=== PATIENT | male | born 1965 | race Caucasian/White ===

== ENCOUNTER 2020-05-13 20:37 | Emergency (ER) | payer BC ==
[2020-05-13 20:44] VITALS: RESP 18
[2020-05-13] MEDS ORDERED: LIDOCAINE 1% INJ 10MG/ML (20 ML MDV) SQ ONE (21:24)
[2020-05-13] MEDS ORDERED: DIPH,PERTUS(ACELL)TETVAC-LF 0.5 ML VIAL IM ONE (21:34)
--- NOTE | 2020-05-13 21:36 | ED ---
General Adult HPI - General Source: patient, RN notes reviewed Mode of arrival: ambulatory Limitations: no limitations <Ajit Garcia - Last Filed: 05/13/20 21:52> <Raquel Shelley - Last Filed: 05/14/20 16:37> - General Chief complaint: Wound/Laceration Stated complaint: Finger Laceration Time Seen by Provider: 05/13/20 20:57 - History of Present Illness Initial comments: 55-year-old male presents to the emergency room for laceration of the left second digit. Patient reports he was trying to cut a zip tie cut his finger. Denies any difficulty bending or moving his finger. Denies any possibility of foreign body. Tenderness is not up-to-date.Patient has no other complaints at this time including shortness of breath, chest pain, abdominal pain, nausea or vomiting, headache, or visual changes. (Ajit Garcia) - Related Data Previous Rx's Medication Instructions Recorded Acetaminophen with Codeine 1 tab PO Q4H PRN #20 tab 05/14/15 [Tylenol w/codeine #3] Orphenadrine [Norflex] 100 mg PO Q12H PRN #15 tablet.er 05/14/15 Allergies Allergy/AdvReac Type Severity Reaction Status Date / Time No Known Allergies Allergy Verified 05/13/20 20:44 Review of Systems ROS Other: All systems not noted in ROS Statement are negative. <Ajit Garcia - Last Filed: 05/13/20 21:52> ROS Other: All systems not noted in ROS Statement are negative. <Raquel Shelley - Last Filed: 05/14/20 16:37> ROS Statement: Those systems with pertinent positive or pertinent negative responses have been documented in the HPI. Past Medical History Past Medical History: No Reported History Additional Past Medical History / Comment(s): TB 1997 History of Any Multi-Drug Resistant Organisms: None Reported Past Surgical History: No Surgical Hx Reported Past Psychological History: No Psychological Hx Reported Smoking Status: Former smoker Past Alcohol Use History: Rare Past Drug Use History: None Reported <Ajit Garcia - Last Filed: 05/13/20 21:52> General Exam Limitations: no limitations General appearance: alert, in no apparent distress Head exam: Present: atraumatic, normocephalic Eye exam: Present: normal appearance, PERRL, EOMI. Absent: scleral icterus, conjunctival injection ENT exam: Present: normal exam, mucous membranes moist Neck exam: Present: normal inspection, full ROM. Absent: tenderness Respiratory exam: Present: normal lung sounds bilaterally. Absent: respiratory distress, wheezes Cardiovascular Exam: Present: regular rate, normal rhythm, normal heart sounds Extremities exam: Present: full ROM (Full range of motion Of the left second digitincluding full flexion of the left second digit MCP joint.), normal capillary refill (Doppler refill less than 2 seconds in the left second digit, radial pulse 2+ in the left upper extremity.), other (Patient has a 1 cm laceration noted on the palmar aspect of second digit MCP joint. No deep structure injury.) Neurological exam: Present: alert <Ajit Garcia - Last Filed: 05/13/20 21:52> Course Vital Signs 05/13/20 05/13/20 20:40 22:05 Temperature 97.9 F 98 F Pulse Rate 90 78 Respiratory 18 18 Rate Blood Pressure 166/97 133/77 O2 Sat by Pulse 97 98 Oximetry Procedures - Laceration Laceration #1 Consent Obtained: verbal consent Indication: laceration Site: hand Size (cm): 1 Description: linear Depth: simple, single layer Anesthetic Used: lidocaine 1% Anesthesia Technique: local infiltration Amount (mls): 2 Pre-repair: wound explored, irrigated extensively Type of Sutures: nylon Size of Sutures: 5-0 Number of Sutures: 3 Technique: simple, interrupted Patient Tolerated Procedure: well, no complications <Ajit Garcia - Last Filed: 05/13/20 21:52> Medical Decision Making <Ajit Garcia - Last Filed: 05/13/20 21:52> <Raquel Shelley - Last Filed: 05/14/20 16:37> - Medical Decision Making Laceration was irrigated thoroughly with saline pressure irrigation. It was sutured with 3 simple rapid sutures. Well approximated, hemostasis achieved. Discussed return parameters including those for infections. Otherwise patient will Return in 10 days for suture removal. (Ajit Garcia) I was available for consultation in the emergency department. The history and physical exam were done by the midlevel provider. I was consulted for this patients care. I reviewed the case with the midlevel provider and based on their presentation of the patient, I agree with the assessment, medical decision making and plan of care as documented. Chart was dictated using Lum[employer] dictation software. Attempts were made to correct any dictation errors however some typographical errors may persist. Patient was seen during a national state of emergency due to the Covid-19 pandemic. (Raquel Shelley) Disposition Is patient prescribed a controlled substance at d/c from ED?: No Time of Disposition: 21:53 <Ajit Garcia - Last Filed: 05/13/20 21:52> <Raquel Shelley - Last Filed: 05/14/20 16:37> Clinical Impression: Laceration Disposition: HOME SELF-CARE Condition: Good Instructions (If sedation given, give patient instructions): Care For Your Stitches (ED), Laceration (ED) Additional Instructions: Please clean wound twice daily with gentle soap and water. Apply antibiotic ointment Twice daily as well. Monitor for any signs of infection such as spreading or streaking redness, drainage, or fever and return if these occur. Return if you have any severe pain with extending the finger. Return to the emergency room for suture removal in 10 days. Referrals: Josette Albright MD [REFERRING] - 1-2 days
[2020-05-13 22:05] VITALS: BP 133/77; PULSE 78; TEMP 98
== END 2020-05-13 22:05 | disposition home or self-care (01) ==
LOC: EC 20:37
DX: S61.211A Laceration without foreign body of left index finger without damage to nail, initial encounter (principal); Z87.891 Personal history of nicotine dependence; Z86.11 Personal history of tuberculosis; Z23 Encounter for immunization; W45.8XXA Other foreign body or object entering through skin, initial encounter; Y93.89 Activity, other specified
CPT/HCPCS: 90715; 99282; 12001; 90471; J2001

== ENCOUNTER 2021-02-04 10:01 | Inpatient (IN) | payer BC ==
[2021-02-04] MEDS ORDERED: DEXAMETHASONE SOD PHOSPHATE 10 MG/ML 1 ML VIAL IVP STA (10:23)
--- NOTE | 2021-02-04 10:32 | XR ---
EXAMINATION TYPE: XR chest 1V portable DATE OF EXAM: 02/04/2021 COMPARISON: 05/14/2015 HISTORY: Shortness of breath TECHNIQUE: Single frontal view of the chest is obtained. FINDINGS: A lateral diffuse airspace disease superimposed on a background COPD. Biapical pleural thi ckening with no pleural effusion. Heart size normal. IMPRESSION: 1. Diffuse bilateral airspace disease correlate for diffuse pneumonia or ARDS. Correlate for history of covid.
[2021-02-04 10:40] LABS: ABG Base Excess -8.2 mmol/L; ABG HCO3 17 mmol/L (21-25); ABG Oxygen Saturation 87.6 % (94-97); ABG PCO2 28 mmHg (35-45); ABG PH 7.39 (7.35-7.45); ABG TCO2 18 mmol/L (19-24); Allen Test Performed? Yes
[2021-02-04 10:46] LABS: ABG PO2 54 mmHg (83-108)
[2021-02-04 10:47] LABS: Basophils % (A) 0 %; Eosinophils % (A) 0 %; HCT 44.9 % (39.0-53.0); HGB 15.2 gm/dL (13.0-17.5); Lymphocytes # (A) 0.8 k/uL (1.0-4.8); Lymphocytes % (A) 16 %; MCH 31.3 pg (25.0-35.0); MCHC 33.9 g/dL (31.0-37.0); MCV 92.4 fL (80.0-100.0); Monocytes # (A) 0.3 k/uL (0-1.0); Monocytes % (A) 5 %; Neutrophils # (A) 4.2 k/uL (1.3-7.7); Neutrophils % (A) 78 %; Platelet Count 273 k/uL (150-450); RBC 4.86 m/uL (4.30-5.90); RDW 13.1 % (11.5-15.5); WBC 5.3 k/uL (3.8-10.6)
[2021-02-04 11:03] LABS: ALT 48 U/L (4-49); AST 81 U/L (17-59); African American GFR (CKD) >90 (>60 ml/min/1.73 sqM); Albumin 3.9 g/dL (3.5-5.0); Alkaline Phosphatase 88 U/L (38-126); Anion Gap 16 mmol/L; Blood Urea Nitrogen 11 mg/dL (9-20); Carbon Dioxide 19 mmol/L (22-30); Chloride 105 mmol/L (98-107); Glucose 98 mg/dL (74-99); Non-African American GFR(CKD) >90 (>60 ml/min/1.73 sqM); Sodium 140 mmol/L (137-145); Total Bilirubin 0.7 mg/dL (0.2-1.3); Total Protein 6.8 g/dL (6.3-8.2)
[2021-02-04 11:04] LABS: INR 0.9 (<1.2); Partial Thromboplastin Time 25.2 sec (22.0-30.0); Prothrombin Time 9.5 sec (9.0-12.0)
--- NOTE | 2021-02-04 11:37 | ED ---
General Adult HPI - General Chief complaint: Shortness of Breath Stated complaint: SOB Time Seen by Provider: 02/04/21 10:05 Source: patient, family, RN notes reviewed, old records reviewed Mode of arrival: wheelchair Limitations: no limitations - History of Present Illness Initial comments: This is a 56-year-old male who presents emergency Department with difficulty breathing since Thursday evening. Patient has been exposed COVID from his daughter. Patient did not get the vaccine. Patient does have high blood pressure and does state. Patient states difficulty breathing is getting progressively worse per patient denies any pain patient denies any fever that he knows of. Patient denies abdominal pain patient denies nausea vomiting or diarrhea. Patient denies any lightheadedness or dizziness. - Related Data Home Medications Medication Instructions Recorded Confirmed Acetaminophen Tab [Tylenol Tab] 1,000 mg PO Q4H PRN 02/04/21 02/04/21 Ascorbic Acid [Vitamin C] 1,000 mg PO DAILY 02/04/21 02/04/21 Cholecalciferol (Vitamin D3) 125 mcg PO DAILY 02/04/21 02/04/21 [Vitamin D3 (125 MCG = 5,000 IU)] Ibuprofen [Motrin Ib] 800 mg PO Q4H PRN 02/04/21 02/04/21 Multivit-Min/FA/Lycopen/Lutein 1 tab PO DAILY 02/04/21 02/04/21 [Centrum Silver Men Tablet] Zinc 50 mg PO DAILY 02/04/21 02/04/21 Allergies Allergy/AdvReac Type Severity Reaction Status Date / Time No Known Allergies Allergy Verified 02/04/21 11:37 Review of Systems ROS Statement: Those systems with pertinent positive or pertinent negative responses have been documented in the HPI. ROS Other: All systems not noted in ROS Statement are negative. Past Medical History Past Medical History: No Reported History Additional Past Medical History / Comment(s): TB 1997 History of Any Multi-Drug Resistant Organisms: None Reported Past Surgical History: No Surgical Hx Reported Past Psychological History: No Psychological Hx Reported Smoking Status: Former smoker Past Alcohol Use History: Rare Past Drug Use History: None Reported General Exam - General Exam Comments Initial Comments: GENERAL: Patient is well-developed and well-nourished. Patient is nontoxic and well- hydrated and is in moderate distress. ENT: Neck is soft and supple. No significant lymphadenopathy is noted. Oropharynx is clear. Moist mucous membranes. Neck has full range of motion without eliciting any pain. EYES: The sclera were anicteric and conjunctiva were pink and moist. Extraocular movements were intact and pupils were equal round and reactive to light. Eyelids were unremarkable. PULMONARY: Patient is moving good air but has crackles in the bases CARDIOVASCULAR: There is a regular rate and rhythm without any murmurs gallops or rubs. ABDOMEN: Soft and nontender with normal bowel sounds. SKIN: Skin is clear with no lesions or rashes and otherwise unremarkable. NEUROLOGIC: Patient is alert and oriented x3. Cranial nerves II through XII are grossly intact. Motor and sensory are also intact. Normal speech, volume and content. Symmetrical smile. MUSCULOSKELETAL: Normal extremities with adequate strength and full range of motion. No lower extremity swelling or edema. No calf tenderness. LYMPHATICS: No significant lymphadenopathy is noted PSYCHIATRIC: Normal psychiatric evaluation. Limitations: no limitations Course Vital Signs 02/04/21 02/04/21 02/04/21 10:05 10:19 10:33 Temperature 97.4 F L Pulse Rate 114 H Respiratory 28 H 20 Rate Blood Pressure 112/71 O2 Sat by Pulse 62 L 85 L Oximetry 02/04/21 10:36 Temperature Pulse Rate 105 H Respiratory 30 H Rate Blood Pressure 150/90 O2 Sat by Pulse 87 L Oximetry Medical Decision Making - Medical Decision Making EKG shows sinus tachycardia at 110 bpm AR interval is 1:30 QRS is 70 QT interval 352 QTC is 476. Patient's EKG shows no ST segment elevation or depression. When patient arrived he was oxygenating in the 50s. Patient was put on a nonrebreather immediately and started oxygenating in the high 80s and appeared comfortable. Patient was given Decadron. Patient had a chest x-ray showed diffuse bilateral pneumonia consistent with COVID. I spoke with Dr. Robins and he will see the patient and consult. I spoke with Dr. Alford he agreed to admit the patient admitted the patient - Lab Data Result diagrams: 02/04/21 10:27 02/04/21 10:27 Lab Results 02/04/21 02/04/21 02/04/21 Range/Units 10:25 10:27 10:27 WBC 5.3 (3.8-10.6) k/uL RBC 4.86 (4.30-5.90) m/uL Hgb 15.2 (13.0-17.5) gm/dL Hct 44.9 (39.0-53.0) % MCV 92.4 (80.0-100.0) fL MCH 31.3 (25.0-35.0) pg MCHC 33.9 (31.0-37.0) g/dL RDW 13.1 (11.5-15.5) % Plt Count 273 (150-450) k/uL MPV 8.0 Neutrophils % 78 % Lymphocytes % 16 % Monocytes % 5 % Eosinophils % 0 % Basophils % 0 % Neutrophils # 4.2 (1.3-7.7) k/uL Lymphocytes # 0.8 L (1.0-4.8) k/uL Monocytes # 0.3 (0-1.0) k/uL Eosinophils # 0.0 (0-0.7) k/uL Basophils # 0.0 (0-0.2) k/uL PT 9.5 (9.0-12.0) sec INR 0.9 (<1.2) APTT 25.2 (22.0-30.0) sec D-Dimer 1.84 H (<0.60) mg/L FEU Sample Site rrad ABG pH 7.39 (7.35-7.45) ABG pCO2 28 L (35-45) mmHg ABG pO2 54 L* (83-108) mmHg ABG HCO3 17 L (21-25) mmol/L ABG Total CO2 18 L (19-24) mmol/L ABG O2 Saturation 87.6 L (94-97) % ABG Base Excess -8.2 mmol/L Keegan Test Yes FiO2 100 % Sodium (137-145) mmol/L Potassium (3.5-5.1) mmol/L Chloride (98-107) mmol/L Carbon Dioxide (22-30) mmol/L Anion Gap mmol/L BUN (9-20) mg/dL Creatinine (0.66-1.25) mg/dL Est GFR (CKD-EPI)AfAm (>60 ml/min/1.73 sqM) Est GFR (CKD-EPI)NonAf (>60 ml/min/1.73 sqM) Glucose (74-99) mg/dL Calcium (8.4-10.2) mg/dL Total Bilirubin (0.2-1.3) mg/dL AST (17-59) U/L ALT (4-49) U/L Alkaline Phosphatase (38-126) U/L Troponin I (0.000-0.034) ng/mL NT-Pro-B Natriuret Pep pg/mL Total Protein (6.3-8.2) g/dL Albumin (3.5-5.0) g/dL Coronavirus (PCR) (Not Detectd) 02/04/21 02/04/21 02/04/21 Range/Units 10:27 10:27 10:27 WBC (3.8-10.6) k/uL RBC (4.30-5.90) m/uL Hgb (13.0-17.5) gm/dL Hct (39.0-53.0) % MCV (80.0-100.0) fL MCH (25.0-35.0) pg MCHC (31.0-37.0) g/dL RDW (11.5-15.5) % Plt Count (150-450) k/uL MPV Neutrophils % % Lymphocytes % % Monocytes % % Eosinophils % % Basophils % % Neutrophils # (1.3-7.7) k/uL Lymphocytes # (1.0-4.8) k/uL Monocytes # (0-1.0) k/uL Eosinophils # (0-0.7) k/uL Basophils # (0-0.2) k/uL PT (9.0-12.0) sec INR (<1.2) APTT (22.0-30.0) sec D-Dimer (<0.60) mg/L FEU Sample Site ABG pH (7.35-7.45) ABG pCO2 (35-45) mmHg ABG pO2 (83-108) mmHg ABG HCO3 (21-25) mmol/L ABG Total CO2 (19-24) mmol/L ABG O2 Saturation (94-97) % ABG Base Excess mmol/L Keegan Test FiO2 % Sodium 140 (137-145) mmol/L Potassium 4.0 (3.5-5.1) mmol/L Chloride 105 (98-107) mmol/L Carbon Dioxide 19 L (22-30) mmol/L Anion Gap 16 mmol/L BUN 11 (9-20) mg/dL Creatinine 0.87 (0.66-1.25) mg/dL Est GFR (CKD-EPI)AfAm >90 (>60 ml/min/1.73 sqM) Est GFR (CKD-EPI)NonAf >90 (>60 ml/min/1.73 sqM) Glucose 98 (74-99) mg/dL Calcium 9.0 (8.4-10.2) mg/dL Total Bilirubin 0.7 (0.2-1.3) mg/dL AST 81 H (17-59) U/L ALT 48 (4-49) U/L Alkaline Phosphatase 88 (38-126) U/L Troponin I 0.025 (0.000-0.034) ng/mL NT-Pro-B Natriuret Pep 222 pg/mL Total Protein 6.8 (6.3-8.2) g/dL Albumin 3.9 (3.5-5.0) g/dL Coronavirus (PCR) (Not Detectd) 02/04/21 Range/Units 10:27 WBC (3.8-10.6) k/uL RBC (4.30-5.90) m/uL Hgb (13.0-17.5) gm/dL Hct (39.0-53.0) % MCV (80.0-100.0) fL MCH (25.0-35.0) pg MCHC (31.0-37.0) g/dL RDW (11.5-15.5) % Plt Count (150-450) k/uL MPV Neutrophils % % Lymphocytes % % Monocytes % % Eosinophils % % Basophils % % Neutrophils # (1.3-7.7) k/uL Lymphocytes # (1.0-4.8) k/uL Monocytes # (0-1.0) k/uL Eosinophils # (0-0.7) k/uL Basophils # (0-0.2) k/uL PT (9.0-12.0) sec INR (<1.2) APTT (22.0-30.0) sec D-Dimer (<0.60) mg/L FEU Sample Site ABG pH (7.35-7.45) ABG pCO2 (35-45) mmHg ABG pO2 (83-108) mmHg ABG HCO3 (21-25) mmol/L ABG Total CO2 (19-24) mmol/L ABG O2 Saturation (94-97) % ABG Base Excess mmol/L Keegan Test FiO2 % Sodium (137-145) mmol/L Potassium (3.5-5.1) mmol/L Chloride (98-107) mmol/L Carbon Dioxide (22-30) mmol/L Anion Gap mmol/L BUN (9-20) mg/dL Creatinine (0.66-1.25) mg/dL Est GFR (CKD-EPI)AfAm (>60 ml/min/1.73 sqM) Est GFR (CKD-EPI)NonAf (>60 ml/min/1.73 sqM) Glucose (74-99) mg/dL Calcium (8.4-10.2) mg/dL Total Bilirubin (0.2-1.3) mg/dL AST (17-59) U/L ALT (4-49) U/L Alkaline Phosphatase (38-126) U/L Troponin I (0.000-0.034) ng/mL NT-Pro-B Natriuret Pep pg/mL Total Protein (6.3-8.2) g/dL Albumin (3.5-5.0) g/dL Coronavirus (PCR) Detected A (Not Detectd) Critical Care Time Critical Care Time: Yes Total Critical Care Time: 35 Disposition Clinical Impression: Pneumonia due to COVID-19 virus Disposition: ADMITTED IP TO THIS [facility] Referrals: Monisha Alford MD [Primary Care Provider] - 1-2 days Time of Disposition: 11:54
[2021-02-04] MEDS ORDERED: ACETAMINOPHEN TAB 325 MG TAB PO PRN (11:55)
[2021-02-04] MEDS ORDERED: NALOXONE 0.4 MG/ML 1 ML VIAL IV PRN (11:55)
[2021-02-04] MEDS ORDERED: ACETAMINOPHEN TAB 500 MG TAB PO PRN (14:00)
[2021-02-04] MEDS ORDERED: IBUPROFEN 400 MG TAB PO PRN (14:00)
--- NOTE | 2021-02-04 14:24 | P.CNPUL ---
History of Present Illness Consult date: 02/04/21 Reason for consult: hypoxemia, pneumonia History of present illness: 56-year-old male patient, known history of hypertension, coming in today because of generalized weakness, fatigue, and some increased shortness of breath and cough. His symptoms started approximately 4 days ago. He was quite hypoxic at the time of his arrival. The patient was was not having any chest pain or lightheadedness or dizziness. At that point, the patient was found to be afebrile. Initial pulse ox was 62% on room air oxygen. The patient was placed on oxygen and currently is on 15 L high flow and 100% nonrebreather facemask. The patient's pulse ox is currently up to 87%. He is resting comfortably in bed. His breathing is slightly labored. Nevertheless his able to communicate and answer questions appropriately. His is also is at the bedside. His respiratory rate is in the low 30s. Neurologically is intact. His blood work is showing a white cell count of 5.3 with hemoglobin of 15.2. D-dimer is at 1.8 with normal fibrillation profile. The blood gas showed a pH of 7.39 with a pCO2 of 28 and pO2 of 54 and this was done and FiO2 of 100%. BUN is at 19 with a creatinine of 0.8. Normal electrolytes. Serum bicarb is at 19. Overnight the testing was positive. ProBNP level was 222 and a troponin level is at 0.0 25. Inflammatory markers are still pending for now. He was started on Decadron. I'm going to start him also on Baricitinib. D-dimer is at 1.8. Review of Systems Constitutional: Reports weakness Eyes: denies as per HPI, denies blurred vision, denies bulging eye, denies decreased vision, denies diplopia, denies discharge, denies dry eye, denies irritation, denies itching, denies pain, denies photophobia, denies loss of peripheral vision, denies loss of vision, denies tunnel vision/blind spots Ears, nose, mouth and throat: Reports as per HPI Breasts: absent: as per HPI, gynecomastia Cardiovascular: Reports shortness of breath Respiratory: Reports as per HPI, Reports cough, Reports dyspnea Gastrointestinal: Reports as per HPI Genitourinary: Reports as per HPI Musculoskeletal: Reports as per HPI Musculoskeletal: absent: ankle pain, ankle stiffness, ankle swelling, as per HPI, elbow pain, elbow stiffness, elbow swelling, foot pain, foot stiffness, foot swelling, hand pain, hand stiffness, hand swelling, hip pain, hip stiffness, hip swelling, knee pain, knee stiffness, knee swelling, shoulder pain, shoulder stiffness, shoulder swelling, wrist pain, wrist stiffness, wrist swelling Integumentary: Reports as per HPI Neurological: Reports as per HPI Psychiatric: Reports as per HPI Endocrine: Reports as per HPI Hematologic/Lymphatic: Reports as per HPI Allergic/Immunologic: Reports as per HPI Past Medical History Past Medical History: No Reported History, Hypertension Additional Past Medical History / Comment(s): TB 1997 History of Any Multi-Drug Resistant Organisms: None Reported Past Surgical History: No Surgical Hx Reported Past Psychological History: No Psychological Hx Reported Smoking Status: Former smoker Past Alcohol Use History: Rare Past Drug Use History: None Reported Medications and Allergies Home Medications Medication Instructions Recorded Confirmed Type Acetaminophen Tab [Tylenol Tab] 1,000 mg PO Q4H PRN 02/04/21 02/04/21 History Ascorbic Acid [Vitamin C] 1,000 mg PO DAILY 02/04/21 02/04/21 History Cholecalciferol (Vitamin D3) 125 mcg PO DAILY 02/04/21 02/04/21 History [Vitamin D3 (125 MCG = 5,000 IU)] Ibuprofen [Motrin Ib] 800 mg PO Q4H PRN 02/04/21 02/04/21 History Multivit-Min/FA/Lycopen/Lutein 1 tab PO DAILY 02/04/21 02/04/21 History [Centrum Silver Men Tablet] Zinc 50 mg PO DAILY 02/04/21 02/04/21 History Allergies Allergy/AdvReac Type Severity Reaction Status Date / Time No Known Allergies Allergy Verified 02/04/21 11:37 Physical Exam Vitals: Vital Signs Temp Pulse Resp BP Pulse Ox 02/04/21 14:16 91 L 02/04/21 12:30 96 27 H 122/90 88 L 02/04/21 12:00 97 29 H 124/87 89 L 02/04/21 11:30 98 32 H 124/79 89 L 02/04/21 11:00 102 H 25 H 125/85 92 L 02/04/21 10:36 105 H 30 H 150/90 87 L 02/04/21 10:33 85 L 02/04/21 10:30 107 H 30 H 125/85 87 L 02/04/21 10:19 20 02/04/21 10:18 53 L 02/04/21 10:05 97.4 F L 114 H 28 H 112/71 62 L Intake and Output 02/03/21 02/04/21 02/04/21 22:59 06:59 14:59 Other: Weight 86.183 kg Gen. appearance the patient is in mild degree of respiratory distress. Is able to speak up. Sentences. Currently is on 100% nonrebreather facemask. Head exam was generally normal. There was no scleral icterus or corneal arcus. Mucous membranes were moist. Neck was supple and without jugular venous distension, thyromegaly, or carotid bruits. Carotids were easily palpable bilaterally. There was no adenopathy. Lungs sounds are diminished in the patient's crackles in the mid and lower lung talamantes bilaterally Cardiac exam revealed the PMI to be normally situated and sized. The rhythm was regular and no extrasystoles were noted during several minutes of auscultation. The first and second heart sounds were normal and physiologic splitting of the second heart sound was noted. There were no murmurs, rubs, clicks, or gallops. Abdominal exam revealed normal bowel sounds. The abdomen was soft, non-tender, and without masses, organomegaly, or appreciable enlargement of the abdominal aorta. Examination of the extremities revealed easily palpable radial, femoral and pedal pulses. There was no cyanosis, clubbing or edema. Examination of the skin revealed no evidence of significant rashes, suspicious appearing nevi or other concerning lesions. Neurologically, the patient is awake and alert and the patient does not have any focal neurological deficit. Cranial nerves are essentially intact. Results - Laboratory Findings CBC and BMP: 02/04/21 10:27 02/04/21 10:27 ABG ABG pH 7.39 (7.35-7.45) 02/04/21 10:25 ABG pCO2 28 mmHg (35-45) L 02/04/21 10:25 ABG pO2 54 mmHg (83-108) L* 02/04/21 10:25 ABG O2 Saturation 87.6 % (94-97) L 02/04/21 10:25 PT/INR, D-dimer PT 9.5 sec (9.0-12.0) 02/04/21 10:27 INR 0.9 (<1.2) 02/04/21 10:27 D-Dimer 1.84 mg/L FEU (<0.60) H 02/04/21 10:27 Abnormal lab findings: Abnormal Labs 02/04/21 02/04/21 02/04/21 10:25 10:27 10:27 Lymphocytes # 0.8 L D-Dimer 1.84 H ABG pCO2 28 L ABG pO2 54 L* ABG HCO3 17 L ABG Total CO2 18 L ABG O2 Saturation 87.6 L Carbon Dioxide AST Coronavirus (PCR) 02/04/21 02/04/21 10:27 10:27 Lymphocytes # D-Dimer ABG pCO2 ABG pO2 ABG HCO3 ABG Total CO2 ABG O2 Saturation Carbon Dioxide 19 L AST 81 H Coronavirus (PCR) Detected A - Diagnostic Findings Chest x-ray: image reviewed Assessment and Plan Plan: 1 acute COVID 19 related pneumonia with secondary respiratory failure. The patient started having symptoms approximately 4 days ago. Currently on 100% nonrebreather facemask in addition to high flow oxygen at 15 L. Breathing is mildly labored. Affirmative markers are still pending for now. Chest x-ray showing diffuse bilateral pulmonary infiltrates consistent with COVID 19 related pneumonia. This is unvaccinated individual. Inflammatory markers are still pending for now. D-dimer is relatively low. 2 shortness of breath secondary to above 3 mild non-anion gap metabolic acidosis 4 hypertension Plan Admit this patient to the hospital and the patient can go to the medical floor Monitor the oxygenation and keep the 100% on a nonrebreather facemask and utilize airvo if needed or a BiPAP if needed, for now his breathing is nonlab ored and should be able to do well with 100% nonrebreather Continue Decadron. The dose of 6 mg every 12 hours Start the patient on Baricitinib per protocol Lovenox 40 mg subcu for DVT prophylaxis Multivitamin cocktail for COVID 5 19 related infections We'll continue to follow. We'll make further recommendations based on his progress.
[2021-02-04] MEDS: BARICITINIB 2 MG TABLET PO SCH (15:22)
[2021-02-04] MEDS: dexAMETHasone 2 MG TAB PO SCH (21:53)
--- NOTE | 2021-02-05 08:11 | XR ---
EXAMINATION TYPE: XR chest 1V portable DATE OF EXAM: 02/05/2021 CLINICAL HISTORY: Difficulty breathing progress study. TECHNIQUE: Single AP portable upright view of the chest is obtained. COMPARISON: Chest x-ray from one day earlier and older study 2016 FINDINGS: Background chronic emphysematous and pulmonary fibrotic change with reticulonodular increa sed opacities bilaterally redemonstrated. Cardiac silhouette size stable and upper limits of normal. Osseous structures are intact. IMPRESSION: Background chronic emphysematous and pulmonary fibrotic changes with bilateral multifocal reticulonodular opacities consistent with known covid-19 infection are redemonstrated. Perhaps sligh t improvement in the right lung base from one day earlier otherwise no significant interval change.
[2021-02-05] MEDS: ASCORBIC ACID 500 MG TAB PO SCH (08:53)
[2021-02-05] MEDS: CHOLECALCIFEROL 25 MCG (1000 IU) TABLET PO SCH (08:53)
[2021-02-05] MEDS: ENOXAPARIN 40 MG/0.4 ML SYRINGE SQ SCH (08:53)
[2021-02-05] MEDS: PANTOPRAZOLE 40 MG/10 ML VIAL IVP SCH ×2 (08:53→21:19)
[2021-02-05] MEDS: ZINC SULFATE 220 MG CAP PO SCH (08:53)
[2021-02-05] MEDS: MULTIVITAMINS, THERA 1 EACH TAB PO SCH (08:53)
[2021-02-05] MEDS: dexAMETHasone 2 MG TAB PO SCH ×2 (08:53→21:20)
--- NOTE | 2021-02-05 08:53 | US ---
EXAMINATION TYPE: US venous doppler duplex LE DATE OF EXAM: 02/05/2021 8:40 AM COMPARISON: NONE CLINICAL HISTORY: elevated d-dimer. SIDE PERFORMED: Bilateral TECHNIQUE: The lower extremity deep venous system is examined utilizing real time linear array sonog maximiliano with graded compression, doppler sonography and color-flow sonography. VESSELS IMAGED: Common Femoral Vein Deep Femoral Vein Greater Saphenous Vein * Femoral Vein Popliteal Vein Small Saphenous Vein * Proximal Calf Veins (* superficial vessels) Right Leg: Negative for DVT Left Leg: Negative for DVT Grayscale, color doppler, spectral doppler imaging performed of the deep veins of the bilateral lower extremities. There is normal flow, compressibility, vascular waveforms. IMPRESSION: No ultrasound evidence for acute DVT in either lower extremity.
[2021-02-05] MEDS ORDERED: dexAMETHasone 2 MG TAB PO SCH (09:00)
[2021-02-05] MEDS: SUCRALFATE 1 GM TAB PO SCH ×2 (09:02→17:37)
[2021-02-05 10:16] LABS: Basophils # (A) 0.01 X 10*3/uL (0.00-0.10); Basophils % (A) 0.5 %; Eosinophils # (A) 0 X 10*3/uL (0.04-0.35); Eosinophils % (A) 0 %; HCT 41.2 % (39.6-50.0); HGB 14.1 g/dL (13.0-17.0); Lymphocytes # (A) 0.34 X 10*3/uL (0.90-5.00); Lymphocytes % (A) 15.3 %; MCH 31.1 pg (27.0-32.0); MCHC 34.2 g/dL (32.0-37.0); MCV 90.9 fL (80.0-97.0); Mean Platelet Volume 10.7 fL (9.5-12.2); Monocytes # (A) 0.32 X 10*3/uL (0.20-1.00); Monocytes % (A) 14.4 %; Neutrophils # (A) 1.52 X 10*3/uL (1.80-7.70); Neutrophils % (A) 68.4 %; Platelet Count 294 X 10*3/uL (140-440); RBC 4.53 X 10*6/uL (4.40-5.60); RDW 13.1 % (11.5-14.5); WBC 2.22 X 10*3/uL (4.50-10.00)
[2021-02-05 10:58] LABS: African American GFR (CKD) 121.4 (60.0-200.0); Albumin/Globulin Ratio 1.6 (1.60-3.17); Anion Gap 18.9 mmol/L (4.00-12.00); BUN/Creat Ratio 20.29 Ratio (12.00-20.00); Blood Urea Nitrogen 14.2 mg/dL (9.0-27.0); C Reactive Protein 15.5 mg/dL (0.00-0.80); Calcium 8.8 mg/dL (8.7-10.3); Carbon Dioxide 17.1 mmol/L (21.6-31.8); Globulin 2.5 g/dL (1.6-3.3); Non-African American GFR(CKD) 104.8 (60.0-200.0); Potassium 4.4 mmol/L (3.5-5.5); Total Bilirubin 0.4 mg/dL (0.30-1.20); Total Protein 6.5 g/dL (6.2-8.2)
--- NOTE | 2021-02-05 12:39 | P.PN ---
Subjective Progress Note Date: 02/05/21 56-year-old male patient, known history of hypertension, coming in today because of generalized weakness, fatigue, and some increased shortness of breath and cough. His symptoms started approximately 4 days ago. He was quite hypoxic at the time of his arrival. The patient was was not having any chest pain or lightheadedness or dizziness. At that point, the patient was found to be afebrile. Initial pulse ox was 62% on room air oxygen. The patient was placed on oxygen and currently is on 15 L high flow and 100% nonrebreather facemask. The patient's pulse ox is currently up to 87%. He is resting comfortably in bed. His breathing is slightly labored. Nevertheless his able to communicate and answer questions appropriately. His is also is at the bedside. His respiratory rate is in the low 30s. Neurologically is intact. His blood work is showing a white cell count of 5.3 with hemoglobin of 15.2. D-dimer is at 1.8 with normal fibrillation profile. The blood gas showed a pH of 7.39 with a pCO2 of 28 and pO2 of 54 and this was done and FiO2 of 100%. BUN is at 19 with a creatinine of 0.8. Normal electrolytes. Serum bicarb is at 19. Overnight the testing was positive. ProBNP level was 222 and a troponin level is at 0.0 25. Inflammatory markers are still pending for now. He was started on Decadron. I'm going to start him also on Baricitinib. D-dimer is at 1.8. Elevation of 02/05/2021, the patient is being seen for a follow-up. The patient was seen in consultation yesterday. The patient was getting progressively more hypoxic and at the time of my evaluation in emergency the patient was 100% on a beta facemasks and 15 L of oxygen by nasal cannula. This morning, he is on Airvo at 60 L nasal cannula and the patient is on FiO2 of 90%. He is still wearing his 100% nonrebreather facemask. Chest x-ray showing diffuse bilateral pulmonary infiltrates, essentially unchanged compared to yesterday and this is consistent with a viral pneumonia. In terms of his pulse ox, is around 90%. Laying down comfortably in bed. Breathing is nonlabored at this point in time. D-dimer is at 3.33. The white cell count is at 2.2 with a hemoglobin of 14.4. He does have a component of anion gap metabolic acidosis with a gap of 18 and a serum bicarb of 17. Creatinine is at 0.7. LFTs are normal. LDH level is at 735. He is currently being treated with a combination of Decadron 6 mg twice a day and Baricitinib 4 mg by mouth daily. Doppler of the lower extremity has been negative for DVTs. Blood work shows ongoing lymphopenia, lymphocyte count is up to 0.34. Clinically, he looks a little bit lethargic yet arousable and follows commands and answers questions. He seems to be appropriate. Oral intake is quite diminished at this point in time as the patient is on Airvo in addition to 100% on a on nonrebreather facemask Objective - Vital Signs Vital signs: Vital Signs Temp 98.6 F 02/05/21 11:42 Pulse 89 02/05/21 11:42 Resp 23 02/05/21 11:42 BP 131/83 02/05/21 11:42 Pulse Ox 90 L 02/05/21 11:42 Intake & Output 02/04/21 02/05/21 02/05/21 18:59 06:59 18:59 Weight 86.183 kg - Exam Gen. appearance the patient is in mild degree of respiratory distress. Is able to speak up. Sentences. Currently is on Airvo 60 L an FiO2 of 90% Head exam was generally normal. There was no scleral icterus or corneal arcus. Mucous membranes were moist. Neck was supple and without jugular venous distension, thyromegaly, or carotid b ruits. Carotids were easily palpable bilaterally. There was no adenopathy. Lungs sounds are diminished in the patient's crackles in the mid and lower lung talamantes bilaterally Cardiac exam revealed the PMI to be normally situated and sized. The rhythm was regular and no extrasystoles were noted during several minutes of auscultation. The first and second heart sounds were normal and physiologic splitting of the second heart sound was noted. There were no murmurs, rubs, clicks, or gallops. Abdominal exam revealed normal bowel sounds. The abdomen was soft, non-tender, and without masses, organomegaly, or appreciable enlargement of the abdominal aorta. Examination of the extremities revealed easily palpable radial, femoral and pedal pulses. There was no cyanosis, clubbing or edema. Examination of the skin revealed no evidence of significant rashes, suspicious appearing nevi or other concerning lesions. Neurologically, the patient is awake and alert and the patient does not have any focal neurological deficit. Cranial nerves are essentially intact. - Labs CBC & Chem 7: 02/05/21 06:10 02/05/21 06:10 Labs: Abnormal Lab Results - Last 24 Hours (Table) 02/05/21 02/05/21 02/05/21 Range/Units 06:10 06:10 06:10 WBC 2.22 L (4.50-10.00) X 10*3/uL Neutrophils # 1.52 L (1.80-7.70) X 10*3/uL Lymphocytes # 0.34 L (0.90-5.00) X 10*3/uL Eosinophils # 0 L (0.04-0.35) X 10*3/uL D-Dimer 3.33 H (<0.60) mg/L FEU Carbon Dioxide 17.1 L (21.6-31.8) mmol/L Anion Gap 18.90 H (4.00-12.00) mmol/L BUN/Creatinine Ratio 20.29 H (12.00-20.00) Ratio Glucose 143 H (70-110) mg/dL AST 61 H (14-35) U/L Lactate Dehydrogenase 735 H (120-246) U/L C-Reactive Protein 15.50 H (0.00-0.80) mg/dL Assessment and Plan Plan: 1 acute COVID 19 related pneumonia with secondary respiratory failure. The patient started having symptoms approximately 4 days ago. Currently on 100% nonrebreather facemask in addition to high flow oxygen at 15 L. Breathing is mildly labored. . Chest x-ray showing diffuse bilateral pulmonary infiltrates consistent with COVID 19 related pneumonia. This is unvaccinated individual. Inflammatory markers are still pending for now. D-dimer is relatively low. She has further decline in the story status. The patient is currently on Airvo at 60 L with an FiO2 of 90% in addition to 100% nonrebreather facemask. He is on a combination of Decadron and Baricitinib. LDH is nonelevated. D-dimer is mildly elevated. Chest x-ray findings and essentially stable. 2 shortness of breath secondary to above 3 mild non-anion gap metabolic acidosis 4 hypertension Plan Continue Airvo 60 L an FiO2 of 90% and combination with a nonrebreather facemask Continue Decadron. The dose of 6 mg every 12 hours Start the patient on Baricitinib per protocol Lovenox 40 mg subcu for DVT prophylaxis Multivitamin cocktail for COVID 19 related infections We'll continue to follow. We'll make further recommendations based on his progress. Switch this patient to D5 bicarb infusion at the rate of 75 mL an hour. He does have a component of mild anion gap metabolic acidosis. Transferred to the intensive care unit once the rooms available.
[2021-02-05] MEDS: DEXTROSE 5% IN WATER 1,000 ML with SODIUM BICARB (1 MEQ/ML) 150 ML IV SCH (15:05)
[2021-02-05] MEDS: BARICITINIB 2 MG TABLET PO SCH (15:28)
[2021-02-05 17:04] LABS: Glucose,Whole Blood 202 mg/dL (75-99)
--- NOTE | 2021-02-05 18:11 | P.HPIM ---
History of Present Illness H&P Date: 02/04/21 Chief Complaint: COVID-19 pneumonia/acute hypoxemic respiratory failure HISTORY OF PRESENT ILLNESS: This is a 56-year-old male with a past medical history significant for hypertension and hypertensive cardiovascular disease, hyperlipidemia, history of tobacco use and dependence , presented to the emergency department at [facility] with increased coughing and increased shortness breath that started last and has been getting worse over the last few days, yesterday he was extremely short of breath and his oxygen saturation was in the low 70s, his tried to get him to the ER but eventually called 911 and the patient was brought into the ER at [facility] where he had a chest x-ray that did show evidence of bilateral patchy infiltrate suggestive of Covid pneumonia, his COVID-19 PCR was positive, patient was started on nonrebreather, and later on was seen in consultation by pulmonary medicine and he was placed on Airvo and was started on Bacitinib 4 mg po daily and the patient was admitted to the hospital for further evaluation and treatment. REVIEW OF SYSTEMS: Constitutional: positive for fever, chills, night sweats. No weight change. positive for weakness, fatigue no lethargy. No daytime sleepiness. HEENT: No headache. No blurred vision or double vision, no loss of vision. No loss of Hearing, no ringing in the ears, no dizziness. No nasal drainage or congestion. No epistaxis. No sore throat. Lungs: positive for shortness of breath, positive for cough, positive for sputum production. positive for wheezing. Reports dyspnea with activity. Cardiovascular: No chest pain, no lower extremity edema. No palpitations. No paroxysmal nocturnal dyspnea. No orthopnea. No lightheadedness or dizziness. No syncopal episodes. Abdominal: Reports abdominal pain. No nausea, vomiting. No diarrhea. No constipation. No bloody or tarry stools reports loss of appetite. Genitourinary: No dysuria, increased frequency, urgency. No urinary retention. Musculoskeletal: positive for myalgias. positive for muscle weakness, no gait dysfunction, no frequent falls. No back pain. No neck pain. Integumentary: No wounds, no lesions. No rash or pruritus. No unusual bruising. No change in hair or nails. Neurologic: No aphasia. No facial droop. No change in mentation. No head injury. No headache. No paralysis. No paresthesia. Psychiatric: No depression. No anxiety. No mood swings. Endocrine: No abnormal blood sugars. No weight change. PAST MEDICAL HISTORY: Hypertension and hypertensive cardiovascular disease Hyperlipidemia PAST SURGICAL HISTORY: Medical hernia surgery. SOCIAL HISTORY: Patient used to smoke about a pack every days he smoked when he was 15-year-old and quit about 4 years ago, he denies any alcohol ingestion, no drug use or abuse. FAMILY HISTORY: Father at age of 61 from tractor accident developed to have a significant for embolism after that, mother is 75-year-old with no health issue, patient has one sister with prothrombin gene mutation developed to have appropriate embolism and she is on a blood thinner, patient has 2 daughters no major medical problems. PHYSICAL EXAMINATION: General: 56-year-old male laying down in bed in moderate to severe re spiratory distress HEENT: Head is atraumatic, normocephalic, pupils were equal round reactive to light and recommendation, extraocular muscle movement were intact, sclera nonicteric, conjunctivae were pale, mucous membranes of the mouth are somewhat dry. Neck: Supple, no JVP, normal carotid upstroke bilaterally, no lymphadenopathy. Chest: Decreased breath sounds at the bases, few rhonchi, moderate expiratory wheezes, no chest wall tenderness, positive for moderate intercostal retractions. Heart: First heart sound is normal, second heart sounds normal, tachycardic there is no gallop or murmur. Abdomen: Soft, nontender, nondistended, positive bowel sounds, no hepatosplenomegaly. Extremities: There is no edema no calf tenderness DP +2 bilaterally. Neurologic examination: Patient is awake alert and oriented X 3, cranial nerves II-12 appear grossly intact, muscle power were 5 out of 5 in upper extremities and 5 out of 5 in bilateral lower extremities, deep tendon reflexes normal bilaterally. ASSESSMENT AND PLAN: 1. Acute hypoxemic respiratory failure due to bilateral patchy interstitial pneumonia due to COVID-19 pneumonia. Continue patient on Decadron 6 mg orally twice every day, continue patient on Vitamin C 1000 mg orally once every day, continue zinc 220 mg once every day, continue vitamin D 1000 units once every day, continue with Baricitinib 4 mg orally once every day for 14 doses continue oxygen support, transfer the patient to intensive care unit at the patient is not better. Pulmonary consultation appreciated. 2. Bilateral Covid pneumonia with ARDS. Continue with Airvo, continue dexamethasone 6 mg orally twice every day, continue with supportive care. 3. Mild non-anion gap metabolic acidosis. Continue IV fluid resuscitation, continue to monitor the patient very closely. 4. DVT prophylaxis. Continue Lovenox 40 mg subcutaneously every 24 hours 5. GERD and GI prophylaxis. Continue patient on Protonix 40 mg IV push every 12 hours as well as Carafate 1 g orally twice every day . 6. Admit to inpatient. Estimate a length of stay 2 midnights . 7. Patient is full code. Past Medical History Past Medical History: No Reported History, Hypertension Additional Past Medical History / Comment(s): TB 1997 History of Any Multi-Drug Resistant Organisms: None Reported Past Surgical History: No Surgical Hx Reported Past Anesthesia/Blood Transfusion Reactions: No Reported Reaction Past Psychological History: No Psychological Hx Reported Smoking Status: Former smoker Past Alcohol Use History: Rare Past Drug Use History: None Reported Medications and Allergies Home Medications Medication Instructions Recorded Confirmed Type Acetaminophen Tab [Tylenol Tab] 1,000 mg PO Q4H PRN 02/04/21 02/04/21 History Ascorbic Acid [Vitamin C] 1,000 mg PO DAILY 02/04/21 02/04/21 History Cholecalciferol (Vitamin D3) 125 mcg PO DAILY 02/04/21 02/04/21 History [Vitamin D3 (125 MCG = 5,000 IU)] Ibuprofen [Motrin Ib] 800 mg PO Q4H PRN 02/04/21 02/04/21 History Multivit-Min/FA/Lycopen/Lutein 1 tab PO DAILY 02/04/21 02/04/21 History [Centrum Silver Men Tablet] Zinc 50 mg PO DAILY 02/04/21 02/04/21 History Allergies Allergy/AdvReac Type Severity Reaction Status Date / Time No Known Allergies Allergy Verified 02/04/21 11:37 Physical Exam Vitals: Vital Signs Temp Pulse Pulse Resp BP BP Pulse Ox 02/05/21 17:20 97.9 F 94 24 124/72 02/05/21 14:00 97.8 F 85 19 136/80 02/05/21 11:42 98.6 F 89 23 131/83 90 L 02/05/21 08:52 90 L 02/05/21 04:50 99.5 F 92 20 138/102 97 02/05/21 04:10 93 L 02/05/21 02:39 94 18 137/86 94 L 02/05/21 01:01 93 L 02/05/21 00:05 91 20 129/81 90 L 02/04/21 21:54 91 20 149/80 90 L 02/04/21 21:38 89 L 02/04/21 19:00 96 32 H 126/80 89 L 02/04/21 18:00 100 35 H 84 L Intake and Output 02/05/21 02/05/21 02/05/21 06:59 14:59 22:59 Other: Voiding Method Urinal Results CBC & Chem 7: 02/05/21 06:10 02/05/21 06:10 Labs: Abnormal Lab Results - Last 24 Hours (Table) 02/05/21 02/05/21 02/05/21 Range/Units 06:10 06:10 06:10 WBC 2.22 L (4.50-10.00) X 10*3/uL Neutrophils # 1.52 L (1.80-7.70) X 10*3/uL Lymphocytes # 0.34 L (0.90-5.00) X 10*3/uL Eosinophils # 0 L (0.04-0.35) X 10*3/uL D-Dimer 3.33 H (<0.60) mg/L FEU Carbon Dioxide 17.1 L (21.6-31.8) mmol/L Anion Gap 18.90 H (4.00-12.00) mmol/L BUN/Creatinine Ratio 20.29 H (12.00-20.00) Ratio Glucose 143 H (70-110) mg/dL POC Glucose (mg/dL) (75-99) mg/dL AST 61 H (14-35) U/L Lactate Dehydrogenase 735 H (120-246) U/L C-Reactive Protein 15.50 H (0.00-0.80) mg/dL 02/05/21 Range/Units 17:02 WBC (4.50-10.00) X 10*3/uL Neutrophils # (1.80-7.70) X 10*3/uL Lymphocytes # (0.90-5.00) X 10*3/uL Eosinophils # (0.04-0.35) X 10*3/uL D-Dimer (<0.60) mg/L FEU Carbon Dioxide (21.6-31.8) mmol/L Anion Gap (4.00-12.00) mmol/L BUN/Creatinine Ratio (12.00-20.00) Ratio Glucose (70-110) mg/dL POC Glucose (mg/dL) 202 H (75-99) mg/dL AST (14-35) U/L Lactate Dehydrogenase (120-246) U/L C-Reactive Protein (0.00-0.80) mg/dL Thrombosis Risk Factor Assmnt - Choose All That Apply Each Factor Represents 1 point: Age 41-60 years Other Risk Factors: No Thrombosis Risk Factor Assessment Total Risk Factor Score: 1 Thrombosis Risk Factor Assessment Level: Low Risk
[2021-02-06] MEDS: DEXTROSE 5% IN WATER 1,000 ML with SODIUM BICARB (1 MEQ/ML) 150 ML IV SCH (04:21)
[2021-02-06 06:19] LABS: ALT 53 U/L (4-49); AST 59 U/L (17-59); African American GFR (CKD) >90 (>60 ml/min/1.73 sqM); Albumin 3.4 g/dL (3.5-5.0); Alkaline Phosphatase 79 U/L (38-126); Anion Gap 6 mmol/L; Blood Urea Nitrogen 19 mg/dL (9-20); C Reactive Protein 5.6 mg/dL (<1.0); Calcium 8.8 mg/dL (8.4-10.2); Carbon Dioxide 27 mmol/L (22-30); Chloride 103 mmol/L (98-107); Glucose 167 mg/dL (74-99); LDH 1685 U/L (313-618); Non-African American GFR(CKD) >90 (>60 ml/min/1.73 sqM); Potassium 4.1 mmol/L (3.5-5.1); Sodium 136 mmol/L (137-145); Total Bilirubin 0.5 mg/dL (0.2-1.3); Total Protein 6.1 g/dL (6.3-8.2)
[2021-02-06 06:20] LABS: Basophils % (A) 1 %; Eosinophils % (A) 0 %; HCT 39.3 % (39.0-53.0); HGB 13.6 gm/dL (13.0-17.5); Lymphocytes # (A) 0.6 k/uL (1.0-4.8); Lymphocytes % (A) 11 %; MCH 31.8 pg (25.0-35.0); MCHC 34.7 g/dL (31.0-37.0); MCV 91.5 fL (80.0-100.0); Mean Platelet Volume 8.5; Monocytes # (A) 0.6 k/uL (0-1.0); Monocytes % (A) 12 %; Neutrophils # (A) 3.6 k/uL (1.3-7.7); Neutrophils % (A) 74 %; Platelet Count 381 k/uL (150-450); RBC 4.29 m/uL (4.30-5.90); RDW 12.9 % (11.5-15.5); WBC 4.9 k/uL (3.8-10.6)
[2021-02-06] MEDS: SUCRALFATE 1 GM TAB PO SCH ×2 (06:30→17:03)
--- NOTE | 2021-02-06 07:45 | XR ---
EXAMINATION TYPE: XR chest 1V portable DATE OF EXAM: 02/06/2021 Comparison: 02/05/2021 Clinical History: 56-year-old male covid Findings: Hardware limits are normal in size. Bullous emphysema at the right greater than left upper lungs. Int erstitial and patchy airspace opacities with a mid and lower lung predominance. Slight improvement in the right upper lobe. Impression: Continued COVID infiltrate superimposed on bullous emphysema. There may be slight improvement in aera tion in the right upper lobe.
--- NOTE | 2021-02-06 08:01 | P.PN ---
Subjective Progress Note Date: 02/05/21 HISTORY OF PRESENT ILLNESS: This is a 56-year-old male with a past medical history significant for hypertension and hypertensive cardiovascular disease, hyperlipidemia, history of tobacco use and dependence , presented to the emergency department at [facility] with increased coughing and increased shortness breath that started last and has been getting worse over the last few days, yesterday he was extremely short of breath and his oxygen saturation was in the low 70s, his tried to get him to the ER but eventually called 911 and the patient was brought into the ER at [facility] where he had a chest x-ray that did show evidence of bilateral patchy infiltrate suggestive of Covid pneumonia, his COVID-19 PCR was positive, patient was started on nonrebreather, and later on was seen in consultation by pulmonary medicine and he was placed on Airvo and was started on Bacitinib 4 mg po daily and the patient was admitted to the hospital for further evaluation and treatment. 02/05: A shunt is currently on AirVol. He has complained of feeling tired and complaining of gastric reflux. Protonix will be increased to 40 mg IV push twice daily. Patient is been seen by pulmonary medicine and started on Baricitinib, continued on dexamethasone 6 mg twice daily, Lovenox 40 mg daily. He has been afebrile, heart rate 92, blood pressure 137/86, pulse ox 97%. Re peat blood work reveals WBC 2.2, d-dimer 3.33, blood sugar 143. LDH 735, C- reactive protein 15.5. Chest x-ray reveals chronic emphysematous and pulmonary fibrotic changes with bilateral multifocal reticular nodular opacities consistent with COVID-19. Perhaps slight improvement in the right lung base. Ultrasound of bilateral lower extremities negative for DVT. REVIEW OF SYSTEMS: Constitutional: Denies fever, chills, night sweats. No weight change. positive for weakness, reports fatigue no lethargy. Reports daytime sleepiness. HEENT: No headache. No blurred vision or double vision, no loss of vision. No loss of Hearing, no ringing in the ears, no dizziness. No nasal drainage or c ongestion. No epistaxis. No sore throat. Lungs: positive for shortness of breath, positive for cough, positive for sputum production. positive for wheezing. Reports dyspnea with activity. Cardiovascular: No chest pain, no lower extremity edema. No palpitations. No paroxysmal nocturnal dyspnea. No orthopnea. No lightheadedness or dizziness. No syncopal episodes. Abdominal: Reports abdominal pain. No nausea, vomiting. No diarrhea. No constipation. No bloody or tarry stools reports loss of appetite. Reports gastric reflux. Genitourinary: No dysuria, increased frequency, urgency. No urinary retention. Musculoskeletal: positive for myalgias. positive for muscle weakness, no gait d ysfunction, no frequent falls. No back pain. No neck pain. Integumentary: No wounds, no lesions. No rash or pruritus. No unusual bruising. No change in hair or nails. Neurologic: No aphasia. No facial droop. No change in mentation. No head injury. No headache. No paralysis. No paresthesia. Psychiatric: No depression. No anxiety. No mood swings. Endocrine: No abnormal blood sugars. No weight change. PHYSICAL EXAMINATION: General: 56-year-old male laying down in bed in moderate respiratory distress HEENT: Head is atraumatic, normocephalic, pupils were equal round reactive to light and recommendation, extraocular muscle movement were intact, sclera nonicteric, conjunctivae were pale, mucous membranes of the mouth are somewhat dry. Neck: Supple, no JVP, normal carotid upstroke bilaterally, no lymphadenopathy. Chest: Decreased breath sounds at the bases, few rhonchi, moderate expiratory wheezes, no chest wall tenderness, positive for moderate intercostal retractions. Heart: First heart sound is normal, second heart sounds normal, tachycardic there is no gallop or murmur. Abdomen: Soft, nontender, nondistended, positive bowel sounds, no hepatosplenomegaly. Extremities: There is no edema no calf tenderness DP +2 bilaterally. Neurologic examination: Patient is awake alert and oriented X 3, cranial nerves II-12 appear grossly intact, muscle power were 5 out of 5 in upper extremities and 5 out of 5 in bilateral lower extremities, deep tendon reflexes normal bila terally. ASSESSMENT AND PLAN: 1. Acute hypoxemic respiratory failure due to bilateral patchy interstitial pneumonia due to COVID-19 pneumonia. Continue patient on Decadron 6 mg orally twice every day, continue patient on Vitamin C 1000 mg orally once every day, continue zinc 220 mg once every day, continue vitamin D 1000 units once every day, continue with Baricitinib 4 mg orally once every day for 14 doses continue oxygen support, transfer the patient to intensive care unit at the patient is not better. Pulmonary consultation appreciated. 2. Bilateral Covid pneumonia with ARDS. Continue with Airvo, continue dexamethasone 6 mg orally twice every day, continue with supportive care. 3. Mild non-anion gap metabolic acidosis. Continue IV fluid resuscitation, continue to monitor the patient very closely. 4. DVT prophylaxis. Continue Lovenox 40 mg subcutaneously every 24 hours 5. GERD and GI prophylaxis. Continue patient on Protonix 40 mg IV push every 12 hours as well as Carafate 1 g orally twice every day . 6. Patient is full code. Impression and plan of care have been directed as dictated by the signing physician. Viridiana Baker nurse practitioner acting as scribe for signing physician. Objective - Vital Signs Vital signs: Vital Signs Temp 99.5 F 02/05/21 04:50 Pulse 92 02/05/21 04:50 Resp 20 02/05/21 04:50 BP 138/102 02/05/21 04:50 Pulse Ox 97 02/05/21 04:50 Intake & Output 02/04/21 02/05/21 02/05/21 18:59 06:59 18:59 Weight 86.183 kg - Labs CBC & Chem 7: 02/06/21 05:38 02/06/21 05:38 Labs: Abnormal Lab Results - Last 24 Hours (Table) 02/04/21 02/04/21 02/04/21 Range/Units 10:25 10:27 10:27 Lymphocytes # 0.8 L (1.0-4.8) k/uL D-Dimer 1.84 H (<0.60) mg/L FEU ABG pCO2 28 L (35-45) mmHg ABG pO2 54 L* (83-108) mmHg ABG HCO3 17 L (21-25) mmol/L ABG Total CO2 18 L (19-24) mmol/L ABG O2 Saturation 87.6 L (94-97) % Carbon Dioxide (22-30) mmol/L AST (17-59) U/L Coronavirus (PCR) (Not Detectd) 02/04/21 02/04/21 02/05/21 Range/Units 10:27 10:27 06:10 Lymphocytes # (1.0-4.8) k/uL D-Dimer 3.33 H (<0.60) mg/L FEU ABG pCO2 (35-45) mmHg ABG pO2 (83-108) mmHg ABG HCO3 (21-25) mmol/L ABG Total CO2 (19-24) mmol/L ABG O2 Saturation (94-97) % Carbon Dioxide 19 L (22-30) mmol/L AST 81 H (17-59) U/L Coronavirus (PCR) Detected A (Not Detectd)
--- NOTE | 2021-02-06 08:31 | P.PN ---
Subjective Progress Note Date: 02/06/21 56-year-old male patient, known history of hypertension, coming in today because of generalized weakness, fatigue, and some increased shortness of breath and cough. His symptoms started approximately 4 days ago. He was quite hypoxic at the time of his arrival. The patient was was not having any chest pain or lightheadedness or dizziness. At that point, the patient was found to be afebrile. Initial pulse ox was 62% on room air oxygen. The patient was placed on oxygen and currently is on 15 L high flow and 100% nonrebreather facemask. The patient's pulse ox is currently up to 87%. He is resting comfortably in bed. His breathing is slightly labored. Nevertheless his able to communicate and answer questions appropriately. His is also is at the bedside. His respiratory rate is in the low 30s. Neurologically is intact. His blood work is showing a white cell count of 5.3 with hemoglobin of 15.2. D-dimer is at 1.8 with normal fibrillation profile. The blood gas showed a pH of 7.39 with a pCO2 of 28 and pO2 of 54 and this was done and FiO2 of 100%. BUN is at 19 with a creatinine of 0.8. Normal electrolytes. Serum bicarb is at 19. Overnight the testing was positive. ProBNP level was 222 and a troponin level is at 0.0 25. Inflammatory markers are still pending for now. He was started on Decadron. I'm going to start him also on Baricitinib. D-dimer is at 1.8. Elevation of 02/05/2021, the patient is being seen for a follow-up. The patient was seen in consultation yesterday. The patient was getting progressively more hypoxic and at the time of my evaluation in emergency the patient was 100% on a beta facemasks and 15 L of oxygen by nasal cannula. This morning, he is on Airvo at 60 L nasal cannula and the patient is on FiO2 of 90%. He is still wearing his 100% nonrebreather facemask. Chest x-ray showing diffuse bilateral pulmonary infiltrates, essentially unchanged compared to yesterday and this is consistent with a viral pneumonia. In terms of his pulse ox, is around 90%. Laying down comfortably in bed. Breathing is nonlabored at this point in time. D-dimer is at 3.33. The white cell count is at 2.2 with a hemoglobin of 14.4. He does have a component of anion gap metabolic acidosis with a gap of 18 and a serum bicarb of 17. Creatinine is at 0.7. LFTs are normal. LDH level is at 735. He is currently being treated with a combination of Decadron 6 mg twice a day and Baricitinib 4 mg by mouth daily. Doppler of the lower extremity has been negative for DVTs. Blood work shows ongoing lymphopenia, lymphocyte count is up to 0.34. Clinically, he looks a little bit lethargic yet arousable and follows commands and answers questions. He seems to be appropriate. Oral intake is quite diminished at this point in time as the patient is on Airvo in addition to 100% on a on nonrebreather facemask 02/06/2021, the patient has been transferred to the intensive care units. The patient is currently calm and comfortable. He is on 100% on a beta facemask and addition to high flow oxygen as well as Airvo at 60 L with an FiO2 of 90%. He was transferred to the intensive care unit yesterday for closer monitoring. His current pulse ox in the order of 86-91%. He is able to tolerate some diet. His chest x-ray from today is showing diffuse bilateral pulmonary infiltrates consistent with overnight he related pneumonia and infiltrate are essentially stable compared to yesterday without any significant interval change. No evidence of any pneumothorax. Lungs are adequately expanded for now. The patient is being treated with a combination of Decadron and Versed 7. He is receiving Decadron 6 mg twice a day and Baricitinib 4 mg by mouth daily per protocol. Doppler of the lower extremities have been essentially negative. On his blood work today, the patient has white cell count of 4.9 with a hemoglobin of 13.6, d-dimer is at 2.1, normal renal function, normal electrolytes, his LDH level is up to 1685 and his CRP level is down to 5.6. He is afebrile. Doppler of the lower extremities of been negative for DVT. The patient is hemodynamically stable. He is receiving IV fluids in the form of bicarb infusion at the rate of 75 mL an hour. This was added due to his underlying metabolic acidosis. His serum bicarb is 27 with gap of down to 6. As such, he will be placed on normal saline and the bicarb drip will be discontinued. Objective - Vital Signs Vital signs: Vital Signs Temp 98.2 F 02/06/21 04:00 Pulse 80 02/06/21 07:00 Resp 36 H 02/06/21 07:00 BP 134/85 02/06/21 07:00 Pulse Ox 91 L 02/06/21 07:00 Intake & Output 02/05/21 02/06/21 02/06/21 18:59 06:59 18:59 Intake Total 150 825 75 Output Total 0 350 0 Balance 150 475 75 Weight 83 kg Intake: Intake, IV Titration 150 825 75 Amount Dextrose 5% in Water 1, 150 825 75 000 ml @ 75 mls/hr IV . [id number] ELICIA with Sodium Bicarb (1 Meq/ml) 150 ml Rx#:[id number] Output: Urine 0 350 0 Other: Voiding Method Urinal Urinal # Voids 0 - Exam Gen. appearance the patient is in mild degree of respiratory distress. Is able to speak up. Sentences. Currently is on Airvo 60 L an FiO2 of 90% Head exam was generally normal. There was no scleral icterus or corneal arcus. Mucous membranes were moist. Neck was supple and without jugular venous distension, thyromegaly, or carotid bruits. Carotids were easily palpable bilaterally. There was no adenopathy. Lungs sounds are diminished in the patient's crackles in the mid and lower lung talamantes bilaterally Cardiac exam revealed the PMI to be normally situated and sized. The rhythm was regular and no extrasystoles were noted during several minutes of auscultation. The first and second heart sounds were normal and physiologic splitting of the second heart sound was noted. There were no murmurs, rubs, clicks, or gallops. Abdominal exam revealed normal bowel sounds. The abdomen was soft, non-tender, and without masses, organomegaly, or appreciable enlargement of the abdominal aorta. Examination of the extremities revealed easily palpable radial, femoral and pedal pulses. There was no cyanosis, clubbing or edema. Examination of the skin revealed no evidence of significant rashes, suspicious appearing nevi or other concerning lesions. Neurologically, the patient is awake and alert and the patient does not have any focal neurological deficit. Cranial nerves are essentially intact. - Labs CBC & Chem 7: 02/06/21 05:38 02/06/21 05:38 Labs: Abnormal Lab Results - Last 24 Hours (Table) 02/05/21 02/05/21 02/05/21 Range/Units 06:10 06:10 17:02 WBC 2.22 L (4.50-10.00) X 10*3/uL RBC (4.30-5.90) m/uL Neutrophils # 1.52 L (1.80-7.70) X 10*3/uL Lymphocytes # 0.34 L (0.90-5.00) X 10*3/uL Eosinophils # 0 L (0.04-0.35) X 10*3/uL D-Dimer (<0.60) mg/L FEU Sodium (137-145) mmol/L Carbon Dioxide 17.1 L (21.6-31.8) mmol/L Anion Gap 18.90 H (4.00-12.00) mmol/L BUN/Creatinine Ratio 20.29 H (12.00-20.00) Ratio Glucose 143 H (70-110) mg/dL POC Glucose (mg/dL) 202 H (75-99) mg/dL AST 61 H (14-35) U/L ALT (4-49) U/L Lactate Dehydrogenase 735 H (120-246) U/L C-Reactive Protein 15.50 H (0.00-0.80) mg/dL Total Protein (6.3-8.2) g/dL Albumin (3.5-5.0) g/dL 02/06/21 02/06/21 02/06/21 Range/Units 05:38 05:38 05:38 WBC (4.50-10.00) X 10*3/uL RBC 4.29 L (4.30-5.90) m/uL Neutrophils # (1.80-7.70) X 10*3/uL Lymphocytes # 0.6 L (0.90-5.00) X 10*3/uL Eosinophils # (0.04-0.35) X 10*3/uL D-Dimer 2.15 H (<0.60) mg/L FEU Sodium 136 L (137-145) mmol/L Carbon Dioxide (21.6-31.8) mmol/L Anion Gap (4.00-12.00) mmol/L BUN/Creatinine Ratio (12.00-20.00) Ratio Glucose 167 H (70-110) mg/dL POC Glucose (mg/dL) (75-99) mg/dL AST (14-35) U/L ALT 53 H (4-49) U/L Lactate Dehydrogenase 1685 H (120-246) U/L C-Reactive Protein 5.6 H (0.00-0.80) mg/dL Total Protein 6.1 L (6.3-8.2) g/dL Albumin 3.4 L (3.5-5.0) g/dL Assessment and Plan Plan: 1 acute COVID 19 related pneumonia with secondary respiratory failure. Currently on 100% nonrebreather facemask in addition to high flow oxygen at 15 L. Breathing remains mildly labored. . Chest x-ray showing diffuse bilateral pulmonary infiltrates consistent with COVID 19 related pneumonia. This is unvaccinated individual. Inflammatory markers are still pending for now. D- dimer is relatively low. She has further decline in the story status. The patient is currently on Airvo at 60 L with an FiO2 of 90% in addition to 100% nonrebreather facemask. He is on a combination of Decadron and Baricitinib. LDH is nonelevated. D-dimer is mildly elevated. Chest x-ray findings and ess entially stable. No significant interval change compared to yesterday. The patient is currently in the intensive care unit for further monitoring. The patient remains on a combination of Decadron and Baricitinib. 2 shortness of breath secondary to above 3 mild non-anion gap metabolic acidosis, improved with a bicarb infusion 4 hypertension Plan Continue Airvo 60 L an FiO2 of 90% and combination with a nonrebreather facemask Continue Decadron. The dose of 6 mg every 12 hours Start the patient on Baricitinib per protocol Lovenox 40 mg subcu for DVT prophylaxis Multivitamin cocktail for COVID 19 related infections We'll continue to follow. We'll make further recommendations based on his progress. Stop the bicarb infusion switch this patient to normal saline at the rate of 75 mL an hour Keep the patient intensive care unit We'll continue to follow
[2021-02-06] MEDS: SODIUM CHLORIDE 0.9% 1,000 ML IV SCH ×2 (08:37→20:27)
[2021-02-06] MEDS: ENOXAPARIN 40 MG/0.4 ML SYRINGE SQ SCH (08:37)
[2021-02-06] MEDS: PANTOPRAZOLE 40 MG/10 ML VIAL IVP SCH ×2 (08:37→20:27)
[2021-02-06] MEDS: MULTIVITAMINS, THERA 1 EACH TAB PO SCH (08:37)
[2021-02-06] MEDS: ASCORBIC ACID 500 MG TAB PO SCH (08:38)
[2021-02-06] MEDS: CHOLECALCIFEROL 25 MCG (1000 IU) TABLET PO SCH (08:38)
[2021-02-06] MEDS: dexAMETHasone 2 MG TAB PO SCH ×2 (08:39→20:27)
[2021-02-06] MEDS: ZINC SULFATE 220 MG CAP PO SCH (08:39)
--- NOTE | 2021-02-06 14:25 | P.PN ---
Subjective Progress Note Date: 02/06/21 HISTORY OF PRESENT ILLNESS: This is a 56-year-old male with a past medical history significant for hypertension and hypertensive cardiovascular disease, hyperlipidemia, history of tobacco use and dependence , presented to the emergency department at [facility] with increased coughing and increased shortness breath that started last and has been getting worse over the last few days, yesterday he was extremely short of breath and his oxygen saturation was in the low 70s, his tried to get him to the ER but eventually called 911 and the patient was brought into the ER at [facility] where he had a chest x-ray that did show evidence of bilateral patchy infiltrate suggestive of Covid pneumonia, his COVID-19 PCR was positive, patient was started on nonrebreather, and later on was seen in consultation by pulmonary medicine and he was placed on Airvo and was started on Bacitinib 4 mg po daily and the patient was admitted to the hospital for further evaluation and treatment. 02/05: A shunt is currently on AirVol. He has complained of feeling tired and complaining of gastric reflux. Protonix will be increased to 40 mg IV push twice daily. Patient is been seen by pulmonary medicine and started on Baricitinib, continued on dexamethasone 6 mg twice daily, Lovenox 40 mg daily. He has been afebrile, heart rate 92, blood pressure 137/86, pulse ox 97%. Re peat blood work reveals WBC 2.2, d-dimer 3.33, blood sugar 143. LDH 735, C- reactive protein 15.5. Chest x-ray reveals chronic emphysematous and pulmonary fibrotic changes with bilateral multifocal reticular nodular opacities consistent with COVID-19. Perhaps slight improvement in the right lung base. Ultrasound of bilateral lower extremities negative for DVT. 02/06: Last evening, patient was transferred into the intensive care unit as he was on 15 L nonrebreather was transitioned over to AirVo 60 L 90% with nonrebreather on top. Pulse ox is currently running 84-87%. He has been afebrile, heart rate in the 80s and 90s, respiratory rate 29, blood pressure 131/82. Patient is requesting Cepacol lozenges and nasal spray added. Ensure 3 times daily also added, patient has decreased appetite and limited oral intake. Repeat blood work reveals WBC 4.9, hemoglobin 13.6. Platelet count 381. D- dimer 2.15. LDH 1685. C-reactive protein 5.6. Repeat chest x-ray revealed continue his Covid infiltrate superimposed on bollous emphysema. Slight improvement in aeration in the right upper lobe. Patient is continued on dexamethasone, Lovenox, vitamin supplements and Baricitinib. REVIEW OF SYSTEMS: Constitutional: Denies fever, chills, night sweats. No weight change. positive for weakness, reports fatigue no lethargy. Reports daytime sleepiness. HEENT: No headache. No blurred vision or double vision, no loss of vision. No loss of Hearing, no ringing in the ears, no dizziness. No nasal drainage or congestion. No epistaxis. Reports sore throat. Lungs: positive for shortness of breath, positive for cough, positive for sputum production. positive for wheezing. Reports dyspnea with activity. Cardiovascular: No chest pain, no lower extremity edema. No palpitations. No paroxysmal nocturnal dyspnea. No orthopnea. No lightheadedness or dizziness. No syncopal episodes. Abdominal: Reports abdominal pain. No nausea, vomiting. No diarrhea. No constipation. No bloody or tarry stools reports loss of appetite. Reports gastric reflux. Genitourinary: No dysuria, increased frequency, urgency. No urinary retention. Musculoskeletal: positive for myalgias. positive for muscle weakness, no gait dysfunction, no frequent falls. No back pain. No neck pain. Integumentary: No wounds, no lesions. No rash or pruritus. No unusual bruising. No change in hair or nails. Neurologic: No aphasia. No facial droop. No change in mentation. No head injury. No headache. No paralysis. No paresthesia. Psychiatric: No depression. No anxiety. No mood swings. Endocrine: No abnormal blood sugars. No weight change. PHYSICAL EXAMINATION: General: 56-year-old male laying down in bed in moderate respiratory distress HEENT: Head is atraumatic, normocephalic, pupils were equal round reactive to light and recommendation, extraocular muscle movement were intact, sclera nonicteric, conjunctivae were pale, mucous membranes of the mouth are dry. Neck: Supple, no JVP, normal carotid upstroke bilaterally, no lymphadenopathy. Chest: Decreased breath sounds at the bases, few rhonchi, moderate expiratory wheezes, no chest wall tenderness, positive for moderate intercostal retractions. Heart: First heart sound is normal, second heart sounds normal, tachycardic th ere is no gallop or murmur. Abdomen: Soft, nontender, nondistended, positive bowel sounds, no hepato splenomegaly. Extremities: There is no edema no calf tenderness DP +2 bilaterally. Neurologic examination: Patient is awake alert and oriented X 3, cranial nerves II-12 appear grossly intact, muscle power were 5 out of 5 in upper extremities and 5 out of 5 in bilateral lower extremities, deep tendon reflexes normal bilaterally. ASSESSMENT AND PLAN: 1. Acute hypoxemic respiratory failure due to bilateral patchy interstitial pneumonia due to COVID-19 pneumonia. Continue patient on Decadron 6 mg orally twice every day, continue patient on Vitamin C 1000 mg orally once every day, continue zinc 220 mg once every day, continue vitamin D 1000 units once every day, continue with Baricitinib 4 mg orally once every day for 14 doses continue oxygen support, transfer the patient to intensive care unit at the patient is not better. Pulmonary consultation appreciated. 2. Bilateral Covid pneumonia with ARDS. Continue with Airvo, continue dexamethasone 6 mg orally twice every day, continue with supportive care. 3. Mild non-anion gap metabolic acidosis. Status post bicarb infusion. 4. DVT prophylaxis. Continue Lovenox 40 mg subcutaneously every 24 hours 5. GERD and GI prophylaxis. Continue patient on Protonix 40 mg IV push every 12 hours as well as Carafate 1 g orally twice every day . 6. Patient is full code. Impression and plan of care have been directed as dictated by the signing physician. Viridiana Baker nurse practitioner acting as scribe for signing physician. Objective - Vital Signs Vital signs: Vital Signs Temp 98.2 F 02/06/21 04:00 Pulse 80 02/06/21 07:00 Resp 36 H 02/06/21 07:00 BP 134/85 02/06/21 07:00 Pulse Ox 91 L 02/06/21 07:00 Intake & Output 02/05/21 02/06/21 02/06/21 18:59 06:59 18:59 Intake Total 150 825 75 Output Total 0 350 0 Balance 150 475 75 Weight 83 kg Intake: Intake, IV Titration 150 825 75 Amount Dextrose 5% in Water 1, 150 825 75 000 ml @ 75 mls/hr IV . [id number] ELICIA with Sodium Bicarb (1 Meq/ml) 150 ml Rx#:[id number] Output: Urine 0 350 0 Other: Voiding Method Urinal Urinal # Voids 0 - Labs CBC & Chem 7: 02/06/21 05:38 02/06/21 05:38 Labs: Abnormal Lab Results - Last 24 Hours (Table) 02/05/21 02/05/21 02/05/21 Range/Units 06:10 06:10 17:02 WBC 2.22 L (4.50-10.00) X 10*3/uL RBC (4.30-5.90) m/uL Neutrophils # 1.52 L (1.80-7.70) X 10*3/uL Lymphocytes # 0.34 L (0.90-5.00) X 10*3/uL Eosinophils # 0 L (0.04-0.35) X 10*3/uL D-Dimer (<0.60) mg/L FEU Sodium (137-145) mmol/L Carbon Dioxide 17.1 L (21.6-31.8) mmol/L Anion Gap 18.90 H (4.00-12.00) mmol/L BUN/Creatinine Ratio 20.29 H (12.00-20.00) Ratio Glucose 143 H (70-110) mg/dL POC Glucose (mg/dL) 202 H (75-99) mg/dL AST 61 H (14-35) U/L ALT (4-49) U/L Lactate Dehydrogenase 735 H (120-246) U/L C-Reactive Protein 15.50 H (0.00-0.80) mg/dL Total Protein (6.3-8.2) g/dL Albumin (3.5-5.0) g/dL 02/06/21 02/06/21 02/06/21 Range/Units 05:38 05:38 05:38 WBC (4.50-10.00) X 10*3/uL RBC 4.29 L (4.30-5.90) m/uL Neutrophils # (1.80-7.70) X 10*3/uL Lymphocytes # 0.6 L (0.90-5.00) X 10*3/uL Eosinophils # (0.04-0.35) X 10*3/uL D-Dimer 2.15 H (<0.60) mg/L FEU Sodium 136 L (137-145) mmol/L Carbon Dioxide (21.6-31.8) mmol/L Anion Gap (4.00-12.00) mmol/L BUN/Creatinine Ratio (12.00-20.00) Ratio Glucose 167 H (70-110) mg/dL POC Glucose (mg/dL) (75-99) mg/dL AST (14-35) U/L ALT 53 H (4-49) U/L Lactate Dehydrogenase 1685 H (120-246) U/L C-Reactive Protein 5.6 H (0.00-0.80) mg/dL Total Protein 6.1 L (6.3-8.2) g/dL Albumin 3.4 L (3.5-5.0) g/dL
[2021-02-06] MEDS: BENZOCAINE/MENTHOL LOZENG 1 EACH LOZENGE MUCOUS MEM PRN (15:03)
[2021-02-06] MEDS: BARICITINIB 2 MG TABLET PO SCH (15:22)
[2021-02-07 05:20] LABS: Basophils % (A) 0 %; Eosinophils % (A) 0 %; HCT 37.8 % (39.0-53.0); HGB 13.3 gm/dL (13.0-17.5); Lymphocytes # (A) 0.4 k/uL (1.0-4.8); Lymphocytes % (A) 3 %; MCH 32.1 pg (25.0-35.0); MCHC 35.2 g/dL (31.0-37.0); MCV 91.1 fL (80.0-100.0); Mean Platelet Volume 7.8; Monocytes # (A) 0.9 k/uL (0-1.0); Monocytes % (A) 9 %; Neutrophils # (A) 8.6 k/uL (1.3-7.7); Neutrophils % (A) 86 %; Platelet Count 434 k/uL (150-450); RBC 4.15 m/uL (4.30-5.90); RDW 13.6 % (11.5-15.5); WBC 10.1 k/uL (3.8-10.6)
[2021-02-07 06:13] LABS: ALT 47 U/L (4-49); AST 39 U/L (17-59); African American GFR (CKD) >90 (>60 ml/min/1.73 sqM); Albumin 3.2 g/dL (3.5-5.0); Alkaline Phosphatase 86 U/L (38-126); Anion Gap 7 mmol/L; Blood Urea Nitrogen 21 mg/dL (9-20); C Reactive Protein 3.3 mg/dL (<1.0); Calcium 8.8 mg/dL (8.4-10.2); Carbon Dioxide 26 mmol/L (22-30); Chloride 104 mmol/L (98-107); Glucose 128 mg/dL (74-99); LDH 1571 U/L (313-618); Non-African American GFR(CKD) >90 (>60 ml/min/1.73 sqM); Potassium 4.2 mmol/L (3.5-5.1); Sodium 137 mmol/L (137-145); Total Bilirubin 0.4 mg/dL (0.2-1.3); Total Protein 5.7 g/dL (6.3-8.2)
[2021-02-07] MEDS: SUCRALFATE 1 GM TAB PO SCH ×2 (06:46→16:29)
--- NOTE | 2021-02-07 08:25 | P.PN ---
Subjective Progress Note Date: 02/07/21 56-year-old male patient, known history of hypertension, coming in today because of generalized weakness, fatigue, and some increased shortness of breath and cough. His symptoms started approximately 4 days ago. He was quite hypoxic at the time of his arrival. The patient was was not having any chest pain or lightheadedness or dizziness. At that point, the patient was found to be afebrile. Initial pulse ox was 62% on room air oxygen. The patient was placed on oxygen and currently is on 15 L high flow and 100% nonrebreather facemask. The patient's pulse ox is currently up to 87%. He is resting comfortably in bed. His breathing is slightly labored. Nevertheless his able to communicate and answer questions appropriately. His is also is at the bedside. His respiratory rate is in the low 30s. Neurologically is intact. His blood work is showing a white cell count of 5.3 with hemoglobin of 15.2. D-dimer is at 1.8 with normal fibrillation profile. The blood gas showed a pH of 7.39 with a pCO2 of 28 and pO2 of 54 and this was done and FiO2 of 100%. BUN is at 19 with a creatinine of 0.8. Normal electrolytes. Serum bicarb is at 19. Overnight the testing was positive. ProBNP level was 222 and a troponin level is at 0.0 25. Inflammatory markers are still pending for now. He was started on Decadron. I'm going to start him also on Baricitinib. D-dimer is at 1.8. Elevation of 02/05/2021, the patient is being seen for a follow-up. The patient was seen in consultation yesterday. The patient was getting progressively more hypoxic and at the time of my evaluation in emergency the patient was 100% on a beta facemasks and 15 L of oxygen by nasal cannula. This morning, he is on Airvo at 60 L nasal cannula and the patient is on FiO2 of 90%. He is still wearing his 100% nonrebreather facemask. Chest x-ray showing diffuse bilateral pulmonary infiltrates, essentially unchanged compared to yesterday and this is consistent with a viral pneumonia. In terms of his pulse ox, is around 90%. Laying down comfortably in bed. Breathing is nonlabored at this point in time. D-dimer is at 3.33. The white cell count is at 2.2 with a hemoglobin of 14.4. He does have a component of anion gap metabolic acidosis with a gap of 18 and a serum bicarb of 17. Creatinine is at 0.7. LFTs are normal. LDH level is at 735. He is currently being treated with a combination of Decadron 6 mg twice a day and Baricitinib 4 mg by mouth daily. Doppler of the lower extremity has been negative for DVTs. Blood work shows ongoing lymphopenia, lymphocyte count is up to 0.34. Clinically, he looks a little bit lethargic yet arousable and follows commands and answers questions. He seems to be appropriate. Oral intake is quite diminished at this point in time as the patient is on Airvo in addition to 100% on a on nonrebreather facemask 02/06/2021, the patient has been transferred to the intensive care units. The patient is currently calm and comfortable. He is on 100% on a beta facemask and addition to high flow oxygen as well as Airvo at 60 L with an FiO2 of 90%. He was transferred to the intensive care unit yesterday for closer monitoring. His current pulse ox in the order of 86-91%. He is able to tolerate some diet. His chest x-ray from today is showing diffuse bilateral pulmonary infiltrates consistent with overnight he related pneumonia and infiltrate are essentially stable compared to yesterday without any significant interval change. No evidence of any pneumothorax. Lungs are adequately expanded for now. The patient is being treated with a combination of Decadron and Versed 7. He is receiving Decadron 6 mg twice a day and Baricitinib 4 mg by mouth daily per protocol. Doppler of the lower extremities have been essentially negative. On his blood work today, the patient has white cell count of 4.9 with a hemoglobin of 13.6, d-dimer is at 2.1, normal renal function, normal electrolytes, his LDH level is up to 1685 and his CRP level is down to 5.6. He is afebrile. Doppler of the lower extremities of been negative for DVT. The patient is hemodynamically stable. He is receiving IV fluids in the form of bicarb infusion at the rate of 75 mL an hour. This was added due to his underlying metabolic acidosis. His serum bicarb is 27 with gap of down to 6. As such, he will be placed on normal saline and the bicarb drip will be discontinued. 02/07/2021, the patient is essentially the same as yesterday. He remains on 100% fullface mask nonrebreather addition to a high flow Airvo system with a few of 60 L and FiO2 of 90%. He remains on a combination of Decadron and Baricitinib per protocol. Doppler of the lower extremity is a been negative. He is on Lovenox 40 mg subcu on a daily basis. In terms of his inflammatory mar kers, his LDH level is down to 1571, improved compared to yesterday and his CRP level is down to 3.3. Procal level was at 0.1. Chest x-ray is from yesterday showed covid 19 related pneumonia with some slight improvement in aeration in the right upper lobe. He is awake and alert and communicating. Blood work from today shows a white cell count of 10 with a hemoglobin of 13, d-dimer is up to 5.02, BUN is at 21 with a creatinine of 0.7. Obviously, his breathing is still labored. He feels that he is going to cough and his lungs are irritated. Nevertheless, is not bringing up any significant amount of sputum for the time being. No altered mentation. No diarrhea. No other complaints otherwise. Objective - Vital Signs Vital signs: Vital Signs Temp 97.2 F L 02/07/21 04:00 Pulse 69 02/07/21 07:00 Resp 15 02/07/21 07:00 BP 124/79 02/07/21 07:00 Pulse Ox 93 L 02/07/21 07:00 Intake & Output 02/06/21 02/07/21 02/07/21 18:59 06:59 18:59 Intake Total 1350 975 Output Total 650 800 Balance 700 175 Weight 83 kg Intake: IV 825 975 Sodium Chloride 0.9% 1, 825 975 000 ml @ 75 mls/hr IV . [id number] ELICIA Rx#:[id number] Intake, IV Titration 75 Amount Dextrose 5% in Water 1, 75 000 ml @ 75 mls/hr IV . [id number] ELICIA with Sodium Bicarb (1 Meq/ml) 150 ml Rx#:[id number] Oral 450 Output: Urine 650 800 Other: Voiding Method Urinal Urinal # Voids 1 # Bowel Movements 1 - Exam Gen. appearance the patient is in mild degree of respiratory distress. Is able to speak up. Sentences. Currently is on Airvo 60 L an FiO2 of 90%, and I think the patient is also on 100% nonrebreather facemask addition to the Airvo system. Head exam was generally normal. There was no scleral icterus or corneal arcus. Mucous membranes were moist. Neck was supple and without jugular venous distension, thyromegaly, or carotid bruits. Carotids were easily palpable bilaterally. There was no adenopathy. Lungs sounds are diminished in the patient's crackles in the mid and lower lung talamantes bilaterally Cardiac exam revealed the PMI to be normally situated and sized. The rhythm was regular and no extrasystoles were noted during several minutes of auscultation. The first and second heart sounds were normal and physiologic splitting of the second heart sound was noted. There were no murmurs, rubs, clicks, or gallops. Abdominal exam revealed normal bowel sounds. The abdomen was soft, non-tender, and without masses, organomegaly, or appreciable enlargement of the abdominal aorta. Examination of the extremities revealed easily palpable radial, femoral and p edal pulses. There was no cyanosis, clubbing or edema. Examination of the skin revealed no evidence of significant rashes, suspicious appearing nevi or other concerning lesions. Neurologically, the patient is awake and alert and the patient does not have any focal neurological deficit. Cranial nerves are essentially intact. - Labs CBC & Chem 7: 02/07/21 04:56 02/07/21 04:56 Labs: Abnormal Lab Results - Last 24 Hours (Table) 02/05/21 02/07/21 02/07/21 Range/Units 06:10 04:56 04:56 RBC 4.15 L (4.30-5.90) m/uL Hct 37.8 L (39.0-53.0) % Neutrophils # 8.6 H (1.3-7.7) k/uL Lymphocytes # 0.4 L (1.0-4.8) k/uL D-Dimer 5.02 H (<0.60) mg/L FEU BUN (9-20) mg/dL Glucose (74-99) mg/dL Lactate Dehydrogenase (313-618) U/L C-Reactive Protein (<1.0) mg/dL Total Protein (6.3-8.2) g/dL Albumin (3.5-5.0) g/dL Procalcitonin 0.10 H (0.02-0.09) ng/mL 02/07/21 Range/Units 04:56 RBC (4.30-5.90) m/uL Hct (39.0-53.0) % Neutrophils # (1.3-7.7) k/uL Lymphocytes # (1.0-4.8) k/uL D-Dimer (<0.60) mg/L FEU BUN 21 H (9-20) mg/dL Glucose 128 H (74-99) mg/dL Lactate Dehydrogenase 1571 H (313-618) U/L C-Reactive Protein 3.3 H (<1.0) mg/dL Total Protein 5.7 L (6.3-8.2) g/dL Albumin 3.2 L (3.5-5.0) g/dL Procalcitonin (0.02-0.09) ng/mL Assessment and Plan Plan: 1 acute COVID 19 related pneumonia with secondary respiratory failure. Curren tly on 100% nonrebreather facemask in addition to high flow oxygen at 15 L. Breathing remains mildly labored. . Chest x-ray showing diffuse bilateral pulmonary infiltrates consistent with COVID 19 related pneumonia. This is unvaccinated individual. . The patient is currently on Airvo at 60 L with an FiO2 of 90% in addition to 100% nonrebreather facemask. He is on a combination of Decadron and Baricitinib. LDH is improved compared to yesterday. CRP is lower. D-dimer slightly higher. No chest x-ray for today. No worsening in his oxygenation. He seems to be comfortable. Breathing is labored and the patient gets short of breath with activity even when he is trying to move within his bed. Should be able to be moved on a recliner 2 shortness of breath secondary to above 3 mild non-anion gap metabolic acidosis, improved with a bicarb infusion covered and the patient is currently on a normal saline infusion 4 hypertension Plan Continue Airvo 60 L an FiO2 of 90% and combination with a nonrebreather facemask Continue Decadron 6 mg every 12 hours Start the patient on Baricitinib per protocol Lovenox 40 mg subcu for DVT prophylaxis Multivitamin cocktail for COVID 19 related infections We'll continue to follow. We'll make further recommendations based on his progress. normal saline at the rate of 75 mL an hour Keep the patient intensive care unit We'll continue to follow
[2021-02-07] MEDS: ENOXAPARIN 40 MG/0.4 ML SYRINGE SQ SCH (10:26)
[2021-02-07] MEDS: PANTOPRAZOLE 40 MG/10 ML VIAL IVP SCH ×2 (10:26→19:48)
[2021-02-07] MEDS: SODIUM CHLORIDE 0.9% 1,000 ML IV SCH (10:26)
[2021-02-07] MEDS: CHOLECALCIFEROL 25 MCG (1000 IU) TABLET PO SCH (10:27)
[2021-02-07] MEDS: dexAMETHasone 2 MG TAB PO SCH ×2 (10:27→19:48)
[2021-02-07] MEDS: ASCORBIC ACID 500 MG TAB PO SCH (10:28)
[2021-02-07] MEDS: ZINC SULFATE 220 MG CAP PO SCH (10:28)
[2021-02-07] MEDS: MULTIVITAMINS, THERA 1 EACH TAB PO SCH (10:28)
--- NOTE | 2021-02-07 14:04 | P.PN ---
Subjective Progress Note Date: 02/07/21 HISTORY OF PRESENT ILLNESS: This is a 56-year-old male with a past medical history significant for hypertension and hypertensive cardiovascular disease, hyperlipidemia, history of tobacco use and dependence, presented to the emergency department at [facility] with increased coughing and increased shortness breath that started last and has been getting worse over the last few days, yesterday he was extremely short of breath and his oxygen saturation was in the low 70s, his tried to get him to the ER but eventually called 911 and the patient was brought into the ER at [facility] where he had a chest x-ray that did show evidence of bilateral patchy infiltrate suggestive of Covid pneumonia, his COVID-19 PCR was positive, patient was started on nonrebreather, and later on was seen in consultation by pulmonary medicine and he was placed on Airvo and was started on Bacitinib 4 mg po daily and the patient was admitted to the hospital for further evaluation and treatment. 02/05: A shunt is currently on AirVol. He has complained of feeling tired and complaining of gastric reflux. Protonix will be increased to 40 mg IV push twice daily. Patient is been seen by pulmonary medicine and started on Baricitinib, continued on dexamethasone 6 mg twice daily, Lovenox 40 mg daily. He has been afebrile, heart rate 92, blood pressure 137/86, pulse ox 97%. Rep eat blood work reveals WBC 2.2, d-dimer 3.33, blood sugar 143. LDH 735, C- reactive protein 15.5. Chest x-ray reveals chronic emphysematous and pulmonary fibrotic changes with bilateral multifocal reticular nodular opacities consistent with COVID-19. Perhaps slight improvement in the right lung base. Ultrasound of bilateral lower extremities negative for DVT. 02/06: Last evening, patient was transferred into the intensive care unit as he was on 15 L nonrebreather was transitioned over to AirVo 60 L 90% with nonrebreather on top. Pulse ox is currently running 84-87%. He has been afebrile, heart rate in the 80s and 90s, respiratory rate 29, blood pressure 131/82. Patient is requesting Cepacol lozenges and nasal spray added. Ensure 3 times daily also added, patient has decreased appetite and limited oral intake. Repeat blood work reveals WBC 4.9, hemoglobin 13.6. Platelet count 381. D- dimer 2.15. LDH 1685. C-reactive protein 5.6. Repeat chest x-ray revealed continue his Covid infiltrate superimposed on bollous emphysema. Slight improvement in aeration in the right upper lobe. Patient is continued on dexamethasone, Lovenox, vitamin supplements and Baricitinib. 02/07:patient remains in the intensive care unit. He is on nonrebreather mask as well as high flow AirVo with O2 at 60 L, FiO2 90%. patient remains afebrile, heart rate in the 70s, respiratory rate 26, blood pressure 127/79, pulse ox 86- 88%, pulse ox drops in the low 80s when patient ate's. He is on ensure 3 times daily. Patient is complaining of some cough and back pain when he coughs. He is less fatigued today. REVIEW OF SYSTEMS: Constitutional: Denies fever, chills, night sweats. No weight change. positive for weakness, reports fatigue no lethargy. Reports daytime sleepiness. HEENT: No headache. No blurred vision or double vision, no loss of vision. No loss of Hearing, no ringing in the ears, no dizziness. No nasal drainage or congestion. No epistaxis. Reports sore throat. Lungs: positive for shortness of breath, positive for cough, positive for sputum production. positive for wheezing. Reports dyspnea with activity. Cardiovascular: No chest pain, no lower extremity edema. No palpitations. No paroxysmal nocturnal dyspnea. No orthopnea. No lightheadedness or dizziness. No syncopal episodes. Abdominal: Reports abdominal pain. No nausea, vomiting. No diarrhea. No constipation. No bloody or tarry stools reports loss of appetite. Reports gastric reflux. Genitourinary: No dysuria, increased frequency, urgency. No urinary retention. Musculoskeletal: positive for myalgias. positive for muscle weakness, no gait dysfunction, no frequent falls. No back pain. No neck pain. Integumentary: No wounds, no lesions. No rash or pruritus. No unusual bruising. No change in hair or nails. Neurologic: No aphasia. No facial droop. No change in mentation. No head injury. No headache. No paralysis. No paresthesia. Psychiatric: No depression. No anxiety. No mood swings. Endocrine: No abnormal blood sugars. No weight change. PHYSICAL EXAMINATION: General: 56-year-old male laying down in bed in moderate respiratory distress HEENT: Head is atraumatic, normocephalic, pupils were equal round reactive to light and recommendation, extraocular muscle movement were intact, sclera nonicteric, conjunctivae were pale, mucous membranes of the mouth are dry. Neck: Supple, no JVP, normal carotid upstroke bilaterally, no lymphadenopathy. Chest: Decreased breath sounds at the bases, few rhonchi, moderate expiratory wheezes, no chest wall tenderness, positive for moderate intercostal retractions. Heart: First heart sound is normal, second heart sounds normal, tachycardic there is no gallop or murmur. Abdomen: Soft, nontender, nondistended, positive bowel sounds, no hepatosplenomegaly. Extremities: There is no edema no calf tenderness DP +2 bilaterally. Neurologic examination: Patient is awake alert and oriented X 3, cranial nerves II-12 appear grossly intact, muscle power were 5 out of 5 in upper extremities and 5 out of 5 in bilateral lower extremities, deep tendon reflexes normal bilaterally. ASSESSMENT AND PLAN: 1. Acute hypoxemic respiratory failure due to bilateral patchy interstitial pneumonia due to COVID-19 pneumonia. Continue patient on Decadron 6 mg orally twice every day, continue patient on Vitamin C 1000 mg orally once every day, continue zinc 220 mg once every day, continue vitamin D 1000 units once every day, continue with Baricitinib 4 mg orally once every day for 14 doses continue oxygen support currently on 100% nonrebreather and AirVo at 15 L, continue care in the intensive care unit. Pulmonary consultation appreciated. 2. Bilateral Covid pneumonia with ARDS. Continue with Airvo, continue dexamethasone 6 mg orally twice every day, continue with supportive care. 3. Mild non-anion gap metabolic acidosis. Status post bicarb infusion. 4. Moderate 14-calorie malnutrition secondary to decreased appetite and difficulty eating with oxygen mask. Ensure 3 times daily. 5. DVT prophylaxis. Continue Lovenox 40 mg subcutaneously every 24 hours 6. GERD and GI prophylaxis. Continue patient on Protonix 40 mg IV push every 12 hours as well as Carafate 1 g orally twice every day . 7. Patient is full code. Impression and plan of care have been directed as dictated by the signing physician. Viridiana Baker nurse practitioner acting as scribe for signing physician. Objective - Vital Signs Vital signs: Vital Signs Temp 98.1 F 02/07/21 12:00 Pulse 70 02/07/21 12:00 Resp 26 H 02/07/21 12:00 BP 127/79 02/07/21 12:00 Pulse Ox 86 L 02/07/21 12:00 Intake & Output 02/06/21 02/07/21 02/07/21 18:59 06:59 18:59 Intake Total 1350 975 300 Output Total 650 800 250 Balance 700 175 50 Weight 83 kg Intake: IV 825 975 300 Sodium Chloride 0.9% 1, 825 975 300 000 ml @ 75 mls/hr IV . [id number] ELICIA Rx#:[id number] Intake, IV Titration 75 Amount Dextrose 5% in Water 1, 75 000 ml @ 75 mls/hr IV . [id number] ELICIA with Sodium Bicarb (1 Meq/ml) 150 ml Rx#:[id number] Oral 450 Output: Urine 650 800 250 Other: Voiding Method Urinal Urinal Urinal # Voids 1 # Bowel Movements 1 - Labs CBC & Chem 7: 02/07/21 04:56 02/07/21 04:56 Labs: Abnormal Lab Results - Last 24 Hours (Table) 02/07/21 02/07/21 02/07/21 Range/Units 04:56 04:56 04:56 RBC 4.15 L (4.30-5.90) m/uL Hct 37.8 L (39.0-53.0) % Neutrophils # 8.6 H (1.3-7.7) k/uL Lymphocytes # 0.4 L (1.0-4.8) k/uL D-Dimer 5.02 H (<0.60) mg/L FEU BUN 21 H (9-20) mg/dL Glucose 128 H (74-99) mg/dL Lactate Dehydrogenase 1571 H (313-618) U/L C-Reactive Protein 3.3 H (<1.0) mg/dL Total Protein 5.7 L (6.3-8.2) g/dL Albumin 3.2 L (3.5-5.0) g/dL
[2021-02-07] MEDS: BARICITINIB 2 MG TABLET PO SCH (16:29)
[2021-02-08] MEDS: BENZOCAINE/MENTHOL LOZENG 1 EACH LOZENGE MUCOUS MEM PRN (02:43)
[2021-02-08] MEDS: SODIUM CHLORIDE 0.9% 1,000 ML IV SCH ×2 (05:30→09:26)
[2021-02-08 06:35] LABS: Basophils % (A) 0 %; Eosinophils % (A) 0 %; HCT 37.1 % (39.0-53.0); HGB 12.5 gm/dL (13.0-17.5); Lymphocytes # (A) 0.4 k/uL (1.0-4.8); Lymphocytes % (A) 4 %; MCHC 33.7 g/dL (31.0-37.0); MCV 91.9 fL (80.0-100.0); Mean Platelet Volume 8.4; Monocytes # (A) 0.8 k/uL (0-1.0); Monocytes % (A) 8 %; Neutrophils # (A) 8.9 k/uL (1.3-7.7); Neutrophils % (A) 87 %; Platelet Count 348 k/uL (150-450); RBC 4.04 m/uL (4.30-5.90); RDW 12.8 % (11.5-15.5); WBC 10.3 k/uL (3.8-10.6)
[2021-02-08 06:53] LABS: ALT 43 U/L (4-49); AST 31 U/L (17-59); African American GFR (CKD) >90 (>60 ml/min/1.73 sqM); Albumin 3.1 g/dL (3.5-5.0); Alkaline Phosphatase 103 U/L (38-126); Anion Gap 5 mmol/L; Blood Urea Nitrogen 20 mg/dL (9-20); Calcium 8.9 mg/dL (8.4-10.2); Carbon Dioxide 27 mmol/L (22-30); Chloride 105 mmol/L (98-107); Glucose 129 mg/dL (74-99); LDH 1747 U/L (313-618); Non-African American GFR(CKD) >90 (>60 ml/min/1.73 sqM); Potassium 4.4 mmol/L (3.5-5.1); Sodium 137 mmol/L (137-145); Total Bilirubin 0.5 mg/dL (0.2-1.3); Total Protein 5.7 g/dL (6.3-8.2)
[2021-02-08] MEDS: SUCRALFATE 1 GM TAB PO SCH ×2 (07:01→17:26)
--- NOTE | 2021-02-08 07:35 | XR ---
EXAMINATION TYPE: XR chest 1V portable DATE OF EXAM: 02/08/2021 COMPARISON: 02/06/2021 HISTORY: COVID TECHNIQUE: Single frontal view of the chest is obtained. FINDINGS: Extensive bilateral airspace disease appears similar to the prior examination. Biapical bu llous changes are indicative of underlying chronic lung disease. Cardiac silhouette is unchanged. IMPRESSION: No significant change since the prior exam.
[2021-02-08 07:45] LABS: C Reactive Protein 2.5 mg/dL (<1.0)
--- NOTE | 2021-02-08 09:10 | P.PN ---
Subjective Progress Note Date: 02/08/21 56-year-old male patient, known history of hypertension, coming in today because of generalized weakness, fatigue, and some increased shortness of breath and cough. His symptoms started approximately 4 days ago. He was quite hypoxic at the time of his arrival. The patient was was not having any chest pain or lightheadedness or dizziness. At that point, the patient was found to be afebrile. Initial pulse ox was 62% on room air oxygen. The patient was placed on oxygen and currently is on 15 L high flow and 100% nonrebreather facemask. The patient's pulse ox is currently up to 87%. He is resting comfortably in bed. His breathing is slightly labored. Nevertheless his able to communicate and answer questions appropriately. His is also is at the bedside. His respiratory rate is in the low 30s. Neurologically is intact. His blood work is showing a white cell count of 5.3 with hemoglobin of 15.2. D-dimer is at 1.8 with normal fibrillation profile. The blood gas showed a pH of 7.39 with a pCO2 of 28 and pO2 of 54 and this was done and FiO2 of 100%. BUN is at 19 with a creatinine of 0.8. Normal electrolytes. Serum bicarb is at 19. Overnight the testing was positive. ProBNP level was 222 and a troponin level is at 0.0 25. Inflammatory markers are still pending for now. He was started on Decadron. I'm going to start him also on Baricitinib. D-dimer is at 1.8. Elevation of 02/05/2021, the patient is being seen for a follow-up. The patient was seen in consultation yesterday. The patient was getting progressively more hypoxic and at the time of my evaluation in emergency the patient was 100% on a beta facemasks and 15 L of oxygen by nasal cannula. This morning, he is on Airvo at 60 L nasal cannula and the patient is on FiO2 of 90%. He is still wearing his 100% nonrebreather facemask. Chest x-ray showing diffuse bilateral pulmonary infiltrates, essentially unchanged compared to yesterday and this is consistent with a viral pneumonia. In terms of his pulse ox, is around 90%. Laying down comfortably in bed. Breathing is nonlabored at this point in time. D-dimer is at 3.33. The white cell count is at 2.2 with a hemoglobin of 14.4. He does have a component of anion gap metabolic acidosis with a gap of 18 and a serum bicarb of 17. Creatinine is at 0.7. LFTs are normal. LDH level is at 735. He is currently being treated with a combination of Decadron 6 mg twice a day and Baricitinib 4 mg by mouth daily. Doppler of the lower extremity has been negative for DVTs. Blood work shows ongoing lymphopenia, lymphocyte count is up to 0.34. Clinically, he looks a little bit lethargic yet arousable and follows commands and answers questions. He seems to be appropriate. Oral intake is quite diminished at this point in time as the patient is on Airvo in addition to 100% on a on nonrebreather facemask 02/06/2021, the patient has been transferred to the intensive care units. The patient is currently calm and comfortable. He is on 100% on a beta facemask and addition to high flow oxygen as well as Airvo at 60 L with an FiO2 of 90%. He was transferred to the intensive care unit yesterday for closer monitoring. His current pulse ox in the order of 86-91%. He is able to tolerate some diet. His chest x-ray from today is showing diffuse bilateral pulmonary infiltrates consistent with overnight he related pneumonia and infiltrate are essentially stable compared to yesterday without any significant interval change. No evidence of any pneumothorax. Lungs are adequately expanded for now. The patient is being treated with a combination of Decadron and Versed 7. He is receiving Decadron 6 mg twice a day and Baricitinib 4 mg by mouth daily per protocol. Doppler of the lower extremities have been essentially negative. On his blood work today, the patient has white cell count of 4.9 with a hemoglobin of 13.6, d-dimer is at 2.1, normal renal function, normal electrolytes, his LDH level is up to 1685 and his CRP level is down to 5.6. He is afebrile. Doppler of the lower extremities of been negative for DVT. The patient is hemodynamically stable. He is receiving IV fluids in the form of bicarb infusion at the rate of 75 mL an hour. This was added due to his underlying metabolic acidosis. His serum bicarb is 27 with gap of down to 6. As such, he will be placed on normal saline and the bicarb drip will be discontinued. 02/07/2021, the patient is essentially the same as yesterday. He remains on 100% fullface mask nonrebreather addition to a high flow Airvo system with a few of 60 L and FiO2 of 90%. He remains on a combination of Decadron and Baricitinib per protocol. Doppler of the lower extremity is a been negative. He is on Lovenox 40 mg subcu on a daily basis. In terms of his inflammatory mar kers, his LDH level is down to 1571, improved compared to yesterday and his CRP level is down to 3.3. Procal level was at 0.1. Chest x-ray is from yesterday showed covid 19 related pneumonia with some slight improvement in aeration in the right upper lobe. He is awake and alert and communicating. Blood work from today shows a white cell count of 10 with a hemoglobin of 13, d-dimer is up to 5.02, BUN is at 21 with a creatinine of 0.7. Obviously, his breathing is still labored. He feels that he is going to cough and his lungs are irritated. Nevertheless, is not bringing up any significant amount of sputum for the time being. No altered mentation. No diarrhea. No other complaints otherwise. 02/08/2021, patient remains in intensive care unit as the patient is being treated for his Covid 19 related pneumonia and hypoxic respiratory failure. The patient remains on high flow oxygen, Airvo with 60 L and FiO2 of 90%. The patient is also using on and off a nonrebreather facemask at 100%. He is able to maintain a saturation barely above 90%. He is short of breath with limited amount of activity. He is in bed most of the time. He is tolerating his diet. He remains on a combination of Decadron at a dose of 6 mg IV every 12 hours and he is also on Lovenox 40 mg subcu every 12 hours and the patient is also on Baricitinib per protocol. Based on most recent blood work, his d-dimer is up to 14.6. Note that I have already Doppler of his lower extremities and there were negative. His LDH level is slightly higher compared to yesterday is currently at 1747 and his CRP is at 2.5. Less and electrolytes are all within normal limits. Creatinine is normal. White cell count is at 10.3 with a hemoglobin of 12.5. I repeated the chest x-ray. The patient has a bullous emphysematous changes in the upper lobes more so on the right. Overall, the pulmonary infiltration essentially the same and unchanged compared to yesterday. I will say that his condition is essentially unchanged compared to yesterday the patient is still struggling with his oxygenation requiring high flow oxygen and a nonrebreather facemask. Objective - Vital Signs Vital signs: Vital Signs Temp 96.7 F L 02/08/21 04:00 Pulse 72 02/08/21 07:00 Resp 24 02/08/21 07:00 BP 145/77 02/08/21 07:00 Pulse Ox 88 L 02/08/21 07:00 Intake & Output 02/07/21 02/08/21 02/08/21 18:59 06:59 18:59 Intake Total 750 1500 75 Output Total 1000 1250 200 Balance -250 250 -125 Weight 84 kg Intake: IV 750 900 75 Sodium Chloride 0.9% 1, 750 900 75 000 ml @ 75 mls/hr IV . [id number] [facility] Rx#:[id number] Oral 600 Output: Urine 1000 1250 200 Other: Voiding Method Urinal Urinal - Exam Gen. appearance the patient is in mild degree of respiratory distress. Is able to speak up. Sentences. Currently is on Airvo 60 L an FiO2 of 90%, and I think the patient is also on 100% nonrebreather facemask addition to the Airvo system. Head exam was generally normal. There was no scleral icterus or corneal arcus. Mucous membranes were moist. Neck was supple and without jugular venous distension, thyromegaly, or carotid bruits. Carotids were easily palpable bilaterally. There was no adenopathy. Lungs sounds are diminished in the patient's crackles in the mid and lower lung talamantes bilaterally Cardiac exam revealed the PMI to be normally situated and sized. The rhythm was regular and no extrasystoles were noted during several minutes of auscultation. The first and second heart sounds were normal and physiologic splitting of the second heart sound was noted. There were no murmurs, rubs, clicks, or gallops. Abdominal exam revealed normal bowel sounds. The abdomen was soft, non-tender, and without masses, organomegaly, or appreciable enlargement of the abdominal aorta. Examination of the extremities revealed easily palpable radial, femoral and pedal pulses. There was no cyanosis, clubbing or edema. Examination of the skin revealed no evidence of significant rashes, suspicious appearing nevi or other concerning lesions. Neurologically, the patient is awake and alert and the patient does not have any focal neurological deficit. Cranial nerves are essentially intact. - Labs CBC & Chem 7: 02/08/21 05:46 02/08/21 05:46 Labs: Abnormal Lab Results - Last 24 Hours (Table) 02/08/21 02/08/21 02/08/21 Range/Units 05:46 05:46 05:46 RBC 4.04 L (4.30-5.90) m/uL Hgb 12.5 L (13.0-17.5) gm/dL Hct 37.1 L (39.0-53.0) % Neutrophils # 8.9 H (1.3-7.7) k/uL Lymphocytes # 0.4 L (1.0-4.8) k/uL D-Dimer 14.60 H (<0.60) mg/L FEU Glucose 129 H (74-99) mg/dL Lactate Dehydrogenase 1747 H (313-618) U/L C-Reactive Protein 2.5 H (<1.0) mg/dL Total Protein 5.7 L (6.3-8.2) g/dL Albumin 3.1 L (3.5-5.0) g/dL Assessment and Plan Plan: 1 acute COVID 19 related pneumonia with secondary respiratory failure. Currently on 100% nonrebreather facemask in addition to airvo 60 liters and 90% Fio2. Breathing remains mildly labored. . Chest x-ray showing diffuse bilateral pulmonary infiltrates consistent with COVID 19 related pneumonia. No interval worsening in his chest x-ray findings. LVH is slightly higher. D-dimer slightly higher. Remains on a combination of Baricitinib and Decadron. He is also on Lovenox 40 mg subcu for DVT prophylaxis. His oxygenation is stable. He is getting slightly more anxious., And I would say there is no major changes condition since yesterday. No worsening in his oxygenation. He seems to be comfortable. Breathing is labored and the patient gets short of breath with activity even when he is trying to move within his bed. Should be able to be moved on a recliner 2 shortness of breath secondary to above 3 mild non-anion gap metabolic acidosis, improved with a bicarb infusion covered and the patient is currently on a normal saline infusion 4 hypertension Plan Continue Airvo 60 L an FiO2 of 90% and combination with a nonrebreather facemask Continue Decadron 6 mg every 12 hours Start the patient on Baricitinib per protocol Lovenox 40 mg subcu for DVT prophylaxis Multivitamin cocktail for COVID 19 related infections We'll continue to follow. We'll make further recommendations based on his progress. Down the IV fluids to KVO Given a dose of Lasix 40 mg IV push Keep the patient intensive care unit We'll continue to follow
[2021-02-08] MEDS ORDERED: FUROSEMIDE 10 MG/ML 4 ML VIAL IV STA (09:11)
[2021-02-08] MEDS: PANTOPRAZOLE 40 MG/10 ML VIAL IVP SCH ×2 (09:26→21:36)
[2021-02-08] MEDS: CHOLECALCIFEROL 25 MCG (1000 IU) TABLET PO SCH (09:26)
[2021-02-08] MEDS: ZINC SULFATE 220 MG CAP PO SCH (09:26)
[2021-02-08] MEDS: ENOXAPARIN 40 MG/0.4 ML SYRINGE SQ SCH (09:26)
[2021-02-08] MEDS: MULTIVITAMINS, THERA 1 EACH TAB PO SCH (09:27)
[2021-02-08] MEDS: ASCORBIC ACID 500 MG TAB PO SCH (09:27)
[2021-02-08] MEDS: dexAMETHasone 2 MG TAB PO SCH ×2 (09:28→21:36)
[2021-02-08] MEDS: BARICITINIB 2 MG TABLET PO SCH (15:48)
--- NOTE | 2021-02-08 17:46 | P.PN ---
Subjective Progress Note Date: 02/08/21 Progress Note Date: 02/08/21 HISTORY OF PRESENT ILLNESS: This is a 56-year-old male with a past medical history significant for hypertension and hypertensive cardiovascular disease, hyperlipidemia, history of tobacco use and dependence, presented to the emergency department at [facility] with increased coughing and increased shortness breath that started last and has been getting worse over the last few days, yesterday he was extremely short of breath and his oxygen saturation was in the low 70s, his tried to get him to the ER but eventually called 911 and the patient was brought into the ER at [facility] where he had a chest x-ray that did show evidence of bilateral patchy infiltrate suggestive of Covid pneumonia, his COVID-19 PCR was positive, patient was started on nonrebreather, and later on was seen in consultation by pulmonary medicine and he was placed on Airvo and was started on Bacitinib 4 mg po daily and the patient was admitted to the hospital for further evaluation and treatment. 02/05: A shunt is currently on AirVol. He has complained of feeling tired and complaining of gastric reflux. Protonix will be increased to 40 mg IV push twice daily. Patient is been seen by pulmonary medicine and started on Bar icitinib, continued on dexamethasone 6 mg twice daily, Lovenox 40 mg daily. He has been afebrile, heart rate 92, blood pressure 137/86, pulse ox 97%. Repeat blood work reveals WBC 2.2, d-dimer 3.33, blood sugar 143. LDH 735, C-reactive protein 15.5. Chest x-ray reveals chronic emphysematous and pulmonary fibrotic changes with bilateral multifocal reticular nodular opacities consistent with COVID-19. Perhaps slight improvement in the right lung base. Ultrasound of bilateral lower extremities negative for DVT. 02/06: Last evening, patient was transferred into the intensive care unit as he was on 15 L nonrebreather was transitioned over to AirVo 60 L 90% with nonrebreather on top. Pulse ox is currently running 84-87%. He has been afebrile, heart rate in the 80s and 90s, respiratory rate 29, blood pressure 131/82. Patient is requesting Cepacol lozenges and nasal spray added. Ensure 3 times daily also added, patient has decreased appetite and limited oral intake. Repeat blood work reveals WBC 4.9, hemoglobin 13.6. Platelet count 381. D- dimer 2.15. LDH 1685. C-reactive protein 5.6. Repeat chest x-ray revealed continue his Covid infiltrate superimposed on bollous emphysema. Slight improvement in aeration in the right upper lobe. Patient is continued on dexamethasone, Lovenox, vitamin supplements and Baricitinib. 02/07:patient remains in the intensive care unit. He is on nonrebreather mask as well as high flow AirVo with O2 at 60 L, FiO2 90%. patient remains afebrile, heart rate in the 70s, respiratory rate 26, blood pressure 127/79, pulse ox 86- 88%, pulse ox drops in the low 80s when patient ate's. He is on ensure 3 times daily. Patient is complaining of some cough and back pain when he coughs. He is less fatigued today. 02/08: Patient remains in intensive care unit currently on nonrebreather, as well as a high flow airflow oxygen still borderline at 89%, patient is eating his protein, hysterectomy 8 his breakfast, he has no chest pain at this time he continues to be extreme short of breath, he has no abdominal pain, he had lost some of the states, he has no headache, he has no hemoptysis, he has no pleurisy, he has no edema. REVIEW OF SYSTEMS: Constitutional: Denies fever, chills, night sweats. No weight change. positive for weakness, reports fatigue no lethargy. Reports daytime sleepiness. HEENT: No headache. No blurred vision or double vision, no loss of vision. No loss of Hearing, no ringing in the ears, no dizziness. No nasal drainage or congestion. No epistaxis. Reports sore throat. Lungs: positive for shortness of breath, positive for cough, positive for sputum production. positive for wheezing. Reports dyspnea with activity. Cardiovascular: No chest pain, no lower extremity edema. No palpitations. No paroxysmal nocturnal dyspnea. No orthopnea. No lightheadedness or dizziness. No syncopal episodes. Abdominal: Reports abdominal pain. No nausea, vomiting. No diarrhea. No constipation. No bloody or tarry stools reports loss of appetite. Reports gastric reflux. Genitourinary: No dysuria, increased frequency, urgency. No urinary retention. Musculoskeletal: positive for myalgias. positive for muscle weakness, no gait dysfunction, no frequent falls. No back pain. No neck pain. Integumentary: No wounds, no lesions. No rash or pruritus. No unusual bruising. No change in hair or nails. Neurologic: No aphasia. No facial droop. No change in mentation. No head injury. No headache. No paralysis. No paresthesia. Psychiatric: No depression. No anxiety. No mood swings. Endocrine: No abnormal blood sugars. No weight change. PHYSICAL EXAMINATION: General: 56-year-old male laying down in bed in moderate respiratory distress HEENT: Head is atraumatic, normocephalic, pupils were equal round reactive to light and recommendation, extraocular muscle movement were intact, sclera n onicteric, conjunctivae were pale, mucous membranes of the mouth are dry. Neck: Supple, no JVP, normal carotid upstroke bilaterally, no lymphadenopathy. Chest: Decreased breath sounds at the bases, few rhonchi, moderate expiratory wheezes, no chest wall tenderness, positive for moderate intercostal retractions. Heart: First heart sound is normal, second heart sounds normal, tachycardic there is no gallop or murmur. Abdomen: Soft, nontender, nondistended, positive bowel sounds, no hepatosplenome christine. Extremities: There is no edema no calf tenderness DP +2 bilaterally. Neurologic examination: Patient is awake alert and oriented X 3, cranial nerves II-12 appear grossly intact, muscle power were 5 out of 5 in upper extremities and 5 out of 5 in bilateral lower extremities, deep tendon reflexes normal bilaterally. ASSESSMENT AND PLAN: 1. Acute hypoxemic respiratory failure due to bilateral patchy interstitial pneumonia due to COVID-19 pneumonia. Continue patient on Decadron 6 mg orally twice every day, continue patient on Vitamin C 1000 mg orally once every day, continue zinc 220 mg once every day, continue vitamin D 1000 units once every day, continue with Baricitinib 4 mg orally once every day for 14 doses continue oxygen support currently on 100% nonrebreather and AirVo at 15 L, continue care in the intensive care unit. Pulmonary consultation appreciated. 2. Bilateral Covid pneumonia with ARDS. Continue with Airvo, continue dexamethasone 6 mg orally twice every day, continue with supportive care. 3. Mild non-anion gap metabolic acidosis. Status post bicarb infusion. 4. Moderate 14-calorie malnutrition secondary to decreased appetite and difficulty eating with oxygen mask. Ensure 3 times daily. 5. DVT prophylaxis. Continue Lovenox 40 mg subcutaneously every 24 hours 6. GERD and GI prophylaxis. Continue patient on Protonix 40 mg IV push every 12 hours as well as Carafate 1 g orally twice every day . 7. Patient is full code. Objective - Vital Signs Vital signs: Vital Signs Temp 96.7 F L 02/08/21 04:00 Pulse 72 02/08/21 07:00 Resp 24 02/08/21 07:00 BP 145/77 02/08/21 07:00 Pulse Ox 88 L 02/08/21 07:00 Intake & Output 02/07/21 02/08/21 02/08/21 18:59 06:59 18:59 Intake Total 750 1500 75 Output Total 1000 1250 200 Balance -250 250 -125 Weight 84 kg Intake: IV 750 900 75 Sodium Chloride 0.9% 1, 750 900 75 000 ml @ 75 mls/hr IV . [id number] [facility] Rx#:[id number] Oral 600 Output: Urine 1000 1250 200 Other: Voiding Method Urinal Urinal - Labs CBC & Chem 7: 02/08/21 05:46 02/08/21 05:46 Labs: Abnormal Lab Results - Last 24 Hours (Table) 02/08/21 Range/Units 05:46 D-Dimer 14.60 H (<0.60) mg/L FEU
[2021-02-09 04:37] LABS: Basophils % (A) 0 %; Eosinophils % (A) 0 %; HCT 40.2 % (39.0-53.0); HGB 13.7 gm/dL (13.0-17.5); Lymphocytes # (A) 0.4 k/uL (1.0-4.8); Lymphocytes % (A) 4 %; MCH 31.1 pg (25.0-35.0); MCHC 33.9 g/dL (31.0-37.0); MCV 91.5 fL (80.0-100.0); Monocytes # (A) 0.9 k/uL (0-1.0); Monocytes % (A) 8 %; Neutrophils # (A) 9.4 k/uL (1.3-7.7); Neutrophils % (A) 86 %; Platelet Count 378 k/uL (150-450); RDW 12.7 % (11.5-15.5); WBC 10.9 k/uL (3.8-10.6)
[2021-02-09 04:53] LABS: ALT 54 U/L (4-49); AST 28 U/L (17-59); African American GFR (CKD) >90 (>60 ml/min/1.73 sqM); Albumin 3.4 g/dL (3.5-5.0); Alkaline Phosphatase 99 U/L (38-126); Anion Gap 8 mmol/L; Blood Urea Nitrogen 26 mg/dL (9-20); C Reactive Protein 1.8 mg/dL (<1.0); Calcium 9.1 mg/dL (8.4-10.2); Carbon Dioxide 28 mmol/L (22-30); Chloride 99 mmol/L (98-107); Glucose 125 mg/dL (74-99); LDH 1513 U/L (313-618); Non-African American GFR(CKD) >90 (>60 ml/min/1.73 sqM); Potassium 4.4 mmol/L (3.5-5.1); Sodium 135 mmol/L (137-145); Total Bilirubin 0.5 mg/dL (0.2-1.3); Total Protein 6.2 g/dL (6.3-8.2)
[2021-02-09] MEDS: SODIUM CHLORIDE 0.9% 1,000 ML IV SCH (06:39)
[2021-02-09] MEDS: SUCRALFATE 1 GM TAB PO SCH ×2 (06:39→17:35)
--- NOTE | 2021-02-09 07:51 | P.PN ---
Subjective Progress Note Date: 02/09/21 56-year-old male patient, known history of hypertension, coming in today because of generalized weakness, fatigue, and some increased shortness of breath and cough. His symptoms started approximately 4 days ago. He was quite hypoxic at the time of his arrival. The patient was was not having any chest pain or lightheadedness or dizziness. At that point, the patient was found to be afebrile. Initial pulse ox was 62% on room air oxygen. The patient was placed on oxygen and currently is on 15 L high flow and 100% nonrebreather facemask. The patient's pulse ox is currently up to 87%. He is resting comfortably in bed. His breathing is slightly labored. Nevertheless his able to communicate and answer questions appropriately. His is also is at the bedside. His respiratory rate is in the low 30s. Neurologically is intact. His blood work is showing a white cell count of 5.3 with hemoglobin of 15.2. D-dimer is at 1.8 with normal fibrillation profile. The blood gas showed a pH of 7.39 with a pCO2 of 28 and pO2 of 54 and this was done and FiO2 of 100%. BUN is at 19 with a creatinine of 0.8. Normal electrolytes. Serum bicarb is at 19. Overnight the testing was positive. ProBNP level was 222 and a troponin level is at 0.0 25. Inflammatory markers are still pending for now. He was started on Decadron. I'm going to start him also on Baricitinib. D-dimer is at 1.8. Elevation of 02/05/2021, the patient is being seen for a follow-up. The patient was seen in consultation yesterday. The patient was getting progressively more hypoxic and at the time of my evaluation in emergency the patient was 100% on a beta facemasks and 15 L of oxygen by nasal cannula. This morning, he is on Airvo at 60 L nasal cannula and the patient is on FiO2 of 90%. He is still wearing his 100% nonrebreather facemask. Chest x-ray showing diffuse bilateral pulmonary infiltrates, essentially unchanged compared to yesterday and this is consistent with a viral pneumonia. In terms of his pulse ox, is around 90%. Laying down comfortably in bed. Breathing is nonlabored at this point in time. D-dimer is at 3.33. The white cell count is at 2.2 with a hemoglobin of 14.4. He does have a component of anion gap metabolic acidosis with a gap of 18 and a serum bicarb of 17. Creatinine is at 0.7. LFTs are normal. LDH level is at 735. He is currently being treated with a combination of Decadron 6 mg twice a day and Baricitinib 4 mg by mouth daily. Doppler of the lower extremity has been negative for DVTs. Blood work shows ongoing lymphopenia, lymphocyte count is up to 0.34. Clinically, he looks a little bit lethargic yet arousable and follows commands and answers questions. He seems to be appropriate. Oral intake is quite diminished at this point in time as the patient is on Airvo in addition to 100% on a on nonrebreather facemask 02/06/2021, the patient has been transferred to the intensive care units. The patient is currently calm and comfortable. He is on 100% on a beta facemask and addition to high flow oxygen as well as Airvo at 60 L with an FiO2 of 90%. He was transferred to the intensive care unit yesterday for closer monitoring. His current pulse ox in the order of 86-91%. He is able to tolerate some diet. His chest x-ray from today is showing diffuse bilateral pulmonary infiltrates consistent with overnight he related pneumonia and infiltrate are essentially stable compared to yesterday without any significant interval change. No evidence of any pneumothorax. Lungs are adequately expanded for now. The patient is being treated with a combination of Decadron and Versed 7. He is receiving Decadron 6 mg twice a day and Baricitinib 4 mg by mouth daily per protocol. Doppler of the lower extremities have been essentially negative. On his blood work today, the patient has white cell count of 4.9 with a hemoglobin of 13.6, d-dimer is at 2.1, normal renal function, normal electrolytes, his LDH level is up to 1685 and his CRP level is down to 5.6. He is afebrile. Doppler of the lower extremities of been negative for DVT. The patient is hemodynamically stable. He is receiving IV fluids in the form of bicarb infusion at the rate of 75 mL an hour. This was added due to his underlying metabolic acidosis. His serum bicarb is 27 with gap of down to 6. As such, he will be placed on normal saline and the bicarb drip will be discontinued. 02/07/2021, the patient is essentially the same as yesterday. He remains on 100% fullface mask nonrebreather addition to a high flow Airvo system with a few of 60 L and FiO2 of 90%. He remains on a combination of Decadron and Baricitinib per protocol. Doppler of the lower extremity is a been negative. He is on Lovenox 40 mg subcu on a daily basis. In terms of his inflammatory mar kers, his LDH level is down to 1571, improved compared to yesterday and his CRP level is down to 3.3. Procal level was at 0.1. Chest x-ray is from yesterday showed covid 19 related pneumonia with some slight improvement in aeration in the right upper lobe. He is awake and alert and communicating. Blood work from today shows a white cell count of 10 with a hemoglobin of 13, d-dimer is up to 5.02, BUN is at 21 with a creatinine of 0.7. Obviously, his breathing is still labored. He feels that he is going to cough and his lungs are irritated. Nevertheless, is not bringing up any significant amount of sputum for the time being. No altered mentation. No diarrhea. No other complaints otherwise. 02/08/2021, patient remains in intensive care unit as the patient is being treated for his Covid 19 related pneumonia and hypoxic respiratory failure. The patient remains on high flow oxygen, Airvo with 60 L and FiO2 of 90%. The patient is also using on and off a nonrebreather facemask at 100%. He is able to maintain a saturation barely above 90%. He is short of breath with limited amount of activity. He is in bed most of the time. He is tolerating his diet. He remains on a combination of Decadron at a dose of 6 mg IV every 12 hours and he is also on Lovenox 40 mg subcu every 12 hours and the patient is also on Baricitinib per protocol. Based on most recent blood work, his d-dimer is up to 14.6. Note that I have already Doppler of his lower extremities and there were negative. His LDH level is slightly higher compared to yesterday is currently at 1747 and his CRP is at 2.5. Less and electrolytes are all within normal limits. Creatinine is normal. White cell count is at 10.3 with a hemoglobin of 12.5. I repeated the chest x-ray. The patient has a bullous emphysematous changes in the upper lobes more so on the right. Overall, the pulmonary infiltration essentially the same and unchanged compared to yesterday. I will say that his condition is essentially unchanged compared to yesterday the patient is still struggling with his oxygenation requiring high flow oxygen and a nonrebreather facemask. 02/09/2021, patient is essentially unchanged. Remains on Airvo at 60 L an FiO2 of 90% along with a nonrebreather facemask. Chest x-ray findings are essentiall y stable with diffuse bilateral pulmonary infiltrates, unchanged with daily comparison. He remains on a combination of Decadron and Baricitinib and the patient is also on Lovenox 40 mg subcu every 12 hours. Inflammatory markers from today was noted. There is a slight drop the LDH which is currently down to 1513. CRP is down to 1.8, and the d-dimer currently is at 13.9. No other significant events overnight. The patient continues to desaturate easily. No interval worsening shortness of breath. His condition is overall stable. We'll keep him on the same oxygen setting which is a Airvo at 60 L along with 100% nonrebreather facemask for now. He is tolerating his diet. No nausea. No v omiting. No altered mentation. She was given a dose of Lasix yesterday with excellent urine output and he has a negative fluid balance is. His IV fluids currently are KVO Objective - Vital Signs Vital signs: Vital Signs Temp 97.1 F L 02/09/21 04:00 Pulse 65 02/09/21 07:00 Resp 10 L 02/09/21 07:00 BP 117/72 02/09/21 07:00 Pulse Ox 93 L 02/09/21 07:00 Intake & Output 02/08/21 02/09/21 02/09/21 18:59 06:59 18:59 Intake Total 1630 Output Total 3080 900 200 Balance -1450 -900 -200 Weight 79.5 kg Intake: IV 190 Sodium Chloride 0.9% 1, 190 000 ml @ 10 mls/hr IV . Q24H [facility] Rx#:[id number] Oral 1440 Output: Urine 3080 900 200 Other: Voiding Method Urinal Urinal # Voids 1 # Bowel Movements 1 - Exam Gen. appearance the patient is in mild degree of respiratory distress. Is able to speak up. Sentences. Currently is on Airvo 60 L an FiO2 of 90%, and I think the patient is also on 100% nonrebreather facemask addition to the Airvo system. Head exam was generally normal. There was no scleral icterus or corneal arcus. Mucous membranes were moist. Neck was supple and without jugular venous distension, thyromegaly, or carotid bruits. Carotids were easily palpable bilaterally. There was no adenopathy. Lungs sounds are diminished in the patient's crackles in the mid and lower lung talamantes bilaterally Cardiac exam revealed the PMI to be normally situated and sized. The rhythm was regular and no extrasystoles were noted during several minutes of auscultation. The first and second heart sounds were normal and physiologic splitting of the second heart sound was noted. There were no murmurs, rubs, clicks, or gallops. Abdominal exam revealed normal bowel sounds. The abdomen was soft, non-tender, and without masses, organomegaly, or appreciable enlargement of the abdominal aorta. Examination of the extremities revealed easily palpable radial, femoral and pedal pulses. There was no cyanosis, clubbing or edema. Examination of the skin revealed no evidence of significant rashes, suspicious appearing nevi or other concerning lesions. Neurologically, the patient is awake and alert and the patient does not have any focal neurological deficit. Cranial nerves are essentially intact. - Labs CBC & Chem 7: 02/09/21 04:15 02/09/21 04:15 Labs: Abnormal Lab Results - Last 24 Hours (Table) 02/08/21 02/09/21 02/09/21 Range/Units 05:46 04:15 04:15 WBC 10.9 H (3.8-10.6) k/uL Neutrophils # 9.4 H (1.3-7.7) k/uL Lymphocytes # 0.4 L (1.0-4.8) k/uL D-Dimer 13.95 H (<0.60) mg/L FEU Sodium (137-145) mmol/L BUN (9-20) mg/dL Glucose (74-99) mg/dL ALT (4-49) U/L Lactate Dehydrogenase (313-618) U/L C-Reactive Protein 2.5 H (<1.0) mg/dL Total Protein (6.3-8.2) g/dL Albumin (3.5-5.0) g/dL 02/09/21 Range/Units 04:15 WBC (3.8-10.6) k/uL Neutrophils # (1.3-7.7) k/uL Lymphocytes # (1.0-4.8) k/uL D-Dimer (<0.60) mg/L FEU Sodium 135 L (137-145) mmol/L BUN 26 H (9-20) mg/dL Glucose 125 H (74-99) mg/dL ALT 54 H (4-49) U/L Lactate Dehydrogenase 1513 H (313-618) U/L C-Reactive Protein 1.8 H (<1.0) mg/dL Total Protein 6.2 L (6.3-8.2) g/dL Albumin 3.4 L (3.5-5.0) g/dL Assessment and Plan Plan: 1 acute COVID 19 related pneumonia with secondary respiratory failure. Currently on 100% nonrebreather facemask in addition to airvo 60 liters and 90% Fio2. Breathing remains mildly labored. . Chest x-ray showing diffuse bilateral pulmonary infiltrates consistent with COVID 19 related pneumonia. No interval worsening in his chest x-ray findings. LVH is slightly higher. D-dimer slightly higher. Remains on a combination of Baricitinib and Decadron. He is also on Lovenox 40 mg subcu for DVT prophylaxis. His oxygenation is stable. The oxygenation remains unchanged. Chest x-ray remains unchanged. There is some mild improvement in the inflammatory markers. 2 shortness of breath secondary to above 3 mild non-anion gap metabolic acidosis, improved with a bicarb infusion covered and the patient is currently on a normal saline infusion 4 hypertension Plan Continue Airvo 60 L an FiO2 of 90% and combination with a nonrebreather facemask Continue Decadron 6 mg every 12 hours patient on Baricitinib per protocol Lovenox 40 mg subcu for DVT prophylaxis Multivitamin cocktail for COVID 19 related infections We'll continue to follow. We'll make further recommendations based on his progress. Down the IV fluids to KVO Given another dose of Lasix 40 mg IV push Keep the patient intensive care unit We'll continue to follow
[2021-02-09] MEDS ORDERED: FUROSEMIDE 10 MG/ML 4 ML VIAL IV STA (08:30)
[2021-02-09] MEDS: ENOXAPARIN 40 MG/0.4 ML SYRINGE SQ SCH (09:12)
[2021-02-09] MEDS: ZINC SULFATE 220 MG CAP PO SCH (09:12)
[2021-02-09] MEDS: PANTOPRAZOLE 40 MG/10 ML VIAL IVP SCH ×2 (09:12→20:27)
[2021-02-09] MEDS: dexAMETHasone 2 MG TAB PO SCH ×2 (09:12→20:27)
[2021-02-09] MEDS: ASCORBIC ACID 500 MG TAB PO SCH (09:13)
[2021-02-09] MEDS: MULTIVITAMINS, THERA 1 EACH TAB PO SCH (09:13)
[2021-02-09] MEDS: CHOLECALCIFEROL 25 MCG (1000 IU) TABLET PO SCH (09:13)
--- NOTE | 2021-02-09 09:30 | P.PN ---
Subjective Progress Note Date: 02/09/21 Progress Note Date: 02/08/21 HISTORY OF PRESENT ILLNESS: This is a 56-year-old male with a past medical history significant for hypertension and hypertensive cardiovascular disease, hyperlipidemia, history of tobacco use and dependence, presented to the emergency department at [facility] with increased coughing and increased shortness breath that started last and has been getting worse over the last few days, yesterday he was extremely short of breath and his oxygen saturation was in the low 70s, his tried to get him to the ER but eventually called 911 and the patient was brought into the ER at [facility] where he had a chest x-ray that did show evidence of bilateral patchy infiltrate suggestive of Covid pneumonia, his COVID-19 PCR was positive, patient was started on nonrebreather, and later on was seen in consultation by pulmonary medicine and he was placed on Airvo and was started on Bacitinib 4 mg po daily and the patient was admitted to the hospital for further evaluation and treatment. 02/05: A shunt is currently on AirVol. He has complained of feeling tired and complaining of gastric reflux. Protonix will be increased to 40 mg IV push twice daily. Patient is been seen by pulmonary medicine and started on Bar icitinib, continued on dexamethasone 6 mg twice daily, Lovenox 40 mg daily. He has been afebrile, heart rate 92, blood pressure 137/86, pulse ox 97%. Repeat blood work reveals WBC 2.2, d-dimer 3.33, blood sugar 143. LDH 735, C-reactive protein 15.5. Chest x-ray reveals chronic emphysematous and pulmonary fibrotic changes with bilateral multifocal reticular nodular opacities consistent with COVID-19. Perhaps slight improvement in the right lung base. Ultrasound of bilateral lower extremities negative for DVT. 02/06: Last evening, patient was transferred into the intensive care unit as he was on 15 L nonrebreather was transitioned over to AirVo 60 L 90% with nonrebreather on top. Pulse ox is currently running 84-87%. He has been afebrile, heart rate in the 80s and 90s, respiratory rate 29, blood pressure 131/82. Patient is requesting Cepacol lozenges and nasal spray added. Ensure 3 times daily also added, patient has decreased appetite and limited oral intake. Repeat blood work reveals WBC 4.9, hemoglobin 13.6. Platelet count 381. D- dimer 2.15. LDH 1685. C-reactive protein 5.6. Repeat chest x-ray revealed continue his Covid infiltrate superimposed on bollous emphysema. Slight improvement in aeration in the right upper lobe. Patient is continued on dexamethasone, Lovenox, vitamin supplements and Baricitinib. 02/07:patient remains in the intensive care unit. He is on nonrebreather mask as well as high flow AirVo with O2 at 60 L, FiO2 90%. patient remains afebrile, heart rate in the 70s, respiratory rate 26, blood pressure 127/79, pulse ox 86- 88%, pulse ox drops in the low 80s when patient ate's. He is on ensure 3 times daily. Patient is complaining of some cough and back pain when he coughs. He is less fatigued today. 02/08: Patient remains in intensive care unit currently on nonrebreather, as well as a high flow airflow oxygen still borderline at 89%, patient is eating his protein, hysterectomy 8 his breakfast, he has no chest pain at this time he continues to be extreme short of breath, he has no abdominal pain, he had lost some of the states, he has no headache, he has no hemoptysis, he has no pleurisy, he has no edema. 02/09: Patient sitting up in a chair his feeling a bit better. He continues to be on nonrebreather along with airflow 60 L, he denies any chest pain, his continues to be somewhat short of breath, he continues to struggle with breathing, has no abdominal pain, he had a good bowel movement yesterday, he is tolerating his food, patient is stable at this point in time, he will stay in the intensive care unit due to his oxygen requirement, chest x-ray showed bilateral diffuse infiltrate suggestive of Covid pneumonia, he continues to be on Decadron 6 mg orally twice every day, we'll continue conservative management continue supportive care continue Baricitinib daily for a total of 14 doses today is 08/10 REVIEW OF SYSTEMS: Constitutional: Denies fever, chills, night sweats. No weight change. positive for weakness, reports fatigue no lethargy. Reports daytime sleepiness. HEENT: No headache. No blurred vision or double vision, no loss of vision. No loss of Hearing, no ringing in the ears, no dizziness. No nasal drainage or congestion. No epistaxis. Reports sore throat. Lungs: positive for shortness of breath, positive for cough, positive for sputum production. positive for wheezing. Reports dyspnea with activity. Cardiovascular: No chest pain, no lower extremity edema. No palpitations. No paroxysmal nocturnal dyspnea. No orthopnea. No lightheadedness or dizziness. No syncopal episodes. Abdominal: Reports abdominal pain. No nausea, vomiting. No diarrhea. No constipation. No bloody or tarry stools reports loss of appetite. Reports gastric reflux. Genitourinary: No dysuria, increased frequency, urgency. No urinary retention. Musculoskeletal: positive for myalgias. positive for muscle weakness, no gait dysfunction, no frequent falls. No back pain. No neck pain. Integumentary: No wounds, no lesions. No rash or pruritus. No unusual bruising. No change in hair or nails. Neurologic: No aphasia. No facial droop. No change in mentation. No head injury. No headache. No paralysis. No paresthesia. Psychiatric: No depression. No anxiety. No mood swings. Endocrine: No abnormal blood sugars. No weight change. PHYSICAL EXAMINATION: General: 56-year-old male laying down in bed in moderate respiratory distress HEENT: Head is atraumatic, normocephalic, pupils were equal round reactive to light and recommendation, extraocular muscle movement were intact, sclera nonicteric, conjunctivae were pale, mucous membranes of the mouth are dry. Neck: Supple, no JVP, normal carotid upstroke bilaterally, no lymphadenopathy. Chest: Decreased breath sounds at the bases, few rhonchi, moderate expiratory wheezes, no chest wall tenderness, positive for moderate intercostal retractions. Heart: First heart sound is normal, second heart sounds normal, tachycardic th ere is no gallop or murmur. Abdomen: Soft, nontender, nondistended, positive bowel sounds, no hepato splenomegaly. Extremities: There is no edema no calf tenderness DP +2 bilaterally. Neurologic examination: Patient is awake alert and oriented X 3, cranial nerves II-12 appear grossly intact, muscle power were 5 out of 5 in upper extremities and 5 out of 5 in bilateral lower extremities, deep tendon reflexes normal bilaterally. ASSESSMENT AND PLAN: 1. Acute hypoxemic respiratory failure due to bilateral patchy interstitial pneumonia due to COVID-19 pneumonia. Continue patient on Decadron 6 mg orally twice every day, continue patient on Vitamin C 1000 mg orally once every day, continue zinc 220 mg once every day, continue vitamin D 1000 units once every day, continue with Baricitinib 4 mg orally once every day for 5 doses continue oxygen support currently on 100% nonrebreather and AirVo at 15 L, continue care in the intensive care unit. 2. Bilateral Covid pneumonia with ARDS. Continue with Airvo, continue dexamethasone 6 mg orally twice every day, continue with supportive care. 3. Mild non-anion gap metabolic acidosis. Resolved. 4. Moderate 14-calorie malnutrition secondary to decreased appetite and difficulty eating with oxygen mask. Ensure 3 times daily. 5. DVT prophylaxis. Continue Lovenox 40 mg subcutaneously every 24 hours 6. GERD and GI prophylaxis. Continue patient on Protonix 40 mg IV push every 12 hours as well as Carafate 1 g orally twice every day . 7. Patient is full code. Objective - Vital Signs Vital signs: Vital Signs Temp 97.1 F L 02/09/21 04:00 Pulse 65 02/09/21 07:00 Resp 10 L 02/09/21 07:00 BP 117/72 02/09/21 07:00 Pulse Ox 93 L 02/09/21 08:12 Intake & Output 02/08/21 02/09/21 02/09/21 18:59 06:59 18:59 Intake Total 1630 Output Total 3080 900 400 Balance -1450 -900 -400 Weight 79.5 kg Intake: IV 190 Sodium Chloride 0.9% 1, 190 000 ml @ 10 mls/hr IV . Q24H [facility] Rx#:[id number] Oral 1440 Output: Urine 3080 900 400 Other: Voiding Method Urinal Urinal # Voids 1 1 # Bowel Movements 1 - Labs CBC & Chem 7: 02/09/21 04:15 02/09/21 04:15 Labs: Abnormal Lab Results - Last 24 Hours (Table) 02/09/21 02/09/21 02/09/21 Range/Units 04:15 04:15 04:15 WBC 10.9 H (3.8-10.6) k/uL Neutrophils # 9.4 H (1.3-7.7) k/uL Lymphocytes # 0.4 L (1.0-4.8) k/uL D-Dimer 13.95 H (<0.60) mg/L FEU Sodium 135 L (137-145) mmol/L BUN 26 H (9-20) mg/dL Glucose 125 H (74-99) mg/dL ALT 54 H (4-49) U/L Lactate Dehydrogenase 1513 H (313-618) U/L C-Reactive Protein 1.8 H (<1.0) mg/dL Total Protein 6.2 L (6.3-8.2) g/dL Albumin 3.4 L (3.5-5.0) g/dL
--- NOTE | 2021-02-09 10:04 | XR ---
EXAMINATION TYPE: XR chest 1V portable DATE OF EXAM: 02/09/2021 COMPARISON: 02/08/21 INDICATION: Covid TECHNIQUE: Single frontal view of the chest is obtained. FINDINGS: The heart size is normal. The pulmonary vasculature is normal. Bilateral lung infiltrates, stable. IMPRESSION: 1. Stable portable chest
[2021-02-09] MEDS: BARICITINIB 2 MG TABLET PO SCH (14:42)
[2021-02-10] MEDS: SODIUM CHLORIDE 0.9% 1,000 ML IV SCH (03:40)
[2021-02-10 05:01] LABS: Basophils # (A) 0.1 k/uL (0-0.2); Basophils % (A) 0 %; Eosinophils % (A) 0 %; HCT 43.4 % (39.0-53.0); HGB 15.3 gm/dL (13.0-17.5); Hyperchromasia Slight; Lymphocytes # (A) 0.5 k/uL (1.0-4.8); Lymphocytes % (A) 3 %; MCH 31.5 pg (25.0-35.0); MCHC 35.1 g/dL (31.0-37.0); MCV 89.8 fL (80.0-100.0); Mean Platelet Volume 7.9; Monocytes # (A) 1.3 k/uL (0-1.0); Monocytes % (A) 9 %; Neutrophils # (A) 12.9 k/uL (1.3-7.7); Neutrophils % (A) 87 %; Platelet Count 521 k/uL (150-450); RBC 4.84 m/uL (4.30-5.90); RDW 13.5 % (11.5-15.5); WBC 14.8 k/uL (3.8-10.6)
[2021-02-10 05:11] LABS: ALT 48 U/L (4-49); AST 22 U/L (17-59); African American GFR (CKD) >90 (>60 ml/min/1.73 sqM); Albumin 3.8 g/dL (3.5-5.0); Alkaline Phosphatase 93 U/L (38-126); Anion Gap 11 mmol/L; Blood Urea Nitrogen 30 mg/dL (9-20); Calcium 9.7 mg/dL (8.4-10.2); Carbon Dioxide 25 mmol/L (22-30); Chloride 101 mmol/L (98-107); Glucose 150 mg/dL (74-99); LDH 1395 U/L (313-618); Non-African American GFR(CKD) >90 (>60 ml/min/1.73 sqM); Potassium 4.7 mmol/L (3.5-5.1); Sodium 137 mmol/L (137-145); Total Bilirubin 0.5 mg/dL (0.2-1.3); Total Protein 6.6 g/dL (6.3-8.2)
[2021-02-10 06:20] LABS: C Reactive Protein 1.4 mg/dL (<1.0)
[2021-02-10] MEDS: SUCRALFATE 1 GM TAB PO SCH ×2 (06:45→18:49)
--- NOTE | 2021-02-10 07:18 | P.PN ---
Subjective Progress Note Date: 02/10/21 56-year-old male patient, known history of hypertension, coming in today because of generalized weakness, fatigue, and some increased shortness of breath and cough. His symptoms started approximately 4 days ago. He was quite hypoxic at the time of his arrival. The patient was was not having any chest pain or lightheadedness or dizziness. At that point, the patient was found to be afebrile. Initial pulse ox was 62% on room air oxygen. The patient was placed on oxygen and currently is on 15 L high flow and 100% nonrebreather facemask. The patient's pulse ox is currently up to 87%. He is resting comfortably in bed. His breathing is slightly labored. Nevertheless his able to communicate and answer questions appropriately. His is also is at the bedside. His respiratory rate is in the low 30s. Neurologically is intact. His blood work is showing a white cell count of 5.3 with hemoglobin of 15.2. D-dimer is at 1.8 with normal fibrillation profile. The blood gas showed a pH of 7.39 with a pCO2 of 28 and pO2 of 54 and this was done and FiO2 of 100%. BUN is at 19 with a creatinine of 0.8. Normal electrolytes. Serum bicarb is at 19. Overnight the testing was positive. ProBNP level was 222 and a troponin level is at 0.0 25. Inflammatory markers are still pending for now. He was started on Decadron. I'm going to start him also on Baricitinib. D-dimer is at 1.8. Elevation of 02/05/2021, the patient is being seen for a follow-up. The patient was seen in consultation yesterday. The patient was getting progressively more hypoxic and at the time of my evaluation in emergency the patient was 100% on a beta facemasks and 15 L of oxygen by nasal cannula. This morning, he is on Airvo at 60 L nasal cannula and the patient is on FiO2 of 90%. He is still wearing his 100% nonrebreather facemask. Chest x-ray showing diffuse bilateral pulmonary infiltrates, essentially unchanged compared to yesterday and this is consistent with a viral pneumonia. In terms of his pulse ox, is around 90%. Laying down comfortably in bed. Breathing is nonlabored at this point in time. D-dimer is at 3.33. The white cell count is at 2.2 with a hemoglobin of 14.4. He does have a component of anion gap metabolic acidosis with a gap of 18 and a serum bicarb of 17. Creatinine is at 0.7. LFTs are normal. LDH level is at 735. He is currently being treated with a combination of Decadron 6 mg twice a day and Baricitinib 4 mg by mouth daily. Doppler of the lower extremity has been negative for DVTs. Blood work shows ongoing lymphopenia, lymphocyte count is up to 0.34. Clinically, he looks a little bit lethargic yet arousable and follows commands and answers questions. He seems to be appropriate. Oral intake is quite diminished at this point in time as the patient is on Airvo in addition to 100% on a on nonrebreather facemask 02/06/2021, the patient has been transferred to the intensive care units. The patient is currently calm and comfortable. He is on 100% on a beta facemask and addition to high flow oxygen as well as Airvo at 60 L with an FiO2 of 90%. He was transferred to the intensive care unit yesterday for closer monitoring. His current pulse ox in the order of 86-91%. He is able to tolerate some diet. His chest x-ray from today is showing diffuse bilateral pulmonary infiltrates consistent with overnight he related pneumonia and infiltrate are essentially stable compared to yesterday without any significant interval change. No evidence of any pneumothorax. Lungs are adequately expanded for now. The patient is being treated with a combination of Decadron and Versed 7. He is receiving Decadron 6 mg twice a day and Baricitinib 4 mg by mouth daily per protocol. Doppler of the lower extremities have been essentially negative. On his blood work today, the patient has white cell count of 4.9 with a hemoglobin of 13.6, d-dimer is at 2.1, normal renal function, normal electrolytes, his LDH level is up to 1685 and his CRP level is down to 5.6. He is afebrile. Doppler of the lower extremities of been negative for DVT. The patient is hemodynamically stable. He is receiving IV fluids in the form of bicarb infusion at the rate of 75 mL an hour. This was added due to his underlying metabolic acidosis. His serum bicarb is 27 with gap of down to 6. As such, he will be placed on normal saline and the bicarb drip will be discontinued. 02/07/2021, the patient is essentially the same as yesterday. He remains on 100% fullface mask nonrebreather addition to a high flow Airvo system with a few of 60 L and FiO2 of 90%. He remains on a combination of Decadron and Baricitinib per protocol. Doppler of the lower extremity is a been negative. He is on Lovenox 40 mg subcu on a daily basis. In terms of his inflammatory mar kers, his LDH level is down to 1571, improved compared to yesterday and his CRP level is down to 3.3. Procal level was at 0.1. Chest x-ray is from yesterday showed covid 19 related pneumonia with some slight improvement in aeration in the right upper lobe. He is awake and alert and communicating. Blood work from today shows a white cell count of 10 with a hemoglobin of 13, d-dimer is up to 5.02, BUN is at 21 with a creatinine of 0.7. Obviously, his breathing is still labored. He feels that he is going to cough and his lungs are irritated. Nevertheless, is not bringing up any significant amount of sputum for the time being. No altered mentation. No diarrhea. No other complaints otherwise. 02/08/2021, patient remains in intensive care unit as the patient is being treated for his Covid 19 related pneumonia and hypoxic respiratory failure. The patient remains on high flow oxygen, Airvo with 60 L and FiO2 of 90%. The patient is also using on and off a nonrebreather facemask at 100%. He is able to maintain a saturation barely above 90%. He is short of breath with limited amount of activity. He is in bed most of the time. He is tolerating his diet. He remains on a combination of Decadron at a dose of 6 mg IV every 12 hours and he is also on Lovenox 40 mg subcu every 12 hours and the patient is also on Baricitinib per protocol. Based on most recent blood work, his d-dimer is up to 14.6. Note that I have already Doppler of his lower extremities and there were negative. His LDH level is slightly higher compared to yesterday is currently at 1747 and his CRP is at 2.5. Less and electrolytes are all within normal limits. Creatinine is normal. White cell count is at 10.3 with a hemoglobin of 12.5. I repeated the chest x-ray. The patient has a bullous emphysematous changes in the upper lobes more so on the right. Overall, the pulmonary infiltration essentially the same and unchanged compared to yesterday. I will say that his condition is essentially unchanged compared to yesterday the patient is still struggling with his oxygenation requiring high flow oxygen and a nonrebreather facemask. 02/09/2021, patient is essentially unchanged. Remains on Airvo at 60 L an FiO2 of 90% along with a nonrebreather facemask. Chest x-ray findings are essentiall y stable with diffuse bilateral pulmonary infiltrates, unchanged with daily comparison. He remains on a combination of Decadron and Baricitinib and the patient is also on Lovenox 40 mg subcu every 12 hours. Inflammatory markers from today was noted. There is a slight drop the LDH which is currently down to 1513. CRP is down to 1.8, and the d-dimer currently is at 13.9. No other significant events overnight. The patient continues to desaturate easily. No interval worsening shortness of breath. His condition is overall stable. We'll keep him on the same oxygen setting which is a Airvo at 60 L along with 100% nonrebreather facemask for now. He is tolerating his diet. No nausea. No v omiting. No altered mentation. She was given a dose of Lasix yesterday with excellent urine output and he has a negative fluid balance is. His IV fluids currently are KVO 02/10/2021, the patient's condition remains essentially unchanged. His condition is stable. He remains on high flow oxygen at 6 L with an FiO2 of 90% along with 100% nonrebreather facemask. Yesterday, while being transported to have a bowel movement, the patient desaturated and however following his saturation was able to overcome that his situation gradually improved and is currently above 90%. His white cell count is 14.8. His d-dimer is down to 10.9. The rest of the inflammatory markers are also improving and the patient has an LDH of 1395 and his CRP is down to 1.4. He remains on a combination of Decadron and Baricitinib. He is also on Lovenox for DVT prophylaxis. No other new complaints. No fever. He is tolerating his diet. No oropharyngeal candidiasis. Using incentive spirometer. No signs of any fluid overload. IV fluids are currently at KVO and the patient was given a dose of Lasix yesterday. Objective - Vital Signs Vital signs: Vital Signs Temp 97.9 F 02/10/21 00:00 Pulse 84 02/10/21 05:00 Resp 31 H 02/10/21 05:00 BP 113/70 02/10/21 05:00 Pulse Ox 93 L 02/10/21 05:00 Intake & Output 02/09/21 02/10/21 02/10/21 18:59 06:59 18:59 Intake Total 480 760 Output Total 2160 300 Balance -1680 460 Intake: Oral 480 760 Output: Urine 2160 300 Other: Voiding Method Urinal # Voids 1 - Exam Gen. appearance the patient is in mild degree of respiratory distress. Is able to speak up. Sentences. Currently is on Airvo 60 L an FiO2 of 90%, and I think the patient is also on 100% nonrebreather facemask addition to the Airvo system. Head exam was generally normal. There was no scleral icterus or corneal arcus. Mucous membranes were moist. Neck was supple and without jugular venous distension, thyromegaly, or carotid bruits. Carotids were easily palpable bilaterally. There was no adenopathy. Lungs sounds are diminished in the patient's crackles in the mid and lower lung talamantes bilaterally Cardiac exam revealed the PMI to be normally situated and sized. The rhythm was regular and no extrasystoles were noted during several minutes of auscultation. The first and second heart sounds were normal and physiologic splitting of the second heart sound was noted. There were no murmurs, rubs, clicks, or gallops. Abdominal exam revealed normal bowel sounds. The abdomen was soft, non-tender, and without masses, organomegaly, or appreciable enlargement of the abdominal aorta. Examination of the extremities revealed easily palpable radial, femoral and pedal pulses. There was no cyanosis, clubbing or edema. Examination of the skin revealed no evidence of significant rashes, suspicious appearing nevi or other concerning lesions. Neurologically, the patient is awake and alert and the patient does not have any focal neurological deficit. Cranial nerves are essentially intact. - Labs CBC & Chem 7: 02/10/21 04:41 02/10/21 04:41 Labs: Abnormal Lab Results - Last 24 Hours (Table) 02/10/21 02/10/21 02/10/21 Range/Units 04:41 04:41 04:41 WBC 14.8 H (3.8-10.6) k/uL Plt Count 521 H (150-450) k/uL Neutrophils # 12.9 H (1.3-7.7) k/uL Lymphocytes # 0.5 L (1.0-4.8) k/uL Monocytes # 1.3 H (0-1.0) k/uL D-Dimer 10.98 H (<0.60) mg/L FEU BUN 30 H (9-20) mg/dL Glucose 150 H (74-99) mg/dL Lactate Dehydrogenase 1395 H (313-618) U/L C-Reactive Protein 1.4 H (<1.0) mg/dL Assessment and Plan Plan: 1 acute COVID 19 related pneumonia with secondary respiratory failure. Currently on 100% nonrebreather facemask in addition to airvo 60 liters and 90% Fio2. Breathing remains mildly labored. . Chest x-ray showing diffuse bilateral pulmonary infiltrates consistent with COVID 19 related pneumonia. No interval worsening in his chest x-ray findings. On today's evaluation, no new changes in his condition. The inflammatory ma rkers including the Altace and CRP are declining. D-dimer is also lower. I would suggest continuing the same medication which includes a combination of Decadron 6 mg every 12 hours and Baricitinib. The patient remains on Lovenox for DVT prophylaxis. Chest x-ray findings are stable. Clinically the patient is stable. He is still desaturating with mobility and activity. Nevertheless, he recovers and clinically there is been no interval progression his condition. Chest x-ray still showing bilateral lower lobe pulmonary infiltrates worse on the left. 2 shortness of breath secondary to above 3 mild non-anion gap metabolic acidosis, improved with a bicarb infusion covered and the patient is currently on a normal saline infusion 4 hypertension Plan Keep the patient ICU for another 24 hours Continue Airvo 60 L an FiO2 of 90% and combination with a nonrebreather facemask, attempt to eliminate the nonrebreather facemask today. Continue Decadron 6 mg every 12 hours patient on Baricitinib per protocol Lovenox 40 mg subcu for DVT prophylaxis Multivitamin cocktail for COVID 19 related infections We'll continue to follow. We'll make further recommendations based on his progress. Down the IV fluids to KVO The patient received Lasix yesterday and he is a negative fluid balance of 2.3 L. He Keep the patient intensive care unit We'll continue to follow
--- NOTE | 2021-02-10 08:17 | XR ---
EXAMINATION TYPE: XR chest 1V portable DATE OF EXAM: 02/10/2021 COMPARISON: 02/09/2011 INDICATION: Covid TECHNIQUE: Single frontal view of the chest is obtained. FINDINGS: The heart size is normal. The pulmonary vasculature is normal. Increased lung infiltrates are present in the mid and lower lung talamantes greater on the left. Some chr onic changes may be in the right apex and along the left apex. IMPRESSION: 1. Findings compatible with atypical pneumonia. 2. Apical thickening present bilaterally may be more chronic. Underlying neoplasm is not excluded
[2021-02-10] MEDS: PANTOPRAZOLE 40 MG/10 ML VIAL IVP SCH ×2 (08:21→22:01)
[2021-02-10] MEDS: CHOLECALCIFEROL 25 MCG (1000 IU) TABLET PO SCH (08:21)
[2021-02-10] MEDS: dexAMETHasone 2 MG TAB PO SCH ×2 (08:22→22:01)
[2021-02-10] MEDS: ENOXAPARIN 40 MG/0.4 ML SYRINGE SQ SCH (08:22)
[2021-02-10] MEDS: ZINC SULFATE 220 MG CAP PO SCH (08:22)
[2021-02-10] MEDS: MULTIVITAMINS, THERA 1 EACH TAB PO SCH (08:22)
[2021-02-10] MEDS: ASCORBIC ACID 500 MG TAB PO SCH (08:22)
--- NOTE | 2021-02-10 08:27 | P.PN ---
Subjective Progress Note Date: 02/10/21 Progress Note Date: 02/10/21 HISTORY OF PRESENT ILLNESS: This is a 56-year-old male with a past medical history significant for hypertension and hypertensive cardiovascular disease, hyperlipidemia, history of tobacco use and dependence, presented to the emergency department at [facility] with increased coughing and increased shortness breath that started last and has been getting worse over the last few days, yesterday he was extremely short of breath and his oxygen saturation was in the low 70s, his tried to get him to the ER but eventually called 911 and the patient was brought into the ER at [facility] where he had a chest x-ray that did show evidence of bilateral patchy infiltrate suggestive of Covid pneumonia, his COVID-19 PCR was positive, patient was started on nonrebreather, and later on was seen in consultation by pulmonary medicine and he was placed on Airvo and was started on Bacitinib 4 mg po daily and the patient was admitted to the hospital for further evaluation and treatment. 02/05: A shunt is currently on AirVol. He has complained of feeling tired and complaining of gastric reflux. Protonix will be increased to 40 mg IV push twice daily. Patient is been seen by pulmonary medicine and started on Bar icitinib, continued on dexamethasone 6 mg twice daily, Lovenox 40 mg daily. He has been afebrile, heart rate 92, blood pressure 137/86, pulse ox 97%. Repeat blood work reveals WBC 2.2, d-dimer 3.33, blood sugar 143. LDH 735, C-reactive protein 15.5. Chest x-ray reveals chronic emphysematous and pulmonary fibrotic changes with bilateral multifocal reticular nodular opacities consistent with COVID-19. Perhaps slight improvement in the right lung base. Ultrasound of bilateral lower extremities negative for DVT. 02/06: Last evening, patient was transferred into the intensive care unit as he was on 15 L nonrebreather was transitioned over to AirVo 60 L 90% with nonrebreather on top. Pulse ox is currently running 84-87%. He has been afebrile, heart rate in the 80s and 90s, respiratory rate 29, blood pressure 131/82. Patient is requesting Cepacol lozenges and nasal spray added. Ensure 3 times daily also added, patient has decreased appetite and limited oral intake. Repeat blood work reveals WBC 4.9, hemoglobin 13.6. Platelet count 381. D- dimer 2.15. LDH 1685. C-reactive protein 5.6. Repeat chest x-ray revealed continue his Covid infiltrate superimposed on bollous emphysema. Slight improvement in aeration in the right upper lobe. Patient is continued on dexamethasone, Lovenox, vitamin supplements and Baricitinib. 02/07:patient remains in the intensive care unit. He is on nonrebreather mask as well as high flow AirVo with O2 at 60 L, FiO2 90%. patient remains afebrile, heart rate in the 70s, respiratory rate 26, blood pressure 127/79, pulse ox 86- 88%, pulse ox drops in the low 80s when patient ate's. He is on ensure 3 times daily. Patient is complaining of some cough and back pain when he coughs. He is less fatigued today. 02/08: Patient remains in intensive care unit currently on nonrebreather, as well as a high flow airflow oxygen still borderline at 89%, patient is eating his protein, hysterectomy 8 his breakfast, he has no chest pain at this time he continues to be extreme short of breath, he has no abdominal pain, he had lost some of the states, he has no headache, he has no hemoptysis, he has no pleurisy, he has no edema. 02/09: Patient sitting up in a chair his feeling a bit better. He continues to be on nonrebreather along with airflow 60 L, he denies any chest pain, his continues to be somewhat short of breath, he continues to struggle with breathing, has no abdominal pain, he had a good bowel movement yesterday, he is tolerating his food, patient is stable at this point in time, he will stay in the intensive care unit due to his oxygen requirement, chest x-ray showed bilateral diffuse infiltrate suggestive of Covid pneumonia, he continues to be on Decadron 6 mg orally twice every day, we'll continue conservative management continue supportive care continue Baricitinib daily for a total of 14 doses today is 08/10 02/10: Patient is feeling better today he continues to be on airVO and NRB, continues to require a lot of oxygen, sitting up and eating his breakfast, he has no chest pain, no pleurisy, he does competitive achiness in the back of his legs, he is current;y on Baricitinib Day #6 out of 14. REVIEW OF SYSTEMS: Constitutional: Denies fever, chills, night sweats. No weight change. positive for weakness, reports fatigue no lethargy. Reports daytime sleepiness. HEENT: No headache. No blurred vision or double vision, no loss of vision. No loss of Hearing, no ringing in the ears, no dizziness. No nasal drainage or congestion. No epistaxis. Reports sore throat. Lungs: positive for shortness of breath, positive for cough, positive for sputum production. positive for wheezing. Reports dyspnea with activity. Cardiovascular: No chest pain, no lower extremity edema. No palpitations. No paroxysmal nocturnal dyspnea. No orthopnea. No lightheadedness or dizziness. No syncopal episodes. Abdominal: Reports abdominal pain. No nausea, vomiting. No diarrhea. No constipation. No bloody or tarry stools reports loss of appetite. Reports gastric reflux. Genitourinary: No dysuria, increased frequency, urgency. No urinary retention. Musculoskeletal: positive for myalgias. positive for muscle weakness, no gait dysfunction, no frequent falls. No back pain. No neck pain. Integumentary: No wounds, no lesions. No rash or pruritus. No unusual bruising. No change in hair or nails. Neurologic: No aphasia. No facial droop. No change in mentation. No head injury. No headache. No paralysis. No paresthesia. Psychiatric: No depression. No anxiety. No mood swings. Endocrine: No abnormal blood sugars. No weight change. PHYSICAL EXAMINATION: General: 56-year-old male laying down in bed in moderate respiratory distress HEENT: Head is atraumatic, normocephalic, pupils were equal round reactive to light and recommendation, extraocular muscle movement were intact, sclera non icteric, conjunctivae were pale, mucous membranes of the mouth are dry. Neck: Supple, no JVP, normal carotid upstroke bilaterally, no lymphadenopathy. Chest: Decreased breath sounds at the bases, few rhonchi, moderate expiratory wheezes, no chest wall tenderness, positive for moderate intercostal r etractions. Heart: First heart sound is normal, second heart sounds normal, tachycardic there is no gallop or murmur. Abdomen: Soft, nontender, nondistended, positive bowel sounds, no hepatosplenomegaly. Extremities: There is no edema no calf tenderness DP +2 bilaterally. Neurologic examination: Patient is awake alert and oriented X 3, cranial nerves II-12 appear grossly intact, muscle power were 5 out of 5 in upper extremities and 5 out of 5 in bilateral lower extremities, deep tendon reflexes normal bilaterally. ASSESSMENT AND PLAN: 1. Acute hypoxemic respiratory failure due to bilateral patchy interstitial pneumonia due to COVID-19 pneumonia. Continue patient on Decadron 6 mg orally t wice every day, continue patient on Vitamin C 1000 mg orally once every day, continue zinc 220 mg once every day, continue vitamin D 1000 units once every day, continue with Baricitinib 4 mg orally once every day for 09/10 doses continue oxygen support currently on 100% nonrebreather and AirVo at 15 L, continue care in the intensive care unit. 2. Bilateral Covid pneumonia with ARDS. Continue with Airvo, continue dexamethasone 6 mg orally twice every day, continue with supportive care. 3. Mild non-anion gap metabolic acidosis. Resolved. 4. Moderate 14-calorie malnutrition secondary to decreased appetite and difficulty eating with oxygen mask. Ensure 3 times daily. 5. DVT prophylaxis. Continue Lovenox 40 mg subcutaneously every 24 hours 6. GERD and GI prophylaxis. Continue patient on Protonix 40 mg IV push every 12 hours as well as Carafate 1 g orally twice every day . 7. Patient is full code. Objective - Vital Signs Vital signs: Vital Signs Temp 97.9 F 02/10/21 00:00 Pulse 68 02/10/21 07:00 Resp 18 02/10/21 07:00 BP 126/76 02/10/21 07:00 Pulse Ox 92 L 02/10/21 07:00 Intake & Output 02/09/21 02/10/21 02/10/21 18:59 06:59 18:59 Intake Total 480 960 Output Total 2160 440 150 Balance -1680 520 -150 Intake: Oral 480 960 Output: Urine 2160 440 150 Other: Voiding Method Urinal # Voids 1 - Labs CBC & Chem 7: 02/10/21 04:41 02/10/21 04:41 Labs: Abnormal Lab Results - Last 24 Hours (Table) 02/10/21 02/10/21 02/10/21 Range/Units 04:41 04:41 04:41 WBC 14.8 H (3.8-10.6) k/uL Plt Count 521 H (150-450) k/uL Neutrophils # 12.9 H (1.3-7.7) k/uL Lymphocytes # 0.5 L (1.0-4.8) k/uL Monocytes # 1.3 H (0-1.0) k/uL D-Dimer 10.98 H (<0.60) mg/L FEU BUN 30 H (9-20) mg/dL Glucose 150 H (74-99) mg/dL Lactate Dehydrogenase 1395 H (313-618) U/L C-Reactive Protein 1.4 H (<1.0) mg/dL
[2021-02-10] MEDS: BARICITINIB 2 MG TABLET PO SCH (15:42)
[2021-02-10] MEDS ORDERED: SODIUM CHLORIDE 0.65% NASAL SPRAY 44 ML BTL NASAL PRN (18:01)
[2021-02-10] MEDS: SODIUM CHLORIDE 0.65% NASAL SPRAY 44 ML BTL NASAL PRN (22:02)
[2021-02-11 07:07] LABS: HCT 39.6 % (39.0-53.0); HGB 13.9 gm/dL (13.0-17.5); MCH 32.2 pg (25.0-35.0); MCHC 35.2 g/dL (31.0-37.0); MCV 91.4 fL (80.0-100.0); Mean Platelet Volume 8.1; Platelet Count 450 k/uL (150-450); RBC 4.33 m/uL (4.30-5.90); RDW 13.7 % (11.5-15.5); WBC 15.5 k/uL (3.8-10.6)
[2021-02-11 07:38] LABS: ALT 45 U/L (4-49); AST 26 U/L (17-59); African American GFR (CKD) >90 (>60 ml/min/1.73 sqM); Albumin 3.3 g/dL (3.5-5.0); Alkaline Phosphatase 83 U/L (38-126); Anion Gap 11 mmol/L; Blood Urea Nitrogen 27 mg/dL (9-20); Carbon Dioxide 22 mmol/L (22-30); Chloride 104 mmol/L (98-107); Glucose 145 mg/dL (74-99); Non-African American GFR(CKD) >90 (>60 ml/min/1.73 sqM); Potassium 4.6 mmol/L (3.5-5.1); Sodium 137 mmol/L (137-145); Total Bilirubin 0.4 mg/dL (0.2-1.3)
[2021-02-11] MEDS: SODIUM CHLORIDE 0.9% 1,000 ML IV SCH (07:44)
[2021-02-11 08:24] LABS: Band Neutrophils % 2 %; Lymphocytes # (M) 0.62 k/uL (1.0-4.8); Metamyelocytes # (M) 0.16 k/uL (0); Metamyelocytes % 1 %; Monocytes # (M) 1.55 k/uL (0-1.0); Neutrophils % (M) 84 %; Nucleated Red Blood Cells 0 /100 WBC (0-0); Total Cells Counted 200
--- NOTE | 2021-02-11 08:39 | P.PN ---
Subjective Progress Note Date: 02/11/21 HISTORY OF PRESENT ILLNESS: This is a 56-year-old male with a past medical history significant for hypertension and hypertensive cardiovascular disease, hyperlipidemia, history of tobacco use and dependence, presented to the emergency department at [facility] with increased coughing and increased shortness breath that started last and has been getting worse over the last few days, yesterday he was extremely short of breath and his oxygen saturation was in the low 70s, his tried to get him to the ER but eventually called 911 and the patient was brought into the ER at [facility] where he had a chest x-ray that did show evidence of bilateral patchy infiltrate suggestive of Covid pneumonia, his COVID-19 PCR was positive, patient was started on nonrebreather, and later on was seen in consultation by pulmonary medicine and he was placed on Airvo and was started on Bacitinib 4 mg po daily and the patient was admitted to the hospital for further evaluation and treatment. 02/05: A shunt is currently on AirVol. He has complained of feeling tired and complaining of gastric reflux. Protonix will be increased to 40 mg IV push twice daily. Patient is been seen by pulmonary medicine and started on Baricitinib, continued on dexamethasone 6 mg twice daily, Lovenox 40 mg daily. He has been afebrile, heart rate 92, blood pressure 137/86, pulse ox 97%. Rep eat blood work reveals WBC 2.2, d-dimer 3.33, blood sugar 143. LDH 735, C- reactive protein 15.5. Chest x-ray reveals chronic emphysematous and pulmonary fibrotic changes with bilateral multifocal reticular nodular opacities consistent with COVID-19. Perhaps slight improvement in the right lung base. Ultrasound of bilateral lower extremities negative for DVT. 02/06: Last evening, patient was transferred into the intensive care unit as he was on 15 L nonrebreather was transitioned over to AirVo 60 L 90% with nonrebreather on top. Pulse ox is currently running 84-87%. He has been afebrile, heart rate in the 80s and 90s, respiratory rate 29, blood pressure 131/82. Patient is requesting Cepacol lozenges and nasal spray added. Ensure 3 times daily also added, patient has decreased appetite and limited oral intake. Repeat blood work reveals WBC 4.9, hemoglobin 13.6. Platelet count 381. D- dimer 2.15. LDH 1685. C-reactive protein 5.6. Repeat chest x-ray revealed continue his Covid infiltrate superimposed on bollous emphysema. Slight improvement in aeration in the right upper lobe. Patient is continued on dexamethasone, Lovenox, vitamin supplements and Baricitinib. 02/07:patient remains in the intensive care unit. He is on nonrebreather mask as well as high flow AirVo with O2 at 60 L, FiO2 90%. patient remains afebrile, heart rate in the 70s, respiratory rate 26, blood pressure 127/79, pulse ox 86- 88%, pulse ox drops in the low 80s when patient ate's. He is on ensure 3 times daily. Patient is complaining of some cough and back pain when he coughs. He is less fatigued today. 02/08: Patient remains in intensive care unit currently on nonrebreather, as well as a high flow airflow oxygen still borderline at 89%, patient is eating his protein, hysterectomy 8 his breakfast, he has no chest pain at this time he continues to be extreme short of breath, he has no abdominal pain, he had lost some of the states, he has no headache, he has no hemoptysis, he has no pleurisy, he has no edema. 02/09: Patient sitting up in a chair his feeling a bit better. He continues to be on nonrebreather along with airflow 60 L, he denies any chest pain, his continues to be somewhat short of breath, he continues to struggle with breathing, has no abdominal pain, he had a good bowel movement yesterday, he is tolerating his food, patient is stable at this point in time, he will stay in the intensive care unit due to his oxygen requirement, chest x-ray showed bilateral diffuse infiltrate suggestive of Covid pneumonia, he continues to be on Decadron 6 mg orally twice every day, we'll continue conservative management continue supportive care continue Baricitinib daily for a total of 14 doses today is 08/10 02/10: Patient is feeling better today he continues to be on airVO and NRB, continues to require a lot of oxygen, sitting up and eating his breakfast, he has no chest pain, no pleurisy, he does competitive achiness in the back of his legs, he is current;y on Baricitinib Day #6 out of 14. 02/11: Patient is seen today in the ICU. He is on AirVo had 90% 60 L and nonrebreather is used as needed. Patient is more mobile in his room. He has been afebrile, heart rate 81 and 96, blood pressure 127/72 area pulse ox 87-95%. Repeat blood work reveals WBC 15.5. Electrolytes normal. BUN 27 creatinine 0.84. Blood sugar 145. Liver function tests were normal. Patient is on regular diet and protein supplements. He is continued on Baricitinib, oral dexamethasone, Lovenox and supplements. REVIEW OF SYSTEMS: Constitutional: Denies fever, chills, night sweats. No weight change. positive for weakness, reports fatigue no lethargy. Reports daytime sleepiness. HEENT: No headache. No nasal drainage or congestion. No epistaxis. Reports sore throat. Lungs: positive for shortness of breath, positive for cough, positive for sputum production. positive for wheezing. Reports dyspnea with activity. Cardiovascular: No chest pain, no lower extremity edema. No palpitations. No paroxysmal nocturnal dyspnea. No orthopnea. No lightheadedness or dizziness. No syncopal episodes. Abdominal: Reports abdominal pain. No nausea, vomiting. No diarrhea. No c onstipation. No bloody or tarry stools. Reports loss of appetite. Reports gastric reflux. Genitourinary: No dysuria, increased frequency, urgency. No urinary retention. Musculoskeletal: positive for myalgias. positive for muscle weakness, no gait dysfunction, no frequent falls. No back pain. No neck pain. Integumentary: No wounds, no lesions. No rash or pruritus. No unusual bruising. No change in hair or nails. Neurologic: No aphasia. No facial droop. No change in mentation. No head injury. No headache. No paralysis. No paresthesia. Psychiatric: No depression. No anxiety. No mood swings. Endocrine: No abnormal blood sugars. No weight change. PHYSICAL EXAMINATION: General: 56-year-old male laying down in bed in minimal respiratory distress HEENT: Head is atraumatic, normocephalic, pupils were equal round reactive to light and recommendation, extraocular muscle movement were intact, sclera nonicteric, conjunctivae were pale, mucous membranes of the mouth are dry. Neck: Supple, no JVP, normal carotid upstroke bilaterally, no lymphadenopathy. Chest: Decreased breath sounds at the bases, few rhonchi, moderate expiratory wheezes, no chest wall tenderness, positive for moderate intercostal retractions. Heart: First heart sound is normal, second heart sounds normal, there is no gallop or murmur. Abdomen: Soft, nontender, nondistended, positive bowel sounds, no hepatosplenomegaly. Extremities: There is no edema no calf tenderness DP +2 bilaterally. Neurologic examination: Patient is awake alert and oriented X 3, cranial nerves II-12 appear grossly intact, muscle power were 5 out of 5 in upper extremities and 5 out of 5 in bilateral lower extremities, deep tendon reflexes normal bilaterally. ASSESSMENT AND PLAN: 1. Acute hypoxemic respiratory failure due to bilateral patchy interstitial pneumonia due to COVID-19 pneumonia. Continue patient on Decadron 6 mg orally twice every day, continue patient on Vitamin C 1000 mg orally once every day, continue zinc 220 mg once every day, continue vitamin D 1000 units once every day, continue with Baricitinib 4 mg orally once every day for 14 doses continue oxygen support currently on 100% nonrebreather and AirVo, continue care in the intensive care unit. 2. Bilateral Covid pneumonia with ARDS. Continue with Airvo, continue dexamethasone 6 mg orally twice every day, continue with supportive care. 3. Mild non-anion gap metabolic acidosis. Resolved. 4. Moderate 14-calorie malnutrition secondary to decreased appetite and difficulty eating with oxygen mask. Ensure 3 times daily. 5. DVT prophylaxis. Continue Lovenox 40 mg subcutaneously every 24 hours 6. GERD and GI prophylaxis. Continue patient on Protonix 40 mg IV push every 12 hours as well as Carafate 1 g orally twice every day . 7. Patient is full code. Impression and plan of care have been directed as dictated by the signing physician. Viridiana Baker nurse practitioner acting as scribe for signing physician. Objective - Vital Signs Vital signs: Vital Signs Temp 98.2 F 02/11/21 04:00 Pulse 81 02/11/21 07:00 Resp 17 02/11/21 07:00 BP 127/72 02/11/21 07:00 Pulse Ox 95 02/11/21 07:00 Intake & Output 02/10/21 02/11/21 02/11/21 18:59 06:59 18:59 Intake Total 960 550 Output Total 600 660 0 Balance 360 -110 0 Weight 82 kg Intake: Oral 960 550 Output: Urine 600 660 0 Other: Voiding Method Urinal # Bowel Movements 1 - Labs CBC & Chem 7: 02/11/21 06:18 02/11/21 06:18 Labs: Abnormal Lab Results - Last 24 Hours (Table) 02/11/21 02/11/21 Range/Units 06:18 06:18 WBC 15.5 H (3.8-10.6) k/uL BUN 27 H (9-20) mg/dL Glucose 145 H (74-99) mg/dL Total Protein 6.0 L (6.3-8.2) g/dL Albumin 3.3 L (3.5-5.0) g/dL
[2021-02-11] MEDS: dexAMETHasone 2 MG TAB PO SCH ×2 (08:55→20:32)
[2021-02-11] MEDS: ASCORBIC ACID 500 MG TAB PO SCH (08:55)
[2021-02-11] MEDS: PANTOPRAZOLE 40 MG/10 ML VIAL IVP SCH (08:55)
[2021-02-11] MEDS: ENOXAPARIN 40 MG/0.4 ML SYRINGE SQ SCH ×2 (08:56→20:32)
[2021-02-11] MEDS: SUCRALFATE 1 GM TAB PO SCH (08:56)
[2021-02-11] MEDS: ZINC SULFATE 220 MG CAP PO SCH (08:56)
[2021-02-11] MEDS: CHOLECALCIFEROL 25 MCG (1000 IU) TABLET PO SCH (08:56)
[2021-02-11] MEDS: MULTIVITAMINS, THERA 1 EACH TAB PO SCH (08:56)
--- NOTE | 2021-02-11 11:40 | P.PN ---
Subjective Progress Note Date: 02/11/21 Principal diagnosis: Acute hypoxic respiratory failure secondary to COVID-19 pneumonia 02/09/2021, patient is essentially unchanged. Remains on Airvo at 60 L an FiO2 of 90% along with a nonrebreather facemask. Chest x-ray findings are essentially stable with diffuse bilateral pulmonary infiltrates, unchanged with daily comparison. He remains on a combination of Decadron and Baricitinib and the patient is also on Lovenox 40 mg subcu every 12 hours. Inflammatory markers from today was noted. There is a slight drop the LDH which is currently down to 1513. CRP is down to 1.8, and the d-dimer currently is at 13.9. No other significant events overnight. The patient continues to desaturate easily. No interval worsening shortness of breath. His condition is overall stable. We'll keep him on the same oxygen setting which is a Airvo at 60 L along with 100% nonrebreather facemask for now. He is tolerating his diet. No nausea. No vomiting. No altered mentation. She was given a dose of Lasix yesterday with excellent urine output and he has a negative fluid balance is. His IV fluids currently are KVO 02/10/2021, the patient's condition remains essentially unchanged. His condition is stable. He remains on high flow oxygen at 6 L with an FiO2 of 90% along with 100% nonrebreather facemask. Yesterday, while being transported to have a bowel movement, the patient desaturated and however following his saturation was able to overcome that his situation gradually improved and is currently above 90%. His white cell count is 14.8. His d-dimer is down to 10.9. The rest of the inflammatory markers are also improving and the patient has an LDH of 1395 and his CRP is down to 1.4. He remains on a combination of Decadron and Baricitinib. He is also on Lovenox for DVT prophylaxis. No other new complaints. No fever. He is tolerating his diet. No oropharyngeal candidiasis. Using incentive spirometer. No signs of any fluid overload. IV fluids are currently at KVO and the patient was given a dose of Lasix yesterday. 02/11/2021, patient remains in the ICU, remains on airvo, and 60% slow and 90% FiO2, his IV fluid is at KVO, patient remains marginal and his O2 saturation is barely in the low 90s. Patient tells me that his feeling better today, breathing easier. D-dimer was noted to be elevated, hence I recommended a CT angiogram of the chest, mostly because of the findings on the chest x-ray did not correlate with his profound degree of hypoxia and desaturation. WBC count today is 15.5 hemoglobin 13.9. D-dimer today is 10.98 electrolytes are normal renal profile is normal, in the meantime I'm going to recommend that we increase the dose of Lovenox. Venous Doppler on 02/05 was negative for deep vein thrombosis. Objective - Vital Signs Vital signs: Vital Signs Temp 98.2 F 02/11/21 04:00 Pulse 95 02/11/21 11:00 Resp 30 H 02/11/21 11:00 BP 140/88 02/11/21 11:00 Pulse Ox 91 L 02/11/21 11:00 Intake & Output 02/10/21 02/11/21 02/11/21 18:59 06:59 18:59 Intake Total 960 550 550 Output Total 600 660 250 Balance 360 -110 300 Weight 82 kg Intake: Oral 960 550 550 Output: Urine 600 660 250 Other: Voiding Method Urinal Urinal # Bowel Movements 1 - Exam Physical Exam: Revealed a 56-year-old white male in no distress, Head: Atraumatic, normocephalic. HEENT:[Neck is supple.] [No neck masses.] [No thyromegaly.] [No JVD.] Lexi, EOMI, nonicteric, Chest: [Symmetrical chest expansion, crackles at the bases. No rhonchi no wheezes. Cardiac Exam: [Normal S1 and S2, no S3 gallop, no murmur.] Abdomen: [Soft, nontender, no megaly, no rebound, no guarding, normal bowel sounds.] Extremities: [No clubbing, no edema, no cyanosis.] Neurological Exam: Alert and oriented 3. [No focal neurologic deficit.] Psychiatric: Normal mood affect, normal mental status. - Labs CBC & Chem 7: 02/11/21 06:18 02/11/21 06:18 Labs: Abnormal Lab Results - Last 24 Hours (Table) 02/11/21 02/11/21 Range/Units 06:18 06:18 WBC 15.5 H (3.8-10.6) k/uL Neutrophils # (Manual) 13.30 H (1.3-7.7) k/uL Lymphocytes # (Manual) 0.62 L (1.0-4.8) k/uL Monocytes # (Manual) 1.55 H (0-1.0) k/uL Metamyelocytes # (Man) 0.16 H (0) k/uL BUN 27 H (9-20) mg/dL Glucose 145 H (74-99) mg/dL Total Protein 6.0 L (6.3-8.2) g/dL Albumin 3.3 L (3.5-5.0) g/dL Assessment and Plan Assessment: Acute hypoxic respiratory failure secondary to COVID-19 pneumonia Elevated inflammatory markers and d-dimer secondary to COVID-19 [place]/infection. Benign essential hypertension. Recommendation: Continue to monitor in the ICU. Continue high flow oxygen and titrate accordingly Continue Decadron 6 mg IV push every 12 hours Continue baricitinib Continue to monitor inflammatory markers Continue Lovenox at 40 mg subcu every [address] angiogram of the chest. We will continue to follow closely. Critical care time is over 30 minutes Time with Patient: Greater than 30
--- NOTE | 2021-02-11 11:54 | CT ---
CT CHEST FOR PULMONARY EMBOLISM. EXAMINATION TYPE: CT chest angio for PE DATE OF EXAM: 02/11/2021 INDICATION: Shortness of breath CT DLP: 287.2 mGycm, Automated exposure control for dose reduction was used. CONTRAST: Patient injected with 69 mL of Isovue 370. COMPARISON: None TECHNIQUE: CT of the chest is performed on a spiral scan at 2 mm thick sections. Study is performed with intravenous contrast timed for evaluation for pulmonary embolism. This will limit additional po rtions of the evaluation. 3-D MIP images reconstructed by the technologist are reviewed on the compu ter in the coronal and sagittal planes. FINDINGS: No persistent filling defects are evident to suggest an acute pulmonary embolism. No mediastinal or hilar adenopathy enlarged by CT criteria is evident. The ascending aorta diameter at the level of the main pulmonary artery is 3.2 cm. The main pulmonary artery diameter at the bifur cation is 3.1 cm. Small pericardial effusion is present. Extensive emphysematous changes are present. Honeycombing and pulmonary fibrosis should also be consi dered. There may be some scarring or postsurgical change at the right apex. Couple calcified granulom ludwig are likely within the lateral right upper lung field. Limited CT section through the upper abdomen are unremarkable. IMPRESSIONS: 1. No acute pulmonary embolism. 2. Small pericardial effusion. 3. Extensive emphysematous changes and/or pulmonary fibrosis.
[2021-02-11] MEDS: BARICITINIB 2 MG TABLET PO SCH (16:10)
[2021-02-11] MEDS: PANTOPRAZOLE 40 MG TABLET PO SCH (16:33)
[2021-02-12 05:37] LABS: HGB 14.1 gm/dL (13.0-17.5); MCH 32.7 pg (25.0-35.0); MCHC 35.2 g/dL (31.0-37.0); Mean Platelet Volume 8.5; Platelet Count 465 k/uL (150-450); RDW 13.8 % (11.5-15.5); WBC 14.2 k/uL (3.8-10.6)
[2021-02-12 05:50] LABS: ALT 71 U/L (4-49); AST 45 U/L (17-59); African American GFR (CKD) >90 (>60 ml/min/1.73 sqM); Albumin 3.3 g/dL (3.5-5.0); Alkaline Phosphatase 88 U/L (38-126); Anion Gap 9 mmol/L; Blood Urea Nitrogen 29 mg/dL (9-20); Calcium 9.1 mg/dL (8.4-10.2); Carbon Dioxide 23 mmol/L (22-30); Chloride 105 mmol/L (98-107); Glucose 142 mg/dL (74-99); Non-African American GFR(CKD) >90 (>60 ml/min/1.73 sqM); Potassium 4.6 mmol/L (3.5-5.1); Sodium 137 mmol/L (137-145); Total Bilirubin 0.4 mg/dL (0.2-1.3); Total Protein 5.9 g/dL (6.3-8.2)
[2021-02-12] MEDS: PANTOPRAZOLE 40 MG TABLET PO SCH ×2 (06:30→17:00)
[2021-02-12] MEDS: CHOLECALCIFEROL 25 MCG (1000 IU) TABLET PO SCH (08:07)
[2021-02-12] MEDS: ZINC SULFATE 220 MG CAP PO SCH (08:07)
[2021-02-12] MEDS: MULTIVITAMINS, THERA 1 EACH TAB PO SCH (08:07)
[2021-02-12] MEDS: ASCORBIC ACID 500 MG TAB PO SCH (08:08)
[2021-02-12] MEDS: ENOXAPARIN 40 MG/0.4 ML SYRINGE SQ SCH ×2 (08:08→20:08)
[2021-02-12] MEDS: dexAMETHasone 2 MG TAB PO SCH ×2 (08:08→20:08)
[2021-02-12 09:39] LABS: Band Neutrophils % 3 %; Lymphocytes # (M) 0.99 k/uL (1.0-4.8); Metamyelocytes # (M) 0.14 k/uL (0); Metamyelocytes % 1 %; Monocytes # (M) 0.71 k/uL (0-1.0); Myelocytes # (M) 0.14 k/uL (0); Myelocytes % 1 %; Neutrophils % (M) 85 %; Nucleated Red Blood Cells 0 /100 WBC (0-0); Total Cells Counted 200
--- NOTE | 2021-02-12 11:05 | P.PN ---
Subjective Progress Note Date: 02/12/21 HISTORY OF PRESENT ILLNESS: This is a 56-year-old male with a past medical history significant for hypertension and hypertensive cardiovascular disease, hyperlipidemia, history of tobacco use and dependence, presented to the emergency department at [facility] with increased coughing and increased shortness breath that started last and has been getting worse over the last few days, yesterday he was extremely short of breath and his oxygen saturation was in the low 70s, his tried to get him to the ER but eventually called 911 and the patient was brought into the ER at [facility] where he had a chest x-ray that did show evidence of bilateral patchy infiltrate suggestive of Covid pneumonia, his COVID-19 PCR was positive, patient was started on nonrebreather, and later on was seen in consultation by pulmonary medicine and he was placed on Airvo and was started on Bacitinib 4 mg po daily and the patient was admitted to the hospital for further evaluation and treatment. 02/05: A shunt is currently on AirVol. He has complained of feeling tired and complaining of gastric reflux. Protonix will be increased to 40 mg IV push twice daily. Patient is been seen by pulmonary medicine and started on Baricitinib, continued on dexamethasone 6 mg twice daily, Lovenox 40 mg daily. He has been afebrile, heart rate 92, blood pressure 137/86, pulse ox 97%. Rep eat blood work reveals WBC 2.2, d-dimer 3.33, blood sugar 143. LDH 735, C- reactive protein 15.5. Chest x-ray reveals chronic emphysematous and pulmonary fibrotic changes with bilateral multifocal reticular nodular opacities consistent with COVID-19. Perhaps slight improvement in the right lung base. Ultrasound of bilateral lower extremities negative for DVT. 02/06: Last evening, patient was transferred into the intensive care unit as he was on 15 L nonrebreather was transitioned over to AirVo 60 L 90% with nonrebreather on top. Pulse ox is currently running 84-87%. He has been afebrile, heart rate in the 80s and 90s, respiratory rate 29, blood pressure 131/82. Patient is requesting Cepacol lozenges and nasal spray added. Ensure 3 times daily also added, patient has decreased appetite and limited oral intake. Repeat blood work reveals WBC 4.9, hemoglobin 13.6. Platelet count 381. D- dimer 2.15. LDH 1685. C-reactive protein 5.6. Repeat chest x-ray revealed continue his Covid infiltrate superimposed on bollous emphysema. Slight improvement in aeration in the right upper lobe. Patient is continued on dexamethasone, Lovenox, vitamin supplements and Baricitinib. 02/07:patient remains in the intensive care unit. He is on nonrebreather mask as well as high flow AirVo with O2 at 60 L, FiO2 90%. patient remains afebrile, heart rate in the 70s, respiratory rate 26, blood pressure 127/79, pulse ox 86- 88%, pulse ox drops in the low 80s when patient ate's. He is on ensure 3 times daily. Patient is complaining of some cough and back pain when he coughs. He is less fatigued today. 02/08: Patient remains in intensive care unit currently on nonrebreather, as well as a high flow airflow oxygen still borderline at 89%, patient is eating his protein, hysterectomy 8 his breakfast, he has no chest pain at this time he continues to be extreme short of breath, he has no abdominal pain, he had lost some of the states, he has no headache, he has no hemoptysis, he has no pleurisy, he has no edema. 02/09: Patient sitting up in a chair his feeling a bit better. He continues to be on nonrebreather along with airflow 60 L, he denies any chest pain, his continues to be somewhat short of breath, he continues to struggle with breathing, has no abdominal pain, he had a good bowel movement yesterday, he is tolerating his food, patient is stable at this point in time, he will stay in the intensive care unit due to his oxygen requirement, chest x-ray showed bilateral diffuse infiltrate suggestive of Covid pneumonia, he continues to be on Decadron 6 mg orally twice every day, we'll continue conservative management continue supportive care continue Baricitinib daily for a total of 14 doses today is 08/10 02/10: Patient is feeling better today he continues to be on airVO and NRB, continues to require a lot of oxygen, sitting up and eating his breakfast, he has no chest pain, no pleurisy, he does competitive achiness in the back of his legs, he is current;y on Baricitinib Day #6 out of 14. 02/11: Patient is seen today in the ICU. He is on AirVo had 90% 60 L and nonrebreather is used as needed. Patient is more mobile in his room. He has been afebrile, heart rate 81 and 96, blood pressure 127/72 area pulse ox 87-95%. Repeat blood work reveals WBC 15.5. Electrolytes normal. BUN 27 creatinine 0.84. Blood sugar 145. Liver function tests were normal. Patient is on regular diet and protein supplements. He is continued on Baricitinib, oral dexamethasone, Lovenox and supplements. 02/12: Patient remains in intensive care unit. He is on AirVo plus no nrebreather but he is keeping NRB in place except for oral intake. He has been afebrile, heart rate 89, respiratory rate 23-30, blood pressure 132/75, pulse ox 90%. CTA of the chest showed no pulmonary embolism. Small pericardial effusion. Extensive emphysematous changes and/or pulmonary fibrosis. Patient is on regular diet and protein supplements. No vomiting or diarrhea. WBC 14.2. Creatinine 0.76. Blood sugar 142. ALT 71. REVIEW OF SYSTEMS: Constitutional: Denies fever, chills, night sweats. No weight change. positive for weakness, reports fatigue no lethargy. Reports daytime sleepiness. HEENT: No headache. No nasal drainage or congestion. No epistaxis. Reports sore throat. Lungs: positive for shortness of breath, positive for cough, positive for sputum production. positive for wheezing. Reports dyspnea with activity. Cardiovascular: No chest pain, no lower extremity edema. No palpitations. No paroxysmal nocturnal dyspnea. No orthopnea. No lightheadedness or dizziness. No syncopal episodes. Abdominal: denies abdominal pain. No nausea, vomiting. No diarrhea. No constipation. No bloody or tarry stools. Reports loss of appetite. Reports gastric reflux. Genitourinary: No dysuria, increased frequency, urgency. No urinary retention. Musculoskeletal: positive for myalgias. positive for muscle weakness, no gait dysfunction, no frequent falls. No back pain. No neck pain. Integumentary: No wounds, no lesions. No rash or pruritus. No unusual bruisi ng. No change in hair or nails. Neurologic: No aphasia. No facial droop. No change in mentation. No head injury. No headache. No paralysis. No paresthesia. Psychiatric: No depression. No anxiety. No mood swings. Endocrine: No abnormal blood sugars. No weight change. PHYSICAL EXAMINATION: General: 56-year-old male laying down in bed in no respiratory distress HEENT: Head is atraumatic, normocephalic, pupils were equal round, sclera nonicteric, conjunctivae were pale, mucous membranes of the mouth are slightly dry. Neck: Supple, no JVP, normal carotid upstroke bilaterally, no lymphadenopathy. Chest: Decreased breath sounds at the bases, few rhonchi, moderate expiratory wheezes, no chest wall tenderness, positive for moderate intercostal retractions. Heart: First heart sound is normal, second heart sounds normal, there is no gallop or murmur. Abdomen: Soft, nontender, nondistended, positive bowel sounds, no hepatosplenomegaly. Extremities: There is no edema no calf tenderness DP +2 bilaterally. Neurologic examination: Patient is awake alert and oriented X 3, cranial nerves II-12 appear grossly intact, muscle power were 5 out of 5 in upper extremities and 5 out of 5 in bilateral lower extremities. ASSESSMENT AND PLAN: 1. Acute hypoxemic respiratory failure due to bilateral patchy interstitial pneumonia due to COVID-19 pneumonia. Continue patient on Decadron 6 mg orally twice every day, Vitamin C 1000 mg orally once every day, zinc 220 mg once every day, vitamin D 1000 units once every day, Baricitinib 4 mg orally once every day for 14 doses continue oxygen support currently on 100% nonrebreather and AirVo, continue care in the intensive care unit. 2. Bilateral Covid pneumonia with ARDS. Continue with Airvo, continue dexamethasone 6 mg orally twice every day, continue with supportive care. 3. Mild non-anion gap metabolic acidosis. Resolved. 4. Moderate 14-calorie malnutrition secondary to decreased appetite and difficulty eating with oxygen mask. Ensure 3 times daily. 5. DVT prophylaxis. Continue Lovenox 40 mg subcutaneously every 24 hours 6. GERD and GI prophylaxis. Continue patient on Protonix 40 mg IV push every 12 hours as well as Carafate 1 g orally twice every day . 7. Patient is full code. Impression and plan of care have been directed as dictated by the signing physician. Viridiana Baker nurse practitioner acting as scribe for signing physician. Objective - Vital Signs Vital signs: Vital Signs Temp 97.8 F 02/12/21 04:00 Pulse 89 02/12/21 07:00 Resp 30 H 02/12/21 07:00 BP 132/75 02/12/21 07:00 Pulse Ox 90 L 02/12/21 07:00 Intake & Output 02/11/21 02/12/21 02/12/21 18:59 06:59 18:59 Intake Total 1150 690 Output Total 1350 800 0 Balance -200 -110 0 Weight 82 kg 81.5 kg Intake: Oral 1150 690 Output: Urine 1350 800 0 Other: Voiding Method Urinal Urinal # Voids 1 # Bowel Movements 1 1 - Labs CBC & Chem 7: 02/12/21 04:27 02/12/21 04:27 Labs: Abnormal Lab Results - Last 24 Hours (Table) 02/11/21 02/12/21 02/12/21 Range/Units 06:18 04:27 04:27 WBC 14.2 H (3.8-10.6) k/uL Plt Count 465 H (150-450) k/uL Neutrophils # (Manual) 13.30 H (1.3-7.7) k/uL Lymphocytes # (Manual) 0.62 L (1.0-4.8) k/uL Monocytes # (Manual) 1.55 H (0-1.0) k/uL Metamyelocytes # (Man) 0.16 H (0) k/uL BUN 29 H (9-20) mg/dL Glucose 142 H (74-99) mg/dL ALT 71 H (4-49) U/L Total Protein 5.9 L (6.3-8.2) g/dL Albumin 3.3 L (3.5-5.0) g/dL
--- NOTE | 2021-02-12 11:37 | P.PN ---
Subjective Progress Note Date: 02/12/21 Principal diagnosis: Acute hypoxic respiratory failure secondary to COVID-19 pneumonia 02/09/2021, patient is essentially unchanged. Remains on Airvo at 60 L an FiO2 of 90% along with a nonrebreather facemask. Chest x-ray findings are essentially stable with diffuse bilateral pulmonary infiltrates, unchanged with daily comparison. He remains on a combination of Decadron and Baricitinib and the patient is also on Lovenox 40 mg subcu every 12 hours. Inflammatory markers from today was noted. There is a slight drop the LDH which is currently down to 1513. CRP is down to 1.8, and the d-dimer currently is at 13.9. No other significant events overnight. The patient continues to desaturate easily. No interval worsening shortness of breath. His condition is overall stable. We'll keep him on the same oxygen setting which is a Airvo at 60 L along with 100% nonrebreather facemask for now. He is tolerating his diet. No nausea. No vomiting. No altered mentation. She was given a dose of Lasix yesterday with excellent urine output and he has a negative fluid balance is. His IV fluids currently are KVO 02/10/2021, the patient's condition remains essentially unchanged. His condition is stable. He remains on high flow oxygen at 6 L with an FiO2 of 90% along with 100% nonrebreather facemask. Yesterday, while being transported to have a bowel movement, the patient desaturated and however following his saturation was able to overcome that his situation gradually improved and is currently above 90%. His white cell count is 14.8. His d-dimer is down to 10.9. The rest of the inflammatory markers are also improving and the patient has an LDH of 1395 and his CRP is down to 1.4. He remains on a combination of Decadron and Baricitinib. He is also on Lovenox for DVT prophylaxis. No other new complaints. No fever. He is tolerating his diet. No oropharyngeal candidiasis. Using incentive spirometer. No signs of any fluid overload. IV fluids are currently at KVO and the patient was given a dose of Lasix yesterday. 02/11/2021, patient remains in the ICU, remains on airvo, and 60% slow and 90% FiO2, his IV fluid is at KVO, patient remains marginal and his O2 saturation is barely in the low 90s. Patient tells me that his feeling better today, breathing easier. D-dimer was noted to be elevated, hence I recommended a CT angiogram of the chest, mostly because of the findings on the chest x-ray did not correlate with his profound degree of hypoxia and desaturation. WBC count today is 15.5 hemoglobin 13.9. D-dimer today is 10.98 electrolytes are normal renal profile is normal, in the meantime I'm going to recommend that we increase the dose of Lovenox. Venous Doppler on 02/05 was negative for deep vein thrombosis. 02/12/2021, patient remains in the ICU, remains on high flow oxygen, he is on airvo at 90% and 60 L flow, patient is basically about the same as yesterday, not much of a change, he does seem to be comfortable, his O2 saturation remains marginal in the low 90s. His CT angiogram of the chest was negative for pulm onary embolism. WBC count today is 14.2 hemoglobin 14.1. D-dimer was 10.98 yesterday. Again he had a negative CT angiogram of the chest. And negative Doppler of the legs. Electrolytes are normal renal profile is normal. Patient remains on the COVID-19 cocktail, he is also on Lovenox 40 mg subcu twice a day, he is still on baricitinib and on Decadron at 6 mg by mouth twice a day. He is on GI prophylaxis. Not quite ready to be transferred out of the ICU, but if he remains about the same, may transfer the patient out to the floor in the next 24 hours. Objective - Vital Signs Vital signs: Vital Signs Temp 97.9 F 02/12/21 10:00 Pulse 80 02/12/21 11:00 Resp 23 02/12/21 11:00 BP 115/75 02/12/21 11:00 Pulse Ox 94 L 02/12/21 11:00 Intake & Output 02/11/21 02/12/21 02/12/21 18:59 06:59 18:59 Intake Total 1150 690 240 Output Total 1350 800 250 Balance -200 -110 -10 Weight 82 kg 81.5 kg Intake: Oral 1150 690 240 Output: Urine 1350 800 250 Other: Voiding Method Urinal Urinal Urinal # Voids 1 # Bowel Movements 1 1 - Exam Physical Exam: Revealed a 56-year-old white male in no distress, on high flow oxygen as noted earlier Head: Atraumatic, normocephalic. HEENT:[Neck is supple.] [No neck masses.] [No thyromegaly.] [No JVD.] Lexi, EOMI, nonicteric, Chest: [Symmetrical chest expansion, crackles at the bases. No rhonchi no wheezes. Cardiac Exam: [Normal S1 and S2, no S3 gallop, no murmur.] Abdomen: [Soft, nontender, no megaly, no rebound, no guarding, normal bowel sounds.] Extremities: [No clubbing, no edema, no cyanosis.] Neurological Exam: Alert and oriented 3. [No focal neurologic deficit.] Psychiatric: Normal mood affect, normal mental status. - Labs CBC & Chem 7: 02/12/21 04:27 02/12/21 04:27 Labs: Abnormal Lab Results - Last 24 Hours (Table) 02/12/21 02/12/21 Range/Units 04:27 04:27 WBC 14.2 H (3.8-10.6) k/uL Plt Count 465 H (150-450) k/uL Neutrophils # (Manual) 12.40 H (1.3-7.7) k/uL Lymphocytes # (Manual) 0.99 L (1.0-4.8) k/uL Metamyelocytes # (Man) 0.14 H (0) k/uL Myelocytes # (Manual) 0.14 H (0) k/uL BUN 29 H (9-20) mg/dL Glucose 142 H (74-99) mg/dL ALT 71 H (4-49) U/L Total Protein 5.9 L (6.3-8.2) g/dL Albumin 3.3 L (3.5-5.0) g/dL Assessment and Plan Assessment: Acute hypoxic respiratory failure secondary to COVID-19 pneumonia Elevated inflammatory markers and d-dimer secondary to COVID-19 [place]/infection. Benign essential hypertension. Recommendation: Continue to monitor in the ICU. For the next 24 hours. Continue high flow oxygen and titrate accordingly Continue Decadron 6 mg IV push every 12 hours Continue baricitinib Continue to monitor inflammatory markers Continue Lovenox at 40 mg subcu every [address] angiogram of the chest. He was noted to be negative. We will continue to follow closely. Consider transferring the patient out of the ICU tomorrow. Time with Patient: Less than 30
[2021-02-12] MEDS: BARICITINIB 2 MG TABLET PO SCH (15:11)
[2021-02-13 05:14] LABS: HCT 40.6 % (39.0-53.0); HGB 13.9 gm/dL (13.0-17.5); MCHC 34.3 g/dL (31.0-37.0); MCV 93.4 fL (80.0-100.0); Mean Platelet Volume 8.2; Platelet Count 510 k/uL (150-450); RBC 4.35 m/uL (4.30-5.90); RDW 13.1 % (11.5-15.5); WBC 17.9 k/uL (3.8-10.6)
[2021-02-13 05:29] LABS: African American GFR (CKD) >90 (>60 ml/min/1.73 sqM); Anion Gap 10 mmol/L; Blood Urea Nitrogen 28 mg/dL (9-20); Calcium 9.4 mg/dL (8.4-10.2); Carbon Dioxide 23 mmol/L (22-30); Chloride 101 mmol/L (98-107); Glucose 125 mg/dL (74-99); Non-African American GFR(CKD) >90 (>60 ml/min/1.73 sqM); Potassium 4.6 mmol/L (3.5-5.1); Sodium 134 mmol/L (137-145)
[2021-02-13 05:31] LABS: Band Neutrophils % 11 %; Lymphocytes # (M) 0.36 k/uL (1.0-4.8); Monocytes # (M) 0.72 k/uL (0-1.0); Neutrophils % (M) 83 %; Nucleated Red Blood Cells 0 /100 WBC (0-0); Total Cells Counted 100
[2021-02-13] MEDS: PANTOPRAZOLE 40 MG TABLET PO SCH ×2 (06:51→18:40)
--- NOTE | 2021-02-13 09:02 | P.PN ---
Subjective Progress Note Date: 02/13/21 HISTORY OF PRESENT ILLNESS: This is a 56-year-old male with a past medical history significant for hypertension and hypertensive cardiovascular disease, hyperlipidemia, history of tobacco use and dependence, presented to the emergency department at [facility] with increased coughing and increased shortness breath that started last and has been getting worse over the last few days, yesterday he was extremely short of breath and his oxygen saturation was in the low 70s, his tried to get him to the ER but eventually called 911 and the patient was brought into the ER at [facility] where he had a chest x-ray that did show evidence of bilateral patchy infiltrate suggestive of Covid pneumonia, his COVID-19 PCR was positive, patient was started on nonrebreather, and later on was seen in consultation by pulmonary medicine and he was placed on Airvo and was started on Bacitinib 4 mg po daily and the patient was admitted to the hospital for further evaluation and treatment. 02/05: A shunt is currently on AirVol. He has complained of feeling tired and complaining of gastric reflux. Protonix will be increased to 40 mg IV push twice daily. Patient is been seen by pulmonary medicine and started on Baricitinib, continued on dexamethasone 6 mg twice daily, Lovenox 40 mg daily. He has been afebrile, heart rate 92, blood pressure 137/86, pulse ox 97%. Rep eat blood work reveals WBC 2.2, d-dimer 3.33, blood sugar 143. LDH 735, C- reactive protein 15.5. Chest x-ray reveals chronic emphysematous and pulmonary fibrotic changes with bilateral multifocal reticular nodular opacities consistent with COVID-19. Perhaps slight improvement in the right lung base. Ultrasound of bilateral lower extremities negative for DVT. 02/06: Last evening, patient was transferred into the intensive care unit as he was on 15 L nonrebreather was transitioned over to AirVo 60 L 90% with nonrebreather on top. Pulse ox is currently running 84-87%. He has been afebrile, heart rate in the 80s and 90s, respiratory rate 29, blood pressure 131/82. Patient is requesting Cepacol lozenges and nasal spray added. Ensure 3 times daily also added, patient has decreased appetite and limited oral intake. Repeat blood work reveals WBC 4.9, hemoglobin 13.6. Platelet count 381. D- dimer 2.15. LDH 1685. C-reactive protein 5.6. Repeat chest x-ray revealed continue his Covid infiltrate superimposed on bollous emphysema. Slight improvement in aeration in the right upper lobe. Patient is continued on dexamethasone, Lovenox, vitamin supplements and Baricitinib. 02/07:patient remains in the intensive care unit. He is on nonrebreather mask as well as high flow AirVo with O2 at 60 L, FiO2 90%. patient remains afebrile, heart rate in the 70s, respiratory rate 26, blood pressure 127/79, pulse ox 86- 88%, pulse ox drops in the low 80s when patient ate's. He is on ensure 3 times daily. Patient is complaining of some cough and back pain when he coughs. He is less fatigued today. 02/08: Patient remains in intensive care unit currently on nonrebreather, as well as a high flow airflow oxygen still borderline at 89%, patient is eating his protein, hysterectomy 8 his breakfast, he has no chest pain at this time he continues to be extreme short of breath, he has no abdominal pain, he had lost some of the states, he has no headache, he has no hemoptysis, he has no pleurisy, he has no edema. 02/09: Patient sitting up in a chair his feeling a bit better. He continues to be on nonrebreather along with airflow 60 L, he denies any chest pain, his continues to be somewhat short of breath, he continues to struggle with breathing, has no abdominal pain, he had a good bowel movement yesterday, he is tolerating his food, patient is stable at this point in time, he will stay in the intensive care unit due to his oxygen requirement, chest x-ray showed bilateral diffuse infiltrate suggestive of Covid pneumonia, he continues to be on Decadron 6 mg orally twice every day, we'll continue conservative management continue supportive care continue Baricitinib daily for a total of 14 doses today is 08/10 02/10: Patient is feeling better today he continues to be on airVO and NRB, continues to require a lot of oxygen, sitting up and eating his breakfast, he has no chest pain, no pleurisy, he does competitive achiness in the back of his legs, he is current;y on Baricitinib Day #6 out of 14. 02/11: Patient is seen today in the ICU. He is on AirVo had 90% 60 L and nonrebreather is used as needed. Patient is more mobile in his room. He has been afebrile, heart rate 81 and 96, blood pressure 127/72 area pulse ox 87-95%. Repeat blood work reveals WBC 15.5. Electrolytes normal. BUN 27 creatinine 0.84. Blood sugar 145. Liver function tests were normal. Patient is on regular diet and protein supplements. He is continued on Baricitinib, oral dexamethasone, Lovenox and supplements. 02/12: Patient remains in intensive care unit. He is on AirVo plus no nrebreather but he is keeping NRB in place except for oral intake. He has been afebrile, heart rate 89, respiratory rate 23-30, blood pressure 132/75, pulse ox 90%. CTA of the chest showed no pulmonary embolism. Small pericardial effusion. Extensive emphysematous changes and/or pulmonary fibrosis. Patient is on regular diet and protein supplements. No vomiting or diarrhea. WBC 14.2. Creatinine 0.76. Blood sugar 142. ALT 71. 02/13: Patient is currently on AirVo and nonrebreather with pulse ox 82-96%. He has been afebrile, heart rate in the 90s, respiratory rate 19-36. Blood pressur e 132/84. WBC 17.9. Sodium 134. Blood sugar 125. Patient is continued on supplements, Baricitinib, dexamethasone and Lovenox. REVIEW OF SYSTEMS: Constitutional: Denies fever, chills, night sweats. No weight change. positive for weakness, reports fatigue no lethargy. Reports daytime sleepiness. HEENT: No headache. No nasal drainage or congestion. No epistaxis. Reports sore throat. Lungs: Continued shortness of breath, positive for cough, positive for sputum production. positive for wheezing. Reports dyspnea with minimal activity. Cardiovascular: No chest pain, no lower extremity edema. No palpitations. No paroxysmal nocturnal dyspnea. No orthopnea. No lightheadedness or dizziness. No syncopal episodes. Abdominal: denies abdominal pain. No nausea, vomiting. No diarrhea. No constipation. No bloody or tarry stools. Reports loss of appetite. Reports gastric reflux. Genitourinary: No dysuria, increased frequency, urgency. No urinary retention. Musculoskeletal: positive for myalgias. positive for muscle weakness, no gait dysfunction, no frequent falls. No back pain. No neck pain. Integumentary: No wounds, no lesions. No rash or pruritus. No unusual bruising. No change in hair or nails. Neurologic: No aphasia. No facial droop. No change in mentation. No head injury. No headache. No paralysis. No paresthesia. Psychiatric: No depression. No anxiety. No mood swings. Endocrine: No abnormal blood sugars. No weight change. PHYSICAL EXAMINATION: General: 56-year-old male laying down in bed in mild respiratory distress HEENT: Head is atraumatic, normocephalic, pupils were equal round, sclera nonicteric, conjunctivae were pale, mucous membranes of the mouth are slightly dry. Neck: Supple, no JVP, normal carotid upstroke bilaterally, no lymphadenopathy. Chest: Decreased breath sounds at the bases, few rhonchi, moderate expiratory wheezes, no chest wall tenderness, positive for mild intercostal retractions at rest. Heart: First heart sound is normal, second heart sounds normal, there is no gallop or murmur. Abdomen: Soft, nontender, nondistended, positive bowel sounds, no hepatosplenomegaly. Extremities: There is no edema no calf tenderness DP +2 bilaterally. Neurologic examination: Patient is awake alert and oriented X 3, cranial nerves II-12 appear grossly intact. ASSESSMENT AND PLAN: 1. Acute hypoxemic respiratory failure due to bilateral patchy interstitial pneumonia due to COVID-19 pneumonia. Continue patient on Decadron 6 mg orally twice every day, Vitamin C 1000 mg orally once every day, zinc 220 mg once every day, vitamin D 1000 units once every day, Baricitinib 4 mg orally once every day for 14 doses, continue oxygen support currently on 100% nonrebreather and AirVo, continue care in the intensive care unit. 2. Bilateral Covid pneumonia with ARDS. Continue with Airvo, continue dexamethasone 6 mg orally twice every day, continue with supportive care. 3. Mild non-anion gap metabolic acidosis. Resolved. 4. Moderate 14-calorie malnutrition secondary to decreased appetite and difficulty eating with oxygen mask. Continue Ensure 3 times daily. 5. DVT prophylaxis. Continue Lovenox 40 mg subcutaneously every 24 hours 6. GERD and GI prophylaxis. Continue patient on Protonix 40 mg IV push every 12 hours as well as Carafate 1 g orally twice every day . 7. Patient is full code. Impression and plan of care have been directed as dictated by the signing physician. Viridiana Baker nurse practitioner acting as scribe for signing physician. Objective - Vital Signs Vital signs: Vital Signs Temp 98.2 F 02/13/21 04:00 Pulse 96 02/13/21 07:00 Resp 36 H 02/13/21 07:00 BP 132/84 02/13/21 07:00 Pulse Ox 92 L 02/13/21 07:36 Intake & Output 02/12/21 02/13/21 02/13/21 18:59 06:59 18:59 Intake Total 730 1080 Output Total 1000 700 200 Balance -270 380 -200 Weight 82.4 kg Intake: Oral 730 540 Tube Feeding 540 Output: Urine 1000 700 200 Other: Voiding Method Urinal Urinal # Voids 1 # Bowel Movements 1 - Labs CBC & Chem 7: 02/13/21 04:19 02/13/21 04:19 Labs: Abnormal Lab Results - Last 24 Hours (Table) 02/12/21 02/13/21 02/13/21 Range/Units 04:27 04:19 04:19 WBC 17.9 H (3.8-10.6) k/uL Plt Count 510 H (150-450) k/uL Neutrophils # (Manual) 12.40 H 16.80 H (1.3-7.7) k/uL Lymphocytes # (Manual) 0.99 L 0.36 L (1.0-4.8) k/uL Metamyelocytes # (Man) 0.14 H (0) k/uL Myelocytes # (Manual) 0.14 H (0) k/uL Sodium 134 L (137-145) mmol/L BUN 28 H (9-20) mg/dL Glucose 125 H (74-99) mg/dL
[2021-02-13] MEDS: MULTIVITAMINS, THERA 1 EACH TAB PO SCH (09:24)
[2021-02-13] MEDS: ASCORBIC ACID 500 MG TAB PO SCH (09:24)
[2021-02-13] MEDS: dexAMETHasone 2 MG TAB PO SCH ×2 (09:24→20:32)
[2021-02-13] MEDS: ZINC SULFATE 220 MG CAP PO SCH (09:24)
[2021-02-13] MEDS: CHOLECALCIFEROL 25 MCG (1000 IU) TABLET PO SCH (09:24)
[2021-02-13] MEDS: ENOXAPARIN 40 MG/0.4 ML SYRINGE SQ SCH ×2 (09:24→20:32)
--- NOTE | 2021-02-13 12:20 | P.PN ---
Subjective Progress Note Date: 02/13/21 Principal diagnosis: Acute hypoxic respiratory failure secondary to COVID-19 pneumonia 02/09/2021, patient is essentially unchanged. Remains on Airvo at 60 L an FiO2 of 90% along with a nonrebreather facemask. Chest x-ray findings are essentially stable with diffuse bilateral pulmonary infiltrates, unchanged with daily comparison. He remains on a combination of Decadron and Baricitinib and the patient is also on Lovenox 40 mg subcu every 12 hours. Inflammatory markers from today was noted. There is a slight drop the LDH which is currently down to 1513. CRP is down to 1.8, and the d-dimer currently is at 13.9. No other significant events overnight. The patient continues to desaturate easily. No interval worsening shortness of breath. His condition is overall stable. We'll keep him on the same oxygen setting which is a Airvo at 60 L along with 100% nonrebreather facemask for now. He is tolerating his diet. No nausea. No vomiting. No altered mentation. She was given a dose of Lasix yesterday with excellent urine output and he has a negative fluid balance is. His IV fluids currently are KVO 02/10/2021, the patient's condition remains essentially unchanged. His condition is stable. He remains on high flow oxygen at 6 L with an FiO2 of 90% along with 100% nonrebreather facemask. Yesterday, while being transported to have a bowel movement, the patient desaturated and however following his saturation was able to overcome that his situation gradually improved and is currently above 90%. His white cell count is 14.8. His d-dimer is down to 10.9. The rest of the inflammatory markers are also improving and the patient has an LDH of 1395 and his CRP is down to 1.4. He remains on a combination of Decadron and Baricitinib. He is also on Lovenox for DVT prophylaxis. No other new complaints. No fever. He is tolerating his diet. No oropharyngeal candidiasis. Using incentive spirometer. No signs of any fluid overload. IV fluids are currently at KVO and the patient was given a dose of Lasix yesterday. 02/11/2021, patient remains in the ICU, remains on airvo, and 60% slow and 90% FiO2, his IV fluid is at KVO, patient remains marginal and his O2 saturation is barely in the low 90s. Patient tells me that his feeling better today, breathing easier. D-dimer was noted to be elevated, hence I recommended a CT angiogram of the chest, mostly because of the findings on the chest x-ray did not correlate with his profound degree of hypoxia and desaturation. WBC count today is 15.5 hemoglobin 13.9. D-dimer today is 10.98 electrolytes are normal renal profile is normal, in the meantime I'm going to recommend that we increase the dose of Lovenox. Venous Doppler on 02/05 was negative for deep vein thrombosis. 02/12/2021, patient remains in the ICU, remains on high flow oxygen, he is on airvo at 90% and 60 L flow, patient is basically about the same as yesterday, not much of a change, he does seem to be comfortable, his O2 saturation remains marginal in the low 90s. His CT angiogram of the chest was negative for pulm onary embolism. WBC count today is 14.2 hemoglobin 14.1. D-dimer was 10.98 yesterday. Again he had a negative CT angiogram of the chest. And negative Doppler of the legs. Electrolytes are normal renal profile is normal. Patient remains on the COVID-19 cocktail, he is also on Lovenox 40 mg subcu twice a day, he is still on baricitinib and on Decadron at 6 mg by mouth twice a day. He is on GI prophylaxis. Not quite ready to be transferred out of the ICU, but if he remains about the same, may transfer the patient out to the floor in the next 24 hours. 02/13/2021, patient remains in the ICU, remains on high oxygen, no change since yesterday, patient is feeling clinically a bit better, breathing easier, but his overall status is basically the same. O2 saturation remains very marginal in the low 90s. Patient is afebrile. He is hemodynamically stable. WBC count of 17.9 hemoglobin is 13.9, basic metabolic profile is normal renal profile is normal. CT angiogram showed no evidence of thrombus embolic disease. Patient remains on Lovenox 40 mg subcu twice a day 4 elevated d-dimer. Remains on baricitinib, and on the rest of the COVID-19 cocktail including Decadron 6 mg by mouth twice a day. Objective - Vital Signs Vital signs: Vital Signs Temp 98.2 F 02/13/21 04:00 Pulse 99 02/13/21 10:00 Resp 21 02/13/21 10:00 BP 98/64 02/13/21 10:00 Pulse Ox 92 L 02/13/21 11:19 Intake & Output 02/12/21 02/13/21 02/13/21 18:59 06:59 18:59 Intake Total 730 1080 Output Total 1000 700 200 Balance -270 380 -200 Weight 82.4 kg Intake: Oral 730 540 Tube Feeding 540 Output: Urine 1000 700 200 Other: Voiding Method Urinal Urinal Urinal # Voids 1 # Bowel Movements 1 - Exam Physical Exam: Revealed a 56-year-old white male in no distress, on high flow oxygen , O2 saturation is marginal. Patient looks comfortable Head: Atraumatic, normocephalic. HEENT:[Neck is supple.] [No neck masses.] [No thyromegaly.] [No JVD.] Lexi, EOMI, nonicteric, Chest: [Symmetrical chest expansion, crackles at the bases. No rhonchi no wheezes. Cardiac Exam: [Normal S1 and S2, no S3 gallop, no murmur.] Abdomen: [Soft, nontender, no megaly, no rebound, no guarding, normal bowel sounds.] Extremities: [No clubbing, no edema, no cyanosis.] Neurological Exam: Alert and oriented 3. [No focal neurologic deficit.] Psychiatric: Normal mood affect, normal mental status. - Labs CBC & Chem 7: 02/13/21 04:19 02/13/21 04:19 Labs: Abnormal Lab Results - Last 24 Hours (Table) 02/13/21 02/13/21 Range/Units 04:19 04:19 WBC 17.9 H (3.8-10.6) k/uL Plt Count 510 H (150-450) k/uL Neutrophils # (Manual) 16.80 H (1.3-7.7) k/uL Lymphocytes # (Manual) 0.36 L (1.0-4.8) k/uL Sodium 134 L (137-145) mmol/L BUN 28 H (9-20) mg/dL Glucose 125 H (74-99) mg/dL Assessment and Plan Assessment: Acute hypoxic respiratory failure secondary to COVID-19 pneumonia Elevated inflammatory markers and d-dimer secondary to COVID-19 infection. Benign essential hypertension. Recommendation: Continue to monitor in the ICU. Continue high flow oxygen and titrate accordingly Continue Decadron 6 mg IV push every 12 hours Continue baricitinib Continue Lovenox at 40 mg subcu every 12 hours We'll keep in the ICU for another 24 hours and likely transfer to the floor in a.m. Time with Patient: Less than 30
[2021-02-13] MEDS: BARICITINIB 2 MG TABLET PO SCH (13:50)
[2021-02-14 04:55] LABS: AST 114 U/L (17-59); African American GFR (CKD) >90 (>60 ml/min/1.73 sqM); Albumin 3.4 g/dL (3.5-5.0); Alkaline Phosphatase 90 U/L (38-126); Anion Gap 8 mmol/L; Blood Urea Nitrogen 26 mg/dL (9-20); Calcium 9.2 mg/dL (8.4-10.2); Carbon Dioxide 22 mmol/L (22-30); Chloride 101 mmol/L (98-107); Glucose 113 mg/dL (74-99); Non-African American GFR(CKD) >90 (>60 ml/min/1.73 sqM); Sodium 131 mmol/L (137-145); Total Bilirubin 0.4 mg/dL (0.2-1.3); Total Protein 6.1 g/dL (6.3-8.2)
[2021-02-14 04:57] LABS: HCT 40.2 % (39.0-53.0); HGB 14.2 gm/dL (13.0-17.5); MCH 32.7 pg (25.0-35.0); MCHC 35.3 g/dL (31.0-37.0); MCV 92.5 fL (80.0-100.0); Mean Platelet Volume 7.9; Platelet Count 626 k/uL (150-450); RBC 4.35 m/uL (4.30-5.90); RDW 13.8 % (11.5-15.5); WBC 17.6 k/uL (3.8-10.6)
[2021-02-14 05:00] LABS: ALT 158 U/L (4-49)
[2021-02-14 06:02] LABS: Band Neutrophils % 12 %; Lymphocytes # (M) 1.06 k/uL (1.0-4.8); Monocytes # (M) 0.35 k/uL (0-1.0); Neutrophils % (M) 80 %; Nucleated Red Blood Cells 0 /100 WBC (0-0); Total Cells Counted 100
[2021-02-14] MEDS: PANTOPRAZOLE 40 MG TABLET PO SCH ×2 (06:40→16:51)
--- NOTE | 2021-02-14 08:05 | XR ---
EXAMINATION TYPE: XR chest 1V portable DATE OF EXAM: 02/14/2021 HISTORY: Shortness of breath. COMPARISON: 02/10/2021 TECHNIQUE: Single view of the chest is submitted. FINDINGS: Demonstrated are scattered senescent parenchymal change. Patchy left perihilar and basilar infiltrates persist unchanged. Large emphysematous bulla right uppe r lobe. The heart is stable. Hilar and mediastinal structures are within normal limits. Degenerative changes are seen of the dorsal spine. IMPRESSION: 1. Stable chest
[2021-02-14] MEDS: ENOXAPARIN 40 MG/0.4 ML SYRINGE SQ SCH ×2 (08:43→20:02)
[2021-02-14] MEDS: dexAMETHasone 2 MG TAB PO SCH ×2 (08:43→20:01)
[2021-02-14] MEDS: ZINC SULFATE 220 MG CAP PO SCH (08:43)
[2021-02-14] MEDS: CHOLECALCIFEROL 25 MCG (1000 IU) TABLET PO SCH (08:43)
[2021-02-14] MEDS: ASCORBIC ACID 500 MG TAB PO SCH (08:43)
[2021-02-14] MEDS: MULTIVITAMINS, THERA 1 EACH TAB PO SCH (08:43)
--- NOTE | 2021-02-14 12:11 | P.PN ---
Subjective Progress Note Date: 02/14/21 Principal diagnosis: Acute hypoxic respiratory failure secondary to COVID-19 pneumonia 02/09/2021, patient is essentially unchanged. Remains on Airvo at 60 L an FiO2 of 90% along with a nonrebreather facemask. Chest x-ray findings are essentially stable with diffuse bilateral pulmonary infiltrates, unchanged with daily comparison. He remains on a combination of Decadron and Baricitinib and the patient is also on Lovenox 40 mg subcu every 12 hours. Inflammatory markers from today was noted. There is a slight drop the LDH which is currently down to 1513. CRP is down to 1.8, and the d-dimer currently is at 13.9. No other significant events overnight. The patient continues to desaturate easily. No interval worsening shortness of breath. His condition is overall stable. We'll keep him on the same oxygen setting which is a Airvo at 60 L along with 100% nonrebreather facemask for now. He is tolerating his diet. No nausea. No vomiting. No altered mentation. She was given a dose of Lasix yesterday with excellent urine output and he has a negative fluid balance is. His IV fluids currently are KVO 02/10/2021, the patient's condition remains essentially unchanged. His condition is stable. He remains on high flow oxygen at 6 L with an FiO2 of 90% along with 100% nonrebreather facemask. Yesterday, while being transported to have a bowel movement, the patient desaturated and however following his saturation was able to overcome that his situation gradually improved and is currently above 90%. His white cell count is 14.8. His d-dimer is down to 10.9. The rest of the inflammatory markers are also improving and the patient has an LDH of 1395 and his CRP is down to 1.4. He remains on a combination of Decadron and Baricitinib. He is also on Lovenox for DVT prophylaxis. No other new complaints. No fever. He is tolerating his diet. No oropharyngeal candidiasis. Using incentive spirometer. No signs of any fluid overload. IV fluids are currently at KVO and the patient was given a dose of Lasix yesterday. 02/11/2021, patient remains in the ICU, remains on airvo, and 60% slow and 90% FiO2, his IV fluid is at KVO, patient remains marginal and his O2 saturation is barely in the low 90s. Patient tells me that his feeling better today, breathing easier. D-dimer was noted to be elevated, hence I recommended a CT angiogram of the chest, mostly because of the findings on the chest x-ray did not correlate with his profound degree of hypoxia and desaturation. WBC count today is 15.5 hemoglobin 13.9. D-dimer today is 10.98 electrolytes are normal renal profile is normal, in the meantime I'm going to recommend that we increase the dose of Lovenox. Venous Doppler on 02/05 was negative for deep vein thrombosis. 02/12/2021, patient remains in the ICU, remains on high flow oxygen, he is on airvo at 90% and 60 L flow, patient is basically about the same as yesterday, not much of a change, he does seem to be comfortable, his O2 saturation remains marginal in the low 90s. His CT angiogram of the chest was negative for pulm onary embolism. WBC count today is 14.2 hemoglobin 14.1. D-dimer was 10.98 yesterday. Again he had a negative CT angiogram of the chest. And negative Doppler of the legs. Electrolytes are normal renal profile is normal. Patient remains on the COVID-19 cocktail, he is also on Lovenox 40 mg subcu twice a day, he is still on baricitinib and on Decadron at 6 mg by mouth twice a day. He is on GI prophylaxis. Not quite ready to be transferred out of the ICU, but if he remains about the same, may transfer the patient out to the floor in the next 24 hours. 02/13/2021, patient remains in the ICU, remains on high oxygen, no change since yesterday, patient is feeling clinically a bit better, breathing easier, but his overall status is basically the same. O2 saturation remains very marginal in the low 90s. Patient is afebrile. He is hemodynamically stable. WBC count of 17.9 hemoglobin is 13.9, basic metabolic profile is normal renal profile is normal. CT angiogram showed no evidence of thrombus embolic disease. Patient remains on Lovenox 40 mg subcu twice a day 4 elevated d-dimer. Remains on baricitinib, and on the rest of the COVID-19 cocktail including Decadron 6 mg by mouth twice a day. Reevaluated today on 02/14/2021, patient is basically the same compared to yesterday and compared to the last few days. Remains on high flow oxygen, patient is on 90%, 60 L flow, and he is also on non-rebreather mask. O2 saturations remained marginal, patient is feeling better clinically. 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 WBC count is the same as yesterday 17.6. CBC is relatively normal. Renal profile is normal. Liver enzymes are a bit elevated. Last LDH few days ago was 1395 and C-reactive protein 1.4. Objective - Vital Signs Vital signs: Vital Signs Temp 96.8 F L 02/14/21 08:00 Pulse 90 02/14/21 10:00 Resp 23 02/14/21 10:00 BP 143/78 02/14/21 09:00 Pulse Ox 93 L 02/14/21 10:00 Intake & Output 02/13/21 02/14/21 02/14/21 18:59 06:59 18:59 Intake Total 840 Output Total 1300 2000 Balance -1300 -1160 Weight 81.7 kg Intake: Oral 840 Output: Urine 1300 2000 Other: Voiding Method Urinal Urinal Urinal - Exam Physical Exam: Revealed a 56-year-old white male in no distress on high flow oxygen. Head: Atraumatic, normocephalic. HEENT:[Neck is supple.] [No neck masses.] [No thyromegaly.] [No JVD.] Lexi, EOMI, nonicteric, Chest: [Symmetrical chest expansion, crackles at the bases. No rhonchi no wheezes. Cardiac Exam: [Normal S1 and S2, no S3 gallop, no murmur.] Abdomen: [Soft, nontender, no megaly, no rebound, no guarding, normal bowel sounds.] Extremities: [No clubbing, no edema, no cyanosis.] Neurological Exam: Alert and oriented 3. [No focal neurologic deficit.] Psychiatric: Normal mood affect, normal mental status. - Labs CBC & Chem 7: 02/14/21 04:22 02/14/21 04:22 Labs: Abnormal Lab Results - Last 24 Hours (Table) 02/14/21 02/14/21 Range/Units 04:22 04:22 WBC 17.6 H (3.8-10.6) k/uL Plt Count 626 H (150-450) k/uL Neutrophils # (Manual) 16.10 H (1.3-7.7) k/uL Sodium 131 L (137-145) mmol/L BUN 26 H (9-20) mg/dL Glucose 113 H (74-99) mg/dL AST 114 H (17-59) U/L ALT 158 H (4-49) U/L Total Protein 6.1 L (6.3-8.2) g/dL Albumin 3.4 L (3.5-5.0) g/dL Assessment and Plan Assessment: Acute hypoxic respiratory failure secondary to COVID-19 pneumonia Elevated inflammatory markers and d-dimer secondary to COVID-19 infection. Benign essential hypertension. Recommendation: Considering the patient is relatively stable for now, I will arrange for the patient to transfer to a regular medical floor however no changes were made in his present treatment. Continue high flow oxygen and titrate accordingly Continue Decadron 6 mg IV push every 12 hours Continue baricitinib Continue Lovenox at 40 mg subcu every 12 hours We'll continue to follow. Time with Patient: Less than 30
[2021-02-14] MEDS: BARICITINIB 2 MG TABLET PO SCH (14:48)
--- NOTE | 2021-02-14 15:22 | P.PN ---
Subjective Progress Note Date: 02/14/21 HISTORY OF PRESENT ILLNESS: This is a 56-year-old male with a past medical history significant for hypertension and hypertensive cardiovascular disease, hyperlipidemia, history of tobacco use and dependence, presented to the emergency department at [facility] with increased coughing and increased shortness breath that started last and has been getting worse over the last few days, yesterday he was extremely short of breath and his oxygen saturation was in the low 70s, his tried to get him to the ER but eventually called 911 and the patient was brought into the ER at [facility] where he had a chest x-ray that did show evidence of bilateral patchy infiltrate suggestive of Covid pneumonia, his COVID-19 PCR was positive, patient was started on nonrebreather, and later on was seen in consultation by pulmonary medicine and he was placed on Airvo and was started on Bacitinib 4 mg po daily and the patient was admitted to the hospital for further evaluation and treatment. 02/05: A shunt is currently on AirVol. He has complained of feeling tired and complaining of gastric reflux. Protonix will be increased to 40 mg IV push twice daily. Patient is been seen by pulmonary medicine and started on Baricitinib, continued on dexamethasone 6 mg twice daily, Lovenox 40 mg daily. He has been afebrile, heart rate 92, blood pressure 137/86, pulse ox 97%. Rep eat blood work reveals WBC 2.2, d-dimer 3.33, blood sugar 143. LDH 735, C- reactive protein 15.5. Chest x-ray reveals chronic emphysematous and pulmonary fibrotic changes with bilateral multifocal reticular nodular opacities consistent with COVID-19. Perhaps slight improvement in the right lung base. Ultrasound of bilateral lower extremities negative for DVT. 02/06: Last evening, patient was transferred into the intensive care unit as he was on 15 L nonrebreather was transitioned over to AirVo 60 L 90% with nonrebreather on top. Pulse ox is currently running 84-87%. He has been afebrile, heart rate in the 80s and 90s, respiratory rate 29, blood pressure 131/82. Patient is requesting Cepacol lozenges and nasal spray added. Ensure 3 times daily also added, patient has decreased appetite and limited oral intake. Repeat blood work reveals WBC 4.9, hemoglobin 13.6. Platelet count 381. D- dimer 2.15. LDH 1685. C-reactive protein 5.6. Repeat chest x-ray revealed continue his Covid infiltrate superimposed on bollous emphysema. Slight improvement in aeration in the right upper lobe. Patient is continued on dexamethasone, Lovenox, vitamin supplements and Baricitinib. 02/07:patient remains in the intensive care unit. He is on nonrebreather mask as well as high flow AirVo with O2 at 60 L, FiO2 90%. patient remains afebrile, heart rate in the 70s, respiratory rate 26, blood pressure 127/79, pulse ox 86- 88%, pulse ox drops in the low 80s when patient ate's. He is on ensure 3 times daily. Patient is complaining of some cough and back pain when he coughs. He is less fatigued today. 02/08: Patient remains in intensive care unit currently on nonrebreather, as well as a high flow airflow oxygen still borderline at 89%, patient is eating his protein, hysterectomy 8 his breakfast, he has no chest pain at this time he continues to be extreme short of breath, he has no abdominal pain, he had lost some of the states, he has no headache, he has no hemoptysis, he has no pleurisy, he has no edema. 02/09: Patient sitting up in a chair his feeling a bit better. He continues to be on nonrebreather along with airflow 60 L, he denies any chest pain, his continues to be somewhat short of breath, he continues to struggle with breathing, has no abdominal pain, he had a good bowel movement yesterday, he is tolerating his food, patient is stable at this point in time, he will stay in the intensive care unit due to his oxygen requirement, chest x-ray showed bilateral diffuse infiltrate suggestive of Covid pneumonia, he continues to be on Decadron 6 mg orally twice every day, we'll continue conservative management continue supportive care continue Baricitinib daily for a total of 14 doses today is 08/10 02/10: Patient is feeling better today he continues to be on airVO and NRB, continues to require a lot of oxygen, sitting up and eating his breakfast, he has no chest pain, no pleurisy, he does competitive achiness in the back of his legs, he is current;y on Baricitinib Day #6 out of 14. 02/11: Patient is seen today in the ICU. He is on AirVo had 90% 60 L and nonrebreather is used as needed. Patient is more mobile in his room. He has been afebrile, heart rate 81 and 96, blood pressure 127/72 area pulse ox 87-95%. Repeat blood work reveals WBC 15.5. Electrolytes normal. BUN 27 creatinine 0.84. Blood sugar 145. Liver function tests were normal. Patient is on regular diet and protein supplements. He is continued on Baricitinib, oral dexamethasone, Lovenox and supplements. 02/12: Patient remains in intensive care unit. He is on AirVo plus no nrebreather but he is keeping NRB in place except for oral intake. He has been afebrile, heart rate 89, respiratory rate 23-30, blood pressure 132/75, pulse ox 90%. CTA of the chest showed no pulmonary embolism. Small pericardial effusion. Extensive emphysematous changes and/or pulmonary fibrosis. Patient is on regular diet and protein supplements. No vomiting or diarrhea. WBC 14.2. Creatinine 0.76. Blood sugar 142. ALT 71. 02/13: Patient is currently on AirVo and nonrebreather with pulse ox 82-96%. He has been afebrile, heart rate in the 90s, respiratory rate 19-36. Blood pressur e 132/84. WBC 17.9. Sodium 134. Blood sugar 125. Patient is continued on supplements, Baricitinib, dexamethasone and Lovenox. 02/14: Patient remains in the intensive care unit on airvo and nonrebreather. He states he was up in a chair for a little while yesterday. He still has coughing, no fever or chills. He is taking protein supplement. Patient has been afebrile, heart rate 97, blood pressure 139/88, respiratory rate 24, pulse ox 92%. WBC 17.6. Sodium 131. Patient is continued on supplements, Baricitinib, dexamethasone and Lovenox. REVIEW OF SYSTEMS: Constitutional: Denies fever, chills, night sweats. No weight change. positive for weakness, reports fatigue no lethargy. Reports daytime sleepiness. HEENT: No headache. No nasal drainage or congestion. No epistaxis. Reports sore throat. Lungs: Continued shortness of breath, positive for cough, positive for sputum production. positive for wheezing. Reports dyspnea with minimal activity. Cardiovascular: No chest pain, no lower extremity edema. No palpitations. No paroxysmal nocturnal dyspnea. No orthopnea. No lightheadedness or dizziness. No syncopal episodes. Abdominal: denies abdominal pain. No nausea, vomiting. No diarrhea. No constipation. No bloody or tarry stools. Reports loss of appetite. Reports gastric reflux. Genitourinary: No dysuria, increased frequency, urgency. No urinary retention. Musculoskeletal: positive for myalgias. positive for muscle weakness, no gait dysfunction, no frequent falls. No back pain. No neck pain. Integumentary: No wounds, no lesions. No rash or pruritus. No unusual bruising. Neurologic: No aphasia. No facial droop. No change in mentation. No head injury. No headache. No paralysis. No paresthesia. Psychiatric: No depression. No anxiety. Endocrine: No abnormal blood sugars. No weight change. PHYSICAL EXAMINATION: General: 56-year-old male in bed in mild respiratory distress HEENT: Head is atraumatic, normocephalic, pupils were equal round, sclera nonicteric, conjunctivae were pale, mucous membranes of the mouth are slightly dry. Neck: Supple, no JVP, normal carotid upstroke bilaterally, no lymphadenopathy. Chest: Decreased breath sounds at the bases, few rhonchi, moderate expiratory wheezes, no chest wall tenderness, positive for mild intercostal retractions at rest. Heart: First heart sound is normal, second heart sounds normal, there is no gallop or murmur. Abdomen: Soft, nontender, nondistended, positive bowel sounds, no hepatosplenomegaly. Extremities: There is no edema no calf tenderness DP +2 bilaterally. Neurologic examination: Patient is awake alert and oriented X 3, cranial nerves II-12 appear grossly intact. ASSESSMENT AND PLAN: 1. Acute hypoxemic respiratory failure due to bilateral patchy interstitial pneumonia due to COVID-19 pneumonia. Continue patient on Decadron 6 mg orally twice every day, Vitamin C 1000 mg orally once every day, zinc 220 mg once every day, vitamin D 1000 units once every day, Baricitinib 4 mg orally once every day for 14 doses, continue oxygen support currently on 100% nonrebreather and AirVo, continue care in the intensive care unit. 2. Bilateral Covid pneumonia with ARDS. Continue with Airvo and nonrebreather, continue dexamethasone 6 mg orally twice every day, continue with supportive care. 3. Mild non-anion gap metabolic acidosis. Resolved. 4. Moderate 14-calorie malnutrition secondary to decreased appetite and difficulty eating with oxygen mask. Continue Ensure 3 times daily. 5. DVT prophylaxis. Continue Lovenox 40 mg subcutaneously every 24 hours 6. GERD and GI prophylaxis. Continue patient on Protonix 40 mg IV push every 12 hours as well as Carafate 1 g orally twice every day . 7. Patient is full code. Impression and plan of care have been directed as dictated by the signing physician. Viridiana Baker nurse practitioner acting as scribe for signing physician. Objective - Vital Signs Vital signs: Vital Signs Temp 96.8 F L 02/14/21 08:00 Pulse 97 02/14/21 08:00 Resp 24 02/14/21 08:00 BP 139/88 02/14/21 08:00 Pulse Ox 92 L 02/14/21 08:00 Intake & Output 02/13/21 02/14/21 02/14/21 18:59 06:59 18:59 Intake Total 840 Output Total 1300 2000 Balance -1300 -1160 Weight 81.7 kg Intake: Oral 840 Output: Urine 1300 2000 Other: Voiding Method Urinal Urinal Urinal - Labs CBC & Chem 7: 02/14/21 04:22 02/14/21 04:22 Labs: Abnormal Lab Results - Last 24 Hours (Table) 02/14/21 02/14/21 Range/Units 04:22 04:22 WBC 17.6 H (3.8-10.6) k/uL Plt Count 626 H (150-450) k/uL Neutrophils # (Manual) 16.10 H (1.3-7.7) k/uL Sodium 131 L (137-145) mmol/L BUN 26 H (9-20) mg/dL Glucose 113 H (74-99) mg/dL AST 114 H (17-59) U/L ALT 158 H (4-49) U/L Total Protein 6.1 L (6.3-8.2) g/dL Albumin 3.4 L (3.5-5.0) g/dL
[2021-02-15 04:30] LABS: HCT 42.3 % (39.0-53.0); HGB 14.7 gm/dL (13.0-17.5); MCH 32.4 pg (25.0-35.0); MCHC 34.8 g/dL (31.0-37.0); MCV 93.1 fL (80.0-100.0); Mean Platelet Volume 8.1; Platelet Count 656 k/uL (150-450); RBC 4.54 m/uL (4.30-5.90); RDW 13.8 % (11.5-15.5)
[2021-02-15 04:42] LABS: ALT 229 U/L (4-49); AST 86 U/L (17-59); African American GFR (CKD) >90 (>60 ml/min/1.73 sqM); Albumin 3.7 g/dL (3.5-5.0); Alkaline Phosphatase 92 U/L (38-126); Anion Gap 10 mmol/L; Blood Urea Nitrogen 36 mg/dL (9-20); Calcium 9.5 mg/dL (8.4-10.2); Carbon Dioxide 21 mmol/L (22-30); Chloride 100 mmol/L (98-107); Glucose 127 mg/dL (74-99); Non-African American GFR(CKD) >90 (>60 ml/min/1.73 sqM); Potassium 4.8 mmol/L (3.5-5.1); Sodium 131 mmol/L (137-145); Total Bilirubin 0.5 mg/dL (0.2-1.3); Total Protein 6.4 g/dL (6.3-8.2)
[2021-02-15 05:08] LABS: Band Neutrophils % 10 %; Lymphocytes # (M) 0.63 k/uL (1.0-4.8); Metamyelocytes # (M) 0.63 k/uL (0); Metamyelocytes % 3 %; Monocytes # (M) 0.63 k/uL (0-1.0); Neutrophils % (M) 81 %; Nucleated Red Blood Cells 0 /100 WBC (0-0); Poikilocytosis (M) Present; Total Cells Counted 100
[2021-02-15] MEDS: PANTOPRAZOLE 40 MG TABLET PO SCH ×2 (06:53→17:12)
--- NOTE | 2021-02-15 08:46 | P.PN ---
Subjective Progress Note Date: 02/15/21 HISTORY OF PRESENT ILLNESS: This is a 56-year-old male with a past medical history significant for hypertension and hypertensive cardiovascular disease, hyperlipidemia, history of tobacco use and dependence, presented to the emergency department at [facility] with increased coughing and increased shortness breath that started last and has been getting worse over the last few days, yesterday he was extremely short of breath and his oxygen saturation was in the low 70s, his tried to get him to the ER but eventually called 911 and the patient was brought into the ER at [facility] where he had a chest x-ray that did show evidence of bilateral patchy infiltrate suggestive of Covid pneumonia, his COVID-19 PCR was positive, patient was started on nonrebreather, and later on was seen in consultation by pulmonary medicine and he was placed on Airvo and was started on Bacitinib 4 mg po daily and the patient was admitted to the hospital for further evaluation and treatment. 02/05: A shunt is currently on AirVol. He has complained of feeling tired and complaining of gastric reflux. Protonix will be increased to 40 mg IV push twice daily. Patient is been seen by pulmonary medicine and started on Baricitinib, continued on dexamethasone 6 mg twice daily, Lovenox 40 mg daily. He has been afebrile, heart rate 92, blood pressure 137/86, pulse ox 97%. Rep eat blood work reveals WBC 2.2, d-dimer 3.33, blood sugar 143. LDH 735, C- reactive protein 15.5. Chest x-ray reveals chronic emphysematous and pulmonary fibrotic changes with bilateral multifocal reticular nodular opacities consistent with COVID-19. Perhaps slight improvement in the right lung base. Ultrasound of bilateral lower extremities negative for DVT. 02/06: Last evening, patient was transferred into the intensive care unit as he was on 15 L nonrebreather was transitioned over to AirVo 60 L 90% with nonrebreather on top. Pulse ox is currently running 84-87%. He has been afebrile, heart rate in the 80s and 90s, respiratory rate 29, blood pressure 131/82. Patient is requesting Cepacol lozenges and nasal spray added. Ensure 3 times daily also added, patient has decreased appetite and limited oral intake. Repeat blood work reveals WBC 4.9, hemoglobin 13.6. Platelet count 381. D- dimer 2.15. LDH 1685. C-reactive protein 5.6. Repeat chest x-ray revealed continue his Covid infiltrate superimposed on bollous emphysema. Slight improvement in aeration in the right upper lobe. Patient is continued on dexamethasone, Lovenox, vitamin supplements and Baricitinib. 02/07:patient remains in the intensive care unit. He is on nonrebreather mask as well as high flow AirVo with O2 at 60 L, FiO2 90%. patient remains afebrile, heart rate in the 70s, respiratory rate 26, blood pressure 127/79, pulse ox 86- 88%, pulse ox drops in the low 80s when patient ate's. He is on ensure 3 times daily. Patient is complaining of some cough and back pain when he coughs. He is less fatigued today. 02/08: Patient remains in intensive care unit currently on nonrebreather, as well as a high flow airflow oxygen still borderline at 89%, patient is eating his protein, hysterectomy 8 his breakfast, he has no chest pain at this time he continues to be extreme short of breath, he has no abdominal pain, he had lost some of the states, he has no headache, he has no hemoptysis, he has no pleurisy, he has no edema. 02/09: Patient sitting up in a chair his feeling a bit better. He continues to be on nonrebreather along with airflow 60 L, he denies any chest pain, his continues to be somewhat short of breath, he continues to struggle with breathing, has no abdominal pain, he had a good bowel movement yesterday, he is tolerating his food, patient is stable at this point in time, he will stay in the intensive care unit due to his oxygen requirement, chest x-ray showed bilateral diffuse infiltrate suggestive of Covid pneumonia, he continues to be on Decadron 6 mg orally twice every day, we'll continue conservative management continue supportive care continue Baricitinib daily for a total of 14 doses today is 08/10 02/10: Patient is feeling better today he continues to be on airVO and NRB, continues to require a lot of oxygen, sitting up and eating his breakfast, he has no chest pain, no pleurisy, he does competitive achiness in the back of his legs, he is current;y on Baricitinib Day #6 out of 14. 02/11: Patient is seen today in the ICU. He is on AirVo had 90% 60 L and nonrebreather is used as needed. Patient is more mobile in his room. He has been afebrile, heart rate 81 and 96, blood pressure 127/72 area pulse ox 87-95%. Repeat blood work reveals WBC 15.5. Electrolytes normal. BUN 27 creatinine 0.84. Blood sugar 145. Liver function tests were normal. Patient is on regular diet and protein supplements. He is continued on Baricitinib, oral dexamethasone, Lovenox and supplements. 02/12: Patient remains in intensive care unit. He is on AirVo plus no nrebreather but he is keeping NRB in place except for oral intake. He has been afebrile, heart rate 89, respiratory rate 23-30, blood pressure 132/75, pulse ox 90%. CTA of the chest showed no pulmonary embolism. Small pericardial effusion. Extensive emphysematous changes and/or pulmonary fibrosis. Patient is on regular diet and protein supplements. No vomiting or diarrhea. WBC 14.2. Creatinine 0.76. Blood sugar 142. ALT 71. 02/13: Patient is currently on AirVo and nonrebreather with pulse ox 82-96%. He has been afebrile, heart rate in the 90s, respiratory rate 19-36. Blood pressur e 132/84. WBC 17.9. Sodium 134. Blood sugar 125. Patient is continued on supplements, Baricitinib, dexamethasone and Lovenox. 02/14: Patient remains in the intensive care unit on airvo and nonrebreather. He states he was up in a chair for a little while yesterday. He still has coughing, no fever or chills. He is taking protein supplement. Patient has been afebrile, heart rate 97, blood pressure 139/88, respiratory rate 24, pulse ox 92%. WBC 17.6. Sodium 131. Patient is continued on supplements, Baricitinib, dexamethasone and Lovenox. 02/15: Patient remains in the intensive care unit on AirVo and nonrebreather with pulse ox of 94%. Patient's been afebrile, heart rate 86, respiratory rate 22, blood pressure 120/75. Review blood work reveals WBC 21. AST 82, ALT 229. Sodium 131, potassium 4.8, creatinine 0.88. Patient is complaining of oral pain, grinding his teeth. Patient is continued on supplements, Baricitinib, dexamethasone and Lovenox. REVIEW OF SYSTEMS: Constitutional: Denies fever, chills, night sweats. No weight change. positive for weakness, reports fatigue no lethargy. Reports daytime sleepiness. HEENT: No headache. No nasal drainage or congestion. No epistaxis. Reports sore throat. Lungs: Continued shortness of breath, positive for cough, positive for sputum production. positive for wheezing. Reports dyspnea with minimal activity. Cardiovascular: No chest pain, no lower extremity edema. No palpitations. No paroxysmal nocturnal dyspnea. No orthopnea. No lightheadedness or dizziness. No syncopal episodes. Abdominal: denies abdominal pain. No nausea, vomiting. No diarrhea. No constipation. No bloody or tarry stools. Reports loss of appetite. Reports gastric reflux. Genitourinary: No dysuria, increased frequency, urgency. No urinary retention. Musculoskeletal: positive for myalgias. positive for generalized muscle weakness, no gait dysfunction, no frequent falls. No back pain. No neck pain. Integumentary: No wounds, no lesions. No rash or pruritus. No unusual bruising. Neurologic: No aphasia. No facial droop. No change in mentation. No head injury. No headache. No paralysis. No paresthesia. Psychiatric: No depression. No anxiety. Endocrine: No abnormal blood sugars. No weight change. PHYSICAL EXAMINATION: General: 56-year-old male in bed in no acute respiratory distress HEENT: Head is atraumatic, normocephalic, pupils were equal round, sclera nonicteric, conjunctivae were pale, mucous membranes of the mouth are slightly dry. Neck: Supple, no JVP, normal carotid upstroke bilaterally, no lymphadenopathy. Chest: Decreased breath sounds at the bases, few rhonchi, moderate expiratory wheezes, no chest wall tenderness, no intercostal retractions at rest. Heart: First heart sound is normal, second heart sounds normal, there is no gallop or murmur. Abdomen: Soft, nontender, nondistended, positive bowel sounds, no hepatosplenomegaly. Extremities: There is no edema no calf tenderness DP +2 bilaterally. Neurologic examination: Patient is awake alert and oriented X 3, cranial nerves II-12 appear grossly intact. ASSESSMENT AND PLAN: 1. Acute hypoxemic respiratory failure due to bilateral patchy interstitial pneumonia due to COVID-19 pneumonia. Continue patient on Decadron 6 mg orally twice every day, Vitamin C 1000 mg orally once every day, zinc 220 mg once every day, vitamin D 1000 units once every day, Baricitinib 4 mg orally once every day for 14 doses, continue oxygen therapy on 100% nonrebreather and AirVo, continue care in the intensive care unit. 2. Bilateral Covid pneumonia with ARDS. Continue with Airvo and nonrebreather, continue dexamethasone 6 mg orally twice every day, continue with supportive care. 3. Mild non-anion gap metabolic acidosis. Resolved. 4. Moderate 14-calorie malnutrition secondary to decreased appetite and difficulty eating with oxygen mask. Continue Ensure 3 times daily. 5. DVT prophylaxis. Continue Lovenox 40 mg subcutaneously every 24 hours 6. GERD and GI prophylaxis. Continue patient on Protonix 40 mg IV push every 12 hours as well as Carafate 1 g orally twice every day . 7. Patient is full code. Impression and plan of care have been directed as dictated by the signing physician. Viridiana Baker nurse practitioner acting as scribe for signing physician. Objective - Vital Signs Vital signs: Vital Signs Temp 98 F 02/15/21 00:00 Pulse 86 02/15/21 00:00 Resp 22 02/15/21 00:00 BP 120/75 02/15/21 00:00 Pulse Ox 94 L 02/15/21 01:10 Intake & Output 02/14/21 02/15/21 02/15/21 18:59 06:59 18:59 Intake Total 1350 960 Output Total 1200 1450 Balance 150 -490 Intake: Oral 1350 960 Output: Urine 1200 1450 Other: Voiding Method Urinal Urinal # Bowel Movements 1 - Labs CBC & Chem 7: 02/15/21 03:39 02/15/21 03:38 Labs: Abnormal Lab Results - Last 24 Hours (Table) 02/15/21 02/15/21 Range/Units 03:38 03:39 WBC 21.0 H (3.8-10.6) k/uL Plt Count 656 H (150-450) k/uL Neutrophils # (Manual) 19.10 H (1.3-7.7) k/uL Lymphocytes # (Manual) 0.63 L (1.0-4.8) k/uL Metamyelocytes # (Man) 0.63 H (0) k/uL Sodium 131 L (137-145) mmol/L Carbon Dioxide 21 L (22-30) mmol/L BUN 36 H (9-20) mg/dL Glucose 127 H (74-99) mg/dL AST 86 H (17-59) U/L ALT 229 H (4-49) U/L
[2021-02-15] MEDS: CHOLECALCIFEROL 25 MCG (1000 IU) TABLET PO SCH (09:09)
[2021-02-15] MEDS: ENOXAPARIN 40 MG/0.4 ML SYRINGE SQ SCH ×2 (09:09→21:54)
[2021-02-15] MEDS: ASCORBIC ACID 500 MG TAB PO SCH (09:09)
[2021-02-15] MEDS: dexAMETHasone 2 MG TAB PO SCH ×2 (09:09→21:55)
[2021-02-15] MEDS: ZINC SULFATE 220 MG CAP PO SCH (09:09)
[2021-02-15] MEDS: MULTIVITAMINS, THERA 1 EACH TAB PO SCH (09:09)
--- NOTE | 2021-02-15 10:30 | P.PN ---
Subjective Progress Note Date: 02/15/21 Principal diagnosis: Acute hypoxic respiratory failure secondary to COVID-19 pneumonia 02/09/2021, patient is essentially unchanged. Remains on Airvo at 60 L an FiO2 of 90% along with a nonrebreather facemask. Chest x-ray findings are essentially stable with diffuse bilateral pulmonary infiltrates, unchanged with daily comparison. He remains on a combination of Decadron and Baricitinib and the patient is also on Lovenox 40 mg subcu every 12 hours. Inflammatory markers from today was noted. There is a slight drop the LDH which is currently down to 1513. CRP is down to 1.8, and the d-dimer currently is at 13.9. No other significant events overnight. The patient continues to desaturate easily. No interval worsening shortness of breath. His condition is overall stable. We'll keep him on the same oxygen setting which is a Airvo at 60 L along with 100% nonrebreather facemask for now. He is tolerating his diet. No nausea. No vomiting. No altered mentation. She was given a dose of Lasix yesterday with excellent urine output and he has a negative fluid balance is. His IV fluids currently are KVO 02/10/2021, the patient's condition remains essentially unchanged. His condition is stable. He remains on high flow oxygen at 6 L with an FiO2 of 90% along with 100% nonrebreather facemask. Yesterday, while being transported to have a bowel movement, the patient desaturated and however following his saturation was able to overcome that his situation gradually improved and is currently above 90%. His white cell count is 14.8. His d-dimer is down to 10.9. The rest of the inflammatory markers are also improving and the patient has an LDH of 1395 and his CRP is down to 1.4. He remains on a combination of Decadron and Baricitinib. He is also on Lovenox for DVT prophylaxis. No other new complaints. No fever. He is tolerating his diet. No oropharyngeal candidiasis. Using incentive spirometer. No signs of any fluid overload. IV fluids are currently at KVO and the patient was given a dose of Lasix yesterday. 02/11/2021, patient remains in the ICU, remains on airvo, and 60% slow and 90% FiO2, his IV fluid is at KVO, patient remains marginal and his O2 saturation is barely in the low 90s. Patient tells me that his feeling better today, breathing easier. D-dimer was noted to be elevated, hence I recommended a CT angiogram of the chest, mostly because of the findings on the chest x-ray did not correlate with his profound degree of hypoxia and desaturation. WBC count today is 15.5 hemoglobin 13.9. D-dimer today is 10.98 electrolytes are normal renal profile is normal, in the meantime I'm going to recommend that we increase the dose of Lovenox. Venous Doppler on 02/05 was negative for deep vein thrombosis. 02/12/2021, patient remains in the ICU, remains on high flow oxygen, he is on airvo at 90% and 60 L flow, patient is basically about the same as yesterday, not much of a change, he does seem to be comfortable, his O2 saturation remains marginal in the low 90s. His CT angiogram of the chest was negative for pulmo nary embolism. WBC count today is 14.2 hemoglobin 14.1. D-dimer was 10.98 yesterday. Again he had a negative CT angiogram of the chest. And negative Doppler of the legs. Electrolytes are normal renal profile is normal. Patient remains on the COVID-19 cocktail, he is also on Lovenox 40 mg subcu twice a day, he is still on baricitinib and on Decadron at 6 mg by mouth twice a day. He is on GI prophylaxis. Not quite ready to be transferred out of the ICU, but if he remains about the same, may transfer the patient out to the floor in the next 24 hours. 02/13/2021, patient remains in the ICU, remains on high oxygen, no change since yesterday, patient is feeling clinically a bit better, breathing easier, but his overall status is basically the same. O2 saturation remains very marginal in the low 90s. Patient is afebrile. He is hemodynamically stable. WBC count of 17.9 hemoglobin is 13.9, basic metabolic profile is normal renal profile is normal. CT angiogram showed no evidence of thrombus embolic disease. Patient remains on Lovenox 40 mg subcu twice a day 4 elevated d-dimer. Remains on baricitinib, and on the rest of the COVID-19 cocktail including Decadron 6 mg by mouth twice a day. Reevaluated today on 02/14/2021, patient is basically the same compared to yesterday and compared to the last few days. Remains on high flow oxygen, patient is on 90%, 60 L flow, and he is also on non-rebreather mask. O2 saturations remained marginal, patient is feeling better clinically. 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 WBC count is the same as yesterday 17.6. CBC is relatively normal. Renal profile is normal. Liver enzymes are a bit elevated. Last LDH few days ago was 1395 and C-reactive protein 1.4. The patient is seen today 02/15/2021 in follow-up in the intensive care unit. He is currently still requiring AirVo high flow oxygen at 60 L and 90% FiO2 with a nonrebreather mask. He is doing about the same compared to yesterday. No worsening shortness of breath. His appetite remains good. Chest x-ray continues to show patchy basilar infiltrates. Unchanged. We count 21.0. Hemoglobin 14.7. Platelets 656. Lymphocytes 0.63. Sodium 131. Potassium 4.8. Creatinine 0.88. AST 86. ALT 229. He is continued on Baricitinib, Decadron, Lovenox vitamin supplements. No IV fluids currently. Objective - Vital Signs Vital signs: Vital Signs Temp 98 F 02/15/21 00:00 Pulse 86 02/15/21 00:00 Resp 22 02/15/21 00:00 BP 120/75 02/15/21 00:00 Pulse Ox 94 L 02/15/21 01:10 Intake & Output 02/14/21 02/15/21 02/15/21 18:59 06:59 18:59 Intake Total 1350 960 Output Total 1200 1450 Balance 150 -490 Intake: Oral 1350 960 Output: Urine 1200 1450 Other: Voiding Method Urinal Urinal # Bowel Movements 1 - Exam GENERAL EXAM: Alert, pleasant 56-year-old gentleman, on AirVo high flow oxygen at 60 L and 90% FiO2 plus a nonrebreather, fairly comfortable in no acute distress. HEAD: Normocephalic. EYES: Normal reaction of pupils, equal size. NOSE: Clear with pink turbinates. THROAT: No erythema or exudates. NECK: No masses, no JVD. CHEST: No chest wall deformity. LUNGS: Equal air entry with coarse crackles in bilateral bases. CVS: S1 and S2 normal with no audible murmur, regular rhythm. ABDOMEN: No hepatosplenomegaly, normal bowel sounds, no guarding or rigidity. SPINE: No scoliosis or deformity SKIN: No rashes CENTRAL NERVOUS SYSTEM: No focal deficits, tone is normal in all 4 extremities. EXTREMITIES: There is no peripheral edema. No clubbing, no cyanosis. Peripheral pulses are intact. - Labs CBC & Chem 7: 02/15/21 03:39 02/15/21 03:38 Labs: Abnormal Lab Results - Last 24 Hours (Table) 02/15/21 02/15/21 Range/Units 03:38 03:39 WBC 21.0 H (3.8-10.6) k/uL Plt Count 656 H (150-450) k/uL Neutrophils # (Manual) 19.10 H (1.3-7.7) k/uL Lymphocytes # (Manual) 0.63 L (1.0-4.8) k/uL Metamyelocytes # (Man) 0.63 H (0) k/uL Sodium 131 L (137-145) mmol/L Carbon Dioxide 21 L (22-30) mmol/L BUN 36 H (9-20) mg/dL Glucose 127 H (74-99) mg/dL AST 86 H (17-59) U/L ALT 229 H (4-49) U/L Assessment and Plan Assessment: 1 Acute hypoxemic respiratory failure secondary to acute COVID-19 pneumonia. Currently on 100% nonrebreather facemask in addition to Airvo 60 liters and 90% Fio2. Breathing remains mildly labored. Chest x-ray showing diffuse bilateral pulmonary infiltrates consistent with COVID 19 related pneumonia. No interval worsening in his chest x-ray findings. 2 Leukocytosis 3 Elevated LFTs 4 History of hypertension Plan: The patient was seen and evaluated by Dr. Salvador Remains on AirVo high flow oxygen at 60 L and 90% FiO2 No significant change in recent chest x-ray Appetite is good He is a MedSurg overflow We will continue to follow I, the cosigning physician, performed a history & physical examination of the patient. Lungs sounds coarse crackles in the posterior bases. Maintaining good O2 saturations in the 90s on AirVo high flow oxygen at 60 L and 90% FiO2 plus and nonrebreather mask. I discussed the assessment and plan of care with my nurse practitioner, Rasheeda Mcdonald. I attest to the above note as dictated by her.
[2021-02-15] MEDS: SODIUM CHLORIDE 0.9% 1,000 ML IV SCH (11:40)
[2021-02-15 11:59] LABS: Glucose,Whole Blood 119 mg/dL (75-99)
[2021-02-15] MEDS: INSULIN ASPART (NovoLOG) 100 UNIT/ML VIAL SQ SCH ×3 (13:57→23:57)
[2021-02-15] MEDS: BARICITINIB 2 MG TABLET PO SCH (14:53)
[2021-02-15 16:42] LABS: Glucose,Whole Blood 127 mg/dL (75-99)
[2021-02-15 21:11] LABS: Glucose,Whole Blood 112 mg/dL (75-99)
[2021-02-15 23:55] LABS: Glucose,Whole Blood 124 mg/dL (75-99)
[2021-02-16 05:57] LABS: Glucose,Whole Blood 127 mg/dL (75-99)
[2021-02-16] MEDS: INSULIN ASPART (NovoLOG) 100 UNIT/ML VIAL SQ SCH ×3 (06:10→17:34)
[2021-02-16] MEDS: PANTOPRAZOLE 40 MG TABLET PO SCH ×2 (06:12→17:30)
[2021-02-16] MEDS: CHOLECALCIFEROL 25 MCG (1000 IU) TABLET PO SCH (08:26)
[2021-02-16] MEDS: dexAMETHasone 2 MG TAB PO SCH ×2 (08:26→20:28)
[2021-02-16] MEDS: ZINC SULFATE 220 MG CAP PO SCH (08:26)
[2021-02-16] MEDS: ASCORBIC ACID 500 MG TAB PO SCH (08:26)
[2021-02-16] MEDS: ENOXAPARIN 40 MG/0.4 ML SYRINGE SQ SCH ×2 (08:26→20:28)
[2021-02-16] MEDS: MULTIVITAMINS, THERA 1 EACH TAB PO SCH (08:27)
[2021-02-16 08:54] LABS: ALT 445 U/L (4-49); African American GFR (CKD) >90 (>60 ml/min/1.73 sqM); Albumin 3.5 g/dL (3.5-5.0); Anion Gap 10 mmol/L; Blood Urea Nitrogen 34 mg/dL (9-20); Calcium 9.2 mg/dL (8.4-10.2); Carbon Dioxide 23 mmol/L (22-30); Chloride 100 mmol/L (98-107); Glucose 94 mg/dL (74-99); Non-African American GFR(CKD) >90 (>60 ml/min/1.73 sqM); Sodium 133 mmol/L (137-145); Total Bilirubin 0.7 mg/dL (0.2-1.3); Total Protein 6.4 g/dL (6.3-8.2)
[2021-02-16 08:57] LABS: AST 142 U/L (17-59); Alkaline Phosphatase 82 U/L (38-126); Potassium 5.2 mmol/L (3.5-5.1)
[2021-02-16 10:20] LABS: HCT 43.8 % (39.0-53.0); HGB 15.1 gm/dL (13.0-17.5); MCH 32.6 pg (25.0-35.0); MCHC 34.3 g/dL (31.0-37.0); MCV 95.1 fL (80.0-100.0); Mean Platelet Volume 9.5; Platelet Count 514 k/uL (150-450); RBC 4.61 m/uL (4.30-5.90)
[2021-02-16 12:00] LABS: Band Neutrophils % 3 %; Metamyelocytes # (M) 0.54 k/uL (0); Metamyelocytes % 2 %; Myelocytes % 3 %; Neutrophils % (M) 84 %; Nucleated Red Blood Cells 1 /100 WBC (0-0); Total Cells Counted 200
[2021-02-16 12:01] LABS: Monocytes # (M) 2.14 k/uL (0-1.0); WBC 26.8 k/uL (3.8-10.6)
[2021-02-16 12:20] LABS: Glucose,Whole Blood 108 mg/dL (75-99)
--- NOTE | 2021-02-16 12:42 | P.PN ---
Subjective Progress Note Date: 02/16/21 Principal diagnosis: Acute hypoxic respiratory failure secondary to COVID-19 pneumonia 02/09/2021, patient is essentially unchanged. Remains on Airvo at 60 L an FiO2 of 90% along with a nonrebreather facemask. Chest x-ray findings are essentially stable with diffuse bilateral pulmonary infiltrates, unchanged with daily comparison. He remains on a combination of Decadron and Baricitinib and the patient is also on Lovenox 40 mg subcu every 12 hours. Inflammatory markers from today was noted. There is a slight drop the LDH which is currently down to 1513. CRP is down to 1.8, and the d-dimer currently is at 13.9. No other significant events overnight. The patient continues to desaturate easily. No interval worsening shortness of breath. His condition is overall stable. We'll keep him on the same oxygen setting which is a Airvo at 60 L along with 100% nonrebreather facemask for now. He is tolerating his diet. No nausea. No vomiting. No altered mentation. She was given a dose of Lasix yesterday with excellent urine output and he has a negative fluid balance is. His IV fluids currently are KVO 02/10/2021, the patient's condition remains essentially unchanged. His condition is stable. He remains on high flow oxygen at 6 L with an FiO2 of 90% along with 100% nonrebreather facemask. Yesterday, while being transported to have a bowel movement, the patient desaturated and however following his saturation was able to overcome that his situation gradually improved and is currently above 90%. His white cell count is 14.8. His d-dimer is down to 10.9. The rest of the inflammatory markers are also improving and the patient has an LDH of 1395 and his CRP is down to 1.4. He remains on a combination of Decadron and Baricitinib. He is also on Lovenox for DVT prophylaxis. No other new complaints. No fever. He is tolerating his diet. No oropharyngeal candidiasis. Using incentive spirometer. No signs of any fluid overload. IV fluids are currently at KVO and the patient was given a dose of Lasix yesterday. 02/11/2021, patient remains in the ICU, remains on airvo, and 60% slow and 90% FiO2, his IV fluid is at KVO, patient remains marginal and his O2 saturation is barely in the low 90s. Patient tells me that his feeling better today, breathing easier. D-dimer was noted to be elevated, hence I recommended a CT angiogram of the chest, mostly because of the findings on the chest x-ray did not correlate with his profound degree of hypoxia and desaturation. WBC count today is 15.5 hemoglobin 13.9. D-dimer today is 10.98 electrolytes are normal renal profile is normal, in the meantime I'm going to recommend that we increase the dose of Lovenox. Venous Doppler on 02/05 was negative for deep vein thrombosis. 02/12/2021, patient remains in the ICU, remains on high flow oxygen, he is on airvo at 90% and 60 L flow, patient is basically about the same as yesterday, not much of a change, he does seem to be comfortable, his O2 saturation remains marginal in the low 90s. His CT angiogram of the chest was negative for pulm onary embolism. WBC count today is 14.2 hemoglobin 14.1. D-dimer was 10.98 yesterday. Again he had a negative CT angiogram of the chest. And negative Doppler of the legs. Electrolytes are normal renal profile is normal. Patient remains on the COVID-19 cocktail, he is also on Lovenox 40 mg subcu twice a day, he is still on baricitinib and on Decadron at 6 mg by mouth twice a day. He is on GI prophylaxis. Not quite ready to be transferred out of the ICU, but if he remains about the same, may transfer the patient out to the floor in the next 24 hours. 02/13/2021, patient remains in the ICU, remains on high oxygen, no change since yesterday, patient is feeling clinically a bit better, breathing easier, but his overall status is basically the same. O2 saturation remains very marginal in the low 90s. Patient is afebrile. He is hemodynamically stable. WBC count of 17.9 hemoglobin is 13.9, basic metabolic profile is normal renal profile is normal. CT angiogram showed no evidence of thrombus embolic disease. Patient remains on Lovenox 40 mg subcu twice a day 4 elevated d-dimer. Remains on baricitinib, and on the rest of the COVID-19 cocktail including Decadron 6 mg by mouth twice a day. Reevaluated today on 02/14/2021, patient is basically the same compared to yesterday and compared to the last few days. Remains on high flow oxygen, patient is on 90%, 60 L flow, and he is also on non-rebreather mask. O2 saturations remained marginal, patient is feeling better clinically. 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 WBC count is the same as yesterday 17.6. CBC is relatively normal. Renal profile is normal. Liver enzymes are a bit elevated. Last LDH few days ago was 1395 and C-reactive protein 1.4. The patient is seen today 02/15/2021 in follow-up in the intensive care unit. He is currently still requiring AirVo high flow oxygen at 60 L and 90% FiO2 with a nonrebreather mask. He is doing about the same compared to yesterday. No worsening shortness of breath. His appetite remains good. Chest x-ray continues to show patchy basilar infiltrates. Unchanged. We count 21.0. Hemoglobin 14.7. Platelets 656. Lymphocytes 0.63. Sodium 131. Potassium 4.8. Creatinine 0.88. AST 86. ALT 229. He is continued on Baricitinib, Decadron, Lovenox vitamin supplements. No IV fluids currently. Reevaluated today on 02/16/2021, patient remains on high flow oxygen, he is presently on airvo at 85% and 60 L flow. O2 saturation is in the low 90s. Clinically the patient is feeling a bit better, breathing a bit easier, nonetheless he continues to remain on relatively high flow oxygen. Patient is noted to have leukocytosis today with WBC of 26.8 hemoglobin is 15.1. He is afebrile. And I am a bit concerned about his white count steadily going up. Chest x-ray 2 days ago continues to show bilateral infiltrates. I will recommend checking a broken stone in level on this patient, and if elevated may start him on antibiotics and discontinue baricitinib Objective - Vital Signs Vital signs: Vital Signs Temp 97.3 F L 02/16/21 04:00 Pulse 109 H 02/16/21 04:00 Resp 22 02/16/21 04:00 BP 144/76 02/16/21 04:00 Pulse Ox 94 L 02/16/21 08:38 Intake & Output 02/15/21 02/16/2102/16/21 18:59 06:59 18:59 Intake Total 2218 260 Output Total 1600 200 Balance 618 -200 260 Intake: Oral 2218 260 Output: Urine 1600 200 Other: Voiding Method Urinal - Exam Physical Exam: Revealed a 56-year-old white male in no distress on high flow oxygen. Patient is presently on 85% and 60 L flow. Head: Atraumatic, normocephalic. HEENT:[Neck is supple.] [No neck masses.] [No thyromegaly.] [No JVD.] Lexi, EOMI, nonicteric, Chest: [Symmetrical chest expansion, crackles at the bases. No rhonchi no wheezes. Cardiac Exam: [Normal S1 and S2, no S3 gallop, no murmur.] Abdomen: [Soft, nontender, no megaly, no rebound, no guarding, normal bowel sounds.] Extremities: [No clubbing, no edema, no cyanosis.] Neurological Exam: Alert and oriented 3. [No focal neurologic deficit.] Psychiatric: Normal mood affect, normal mental status. - Labs CBC & Chem 7: 02/16/21 07:38 02/16/21 07:38 Labs: Abnormal Lab Results - Last 24 Hours (Table) 02/15/21 02/15/21 02/15/21 Range/Units 16:40 21:09 23:54 WBC (3.8-10.6) k/uL Plt Count (150-450) k/uL Neutrophils # (Manual) (1.3-7.7) k/uL Lymphocytes # (Manual) (1.0-4.8) k/uL Monocytes # (Manual) (0-1.0) k/uL Metamyelocytes # (Man) (0) k/uL Myelocytes # (Manual) (0) k/uL Nucleated RBCs (0-0) /100 WBC Sodium (137-145) mmol/L Potassium (3.5-5.1) mmol/L BUN (9-20) mg/dL POC Glucose (mg/dL) 127 H 112 H 124 H (75-99) mg/dL AST (17-59) U/L ALT (4-49) U/L 02/16/21 02/16/21 02/16/21 Range/Units 05:42 07:38 07:38 WBC 26.8 H (3.8-10.6) k/uL Plt Count 514 H (150-450) k/uL Neutrophils # (Manual) 23.30 H (1.3-7.7) k/uL Lymphocytes # (Manual) 0.80 L (1.0-4.8) k/uL Monocytes # (Manual) 2.14 H (0-1.0) k/uL Metamyelocytes # (Man) 0.54 H (0) k/uL Myelocytes # (Manual) 0.80 H (0) k/uL Nucleated RBCs 1 H (0-0) /100 WBC Sodium 133 L (137-145) mmol/L Potassium 5.2 H (3.5-5.1) mmol/L BUN 34 H (9-20) mg/dL POC Glucose (mg/dL) 127 H (75-99) mg/dL AST 142 H (17-59) U/L ALT 445 H (4-49) U/L // Range/Units 12:18 WBC (3.8-10.6) k/uL Plt Count (150-450) k/uL Neutrophils # (Manual) (1.3-7.7) k/uL Lymphocytes # (Manual) (1.0-4.8) k/uL Monocytes # (Manual) (0-1.0) k/uL Metamyelocytes # (Man) (0) k/uL Myelocytes # (Manual) (0) k/uL Nucleated RBCs (0-0) /100 WBC Sodium (137-145) mmol/L Potassium (3.5-5.1) mmol/L BUN (9-20) mg/dL POC Glucose (mg/dL) 108 H (75-99) mg/dL AST (17-59) U/L ALT (4-49) U/L Assessment and Plan Assessment: Acute hypoxic respiratory failure secondary to COVID-19 pneumonia Elevated inflammatory markers and d-dimer secondary to COVID-19 infection. Benign essential hypertension. Leukocytosis, no clear-cut evidence of bacterial infection, Recommendation: Repeat chest x-ray in a.m. Continue to titrate oxygen accordingly. Order pro calcitonin level and decide on the treatment or on starting antibiotics. Continue Decadron 6 mg IV push every 12 hours Continue baricitinib for now but consider stopping it if pro calcitonin level is high. Continue Lovenox at 40 mg subcu every 12 hours We'll continue to follow. Time with Patient: Less than 30
[2021-02-16 16:45] LABS: Glucose,Whole Blood 134 mg/dL (75-99)
[2021-02-16] MEDS: BARICITINIB 2 MG TABLET PO SCH (17:30)
[2021-02-16 19:34] LABS: Glucose,Whole Blood 136 mg/dL (75-99)
[2021-02-17 00:09] LABS: Glucose,Whole Blood 142 mg/dL (75-99)
[2021-02-17] MEDS: INSULIN ASPART (NovoLOG) 100 UNIT/ML VIAL SQ SCH ×4 (00:11→16:59)
[2021-02-17] MEDS: PANTOPRAZOLE 40 MG TABLET PO SCH ×2 (06:32→15:26)
[2021-02-17 06:48] LABS: Glucose,Whole Blood 146 mg/dL (75-99)
--- NOTE | 2021-02-17 08:38 | P.PN ---
Subjective Progress Note Date: 02/16/21 Progress Note Date: 02/16/21 HISTORY OF PRESENT ILLNESS: This is a 56-year-old male with a past medical history significant for hypertension and hypertensive cardiovascular disease, hyperlipidemia, history of tobacco use and dependence, presented to the emergency department at [facility] with increased coughing and increased shortness breath that started last and has been getting worse over the last few days, yesterday he was extremely short of breath and his oxygen saturation was in the low 70s, his tried to get him to the ER but eventually called 911 and the patient was brought into the ER at [facility] where he had a chest x-ray that did show evidence of bilateral patchy infiltrate suggestive of Covid pneumonia, his COVID-19 PCR was positive, patient was started on nonrebreather, and later on was seen in consultation by pulmonary medicine and he was placed on Airvo and was started on Bacitinib 4 mg po daily and the patient was admitted to the hospital for further evaluation and treatment. 02/05: A shunt is currently on AirVol. He has complained of feeling tired and complaining of gastric reflux. Protonix will be increased to 40 mg IV push twice daily. Patient is been seen by pulmonary medicine and started on Bar icitinib, continued on dexamethasone 6 mg twice daily, Lovenox 40 mg daily. He has been afebrile, heart rate 92, blood pressure 137/86, pulse ox 97%. Repeat blood work reveals WBC 2.2, d-dimer 3.33, blood sugar 143. LDH 735, C-reactive protein 15.5. Chest x-ray reveals chronic emphysematous and pulmonary fibrotic changes with bilateral multifocal reticular nodular opacities consistent with COVID-19. Perhaps slight improvement in the right lung base. Ultrasound of bilateral lower extremities negative for DVT. 02/06: Last evening, patient was transferred into the intensive care unit as he was on 15 L nonrebreather was transitioned over to AirVo 60 L 90% with nonrebreather on top. Pulse ox is currently running 84-87%. He has been afebrile, heart rate in the 80s and 90s, respiratory rate 29, blood pressure 131/82. Patient is requesting Cepacol lozenges and nasal spray added. Ensure 3 times daily also added, patient has decreased appetite and limited oral intake. Repeat blood work reveals WBC 4.9, hemoglobin 13.6. Platelet count 381. D- dimer 2.15. LDH 1685. C-reactive protein 5.6. Repeat chest x-ray revealed continue his Covid infiltrate superimposed on bollous emphysema. Slight improvement in aeration in the right upper lobe. Patient is continued on dexamethasone, Lovenox, vitamin supplements and Baricitinib. 02/07:patient remains in the intensive care unit. He is on nonrebreather mask as well as high flow AirVo with O2 at 60 L, FiO2 90%. patient remains afebrile, heart rate in the 70s, respiratory rate 26, blood pressure 127/79, pulse ox 86- 88%, pulse ox drops in the low 80s when patient ate's. He is on ensure 3 times daily. Patient is complaining of some cough and back pain when he coughs. He is less fatigued today. 02/08: Patient remains in intensive care unit currently on nonrebreather, as well as a high flow airflow oxygen still borderline at 89%, patient is eating his protein, hysterectomy 8 his breakfast, he has no chest pain at this time he continues to be extreme short of breath, he has no abdominal pain, he had lost some of the states, he has no headache, he has no hemoptysis, he has no pleurisy, he has no edema. 02/09: Patient sitting up in a chair his feeling a bit better. He continues to be on nonrebreather along with airflow 60 L, he denies any chest pain, his continues to be somewhat short of breath, he continues to struggle with breathing, has no abdominal pain, he had a good bowel movement yesterday, he is tolerating his food, patient is stable at this point in time, he will stay in the intensive care unit due to his oxygen requirement, chest x-ray showed bilateral diffuse infiltrate suggestive of Covid pneumonia, he continues to be on Decadron 6 mg orally twice every day, we'll continue conservative management continue supportive care continue Baricitinib daily for a total of 14 doses today is 08/10 02/10: Patient is feeling better today he continues to be on airVO and NRB, continues to require a lot of oxygen, sitting up and eating his breakfast, he has no chest pain, no pleurisy, he does competitive achiness in the back of his legs, he is current;y on Baricitinib Day #6 out of 14. 02/11: Patient is seen today in the ICU. He is on AirVo had 90% 60 L and nonrebreather is used as needed. Patient is more mobile in his room. He has been afebrile, heart rate 81 and 96, blood pressure 127/72 area pulse ox 87-95%. Repeat blood work reveals WBC 15.5. Electrolytes normal. BUN 27 creatinine 0.84. Blood sugar 145. Liver function tests were normal. Patient is on regular diet and protein supplements. He is continued on Baricitinib, oral dexamethasone, Lovenox and supplements. 02/12: Patient remains in intensive care unit. He is on AirVo plus nonrebreather but he is keeping NRB in place except for oral intake. He has been afebrile, heart rate 89, respiratory rate 23-30, blood pressure 132/75, pulse ox 90%. CTA of the chest showed no pulmonary embolism. Small pericardial effusion. Extensive emphysematous changes and/or pulmonary fibrosis. Patient is on regular diet and protein supplements. No vomiting or diarrhea. WBC 14.2. Creatinine 0.76. Blood sugar 142. ALT 71. 02/13: Patient is currently on AirVo and nonrebreather with pulse ox 82-96%. He has been afebrile, heart rate in the 90s, respiratory rate 19-36. Blood pressure 132/84. WBC 17.9. Sodium 134. Blood sugar 125. Patient is continued on supplements, Baricitinib, dexamethasone and Lovenox. 02/14: Patient remains in the intensive care unit on airvo and nonrebreather. He states he was up in a chair for a little while yesterday. He still has coughing, no fever or chills. He is taking protein supplement. Patient has been afebrile, heart rate 97, blood pressure 139/88, respiratory rate 24, pulse ox 92%. WBC 17.6. Sodium 131. Patient is continued on supplements, Baricitinib, dexamethasone and Lovenox. 02/15: Patient remains in the intensive care unit on AirVo and nonrebreather with pulse ox of 94%. Patient's been afebrile, heart rate 86, respiratory rate 22, blood pressure 120/75. Review blood work reveals WBC 21. AST 82, ALT 229. Sodium 131, potassium 4.8, creatinine 0.88. Patient is complaining of oral pain, grinding his teeth. Patient is continued on supplements, Baricitinib, dex amethasone and Lovenox. 02/16: Patient moved out of the ICU, his currently in the telemetry unit, his monitor showing sinus tachycardia with PACs, he continues to be on airVo and nonrebreather his oxygen is about 93%, it does drop to 88-89% with activity and exertion, he continues to be generally weak, he has no chest pain at this time, he has no pleurisy, there is no hemoptysis, he has no abdominal pain, nausea or vomiting, he seems to be tolerating her treatment very well. REVIEW OF SYSTEMS: Constitutional: Denies fever, chills, night sweats. No weight change. positive for weakness, reports fatigue no lethargy. Reports daytime sleepiness. HEENT: No headache. No nasal drainage or congestion. No epistaxis. Reports sore throat. Lungs: Continued shortness of breath, positive for cough, positive for sputum production. positive for wheezing. Reports dyspnea with minimal activity. Cardiovascular: No chest pain, no lower extremity edema. No palpitations. No paroxysmal nocturnal dyspnea. No orthopnea. No lightheadedness or dizziness. No syncopal episodes. Abdominal: denies abdominal pain. No nausea, vomiting. No diarrhea. No constipation. No bloody or tarry stools. Reports loss of appetite. Reports gastric reflux. Genitourinary: No dysuria, increased frequency, urgency. No urinary retention. Musculoskeletal: positive for myalgias. positive for generalized muscle weakness, no gait dysfunction, no frequent falls. No back pain. No neck pain. Integumentary: No wounds, no lesions. No rash or pruritus. No unusual bruising. Neurologic: No aphasia. No facial droop. No change in mentation. No head injury. No headache. No paralysis. No paresthesia. Psychiatric: No depression. No anxiety. Endocrine: No abnormal blood sugars. No weight change. PHYSICAL EXAMINATION: General: 56-year-old male in bed in no acute respiratory distress HEENT: Head is atraumatic, normocephalic, pupils were equal round, sclera nonicteric, conjunctivae were pale, mucous membranes of the mouth are slightly dry. Neck: Supple, no JVP, normal carotid upstroke bilaterally, no lymphadenopathy. Chest: Decreased breath sounds at the bases, few rhonchi, moderate expiratory wheezes, no chest wall tenderness, no intercostal retractions at rest. Heart: First heart sound is normal, second heart sounds normal, there is no gallop or murmur. Abdomen: Soft, nontender, nondistended, positive bowel sounds, no hepatosplenomegaly. Extremities: There is no edema no calf tenderness DP +2 bilaterally. Neurologic examination: Patient is awake alert and oriented X 3, cranial nerves II-12 appear grossly intact. ASSESSMENT AND PLAN: 1. Acute hypoxemic respiratory failure due to bilateral patchy interstitial pneumonia due to COVID-19 pneumonia. Continue patient on Decadron 6 mg orally twice every day, Vitamin C 1000 mg orally once every day, zinc 220 mg once every day, vitamin D 1000 units once every day, Baricitinib 4 mg orally once every day for 14 doses, continue oxygen therapy on 100% nonrebreather and AirVo, continue care in the intensive care unit. 2. Bilateral Covid pneumonia with ARDS. Continue with Airvo and nonrebreather, continue dexamethasone 6 mg orally twice every day, continue with supportive care. 3. Mild non-anion gap metabolic acidosis. Resolved. 4. Moderate protein calorie malnutrition secondary to decreased appetite and difficulty eating with oxygen mask. Continue Ensure 3 times daily. 5. DVT prophylaxis. Continue Lovenox 40 mg subcutaneously every 24 hours 6. GERD and GI prophylaxis. Continue patient on Protonix 40 mg IV push every 12 hours as well as Carafate 1 g orally twice every day . 7. Patient is full code. Objective - Vital Signs Vital signs: Vital Signs Temp 97.3 F L 02/16/21 04:00 Pulse 109 H 02/16/21 04:00 Resp 22 02/16/21 04:00 BP 144/76 02/16/21 04:00 Pulse Ox 91 L 02/16/21 04:32 Intake & Output 02/15/21 02/16/21 02/16/21 18:59 06:59 18:59 Intake Total 2218 260 Output Total 1600 200 Balance 618 -200 260 Intake: Oral 2218 260 Output: Urine 1600 200 Other: Voiding Method Urinal - Labs CBC & Chem 7: 02/16/21 07:38 02/16/21 07:38 Labs: Abnormal Lab Results - Last 24 Hours (Table) 02/15/21 02/15/21 02/15/21 Range/Units 11:58 16:40 21:09 POC Glucose (mg/dL) 119 H 127 H 112 H (75-99) mg/dL 02/15/21 02/16/21 Range/Units 23:54 05:42 POC Glucose (mg/dL) 124 H 127 H (75-99) mg/dL
[2021-02-17] MEDS: MULTIVITAMINS, THERA 1 EACH TAB PO SCH (09:04)
[2021-02-17] MEDS: ASCORBIC ACID 500 MG TAB PO SCH (09:04)
[2021-02-17] MEDS: ENOXAPARIN 40 MG/0.4 ML SYRINGE SQ SCH ×2 (09:04→21:13)
[2021-02-17] MEDS: ZINC SULFATE 220 MG CAP PO SCH (09:04)
[2021-02-17] MEDS: CHOLECALCIFEROL 25 MCG (1000 IU) TABLET PO SCH (09:04)
[2021-02-17] MEDS: dexAMETHasone 2 MG TAB PO SCH ×2 (09:04→21:14)
[2021-02-17 09:12] LABS: Basophils # (A) 0.2 k/uL (0-0.2); Basophils % (A) 1 %; Eosinophils % (A) 0 %; HCT 42.8 % (39.0-53.0); HGB 14.2 gm/dL (13.0-17.5); Lymphocytes # (A) 0.7 k/uL (1.0-4.8); Lymphocytes % (A) 3 %; MCH 31.6 pg (25.0-35.0); MCHC 33.3 g/dL (31.0-37.0); MCV 95.1 fL (80.0-100.0); Mean Platelet Volume 8.2; Monocytes # (A) 1.8 k/uL (0-1.0); Monocytes % (A) 7 %; Neutrophils # (A) 23.5 k/uL (1.3-7.7); Neutrophils % (A) 89 %; Platelet Count 546 k/uL (150-450); RDW 13.4 % (11.5-15.5); WBC 26.3 k/uL (3.8-10.6)
[2021-02-17 09:17] LABS: AST 289 U/L (17-59); African American GFR (CKD) >90 (>60 ml/min/1.73 sqM); Albumin 3.3 g/dL (3.5-5.0); Alkaline Phosphatase 100 U/L (38-126); Anion Gap 10 mmol/L; Blood Urea Nitrogen 33 mg/dL (9-20); Calcium 9.2 mg/dL (8.4-10.2); Carbon Dioxide 22 mmol/L (22-30); Chloride 101 mmol/L (98-107); Glucose 131 mg/dL (74-99); Non-African American GFR(CKD) 82 (>60 ml/min/1.73 sqM); Potassium 4.7 mmol/L (3.5-5.1); Sodium 133 mmol/L (137-145); Total Bilirubin 0.5 mg/dL (0.2-1.3)
[2021-02-17 09:30] LABS: ALT 671 U/L (4-49)
--- NOTE | 2021-02-17 09:41 | XR ---
EXAMINATION TYPE: XR chest 1V portable DATE OF EXAM: 02/17/2021 COMPARISON: 02/14/2021 HISTORY: 56 years Male. STUDY INDICATION GIVEN: covid pneumonia . TECHNIQUE: AP chest radiograph IMPRESSION: Relatively unchanged appearance of the lungs with redemonstration of left greater than right intersti tial and airspace opacities. No pneumothorax or pleural effusion. Stable cardiomediastinal silhouette.
--- NOTE | 2021-02-17 10:13 | P.PN ---
Subjective Progress Note Date: 02/17/21 Progress Note Date: 02/17/21 HISTORY OF PRESENT ILLNESS: This is a 56-year-old male with a past medical history significant for hypertension and hypertensive cardiovascular disease, hyperlipidemia, history of tobacco use and dependence, presented to the emergency department at [facility] with increased coughing and increased shortness breath that started last and has been getting worse over the last few days, yesterday he was extremely short of breath and his oxygen saturation was in the low 70s, his tried to get him to the ER but eventually called 911 and the patient was brought into the ER at [facility] where he had a chest x-ray that did show evidence of bilateral patchy infiltrate suggestive of Covid pneumonia, his COVID-19 PCR was positive, patient was started on nonrebreather, and later on was seen in consultation by pulmonary medicine and he was placed on Airvo and was started on Bacitinib 4 mg po daily and the patient was admitted to the hospital for further evaluation and treatment. 02/05: A shunt is currently on AirVol. He has complained of feeling tired and complaining of gastric reflux. Protonix will be increased to 40 mg IV push twice daily. Patient is been seen by pulmonary medicine and started on Bar icitinib, continued on dexamethasone 6 mg twice daily, Lovenox 40 mg daily. He has been afebrile, heart rate 92, blood pressure 137/86, pulse ox 97%. Repeat blood work reveals WBC 2.2, d-dimer 3.33, blood sugar 143. LDH 735, C-reactive protein 15.5. Chest x-ray reveals chronic emphysematous and pulmonary fibrotic changes with bilateral multifocal reticular nodular opacities consistent with COVID-19. Perhaps slight improvement in the right lung base. Ultrasound of bilateral lower extremities negative for DVT. 02/06: Last evening, patient was transferred into the intensive care unit as he was on 15 L nonrebreather was transitioned over to AirVo 60 L 90% with nonrebreather on top. Pulse ox is currently running 84-87%. He has been afebrile, heart rate in the 80s and 90s, respiratory rate 29, blood pressure 131/82. Patient is requesting Cepacol lozenges and nasal spray added. Ensure 3 times daily also added, patient has decreased appetite and limited oral intake. Repeat blood work reveals WBC 4.9, hemoglobin 13.6. Platelet count 381. D- dimer 2.15. LDH 1685. C-reactive protein 5.6. Repeat chest x-ray revealed continue his Covid infiltrate superimposed on bollous emphysema. Slight improvement in aeration in the right upper lobe. Patient is continued on dexamethasone, Lovenox, vitamin supplements and Baricitinib. 02/07:patient remains in the intensive care unit. He is on nonrebreather mask as well as high flow AirVo with O2 at 60 L, FiO2 90%. patient remains afebrile, heart rate in the 70s, respiratory rate 26, blood pressure 127/79, pulse ox 86- 88%, pulse ox drops in the low 80s when patient ate's. He is on ensure 3 times daily. Patient is complaining of some cough and back pain when he coughs. He is less fatigued today. 02/08: Patient remains in intensive care unit currently on nonrebreather, as well as a high flow airflow oxygen still borderline at 89%, patient is eating his protein, hysterectomy 8 his breakfast, he has no chest pain at this time he continues to be extreme short of breath, he has no abdominal pain, he had lost some of the states, he has no headache, he has no hemoptysis, he has no pleurisy, he has no edema. 02/09: Patient sitting up in a chair his feeling a bit better. He continues to be on nonrebreather along with airflow 60 L, he denies any chest pain, his continues to be somewhat short of breath, he continues to struggle with breathing, has no abdominal pain, he had a good bowel movement yesterday, he is tolerating his food, patient is stable at this point in time, he will stay in the intensive care unit due to his oxygen requirement, chest x-ray showed bilateral diffuse infiltrate suggestive of Covid pneumonia, he continues to be on Decadron 6 mg orally twice every day, we'll continue conservative management continue supportive care continue Baricitinib daily for a total of 14 doses today is 08/10 02/10: Patient is feeling better today he continues to be on airVO and NRB, continues to require a lot of oxygen, sitting up and eating his breakfast, he has no chest pain, no pleurisy, he does competitive achiness in the back of his legs, he is current;y on Baricitinib Day #6 out of 14. 02/11: Patient is seen today in the ICU. He is on AirVo had 90% 60 L and nonrebreather is used as needed. Patient is more mobile in his room. He has been afebrile, heart rate 81 and 96, blood pressure 127/72 area pulse ox 87-95%. Repeat blood work reveals WBC 15.5. Electrolytes normal. BUN 27 creatinine 0.84. Blood sugar 145. Liver function tests were normal. Patient is on regular diet and protein supplements. He is continued on Baricitinib, oral dexamethasone, Lovenox and supplements. 02/12: Patient remains in intensive care unit. He is on AirVo plus nonrebreather but he is keeping NRB in place except for oral intake. He has been afebrile, heart rate 89, respiratory rate 23-30, blood pressure 132/75, pulse ox 90%. CTA of the chest showed no pulmonary embolism. Small pericardial effusion. Extensive emphysematous changes and/or pulmonary fibrosis. Patient is on regular diet and protein supplements. No vomiting or diarrhea. WBC 14.2. Creatinine 0.76. Blood sugar 142. ALT 71. 02/13: Patient is currently on AirVo and nonrebreather with pulse ox 82-96%. He has been afebrile, heart rate in the 90s, respiratory rate 19-36. Blood pressure 132/84. WBC 17.9. Sodium 134. Blood sugar 125. Patient is continued on supplements, Baricitinib, dexamethasone and Lovenox. 02/14: Patient remains in the intensive care unit on airvo and nonrebreather. He states he was up in a chair for a little while yesterday. He still has coughing, no fever or chills. He is taking protein supplement. Patient has been afebrile, heart rate 97, blood pressure 139/88, respiratory rate 24, pulse ox 92%. WBC 17.6. Sodium 131. Patient is continued on supplements, Baricitinib, dexamethasone and Lovenox. 02/15: Patient remains in the intensive care unit on AirVo and nonrebreather with pulse ox of 94%. Patient's been afebrile, heart rate 86, respiratory rate 22, blood pressure 120/75. Review blood work reveals WBC 21. AST 82, ALT 229. Sodium 131, potassium 4.8, creatinine 0.88. Patient is complaining of oral pain, grinding his teeth. Patient is continued on supplements, Baricitinib, dex amethasone and Lovenox. 02/16: Patient moved out of the ICU, his currently in the telemetry unit, his monitor showing sinus tachycardia with PACs, he continues to be on airVo and nonrebreather his oxygen is about 93%, it does drop to 88-89% with activity and exertion, he continues to be generally weak, he has no chest pain at this time, he has no pleurisy, there is no hemoptysis, he has no abdominal pain, nausea or vomiting, he seems to be tolerating her treatment very well. 02/17: Patient is about the same he continues to be in a telemetry unit, he continues to have sinus tachycardia, he continues to be on same oxygen he continues to be about the same, he is currently maintained on Decadron as well as Baricitinib for a total of 14 doses, we will continue to monitor his liver function tests, and as he continues to have transaminitis., Patient denies any chest pain at this time he has no abdominal pain, nausea vomiting or diarrhea. REVIEW OF SYSTEMS: Constitutional: Denies fever, chills, night sweats. No weight change. positive for weakness, reports fatigue no lethargy. Reports daytime sleepiness. HEENT: No headache. No nasal drainage or congestion. No epistaxis. Reports sore throat. Lungs: Continued shortness of breath, positive for cough, positive for sputum production. positive for wheezing. Reports dyspnea with minimal activity. Cardiovascular: No chest pain, no lower extremity edema. No palpitations. No paroxysmal nocturnal dyspnea. No orthopnea. No lightheadedness or dizziness. No syncopal episodes. Abdominal: denies abdominal pain. No nausea, vomiting. No diarrhea. No constipation. No bloody or tarry stools. Reports loss of appetite. Reports g astric reflux. Genitourinary: No dysuria, increased frequency, urgency. No urinary retention. Musculoskeletal: positive for myalgias. positive for generalized muscle weakness, no gait dysfunction, no frequent falls. No back pain. No neck pain. Integumentary: No wounds, no lesions. No rash or pruritus. No unusual bruising. Neurologic: No aphasia. No facial droop. No change in mentation. No head injury. No headache. No paralysis. No paresthesia. Psychiatric: No depression. No anxiety. Endocrine: No abnormal blood sugars. No weight change. PHYSICAL EXAMINATION: General: 56-year-old male in bed in no acute respiratory distress HEENT: Head is atraumatic, normocephalic, pupils were equal round, sclera nonicteric, conjunctivae were pale, mucous membranes of the mouth are slightly dry. Neck: Supple, no JVP, normal carotid upstroke bilaterally, no lymphadenopathy. Chest: Decreased breath sounds at the bases, few rhonchi, moderate expiratory wheezes, no chest wall tenderness, no intercostal retractions at rest. Heart: First heart sound is normal, second heart sounds normal, there is no gallop or murmur. Abdomen: Soft, nontender, nondistended, positive bowel sounds, no hepatosplenomegaly. Extremities: There is no edema no calf tenderness DP +2 bilaterally. Neurologic examination: Patient is awake alert and oriented X 3, cranial nerves II-12 appear grossly intact. ASSESSMENT AND PLAN: 1. Acute hypoxemic respiratory failure due to bilateral patchy interstitial pneumonia due to COVID-19 pneumonia. Continue patient on Decadron 6 mg orally twice every day, Vitamin C 1000 mg orally once every day, zinc 220 mg once every day, vitamin D 1000 units once every day, Baricitinib 4 mg orally once every day for 14 doses, continue oxygen therapy on 100% nonrebreather and AirVo, continue care in the intensive care unit. 2. Bilateral Covid pneumonia with ARDS. Continue with Airvo and nonrebreather, continue dexamethasone 6 mg orally twice every day, continue with supportive care. 3. Mild non-anion gap metabolic acidosis. Resolved. 4. Moderate protein calorie malnutrition secondary to decreased appetite and difficulty eating with oxygen mask. Continue Ensure 3 times daily. 5. Acute drug-induced hepatitis. Monitor the patient CMP in the next 24 hours. 6. DVT prophylaxis. Continue Lovenox 40 mg subcutaneously every 24 hours 7. GERD and GI prophylaxis. Continue patient on Protonix 40 mg IV push every 12 hours as well as Carafate 1 g orally twice every day . 8. Patient is full code. 9. Guarded prognosis. Objective - Vital Signs Vital signs: Vital Signs Temp 97.5 F L 02/17/21 00:00 Pulse 106 H 02/17/21 04:00 Resp 22 02/17/21 00:00 BP 149/90 02/17/21 00:00 Pulse Ox 92 L 02/17/21 07:50 Intake & Output 02/16/21 02/17/21 02/17/21 18:59 06:59 18:59 Intake Total 260 600 Output Total 1775 Balance 260 -1175 Intake: Oral 260 600 Output: Urine 1775 Other: # Voids 1 # Bowel Movements 1 - Labs CBC & Chem 7: 02/16/21 07:38 02/16/21 07:38 Labs: Abnormal Lab Results - Last 24 Hours (Table) 02/16/21 02/16/21 02/16/21 Range/Units 07:38 07:38 12:18 WBC 26.8 H (3.8-10.6) k/uL Plt Count 514 H (150-450) k/uL Neutrophils # (Manual) 23.30 H (1.3-7.7) k/uL Lymphocytes # (Manual) 0.80 L (1.0-4.8) k/uL Monocytes # (Manual) 2.14 H (0-1.0) k/uL Metamyelocytes # (Man) 0.54 H (0) k/uL Myelocytes # (Manual) 0.80 H (0) k/uL Nucleated RBCs 1 H (0-0) /100 WBC Sodium 133 L (137-145) mmol/L Potassium 5.2 H (3.5-5.1) mmol/L BUN 34 H (9-20) mg/dL POC Glucose (mg/dL) 108 H (75-99) mg/dL AST 142 H (17-59) U/L ALT 445 H (4-49) U/L 02/16/21 02/16/21 02/17/21 Range/Units 16:44 19:32 00:08 WBC (3.8-10.6) k/uL Plt Count (150-450) k/uL Neutrophils # (Manual) (1.3-7.7) k/uL Lymphocytes # (Manual) (1.0-4.8) k/uL Monocytes # (Manual) (0-1.0) k/uL Metamyelocytes # (Man) (0) k/uL Myelocytes # (Manual) (0) k/uL Nucleated RBCs (0-0) /100 WBC Sodium (137-145) mmol/L Potassium (3.5-5.1) mmol/L BUN (9-20) mg/dL POC Glucose (mg/dL) 134 H 136 H 142 H (75-99) mg/dL AST (17-59) U/L ALT (4-49) U/L 02/17/21 Range/Units 06:15 WBC (3.8-10.6) k/uL Plt Count (150-450) k/uL Neutrophils # (Manual) (1.3-7.7) k/uL Lymphocytes # (Manual) (1.0-4.8) k/uL Monocytes # (Manual) (0-1.0) k/uL Metamyelocytes # (Man) (0) k/uL Myelocytes # (Manual) (0) k/uL Nucleated RBCs (0-0) /100 WBC Sodium (137-145) mmol/L Potassium (3.5-5.1) mmol/L BUN (9-20) mg/dL POC Glucose (mg/dL) 146 H (75-99) mg/dL AST (17-59) U/L ALT (4-49) U/L
[2021-02-17 12:15] LABS: Glucose,Whole Blood 105 mg/dL (75-99)
[2021-02-17] MEDS: BARICITINIB 2 MG TABLET PO SCH (15:26)
--- NOTE | 2021-02-17 15:53 | P.PN ---
Subjective Progress Note Date: 02/17/21 Principal diagnosis: Acute hypoxic respiratory failure secondary to COVID-19 pneumonia 02/09/2021, patient is essentially unchanged. Remains on Airvo at 60 L an FiO2 of 90% along with a nonrebreather facemask. Chest x-ray findings are essentially stable with diffuse bilateral pulmonary infiltrates, unchanged with daily comparison. He remains on a combination of Decadron and Baricitinib and the patient is also on Lovenox 40 mg subcu every 12 hours. Inflammatory markers from today was noted. There is a slight drop the LDH which is currently down to 1513. CRP is down to 1.8, and the d-dimer currently is at 13.9. No other significant events overnight. The patient continues to desaturate easily. No interval worsening shortness of breath. His condition is overall stable. We'll keep him on the same oxygen setting which is a Airvo at 60 L along with 100% nonrebreather facemask for now. He is tolerating his diet. No nausea. No vomiting. No altered mentation. She was given a dose of Lasix yesterday with excellent urine output and he has a negative fluid balance is. His IV fluids currently are KVO 02/10/2021, the patient's condition remains essentially unchanged. His condition is stable. He remains on high flow oxygen at 6 L with an FiO2 of 90% along with 100% nonrebreather facemask. Yesterday, while being transported to have a bowel movement, the patient desaturated and however following his saturation was able to overcome that his situation gradually improved and is currently above 90%. His white cell count is 14.8. His d-dimer is down to 10.9. The rest of the inflammatory markers are also improving and the patient has an LDH of 1395 and his CRP is down to 1.4. He remains on a combination of Decadron and Baricitinib. He is also on Lovenox for DVT prophylaxis. No other new complaints. No fever. He is tolerating his diet. No oropharyngeal candidiasis. Using incentive spirometer. No signs of any fluid overload. IV fluids are currently at KVO and the patient was given a dose of Lasix yesterday. 02/11/2021, patient remains in the ICU, remains on airvo, and 60% slow and 90% FiO2, his IV fluid is at KVO, patient remains marginal and his O2 saturation is barely in the low 90s. Patient tells me that his feeling better today, breathing easier. D-dimer was noted to be elevated, hence I recommended a CT angiogram of the chest, mostly because of the findings on the chest x-ray did not correlate with his profound degree of hypoxia and desaturation. WBC count today is 15.5 hemoglobin 13.9. D-dimer today is 10.98 electrolytes are normal renal profile is normal, in the meantime I'm going to recommend that we increase the dose of Lovenox. Venous Doppler on 02/05 was negative for deep vein thrombosis. 02/12/2021, patient remains in the ICU, remains on high flow oxygen, he is on airvo at 90% and 60 L flow, patient is basically about the same as yesterday, not much of a change, he does seem to be comfortable, his O2 saturation remains marginal in the low 90s. His CT angiogram of the chest was negative for pulm onary embolism. WBC count today is 14.2 hemoglobin 14.1. D-dimer was 10.98 yesterday. Again he had a negative CT angiogram of the chest. And negative Doppler of the legs. Electrolytes are normal renal profile is normal. Patient remains on the COVID-19 cocktail, he is also on Lovenox 40 mg subcu twice a day, he is still on baricitinib and on Decadron at 6 mg by mouth twice a day. He is on GI prophylaxis. Not quite ready to be transferred out of the ICU, but if he remains about the same, may transfer the patient out to the floor in the next 24 hours. 02/13/2021, patient remains in the ICU, remains on high oxygen, no change since yesterday, patient is feeling clinically a bit better, breathing easier, but his overall status is basically the same. O2 saturation remains very marginal in the low 90s. Patient is afebrile. He is hemodynamically stable. WBC count of 17.9 hemoglobin is 13.9, basic metabolic profile is normal renal profile is normal. CT angiogram showed no evidence of thrombus embolic disease. Patient remains on Lovenox 40 mg subcu twice a day 4 elevated d-dimer. Remains on baricitinib, and on the rest of the COVID-19 cocktail including Decadron 6 mg by mouth twice a day. Reevaluated today on 02/14/2021, patient is basically the same compared to yesterday and compared to the last few days. Remains on high flow oxygen, patient is on 90%, 60 L flow, and he is also on non-rebreather mask. O2 saturations remained marginal, patient is feeling better clinically. Not much of a cap coverer the last couple of days. WBC count is the same as yesterday 17.6. CBC is relatively normal. Renal profile is normal. Liver enzymes are a bit elevated. Last LDH few days ago was 1395 and C-reactive protein 1.4. The patient is seen today 02/15/2021 in follow-up in the intensive care unit. He is currently still requiring AirVo high flow oxygen at 60 L and 90% FiO2 with a nonrebreather mask. He is doing about the same compared to yesterday. No worsening shortness of breath. His appetite remains good. Chest x-ray continues to show patchy basilar infiltrates. Unchanged. We count 21.0. Hemoglobin 14.7. Platelets 656. Lymphocytes 0.63. Sodium 131. Potassium 4.8. Creatinine 0.88. AST 86. ALT 229. He is continued on Baricitinib, Decadron, Lovenox vitamin supplements. No IV fluids currently. Reevaluated today on 02/16/2021, patient remains on high flow oxygen, he is presently on airvo at 85% and 60 L flow. O2 saturation is in the low 90s. Clinically the patient is feeling a bit better, breathing a bit easier, nonetheless he continues to remain on relatively high flow oxygen. Patient is noted to have leukocytosis today with WBC of 26.8 hemoglobin is 15.1. He is afebrile. And I am a bit concerned about his white count steadily going up. Chest x-ray 2 days ago continues to show bilateral infiltrates. I will recommend checking a broken stone in level on this patient, and if elevated may start him on antibiotics and discontinue baricitinib Reevaluated today on 02/17/21, patient remains on high flow oxygen. He is actually on 90% FiO2, 40 L flow, and his O2 saturation is ranging between 90-93% at best. Clinically however the patient tells me that his feeling better, breathing easier, he has a good appetite, and he is sleeping well. Pro- calcitonin level came back 0.08, hence the possibility of underlying bacterial pneumonia is very unlikely. Chest x-ray showed relatively no change in his bilateral infiltrates. Basically about the same. WBC count remains elevated at 26.3 hemoglobin 14.2 electrolytes and renal profile are normal Objective - Vital Signs Vital signs: Vital Signs Temp 97.1 F L 02/17/21 15:35 Pulse 99 02/17/21 15:35 Resp 30 H 02/17/21 15:35 BP 130/88 02/17/21 15:35 Pulse Ox 90 L 02/17/21 15:35 Intake & Output 02/16/21 02/17/21 02/17/21 18:59 06:59 18:59 Intake Total 260 600 358 Output Total 1775 150 Balance 260 -1175 208 Intake: Oral 260 600 358 Output: Urine 1775 150 Other: # Voids 1 # Bowel Movements 1 - Exam Physical Exam: Revealed a 56-year-old white male in no distress on high flow oxygen. Head: Atraumatic, normocephalic. HEENT:[Neck is supple.] [No neck masses.] [No thyromegaly.] [No JVD.] Lexi, EOMI, nonicteric, Chest: [Symmetrical chest expansion, crackles at the bases. No rhonchi no wheezes. Cardiac Exam: [Normal S1 and S2, no S3 gallop, no murmur.] Abdomen: [Soft, nontender, no megaly, no rebound, no guarding, normal bowel sounds.] Extremities: [No clubbing, no edema, no cyanosis.] Neurological Exam: Alert and oriented 3. [No focal neurologic deficit.] Psychiatric: Normal mood affect, normal mental status. - Labs CBC & Chem 7: 02/17/21 08:42 02/17/21 08:42 Labs: Abnormal Lab Results - Last 24 Hours (Table) 02/16/21 02/16/21 02/17/21 Range/Units 16:44 19:32 00:08 WBC (3.8-10.6) k/uL Plt Count (150-450) k/uL Neutrophils # (1.3-7.7) k/uL Lymphocytes # (1.0-4.8) k/uL Monocytes # (0-1.0) k/uL Sodium (137-145) mmol/L BUN (9-20) mg/dL Glucose (74-99) mg/dL POC Glucose (mg/dL) 134 H 136 H 142 H (75-99) mg/dL AST (17-59) U/L ALT (4-49) U/L Total Protein (6.3-8.2) g/dL Albumin (3.5-5.0) g/dL 02/17/21 02/17/21 02/17/21 Range/Units 06:15 08:42 08:42 WBC 26.3 H (3.8-10.6) k/uL Plt Count 546 H (150-450) k/uL Neutrophils # 23.5 H (1.3-7.7) k/uL Lymphocytes # 0.7 L (1.0-4.8) k/uL Monocytes # 1.8 H (0-1.0) k/uL Sodium 133 L (137-145) mmol/L BUN 33 H (9-20) mg/dL Glucose 131 H (74-99) mg/dL POC Glucose (mg/dL) 146 H (75-99) mg/dL AST 289 H (17-59) U/L ALT 671 H (4-49) U/L Total Protein 6.0 L (6.3-8.2) g/dL Albumin 3.3 L (3.5-5.0) g/dL 02/17/21 Range/Units 12:14 WBC (3.8-10.6) k/uL Plt Count (150-450) k/uL Neutrophils # (1.3-7.7) k/uL Lymphocytes # (1.0-4.8) k/uL Monocytes # (0-1.0) k/uL Sodium (137-145) mmol/L BUN (9-20) mg/dL Glucose (74-99) mg/dL POC Glucose (mg/dL) 105 H (75-99) mg/dL AST (17-59) U/L ALT (4-49) U/L Total Protein (6.3-8.2) g/dL Albumin (3.5-5.0) g/dL Assessment and Plan Assessment: Acute hypoxic respiratory failure secondary to COVID-19 pneumonia Elevated inflammatory markers and d-dimer secondary to COVID-19 infection. Benign essential hypertension. Leukocytosis, no clear-cut evidence of bacterial infection, no calcitonin is normal Recommendation: Continue to titrate oxygen accordingly. Continue Decadron 6 mg IV push every 12 hours Continue baricitinib Continue Lovenox at 40 mg subcu every 12 hours We'll continue to follow. Time with Patient: Less than 30
[2021-02-17 16:58] LABS: Glucose,Whole Blood 130 mg/dL (75-99)
[2021-02-17 20:03] LABS: Glucose,Whole Blood 120 mg/dL (75-99)
[2021-02-18] MEDS: INSULIN ASPART (NovoLOG) 100 UNIT/ML VIAL SQ SCH ×5 (00:37→23:51)
[2021-02-18 06:06] LABS: Glucose,Whole Blood 118 mg/dL (75-99)
[2021-02-18] MEDS: PANTOPRAZOLE 40 MG TABLET PO SCH ×2 (06:21→17:15)
[2021-02-18] MEDS: ASCORBIC ACID 500 MG TAB PO SCH (08:19)
[2021-02-18] MEDS: ZINC SULFATE 220 MG CAP PO SCH (08:19)
[2021-02-18] MEDS: MULTIVITAMINS, THERA 1 EACH TAB PO SCH (08:19)
[2021-02-18] MEDS: CHOLECALCIFEROL 25 MCG (1000 IU) TABLET PO SCH (08:19)
[2021-02-18] MEDS: dexAMETHasone 2 MG TAB PO SCH ×2 (08:19→21:35)
[2021-02-18] MEDS: ENOXAPARIN 40 MG/0.4 ML SYRINGE SQ SCH ×2 (08:20→21:35)
[2021-02-18 08:56] LABS: HCT 44.6 % (39.0-53.0); MCH 31.8 pg (25.0-35.0); MCHC 33.7 g/dL (31.0-37.0); MCV 94.5 fL (80.0-100.0); Mean Platelet Volume 8.7; Platelet Count 601 k/uL (150-450); RBC 4.72 m/uL (4.30-5.90); RDW 13.5 % (11.5-15.5); WBC 31.2 k/uL (3.8-10.6)
[2021-02-18 09:15] LABS: AST 198 U/L (17-59); African American GFR (CKD) >90 (>60 ml/min/1.73 sqM); Albumin 3.7 g/dL (3.5-5.0); Alkaline Phosphatase 82 U/L (38-126); Anion Gap 9 mmol/L; Blood Urea Nitrogen 32 mg/dL (9-20); Calcium 9.2 mg/dL (8.4-10.2); Carbon Dioxide 25 mmol/L (22-30); Chloride 97 mmol/L (98-107); Glucose 92 mg/dL (74-99); Non-African American GFR(CKD) >90 (>60 ml/min/1.73 sqM); Potassium 4.7 mmol/L (3.5-5.1); Sodium 131 mmol/L (137-145); Total Bilirubin 0.8 mg/dL (0.2-1.3); Total Protein 6.6 g/dL (6.3-8.2)
[2021-02-18 09:22] LABS: ALT 875 U/L (4-49)
[2021-02-18 12:05] LABS: Glucose,Whole Blood 117 mg/dL (75-99)
--- NOTE | 2021-02-18 13:45 | P.PN ---
Subjective Progress Note Date: 02/18/21 Principal diagnosis: Coronavirus associated pneumonia. 02/12/2021, patient remains in the ICU, remains on high flow oxygen, he is on airvo at 90% and 60 L flow, patient is basically about the same as yesterday, not much of a change, he does seem to be comfortable, his O2 saturation remains marginal in the low 90s. His CT angiogram of the chest was negative for pulmonary embolism. WBC count today is 14.2 hemoglobin 14.1. D-dimer was 10.98 yesterday. Again he had a negative CT angiogram of the chest. And negative Doppler of the legs. Electrolytes are normal renal profile is normal. Patient remains on the COVID-19 cocktail, he is also on Lovenox 40 mg subcu twice a day, he is still on baricitinib and on Decadron at 6 mg by mouth twice a day. He is on GI prophylaxis. Not quite ready to be transferred out of the ICU, but if he remains about the same, may transfer the patient out to the floor in the next 24 hours. 02/13/2021, patient remains in the ICU, remains on high oxygen, no change since yesterday, patient is feeling clinically a bit better, breathing easier, but his overall status is basically the same. O2 saturation remains very marginal in the low 90s. Patient is afebrile. He is hemodynamically stable. WBC count of 17.9 hemoglobin is 13.9, basic metabolic profile is normal renal profile is normal. CT angiogram showed no evidence of thrombus embolic disease. Patient remains on Lovenox 40 mg subcu twice a day 4 elevated d-dimer. Remains on baricitinib, and on the rest of the COVID-19 cocktail including Decadron 6 mg by mouth twice a day. Reevaluated today on 02/14/2021, patient is basically the same compared to yesterday and compared to the last few days. Remains on high flow oxygen, patient is on 90%, 60 L flow, and he is also on non-rebreather mask. O2 saturations remained marginal, patient is feeling better clinically. Not much of a plant changer the last couple of days. WBC count is the same as yesterday 17.6. CBC is relatively normal. Renal profile is normal. Liver enzymes are a bit elevated. Last LDH few days ago was 1395 and C-reactive protein 1.4. The patient is seen today 02/15/2021 in follow-up in the intensive care unit. He is currently still requiring AirVo high flow oxygen at 60 L and 90% FiO2 with a nonrebreather mask. He is doing about the same compared to yesterday. No worsening shortness of breath. His appetite remains good. Chest x-ray continues to show patchy basilar infiltrates. Unchanged. We count 21.0. Hemoglobin 14.7. Platelets 656. Lymphocytes 0.63. Sodium 131. Potassium 4.8. Creatinine 0.88. AST 86. ALT 229. He is continued on Baricitinib, Decadron, Lovenox vitamin supplements. No IV fluids currently. Reevaluated today on 02/16/2021, patient remains on high flow oxygen, he is presently on airvo at 85% and 60 L flow. O2 saturation is in the low 90s. Clinically the patient is feeling a bit better, breathing a bit easier, nonetheless he continues to remain on relatively high flow oxygen. Patient is noted to have leukocytosis today with WBC of 26.8 hemoglobin is 15.1. He is afebrile. And I am a bit concerned about his white count steadily going up. Chest x-ray 2 days ago continues to show bilateral infiltrates. I will recommend checking a broken stone in level on this patient, and if elevated may start him on antibiotics and discontinue baricitinib Reevaluated today on 02/17/21, patient remains on high flow oxygen. He is actually on 90% FiO2, 40 L flow, and his O2 saturation is ranging between 90-93% at best. Clinically however the patient tells me that his feeling better, breathing easier, he has a good appetite, and he is sleeping well. Pro- calcitonin level came back 0.08, hence the possibility of underlying bacterial pneumonia is very unlikely. Chest x-ray showed relatively no change in his bilateral infiltrates. Basically about the same. WBC count remains elevated at 26.3 hemoglobin 14.2 electrolytes and renal profile are normal Progress note dated 02/18/2021. 56-year-old male, again seen in room 367. The patient has been here in the hospital for 14 days. The patient remains on AIRVO, at 60 L/m and an FiO2 of 90%, as well as a nonrebreather mask. The patient is not receiving any IV fluids. He sitting up in the chair. Actually looks pretty comfortable. He feels okay. There is no use of accessory muscles, or conversational dyspnea. White count 31.2, hemoglobin hematocrit normal. Platelet count 601,000. Sodium 131, potassium 4.7, chlorides 97, CO2 25, anion gap 9, BUN 32, creatinine 0.83. AST 198 and ALT is 875. Chest x-rays reviewed from yesterday shows stable bilateral left greater than right, airspace opacities. Objective - Vital Signs Vital signs: Vital Signs Temp 96.2 F L 02/18/21 12:00 Pulse 98 02/18/21 12:00 Resp 20 02/18/21 12:00 BP 148/83 02/18/21 12:00 Pulse Ox 91 L 02/18/21 12:15 Intake & Output 02/17/21 02/18/21 02/18/21 18:59 06:59 18:59 Intake Total 358 120 180 Output Total 650 1625 450 Balance -292 -1505 -270 Weight 80.2 kg Intake: Oral 358 120 180 Output: Urine 650 1625 450 Other: Voiding Method Urinal # Bowel Movements 2 - Exam No acute distress, oriented 3. Currently on AIRVO, and a nonrebreather mass. Surprisingly, the patient is not manifesting any signs or symptoms of re spiratory distress. HEENT examination is grossly unremarkable. Neck supple. Full range of motion. No adenopathy thyromegaly or neck vein distention. Cardiovascular examination reveals regular rhythm rate. S1-S2 normal. No S3 or S4. No discernible murmur noted. Heart rate 98 bpm. Heart sounds are distant. Lungs reveal mild to moderate bilateral expiratory rhonchi. No wheezes. Diffuse bibasilar crackles. Breath sounds equal bilaterally. Abdomen soft bowel sounds are heard. No masses or tenderness. Extremities are intact. No cyanosis clubbing or edema. Skin is without rash or lesion. Neurologic examination is brief but nonfocal. - Labs CBC & Chem 7: 02/18/21 07:29 02/18/21 07:29 Labs: Abnormal Lab Results - Last 24 Hours (Table) 02/17/21 02/17/21 02/18/21 Range/Units 16:57 20:01 06:03 WBC (3.8-10.6) k/uL Plt Count (150-450) k/uL Sodium (137-145) mmol/L Chloride (98-107) mmol/L BUN (9-20) mg/dL POC Glucose (mg/dL) 130 H 120 H 118 H (75-99) mg/dL AST (17-59) U/L ALT (4-49) U/L 02/18/21 02/18/21 02/18/21 Range/Units 07:29 07:29 12:04 WBC 31.2 H (3.8-10.6) k/uL Plt Count 601 H (150-450) k/uL Sodium 131 L (137-145) mmol/L Chloride 97 L (98-107) mmol/L BUN 32 H (9-20) mg/dL POC Glucose (mg/dL) 117 H (75-99) mg/dL AST 198 H (17-59) U/L ALT 875 H (4-49) U/L Assessment and Plan Assessment: Acute hypoxemic respiratory failure secondary to coronavirus associated pneumonia. Elevated inflammatory markers, secondary to coronavirus infection. Benign essential hypertension. Plan: Plan dated 02/18/2021. The patient will continue on oxygen therapy. Remains on Decadron and Lovenox. The patient continues on vitamin cocktail. The patient has completed his B aricitinib. We will continue to follow make recommendations where appropriate. Labs and x-rays are reviewed. Prognosis is very guarded. Though the patient's on significant supplemental oxygen, he looks relatively stable. Time with Patient: Less than 30
[2021-02-18 13:55] LABS: Band Neutrophils % 5 %; Lymphocytes # (M) 0.31 k/uL (1.0-4.8); Metamyelocytes # (M) 0.62 k/uL (0); Metamyelocytes % 2 %; Myelocytes # (M) 0.62 k/uL (0); Myelocytes % 2 %; Neutrophils % (M) 84 %; Nucleated Red Blood Cells 0 /100 WBC (0-0); Total Cells Counted 200
--- NOTE | 2021-02-18 15:27 | P.PN ---
Subjective Progress Note Date: 02/18/21 HISTORY OF PRESENT ILLNESS: This is a 56-year-old male with a past medical history significant for hypertension and hypertensive cardiovascular disease, hyperlipidemia, history of tobacco use and dependence, presented to the emergency department at [facility] with increased coughing and increased shortness breath that started last and has been getting worse over the last few days, yesterday he was extremely short of breath and his oxygen saturation was in the low 70s, his tried to get him to the ER but eventually called 911 and the patient was brought into the ER at [facility] where he had a chest x-ray that did show evidence of bilateral patchy infiltrate suggestive of Covid pneumonia, his COVID-19 PCR was positive, patient was started on nonrebreather, and later on was seen in consultation by pulmonary medicine and he was placed on Airvo and was started on Bacitinib 4 mg po daily and the patient was admitted to the hospital for further evaluation and treatment. 02/05: A shunt is currently on AirVol. He has complained of feeling tired and complaining of gastric reflux. Protonix will be increased to 40 mg IV push twice daily. Patient is been seen by pulmonary medicine and started on Baricitinib, continued on dexamethasone 6 mg twice daily, Lovenox 40 mg daily. He has been afebrile, heart rate 92, blood pressure 137/86, pulse ox 97%. Rep eat blood work reveals WBC 2.2, d-dimer 3.33, blood sugar 143. LDH 735, C- reactive protein 15.5. Chest x-ray reveals chronic emphysematous and pulmonary fibrotic changes with bilateral multifocal reticular nodular opacities consistent with COVID-19. Perhaps slight improvement in the right lung base. Ultrasound of bilateral lower extremities negative for DVT. 02/06: Last evening, patient was transferred into the intensive care unit as he was on 15 L nonrebreather was transitioned over to AirVo 60 L 90% with nonrebreather on top. Pulse ox is currently running 84-87%. He has been afebrile, heart rate in the 80s and 90s, respiratory rate 29, blood pressure 131/82. Patient is requesting Cepacol lozenges and nasal spray added. Ensure 3 times daily also added, patient has decreased appetite and limited oral intake. Repeat blood work reveals WBC 4.9, hemoglobin 13.6. Platelet count 381. D- dimer 2.15. LDH 1685. C-reactive protein 5.6. Repeat chest x-ray revealed continue his Covid infiltrate superimposed on bollous emphysema. Slight improvement in aeration in the right upper lobe. Patient is continued on dexamethasone, Lovenox, vitamin supplements and Baricitinib. 02/07:patient remains in the intensive care unit. He is on nonrebreather mask as well as high flow AirVo with O2 at 60 L, FiO2 90%. patient remains afebrile, heart rate in the 70s, respiratory rate 26, blood pressure 127/79, pulse ox 86- 88%, pulse ox drops in the low 80s when patient ate's. He is on ensure 3 times daily. Patient is complaining of some cough and back pain when he coughs. He is less fatigued today. 02/08: Patient remains in intensive care unit currently on nonrebreather, as well as a high flow airflow oxygen still borderline at 89%, patient is eating his protein, hysterectomy 8 his breakfast, he has no chest pain at this time he continues to be extreme short of breath, he has no abdominal pain, he had lost some of the states, he has no headache, he has no hemoptysis, he has no pleurisy, he has no edema. 02/09: Patient sitting up in a chair his feeling a bit better. He continues to be on nonrebreather along with airflow 60 L, he denies any chest pain, his continues to be somewhat short of breath, he continues to struggle with breathing, has no abdominal pain, he had a good bowel movement yesterday, he is tolerating his food, patient is stable at this point in time, he will stay in the intensive care unit due to his oxygen requirement, chest x-ray showed bilateral diffuse infiltrate suggestive of Covid pneumonia, he continues to be on Decadron 6 mg orally twice every day, we'll continue conservative management continue supportive care continue Baricitinib daily for a total of 14 doses today is 08/10 02/10: Patient is feeling better today he continues to be on airVO and NRB, continues to require a lot of oxygen, sitting up and eating his breakfast, he has no chest pain, no pleurisy, he does competitive achiness in the back of his legs, he is current;y on Baricitinib Day #6 out of 14. 02/11: Patient is seen today in the ICU. He is on AirVo had 90% 60 L and nonrebreather is used as needed. Patient is more mobile in his room. He has been afebrile, heart rate 81 and 96, blood pressure 127/72 area pulse ox 87-95%. Repeat blood work reveals WBC 15.5. Electrolytes normal. BUN 27 creatinine 0.84. Blood sugar 145. Liver function tests were normal. Patient is on regular diet and protein supplements. He is continued on Baricitinib, oral dexamethasone, Lovenox and supplements. 02/12: Patient remains in intensive care unit. He is on AirVo plus no nrebreather but he is keeping NRB in place except for oral intake. He has been afebrile, heart rate 89, respiratory rate 23-30, blood pressure 132/75, pulse ox 90%. CTA of the chest showed no pulmonary embolism. Small pericardial effusion. Extensive emphysematous changes and/or pulmonary fibrosis. Patient is on regular diet and protein supplements. No vomiting or diarrhea. WBC 14.2. Creatinine 0.76. Blood sugar 142. ALT 71. 02/13: Patient is currently on AirVo and nonrebreather with pulse ox 82-96%. He has been afebrile, heart rate in the 90s, respiratory rate 19-36. Blood pressur e 132/84. WBC 17.9. Sodium 134. Blood sugar 125. Patient is continued on supplements, Baricitinib, dexamethasone and Lovenox. 02/14: Patient remains in the intensive care unit on airvo and nonrebreather. He states he was up in a chair for a little while yesterday. He still has coughing, no fever or chills. He is taking protein supplement. Patient has been afebrile, heart rate 97, blood pressure 139/88, respiratory rate 24, pulse ox 92%. WBC 17.6. Sodium 131. Patient is continued on supplements, Baricitinib, dexamethasone and Lovenox. 02/15: Patient remains in the intensive care unit on AirVo and nonrebreather with pulse ox of 94%. Patient's been afebrile, heart rate 86, respiratory rate 22, blood pressure 120/75. Review blood work reveals WBC 21. AST 82, ALT 229. Sodium 131, potassium 4.8, creatinine 0.88. Patient is complaining of oral pain, grinding his teeth. Patient is continued on supplements, Baricitinib, dexamethasone and Lovenox. 02/16: Patient moved out of the ICU, his currently in the telemetry unit, his monitor showing sinus tachycardia with PACs, he continues to be on airVo and nonrebreather his oxygen is about 93%, it does drop to 88-89% with activity and exertion, he continues to be generally weak, he has no chest pain at this time, he has no pleurisy, there is no hemoptysis, he has no abdominal pain, nausea or vomiting, he seems to be tolerating her treatment very well. 02/17: Patient is about the same he continues to be in a telemetry unit, he continues to have sinus tachycardia, he continues to be on same oxygen he continues to be about the same, he is currently maintained on Decadron as well as Baricitinib for a total of 14 doses, we will continue to monitor his liver function tests, and as he continues to have transaminitis., Patient denies any chest pain at this time he has no abdominal pain, nausea vomiting or diarrhea. 02/18: Patient is seen sitting up in a chair today. He is on AirVO nonrebreather with pulse ox 92%. His been afebrile, heart rate 112, blood pressure 128/73. Patient is currently on dexamethasone, Lovenox and vitamin supplements. He has completed his course of Baricitinib. Repeat blood work reveals WBC 31.2, hemoglobin 15, platelet count 601. Sodium 131, potassium 4.7, chloride 97, CO2 25, BUN 32 creatinine 0.8. Blood sugars are running between 117 and 130s. AST is 198, ALT 875. Alkaline phosphatase 82. REVIEW OF SYSTEMS: Constitutional: Denies fever, chills, night sweats. No weight change. positive for weakness, reports fatigue no lethargy. Reports daytime sleepiness. HEENT: No headache. No nasal drainage or congestion. No epistaxis. Reports sore throat. Lungs: Continued shortness of breath with oxygen therapy, positive for cough, positive for sputum production. positive for wheezing. Reports dyspnea with minimal activity. Cardiovascular: No chest pain, no lower extremity edema. No palpitations. No paroxysmal nocturnal dyspnea. No orthopnea. No lightheadedness or dizziness. No syncopal episodes. Abdominal: denies abdominal pain. No nausea, vomiting. No diarrhea. No constipation. No bloody or tarry stools. Reports loss of appetite. Reports gastric reflux. Genitourinary: No dysuria, increased frequency, urgency. No urinary retention. Musculoskeletal: positive for myalgias. positive for generalized muscle weakness, no gait dysfunction, no frequent falls. No back pain. No neck pain. Integumentary: No wounds, no lesions. No rash or pruritus. No unusual bruising. Neurologic: No aphasia. No facial droop. No change in mentation. No head injury. No headache. No paralysis. No paresthesia. Psychiatric: No depression. No anxiety. Endocrine: No abnormal blood sugars. No weight change. PHYSICAL EXAMINATION: General: 56-year-old male sitting in recliner no acute respiratory distress HEENT: Head is atraumatic, normocephalic, pupils were equal round, sclera nonicteric, conjunctivae were pale, mucous membranes of the mouth are slightly dry. Neck: Supple, no JVP, normal carotid upstroke bilaterally, no lymphadenopathy. Chest: Decreased breath sounds at the bases, few rhonchi, moderate expiratory wheezes, no chest wall tenderness, no intercostal retractions at rest. Heart: First heart sound is normal, second heart sounds normal, there is no gallop or murmur. Abdomen: Soft, nontender, nondistended, positive bowel sounds, no he patosplenomegaly. Extremities: There is no edema no calf tenderness DP +2 bilaterally. Neurologic examination: Patient is awake alert and oriented X 3, cranial nerves II-12 appear grossly intact. ASSESSMENT AND PLAN: 1. Acute hypoxemic respiratory failure due to bilateral patchy interstitial pneumonia due to COVID-19 pneumonia. Continue patient on Decadron 6 mg orally twice every day, Vitamin C 1000 mg orally once every day, zinc 220 mg once every day, vitamin D 1000 units once every day, completed course of Baricitinib, continue oxygen therapy on 100% nonrebreather and AirVo. 2. Bilateral Covid pneumonia with ARDS. Continue with Airvo and nonrebreather, continue dexamethasone 6 mg orally twice every day, continue with supportive care. 3. Mild non-anion gap metabolic acidosis. Resolved. 4. Moderate protein calorie malnutrition secondary to decreased appetite and difficulty eating with oxygen mask. Continue Ensure 3 times daily. 5. Acute drug-induced hepatitis. Monitor the patient CMP in the next 24 hours. 6. DVT prophylaxis. Continue Lovenox 40 mg subcutaneously every 24 hours 7. GERD and GI prophylaxis. Continue patient on Protonix 40 mg IV push every 12 hours as well as Carafate 1 g orally twice every day . 8. Patient is full code. 9. Guarded prognosis. Impression and plan of care have been directed as dictated by the signing physician. Viridiana Baker nurse practitioner acting as scribe for signing physician. Objective - Vital Signs Vital signs: Vital Signs Temp 96.5 F L 02/18/21 08:00 Pulse 112 H 02/18/21 08:00 Resp 20 02/18/21 08:00 BP 128/73 02/18/21 08:00 Pulse Ox 92 L 02/18/21 08:00 Intake & Output 02/17/21 02/18/21 02/18/21 18:59 06:59 18:59 Intake Total 358 120 Output Total 650 1625 Balance -292 -1505 Weight 80.2 kg Intake: Oral 358 120 Output: Urine 650 1625 Other: Voiding Method Urinal # Bowel Movements 2 - Labs CBC & Chem 7: 02/18/21 07:29 02/18/21 07:29 Labs: Abnormal Lab Results - Last 24 Hours (Table) 02/17/21 02/17/21 02/17/21 Range/Units 08:42 08:42 12:14 WBC 26.3 H (3.8-10.6) k/uL Plt Count 546 H (150-450) k/uL Neutrophils # 23.5 H (1.3-7.7) k/uL Lymphocytes # 0.7 L (1.0-4.8) k/uL Monocytes # 1.8 H (0-1.0) k/uL Sodium 133 L (137-145) mmol/L BUN 33 H (9-20) mg/dL Glucose 131 H (74-99) mg/dL POC Glucose (mg/dL) 105 H (75-99) mg/dL AST 289 H (17-59) U/L ALT 671 H (4-49) U/L Total Protein 6.0 L (6.3-8.2) g/dL Albumin 3.3 L (3.5-5.0) g/dL 11/02/17/21 02/18/21 Range/Units 16:57 20:01 06:03 WBC (3.8-10.6) k/uL Plt Count (150-450) k/uL Neutrophils # (1.3-7.7) k/uL Lymphocytes # (1.0-4.8) k/uL Monocytes # (0-1.0) k/uL Sodium (137-145) mmol/L BUN (9-20) mg/dL Glucose (74-99) mg/dL POC Glucose (mg/dL) 130 H 120 H 118 H (75-99) mg/dL AST (17-59) U/L ALT (4-49) U/L Total Protein (6.3-8.2) g/dL Albumin (3.5-5.0) g/dL
[2021-02-18 16:58] LABS: Glucose,Whole Blood 124 mg/dL (75-99)
[2021-02-18 20:24] LABS: Glucose,Whole Blood 105 mg/dL (75-99)
[2021-02-19 05:58] LABS: Glucose,Whole Blood 128 mg/dL (75-99)
[2021-02-19] MEDS: INSULIN ASPART (NovoLOG) 100 UNIT/ML VIAL SQ SCH ×4 (06:09→22:55)
[2021-02-19] MEDS: PANTOPRAZOLE 40 MG TABLET PO SCH ×2 (06:30→19:16)
--- NOTE | 2021-02-19 08:09 | P.PN ---
Subjective Progress Note Date: 02/19/21 HISTORY OF PRESENT ILLNESS: This is a 56-year-old male with a past medical history significant for hypertension and hypertensive cardiovascular disease, hyperlipidemia, history of tobacco use and dependence, presented to the emergency department at [facility] with increased coughing and increased shortness breath that started last and has been getting worse over the last few days, yesterday he was extremely short of breath and his oxygen saturation was in the low 70s, his tried to get him to the ER but eventually called 911 and the patient was brought into the ER at [facility] where he had a chest x-ray that did show evidence of bilateral patchy infiltrate suggestive of Covid pneumonia, his COVID-19 PCR was positive, patient was started on nonrebreather, and later on was seen in consultation by pulmonary medicine and he was placed on Airvo and was started on Bacitinib 4 mg po daily and the patient was admitted to the hospital for further evaluation and treatment. 02/05: A shunt is currently on AirVol. He has complained of feeling tired and complaining of gastric reflux. Protonix will be increased to 40 mg IV push twice daily. Patient is been seen by pulmonary medicine and started on Baricitinib, continued on dexamethasone 6 mg twice daily, Lovenox 40 mg daily. He has been afebrile, heart rate 92, blood pressure 137/86, pulse ox 97%. Rep eat blood work reveals WBC 2.2, d-dimer 3.33, blood sugar 143. LDH 735, C- reactive protein 15.5. Chest x-ray reveals chronic emphysematous and pulmonary fibrotic changes with bilateral multifocal reticular nodular opacities consistent with COVID-19. Perhaps slight improvement in the right lung base. Ultrasound of bilateral lower extremities negative for DVT. 02/06: Last evening, patient was transferred into the intensive care unit as he was on 15 L nonrebreather was transitioned over to AirVo 60 L 90% with nonrebreather on top. Pulse ox is currently running 84-87%. He has been afebrile, heart rate in the 80s and 90s, respiratory rate 29, blood pressure 131/82. Patient is requesting Cepacol lozenges and nasal spray added. Ensure 3 times daily also added, patient has decreased appetite and limited oral intake. Repeat blood work reveals WBC 4.9, hemoglobin 13.6. Platelet count 381. D- dimer 2.15. LDH 1685. C-reactive protein 5.6. Repeat chest x-ray revealed continue his Covid infiltrate superimposed on bollous emphysema. Slight improvement in aeration in the right upper lobe. Patient is continued on dexamethasone, Lovenox, vitamin supplements and Baricitinib. 02/07:patient remains in the intensive care unit. He is on nonrebreather mask as well as high flow AirVo with O2 at 60 L, FiO2 90%. patient remains afebrile, heart rate in the 70s, respiratory rate 26, blood pressure 127/79, pulse ox 86- 88%, pulse ox drops in the low 80s when patient ate's. He is on ensure 3 times daily. Patient is complaining of some cough and back pain when he coughs. He is less fatigued today. 02/08: Patient remains in intensive care unit currently on nonrebreather, as well as a high flow airflow oxygen still borderline at 89%, patient is eating his protein, hysterectomy 8 his breakfast, he has no chest pain at this time he continues to be extreme short of breath, he has no abdominal pain, he had lost some of the states, he has no headache, he has no hemoptysis, he has no pleurisy, he has no edema. 02/09: Patient sitting up in a chair his feeling a bit better. He continues to be on nonrebreather along with airflow 60 L, he denies any chest pain, his continues to be somewhat short of breath, he continues to struggle with breathing, has no abdominal pain, he had a good bowel movement yesterday, he is tolerating his food, patient is stable at this point in time, he will stay in the intensive care unit due to his oxygen requirement, chest x-ray showed bilateral diffuse infiltrate suggestive of Covid pneumonia, he continues to be on Decadron 6 mg orally twice every day, we'll continue conservative management continue supportive care continue Baricitinib daily for a total of 14 doses today is 08/10 02/10: Patient is feeling better today he continues to be on airVO and NRB, continues to require a lot of oxygen, sitting up and eating his breakfast, he has no chest pain, no pleurisy, he does competitive achiness in the back of his legs, he is current;y on Baricitinib Day #6 out of 14. 02/11: Patient is seen today in the ICU. He is on AirVo had 90% 60 L and nonrebreather is used as needed. Patient is more mobile in his room. He has been afebrile, heart rate 81 and 96, blood pressure 127/72 area pulse ox 87-95%. Repeat blood work reveals WBC 15.5. Electrolytes normal. BUN 27 creatinine 0.84. Blood sugar 145. Liver function tests were normal. Patient is on regular diet and protein supplements. He is continued on Baricitinib, oral dexamethasone, Lovenox and supplements. 02/12: Patient remains in intensive care unit. He is on AirVo plus no nrebreather but he is keeping NRB in place except for oral intake. He has been afebrile, heart rate 89, respiratory rate 23-30, blood pressure 132/75, pulse ox 90%. CTA of the chest showed no pulmonary embolism. Small pericardial effusion. Extensive emphysematous changes and/or pulmonary fibrosis. Patient is on regular diet and protein supplements. No vomiting or diarrhea. WBC 14.2. Creatinine 0.76. Blood sugar 142. ALT 71. 02/13: Patient is currently on AirVo and nonrebreather with pulse ox 82-96%. He has been afebrile, heart rate in the 90s, respiratory rate 19-36. Blood pressur e 132/84. WBC 17.9. Sodium 134. Blood sugar 125. Patient is continued on supplements, Baricitinib, dexamethasone and Lovenox. 02/14: Patient remains in the intensive care unit on airvo and nonrebreather. He states he was up in a chair for a little while yesterday. He still has coughing, no fever or chills. He is taking protein supplement. Patient has been afebrile, heart rate 97, blood pressure 139/88, respiratory rate 24, pulse ox 92%. WBC 17.6. Sodium 131. Patient is continued on supplements, Baricitinib, dexamethasone and Lovenox. 02/15: Patient remains in the intensive care unit on AirVo and nonrebreather with pulse ox of 94%. Patient's been afebrile, heart rate 86, respiratory rate 22, blood pressure 120/75. Review blood work reveals WBC 21. AST 82, ALT 229. Sodium 131, potassium 4.8, creatinine 0.88. Patient is complaining of oral pain, grinding his teeth. Patient is continued on supplements, Baricitinib, dexamethasone and Lovenox. 02/16: Patient moved out of the ICU, his currently in the telemetry unit, his monitor showing sinus tachycardia with PACs, he continues to be on airVo and nonrebreather his oxygen is about 93%, it does drop to 88-89% with activity and exertion, he continues to be generally weak, he has no chest pain at this time, he has no pleurisy, there is no hemoptysis, he has no abdominal pain, nausea or vomiting, he seems to be tolerating her treatment very well. 02/17: Patient is about the same he continues to be in a telemetry unit, he continues to have sinus tachycardia, he continues to be on same oxygen he continues to be about the same, he is currently maintained on Decadron as well as Baricitinib for a total of 14 doses, we will continue to monitor his liver function tests, and as he continues to have transaminitis., Patient denies any chest pain at this time he has no abdominal pain, nausea vomiting or diarrhea. 02/18: Patient is seen sitting up in a chair today. He is on AirVO nonrebreather with pulse ox 92%. His been afebrile, heart rate 112, blood pressure 128/73. Patient is currently on dexamethasone, Lovenox and vitamin supplements. He has completed his course of Baricitinib. Repeat blood work reveals WBC 31.2, hemoglobin 15, platelet count 601. Sodium 131, potassium 4.7, chloride 97, CO2 25, BUN 32 creatinine 0.8. Blood sugars are running between 117 and 130s. AST is 198, ALT 875. Alkaline phosphatase 82. 02/19: Patient is currently on AirVo only with pulse ox of 8792%. He has been afebrile, heart rate 107, blood pressure 114/77. Have any nausea vomiting, no diarrhea. He states he is feeling better from yesterday. No repeat chest x-ray is scheduled for today. Repeat blood work will be ordered for tomorrow. REVIEW OF SYSTEMS: Constitutional: Denies fever, chills, night sweats. No weight change. positive for weakness, reports fatigue no lethargy. Reports daytime sleepiness. HEENT: No headache. No nasal drainage or congestion. No epistaxis. Reports sore throat. Lungs: Continued shortness of breath with oxygen therapy, positive for cough, positive for sputum production. positive for wheezing. Reports dyspnea with minimal activity. Cardiovascular: No chest pain, no lower extremity edema. No palpitations. No paroxysmal nocturnal dyspnea. No orthopnea. No lightheadedness or dizziness. No syncopal episodes. Abdominal: denies abdominal pain. No nausea, vomiting. Denies diarrhea. No constipation. No bloody or tarry stools. Reports loss of appetite. Reports gastric reflux. Genitourinary: No dysuria, increased frequency, urgency. No urinary retention. Musculoskeletal: positive for myalgias. positive for generalized muscle weakness, no gait dysfunction, no frequent falls. No back pain. No neck pain. Integumentary: No wounds, no lesions. No rash or pruritus. No unusual bruising. Neurologic: No aphasia. No facial droop. No change in mentation. No head injury. No headache. No paralysis. No paresthesia. Psychiatric: No depression. No anxiety. Endocrine: No abnormal blood sugars. No weight change. PHYSICAL EXAMINATION: General: 56-year-old male sitting in recliner no acute respiratory distress. Patient appears to be more comfortable from yesterday. HEENT: Head is atraumatic, normocephalic, pupils were equal round, sclera nonicteric, conjunctivae were pale, mucous membranes of the mouth are slightly dry. Neck: Supple, no JVP, normal carotid upstroke bilaterally, no lymphadenopathy. Chest: Decreased breath sounds at the bases, few rhonchi, moderate expiratory wheezes, no chest wall tenderness, no intercostal retractions at rest. Heart: First heart sound is normal, second heart sounds normal, there is no gallop or murmur. Abdomen: Soft, nontender, nondistended, positive bowel sounds, no hepatosplenomegaly. Extremities: There is no edema no calf tenderness DP +2 bilaterally. Neurologic examination: Patient is awake alert and oriented X 3, cranial nerves II-12 appear grossly intact. ASSESSMENT AND PLAN: 1. Acute hypoxemic respiratory failure due to bilateral patchy interstitial pneumonia due to COVID-19 pneumonia. Continue patient on Decadron 6 mg orally twice every day, Vitamin C 1000 mg orally once every day, zinc 220 mg once every day, vitamin D 1000 units once every day, completed course of Baricitinib, continue oxygen therapy on AirVo. 2. Bilateral Covid pneumonia with ARDS. Continue with Airvo and nonrebreather, continue dexamethasone 6 mg orally twice every day, continue with supportive care. 3. Mild non-anion gap metabolic acidosis. Resolved. 4. Moderate protein calorie malnutrition secondary to decreased appetite and difficulty eating with oxygen mask. Continue Ensure 3 times daily. 5. Acute drug-induced hepatitis. Monitor the patient CMP in the next 24 hours. 6. DVT prophylaxis. Continue Lovenox 40 mg subcutaneously every 24 hours 7. GERD and GI prophylaxis. Continue patient on Protonix 40 mg IV push every 12 hours as well as Carafate 1 g orally twice every day . 8. Patient is full code. 9. Guarded prognosis. Impression and plan of care have been directed as dictated by the signing physician. Viridiana Baker nurse practitioner acting as scribe for signing physician. Objective - Vital Signs Vital signs: Vital Signs Temp 97.5 F L 02/19/21 04:00 Pulse 107 H 02/19/21 04:00 Resp 22 02/19/21 04:00 BP 114/77 02/19/21 04:00 Pulse Ox 92 L 02/19/21 04:18 Intake & Output 02/18/21 02/19/21 02/19/21 18:59 06:59 18:59 Intake Total 1860 480 Output Total 1924 1999 Balance -65 -1520 Weight 80 kg Intake: Oral 1860 480 Output: Urine 1924 1999 Other: Voiding Method Urinal # Bowel Movements 1 - Labs CBC & Chem 7: 02/18/21 07:29 02/18/21 07:29 Labs: Abnormal Lab Results - Last 24 Hours (Table) 02/18/21 02/18/21 02/18/21 Range/Units 07:29 07:29 12:04 WBC 31.2 H (3.8-10.6) k/uL Plt Count 601 H (150-450) k/uL Neutrophils # (Manual) 27.70 H (1.3-7.7) k/uL Lymphocytes # (Manual) 0.31 L (1.0-4.8) k/uL Monocytes # (Manual) 2.50 H (0-1.0) k/uL Metamyelocytes # (Man) 0.62 H (0) k/uL Myelocytes # (Manual) 0.62 H (0) k/uL Sodium 131 L (137-145) mmol/L Chloride 97 L (98-107) mmol/L BUN 32 H (9-20) mg/dL POC Glucose (mg/dL) 117 H (75-99) mg/dL AST 198 H (17-59) U/L ALT 875 H (4-49) U/L 02/18/21 02/18/21 02/19/21 Range/Units 16:56 20:22 05:57 WBC (3.8-10.6) k/uL Plt Count (150-450) k/uL Neutrophils # (Manual) (1.3-7.7) k/uL Lymphocytes # (Manual) (1.0-4.8) k/uL Monocytes # (Manual) (0-1.0) k/uL Metamyelocytes # (Man) (0) k/uL Myelocytes # (Manual) (0) k/uL Sodium (137-145) mmol/L Chloride (98-107) mmol/L BUN (9-20) mg/dL POC Glucose (mg/dL) 124 H 105 H 128 H (75-99) mg/dL AST (17-59) U/L ALT (4-49) U/L
[2021-02-19] MEDS: CHOLECALCIFEROL 25 MCG (1000 IU) TABLET PO SCH (10:07)
[2021-02-19] MEDS: ASCORBIC ACID 500 MG TAB PO SCH (10:07)
[2021-02-19] MEDS: ENOXAPARIN 40 MG/0.4 ML SYRINGE SQ SCH ×2 (10:07→21:54)
[2021-02-19] MEDS: dexAMETHasone 2 MG TAB PO SCH ×2 (10:07→21:54)
[2021-02-19] MEDS: MULTIVITAMINS, THERA 1 EACH TAB PO SCH (10:07)
[2021-02-19] MEDS: ZINC SULFATE 220 MG CAP PO SCH (10:08)
[2021-02-19 12:24] LABS: Glucose,Whole Blood 116 mg/dL (75-99)
--- NOTE | 2021-02-19 14:46 | P.PN ---
Subjective Progress Note Date: 02/19/21 Principal diagnosis: Coronavirus associated pneumonia. 02/12/2021, patient remains in the ICU, remains on high flow oxygen, he is on airvo at 90% and 60 L flow, patient is basically about the same as yesterday, not much of a change, he does seem to be comfortable, his O2 saturation remains marginal in the low 90s. His CT angiogram of the chest was negative for pulmonary embolism. WBC count today is 14.2 hemoglobin 14.1. D-dimer was 10.98 yesterday. Again he had a negative CT angiogram of the chest. And negative Doppler of the legs. Electrolytes are normal renal profile is normal. Patient remains on the COVID-19 cocktail, he is also on Lovenox 40 mg subcu twice a day, he is still on baricitinib and on Decadron at 6 mg by mouth twice a day. He is on GI prophylaxis. Not quite ready to be transferred out of the ICU, but if he remains about the same, may transfer the patient out to the floor in the next 24 hours. 02/13/2021, patient remains in the ICU, remains on high oxygen, no change since yesterday, patient is feeling clinically a bit better, breathing easier, but his overall status is basically the same. O2 saturation remains very marginal in the low 90s. Patient is afebrile. He is hemodynamically stable. WBC count of 17.9 hemoglobin is 13.9, basic metabolic profile is normal renal profile is normal. CT angiogram showed no evidence of thrombus embolic disease. Patient remains on Lovenox 40 mg subcu twice a day 4 elevated d-dimer. Remains on baricitinib, and on the rest of the COVID-19 cocktail including Decadron 6 mg by mouth twice a day. Reevaluated today on 02/14/2021, patient is basically the same compared to yesterday and compared to the last few days. Remains on high flow oxygen, patient is on 90%, 60 L flow, and he is also on non-rebreather mask. O2 saturations remained marginal, patient is feeling better clinically. 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 WBC count is the same as yesterday 17.6. CBC is relatively normal. Renal profile is normal. Liver enzymes are a bit elevated. Last LDH few days ago was 1395 and C-reactive protein 1.4. The patient is seen today 02/15/2021 in follow-up in the intensive care unit. He is currently still requiring AirVo high flow oxygen at 60 L and 90% FiO2 with a nonrebreather mask. He is doing about the same compared to yesterday. No worsening shortness of breath. His appetite remains good. Chest x-ray continues to show patchy basilar infiltrates. Unchanged. We count 21.0. Hemoglobin 14.7. Platelets 656. Lymphocytes 0.63. Sodium 131. Potassium 4.8. Creatinine 0.88. AST 86. ALT 229. He is continued on Baricitinib, Decadron, Lovenox vitamin supplements. No IV fluids currently. Reevaluated today on 02/16/2021, patient remains on high flow oxygen, he is presently on airvo at 85% and 60 L flow. O2 saturation is in the low 90s. Clinically the patient is feeling a bit better, breathing a bit easier, nonetheless he continues to remain on relatively high flow oxygen. Patient is noted to have leukocytosis today with WBC of 26.8 hemoglobin is 15.1. He is afebrile. And I am a bit concerned about his white count steadily going up. Chest x-ray 2 days ago continues to show bilateral infiltrates. I will recommend checking a broken stone in level on this patient, and if elevated may start him on antibiotics and discontinue baricitinib Reevaluated today on 02/17/21, patient remains on high flow oxygen. He is actually on 90% FiO2, 40 L flow, and his O2 saturation is ranging between 90-93% at best. Clinically however the patient tells me that his feeling better, breathing easier, he has a good appetite, and he is sleeping well. Pro- calcitonin level came back 0.08, hence the possibility of underlying bacterial pneumonia is very unlikely. Chest x-ray showed relatively no change in his bilateral infiltrates. Basically about the same. WBC count remains elevated at 26.3 hemoglobin 14.2 electrolytes and renal profile are normal Progress note dated 02/18/2021. 56-year-old male, again seen in room 367. The patient has been here in the hospital for 14 days. The patient remains on AIRVO, at 60 L/m and an FiO2 of 90%, as well as a nonrebreather mask. The patient is not receiving any IV fluids. He sitting up in the chair. Actually looks pretty comfortable. He feels okay. There is no use of accessory muscles, or conversational dyspnea. White count 31.2, hemoglobin hematocrit normal. Platelet count 601,000. Sodium 131, potassium 4.7, chlorides 97, CO2 25, anion gap 9, BUN 32, creatinine 0.83. AST 198 and ALT is 875. Chest x-rays reviewed from yesterday shows stable bilateral left greater than right, airspace opacities. Progress note dated 02/19/2021. 56-year-old male, again seen in room 367. Currently, the patient remains on this AIRVO at 60 L/m with an FiO2 of 90%. His saturations are 91%. He sitting at the bedside. He feels may be slightly better than he did yesterday. He is not receiving any IV fluids. No new labs today. Labs from yesterday were ready reviewed. No new chest x-ray to report. The patient remains on vitamin C, vitamin D3, Decadron, Lovenox, and zinc. Objective - Vital Signs Vital signs: Vital Signs Temp 97.5 F L 02/19/21 04:00 Pulse 110 H 02/19/21 08:00 Resp 24 02/19/21 08:00 BP 125/76 02/19/21 08:00 Pulse Ox 91 L 02/19/21 11:45 Intake & Output 02/18/21 02/19/21 02/19/21 18:59 06:59 18:59 Intake Total 1860 480 240 Output Total 1924 1999 Balance -65 -1520 240 Weight 80 kg Intake: Oral 1860 480 240 Output: Urine 1924 1999 Other: Voiding Method Urinal # Bowel Movements 1 - Exam No acute distress, oriented 3. Currently on AIRVO, and a nonrebreather mass. Surprisingly, the patient is not manifesting any signs or symptoms of respiratory distress. HEENT examination is grossly unremarkable. Neck supple. Full range of motion. No adenopathy thyromegaly or neck vein distention. Cardiovascular examination reveals regular rhythm rate. S1-S2 normal. No S3 or S4. No discernible murmur noted. Heart rate 110 bpm. Heart sounds are distant. Lungs reveal mild to moderate bilateral expiratory rhonchi. No wheezes. Diffuse bibasilar crackles. Breath sounds equal bilaterally. Saturations are 91%. Abdomen soft bowel sounds are heard. No masses or tenderness. Extremities are intact. No cyanosis clubbing or edema. Skin is without rash or lesion. Neurologic examination is brief but nonfocal. - Labs CBC & Chem 7: 02/18/21 07:29 02/18/21 07:29 Labs: Abnormal Lab Results - Last 24 Hours (Table) 02/18/21 02/18/21 02/19/21 Range/Units 16:56 20: 05:57 POC Glucose (mg/dL) 124 H 105 H 128 H (75-99) mg/dL 02/19/21 Range/Units 12:23 POC Glucose (mg/dL) 116 H (75-99) mg/dL Assessment and Plan Assessment: Acute hypoxemic respiratory failure secondary to coronavirus associated pneum onia. Elevated inflammatory markers, secondary to coronavirus infection. Benign essential hypertension. Plan: Plan dated 02/18/2021. The patient will continue on oxygen therapy. Remains on Decadron and Lovenox. The patient continues on vitamin cocktail. The patient has completed his Baricitinib. We will continue to follow make recommendations where appropriate. Labs and x-rays are reviewed. Prognosis is very guarded. Though the patient's on significant supplemental oxygen, he looks relatively stable. Plan dated 02/19/2021. The patient continues on Decadron and Lovenox. He remains on AIRVO. The patient also remains on vitamin C, vitamin D3, and zinc. The patient has completed RAUL. We will continue to follow make recommendations where appropriate. A chest x-ray will be ordered for tomorrow. No additional recommendations are made. Prognosis is very guarded. Time with Patient: Less than 30
[2021-02-19 17:12] LABS: Glucose,Whole Blood 160 mg/dL (75-99)
[2021-02-19 20:51] LABS: Glucose,Whole Blood 107 mg/dL (75-99)
[2021-02-20 06:24] LABS: Glucose,Whole Blood 110 mg/dL (75-99)
[2021-02-20 06:51] LABS: ALT 643 U/L (4-49); AST 110 U/L (17-59); African American GFR (CKD) >90 (>60 ml/min/1.73 sqM); Albumin 3.4 g/dL (3.5-5.0); Alkaline Phosphatase 83 U/L (38-126); Anion Gap 7 mmol/L; Blood Urea Nitrogen 33 mg/dL (9-20); Carbon Dioxide 23 mmol/L (22-30); Chloride 99 mmol/L (98-107); Glucose 98 mg/dL (74-99); LDH 1114 U/L (313-618); Non-African American GFR(CKD) >90 (>60 ml/min/1.73 sqM); Potassium 5.3 mmol/L (3.5-5.1); Sodium 129 mmol/L (137-145); Total Bilirubin 0.7 mg/dL (0.2-1.3); Total Protein 6.2 g/dL (6.3-8.2)
--- NOTE | 2021-02-20 08:03 | XR ---
EXAMINATION TYPE: XR chest 1V portable DATE OF EXAM: 02/20/2021 Comparison: 02/17/2021 Clinical History: 56-year-old male COVID pneumonia Findings: Heart normal size. COPD. Interstitial changes especially in the periphery of the lungs and more patch y airspace opacity in the left greater than right lower lungs. Overall findings are relatively unchan ged. No pleural effusion or appreciable pneumothorax. Impression: Unchanged COPD and patchy lower lung predominant COVID pneumonia.
[2021-02-20 08:23] LABS: HCT 43.7 % (39.0-53.0); HGB 14.8 gm/dL (13.0-17.5); MCH 32.1 pg (25.0-35.0); MCHC 33.8 g/dL (31.0-37.0); Mean Platelet Volume 8.8; Platelet Count 405 k/uL (150-450); RDW 14.4 % (11.5-15.5); WBC 23.3 k/uL (3.8-10.6)
[2021-02-20] MEDS: dexAMETHasone 2 MG TAB PO SCH ×2 (09:44→21:19)
[2021-02-20] MEDS: CHOLECALCIFEROL 25 MCG (1000 IU) TABLET PO SCH (09:44)
[2021-02-20] MEDS: PANTOPRAZOLE 40 MG TABLET PO SCH ×2 (09:44→17:05)
[2021-02-20] MEDS: ASCORBIC ACID 500 MG TAB PO SCH (09:44)
[2021-02-20] MEDS: ENOXAPARIN 40 MG/0.4 ML SYRINGE SQ SCH ×2 (09:44→21:20)
[2021-02-20] MEDS: ZINC SULFATE 220 MG CAP PO SCH (09:45)
[2021-02-20 13:40] LABS: Band Neutrophils % 8 %; Lymphocytes # (M) 0.23 k/uL (1.0-4.8); Metamyelocytes # (M) 0.47 k/uL (0); Metamyelocytes % 2 %; Monocytes # (M) 1.17 k/uL (0-1.0); Neutrophils % (M) 84 %; Nucleated Red Blood Cells 0 /100 WBC (0-0); Total Cells Counted 100
--- NOTE | 2021-02-20 16:26 | P.PN ---
Subjective Progress Note Date: 02/20/21 Principal diagnosis: Coronavirus associated pneumonia. 02/12/2021, patient remains in the ICU, remains on high flow oxygen, he is on airvo at 90% and 60 L flow, patient is basically about the same as yesterday, not much of a change, he does seem to be comfortable, his O2 saturation remains marginal in the low 90s. His CT angiogram of the chest was negative for pulmonary embolism. WBC count today is 14.2 hemoglobin 14.1. D-dimer was 10.98 yesterday. Again he had a negative CT angiogram of the chest. And negative Doppler of the legs. Electrolytes are normal renal profile is normal. Patient remains on the COVID-19 cocktail, he is also on Lovenox 40 mg subcu twice a day, he is still on baricitinib and on Decadron at 6 mg by mouth twice a day. He is on GI prophylaxis. Not quite ready to be transferred out of the ICU, but if he remains about the same, may transfer the patient out to the floor in the next 24 hours. 02/13/2021, patient remains in the ICU, remains on high oxygen, no change since yesterday, patient is feeling clinically a bit better, breathing easier, but his overall status is basically the same. O2 saturation remains very marginal in the low 90s. Patient is afebrile. He is hemodynamically stable. WBC count of 17.9 hemoglobin is 13.9, basic metabolic profile is normal renal profile is normal. CT angiogram showed no evidence of thrombus embolic disease. Patient remains on Lovenox 40 mg subcu twice a day 4 elevated d-dimer. Remains on baricitinib, and on the rest of the COVID-19 cocktail including Decadron 6 mg by mouth twice a day. Reevaluated today on 02/14/2021, patient is basically the same compared to yesterday and compared to the last few days. Remains on high flow oxygen, patient is on 90%, 60 L flow, and he is also on non-rebreather mask. O2 saturations remained marginal, patient is feeling better clinically. 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 WBC count is the same as yesterday 17.6. CBC is relatively normal. Renal profile is normal. Liver enzymes are a bit elevated. Last LDH few days ago was 1395 and C-reactive protein 1.4. The patient is seen today 02/15/2021 in follow-up in the intensive care unit. He is currently still requiring AirVo high flow oxygen at 60 L and 90% FiO2 with a nonrebreather mask. He is doing about the same compared to yesterday. No worsening shortness of breath. His appetite remains good. Chest x-ray continues to show patchy basilar infiltrates. Unchanged. We count 21.0. Hemoglobin 14.7. Platelets 656. Lymphocytes 0.63. Sodium 131. Potassium 4.8. Creatinine 0.88. AST 86. ALT 229. He is continued on Baricitinib, Decadron, Lovenox vitamin supplements. No IV fluids currently. Reevaluated today on 02/16/2021, patient remains on high flow oxygen, he is presently on airvo at 85% and 60 L flow. O2 saturation is in the low 90s. Clinically the patient is feeling a bit better, breathing a bit easier, nonetheless he continues to remain on relatively high flow oxygen. Patient is noted to have leukocytosis today with WBC of 26.8 hemoglobin is 15.1. He is afebrile. And I am a bit concerned about his white count steadily going up. Chest x-ray 2 days ago continues to show bilateral infiltrates. I will recommend checking a broken stone in level on this patient, and if elevated may start him on antibiotics and discontinue baricitinib Reevaluated today on 02/17/21, patient remains on high flow oxygen. He is actually on 90% FiO2, 40 L flow, and his O2 saturation is ranging between 90-93% at best. Clinically however the patient tells me that his feeling better, breathing easier, he has a good appetite, and he is sleeping well. Pro- calcitonin level came back 0.08, hence the possibility of underlying bacterial pneumonia is very unlikely. Chest x-ray showed relatively no change in his bilateral infiltrates. Basically about the same. WBC count remains elevated at 26.3 hemoglobin 14.2 electrolytes and renal profile are normal Progress note dated 02/18/2021. 56-year-old male, again seen in room 367. The patient has been here in the hospital for 14 days. The patient remains on AIRVO, at 60 L/m and an FiO2 of 90%, as well as a nonrebreather mask. The patient is not receiving any IV fluids. He sitting up in the chair. Actually looks pretty comfortable. He feels okay. There is no use of accessory muscles, or conversational dyspnea. White count 31.2, hemoglobin hematocrit normal. Platelet count 601,000. Sodium 131, potassium 4.7, chlorides 97, CO2 25, anion gap 9, BUN 32, creatinine 0.83. AST 198 and ALT is 875. Chest x-rays reviewed from yesterday shows stable bilateral left greater than right, airspace opacities. Progress note dated 02/19/2021. 56-year-old male, again seen in room 367. Currently, the patient remains on this AIRVO at 60 L/m with an FiO2 of 90%. His saturations are 91%. He sitting at the bedside. He feels may be slightly better than he did yesterday. He is not receiving any IV fluids. No new labs today. Labs from yesterday were ready reviewed. No new chest x-ray to report. The patient remains on vitamin C, vitamin D3, Decadron, Lovenox, and zinc. Progress note dated 02/20/2021. 56-year-old male, again seen in room 367. The patient remains on AIRVO, at 60 L/m, and with an FiO2 of about 73%. Yesterday, he had an FiO2 of 90%. Clinically, he feels reasonable. He is very short of breath on any exertion. The patient is not receiving any IV fluids. He is laying in bed. For the last couple of days, he was sitting up in a chair. White count 23.3, hemoglobin 14.8, hematocrit 43.7, platelet count 405,000. D-dimer 0.75. Sodium 129, potassium 5.3, chlorides 99, CO2 23, anion gap 7, BUN 33, creatinine 0.84. Pro- calcitonin level was 0.19. ALT 643. AST is 110. LDH is 1114. A chest x-ray today, is unchanged, and shows changes of COPD, as well as patchy bilateral mostly lower lobe infiltrates. Objective - Vital Signs Vital signs: Vital Signs Temp 97.8 F 02/20/21 04:00 Pulse 116 H 02/20/21 08:00 Resp 22 02/20/21 04:00 BP 124/70 02/20/21 08:00 Pulse Ox 91 L 02/20/21 04:09 Intake & Output 02/19/21 02/20/21 02/20/21 18:59 06:59 18:59 Intake Total 480 480 Output Total 1650 Balance 480 -1650 480 Weight 82.7 kg Intake: Oral 480 480 Output: Urine 1650 Other: Voiding Method Urinal # Voids 1 # Bowel Movements 1 - Exam No acute distress, oriented 3. Currently on AIRVO only. Saturations are 91%. HEENT examination is grossly unremarkable. Neck supple. Full range of motion. No adenopathy thyromegaly or neck vein distention. Cardiovascular examination reveals regular rhythm rate. S1-S2 normal. No S3 or S4. No discernible murmur noted. Heart rate 116 bpm. Heart sounds are distant. Lungs reveal mild to moderate bilateral expiratory rhonchi. No wheezes. Diffuse bibasilar crackles. Breath sounds equal bilaterally. Saturations are 91%. Abdomen soft bowel sounds are heard. No masses or tenderness. Extremities are intact. No cyanosis clubbing or edema. Skin is without rash or lesion. Neurologic examination is brief but nonfocal. - Labs CBC & Chem 7: 02/20/21 06:11 02/20/21 06:11 Labs: Abnormal Lab Results - Last 24 Hours (Table) 02/19/21 02/19/21 02/20/21 Range/Units 17:10 20:50 06:11 WBC (3.8-10.6) k/uL Neutrophils # (Manual) (1.3-7.7) k/uL Lymphocytes # (Manual) (1.0-4.8) k/uL Monocytes # (Manual) (0-1.0) k/uL Metamyelocytes # (Man) (0) k/uL D-Dimer (<0.60) mg/L FEU Sodium (137-145) mmol/L Potassium (3.5-5.1) mmol/L BUN (9-20) mg/dL POC Glucose (mg/dL) 160 H 107 H (75-99) mg/dL AST (17-59) U/L ALT (4-49) U/L Lactate Dehydrogenase (313-618) U/L Total Protein (6.3-8.2) g/dL Albumin (3.5-5.0) g/dL Procalcitonin 0.19 H (0.02-0.09) ng/mL 02/20/21 02/20/21 02/20/21 Range/Units 06:11 06:11 06:11 WBC 23.3 H (3.8-10.6) k/uL Neutrophils # (Manual) 21.40 H (1.3-7.7) k/uL Lymphocytes # (Manual) 0.23 L (1.0-4.8) k/uL Monocytes # (Manual) 1.17 H (0-1.0) k/uL Metamyelocytes # (Man) 0.47 H (0) k/uL D-Dimer 0.75 H (<0.60) mg/L FEU Sodium 129 L (137-145) mmol/L Potassium 5.3 H (3.5-5.1) mmol/L BUN 33 H (9-20) mg/dL POC Glucose (mg/dL) (75-99) mg/dL AST 110 H (17-59) U/L ALT 643 H (4-49) U/L Lactate Dehydrogenase 1114 H (313-618) U/L Total Protein 6.2 L (6.3-8.2) g/dL Albumin 3.4 L (3.5-5.0) g/dL Procalcitonin (0.02-0.09) ng/mL 02/20/21 Range/Units 06:22 WBC (3.8-10.6) k/uL Neutrophils # (Manual) (1.3-7.7) k/uL Lymphocytes # (Manual) (1.0-4.8) k/uL Monocytes # (Manual) (0-1.0) k/uL Metamyelocytes # (Man) (0) k/uL D-Dimer (<0.60) mg/L FEU Sodium (137-145) mmol/L Potassium (3.5-5.1) mmol/L BUN (9-20) mg/dL POC Glucose (mg/dL) 110 H (75-99) mg/dL AST (17-59) U/L ALT (4-49) U/L Lactate Dehydrogenase (313-618) U/L Total Protein (6.3-8.2) g/dL Albumin (3.5-5.0) g/dL Procalcitonin (0.02-0.09) ng/mL Assessment and Plan Assessment: Acute hypoxemic respiratory failure secondary to coronavirus associated pneumonia. Elevated inflammatory markers, secondary to coronavirus infection. Benign essential hypertension. Plan: Plan dated 02/18/2021. The patient will continue on oxygen therapy. Remains on Decadron and Lovenox. The patient continues on vitamin cocktail. The patient has completed his Baricitinib. We will continue to follow make recommendations where appropriate. Labs and x-rays are reviewed. Prognosis is very guarded. Though the patient's on significant supplemental oxygen, he looks relatively stable. Plan dated 02/19/2021. The patient continues on Decadron and Lovenox. He remains on AIRVO. The patient also remains on vitamin C, vitamin D3, and zinc. The patient has completed RAUL. We will continue to follow make recommendations where appropriate. A chest x-ray will be ordered for tomorrow. No additional recommendations are made. Prognosis is very guarded. Plan dated 02/20/2021. The patient remains on vitamin C, vitamin D3, and zinc. In addition, the patient remains on Decadron and Lovenox. The patient did complete his RAUL. Also, his oxygen requirements have come down from 90% yesterday to 75% today. Continue to follow and make recommendations where appropriate. Prognosis is guarded. I encouraged the patient to move about in bed. Time with Patient: Less than 30
[2021-02-20] MEDS: MULTIVITAMINS, THERA 1 EACH TAB PO SCH (17:04)
--- NOTE | 2021-02-20 17:28 | P.PN ---
Subjective Progress Note Date: 02/20/21 Progress Note Date: 02/20/21 HISTORY OF PRESENT ILLNESS: This is a 56-year-old male with a past medical history significant for hypertension and hypertensive cardiovascular disease, hyperlipidemia, history of tobacco use and dependence, presented to the emergency department at [facility] with increased coughing and increased shortness breath that started last and has been getting worse over the last few days, yesterday he was extremely short of breath and his oxygen saturation was in the low 70s, his tried to get him to the ER but eventually called 911 and the patient was brought into the ER at [facility] where he had a chest x-ray that did show evidence of bilateral patchy infiltrate suggestive of Covid pneumonia, his COVID-19 PCR was positive, patient was started on nonrebreather, and later on was seen in consultation by pulmonary medicine and he was placed on Airvo and was started on Bacitinib 4 mg po daily and the patient was admitted to the hospital for further evaluation and treatment. 02/05: A shunt is currently on AirVol. He has complained of feeling tired and complaining of gastric reflux. Protonix will be increased to 40 mg IV push twice daily. Patient is been seen by pulmonary medicine and started on Bar icitinib, continued on dexamethasone 6 mg twice daily, Lovenox 40 mg daily. He has been afebrile, heart rate 92, blood pressure 137/86, pulse ox 97%. Repeat blood work reveals WBC 2.2, d-dimer 3.33, blood sugar 143. LDH 735, C-reactive protein 15.5. Chest x-ray reveals chronic emphysematous and pulmonary fibrotic changes with bilateral multifocal reticular nodular opacities consistent with COVID-19. Perhaps slight improvement in the right lung base. Ultrasound of bilateral lower extremities negative for DVT. 02/06: Last evening, patient was transferred into the intensive care unit as he was on 15 L nonrebreather was transitioned over to AirVo 60 L 90% with nonrebreather on top. Pulse ox is currently running 84-87%. He has been afebrile, heart rate in the 80s and 90s, respiratory rate 29, blood pressure 131/82. Patient is requesting Cepacol lozenges and nasal spray added. Ensure 3 times daily also added, patient has decreased appetite and limited oral intake. Repeat blood work reveals WBC 4.9, hemoglobin 13.6. Platelet count 381. D- dimer 2.15. LDH 1685. C-reactive protein 5.6. Repeat chest x-ray revealed continue his Covid infiltrate superimposed on bollous emphysema. Slight improvement in aeration in the right upper lobe. Patient is continued on dexamethasone, Lovenox, vitamin supplements and Baricitinib. 02/07:patient remains in the intensive care unit. He is on nonrebreather mask as well as high flow AirVo with O2 at 60 L, FiO2 90%. patient remains afebrile, heart rate in the 70s, respiratory rate 26, blood pressure 127/79, pulse ox 86- 88%, pulse ox drops in the low 80s when patient ate's. He is on ensure 3 times daily. Patient is complaining of some cough and back pain when he coughs. He is less fatigued today. 02/08: Patient remains in intensive care unit currently on nonrebreather, as well as a high flow airflow oxygen still borderline at 89%, patient is eating his protein, hysterectomy 8 his breakfast, he has no chest pain at this time he continues to be extreme short of breath, he has no abdominal pain, he had lost some of the states, he has no headache, he has no hemoptysis, he has no pleurisy, he has no edema. 02/09: Patient sitting up in a chair his feeling a bit better. He continues to be on nonrebreather along with airflow 60 L, he denies any chest pain, his continues to be somewhat short of breath, he continues to struggle with breathing, has no abdominal pain, he had a good bowel movement yesterday, he is tolerating his food, patient is stable at this point in time, he will stay in the intensive care unit due to his oxygen requirement, chest x-ray showed bilateral diffuse infiltrate suggestive of Covid pneumonia, he continues to be on Decadron 6 mg orally twice every day, we'll continue conservative management continue supportive care continue Baricitinib daily for a total of 14 doses today is 08/10 02/10: Patient is feeling better today he continues to be on airVO and NRB, continues to require a lot of oxygen, sitting up and eating his breakfast, he has no chest pain, no pleurisy, he does competitive achiness in the back of his legs, he is current;y on Baricitinib Day #6 out of 14. 02/11: Patient is seen today in the ICU. He is on AirVo had 90% 60 L and nonrebreather is used as needed. Patient is more mobile in his room. He has been afebrile, heart rate 81 and 96, blood pressure 127/72 area pulse ox 87-95%. Repeat blood work reveals WBC 15.5. Electrolytes normal. BUN 27 creatinine 0.84. Blood sugar 145. Liver function tests were normal. Patient is on regular diet and protein supplements. He is continued on Baricitinib, oral dexamethasone, Lovenox and supplements. 02/12: Patient remains in intensive care unit. He is on AirVo plus nonrebreather but he is keeping NRB in place except for oral intake. He has been afebrile, heart rate 89, respiratory rate 23-30, blood pressure 132/75, pulse ox 90%. CTA of the chest showed no pulmonary embolism. Small pericardial effusion. Extensive emphysematous changes and/or pulmonary fibrosis. Patient is on regular diet and protein supplements. No vomiting or diarrhea. WBC 14.2. Creatinine 0.76. Blood sugar 142. ALT 71. 02/13: Patient is currently on AirVo and nonrebreather with pulse ox 82-96%. He has been afebrile, heart rate in the 90s, respiratory rate 19-36. Blood pressure 132/84. WBC 17.9. Sodium 134. Blood sugar 125. Patient is continued on supplements, Baricitinib, dexamethasone and Lovenox. 02/14: Patient remains in the intensive care unit on airvo and nonrebreather. He states he was up in a chair for a little while yesterday. He still has coughing, no fever or chills. He is taking protein supplement. Patient has been afebrile, heart rate 97, blood pressure 139/88, respiratory rate 24, pulse ox 92%. WBC 17.6. Sodium 131. Patient is continued on supplements, Baricitinib, dexamethasone and Lovenox. 02/15: Patient remains in the intensive care unit on AirVo and nonrebreather with pulse ox of 94%. Patient's been afebrile, heart rate 86, respiratory rate 22, blood pressure 120/75. Review blood work reveals WBC 21. AST 82, ALT 229. Sodium 131, potassium 4.8, creatinine 0.88. Patient is complaining of oral pain, grinding his teeth. Patient is continued on supplements, Baricitinib, dex amethasone and Lovenox. 02/16: Patient moved out of the ICU, his currently in the telemetry unit, his monitor showing sinus tachycardia with PACs, he continues to be on airVo and nonrebreather his oxygen is about 93%, it does drop to 88-89% with activity and exertion, he continues to be generally weak, he has no chest pain at this time, he has no pleurisy, there is no hemoptysis, he has no abdominal pain, nausea or vomiting, he seems to be tolerating her treatment very well. 02/17: Patient is about the same he continues to be in a telemetry unit, he continues to have sinus tachycardia, he continues to be on same oxygen he continues to be about the same, he is currently maintained on Decadron as well as Baricitinib for a total of 14 doses, we will continue to monitor his liver function tests, and as he continues to have transaminitis., Patient denies any chest pain at this time he has no abdominal pain, nausea vomiting or diarrhea. 02/18: Patient is seen sitting up in a chair today. He is on AirVO nonrebreather with pulse ox 92%. His been afebrile, heart rate 112, blood pressure 128/73. Patient is currently on dexamethasone, Lovenox and vitamin supplements. He has completed his course of Baricitinib. Repeat blood work reveals WBC 31.2, hemoglobin 15, platelet count 601. Sodium 131, potassium 4.7, chloride 97, CO2 25, BUN 32 creatinine 0.8. Blood sugars are running between 117 and 130s. AST is 198, ALT 875. Alkaline phosphatase 82. 02/19: Patient is currently on AirVo only with pulse [place] of 8792%. He has been afebrile, heart rate 107, blood pressure 114/77. Have any nausea vomiting, no diarrhea. He states he is feeling better from yesterday. No repeat chest x-ray is scheduled for today. Repeat blood work will be ordered for tomorrow. 02/20: Patient is currently on AirVo with no NRB, continues to have oxygen saturation around 88-92%, he continues to be somewhat short of breath, he continues to have sinus tachycardia in the monitor, he denies any nausea or vomiting he has no chest pain, he has no coughing, or hemoptysis, he appears to be a bit better today than he was yesterday repeat a chest x-ray continues to show coving pneumonia., REVIEW OF SYSTEMS: Constitutional: Denies fever, chills, night sweats. No weight change. positive for weakness, reports fatigue no lethargy. Reports daytime sleepiness. HEENT: No headache. No nasal drainage or congestion. No epistaxis. Reports sore throat. Lungs: Continued shortness of breath with oxygen therapy, positive for cough, positive for sputum production. positive for wheezing. Reports dyspnea with minimal activity. Cardiovascular: No chest pain, no lower extremity edema. No palpitations. No paroxysmal nocturnal dyspnea. No orthopnea. No lightheadedness or dizziness. No syncopal episodes. Abdominal: denies abdominal pain. No nausea, vomiting. Denies diarrhea. No constipation. No bloody or tarry stools. Reports loss of appetite. Reports gastric reflux. Genitourinary: No dysuria, increased frequency, urgency. No urinary retention. Musculoskeletal: positive for myalgias. positive for generalized muscle weakness, no gait dysfunction, no frequent falls. No back pain. No neck pain. Integumentary: No wounds, no lesions. No rash or pruritus. No unusual bruising. Neurologic: No aphasia. No facial droop. No change in mentation. No head injury. No headache. No paralysis. No paresthesia. Psychiatric: No depression. No anxiety. Endocrine: No abnormal blood sugars. No weight change. PHYSICAL EXAMINATION: General: 56-year-old male sitting in recliner no acute respiratory distress. Patient appears to be more comfortable from yesterday. HEENT: Head is atraumatic, normocephalic, pupils were equal round, sclera nonicteric, conjunctivae were pale, mucous membranes of the mouth are slightly dry. Neck: Supple, no JVP, normal carotid upstroke bilaterally, no lymphadenopathy. Chest: Decreased breath sounds at the bases, few rhonchi, moderate expiratory wheezes, no chest wall tenderness, no intercostal retractions at rest. Heart: First heart sound is normal, second heart sounds normal, there is no gallop or murmur. Abdomen: Soft, nontender, nondistended, positive bowel sounds, no hepatosplenomegaly. Extremities: There is no edema no calf tenderness DP +2 bilaterally. Neurologic examination: Patient is awake alert and oriented X 3, cranial nerves II-12 appear grossly intact. ASSESSMENT AND PLAN: 1. Acute hypoxemic respiratory failure due to bilateral patchy interstitial pneumonia due to COVID-19 pneumonia. Continue patient on Decadron 6 mg orally twice every day, Vitamin C 1000 mg orally once every day, zinc 220 mg once every day, vitamin D 1000 units once every day, completed course of Baricitinib, continue oxygen therapy on AirVo. 2. Bilateral Covid pneumonia with ARDS. Continue with Airvo and nonrebreather, continue dexamethasone 6 mg orally twice every day, continue with supportive care. 3. Mild non-anion gap metabolic acidosis. Resolved. 4. Moderate protein calorie malnutrition secondary to decreased appetite and difficulty eating with oxygen mask. Continue Ensure 3 times daily. 5. Acute drug-induced hepatitis. Monitor the patient CMP in the next 24 hours. 6. DVT prophylaxis. Continue Lovenox 40 mg subcutaneously every 24 hours 7. GERD and GI prophylaxis. Continue patient on Protonix 40 mg IV push every 12 hours as well as Carafate 1 g orally twice every day . 8. Patient is full code. 9. Guarded prognosis. Objective - Vital Signs Vital signs: Vital Signs Temp 97.8 F 02/20/21 04:00 Pulse 116 H 02/20/21 08:00 Resp 22 02/20/21 04:00 BP 124/70 02/20/21 08:00 Pulse Ox 91 L 02/20/21 04:09 Intake & Output 02/19/21 02/20/21 02/20/21 18:59 06:59 18:59 Intake Total 480 480 Output Total 1650 Balance 480 -1650 480 Weight 82.7 kg Intake: Oral 480 480 Output: Urine 1650 Other: Voiding Method Urinal # Voids 1 # Bowel Movements 1 - Labs CBC & Chem 7: 02/20/21 06:11 02/20/21 06:11 Labs: Abnormal Lab Results - Last 24 Hours (Table) 02/19/21 02/19/21 02/20/21 Range/Units 17:10 20:50 06:11 WBC (3.8-10.6) k/uL Neutrophils # (Manual) (1.3-7.7) k/uL Lymphocytes # (Manual) (1.0-4.8) k/uL Monocytes # (Manual) (0-1.0) k/uL Metamyelocytes # (Man) (0) k/uL D-Dimer (<0.60) mg/L FEU Sodium (137-145) mmol/L Potassium (3.5-5.1) mmol/L BUN (9-20) mg/dL POC Glucose (mg/dL) 160 H 107 H (75-99) mg/dL AST (17-59) U/L ALT (4-49) U/L Lactate Dehydrogenase (313-618) U/L Total Protein (6.3-8.2) g/dL Albumin (3.5-5.0) g/dL Procalcitonin 0.19 H (0.02-0.09) ng/mL 02/20/21 02/20/21 02/20/21 Range/Units 06:11 06:11 06:11 WBC 23.3 H (3.8-10.6) k/uL Neutrophils # (Manual) 21.40 H (1.3-7.7) k/uL Lymphocytes # (Manual) 0.23 L (1.0-4.8) k/uL Monocytes # (Manual) 1.17 H (0-1.0) k/uL Metamyelocytes # (Man) 0.47 H (0) k/uL D-Dimer 0.75 H (<0.60) mg/L FEU Sodium 129 L (137-145) mmol/L Potassium 5.3 H (3.5-5.1) mmol/L BUN 33 H (9-20) mg/dL POC Glucose (mg/dL) (75-99) mg/dL AST 110 H (17-59) U/L ALT 643 H (4-49) U/L Lactate Dehydrogenase 1114 H (313-618) U/L Total Protein 6.2 L (6.3-8.2) g/dL Albumin 3.4 L (3.5-5.0) g/dL Procalcitonin (0.02-0.09) ng/mL 02/20/21 Range/Units 06:22 WBC (3.8-10.6) k/uL Neutrophils # (Manual) (1.3-7.7) k/uL Lymphocytes # (Manual) (1.0-4.8) k/uL Monocytes # (Manual) (0-1.0) k/uL Metamyelocytes # (Man) (0) k/uL D-Dimer (<0.60) mg/L FEU Sodium (137-145) mmol/L Potassium (3.5-5.1) mmol/L BUN (9-20) mg/dL POC Glucose (mg/dL) 110 H (75-99) mg/dL AST (17-59) U/L ALT (4-49) U/L Lactate Dehydrogenase (313-618) U/L Total Protein (6.3-8.2) g/dL Albumin (3.5-5.0) g/dL Procalcitonin (0.02-0.09) ng/mL
[2021-02-21] MEDS: PANTOPRAZOLE 40 MG TABLET PO SCH ×2 (06:26→16:39)
[2021-02-21] MEDS: CHOLECALCIFEROL 25 MCG (1000 IU) TABLET PO SCH (08:09)
[2021-02-21] MEDS: ASCORBIC ACID 500 MG TAB PO SCH (08:09)
[2021-02-21] MEDS: ENOXAPARIN 40 MG/0.4 ML SYRINGE SQ SCH ×2 (08:09→21:46)
[2021-02-21] MEDS: MULTIVITAMINS, THERA 1 EACH TAB PO SCH (08:09)
[2021-02-21] MEDS: dexAMETHasone 2 MG TAB PO SCH ×2 (08:09→21:46)
[2021-02-21] MEDS: ZINC SULFATE 220 MG CAP PO SCH (08:09)
--- NOTE | 2021-02-21 11:45 | P.PN ---
Subjective This is a pleasant 56 years old male with no significant past medical history presents with respiratory symptoms found to have bilateral Pipe pneumonia and hypoxia. Patient is been monitored closely and followed by the pulmonary service [place]. Currently he is on 60 L oxygen via high flow nasal cannula with FiO2 of 68%. Slightly tachypneic and got short of breath when he talks. Labs reviewed WBC 23k, d-dimer 0.75, sodium slightly low 129, potassium slightly high at 5.3, liver enzymes slightly elevated, lactate dehydrogenase is elevated 1114. Poorcalcitonin is 0.19, was 0.08. Chest x-ray showing COPD with patchy bilateral Covid pneumonia. Patient currently kept on dexamethasone 6 mg daily, vitamin C, vitamin D and zinc. Also he is on Pepcid and Lovenox. Objective - Vital Signs Vital signs: Vital Signs Temp 97.0 F L 02/21/21 08:00 Pulse 96 02/21/21 08:00 Resp 22 02/21/21 08:00 BP 139/86 02/21/21 08:00 Pulse Ox 93 L 02/21/21 09:51 Intake & Output 02/20/21 02/21/21 02/21/21 18:59 06:59 18:59 Intake Total 480 240 240 Output Total 1500 Balance -1020 240 240 Intake: Oral 480 240 240 Output: Urine 1500 Other: Voiding Method Urinal # Voids 1 2 # Bowel Movements 1 2 - Exam GENERAL: The patient is alert and oriented x3, not in any acute distress. Well developed, well nourished. HEENT: Pupils are round and equally reacting to light. EOMI. No scleral icterus. No conjunctival pallor. Normocephalic, atraumatic. No pharyngeal erythema. No thyromegaly. CARDIOVASCULAR: S1 and S2 present. No murmurs, rubs, or gallops. -PULMONARY: Chest is clear to auscultation, no wheezing or crackles. Bilateral crepitation, tachypnea ABDOMEN: Soft, nontender, nondistended, normoactive bowel sounds. No palpable organomegaly. MUSCULOSKELETAL: No joint swelling or deformity. EXTREMITIES: No cyanosis, clubbing, or pedal edema. NEUROLOGICAL: Gross neurological examination did not reveal any focal deficits. SKIN: No rashes. no petechiae. - Labs CBC & Chem 7: 02/20/21 06:11 02/20/21 06:11 Labs: Abnormal Lab Results - Last 24 Hours (Table) 02/20/21 Range/Units 06:11 Neutrophils # (Manual) 21.40 H (1.3-7.7) k/uL Lymphocytes # (Manual) 0.23 L (1.0-4.8) k/uL Monocytes # (Manual) 1.17 H (0-1.0) k/uL Metamyelocytes # (Man) 0.47 H (0) k/uL Assessment and Plan Assessment: Bilateral Covid pneumonia Acute hypoxic respiratory failure Increased inflammatory markers Plan: This is a pleasant 56 race old male who presents with covid pneumonia Continue with dexamethasone Continue with vitamin C, vitamin D and zinc Pulmonary consult Labs and medication were reviewed.. Continue same treatment. Continue with symptomatic treatment. Resume home medication. Monitor lytes and vitals. DVT and GI prophylaxis. Further recommendationsas per clinical course of the patient DVT prophylaxis: Subcutaneous Lovenox GI Prophylaxis: Pepcid Prognosis is guarded
--- NOTE | 2021-02-21 14:55 | P.PN ---
Subjective Progress Note Date: 02/21/21 Principal diagnosis: Coronavirus associated pneumonia. 02/12/2021, patient remains in the ICU, remains on high flow oxygen, he is on airvo at 90% and 60 L flow, patient is basically about the same as yesterday, not much of a change, he does seem to be comfortable, his O2 saturation remains marginal in the low 90s. His CT angiogram of the chest was negative for pulmonary embolism. WBC count today is 14.2 hemoglobin 14.1. D-dimer was 10.98 yesterday. Again he had a negative CT angiogram of the chest. And negative Doppler of the legs. Electrolytes are normal renal profile is normal. Patient remains on the COVID-19 cocktail, he is also on Lovenox 40 mg subcu twice a day, he is still on baricitinib and on Decadron at 6 mg by mouth twice a day. He is on GI prophylaxis. Not quite ready to be transferred out of the ICU, but if he remains about the same, may transfer the patient out to the floor in the next 24 hours. 02/13/2021, patient remains in the ICU, remains on high oxygen, no change since yesterday, patient is feeling clinically a bit better, breathing easier, but his overall status is basically the same. O2 saturation remains very marginal in the low 90s. Patient is afebrile. He is hemodynamically stable. WBC count of 17.9 hemoglobin is 13.9, basic metabolic profile is normal renal profile is normal. CT angiogram showed no evidence of thrombus embolic disease. Patient remains on Lovenox 40 mg subcu twice a day 4 elevated d-dimer. Remains on baricitinib, and on the rest of the COVID-19 cocktail including Decadron 6 mg by mouth twice a day. Reevaluated today on 02/14/2021, patient is basically the same compared to yesterday and compared to the last few days. Remains on high flow oxygen, patient is on 90%, 60 L flow, and he is also on non-rebreather mask. O2 saturations remained marginal, patient is feeling better clinically. Not much of a size changer the last couple of days. WBC count is the same as yesterday 17.6. CBC is relatively normal. Renal profile is normal. Liver enzymes are a bit elevated. Last LDH few days ago was 1395 and C-reactive protein 1.4. The patient is seen today 02/15/2021 in follow-up in the intensive care unit. He is currently still requiring AirVo high flow oxygen at 60 L and 90% FiO2 with a nonrebreather mask. He is doing about the same compared to yesterday. No worsening shortness of breath. His appetite remains good. Chest x-ray continues to show patchy basilar infiltrates. Unchanged. We count 21.0. Hemoglobin 14.7. Platelets 656. Lymphocytes 0.63. Sodium 131. Potassium 4.8. Creatinine 0.88. AST 86. ALT 229. He is continued on Baricitinib, Decadron, Lovenox vitamin supplements. No IV fluids currently. Reevaluated today on 02/16/2021, patient remains on high flow oxygen, he is presently on airvo at 85% and 60 L flow. O2 saturation is in the low 90s. Clinically the patient is feeling a bit better, breathing a bit easier, nonetheless he continues to remain on relatively high flow oxygen. Patient is noted to have leukocytosis today with WBC of 26.8 hemoglobin is 15.1. He is afebrile. And I am a bit concerned about his white count steadily going up. Chest x-ray 2 days ago continues to show bilateral infiltrates. I will recommend checking a broken stone in level on this patient, and if elevated may start him on antibiotics and discontinue baricitinib Reevaluated today on 02/17/21, patient remains on high flow oxygen. He is actually on 90% FiO2, 40 L flow, and his O2 saturation is ranging between 90-93% at best. Clinically however the patient tells me that his feeling better, breathing easier, he has a good appetite, and he is sleeping well. Pro- calcitonin level came back 0.08, hence the possibility of underlying bacterial pneumonia is very unlikely. Chest x-ray showed relatively no change in his bilateral infiltrates. Basically about the same. WBC count remains elevated at 26.3 hemoglobin 14.2 electrolytes and renal profile are normal Progress note dated 02/18/2021. 56-year-old male, again seen in room 367. The patient has been here in the hospital for 14 days. The patient remains on AIRVO, at 60 L/m and an FiO2 of 90%, as well as a nonrebreather mask. The patient is not receiving any IV fluids. He sitting up in the chair. Actually looks pretty comfortable. He feels okay. There is no use of accessory muscles, or conversational dyspnea. White count 31.2, hemoglobin hematocrit normal. Platelet count 601,000. Sodium 131, potassium 4.7, chlorides 97, CO2 25, anion gap 9, BUN 32, creatinine 0.83. AST 198 and ALT is 875. Chest x-rays reviewed from yesterday shows stable bilateral left greater than right, airspace opacities. Progress note dated 02/19/2021. 56-year-old male, again seen in room 367. Currently, the patient remains on this AIRVO at 60 L/m with an FiO2 of 90%. His saturations are 91%. He sitting at the bedside. He feels may be slightly better than he did yesterday. He is not receiving any IV fluids. No new labs today. Labs from yesterday were ready reviewed. No new chest x-ray to report. The patient remains on vitamin C, vitamin D3, Decadron, Lovenox, and zinc. Progress note dated 02/20/2021. 56-year-old male, again seen in room 367. The patient remains on AIRVO, at 60 L/m, and with an FiO2 of about 73%. Yesterday, he had an FiO2 of 90%. Clinically, he feels reasonable. He is very short of breath on any exertion. The patient is not receiving any IV fluids. He is laying in bed. For the last couple of days, he was sitting up in a chair. White count 23.3, hemoglobin 14.8, hematocrit 43.7, platelet count 405,000. D-dimer 0.75. Sodium 129, potassium 5.3, chlorides 99, CO2 23, anion gap 7, BUN 33, creatinine 0.84. Pro- calcitonin level was 0.19. ALT 643. AST is 110. LDH is 1114. A chest x-ray today, is unchanged, and shows changes of COPD, as well as patchy bilateral mostly lower lobe infiltrates. Progress note dated 02/19/2021. 56-year-old male, again seen in room 367. The patient is currently on AIRVO, with settings of 60 L/m with an FiO2 of 70%. He's not getting any IV fluids. The patient is feeling much better he says. He states that his breathing is improved, and he feels much less short of breath. He sitting up in the chair next to the bed. There are no labs from today. Labs from yesterday were reviewed. Chest x-ray from yesterday shows diffuse bilateral patchy infiltrates, which is essentially unchanged. Objective - Vital Signs Vital signs: Vital Signs Temp 97.2 F L 02/21/21 11:41 Pulse 108 H 02/21/21 11:41 Resp 22 02/21/21 11:41 BP 130/74 02/21/21 11:41 Pulse Ox 91 L 02/21/21 13:06 Intake & Output 02/20/21 02/21/21 02/21/21 18:59 06:59 18:59 Intake Total 480 240 720 Output Total 1500 Balance -1020 240 720 Intake: Oral 480 240 720 Output: Urine 1500 Other: Voiding Method Urinal # Voids 1 2 # Bowel Movements 1 2 - Exam No acute distress, oriented 3. Currently on AIRVO only. Saturations are 91%. HEENT examination is grossly unremarkable. Neck supple. Full range of motion. No adenopathy thyromegaly or neck vein distention. Cardiovascular examination reveals regular rhythm rate. S1-S2 normal. No S3 or S4. No discernible murmur noted. Heart rate 108 bpm. Heart sounds are distant. Lungs reveal mild to moderate bilateral expiratory rhonchi. No wheezes. Diffuse bibasilar crackles. Breath sounds equal bilaterally. Saturations are 91%. Abdomen soft bowel sounds are heard. No masses or tenderness. Extremities are intact. No cyanosis clubbing or edema. Skin is without rash or lesion. Neurologic examination is brief but nonfocal. - Labs CBC & Chem 7: 02/20/21 06:11 02/20/21 06:11 Assessment and Plan Assessment: Acute hypoxemic respiratory failure secondary to coronavirus associated pneumonia. Elevated inflammatory markers, secondary to coronavirus infection. Benign essential hypertension. Plan: Plan dated 02/18/2021. The patient will continue on oxygen therapy. Remains on Decadron and Lovenox. The patient continues on vitamin cocktail. The patient has completed his Baricitinib. We will continue to follow make recommendations where appropriate. Labs and x-rays are reviewed. Prognosis is very guarded. Though the patient's on significant supplemental oxygen, he looks relatively stable. Plan dated 02/19/2021. The patient continues on Decadron and Lovenox. He remains on AIRVO. The patient also remains on vitamin C, vitamin D3, and zinc. The patient has completed RAUL. We will continue to follow make recommendations where appropriate. A chest x-ray will be ordered for tomorrow. No additional recommendations are made. Prognosis is very guarded. Plan dated 02/20/2021. The patient remains on vitamin C, vitamin D3, and zinc. In addition, the patient remains on Decadron and Lovenox. The patient did complete his RAUL. Also, his oxygen requirements have come down from 90% yesterday to 75% today. Continue to follow and make recommendations where appropriate. Prognosis is guarded. I encouraged the patient to move about in bed. Plan dated 02/21/2021. The patient remains on vitamin C, vitamin D3, and zinc. The patient also is on Decadron and Lovenox. Labs and x-rays from yesterday are reviewed. The patient did complete his RAUL. Clinically, the patient looks about the same but he feels much improved. The patient will continue on AIRVO for the time being. We will continue to follow and make recommendations where appropriate. I asked him to deep breathe, cough, and clear secretions, and also use the incentive spirometer. Prognosis is guarded. Time with Patient: Less than 30
[2021-02-22] MEDS: PANTOPRAZOLE 40 MG TABLET PO SCH ×2 (06:32→16:15)
[2021-02-22] MEDS: MULTIVITAMINS, THERA 1 EACH TAB PO SCH (07:51)
[2021-02-22] MEDS: ENOXAPARIN 40 MG/0.4 ML SYRINGE SQ SCH ×2 (07:51→21:27)
[2021-02-22] MEDS: ZINC SULFATE 220 MG CAP PO SCH (07:51)
[2021-02-22] MEDS: ASCORBIC ACID 500 MG TAB PO SCH (07:51)
[2021-02-22] MEDS: CHOLECALCIFEROL 25 MCG (1000 IU) TABLET PO SCH (07:51)
[2021-02-22] MEDS: dexAMETHasone 2 MG TAB PO SCH ×2 (07:51→21:27)
[2021-02-22 10:16] LABS: Calcium 8.8 mg/dL (8.4-10.2)
--- NOTE | 2021-02-22 12:19 | P.PN ---
Subjective This is a pleasant 56 years old male with no significant past medical history presents with respiratory symptoms found to have bilateral Pipe pneumonia and hypoxia. Patient is been monitored closely and followed by the pulmonary service [place]. Currently he is on 60 L oxygen via high flow nasal cannula with FiO2 of 68%. Slightly tachypneic and got short of breath when he talks. Labs reviewed WBC 23k, d-dimer 0.75, sodium slightly low 129, potassium slightly high at 5.3, liver enzymes slightly elevated, lactate dehydrogenase is elevated 1114. Poorcalcitonin is 0.19, was 0.08. Chest x-ray showing COPD with patchy bilateral Covid pneumonia. Patient currently kept on dexamethasone 6 mg daily, vitamin C, vitamin D and zinc. Also he is on Pepcid and Lovenox. 02/22/2021 Patient reports some improvement in his shortness of breath. Today following a T-max trying to wean him down with lowering oxygen requirement 60 down to 40 L per minute with FiO2 68 down to 50% this morning. Patient is to cardiac and more tachypneic during these attempts for now, we will keep monitoring. However he does not report any worsening dyspnea. Sodium improved to 134, potassium down to 5.0. He remains on dexamethasone and multiple vitamins. Also he is on Lovenox and Pepcid We will keep monitoring Objective - Vital Signs Vital signs: Vital Signs Temp 97.7 F 02/22/21 11:37 Pulse 115 H 02/22/21 11:37 Resp 30 H 02/22/21 11:37 BP 167/95 02/22/21 11:37 Pulse Ox 88 L 02/22/21 11:37 Intake & Output 02/21/21 02/22/21 02/22/21 18:59 06:59 18:59 Intake Total 960 240 Output Total 1700 775 Balance 960 -1700 -535 Weight 81 kg Intake: Oral 960 240 Output: Urine 1700 775 Other: Voiding Method Urinal Urinal Urinal - Exam GENERAL: The patient is alert and oriented x3, not in any acute distress. Well developed, well nourished. HEENT: Pupils are round and equally reacting to light. EOMI. No scleral icterus. No conjunctival pallor. Normocephalic, atraumatic. No pharyngeal erythema. No thyromegaly. CARDIOVASCULAR: S1 and S2 present. No murmurs, rubs, or gallops. -PULMONARY: Chest is clear to auscultation, no wheezing or crackles. Bilateral crepitation, tachypnea ABDOMEN: Soft, nontender, nondistended, normoactive bowel sounds. No palpable organomegaly. MUSCULOSKELETAL: No joint swelling or deformity. EXTREMITIES: No cyanosis, clubbing, or pedal edema. NEUROLOGICAL: Gross neurological examination did not reveal any focal deficits. SKIN: No rashes. no petechiae. - Labs CBC & Chem 7: 02/20/21 06:11 02/22/21 08:41 Labs: Abnormal Lab Results - Last 24 Hours (Table) 02/22/21 Range/Units 08:41 Sodium 134 L (137-145) mmol/L BUN 40 H (9-20) mg/dL Glucose 115 H (74-99) mg/dL Assessment and Plan Assessment: Bilateral Covid pneumonia Acute hypoxic respiratory failure Increased inflammatory markers Plan: This is a pleasant 56 race old male who presents with covid pneumonia Continue with dexamethasone Continue with Oxygen as needed Continue with vitamin C, vitamin D and zinc Pulmonary consult Labs and medication were reviewed.. Continue same treatment. Continue with symptomatic treatment. Resume home medication. Monitor lytes and vitals. DVT and GI prophylaxis. Further recommendationsas per clinical course of the patient DVT prophylaxis: Subcutaneous Lovenox GI Prophylaxis: Pepcid Prognosis is guarded
--- NOTE | 2021-02-22 18:35 | P.PN ---
Subjective Progress Note Date: 02/22/21 Principal diagnosis: Coronavirus associated pneumonia. 02/12/2021, patient remains in the ICU, remains on high flow oxygen, he is on airvo at 90% and 60 L flow, patient is basically about the same as yesterday, not much of a change, he does seem to be comfortable, his O2 saturation remains marginal in the low 90s. His CT angiogram of the chest was negative for pulmonary embolism. WBC count today is 14.2 hemoglobin 14.1. D-dimer was 10.98 yesterday. Again he had a negative CT angiogram of the chest. And negative Doppler of the legs. Electrolytes are normal renal profile is normal. Patient remains on the COVID-19 cocktail, he is also on Lovenox 40 mg subcu twice a day, he is still on baricitinib and on Decadron at 6 mg by mouth twice a day. He is on GI prophylaxis. Not quite ready to be transferred out of the ICU, but if he remains about the same, may transfer the patient out to the floor in the next 24 hours. 02/13/2021, patient remains in the ICU, remains on high oxygen, no change since yesterday, patient is feeling clinically a bit better, breathing easier, but his overall status is basically the same. O2 saturation remains very marginal in the low 90s. Patient is afebrile. He is hemodynamically stable. WBC count of 17.9 hemoglobin is 13.9, basic metabolic profile is normal renal profile is normal. CT angiogram showed no evidence of thrombus embolic disease. Patient remains on Lovenox 40 mg subcu twice a day 4 elevated d-dimer. Remains on baricitinib, and on the rest of the COVID-19 cocktail including Decadron 6 mg by mouth twice a day. Reevaluated today on 02/14/2021, patient is basically the same compared to yesterday and compared to the last few days. Remains on high flow oxygen, patient is on 90%, 60 L flow, and he is also on non-rebreather mask. O2 saturations remained marginal, patient is feeling better clinically. 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 WBC count is the same as yesterday 17.6. CBC is relatively normal. Renal profile is normal. Liver enzymes are a bit elevated. Last LDH few days ago was 1395 and C-reactive protein 1.4. The patient is seen today 02/15/2021 in follow-up in the intensive care unit. He is currently still requiring AirVo high flow oxygen at 60 L and 90% FiO2 with a nonrebreather mask. He is doing about the same compared to yesterday. No worsening shortness of breath. His appetite remains good. Chest x-ray continues to show patchy basilar infiltrates. Unchanged. We count 21.0. Hemoglobin 14.7. Platelets 656. Lymphocytes 0.63. Sodium 131. Potassium 4.8. Creatinine 0.88. AST 86. ALT 229. He is continued on Baricitinib, Decadron, Lovenox vitamin supplements. No IV fluids currently. Reevaluated today on 02/16/2021, patient remains on high flow oxygen, he is presently on airvo at 85% and 60 L flow. O2 saturation is in the low 90s. Clinically the patient is feeling a bit better, breathing a bit easier, nonetheless he continues to remain on relatively high flow oxygen. Patient is noted to have leukocytosis today with WBC of 26.8 hemoglobin is 15.1. He is afebrile. And I am a bit concerned about his white count steadily going up. Chest x-ray 2 days ago continues to show bilateral infiltrates. I will recommend checking a broken stone in level on this patient, and if elevated may start him on antibiotics and discontinue baricitinib Reevaluated today on 02/17/21, patient remains on high flow oxygen. He is actually on 90% FiO2, 40 L flow, and his O2 saturation is ranging between 90-93% at best. Clinically however the patient tells me that his feeling better, breathing easier, he has a good appetite, and he is sleeping well. Pro- calcitonin level came back 0.08, hence the possibility of underlying bacterial pneumonia is very unlikely. Chest x-ray showed relatively no change in his bilateral infiltrates. Basically about the same. WBC count remains elevated at 26.3 hemoglobin 14.2 electrolytes and renal profile are normal Progress note dated 02/18/2021. 56-year-old male, again seen in room 367. The patient has been here in the hospital for 14 days. The patient remains on AIRVO, at 60 L/m and an FiO2 of 90%, as well as a nonrebreather mask. The patient is not receiving any IV fluids. He sitting up in the chair. Actually looks pretty comfortable. He feels okay. There is no use of accessory muscles, or conversational dyspnea. White count 31.2, hemoglobin hematocrit normal. Platelet count 601,000. Sodium 131, potassium 4.7, chlorides 97, CO2 25, anion gap 9, BUN 32, creatinine 0.83. AST 198 and ALT is 875. Chest x-rays reviewed from yesterday shows stable bilateral left greater than right, airspace opacities. Progress note dated 02/19/2021. 56-year-old male, again seen in room 367. Currently, the patient remains on this AIRVO at 60 L/m with an FiO2 of 90%. His saturations are 91%. He sitting at the bedside. He feels may be slightly better than he did yesterday. He is not receiving any IV fluids. No new labs today. Labs from yesterday were ready reviewed. No new chest x-ray to report. The patient remains on vitamin C, vitamin D3, Decadron, Lovenox, and zinc. Progress note dated 02/20/2021. 56-year-old male, again seen in room 367. The patient remains on AIRVO, at 60 L/m, and with an FiO2 of about 73%. Yesterday, he had an FiO2 of 90%. Clinically, he feels reasonable. He is very short of breath on any exertion. The patient is not receiving any IV fluids. He is laying in bed. For the last couple of days, he was sitting up in a chair. White count 23.3, hemoglobin 14.8, hematocrit 43.7, platelet count 405,000. D-dimer 0.75. Sodium 129, potassium 5.3, chlorides 99, CO2 23, anion gap 7, BUN 33, creatinine 0.84. Pro- calcitonin level was 0.19. ALT 643. AST is 110. LDH is 1114. A chest x-ray today, is unchanged, and shows changes of COPD, as well as patchy bilateral mostly lower lobe infiltrates. Progress note dated 02/19/2021. 56-year-old male, again seen in room 367. The patient is currently on AIRVO, with settings of 60 L/m with an FiO2 of 70%. He's not getting any IV fluids. The patient is feeling much better he says. He states that his breathing is improved, and he feels much less short of breath. He sitting up in the chair next to the bed. There are no labs from today. Labs from yesterday were reviewed. Chest x-ray from yesterday shows diffuse bilateral patchy infiltrates, which is essentially unchanged. Progress note dated 02/22/2021. 56-year-old male, again seen in room 367. Currently, he is on AIRVO, with settings of 40 L/m and 50%. That is an improvement. He's not receiving any IV fluids. His saturations are hovering in the high 80s. Clinically, he states that he's feeling much better. His breathing is much improved. Today, he sitting at the site of the bed. He denies any chest pain or chest discomfort. His no fever or chills. He is shortness of breath on exertion, but that is improved. Sodium 134, potassium 5, chlorides 104, CO2 23, anion gap 7, BUN 40, and creatinine 1.24. Objective - Vital Signs Vital signs: Vital Signs Temp 98 F 02/22/21 16:00 Pulse 118 H 02/22/21 16:00 Resp 24 02/22/21 16:00 BP 148/85 02/22/21 16:00 Pulse Ox 88 L 02/22/21 16:00 Intake & Output 02/21/21 02/22/21 02/22/21 18:59 06:59 18:59 Intake Total 960 240 Output Total 1700 1175 Balance 960 -1700 -935 Weight 81 kg Intake: Oral 960 240 Output: Urine 1700 1175 Other: Voiding Method Urinal Urinal Urinal - Exam No acute distress, oriented 3. Currently on AIRVO only. Saturations are 89%. HEENT examination is grossly unremarkable. Neck supple. Full range of motion. No adenopathy thyromegaly or neck vein distention. Cardiovascular examination reveals regular rhythm rate. S1-S2 normal. No S3 or S4. No discernible murmur noted. Heart rate 100 bpm. Heart sounds are distant. Lungs reveal mild to moderate bilateral expiratory rhonchi. No wheezes. Diffuse bibasilar crackles. Breath sounds equal bilaterally. Saturations are 89 %. Abdomen soft bowel sounds are heard. No masses or tenderness. Extremities are intact. No cyanosis clubbing or edema. Skin is without rash or lesion. Neurologic examination is brief but nonfocal. - Labs CBC & Chem 7: 02/20/21 06:11 02/22/21 08:41 Labs: Abnormal Lab Results - Last 24 Hours (Table) 02/22/21 Range/Units 08:41 Sodium 134 L (137-145) mmol/L BUN 40 H (9-20) mg/dL Glucose 115 H (74-99) mg/dL Assessment and Plan Assessment: Acute hypoxemic respiratory failure secondary to coronavirus associated pn [place], currently on AIRVO. Elevated inflammatory markers, secondary to coronavirus infection. Benign essential hypertension. Plan: Plan dated 02/18/2021. The patient will continue on oxygen therapy. Remains on Decadron and Lovenox. The patient continues on vitamin cocktail. The patient has completed his Baricitinib. We will continue to follow make recommendations where appropriate. Labs and x-rays are reviewed. Prognosis is very guarded. Though the patient's on significant supplemental oxygen, he looks relatively stable. Plan dated 02/19/2021. The patient continues on Decadron and Lovenox. He remains on AIRVO. The patient also remains on vitamin C, vitamin D3, and zinc. The patient has completed RAUL. We will continue to follow make recommendations where appropriate. A chest x-ray will be ordered for tomorrow. No additional rec ommendations are made. Prognosis is very guarded. Plan dated 02/20/2021. The patient remains on vitamin C, vitamin D3, and zinc. In addition, the patient remains on Decadron and Lovenox. The patient did complete his RAUL. Also, his oxygen requirements have come down from 90% yesterday to 75% today. Continue to follow and make recommendations where appropriate. Prognosis is guarded. I encouraged the patient to move about in bed. Plan dated 02/21/2021. The patient remains on vitamin C, vitamin D3, and zinc. The patient also is on Decadron and Lovenox. Labs and x-rays from yesterday are reviewed. The patient did complete his RAUL. Clinically, the patient looks about the same but he feels much improved. The patient will continue on AIRVO for the time being. We will continue to follow and make recommendations where appropriate. I asked him to deep breathe, cough, and clear secretions, and also use the incentive spirometer. Prognosis is guarded. Plan dated 02/22/2021. The patient remains on vitamin C, vitamin D3, and zinc. The patient is also on Decadron and Lovenox. The patient did complete his RAUL. Currently, the patient's on AIRVO, at 40 L/m with an FiO2 of 50%. He is not receiving any IV fluids. The patient saturations are in the high 80s. We will continue to follow make recommendations where appropriate. Prognosis is guarded. The patient does have a positive attitude. He's encouraged to deep breathe, cough, and clear secretions. We also encouraged him to use his incentive spirometer, every hour while awake. Time with Patient: Less than 30
[2021-02-23] MEDS: PANTOPRAZOLE 40 MG TABLET PO SCH ×2 (06:47→17:08)
--- NOTE | 2021-02-23 07:29 | XR ---
EXAMINATION TYPE: XR chest 1V portable DATE OF EXAM: 02/23/2021 CLINICAL HISTORY: Difficulty breathing and CoVID pneumonia progress study. TECHNIQUE: Single AP portable upright view of the chest is obtained. COMPARISON: Chest x-ray from 3 days earlier FINDINGS: Chronic parenchymal changes bilaterally with increased opacities left mid and bibasilar re gions redemonstrated. Cardiac silhouette size stable and within normal limits. The osseous structures are intact. IMPRESSION: Chronic parenchymal changes with left mid lung and bibasilar opacities consistent with kn own covid-19 infection are redemonstrated, no significant change from most recent x-ray.
[2021-02-23] MEDS: dexAMETHasone 2 MG TAB PO SCH (08:27)
[2021-02-23] MEDS: CHOLECALCIFEROL 25 MCG (1000 IU) TABLET PO SCH (08:27)
[2021-02-23] MEDS: ASCORBIC ACID 500 MG TAB PO SCH (08:27)
[2021-02-23] MEDS: MULTIVITAMINS, THERA 1 EACH TAB PO SCH (08:28)
[2021-02-23] MEDS: ZINC SULFATE 220 MG CAP PO SCH (08:28)
[2021-02-23] MEDS: ENOXAPARIN 40 MG/0.4 ML SYRINGE SQ SCH (08:28)
[2021-02-23 08:57] LABS: Basophils # (A) 0.1 k/uL (0-0.2); Basophils % (A) 0 %; Eosinophils # (A) 0.1 k/uL (0-0.7); Eosinophils % (A) 0 %; HCT 41.8 % (39.0-53.0); HGB 14.4 gm/dL (13.0-17.5); Lymphocytes # (A) 0.7 k/uL (1.0-4.8); Lymphocytes % (A) 3 %; MCH 32.1 pg (25.0-35.0); MCHC 34.3 g/dL (31.0-37.0); MCV 93.5 fL (80.0-100.0); Mean Platelet Volume 8.3; Monocytes # (A) 1.5 k/uL (0-1.0); Monocytes % (A) 7 %; Neutrophils # (A) 19.6 k/uL (1.3-7.7); Neutrophils % (A) 89 %; Platelet Count 273 k/uL (150-450); RBC 4.47 m/uL (4.30-5.90); RDW 14.2 % (11.5-15.5); WBC 22.1 k/uL (3.8-10.6)
[2021-02-23 09:21] LABS: Potassium 4.3 mmol/L (3.5-5.1)
[2021-02-23 09:25] LABS: African American GFR (CKD) >90 (>60 ml/min/1.73 sqM); Anion Gap 9 mmol/L; Blood Urea Nitrogen 30 mg/dL (9-20); C Reactive Protein 0.7 mg/dL (<1.0); Calcium 8.8 mg/dL (8.4-10.2); Carbon Dioxide 20 mmol/L (22-30); Chloride 102 mmol/L (98-107); Glucose 140 mg/dL (74-99); LDH 1023 U/L (313-618); Magnesium 2.2 mg/dL (1.6-2.3); Non-African American GFR(CKD) >90 (>60 ml/min/1.73 sqM); Sodium 131 mmol/L (137-145)
--- NOTE | 2021-02-23 16:03 | P.PN ---
Subjective Progress Note Date: 02/23/21 Principal diagnosis: Coronavirus associated pneumonia. 02/12/2021, patient remains in the ICU, remains on high flow oxygen, he is on airvo at 90% and 60 L flow, patient is basically about the same as yesterday, not much of a change, he does seem to be comfortable, his O2 saturation remains marginal in the low 90s. His CT angiogram of the chest was negative for pulmonary embolism. WBC count today is 14.2 hemoglobin 14.1. D-dimer was 10.98 yesterday. Again he had a negative CT angiogram of the chest. And negative Doppler of the legs. Electrolytes are normal renal profile is normal. Patient remains on the COVID-19 cocktail, he is also on Lovenox 40 mg subcu twice a day, he is still on baricitinib and on Decadron at 6 mg by mouth twice a day. He is on GI prophylaxis. Not quite ready to be transferred out of the ICU, but if he remains about the same, may transfer the patient out to the floor in the next 24 hours. 02/13/2021, patient remains in the ICU, remains on high oxygen, no change since yesterday, patient is feeling clinically a bit better, breathing easier, but his overall status is basically the same. O2 saturation remains very marginal in the low 90s. Patient is afebrile. He is hemodynamically stable. WBC count of 17.9 hemoglobin is 13.9, basic metabolic profile is normal renal profile is normal. CT angiogram showed no evidence of thrombus embolic disease. Patient remains on Lovenox 40 mg subcu twice a day 4 elevated d-dimer. Remains on baricitinib, and on the rest of the COVID-19 cocktail including Decadron 6 mg by mouth twice a day. Reevaluated today on 02/14/2021, patient is basically the same compared to yesterday and compared to the last few days. Remains on high flow oxygen, patient is on 90%, 60 L flow, and he is also on non-rebreather mask. O2 saturations remained marginal, patient is feeling better clinically. 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 WBC count is the same as yesterday 17.6. CBC is relatively normal. Renal profile is normal. Liver enzymes are a bit elevated. Last LDH few days ago was 1395 and C-reactive protein 1.4. The patient is seen today 02/15/2021 in follow-up in the intensive care unit. He is currently still requiring AirVo high flow oxygen at 60 L and 90% FiO2 with a nonrebreather mask. He is doing about the same compared to yesterday. No worsening shortness of breath. His appetite remains good. Chest x-ray continues to show patchy basilar infiltrates. Unchanged. We count 21.0. Hemoglobin 14.7. Platelets 656. Lymphocytes 0.63. Sodium 131. Potassium 4.8. Creatinine 0.88. AST 86. ALT 229. He is continued on Baricitinib, Decadron, Lovenox vitamin supplements. No IV fluids currently. Reevaluated today on 02/16/2021, patient remains on high flow oxygen, he is presently on airvo at 85% and 60 L flow. O2 saturation is in the low 90s. Clinically the patient is feeling a bit better, breathing a bit easier, nonetheless he continues to remain on relatively high flow oxygen. Patient is noted to have leukocytosis today with WBC of 26.8 hemoglobin is 15.1. He is afebrile. And I am a bit concerned about his white count steadily going up. Chest x-ray 2 days ago continues to show bilateral infiltrates. I will recommend checking a broken stone in level on this patient, and if elevated may start him on antibiotics and discontinue baricitinib Reevaluated today on 02/17/21, patient remains on high flow oxygen. He is actually on 90% FiO2, 40 L flow, and his O2 saturation is ranging between 90-93% at best. Clinically however the patient tells me that his feeling better, breathing easier, he has a good appetite, and he is sleeping well. Pro- calcitonin level came back 0.08, hence the possibility of underlying bacterial pneumonia is very unlikely. Chest x-ray showed relatively no change in his bilateral infiltrates. Basically about the same. WBC count remains elevated at 26.3 hemoglobin 14.2 electrolytes and renal profile are normal Progress note dated 02/18/2021. 56-year-old male, again seen in room 367. The patient has been here in the hospital for 14 days. The patient remains on AIRVO, at 60 L/m and an FiO2 of 90%, as well as a nonrebreather mask. The patient is not receiving any IV fluids. He sitting up in the chair. Actually looks pretty comfortable. He feels okay. There is no use of accessory muscles, or conversational dyspnea. White count 31.2, hemoglobin hematocrit normal. Platelet count 601,000. Sodium 131, potassium 4.7, chlorides 97, CO2 25, anion gap 9, BUN 32, creatinine 0.83. AST 198 and ALT is 875. Chest x-rays reviewed from yesterday shows stable bilateral left greater than right, airspace opacities. Progress note dated 02/19/2021. 56-year-old male, again seen in room 367. Currently, the patient remains on this AIRVO at 60 L/m with an FiO2 of 90%. His saturations are 91%. He sitting at the bedside. He feels may be slightly better than he did yesterday. He is not receiving any IV fluids. No new labs today. Labs from yesterday were ready reviewed. No new chest x-ray to report. The patient remains on vitamin C, vitamin D3, Decadron, Lovenox, and zinc. Progress note dated 02/20/2021. 56-year-old male, again seen in room 367. The patient remains on AIRVO, at 60 L/m, and with an FiO2 of about 73%. Yesterday, he had an FiO2 of 90%. Clinically, he feels reasonable. He is very short of breath on any exertion. The patient is not receiving any IV fluids. He is laying in bed. For the last couple of days, he was sitting up in a chair. White count 23.3, hemoglobin 14.8, hematocrit 43.7, platelet count 405,000. D-dimer 0.75. Sodium 129, potassium 5.3, chlorides 99, CO2 23, anion gap 7, BUN 33, creatinine 0.84. Pro- calcitonin level was 0.19. ALT 643. AST is 110. LDH is 1114. A chest x-ray today, is unchanged, and shows changes of COPD, as well as patchy bilateral mostly lower lobe infiltrates. Progress note dated 02/19/2021. 56-year-old male, again seen in room 367. The patient is currently on AIRVO, with settings of 60 L/m with an FiO2 of 70%. He's not getting any IV fluids. The patient is feeling much better he says. He states that his breathing is improved, and he feels much less short of breath. He sitting up in the chair next to the bed. There are no labs from today. Labs from yesterday were reviewed. Chest x-ray from yesterday shows diffuse bilateral patchy infiltrates, which is essentially unchanged. Progress note dated 02/22/2021. 56-year-old male, again seen in room 367. Currently, he is on AIRVO, with settings of 40 L/m and 50%. That is an improvement. He's not receiving any IV fluids. His saturations are hovering in the high 80s. Clinically, he states that he's feeling much better. His breathing is much improved. Today, he sitting at the site of the bed. He denies any chest pain or chest discomfort. His no fever or chills. He is shortness of breath on exertion, but that is improved. Sodium 134, potassium 5, chlorides 104, CO2 23, anion gap 7, BUN 40, and creatinine 1.24. Progress note dated 02/23/2021. 56-year-old male, again seen in room 367. Currently, he is on AIRVO, at 40 L/m, and 50% FiO2. Also, today, he is wearing a nonrebreather mass. He states that he's feeling better. It does not appear that he uses a nonrebreather mask although time. White count 22.1, hemoglobin 14.4, hematocrit 41.8, and platelet count was 273,000. D-dimer is 0.7. Sodium 131, potassium 4.3, chlorides 102, CO2 20, anion gap 9, BUN 30, creatinine 0.75. LDH is 1023. Pro-calcitonin level was 0.14. Chest x-ray shows diffuse bilateral opacities, which are really not significantly changed compared to a prior x-ray. Objective - Vital Signs Vital signs: Vital Signs Temp 97.8 F 02/23/21 15:55 Pulse 112 H 02/23/21 15:55 Resp 23 02/23/21 15:55 BP 142/81 02/23/21 15:55 Pulse Ox 89 L 02/23/21 15:55 Intake & Output 02/22/21 02/23/21 02/23/21 18:59 06:59 18:59 Intake Total 240 240 Output Total 1175 975 220 Balance -935 -975 20 Weight 80.4 kg Intake: Oral 240 240 Output: Urine 1175 975 220 Other: Voiding Method Urinal Urinal Urinal # Voids 1 # Bowel Movements 1 - Exam No acute distress, oriented 3. Currently on AIRVO and a nonrebreather mask. Saturations are 89%. HEENT examination is grossly unremarkable. Neck supple. Full range of motion. No adenopathy thyromegaly or neck vein distention. Cardiovascular examination reveals regular rhythm rate. S1-S2 normal. No S3 or S4. No discernible murmur noted. Heart rate 112 bpm. Heart sounds are distant. Lungs reveal mild to moderate bilateral expiratory rhonchi. No wheezes. Diffuse bibasilar crackles. Breath sounds equal bilaterally. Saturations are 89 %. Abdomen soft bowel sounds are heard. No masses or tenderness. Extremities are intact. No cyanosis clubbing or edema. Skin is without rash or lesion. Neurologic examination is brief but nonfocal. - Labs CBC & Chem 7: 02/23/21 08:21 02/23/21 08:21 Labs: Abnormal Lab Results - Last 24 Hours (Table) 02/23/21 02/23/21 02/23/21 Range/Units 08:21 08:21 08:21 WBC 22.1 H (3.8-10.6) k/uL Neutrophils # 19.6 H (1.3-7.7) k/uL Lymphocytes # 0.7 L (1.0-4.8) k/uL Monocytes # 1.5 H (0-1.0) k/uL D-Dimer 0.70 H (<0.60) mg/L FEU Sodium (137-145) mmol/L Carbon Dioxide (22-30) mmol/L BUN (9-20) mg/dL Glucose (74-99) mg/dL Lactate Dehydrogenase (313-618) U/L Procalcitonin 0.14 H (0.02-0.09) ng/mL 02/23/21 Range/Units 08:21 WBC (3.8-10.6) k/uL Neutrophils # (1.3-7.7) k/uL Lymphocytes # (1.0-4.8) k/uL Monocytes # (0-1.0) k/uL D-Dimer (<0.60) mg/L FEU Sodium 131 L (137-145) mmol/L Carbon Dioxide 20 L (22-30) mmol/L BUN 30 H (9-20) mg/dL Glucose 140 H (74-99) mg/dL Lactate Dehydrogenase 1023 H (313-618) U/L Procalcitonin (0.02-0.09) ng/mL Assessment and Plan Assessment: Acute hypoxemic respiratory failure secondary to coronavirus associated pneumonia, currently on AIRVO. Elevated inflammatory markers, secondary to coronavirus infection. Benign essential hypertension. Plan: Plan dated 02/18/2021. The patient will continue on oxygen therapy. Remains on Decadron and Lovenox. The patient continues on vitamin cocktail. The patient has completed his Baricitinib. We will continue to follow make recommendations where appropriate. Labs and x-rays are reviewed. Prognosis is very guarded. Though the patient's on significant supplemental oxygen, he looks relatively stable. Plan dated 02/19/2021. The patient continues on Decadron and Lovenox. He remains on AIRVO. The patient also remains on vitamin C, vitamin D3, and zinc. The patient has completed RAUL. We will continue to follow make recommendations where appropriate. A chest x-ray will be ordered for tomorrow. No additional recommendations are made. Prognosis is very guarded. Plan dated 02/20/2021. The patient remains on vitamin C, vitamin D3, and zinc. In addition, the patient remains on Decadron and Lovenox. The patient did complete his RAUL. Also, his oxygen requirements have come down from 90% yesterday to 75% today. Continue to follow and make recommendations where appropriate. Prognosis is guarded. I encouraged the patient to move about in bed. Plan dated 02/21/2021. The patient remains on vitamin C, vitamin D3, and zinc. The patient also is on Decadron and Lovenox. Labs and x-rays from yesterday are reviewed. The patient did complete his RAUL. Clinically, the patient looks about the same but he feels much improved. The patient will continue on AIRVO for the time being. We will continue to follow and make recommendations where appropriate. I asked him to deep breathe, cough, and clear secretions, and also use the incentive spi rometer. Prognosis is guarded. Plan dated 02/22/2021. The patient remains on vitamin C, vitamin D3, and zinc. The patient is also on Decadron and Lovenox. The patient did complete his RAUL. Currently, the patient's on AIRVO, at 40 L/m with an FiO2 of 50%. He is not receiving any IV fluids. The patient saturations are in the high 80s. We will continue to follow make recommendations where appropriate. Prognosis is guarded. The patient does have a positive attitude. He's encouraged to deep breathe, cough, and clear secretions. We also encouraged him to use his incentive spirometer, every hour while awake. Plan dated 02/23/2021. The patient remains on the AIRVO, at 40 L/m and an FiO2 of 50%. In addition, the patient is wearing a nonrebreather mask. Labs are reviewed. Chest x-ray is unchanged. The patient remains on vitamin C, vitamin D3, and zinc. In addition, he is on Decadron and Lovenox. We will continue to follow make recommendations where appropriate. The patient's Decadron is going to be made once a day, and Lovenox also once a day. Prognosis is guarded. Time with Patient: Less than 30
--- NOTE | 2021-02-23 16:13 | P.PN ---
Subjective This is a pleasant 56 years old male with no significant past medical history presents with respiratory symptoms found to have bilateral Pipe pneumonia and hypoxia. Patient is been monitored closely and followed by the pulmonary service [place]. Currently he is on 60 L oxygen via high flow nasal cannula with FiO2 of 68%. Slightly tachypneic and got short of breath when he talks. Labs reviewed WBC 23k, d-dimer 0.75, sodium slightly low 129, potassium slightly high at 5.3, liver enzymes slightly elevated, lactate dehydrogenase is elevated 1114. Poorcalcitonin is 0.19, was 0.08. Chest x-ray showing COPD with patchy bilateral Covid pneumonia. Patient currently kept on dexamethasone 6 mg daily, vitamin C, vitamin D and zinc. Also he is on Pepcid and Lovenox. 02/22/2021 Patient reports some improvement in his shortness of breath. Today following a T-max trying to wean him down with lowering oxygen requirement 60 down to 40 L per minute with FiO2 68 down to 50% this morning. Patient is to cardiac and more tachypneic during these attempts for now, we will keep monitoring. However he does not report any worsening dyspnea. Sodium improved to 134, potassium down to 5.0. He remains on dexamethasone and multiple vitamins. Also he is on Lovenox and Pepcid We will keep monitoring 02/23/2021 Patient today show significant improvement with drop of oxygen requirement down to 15 L/m, patient reports more easier breathing. No much coughing. WBC 20 2K, d-dimer is stable at 0.7. Potassium normal at 4.3. Lactate dehydrog enase still elevated but stable at 1023. Patient remains on the same treatment of dexamethasone, multiple vitamins, Lovenox and Pepcid Objective - Vital Signs Vital signs: Vital Signs Temp 97.8 F 02/23/21 12:15 Pulse 108 H 02/23/21 12:15 Resp 17 02/23/21 12:15 BP 159/102 02/23/21 12:15 Pulse Ox 91 L 02/23/21 11:32 Intake & Output 02/22/21 02/23/21 02/23/21 18:59 06:59 18:59 Intake Total 240 240 Output Total 1175 975 Balance -935 -975 240 Weight 80.4 kg Intake: Oral 240 240 Output: Urine 1175 975 Other: Voiding Method Urinal Urinal Urinal # Voids 1 # Bowel Movements 1 - Exam GENERAL: The patient is alert and oriented x3, not in any acute distress. Well developed, well nourished. HEENT: Pupils are round and equally reacting to light. EOMI. No scleral icterus. No conjunctival pallor. Normocephalic, atraumatic. No pharyngeal erythema. No thyromegaly. CARDIOVASCULAR: S1 and S2 present. No murmurs, rubs, or gallops. -PULMONARY: Chest is clear to auscultation, no wheezing or crackles. Bilateral crepitation, tachypnea ABDOMEN: Soft, nontender, nondistended, normoactive bowel sounds. No palpable organomegaly. MUSCULOSKELETAL: No joint swelling or deformity. EXTREMITIES: No cyanosis, clubbing, or pedal edema. NEUROLOGICAL: Gross neurological examination did not reveal any focal deficits. SKIN: No rashes. no petechiae. - Labs CBC & Chem 7: 02/23/21 08:21 02/23/21 08:21 Labs: Abnormal Lab Results - Last 24 Hours (Table) 02/23/21 02/23/21 02/23/21 Range/Units 08:21 08:21 08:21 WBC 22.1 H (3.8-10.6) k/uL Neutrophils # 19.6 H (1.3-7.7) k/uL Lymphocytes # 0.7 L (1.0-4.8) k/uL Monocytes # 1.5 H (0-1.0) k/uL D-Dimer 0.70 H (<0.60) mg/L FEU Sodium (137-145) mmol/L Carbon Dioxide (22-30) mmol/L BUN (9-20) mg/dL Glucose (74-99) mg/dL Lactate Dehydrogenase (313-618) U/L Procalcitonin 0.14 H (0.02-0.09) ng/mL 02/23/21 Range/Units 08:21 WBC (3.8-10.6) k/uL Neutrophils # (1.3-7.7) k/uL Lymphocytes # (1.0-4.8) k/uL Monocytes # (0-1.0) k/uL D-Dimer (<0.60) mg/L FEU Sodium 131 L (137-145) mmol/L Carbon Dioxide 20 L (22-30) mmol/L BUN 30 H (9-20) mg/dL Glucose 140 H (74-99) mg/dL Lactate Dehydrogenase 1023 H (313-618) U/L Procalcitonin (0.02-0.09) ng/mL Assessment and Plan Assessment: Bilateral Covid pneumonia Acute hypoxic respiratory failure Increased inflammatory markers Plan: This is a pleasant 56 race old male who presents with covid pneumonia Continue with dexamethasone Continue with Oxygen as needed Continue with vitamin C, vitamin D and zinc Pulmonary consult Labs and medication were reviewed.. Continue same treatment. Continue with symptomatic treatment. Resume home medication. Monitor lytes and vitals. DVT and GI prophylaxis. Further recommendationsas per clinical course of the patient DVT prophylaxis: Subcutaneous Lovenox GI Prophylaxis: Pepcid Prognosis is guarded
[2021-02-24] MEDS: PANTOPRAZOLE 40 MG TABLET PO SCH ×2 (06:45→15:22)
[2021-02-24] MEDS: ENOXAPARIN 40 MG/0.4 ML SYRINGE SQ SCH (09:38)
[2021-02-24] MEDS: dexAMETHasone 2 MG TAB PO SCH (09:38)
[2021-02-24] MEDS: ZINC SULFATE 220 MG CAP PO SCH (09:39)
[2021-02-24] MEDS: MULTIVITAMINS, THERA 1 EACH TAB PO SCH (09:39)
[2021-02-24] MEDS: CHOLECALCIFEROL 25 MCG (1000 IU) TABLET PO SCH (09:39)
[2021-02-24] MEDS: ASCORBIC ACID 500 MG TAB PO SCH (09:39)
[2021-02-24 16:45] LABS: Glucose,Whole Blood 124 mg/dL (75-99)
--- NOTE | 2021-02-24 16:57 | P.PN ---
Subjective Progress Note Date: 02/24/21 Principal diagnosis: Coronavirus associated pneumonia. 02/12/2021, patient remains in the ICU, remains on high flow oxygen, he is on airvo at 90% and 60 L flow, patient is basically about the same as yesterday, not much of a change, he does seem to be comfortable, his O2 saturation remains marginal in the low 90s. His CT angiogram of the chest was negative for pulmonary embolism. WBC count today is 14.2 hemoglobin 14.1. D-dimer was 10.98 yesterday. Again he had a negative CT angiogram of the chest. And negative Doppler of the legs. Electrolytes are normal renal profile is normal. Patient remains on the COVID-19 cocktail, he is also on Lovenox 40 mg subcu twice a day, he is still on baricitinib and on Decadron at 6 mg by mouth twice a day. He is on GI prophylaxis. Not quite ready to be transferred out of the ICU, but if he remains about the same, may transfer the patient out to the floor in the next 24 hours. 02/13/2021, patient remains in the ICU, remains on high oxygen, no change since yesterday, patient is feeling clinically a bit better, breathing easier, but his overall status is basically the same. O2 saturation remains very marginal in the low 90s. Patient is afebrile. He is hemodynamically stable. WBC count of 17.9 hemoglobin is 13.9, basic metabolic profile is normal renal profile is normal. CT angiogram showed no evidence of thrombus embolic disease. Patient remains on Lovenox 40 mg subcu twice a day 4 elevated d-dimer. Remains on baricitinib, and on the rest of the COVID-19 cocktail including Decadron 6 mg by mouth twice a day. Reevaluated today on 02/14/2021, patient is basically the same compared to yesterday and compared to the last few days. Remains on high flow oxygen, patient is on 90%, 60 L flow, and he is also on non-rebreather mask. O2 saturations remained marginal, patient is feeling better clinically. 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 WBC count is the same as yesterday 17.6. CBC is relatively normal. Renal profile is normal. Liver enzymes are a bit elevated. Last LDH few days ago was 1395 and C-reactive protein 1.4. The patient is seen today 02/15/2021 in follow-up in the intensive care unit. He is currently still requiring AirVo high flow oxygen at 60 L and 90% FiO2 with a nonrebreather mask. He is doing about the same compared to yesterday. No worsening shortness of breath. His appetite remains good. Chest x-ray continues to show patchy basilar infiltrates. Unchanged. We count 21.0. Hemoglobin 14.7. Platelets 656. Lymphocytes 0.63. Sodium 131. Potassium 4.8. Creatinine 0.88. AST 86. ALT 229. He is continued on Baricitinib, Decadron, Lovenox vitamin supplements. No IV fluids currently. Reevaluated today on 02/16/2021, patient remains on high flow oxygen, he is presently on airvo at 85% and 60 L flow. O2 saturation is in the low 90s. Clinically the patient is feeling a bit better, breathing a bit easier, nonetheless he continues to remain on relatively high flow oxygen. Patient is noted to have leukocytosis today with WBC of 26.8 hemoglobin is 15.1. He is afebrile. And I am a bit concerned about his white count steadily going up. Chest x-ray 2 days ago continues to show bilateral infiltrates. I will recommend checking a broken stone in level on this patient, and if elevated may start him on antibiotics and discontinue baricitinib Reevaluated today on 02/17/21, patient remains on high flow oxygen. He is actually on 90% FiO2, 40 L flow, and his O2 saturation is ranging between 90-93% at best. Clinically however the patient tells me that his feeling better, breathing easier, he has a good appetite, and he is sleeping well. Pro- calcitonin level came back 0.08, hence the possibility of underlying bacterial pneumonia is very unlikely. Chest x-ray showed relatively no change in his bilateral infiltrates. Basically about the same. WBC count remains elevated at 26.3 hemoglobin 14.2 electrolytes and renal profile are normal Progress note dated 02/18/2021. 56-year-old male, again seen in room 367. The patient has been here in the hospital for 14 days. The patient remains on AIRVO, at 60 L/m and an FiO2 of 90%, as well as a nonrebreather mask. The patient is not receiving any IV fluids. He sitting up in the chair. Actually looks pretty comfortable. He feels okay. There is no use of accessory muscles, or conversational dyspnea. White count 31.2, hemoglobin hematocrit normal. Platelet count 601,000. Sodium 131, potassium 4.7, chlorides 97, CO2 25, anion gap 9, BUN 32, creatinine 0.83. AST 198 and ALT is 875. Chest x-rays reviewed from yesterday shows stable bilateral left greater than right, airspace opacities. Progress note dated 02/19/2021. 56-year-old male, again seen in room 367. Currently, the patient remains on this AIRVO at 60 L/m with an FiO2 of 90%. His saturations are 91%. He sitting at the bedside. He feels may be slightly better than he did yesterday. He is not receiving any IV fluids. No new labs today. Labs from yesterday were ready reviewed. No new chest x-ray to report. The patient remains on vitamin C, vitamin D3, Decadron, Lovenox, and zinc. Progress note dated 02/20/2021. 56-year-old male, again seen in room 367. The patient remains on AIRVO, at 60 L/m, and with an FiO2 of about 73%. Yesterday, he had an FiO2 of 90%. Clinically, he feels reasonable. He is very short of breath on any exertion. The patient is not receiving any IV fluids. He is laying in bed. For the last couple of days, he was sitting up in a chair. White count 23.3, hemoglobin 14.8, hematocrit 43.7, platelet count 405,000. D-dimer 0.75. Sodium 129, potassium 5.3, chlorides 99, CO2 23, anion gap 7, BUN 33, creatinine 0.84. Pro- calcitonin level was 0.19. ALT 643. AST is 110. LDH is 1114. A chest x-ray today, is unchanged, and shows changes of COPD, as well as patchy bilateral mostly lower lobe infiltrates. Progress note dated 02/19/2021. 56-year-old male, again seen in room 367. The patient is currently on AIRVO, with settings of 60 L/m with an FiO2 of 70%. He's not getting any IV fluids. The patient is feeling much better he says. He states that his breathing is improved, and he feels much less short of breath. He sitting up in the chair next to the bed. There are no labs from today. Labs from yesterday were reviewed. Chest x-ray from yesterday shows diffuse bilateral patchy infiltrates, which is essentially unchanged. Progress note dated 02/22/2021. 56-year-old male, again seen in room 367. Currently, he is on AIRVO, with settings of 40 L/m and 50%. That is an improvement. He's not receiving any IV fluids. His saturations are hovering in the high 80s. Clinically, he states that he's feeling much better. His breathing is much improved. Today, he sitting at the site of the bed. He denies any chest pain or chest discomfort. His no fever or chills. He is shortness of breath on exertion, but that is improved. Sodium 134, potassium 5, chlorides 104, CO2 23, anion gap 7, BUN 40, and creatinine 1.24. Progress note dated 02/23/2021. 56-year-old male, again seen in room 367. Currently, he is on AIRVO, at 40 L/m, and 50% FiO2. Also, today, he is wearing a nonrebreather mass. He states that he's feeling better. It does not appear that he uses a nonrebreather mask although time. White count 22.1, hemoglobin 14.4, hematocrit 41.8, and platelet count was 273,000. D-dimer is 0.7. Sodium 131, potassium 4.3, chlorides 102, CO2 20, anion gap 9, BUN 30, creatinine 0.75. LDH is 1023. Pro-calcitonin level was 0.14. Chest x-ray shows diffuse bilateral opacities, which are really not significantly changed compared to a prior x-ray. Progress note dated 02/24/2021. 56-year-old male, again seen in room 367 he remains on AIRVO at 40 L/m and an FiO2 of 50%. He is also wearing a nonrebreather mask, from time to time. He does state that he's feeling better and his breathing is improved. He does not appear to be in any respiratory distress, and there is no conversational dyspnea or use of accessory muscles. He sitting in a chair next to his bed. No new laboratory data today. The chest x-ray from yesterday was reviewed. Objective - Vital Signs Vital signs: Vital Signs Temp 97.8 F 02/24/21 15:35 Pulse 119 H 02/24/21 15:35 Resp 16 02/24/21 15:35 BP 127/86 02/24/21 15:35 Pulse Ox 95 02/24/21 15:35 Intake & Output 02/23/21 02/24/21 02/24/21 18:59 06:59 18:59 Intake Total 1680 1500 598 Output Total 820 800 225 Balance 860 700 373 Weight 80.4 kg Intake: Oral 1680 1500 598 Output: Urine 820 800 225 Other: Voiding Method Urinal Urinal Urinal # Voids 2 - Exam No acute distress, oriented 3. Currently on AIRVO and a nonrebreather mask. Saturations are 93%. HEENT examination is grossly unremarkable. Neck supple. Full range of motion. No adenopathy thyromegaly or neck vein distention. Cardiovascular examination reveals regular rhythm rate. S1-S2 normal. No S3 or S4. No discernible murmur noted. Heart rate 119 bpm. Heart sounds are distant. Lungs reveal mild to moderate bilateral expiratory rhonchi. No wheezes. Diffuse bibasilar crackles. Breath sounds equal bilaterally. Saturations are 9 3%. Abdomen soft bowel sounds are heard. No masses or tenderness. Extremities are intact. No cyanosis clubbing or edema. Skin is without rash or lesion. Neurologic examination is brief but nonfocal. - Labs CBC & Chem 7: 02/23/21 08:21 02/23/21 08:21 Labs: Abnormal Lab Results - Last 24 Hours (Table) 02/24/21 Range/Units 16:44 POC Glucose (mg/dL) 124 H (75-99) mg/dL Assessment and Plan Assessment: Acute hypoxemic respiratory failure secondary to coronavirus associated pneumonia, currently on AIRVO, and a nonrebreather mask. Elevated inflammatory markers, secondary to coronavirus infection. Benign essential hypertension. Plan: Plan dated 02/18/2021. The patient will continue on oxygen therapy. Remains on Decadron and Lovenox. The patient continues on vitamin cocktail. The patient has completed his Baricitinib. We will continue to follow make recommendations where appropriate. Labs and x-rays are reviewed. Prognosis is very guarded. Though the patient's on significant supplemental oxygen, he looks relatively stable. Plan dated 02/19/2021. The patient continues on Decadron and Lovenox. He remains on AIRVO. The patient also remains on vitamin C, vitamin D3, and zinc. The patient has completed RAUL. We will continue to follow make recommendations where appropriate. A chest x-ray will be ordered for tomorrow. No additional recommendations are made. Prognosis is very guarded. Plan dated 02/20/2021. The patient remains on vitamin C, vitamin D3, and zinc. In addition, the patient remains on Decadron and Lovenox. The patient did complete his RAUL. Also, his oxygen requirements have come down from 90% yesterday to 75% today. Continue to follow and make recommendations where appropriate. Prognosis is guarded. I encouraged the patient to move about in bed. Plan dated 02/21/2021. The patient remains on vitamin C, vitamin D3, and zinc. The patient also is on Decadron and Lovenox. Labs and x-rays from yesterday are reviewed. The patient did complete his RAUL. Clinically, the patient looks about the same but he feels much improved. The patient will continue on AIRVO for the time being. We will continue to follow and make recommendations where appropriate. I asked him to deep breathe, cough, and clear secretions, and also use the incentive sp irometer. Prognosis is guarded. Plan dated 02/22/2021. The patient remains on vitamin C, vitamin D3, and zinc. The patient is also on Decadron and Lovenox. The patient did complete his RAUL. Currently, the patient's on AIRVO, at 40 L/m with an FiO2 of 50%. He is not receiving any IV fluids. The patient saturations are in the high 80s. We will continue to follow make recommendations where appropriate. Prognosis is guarded. The patient does have a positive attitude. He's encouraged to deep breathe, cough, and clear secretions. We also encouraged him to use his incentive spirometer, every hour while awake. Plan dated 02/23/2021. The patient remains on the AIRVO, at 40 L/m and an FiO2 of 50%. In addition, the patient is wearing a nonrebreather mask. Labs are reviewed. Chest x-ray is unchanged. The patient remains on vitamin C, vitamin D3, and zinc. In addition, he is on Decadron and Lovenox. We will continue to follow make recommendations where appropriate. The patient's Decadron is going to be made once a day, and Lovenox also once a day. Prognosis is guarded. Plan dated 02/24/2021. The patient remains on AIRVO, and a nonrebreather mask. Labs x-rays a medica tions are all reviewed. Chest x-ray is unchanged. The patient remains on vitamin C, vitamin D3, and zinc. He also remains on Decadron and Lovenox. He did complete his course of RAUL. We will continue to follow make recommendations where appropriate. Prognosis is guarded. His oxygenation remai ns tenuous. Time with Patient: Less than 30
--- NOTE | 2021-02-24 17:43 | P.PN ---
Subjective This is a pleasant 56 years old male with no significant past medical history presents with respiratory symptoms found to have bilateral Pipe pneumonia and hypoxia. Patient is been monitored closely and followed by the pulmonary service since [place]. Currently he is on 60 L oxygen via high flow nasal cannula with FiO2 of 68%. Slightly tachypneic and got short of breath when he talks. Labs reviewed WBC 23k, d-dimer 0.75, sodium slightly low 129, potassium slightly high at 5.3, liver enzymes slightly elevated, lactate dehydrogenase is elevated 1114. Poorcalcitonin is 0.19, was 0.08. Chest x-ray showing COPD with patchy bilateral Covid pneumonia. Patient currently kept on dexamethasone 6 mg daily, vitamin C, vitamin D and zinc. Also he is on Pepcid and Lovenox. 02/22/2021 Patient reports some improvement in his shortness of breath. Today following a T-max trying to wean him down with lowering oxygen requirement 60 down to 40 L per minute with FiO2 68 down to 50% this morning. Patient is to cardiac and more tachypneic during these attempts for now, we will keep monitoring. However he does not report any worsening dyspnea. Sodium improved to 134, potassium down to 5.0. He remains on dexamethasone and multiple vitamins. Also he is on Lovenox and Pepcid We will keep monitoring 02/23/2021 Patient today show significant improvement with drop of oxygen requirement down to 15 L/m, patient reports more easier breathing. No much coughing. WBC 20 2K, d-dimer is stable at 0.7. Potassium normal at 4.3. Lactate dehydrog enase still elevated but stable at 1023. Patient remains on the same treatment of dexamethasone, multiple vitamins, Lovenox and Pepcid 02/24/2021 Patient awake and alert, he feels generally weak, significantly dyspneic while talking. Looks more tired and lethargic. Patient is hypoxic requiring 15 L/m nonrebreather and interval of 40 L at 50%, he is tachypneic and tachycardic. Heart rate around 119. Chest x-ray: Chronic parenchymal changes with left mid lung and bibasilar opacities consistent with known covid 19 infection. No significant change. Patient remains on vitamin C, D and zinc, dexamethasone, Lovenox and Pepcid Objective - Vital Signs Vital signs: Vital Signs Temp 98.3 F 02/24/21 12:45 Pulse 115 H 02/24/21 12:45 Resp 24 02/24/21 12:45 BP 127/71 02/24/21 12:45 Pulse Ox 89 L 02/24/21 11:59 Intake & Output 02/23/21 02/24/21 02/24/21 18:59 06:59 18:59 Intake Total 1680 1500 480 Output Total 820 800 225 Balance 860 700 255 Weight 80.4 kg Intake: Oral 1680 1500 480 Output: Urine 820 800 225 Other: Voiding Method Urinal Urinal Urinal # Voids 2 - Exam GENERAL: The patient is alert and oriented x3, not in any acute distress. Well developed, well nourished. HEENT: Pupils are round and equally reacting to light. EOMI. No scleral icterus. No conjunctival pallor. Normocephalic, atraumatic. No pharyngeal erythema. No thyromegaly. CARDIOVASCULAR: S1 and S2 present. No murmurs, rubs, or gallops. -PULMONARY: Chest is clear to auscultation, no wheezing or crackles. Bilateral crepitation, tachypnea ABDOMEN: Soft, nontender, nondistended, normoactive bowel sounds. No palpable organomegaly. MUSCULOSKELETAL: No joint swelling or deformity. EXTREMITIES: No cyanosis, clubbing, or pedal edema. NEUROLOGICAL: Gross neurological examination did not reveal any focal deficits. SKIN: No rashes. no petechiae. - Labs CBC & Chem 7: 02/23/21 08:21 02/23/21 08:21 Assessment and Plan Assessment: Bilateral Covid pneumonia Acute hypoxic respiratory failure Increased inflammatory markers Tachycardia and tachypnea secondary to above generalized weakness Plan: This is a pleasant 56 race old male who presents with covid pneumonia Continue with dexamethasone Continue with Oxygen, high dose Continue with vitamin C, vitamin D and zinc Pulmonary consult Labs and medication were reviewed.. Continue same treatment. Continue with symptomatic treatment. Resume home medication. Monitor lytes and vitals. DVT and GI prophylaxis. Further recommendations as per clinical course of the patient DVT prophylaxis: Subcutaneous Lovenox GI Prophylaxis: Pepcid Prognosis is guarded
[2021-02-25] MEDS: PANTOPRAZOLE 40 MG TABLET PO SCH ×2 (05:49→18:41)
[2021-02-25 06:43] LABS: Basophils % (A) 0 %; Eosinophils # (A) 0.2 k/uL (0-0.7); Eosinophils % (A) 1 %; HGB 13.9 gm/dL (13.0-17.5); Lymphocytes # (A) 0.9 k/uL (1.0-4.8); Lymphocytes % (A) 5 %; MCH 31.9 pg (25.0-35.0); MCHC 33.9 g/dL (31.0-37.0); MCV 93.9 fL (80.0-100.0); Mean Platelet Volume 8.3; Monocytes # (A) 1.4 k/uL (0-1.0); Monocytes % (A) 7 %; Neutrophils # (A) 17.5 k/uL (1.3-7.7); Neutrophils % (A) 87 %; Platelet Count 205 k/uL (150-450); RBC 4.36 m/uL (4.30-5.90); RDW 14.4 % (11.5-15.5); WBC 20.1 k/uL (3.8-10.6)
[2021-02-25 07:15] LABS: ALT 322 U/L (4-49); AST 68 U/L (17-59); African American GFR (CKD) >90 (>60 ml/min/1.73 sqM); Albumin 3.5 g/dL (3.5-5.0); Alkaline Phosphatase 81 U/L (38-126); Anion Gap 7 mmol/L; Blood Urea Nitrogen 32 mg/dL (9-20); C Reactive Protein 4.3 mg/dL (<1.0); Calcium 9.1 mg/dL (8.4-10.2); Carbon Dioxide 26 mmol/L (22-30); Chloride 101 mmol/L (98-107); Glucose 118 mg/dL (74-99); LDH 1039 U/L (313-618); Magnesium 2.5 mg/dL (1.6-2.3); Non-African American GFR(CKD) >90 (>60 ml/min/1.73 sqM); Potassium 4.5 mmol/L (3.5-5.1); Sodium 134 mmol/L (137-145); Total Bilirubin 0.6 mg/dL (0.2-1.3); Total Protein 6.1 g/dL (6.3-8.2)
[2021-02-25] MEDS: dexAMETHasone 2 MG TAB PO SCH (08:51)
[2021-02-25] MEDS: ENOXAPARIN 40 MG/0.4 ML SYRINGE SQ SCH (08:51)
[2021-02-25] MEDS: MULTIVITAMINS, THERA 1 EACH TAB PO SCH (08:51)
[2021-02-25] MEDS: ASCORBIC ACID 500 MG TAB PO SCH (08:51)
[2021-02-25] MEDS: ZINC SULFATE 220 MG CAP PO SCH (08:52)
[2021-02-25] MEDS: guaiFENesin 600 MG TABLET.ER PO SCH ×2 (08:52→20:55)
[2021-02-25] MEDS: CHOLECALCIFEROL 25 MCG (1000 IU) TABLET PO SCH (08:52)
[2021-02-25] MEDS ORDERED: FUROSEMIDE 10 MG/ML 4 ML VIAL IV SCH (09:00)
--- NOTE | 2021-02-25 09:55 | XR ---
EXAMINATION TYPE: XR chest 1V portable DATE OF EXAM: 02/25/2021 HISTORY: Shortness of breath. COMPARISON: 02/23/2021 TECHNIQUE: Single view of the chest is submitted. FINDINGS: Demonstrated are scattered senescent parenchymal change. Coarse basilar infiltrates unchanged from prior study. The heart is stable. Hilar and mediastinal structures are within normal limits. Degenerative changes are seen of the dorsal spine. IMPRESSION: 1. Coarse basilar infiltrates unchanged from prior study.
--- NOTE | 2021-02-25 11:05 | P.PN ---
Subjective Progress Note Date: 02/25/21 On 02/25/2021 this patient is being seen for a follow-up. The patient has been hospital for almost 3 weeks for Coumadin related pneumonia and hypoxic respiratory failure. The patient was treated with Decadron. The patient was also treated with Baricitinib per protocol. For now, the patient remains on airvo at 40 L with an FiO2 of 50%. He is also using the nonrebreather facemask occasionally. Condition is stable. The patient is still on Decadron 6 mg by mouth daily. The patient is currently on Lovenox 40 mg subcu for DVT prophylaxis. Respiratory treatment essentially supportive at this point in time. The most recent d-dimer was at 0.7, focused on level was at 0.1, LFTs were mildly elevated on 02/20/2021, most recent LDH level was 1023 and this was from 02/23/2021 also the most recent chest x-ray from 02/23/2071 showed chronic parenchymal changes with left midlung and bibasilar pulmonary opacities consistent with community related pneumonia. The patient is up on a chair and the patient is using his incentive spirometer without any major difficulties. He is labs from today White cell count is at 20.1, d-dimer is at 1.15, sodium is at 134, LDH level is 1039, LFTs are improving, and the pro-calcitonin level from yesterday was 0.14. Objective - Vital Signs Vital signs: Vital Signs Temp 98.2 F 02/25/21 04:17 Pulse 118 H 02/25/21 04:17 Resp 24 02/25/21 04:17 BP 134/72 02/25/21 04:17 Pulse Ox 92 L 02/25/21 09:49 Intake & Output 02/24/21 02/25/21 02/25/21 18:59 06:59 18:59 Intake Total 1798 598 Output Total 825 1000 Balance 973 -402 Weight 80.2 kg 80.2 kg Intake: Oral 1798 598 Output: Urine 825 1000 Uretheral (Cheek) 550 Other: Voiding Method Urinal Indwelling Catheter # Bowel Movements 1 - Exam Gen. appearance the patient is breathing comfortably Currently is on Airvo 40 L an FiO2 of 50%, Head exam was generally normal. There was no scleral icterus or corneal arcus. Mucous membranes were moist. Neck was supple and without jugular venous distension, thyromegaly, or carotid bruits. Carotids were easily palpable bilaterally. There was no adenopathy. Lungs sounds are diminished in the patient's crackles in the mid and lower lung tal[place]antes bilaterally Cardiac exam revealed the PMI to be normally situated and sized. The rhythm was regular and no extrasystoles were noted during several minutes of auscultation. The first and second heart sounds were normal and physiologic splitting of the second heart sound was noted. There were no murmurs, rubs, clicks, or gallops. Abdominal exam revealed normal bowel sounds. The abdomen was soft, non-tender, and without masses, organomegaly, or appreciable enlargement of the abdominal aorta. Examination of the extremities revealed easily palpable radial, femoral and pedal pulses. There was no cyanosis, clubbing or edema. Examination of the skin revealed no evidence of significant rashes, suspicious appearing nevi or other concerning lesions. Neurologically, the patient is awake and alert and the patient does not have any focal neurological deficit. Cranial nerves are essentially intact. - Labs CBC & Chem 7: 02/25/21 06:02 02/25/21 06:02 Labs: Abnormal Lab Results - Last 24 Hours (Table) 02/24/21 02/25/21 02/25/21 Range/Units 16:44 06:02 06:02 WBC 20.1 H (3.8-10.6) k/uL Neutrophils # 17.5 H (1.3-7.7) k/uL Lymphocytes # 0.9 L (1.0-4.8) k/uL Monocytes # 1.4 H (0-1.0) k/uL D-Dimer 1.15 H (<0.60) mg/L FEU Sodium (137-145) mmol/L BUN (9-20) mg/dL Glucose (74-99) mg/dL POC Glucose (mg/dL) 124 H (75-99) mg/dL Magnesium (1.6-2.3) mg/dL AST (17-59) U/L ALT (4-49) U/L Lactate Dehydrogenase (313-618) U/L C-Reactive Protein (<1.0) mg/dL Total Protein (6.3-8.2) g/dL 02/25/21 Range/Units 06:02 WBC (3.8-10.6) k/uL Neutrophils # (1.3-7.7) k/uL Lymphocytes # (1.0-4.8) k/uL Monocytes # (0-1.0) k/uL D-Dimer (<0.60) mg/L FEU Sodium 134 L (137-145) mmol/L BUN 32 H (9-20) mg/dL Glucose 118 H (74-99) mg/dL POC Glucose (mg/dL) (75-99) mg/dL Magnesium 2.5 H (1.6-2.3) mg/dL AST 68 H (17-59) U/L ALT 322 H (4-49) U/L Lactate Dehydrogenase 1039 H (313-618) U/L C-Reactive Protein 4.3 H (<1.0) mg/dL Total Protein 6.1 L (6.3-8.2) g/dL Assessment and Plan Plan: 1 acute COVID 19 related pneumonia with secondary respiratory failure. Currently on airvo 40 liters and 50% Fio2. Chest x-ray showing diffuse bilateral pulmonary infiltrates consistent with COVID 19 related pneumonia. No interval worsening in his chest x-ray findings. The inflammatory markers including the LDH and CRP are being monitored. D-dimer is also lower. The patient is still on Decadron 6 mg and the patient has completed Baricitinib. The patient remains on Lovenox for DVT prophylaxis. Chest x-ray findings are stable. Clinically the patient is stable. He is still desaturating with mobility and activity. Chest x-ray still showing bilateral lower lobe pulmonary infiltrates worse on the left. 2 shortness of breath secondary to above 3 acute hypoxic respiratory failure secondary to above 4 hypertension Plan Repeat chest x-ray from today showing stable bilateral pulmonary infiltrates/scarring in the lung bases. No acute changes Continue Airvo 40 L an FiO2 of 50% Continue Decadron 6 mg every 24 hours and gradually reduce dose as the patient has been on steroids for 3 weeks, the patient was on twice a day Decadron doses and he was not found to once a day yesterday and gradually going to wean him down over the course of this week. Completed Baricitinib per protocol Lovenox 40 mg subcu for DVT prophylaxis Multivitamin cocktail for COVID 19 related infections Ambien 10 mg bedtime for sleep Change the Lasix to 40 mg once a day We'll continue to follow. We'll make further recommendations based on his progress.
[2021-02-25] MEDS: ZOLPIDEM 5 MG TAB PO PRN (23:34)
[2021-02-26] MEDS: PANTOPRAZOLE 40 MG TABLET PO SCH ×2 (06:05→18:11)
--- NOTE | 2021-02-26 08:07 | P.PN ---
Subjective Progress Note Date: 02/25/21 HISTORY OF PRESENT ILLNESS: This is a 56-year-old male with a past medical history significant for hypertension and hypertensive cardiovascular disease, hyperlipidemia, history of tobacco use and dependence, presented to the emergency department at [facility] with increased coughing and increased shortness breath that started last and has been getting worse over the last few days, yesterday he was extremely short of breath and his oxygen saturation was in the low 70s, his tried to get him to the ER but eventually called 911 and the patient was brought into the ER at [facility] where he had a chest x-ray that did show evidence of bilateral patchy infiltrate suggestive of Covid pneumonia, his COVID-19 PCR was positive, patient was started on nonrebreather, and later on was seen in consultation by pulmonary medicine and he was placed on Airvo and was started on Bacitinib 4 mg po daily and the patient was admitted to the hospital for further evaluation and treatment. 02/05: A shunt is currently on AirVol. He has complained of feeling tired and complaining of gastric reflux. Protonix will be increased to 40 mg IV push twice daily. Patient is been seen by pulmonary medicine and started on Baricitinib, continued on dexamethasone 6 mg twice daily, Lovenox 40 mg daily. He has been afebrile, heart rate 92, blood pressure 137/86, pulse ox 97%. Repeat blood work reveals WBC 2.2, d-dimer 3.33, blood sugar 143. LDH 735, C-r eactive protein 15.5. Chest x-ray reveals chronic emphysematous and pulmonary fibrotic changes with bilateral multifocal reticular nodular opacities consistent with COVID-19. Perhaps slight improvement in the right lung base. Ultrasound of bilateral lower extremities negative for DVT. 02/06: Last evening, patient was transferred into the intensive care unit as he was on 15 L nonrebreather was transitioned over to AirVo 60 L 90% with nonrebreather on top. Pulse ox is currently running 84-87%. He has been afebrile, heart rate in the 80s and 90s, respiratory rate 29, blood pressure 131/82. Patient is requesting Cepacol lozenges and nasal spray added. Ensure 3 times daily also added, patient has decreased appetite and limited oral intake. Repeat blood work reveals WBC 4.9, hemoglobin 13.6. Platelet count 381. D- dimer 2.15. LDH 1685. C-reactive protein 5.6. Repeat chest x-ray revealed continue his Covid infiltrate superimposed on bollous emphysema. Slight improvement in aeration in the right upper lobe. Patient is continued on dexamethasone, Lovenox, vitamin supplements and Baricitinib. 02/07:patient remains in the intensive care unit. He is on nonrebreather mask as well as high flow AirVo with O2 at 60 L, FiO2 90%. patient remains afebrile, heart rate in the 70s, respiratory rate 26, blood pressure 127/79, pulse ox 86- 88%, pulse ox drops in the low 80s when patient ate's. He is on ensure 3 times daily. Patient is complaining of some cough and back pain when he coughs. He is less fatigued today. 02/08: Patient remains in intensive care unit currently on nonrebreather, as well as a high flow airflow oxygen still borderline at 89%, patient is eating his protein, hysterectomy 8 his breakfast, he has no chest pain at this time he continues to be extreme short of breath, he has no abdominal pain, he had lost some of the states, he has no headache, he has no hemoptysis, he has no pleurisy, he has no edema. 02/09: Patient sitting up in a chair his feeling a bit better. He continues to be on nonrebreather along with airflow 60 L, he denies any chest pain, his continues to be somewhat short of breath, he continues to struggle with breathing, has no abdominal pain, he had a good bowel movement yesterday, he is tolerating his food, patient is stable at this point in time, he will stay in the intensive care unit due to his oxygen requirement, chest x-ray showed bilateral diffuse infiltrate suggestive of Covid pneumonia, he continues to be on Decadron 6 mg orally twice every day, we'll continue conservative management continue supportive care continue Baricitinib daily for a total of 14 doses today is 08/10 02/10: Patient is feeling better today he continues to be on airVO and NRB, continues to require a lot of oxygen, sitting up and eating his breakfast, he has no chest pain, no pleurisy, he does competitive achiness in the back of his legs, he is current;y on Baricitinib Day #6 out of 14. 02/11: Patient is seen today in the ICU. He is on AirVo had 90% 60 L and nonrebreather is used as needed. Patient is more mobile in his room. He has been afebrile, heart rate 81 and 96, blood pressure 127/72 area pulse ox 87-95%. Repeat blood work reveals WBC 15.5. Electrolytes normal. BUN 27 creatinine 0.84. Blood sugar 145. Liver function tests were normal. Patient is on regular diet and protein supplements. He is continued on Baricitinib, oral dexamethasone, Lovenox and supplements. 02/12: Patient remains in intensive care unit. He is on AirVo plus nonrebreather but he is keeping NRB in place except for oral intake. He has b een afebrile, heart rate 89, respiratory rate 23-30, blood pressure 132/75, pulse ox 90%. CTA of the chest showed no pulmonary embolism. Small pericardial effusion. Extensive emphysematous changes and/or pulmonary fibrosis. Patient is on regular diet and protein supplements. No vomiting or diarrhea. WBC 14.2. Creatinine 0.76. Blood sugar 142. ALT 71. 02/13: Patient is currently on AirVo and nonrebreather with pulse ox 82-96%. He has been afebrile, heart rate in the 90s, respiratory rate 19-36. Blood pressure 132/84. WBC 17.9. Sodium 134. Blood sugar 125. Patient is continued on supplements, Baricitinib, dexamethasone and Lovenox. 02/14: Patient remains in the intensive care unit on airvo and nonrebreather. He states he was up in a chair for a little while yesterday. He still has coughing, no fever or chills. He is taking protein supplement. Patient has been afebrile, heart rate 97, blood pressure 139/88, respiratory rate 24, pulse ox 92%. WBC 17.6. Sodium 131. Patient is continued on supplements, Baricitinib, dexamethasone and Lovenox. 02/15: Patient remains in the intensive care unit on AirVo and nonrebreather with pulse ox of 94%. Patient's been afebrile, heart rate 86, respiratory rate 22, blood pressure 120/75. Review blood work reveals WBC 21. AST 82, ALT 229. Sodium 131, potassium 4.8, creatinine 0.88. Patient is complaining of oral pain, grinding his teeth. Patient is continued on supplements, Baricitinib, dexamethasone and Lovenox. 02/16: Patient moved out of the ICU, his currently in the telemetry unit, his monitor showing sinus tachycardia with PACs, he continues to be on airVo and nonrebreather his oxygen is about 93%, it does drop to 88-89% with activity and exertion, he continues to be generally weak, he has no chest pain at this time, he has no pleurisy, there is no hemoptysis, he has no abdominal pain, nausea or vomiting, he seems to be tolerating her treatment very well. 02/17: Patient is about the same he continues to be in a telemetry unit, he continues to have sinus tachycardia, he continues to be on same oxygen he continues to be about the same, he is currently maintained on Decadron as well as Baricitinib for a total of 14 doses, we will continue to monitor his liver function tests, and as he continues to have transaminitis., Patient denies any chest pain at this time he has no abdominal pain, nausea vomiting or diarrhea. 02/18: Patient is seen sitting up in a chair today. He is on AirVO nonrebreather with pulse ox 92%. His been afebrile, heart rate 112, blood pressure 128/73. Patient is currently on dexamethasone, Lovenox and vitamin supplements. He has completed his course of Baricitinib. Repeat blood work reveals WBC 31.2, hemoglobin 15, platelet count 601. Sodium 131, potassium 4.7, chloride 97, CO2 25, BUN 32 creatinine 0.8. Blood sugars are running between 117 and 130s. AST is 198, ALT 875. Alkaline phosphatase 82. 02/19: Patient is currently on AirVo only with pulse ox of 8792%. He has been afebrile, heart rate 107, blood pressure 114/77. Have any nausea vomiting, no diarrhea. He states he is feeling better from yesterday. No repeat chest x-ray is scheduled for today. Repeat blood work will be ordered for tomorrow. Patient is been monitored closely and followed by the pulmonary service since admission. Currently he is on 60 L oxygen via high flow nasal cannula with FiO2 of 68%. Slightly tachypneic and got short of breath when he talks. Labs reviewed WBC 23k, d-dimer 0.75, sodium slightly low 129, potassium slightly high at 5.3, liver enzymes slightly elevated, lactate dehydrogenase is elevated 1114. Poorcalcitonin is 0.19, was 0.08. Chest x-ray showing COPD with patchy bilateral Covid pneumonia. Patient currently kept on dexamethasone 6 mg daily, vitamin C, vitamin D and zinc. Also he is on Pepcid and Lovenox. 02/22/2021 Patient reports some improvement in his shortness of breath. Today following a T-max trying to wean him down with lowering oxygen requirement 60 down to 40 L per minute with FiO2 68 down to 50% this morning. Patient is to cardiac and more tachypneic during these attempts for now, we will keep monitoring. However he does not report any worsening dyspnea. Sodium improved to 134, potassium down to 5.0. He remains on dexamethasone and multiple vitamins. Also he is on Lovenox and Pepcid We will keep monitoring 02/23/2021 Patient today show significant improvement with drop of oxygen requirement down to 15 L/m, patient reports more easier breathing. No much coughing. WBC 20 2K, d-dimer is stable at 0.7. Potassium normal at 4.3. Lactate dehydrogenase still elevated but stable at 1023. Patient remains on the same treatment of dexamethasone, multiple vitamins, Lovenox and Pepcid 02/24/2021 Patient awake and alert, he feels generally weak, significantly dyspneic while talking. Looks more tired and lethargic. Patient is hypoxic requiring 15 L/m nonrebreather and interval of 40 L at 50%, he is tachypneic and tachycardic. Heart rate around 119. Chest x-ray: Chronic parenchymal changes with left mid lung and bibasilar opacities consistent with known covid 19 infection. No significant change. Patient remains on vitamin C, D and zinc, dexamethasone, Lovenox and Pepcid 02/25: Patient is on nonrebreather and AirVo pulse ox of 91%. He's been afebrile, heart rate 118, blood pressure 1 3472. Patient complains of feeling tired. Repeat chest x-ray ordered, Lasix at 40 mg IV every 12 hours, Mucinex ordered. WBC 20.1. Magnesium 2.5. LDH 1039, C-reactive protein 4.3, pro-calcitonin 0.16. Patient is continued on dexamethasone, Lovenox and vitamin supplements. REVIEW OF SYSTEMS: Constitutional: Denies fever, chills, night sweats. No weight change. positive for weakness, reports fatigue no lethargy. Reports daytime sleepiness. HEENT: No headache. No nasal drainage or congestion. No epistaxis. Reports sore throat. Lungs: Continued shortness of breath with oxygen therapy, positive for cough, positive for sputum production. positive for wheezing. Reports dyspnea with minimal activity. Cardiovascular: No chest pain, no lower extremity edema. No palpitations. No paroxysmal nocturnal dyspnea. No orthopnea. No lightheadedness or dizziness. No syncopal episodes. Abdominal: denies abdominal pain. No nausea, vomiting. Denies diarrhea. No constipation. No bloody or tarry stools. Reports loss of appetite. Reports gastric reflux. Genitourinary: No dysuria, increased frequency, urgency. No urinary retention. Musculoskeletal: positive for myalgias. positive for generalized muscle weakness, no gait dysfunction, no frequent falls. No back pain. No neck pain. Integumentary: No wounds, no lesions. No rash or pruritus. No unusual bruising. Neurologic: No aphasia. No facial droop. No change in mentation. No head injury. No headache. No paralysis. No paresthesia. Psychiatric: No depression. No anxiety. Endocrine: No abnormal blood sugars. PHYSICAL EXAMINATION: General: 56-year-old male sitting in recliner no acute respiratory distress. Patient appears to be more comfortable. HEENT: Head is atraumatic, normocephalic, pupils were equal round, sclera nonicteric, conjunctivae were pale. Neck: Supple, no JVP, normal carotid upstroke bilaterally, no lymphadenopathy. Chest: Decreased breath sounds at the bases, few rhonchi, moderate expiratory wheezes, no chest wall tenderness, no intercostal retractions at rest. Heart: First heart sound is normal, second heart sounds normal, there is no gallop or murmur. Abdomen: Soft, nontender, nondistended, positive bowel sounds, no hepatosplenomegaly. Extremities: There is no edema no calf tenderness DP +2 bilaterally. Neurologic examination: Patient is awake alert and oriented X 3, cranial nerves II-12 appear grossly intact. ASSESSMENT AND PLAN: 1. Acute hypoxemic respiratory failure due to bilateral patchy interstitial pneumonia due to COVID-19 pneumonia. Continue patient on Lovenox 40 mg subcu daily, Decadron 6 mg orally every day, Vitamin C 1000 mg orally once every day, zinc 220 mg once every day, vitamin D 1000 units once every day, completed course of Baricitinib, continue oxygen therapy on AirVo. 2. Bilateral Covid pneumonia with ARDS. Continue with Airvo and nonrebreather, continue dexamethasone 6 mg orally every day, continue with supportive care. 3. Mild non-anion gap metabolic acidosis. Resolved. 4. Moderate protein calorie malnutrition secondary to decreased appetite and difficulty eating with oxygen mask. Continue Ensure 3 times daily. 5. Acute drug-induced hepatitis. Monitor the patient CMP in the next 24 hours. 6. DVT prophylaxis. Continue Lovenox 40 mg subcutaneously every 24 hours 7. GERD and GI prophylaxis. Continue patient on Protonix 40 mg IV push every 12 hours as well as Carafate 1 g orally twice every day . 8. Patient is full code. 9. Guarded prognosis. Impression and plan of care have been directed as dictated by the signing physician. Viridiana Baker nurse practitioner acting as scribe for signing physician. Objective - Vital Signs Vital signs: Vital Signs Temp 98.2 F 02/25/21 04:17 Pulse 118 H 02/25/21 04:17 Resp 24 02/25/21 04:17 BP 134/72 02/25/21 04:17 Pulse Ox 91 L 02/25/21 04:17 Intake & Output 02/24/21 02/25/21 02/25/21 18:59 06:59 18:59 Intake Total 1798 598 Output Total 825 1000 Balance 973 -402 Weight 80.2 kg Intake: Oral 1798 598 Output: Urine 825 1000 Uretheral (Cheek) 550 Other: Voiding Method Urinal Indwelling Catheter # Bowel Movements 1 - Labs CBC & Chem 7: 02/25/21 06:02 02/25/21 06:02 Labs: Abnormal Lab Results - Last 24 Hours (Table) 02/24/21 02/25/21 02/25/21 Range/Units 16:44 06:02 06:02 WBC 20.1 H (3.8-10.6) k/uL Neutrophils # 17.5 H (1.3-7.7) k/uL Lymphocytes # 0.9 L (1.0-4.8) k/uL Monocytes # 1.4 H (0-1.0) k/uL D-Dimer 1.15 H (<0.60) mg/L FEU Sodium (137-145) mmol/L BUN (9-20) mg/dL Glucose (74-99) mg/dL POC Glucose (mg/dL) 124 H (75-99) mg/dL Magnesium (1.6-2.3) mg/dL AST (17-59) U/L ALT (4-49) U/L Lactate Dehydrogenase (313-618) U/L C-Reactive Protein (<1.0) mg/dL Total Protein (6.3-8.2) g/dL 02/25/21 Range/Units 06:02 WBC (3.8-10.6) k/uL Neutrophils # (1.3-7.7) k/uL Lymphocytes # (1.0-4.8) k/uL Monocytes # (0-1.0) k/uL D-Dimer (<0.60) mg/L FEU Sodium 134 L (137-145) mmol/L BUN 32 H (9-20) mg/dL Glucose 118 H (74-99) mg/dL POC Glucose (mg/dL) (75-99) mg/dL Magnesium 2.5 H (1.6-2.3) mg/dL AST 68 H (17-59) U/L ALT 322 H (4-49) U/L Lactate Dehydrogenase 1039 H (313-618) U/L C-Reactive Protein 4.3 H (<1.0) mg/dL Total Protein 6.1 L (6.3-8.2) g/dL
[2021-02-26] MEDS: MULTIVITAMINS, THERA 1 EACH TAB PO SCH (08:29)
[2021-02-26] MEDS: dexAMETHasone 2 MG TAB PO SCH (08:29)
[2021-02-26] MEDS: ZINC SULFATE 220 MG CAP PO SCH (08:29)
[2021-02-26] MEDS: CHOLECALCIFEROL 25 MCG (1000 IU) TABLET PO SCH (08:29)
[2021-02-26] MEDS: guaiFENesin 600 MG TABLET.ER PO SCH ×2 (08:29→20:52)
[2021-02-26] MEDS: ASCORBIC ACID 500 MG TAB PO SCH (08:30)
[2021-02-26] MEDS: ENOXAPARIN 40 MG/0.4 ML SYRINGE SQ SCH (08:30)
[2021-02-26] MEDS: FUROSEMIDE 10 MG/ML 4 ML VIAL IV SCH (08:30)
[2021-02-26] MEDS: POTASSIUM CHLORIDE ER 20 MEQ TAB.ER PO SCH (10:29)
[2021-02-26] MEDS: BACLOFEN 10 MG TAB PO PRN (10:30)
--- NOTE | 2021-02-26 11:24 | P.PN ---
Subjective Progress Note Date: 02/26/21 02/26/2021, the patient is essentially the same. He slept all night on a high flow oxygen with a 40 L with an FiO2 of 50%. Earlier this morning as he was trying to get up, he desaturated and he subsequently had to put his 100% nonrebreather facemask on. It took them approximately an hour to build his oxygen back to above 90%. He is still having shortness of breath even at rest. Limited cough. No significant sputum production. He remains on Decadron 6 mg by mouth daily. Is also on Lovenox 40 mg subcu for DVT prophylaxis. His inflammatory markers were gradually improving. His LDH was down to 1039. LFTs are also improving. He is tolerating his diet. Is awake and alert. His been hospital for more than 3 weeks for COVID associated pneumonia. The patient is also producing excellent urine output. He is negative fluid balance of 1.8 L over the past 24 hours and the patient was started on Lasix and currently is taking 40 mg IV push daily Lasix. The inflammatory marker from today shows an LDH level of 1039 with a CRP of 4.3. The patient also was given Ambien overnight and the patient had an excellent night's sleep Objective - Vital Signs Vital signs: Vital Signs Temp 98.1 F 02/26/21 08:38 Pulse 114 H 02/26/21 08:38 Resp 24 02/26/21 08:38 BP 108/67 02/26/21 08:38 Pulse Ox 93 L 02/26/21 09:10 Intake & Output 02/25/21 02/26/21 02/26/21 18:59 06:59 18:59 Intake Total 840 640 240 Output Total 1999 1325 Balance -1160 -685 240 Weight 80.2 kg 80 kg Intake: Oral 840 640 240 Output: Urine 1999 1324 Uretheral (Cheek) 1325 Other: Voiding Method Indwelling Catheter Indwelling Catheter # Bowel Movements 0 1 - Exam Gen. appearance the patient is breathing comfortably Currently is on Airvo 40 L an FiO2 of 50%, Head exam was generally normal. There was no scleral icterus or corneal arcus. Mucous membranes were moist. Neck was supple and without jugular venous distension, thyromegaly, or carotid bruits. Carotids were easily palpable bilaterally. There was no adenopathy. Lungs sounds are diminished in the patient's crackles in the mid and lower lung talamantes bilaterally Cardiac exam revealed the PMI to be normally situated and sized. The rhythm was regular and no extrasystoles were noted during several minutes of auscultation. The first and second heart sounds were normal and physiologic splitting of the second heart sound was noted. There were no murmurs, rubs, clicks, or gallops. Abdominal exam revealed normal bowel sounds. The abdomen was soft, non-tender, and without masses, organomegaly, or appreciable enlargement of the abdominal aorta. Examination of the extremities revealed easily palpable radial, femoral and pedal pulses. There was no cyanosis, clubbing or edema. Examination of the skin revealed no evidence of significant rashes, suspicious appearing nevi or other concerning lesions. Neurologically, the patient is awake and alert and the patient does not have any focal neurological deficit. Cranial nerves are essentially intact. - Labs CBC & Chem 7: 02/25/21 06:02 02/25/21 06:02 Assessment and Plan Plan: 1 acute COVID 19 related pneumonia with secondary respiratory failure. Currently on airvo 40 liters and 50% Fio2. Chest x-ray showing diffuse bilateral pulmonary infiltrates consistent with COVID 19 related pneumonia. No interval worsening in his chest x-ray findings. The inflammatory markers including the LDH and CRP are being monitored. D-dimer is also lower. The patient is still on Decadron 6 mg and the patient has completed Baricitinib. The patient remains on Lovenox for DVT prophylaxis. Chest x-ray findings are stable. Clinically the patient is stable. He is still desaturating with mobility and activity. Chest x-ray still showing bilateral lower lobe pulmonary infiltrates worse on the left. On today's evaluation, the patient remains essentially on the same setting. The patient is also utilizing 100% nonrebreather facemask. Inflammatory markers revealed an LDH level in the low thousand. CT angiogram from 02/11/2021 was negative for pulmonary embolism. The patient has been and the hospital for at least 3 weeks for now. 2 shortness of breath secondary to above 3 acute hypoxic respiratory failure secondary to above 4 hypertension Plan Continue Airvo 40 L an FiO2 of 50% long with 100% on a beta facemask Continue Lasix Continue Decadron 6 mg every 24 hours and gradually reduce dose as the patient has been on steroids for 3 weeks, the patient was on twice a day Decadron doses and he was not found to once a day yesterday and gradually going to wean him down over the course of this week. Completed Baricitinib per protocol Lovenox 40 mg subcu for DVT prophylaxis Multivitamin cocktail for COVID 19 related infections Ambien 10 mg bedtime for sleep Change the Lasix to 40 mg once a day IV We'll continue to follow. We'll make further recommendations based on his progress.
--- NOTE | 2021-02-26 15:47 | P.PN ---
Subjective Progress Note Date: 02/26/21 HISTORY OF PRESENT ILLNESS: This is a 56-year-old male with a past medical history significant for hypertension and hypertensive cardiovascular disease, hyperlipidemia, history of tobacco use and dependence, presented to the emergency department at [facility] with increased coughing and increased shortness breath that started last and has been getting worse over the last few days, yesterday he was extremely short of breath and his oxygen saturation was in the low 70s, his tried to get him to the ER but eventually called 911 and the patient was brought into the ER at [facility] where he had a chest x-ray that did show evidence of bilateral patchy infiltrate suggestive of Covid pneumonia, his COVID-19 PCR was positive, patient was started on nonrebreather, and later on was seen in consultation by pulmonary medicine and he was placed on Airvo and was started on Bacitinib 4 mg po daily and the patient was admitted to the hospital for further evaluation and treatment. 02/05: A shunt is currently on AirVol. He has complained of feeling tired and complaining of gastric reflux. Protonix will be increased to 40 mg IV push twice daily. Patient is been seen by pulmonary medicine and started on Baricitinib, continued on dexamethasone 6 mg twice daily, Lovenox 40 mg daily. He has been afebrile, heart rate 92, blood pressure 137/86, pulse ox 97%. Repeat blood work reveals WBC 2.2, d-dimer 3.33, blood sugar 143. LDH 735, C-r eactive protein 15.5. Chest x-ray reveals chronic emphysematous and pulmonary fibrotic changes with bilateral multifocal reticular nodular opacities consistent with COVID-19. Perhaps slight improvement in the right lung base. Ultrasound of bilateral lower extremities negative for DVT. 02/06: Last evening, patient was transferred into the intensive care unit as he was on 15 L nonrebreather was transitioned over to AirVo 60 L 90% with nonrebreather on top. Pulse ox is currently running 84-87%. He has been afebrile, heart rate in the 80s and 90s, respiratory rate 29, blood pressure 131/82. Patient is requesting Cepacol lozenges and nasal spray added. Ensure 3 times daily also added, patient has decreased appetite and limited oral intake. Repeat blood work reveals WBC 4.9, hemoglobin 13.6. Platelet count 381. D- dimer 2.15. LDH 1685. C-reactive protein 5.6. Repeat chest x-ray revealed continue his Covid infiltrate superimposed on bollous emphysema. Slight improvement in aeration in the right upper lobe. Patient is continued on dexamethasone, Lovenox, vitamin supplements and Baricitinib. 02/07:patient remains in the intensive care unit. He is on nonrebreather mask as well as high flow AirVo with O2 at 60 L, FiO2 90%. patient remains afebrile, heart rate in the 70s, respiratory rate 26, blood pressure 127/79, pulse ox 86- 88%, pulse ox drops in the low 80s when patient ate's. He is on ensure 3 times daily. Patient is complaining of some cough and back pain when he coughs. He is less fatigued today. 02/08: Patient remains in intensive care unit currently on nonrebreather, as well as a high flow airflow oxygen still borderline at 89%, patient is eating his protein, hysterectomy 8 his breakfast, he has no chest pain at this time he continues to be extreme short of breath, he has no abdominal pain, he had lost some of the states, he has no headache, he has no hemoptysis, he has no pleurisy, he has no edema. 02/09: Patient sitting up in a chair his feeling a bit better. He continues to be on nonrebreather along with airflow 60 L, he denies any chest pain, his continues to be somewhat short of breath, he continues to struggle with breathing, has no abdominal pain, he had a good bowel movement yesterday, he is tolerating his food, patient is stable at this point in time, he will stay in the intensive care unit due to his oxygen requirement, chest x-ray showed bilateral diffuse infiltrate suggestive of Covid pneumonia, he continues to be on Decadron 6 mg orally twice every day, we'll continue conservative management continue supportive care continue Baricitinib daily for a total of 14 doses today is 08/10 02/10: Patient is feeling better today he continues to be on airVO and NRB, continues to require a lot of oxygen, sitting up and eating his breakfast, he has no chest pain, no pleurisy, he does competitive achiness in the back of his legs, he is current;y on Baricitinib Day #6 out of 14. 02/11: Patient is seen today in the ICU. He is on AirVo had 90% 60 L and nonrebreather is used as needed. Patient is more mobile in his room. He has been afebrile, heart rate 81 and 96, blood pressure 127/72 area pulse ox 87-95%. Repeat blood work reveals WBC 15.5. Electrolytes normal. BUN 27 creatinine 0.84. Blood sugar 145. Liver function tests were normal. Patient is on regular diet and protein supplements. He is continued on Baricitinib, oral dexamethasone, Lovenox and supplements. 02/12: Patient remains in intensive care unit. He is on AirVo plus nonrebreather but he is keeping NRB in place except for oral intake. He has b een afebrile, heart rate 89, respiratory rate 23-30, blood pressure 132/75, pulse ox 90%. CTA of the chest showed no pulmonary embolism. Small pericardial effusion. Extensive emphysematous changes and/or pulmonary fibrosis. Patient is on regular diet and protein supplements. No vomiting or diarrhea. WBC 14.2. Creatinine 0.76. Blood sugar 142. ALT 71. 02/13: Patient is currently on AirVo and nonrebreather with pulse ox 82-96%. He has been afebrile, heart rate in the 90s, respiratory rate 19-36. Blood pressure 132/84. WBC 17.9. Sodium 134. Blood sugar 125. Patient is continued on supplements, Baricitinib, dexamethasone and Lovenox. 02/14: Patient remains in the intensive care unit on airvo and nonrebreather. He states he was up in a chair for a little while yesterday. He still has coughing, no fever or chills. He is taking protein supplement. Patient has been afebrile, heart rate 97, blood pressure 139/88, respiratory rate 24, pulse ox 92%. WBC 17.6. Sodium 131. Patient is continued on supplements, Baricitinib, dexamethasone and Lovenox. 02/15: Patient remains in the intensive care unit on AirVo and nonrebreather with pulse ox of 94%. Patient's been afebrile, heart rate 86, respiratory rate 22, blood pressure 120/75. Review blood work reveals WBC 21. AST 82, ALT 229. Sodium 131, potassium 4.8, creatinine 0.88. Patient is complaining of oral pain, grinding his teeth. Patient is continued on supplements, Baricitinib, dexamethasone and Lovenox. 02/16: Patient moved out of the ICU, his currently in the telemetry unit, his monitor showing sinus tachycardia with PACs, he continues to be on airVo and nonrebreather his oxygen is about 93%, it does drop to 88-89% with activity and exertion, he continues to be generally weak, he has no chest pain at this time, he has no pleurisy, there is no hemoptysis, he has no abdominal pain, nausea or vomiting, he seems to be tolerating her treatment very well. 02/17: Patient is about the same he continues to be in a telemetry unit, he continues to have sinus tachycardia, he continues to be on same oxygen he continues to be about the same, he is currently maintained on Decadron as well as Baricitinib for a total of 14 doses, we will continue to monitor his liver function tests, and as he continues to have transaminitis., Patient denies any chest pain at this time he has no abdominal pain, nausea vomiting or diarrhea. 02/18: Patient is seen sitting up in a chair today. He is on AirVO nonrebreather with pulse ox 92%. His been afebrile, heart rate 112, blood pressure 128/73. Patient is currently on dexamethasone, Lovenox and vitamin supplements. He has completed his course of Baricitinib. Repeat blood work reveals WBC 31.2, hemoglobin 15, platelet count 601. Sodium 131, potassium 4.7, chloride 97, CO2 25, BUN 32 creatinine 0.8. Blood sugars are running between 117 and 130s. AST is 198, ALT 875. Alkaline phosphatase 82. 02/19: Patient is currently on AirVo only with pulse ox of 8792%. He has been afebrile, heart rate 107, blood pressure 114/77. Have any nausea vomiting, no diarrhea. He states he is feeling better from yesterday. No repeat chest x-ray is scheduled for today. Repeat blood work will be ordered for tomorrow. Patient is been monitored closely and followed by the pulmonary service since admission. Currently he is on 60 L oxygen via high flow nasal cannula with FiO2 of 68%. Slightly tachypneic and got short of breath when he talks. Labs reviewed WBC 23k, d-dimer 0.75, sodium slightly low 129, potassium slightly high at 5.3, liver enzymes slightly elevated, lactate dehydrogenase is elevated 1114. Poorcalcitonin is 0.19, was 0.08. Chest x-ray showing COPD with patchy bilateral Covid pneumonia. Patient currently kept on dexamethasone 6 mg daily, vitamin C, vitamin D and zinc. Also he is on Pepcid and Lovenox. 02/22/2021 Patient reports some improvement in his shortness of breath. Today following a T-max trying to wean him down with lowering oxygen requirement 60 down to 40 L per minute with FiO2 68 down to 50% this morning. Patient is to cardiac and more tachypneic during these attempts for now, we will keep monitoring. However he does not report any worsening dyspnea. Sodium improved to 134, potassium down to 5.0. He remains on dexamethasone and multiple vitamins. Also he is on Lovenox and Pepcid We will keep monitoring 02/23/2021 Patient today show significant improvement with drop of oxygen requirement down to 15 L/m, patient reports more easier breathing. No much coughing. WBC 20 2K, d-dimer is stable at 0.7. Potassium normal at 4.3. Lactate dehydrogenase still elevated but stable at 1023. Patient remains on the same treatment of dexamethasone, multiple vitamins, Lovenox and Pepcid 02/24/2021 Patient awake and alert, he feels generally weak, significantly dyspneic while talking. Looks more tired and lethargic. Patient is hypoxic requiring 15 L/m nonrebreather and interval of 40 L at 50%, he is tachypneic and tachycardic. Heart rate around 119. Chest x-ray: Chronic parenchymal changes with left mid lung and bibasilar opacities consistent with known covid 19 infection. No significant change. Patient remains on vitamin C, D and zinc, dexamethasone, Lovenox and Pepcid 02/25: Patient is on nonrebreather and AirVo pulse ox of 91%. He's been afebrile, heart rate 118, blood pressure 1 3472. Patient complains of feeling tired. Repeat chest x-ray ordered, Lasix at 40 mg IV every 12 hours, Mucinex ordered. WBC 20.1. Magnesium 2.5. LDH 1039, C-reactive protein 4.3, pro-calcitonin 0.16. Patient is continued on dexamethasone, Lovenox and vitamin supplements. 02/26: Pulse ox is running 89 and 99% with nonrebreather at 15 L and high flow nasal cannula at 15 L. He remains afebrile, heart rate 113, respiratory rate 24, blood pressure 117/72. No repeat blood work today. Patient states he slept well last night but he was having cramps yesterday most likely from diuresing. He did have 3000 ml urine out and Lasix decreased to once daily. Patient has less lower extremity edema and lower extremity ultrasound bilaterally ordered. Patient was complaining of back discomfort for which baclofen will be ordered. Repeat blood work and chest x-ray for tomorrow. Chest x-ray from yesterday reveals coarse basilar infiltrates unchanged from prior study. REVIEW OF SYSTEMS: Constitutional: Denies fever, chills, night sweats. No weight change. positive for weakness, reports fatigue no lethargy. Reports daytime sleepiness. HEENT: No headache. No nasal drainage or congestion. No epistaxis. Reports sore throat. Lungs: Continued shortness of breath with oxygen therapy, positive for cough, positive for sputum production. positive for wheezing. Reports dyspnea with m inimal activity. Cardiovascular: No chest pain, no lower extremity edema. No palpitations. No paroxysmal nocturnal dyspnea. No orthopnea. No lightheadedness or dizziness. No syncopal episodes. Abdominal: denies abdominal pain. No nausea, vomiting. Denies diarrhea. No constipation. No bloody or tarry stools. Reports loss of appetite. Genitourinary: No dysuria, increased frequency, urgency. No urinary retention. Musculoskeletal: positive for myalgias. positive for generalized muscle w eakness, no gait dysfunction, no frequent falls. Reports back pain. No neck pain. Integumentary: No wounds, no lesions. No rash or pruritus. No unusual bruising. Neurologic: No aphasia. No facial droop. No change in mentation. No head injury. No headache. No paralysis. No paresthesia. Psychiatric: No depression. No anxiety. Endocrine: No abnormal blood sugars. PHYSICAL EXAMINATION: General: 56-year-old male sitting in recliner no acute respiratory distress. Patient appears to be more comfortable. HEENT: Head is atraumatic, normocephalic, pupils were equal round, sclera nonicteric, conjunctivae were pale. Neck: Supple, no JVP, normal carotid upstroke bilaterally, no lymphadenopathy. Chest: Decreased breath sounds at the bases, few rhonchi, moderate expiratory wheezes, no chest wall tenderness, no intercostal retractions at rest. Heart: First heart sound is normal, second heart sounds normal, there is no gallop or murmur. Abdomen: Soft, nontender, nondistended, positive bowel sounds, no hepatosplenomegaly. Extremities: There is no edema no calf tenderness DP +2 bilaterally. Neurologic examination: Patient is awake alert and oriented X 3, cranial nerves II-12 appear grossly intact. ASSESSMENT AND PLAN: 1. Acute hypoxemic respiratory failure due to bilateral patchy interstitial pneumonia due to COVID-19 pneumonia and sepsis (POA). Continue patient on Lovenox 40 mg subcu daily, Decadron 6 mg orally every day, Vitamin C 1000 mg orally once every day, zinc 220 mg once every day, vitamin D 1000 units once every day, completed course of Baricitinib, continue oxygen therapy on AirVo and nonrebreather. 2. Bilateral Covid pneumonia with ARDS. Continue with Airvo and nonrebreather, continue dexamethasone 6 mg orally every day, continue with supportive care. 3. Mild non-anion gap metabolic acidosis. Resolved. 4. Moderate protein calorie malnutrition secondary to decreased appetite and difficulty eating with oxygen mask. Continue Ensure 3 times daily. 5. Acute drug-induced hepatitis. Monitor the patient CMP in the next 24 hours. 6. DVT prophylaxis. Continue Lovenox 40 mg subcutaneously every 24 hours 7. GERD and GI prophylaxis. Continue patient on Protonix 40 mg oral twice da erin. 8. Patient is full code. 9. Guarded prognosis. DISCHARGE PLAN Home most likely with home care and oxygen therapy. Impression and plan of care have been directed as dictated by the signing physician. Viridiana Baker nurse practitioner acting as scribe for signing ph ysician. Objective - Vital Signs Vital signs: Vital Signs Temp 97.6 F 02/26/21 04:11 Pulse 113 H 02/26/21 04:11 Resp 24 02/26/21 04:11 BP 117/72 02/26/21 04:11 Pulse Ox 89 L 02/26/21 04:11 Intake & Output 02/25/21 02/26/21 02/26/21 18:59 06:59 18:59 Intake Total 840 640 Output Total 1999 1325 Balance -8324 -594 Weight 80.2 kg 80 kg Intake: Oral 840 640 Output: Urine 1999 1325 Uretheral (Cheek) 1325 Other: Voiding Method Indwelling Catheter Indwelling Catheter # Bowel Movements 0 1 - Labs CBC & Chem 7: 02/25/21 06:02 02/25/21 06:02 Labs: Abnormal Lab Results - Last 24 Hours (Table) 02/25/21 Range/Units 06:02 Procalcitonin 0.16 H (0.02-0.09) ng/mL
--- NOTE | 2021-02-26 15:49 | US ---
EXAMINATION TYPE: US venous doppler duplex LE BI DATE OF EXAM: 02/26/2021 9:52 AM COMPARISON: NONE CLINICAL HISTORY: edema and tenderness. SIDE PERFORMED: Bilateral TECHNIQUE: The lower extremity deep venous system is examined utilizing real time linear array sonog maximiliano with graded compression, doppler sonography and color-flow sonography. VESSELS IMAGED: Common Femoral Vein Deep Femoral Vein Greater Saphenous Vein * Femoral Vein Popliteal Vein Small Saphenous Vein * Proximal Calf Veins (* superficial vessels) Right Leg: Negative for DVT Left Leg: Negative for DVT IMPRESSION: 1. Bilateral lower extremity ultrasound negative for deep venous thrombosis.
[2021-02-26] MEDS: ZOLPIDEM 5 MG TAB PO PRN (20:52)
[2021-02-27] MEDS: PANTOPRAZOLE 40 MG TABLET PO SCH ×2 (06:31→18:00)
--- NOTE | 2021-02-27 08:25 | XR ---
EXAMINATION TYPE: XR chest 1V portable DATE OF EXAM: 02/27/2021 COMPARISON: 02/25/2021 INDICATION: Covid TECHNIQUE: Single frontal view of the chest is obtained. FINDINGS: The heart size is normal. The pulmonary vasculature is normal. Diffuse increased lung markings within the left lung at the right lung base. Findings are nonspecific . Consider atypical pneumonia. Follow-up is recommended IMPRESSION: 1. Diffuse bilateral lung infiltrates, stable. Continued follow-up is recommended
--- NOTE | 2021-02-27 09:04 | P.PN ---
Subjective Progress Note Date: 02/27/21 HISTORY OF PRESENT ILLNESS: This is a 56-year-old male with a past medical history significant for hypertension and hypertensive cardiovascular disease, hyperlipidemia, history of tobacco use and dependence, presented to the emergency department at [facility] with increased coughing and increased shortness breath that started last and has been getting worse over the last few days, yesterday he was extremely short of breath and his oxygen saturation was in the low 70s, his tried to get him to the ER but eventually called 911 and the patient was brought into the ER at [facility] where he had a chest x-ray that did show evidence of bilateral patchy infiltrate suggestive of Covid pneumonia, his COVID-19 PCR was positive, patient was started on nonrebreather, and later on was seen in consultation by pulmonary medicine and he was placed on Airvo and was started on Bacitinib 4 mg po daily and the patient was admitted to the hospital for further evaluation and treatment. 02/05: A shunt is currently on AirVol. He has complained of feeling tired and complaining of gastric reflux. Protonix will be increased to 40 mg IV push twice daily. Patient is been seen by pulmonary medicine and started on Baricitinib, continued on dexamethasone 6 mg twice daily, Lovenox 40 mg daily. He has been afebrile, heart rate 92, blood pressure 137/86, pulse ox 97%. Repeat blood work reveals WBC 2.2, d-dimer 3.33, blood sugar 143. LDH 735, C-r eactive protein 15.5. Chest x-ray reveals chronic emphysematous and pulmonary fibrotic changes with bilateral multifocal reticular nodular opacities consistent with COVID-19. Perhaps slight improvement in the right lung base. Ultrasound of bilateral lower extremities negative for DVT. 02/06: Last evening, patient was transferred into the intensive care unit as he was on 15 L nonrebreather was transitioned over to AirVo 60 L 90% with nonrebreather on top. Pulse ox is currently running 84-87%. He has been afebrile, heart rate in the 80s and 90s, respiratory rate 29, blood pressure 131/82. Patient is requesting Cepacol lozenges and nasal spray added. Ensure 3 times daily also added, patient has decreased appetite and limited oral intake. Repeat blood work reveals WBC 4.9, hemoglobin 13.6. Platelet count 381. D- dimer 2.15. LDH 1685. C-reactive protein 5.6. Repeat chest x-ray revealed continue his Covid infiltrate superimposed on bollous emphysema. Slight improvement in aeration in the right upper lobe. Patient is continued on dexamethasone, Lovenox, vitamin supplements and Baricitinib. 02/07:patient remains in the intensive care unit. He is on nonrebreather mask as well as high flow AirVo with O2 at 60 L, FiO2 90%. patient remains afebrile, heart rate in the 70s, respiratory rate 26, blood pressure 127/79, pulse ox 86- 88%, pulse ox drops in the low 80s when patient ate's. He is on ensure 3 times daily. Patient is complaining of some cough and back pain when he coughs. He is less fatigued today. 02/08: Patient remains in intensive care unit currently on nonrebreather, as well as a high flow airflow oxygen still borderline at 89%, patient is eating his protein, hysterectomy 8 his breakfast, he has no chest pain at this time he continues to be extreme short of breath, he has no abdominal pain, he had lost some of the states, he has no headache, he has no hemoptysis, he has no pleurisy, he has no edema. 02/09: Patient sitting up in a chair his feeling a bit better. He continues to be on nonrebreather along with airflow 60 L, he denies any chest pain, his continues to be somewhat short of breath, he continues to struggle with breathing, has no abdominal pain, he had a good bowel movement yesterday, he is tolerating his food, patient is stable at this point in time, he will stay in the intensive care unit due to his oxygen requirement, chest x-ray showed bilateral diffuse infiltrate suggestive of Covid pneumonia, he continues to be on Decadron 6 mg orally twice every day, we'll continue conservative management continue supportive care continue Baricitinib daily for a total of 14 doses today is 08/10 02/10: Patient is feeling better today he continues to be on airVO and NRB, continues to require a lot of oxygen, sitting up and eating his breakfast, he has no chest pain, no pleurisy, he does competitive achiness in the back of his legs, he is current;y on Baricitinib Day #6 out of 14. 02/11: Patient is seen today in the ICU. He is on AirVo had 90% 60 L and nonrebreather is used as needed. Patient is more mobile in his room. He has been afebrile, heart rate 81 and 96, blood pressure 127/72 area pulse ox 87-95%. Repeat blood work reveals WBC 15.5. Electrolytes normal. BUN 27 creatinine 0.84. Blood sugar 145. Liver function tests were normal. Patient is on regular diet and protein supplements. He is continued on Baricitinib, oral dexamethasone, Lovenox and supplements. 02/12: Patient remains in intensive care unit. He is on AirVo plus nonrebreather but he is keeping NRB in place except for oral intake. He has b een afebrile, heart rate 89, respiratory rate 23-30, blood pressure 132/75, pulse ox 90%. CTA of the chest showed no pulmonary embolism. Small pericardial effusion. Extensive emphysematous changes and/or pulmonary fibrosis. Patient is on regular diet and protein supplements. No vomiting or diarrhea. WBC 14.2. Creatinine 0.76. Blood sugar 142. ALT 71. 02/13: Patient is currently on AirVo and nonrebreather with pulse ox 82-96%. He has been afebrile, heart rate in the 90s, respiratory rate 19-36. Blood pressure 132/84. WBC 17.9. Sodium 134. Blood sugar 125. Patient is continued on supplements, Baricitinib, dexamethasone and Lovenox. 02/14: Patient remains in the intensive care unit on airvo and nonrebreather. He states he was up in a chair for a little while yesterday. He still has coughing, no fever or chills. He is taking protein supplement. Patient has been afebrile, heart rate 97, blood pressure 139/88, respiratory rate 24, pulse ox 92%. WBC 17.6. Sodium 131. Patient is continued on supplements, Baricitinib, dexamethasone and Lovenox. 02/15: Patient remains in the intensive care unit on AirVo and nonrebreather with pulse ox of 94%. Patient's been afebrile, heart rate 86, respiratory rate 22, blood pressure 120/75. Review blood work reveals WBC 21. AST 82, ALT 229. Sodium 131, potassium 4.8, creatinine 0.88. Patient is complaining of oral pain, grinding his teeth. Patient is continued on supplements, Baricitinib, dexamethasone and Lovenox. 02/16: Patient moved out of the ICU, his currently in the telemetry unit, his monitor showing sinus tachycardia with PACs, he continues to be on airVo and nonrebreather his oxygen is about 93%, it does drop to 88-89% with activity and exertion, he continues to be generally weak, he has no chest pain at this time, he has no pleurisy, there is no hemoptysis, he has no abdominal pain, nausea or vomiting, he seems to be tolerating her treatment very well. 02/17: Patient is about the same he continues to be in a telemetry unit, he continues to have sinus tachycardia, he continues to be on same oxygen he continues to be about the same, he is currently maintained on Decadron as well as Baricitinib for a total of 14 doses, we will continue to monitor his liver function tests, and as he continues to have transaminitis., Patient denies any chest pain at this time he has no abdominal pain, nausea vomiting or diarrhea. 02/18: Patient is seen sitting up in a chair today. He is on AirVO nonrebreather with pulse ox 92%. His been afebrile, heart rate 112, blood pressure 128/73. Patient is currently on dexamethasone, Lovenox and vitamin supplements. He has completed his course of Baricitinib. Repeat blood work reveals WBC 31.2, hemoglobin 15, platelet count 601. Sodium 131, potassium 4.7, chloride 97, CO2 25, BUN 32 creatinine 0.8. Blood sugars are running between 117 and 130s. AST is 198, ALT 875. Alkaline phosphatase 82. 02/19: Patient is currently on AirVo only with pulse ox of 8792%. He has been afebrile, heart rate 107, blood pressure 114/77. Have any nausea vomiting, no diarrhea. He states he is feeling better from yesterday. No repeat chest x-ray is scheduled for today. Repeat blood work will be ordered for tomorrow. Patient is been monitored closely and followed by the pulmonary service since admission. Currently he is on 60 L oxygen via high flow nasal cannula with FiO2 of 68%. Slightly tachypneic and got short of breath when he talks. Labs reviewed WBC 23k, d-dimer 0.75, sodium slightly low 129, potassium slightly high at 5.3, liver enzymes slightly elevated, lactate dehydrogenase is elevated 1114. Poorcalcitonin is 0.19, was 0.08. Chest x-ray showing COPD with patchy bilateral Covid pneumonia. Patient currently kept on dexamethasone 6 mg daily, vitamin C, vitamin D and zinc. Also he is on Pepcid and Lovenox. 02/22/2021 Patient reports some improvement in his shortness of breath. Today following a T-max trying to wean him down with lowering oxygen requirement 60 down to 40 L per minute with FiO2 68 down to 50% this morning. Patient is to cardiac and more tachypneic during these attempts for now, we will keep monitoring. However he does not report any worsening dyspnea. Sodium improved to 134, potassium down to 5.0. He remains on dexamethasone and multiple vitamins. Also he is on Lovenox and Pepcid We will keep monitoring 02/23/2021 Patient today show significant improvement with drop of oxygen requirement down to 15 L/m, patient reports more easier breathing. No much coughing. WBC 20 2K, d-dimer is stable at 0.7. Potassium normal at 4.3. Lactate dehydrogenase still elevated but stable at 1023. Patient remains on the same treatment of dexamethasone, multiple vitamins, Lovenox and Pepcid 02/24/2021 Patient awake and alert, he feels generally weak, significantly dyspneic while talking. Looks more tired and lethargic. Patient is hypoxic requiring 15 L/m nonrebreather and interval of 40 L at 50%, he is tachypneic and tachycardic. Heart rate around 119. Chest x-ray: Chronic parenchymal changes with left mid lung and bibasilar opacities consistent with known covid 19 infection. No significant change. Patient remains on vitamin C, D and zinc, dexamethasone, Lovenox and Pepcid 02/25: Patient is on nonrebreather and AirVo pulse ox of 91%. He's been afebrile, heart rate 118, blood pressure 1 3472. Patient complains of feeling tired. Repeat chest x-ray ordered, Lasix at 40 mg IV every 12 hours, Mucinex ordered. WBC 20.1. Magnesium 2.5. LDH 1039, C-reactive protein 4.3, pro-calcitonin 0.16. Patient is continued on dexamethasone, Lovenox and vitamin supplements. 02/26: Pulse ox is running 89 and 99% with nonrebreather at 15 L and high flow nasal cannula at 15 L. He remains afebrile, heart rate 113, respiratory rate 24, blood pressure 117/72. No repeat blood work today. Patient states he slept well last night but he was having cramps yesterday most likely from diuresing. He did have 3000 ml urine out and Lasix decreased to once daily. Patient has less lower extremity edema and lower extremity ultrasound bilaterally ordered. Patient was complaining of back discomfort for which baclofen will be ordered. Repeat blood work and chest x-ray for tomorrow. Chest x-ray from yesterday reveals coarse basilar infiltrates unchanged from prior study. 02/27: Patient is now on 15 L nonrebreather, off AirVo.. His pulse ox is 95%. He's been afebrile, heart rate 114, respiratory rate 25, blood pressure 130/84. Patient has decreased lower extremity edema will be continued on Lasix 40 mg IV daily. He had a repeat Covid test done yesterday which was positive. Repeat chest x-ray reveals diffuse bilateral lung infiltrates stable. Venous Doppler bilateral lower extremity negative for DVT. REVIEW OF SYSTEMS: Constitutional: Denies fever, chills, night sweats. No weight change. positive for weakness, reports fatigue no lethargy. Reports daytime sleepiness. HEENT: No headache. No nasal drainage or congestion. No epistaxis. Reports sore throat. Lungs: Continued shortness of breath with oxygen therapy slowly improving, positive for cough, positive for sputum production. positive for wheezing. Reports dyspnea with minimal activity. Cardiovascular: No chest pain, no lower extremity edema. No palpitations. No paroxysmal nocturnal dyspnea. No orthopnea. No lightheadedness or dizziness. No syncopal episodes. Abdominal: denies abdominal pain. No nausea, vomiting. Denies diarrhea. No constipation. No bloody or tarry stools. Reports loss of appetite. Genitourinary: No dysuria, increased frequency, urgency. No urinary retention. Musculoskeletal: positive for myalgias. positive for generalized muscle weakness, no gait dysfunction, no frequent falls. Reports back pain. No neck pain. Integumentary: No wounds, no lesions. No rash or pruritus. No unusual bruising. Neurologic: No aphasia. No facial droop. No change in mentation. No head injury. No headache. No paralysis. No paresthesia. Psychiatric: No depression. No anxiety. Endocrine: No abnormal blood sugars. PHYSICAL EXAMINATION: General: 56-year-old male sitting in recliner no acute respiratory distress at rest. Patient appears to be more comfortable. HEENT: Head is atraumatic, normocephalic, pupils were equal round, sclera nonicteric, conjunctivae were pale. Neck: Supple, no JVP, normal carotid upstroke bilaterally, no lymphadenopathy. Chest: Decreased breath sounds at the bases, few rhonchi, moderate expiratory wheezes, no chest wall tenderness, no intercostal retractions at rest. Heart: First heart sound is normal, second heart sounds normal, there is no gallop or murmur. Abdomen: Soft, nontender, nondistended, positive bowel sounds, no hepatosplenomegaly. Extremities: There is 1+ edema no calf tenderness DP +2 bilaterally. Neurologic examination: Patient is awake alert and oriented X 3, cranial nerves II-12 appear grossly intact. ASSESSMENT AND PLAN: 1. Acute hypoxemic respiratory failure due to bilateral patchy interstitial pneumonia due to COVID-19 pneumonia and sepsis (POA). Continue patient on Lovenox 40 mg subcu daily, Decadron 6 mg orally every day, Vitamin C 1000 mg orally once every day, zinc 220 mg once every day, vitamin D 1000 units once every day, completed course of Baricitinib, continue oxygen therapy on AirVo and nonrebreather. Continue Lasix 40 mg daily. 2. Bilateral Covid pneumonia with ARDS. Continue with Airvo and nonrebreather, continue dexamethasone 6 mg orally every day, continue with supportive care. 3. Mild non-anion gap metabolic acidosis. Resolved. 4. Moderate protein calorie malnutrition secondary to decreased appetite and difficulty eating with oxygen mask. Continue Ensure 3 times daily. 5. Acute drug-induced hepatitis. Monitor the patient CMP in the next 24 hours. 6. DVT prophylaxis. Continue Lovenox 40 mg subcutaneously every 24 hours 7. GERD and GI prophylaxis. Continue patient on Protonix 40 mg oral twice daily. 8. Patient is full code. 9. Guarded prognosis. DISCHARGE PLAN Home most likely with home care and oxygen therapy. Impression and plan of care have been directed as dictated by the signing physician. Viridiana Baker nurse practitioner acting as scribe for signing physician. Objective - Vital Signs Vital signs: Vital Signs Temp 98 F 02/26/21 21:00 Pulse 114 H 02/27/21 05:00 Resp 25 H 02/27/21 05:00 BP 130/84 02/27/21 05:00 Pulse Ox 95 02/27/21 08:03 Intake & Output 02/26/21 02/27/21 02/27/21 18:59 06:59 18:59 Intake Total 240 Output Total 1600 1375 Balance -1360 -1375 Intake: Oral 240 Output: Urine 1600 1375 Uretheral (Cheek) 1300 900 Other: Voiding Method Indwelling Catheter Indwelling Catheter - Labs CBC & Chem 7: 02/25/21 06:02 02/25/21 06:02 Labs: Abnormal Lab Results - Last 24 Hours (Table) 02/26/21 Range/Units 16:40 Coronavirus (PCR) Detected A (Not Detectd)
[2021-02-27] MEDS: ALPRAZolam 0.25 MG TAB PO PRN (09:09)
[2021-02-27] MEDS: ENOXAPARIN 40 MG/0.4 ML SYRINGE SQ SCH (09:09)
[2021-02-27] MEDS: ZINC SULFATE 220 MG CAP PO SCH (09:10)
[2021-02-27] MEDS: MULTIVITAMINS, THERA 1 EACH TAB PO SCH (09:10)
[2021-02-27] MEDS: FUROSEMIDE 10 MG/ML 4 ML VIAL IV SCH (09:10)
[2021-02-27] MEDS: dexAMETHasone 2 MG TAB PO SCH (09:10)
[2021-02-27] MEDS: ASCORBIC ACID 500 MG TAB PO SCH (09:10)
[2021-02-27] MEDS: guaiFENesin 600 MG TABLET.ER PO SCH ×2 (09:10→20:50)
[2021-02-27] MEDS: POTASSIUM CHLORIDE ER 20 MEQ TAB.ER PO SCH (09:10)
[2021-02-27] MEDS: BACLOFEN 10 MG TAB PO PRN ×2 (09:12→19:50)
[2021-02-27 10:44] LABS: African American GFR (CKD) >90 (>60 ml/min/1.73 sqM); Anion Gap 7 mmol/L; Blood Urea Nitrogen 37 mg/dL (9-20); Calcium 9.2 mg/dL (8.4-10.2); Carbon Dioxide 29 mmol/L (22-30); Chloride 98 mmol/L (98-107); Glucose 131 mg/dL (74-99); Non-African American GFR(CKD) >90 (>60 ml/min/1.73 sqM); Sodium 134 mmol/L (137-145)
--- NOTE | 2021-02-27 11:08 | P.PN ---
Subjective Progress Note Date: 02/27/21 02/26/2021, the patient is essentially the same. He slept all night on a high flow oxygen with a 40 L with an FiO2 of 50%. Earlier this morning as he was trying to get up, he desaturated and he subsequently had to put his 100% nonrebreather facemask on. It took them approximately an hour to build his oxygen back to above 90%. He is still having shortness of breath even at rest. Limited cough. No significant sputum production. He remains on Decadron 6 mg by mouth daily. Is also on Lovenox 40 mg subcu for DVT prophylaxis. His inflammatory markers were gradually improving. His LDH was down to 1039. LFTs are also improving. He is tolerating his diet. Is awake and alert. His been hospital for more than 3 weeks for COVID associated pneumonia. The patient is also producing excellent urine output. He is negative fluid balance of 1.8 L over the past 24 hours and the patient was started on Lasix and currently is taking 40 mg IV push daily Lasix. The inflammatory marker from today shows an LDH level of 1039 with a CRP of 4.3. The patient also was given Ambien overnight and the patient had an excellent night's sleep 02/27/2021, the patient is breathing is more labored this morning. Overnight, the patient was able to get himself off the high flow oxygen and he was using nonrebreather facemask and 100% FiO2 and he did that for several hours. As he got up to the bathroom, he became more short of breath. Currently is on a combination of both high flow oxygen at 40 L with an FiO2 of 50% and the patient is also on a nonrebreather facemask. He is a bit discouraged as the patient desaturated and he became quite short of breath. He was given Xanax. He is feeling better for now. His chest x-ray shows stable bilateral pulmonary infiltrates, worse on the left and I do not see any interval international exchange coordinator the past 1 week at least. He was given a dose of Lasix yesterday and he producing adequate amount of urine output. His sleep was good as the patient was getting Ambien overnight. He is also taking Xanax on an as needed basis. Labs from today is showing normal electrolytes, BUN of 37 with a creatinine of 0.86. Repeat Covid test was still positive. Objective - Vital Signs Vital signs: Vital Signs Temp 98.1 F 02/27/21 09:00 Pulse 115 H 02/27/21 09:00 Resp 22 02/27/21 09:00 BP 130/84 02/27/21 05:00 Pulse Ox 92 L 02/27/21 09:00 Intake & Output 02/26/21 02/27/21 02/27/21 18:59 06:59 18:59 Intake Total 240 318 Output Total 1600 1375 Balance -1360 -1375 318 Intake: Oral 240 318 Output: Urine 1600 1375 Uretheral (Cheek) 1300 900 Other: Voiding Method Indwelling Catheter Indwelling Catheter - Exam Gen. appearance the patient is breathing comfortably Currently is on Airvo 40 L an FiO2 of 50%, Head exam was generally normal. There was no scleral icterus or corneal arcus. Mucous membranes were moist. Neck was supple and without jugular venous distension, thyromegaly, or carotid bruits. Carotids were easily palpable bilaterally. There was no adenopathy. Lungs sounds are diminished in the patient's crackles in the mid and lower lung [place] bilaterally Cardiac exam revealed the PMI to be normally situated and sized. The rhythm was regular and no extrasystoles were noted during several minutes of auscultation. The first and second heart sounds were normal and physiologic splitting of the second heart sound was noted. There were no murmurs, rubs, clicks, or gallops. Abdominal exam revealed normal bowel sounds. The abdomen was soft, non-tender, and without masses, organomegaly, or appreciable enlargement of the abdominal aorta. Examination of the extremities revealed easily palpable radial, femoral and pedal pulses. There was no cyanosis, clubbing or edema. Examination of the skin revealed no evidence of significant rashes, suspicious appearing nevi or other concerning lesions. Neurologically, the patient is awake and alert and the patient does not have any focal neurological deficit. Cranial nerves are essentially intact. - Labs CBC & Chem 7: 02/25/21 06:02 02/27/21 08:24 Labs: Abnormal Lab Results - Last 24 Hours (Table) 02/26/21 02/27/21 Range/Units 16:40 08:24 Sodium 134 L (137-145) mmol/L BUN 37 H (9-20) mg/dL Glucose 131 H (74-99) mg/dL Coronavirus (PCR) Detected A (Not Detectd) Assessment and Plan Plan: 1 acute COVID 19 related pneumonia with secondary respiratory failure. Currently on airvo 40 liters and 50% Fio2. Chest x-ray showing diffuse bilateral pulmonary infiltrates consistent with COVID 19 related pneumonia. No interval worsening in his chest x-ray findings. The inflammatory markers including the LDH and CRP are being monitored. D-dimer is also lower. The patient is still on Decadron 6 mg and the patient has completed Baricitinib. The patient remains on Lovenox for DVT prophylaxis. Chest x-ray findings are stable. , Since yesterday, the patient had some worsening shortness of breath and some setback as the patient got himself off the high flow oxygen. Currently is back on 40 L with an FiO2 of 50% along with that he is using 100% nonrebreather facemask and the patient is also demonstrating a stable chest x- ray. He is on anticoagulation. He is on Decadron. Repeat COVID 19 testing was again positive. 2 shortness of breath secondary to above 3 acute hypoxic respiratory failure secondary to above 4 hypertension Plan Continue Airvo 40 L an FiO2 of 50% with 100% on a facemask Continue Decadron 6 mg every 24 hours Completed Baricitinib per protocol Lovenox 40 mg subcu for DVT prophylaxis Multivitamin cocktail for COVID 19 related infections Ambien 10 mg bedtime for sleep Lasix to 40 mg once a day IV We'll continue to follow. We'll make further recommendations based on his progress.
[2021-02-27] MEDS: CHOLECALCIFEROL 25 MCG (1000 IU) TABLET PO SCH (11:33)
[2021-02-27] MEDS: ZOLPIDEM 5 MG TAB PO PRN (22:51)
[2021-02-28] MEDS: ALPRAZolam 0.25 MG TAB PO PRN (06:22)
[2021-02-28] MEDS: PANTOPRAZOLE 40 MG TABLET PO SCH ×2 (06:22→19:09)
[2021-02-28] MEDS: BACLOFEN 10 MG TAB PO PRN ×2 (06:22→15:28)
[2021-02-28] MEDS: ASCORBIC ACID 500 MG TAB PO SCH (09:09)
[2021-02-28] MEDS: MULTIVITAMINS, THERA 1 EACH TAB PO SCH (09:09)
[2021-02-28] MEDS: ENOXAPARIN 40 MG/0.4 ML SYRINGE SQ SCH (09:09)
[2021-02-28] MEDS: FUROSEMIDE 10 MG/ML 4 ML VIAL IV SCH (09:09)
[2021-02-28] MEDS: guaiFENesin 600 MG TABLET.ER PO SCH ×2 (09:10→20:04)
[2021-02-28] MEDS: dexAMETHasone 2 MG TAB PO SCH (09:10)
[2021-02-28] MEDS: CHOLECALCIFEROL 25 MCG (1000 IU) TABLET PO SCH (09:10)
[2021-02-28] MEDS: ZINC SULFATE 220 MG CAP PO SCH (09:10)
[2021-02-28] MEDS: POTASSIUM CHLORIDE ER 20 MEQ TAB.ER PO SCH (09:10)
--- NOTE | 2021-02-28 13:15 | P.PN ---
Subjective Progress Note Date: 02/28/21 HISTORY OF PRESENT ILLNESS: This is a 56-year-old male with a past medical history significant for hypertension and hypertensive cardiovascular disease, hyperlipidemia, history of tobacco use and dependence, presented to the emergency department at [facility] with increased coughing and increased shortness breath that started last and has been getting worse over the last few days, yesterday he was extremely short of breath and his oxygen saturation was in the low 70s, his tried to get him to the ER but eventually called 911 and the patient was brought into the ER at [facility] where he had a chest x-ray that did show evidence of bilateral patchy infiltrate suggestive of Covid pneumonia, his COVID-19 PCR was positive, patient was started on nonrebreather, and later on was seen in consultation by pulmonary medicine and he was placed on Airvo and was started on Bacitinib 4 mg po daily and the patient was admitted to the hospital for further evaluation and treatment. 02/05: A shunt is currently on AirVol. He has complained of feeling tired and complaining of gastric reflux. Protonix will be increased to 40 mg IV push twice daily. Patient is been seen by pulmonary medicine and started on Baricitinib, continued on dexamethasone 6 mg twice daily, Lovenox 40 mg daily. He has been afebrile, heart rate 92, blood pressure 137/86, pulse ox 97%. Repeat blood work reveals WBC 2.2, d-dimer 3.33, blood sugar 143. LDH 735, C-r eactive protein 15.5. Chest x-ray reveals chronic emphysematous and pulmonary fibrotic changes with bilateral multifocal reticular nodular opacities consistent with COVID-19. Perhaps slight improvement in the right lung base. Ultrasound of bilateral lower extremities negative for DVT. 02/06: Last evening, patient was transferred into the intensive care unit as he was on 15 L nonrebreather was transitioned over to AirVo 60 L 90% with nonrebreather on top. Pulse ox is currently running 84-87%. He has been afebrile, heart rate in the 80s and 90s, respiratory rate 29, blood pressure 131/82. Patient is requesting Cepacol lozenges and nasal spray added. Ensure 3 times daily also added, patient has decreased appetite and limited oral intake. Repeat blood work reveals WBC 4.9, hemoglobin 13.6. Platelet count 381. D- dimer 2.15. LDH 1685. C-reactive protein 5.6. Repeat chest x-ray revealed continue his Covid infiltrate superimposed on bollous emphysema. Slight improvement in aeration in the right upper lobe. Patient is continued on dexamethasone, Lovenox, vitamin supplements and Baricitinib. 02/07:patient remains in the intensive care unit. He is on nonrebreather mask as well as high flow AirVo with O2 at 60 L, FiO2 90%. patient remains afebrile, heart rate in the 70s, respiratory rate 26, blood pressure 127/79, pulse ox 86- 88%, pulse ox drops in the low 80s when patient ate's. He is on ensure 3 times daily. Patient is complaining of some cough and back pain when he coughs. He is less fatigued today. 02/08: Patient remains in intensive care unit currently on nonrebreather, as well as a high flow airflow oxygen still borderline at 89%, patient is eating his protein, hysterectomy 8 his breakfast, he has no chest pain at this time he continues to be extreme short of breath, he has no abdominal pain, he had lost some of the states, he has no headache, he has no hemoptysis, he has no pleurisy, he has no edema. 02/09: Patient sitting up in a chair his feeling a bit better. He continues to be on nonrebreather along with airflow 60 L, he denies any chest pain, his continues to be somewhat short of breath, he continues to struggle with breathing, has no abdominal pain, he had a good bowel movement yesterday, he is tolerating his food, patient is stable at this point in time, he will stay in the intensive care unit due to his oxygen requirement, chest x-ray showed bilateral diffuse infiltrate suggestive of Covid pneumonia, he continues to be on Decadron 6 mg orally twice every day, we'll continue conservative management continue supportive care continue Baricitinib daily for a total of 14 doses today is 08/10 02/10: Patient is feeling better today he continues to be on airVO and NRB, continues to require a lot of oxygen, sitting up and eating his breakfast, he has no chest pain, no pleurisy, he does competitive achiness in the back of his legs, he is current;y on Baricitinib Day #6 out of 14. 02/11: Patient is seen today in the ICU. He is on AirVo had 90% 60 L and nonrebreather is used as needed. Patient is more mobile in his room. He has been afebrile, heart rate 81 and 96, blood pressure 127/72 area pulse ox 87-95%. Repeat blood work reveals WBC 15.5. Electrolytes normal. BUN 27 creatinine 0.84. Blood sugar 145. Liver function tests were normal. Patient is on regular diet and protein supplements. He is continued on Baricitinib, oral dexamethasone, Lovenox and supplements. 02/12: Patient remains in intensive care unit. He is on AirVo plus nonrebreather but he is keeping NRB in place except for oral intake. He has b een afebrile, heart rate 89, respiratory rate 23-30, blood pressure 132/75, pulse ox 90%. CTA of the chest showed no pulmonary embolism. Small pericardial effusion. Extensive emphysematous changes and/or pulmonary fibrosis. Patient is on regular diet and protein supplements. No vomiting or diarrhea. WBC 14.2. Creatinine 0.76. Blood sugar 142. ALT 71. 02/13: Patient is currently on AirVo and nonrebreather with pulse ox 82-96%. He has been afebrile, heart rate in the 90s, respiratory rate 19-36. Blood pressure 132/84. WBC 17.9. Sodium 134. Blood sugar 125. Patient is continued on supplements, Baricitinib, dexamethasone and Lovenox. 02/14: Patient remains in the intensive care unit on airvo and nonrebreather. He states he was up in a chair for a little while yesterday. He still has coughing, no fever or chills. He is taking protein supplement. Patient has been afebrile, heart rate 97, blood pressure 139/88, respiratory rate 24, pulse ox 92%. WBC 17.6. Sodium 131. Patient is continued on supplements, Baricitinib, dexamethasone and Lovenox. 02/15: Patient remains in the intensive care unit on AirVo and nonrebreather with pulse ox of 94%. Patient's been afebrile, heart rate 86, respiratory rate 22, blood pressure 120/75. Review blood work reveals WBC 21. AST 82, ALT 229. Sodium 131, potassium 4.8, creatinine 0.88. Patient is complaining of oral pain, grinding his teeth. Patient is continued on supplements, Baricitinib, dexamethasone and Lovenox. 02/16: Patient moved out of the ICU, his currently in the telemetry unit, his monitor showing sinus tachycardia with PACs, he continues to be on airVo and nonrebreather his oxygen is about 93%, it does drop to 88-89% with activity and exertion, he continues to be generally weak, he has no chest pain at this time, he has no pleurisy, there is no hemoptysis, he has no abdominal pain, nausea or vomiting, he seems to be tolerating her treatment very well. 02/17: Patient is about the same he continues to be in a telemetry unit, he continues to have sinus tachycardia, he continues to be on same oxygen he continues to be about the same, he is currently maintained on Decadron as well as Baricitinib for a total of 14 doses, we will continue to monitor his liver function tests, and as he continues to have transaminitis., Patient denies any chest pain at this time he has no abdominal pain, nausea vomiting or diarrhea. 02/18: Patient is seen sitting up in a chair today. He is on AirVO nonrebreather with pulse ox 92%. His been afebrile, heart rate 112, blood pressure 128/73. Patient is currently on dexamethasone, Lovenox and vitamin supplements. He has completed his course of Baricitinib. Repeat blood work reveals WBC 31.2, hemoglobin 15, platelet count 601. Sodium 131, potassium 4.7, chloride 97, CO2 25, BUN 32 creatinine 0.8. Blood sugars are running between 117 and 130s. AST is 198, ALT 875. Alkaline phosphatase 82. 02/19: Patient is currently on AirVo only with pulse ox of 8792%. He has been afebrile, heart rate 107, blood pressure 114/77. Have any nausea vomiting, no diarrhea. He states he is feeling better from yesterday. No repeat chest x-ray is scheduled for today. Repeat blood work will be ordered for tomorrow. Patient is been monitored closely and followed by the pulmonary service since admission. Currently he is on 60 L oxygen via high flow nasal cannula with FiO2 of 68%. Slightly tachypneic and got short of breath when he talks. Labs reviewed WBC 23k, d-dimer 0.75, sodium slightly low 129, potassium slightly high at 5.3, liver enzymes slightly elevated, lactate dehydrogenase is elevated 1114. Poorcalcitonin is 0.19, was 0.08. Chest x-ray showing COPD with patchy bilateral Covid pneumonia. Patient currently kept on dexamethasone 6 mg daily, vitamin C, vitamin D and zinc. Also he is on Pepcid and Lovenox. 02/22/2021 Patient reports some improvement in his shortness of breath. Today following a T-max trying to wean him down with lowering oxygen requirement 60 down to 40 L per minute with FiO2 68 down to 50% this morning. Patient is to cardiac and more tachypneic during these attempts for now, we will keep monitoring. However he does not report any worsening dyspnea. Sodium improved to 134, potassium down to 5.0. He remains on dexamethasone and multiple vitamins. Also he is on Lovenox and Pepcid We will keep monitoring 02/23/2021 Patient today show significant improvement with drop of oxygen requirement down to 15 L/m, patient reports more easier breathing. No much coughing. WBC 20 2K, d-dimer is stable at 0.7. Potassium normal at 4.3. Lactate dehydrogenase still elevated but stable at 1023. Patient remains on the same treatment of dexamethasone, multiple vitamins, Lovenox and Pepcid 02/24/2021 Patient awake and alert, he feels generally weak, significantly dyspneic while talking. Looks more tired and lethargic. Patient is hypoxic requiring 15 L/m nonrebreather and interval of 40 L at 50%, he is tachypneic and tachycardic. Heart rate around 119. Chest x-ray: Chronic parenchymal changes with left mid lung and bibasilar opacities consistent with known covid 19 infection. No significant change. Patient remains on vitamin C, D and zinc, dexamethasone, Lovenox and Pepcid 02/25: Patient is on nonrebreather and AirVo pulse ox of 91%. He's been afebrile, heart rate 118, blood pressure 1 3472. Patient complains of feeling tired. Repeat chest x-ray ordered, Lasix at 40 mg IV every 12 hours, Mucinex ordered. WBC 20.1. Magnesium 2.5. LDH 1039, C-reactive protein 4.3, pro-calcitonin 0.16. Patient is continued on dexamethasone, Lovenox and vitamin supplements. 02/26: Pulse ox is running 89 and 99% with nonrebreather at 15 L and high flow nasal cannula at 15 L. He remains afebrile, heart rate 113, respiratory rate 24, blood pressure 117/72. No repeat blood work today. Patient states he slept well last night but he was having cramps yesterday most likely from diuresing. He did have 3000 ml urine out and Lasix decreased to once daily. Patient has less lower extremity edema and lower extremity ultrasound bilaterally ordered. Patient was complaining of back discomfort for which baclofen will be ordered. Repeat blood work and chest x-ray for tomorrow. Chest x-ray from yesterday reveals coarse basilar infiltrates unchanged from prior study. 02/27: Patient is now on 15 L nonrebreather, off AirVo.. His pulse ox is 95%. He's been afebrile, heart rate 114, respiratory rate 25, blood pressure 130/84. Patient has decreased lower extremity edema will be continued on Lasix 40 mg IV daily. He had a repeat Covid test done yesterday which was positive. Repeat chest x-ray reveals diffuse bilateral lung infiltrates stable. Venous Doppler bilateral lower extremity negative for DVT. 02/28: Patient is seen in follow-up today. He is resting and recliner. He has been afebrile, heart rate 110, blood pressure 122/72, respiratory rate 18-24, pulse ox 97% on high flow nasal cannula and AirVo. Repeat blood work reveals sodium 134, potassium 5.0, chloride 98, CO2 29, BUN 37 creatinine 0.86. Blood sugar 131. Patient is continued on vitamin supplements, dexamethasone, Lovenox. REVIEW OF SYSTEMS: Constitutional: Denies fever, chills, night sweats. No weight change. positive for weakness, reports fatigue no lethargy. Reports daytime sleepiness. HEENT: No headache. No nasal drainage or congestion. No epistaxis. Reports sore throat. Lungs: Continued shortness of breath with oxygen therapy slowly improving, positive for cough, positive for sputum production. positive for wheezing. Reports dyspnea with minimal activity. Cardiovascular: No chest pain, no lower extremity edema. No palpitations. No paroxysmal nocturnal dyspnea. No orthopnea. No lightheadedness or dizziness. No syncopal episodes. Abdominal: denies abdominal pain. No nausea, vomiting. Denies diarrhea. No constipation. No bloody or tarry stools. Reports loss of appetite. Genitourinary: No dysuria, increased frequency, urgency. No urinary retention. Musculoskeletal: positive for myalgias. positive for generalized muscle weakness, no gait dysfunction, no frequent falls. Reports back pain. No neck pain. Integumentary: No wounds, no lesions. No rash or pruritus. No unusual bruising. Neurologic: No aphasia. No facial droop. No change in mentation. No head injury. No headache. No paralysis. No paresthesia. Psychiatric: No depression. No anxiety. Endocrine: Mildly abnormal blood sugars. PHYSICAL EXAMINATION: General: 56-year-old male sitting in recliner no acute respiratory distress at rest. Patient appears to be more comfortable. HEENT: Head is atraumatic, normocephalic, pupils were equal round, sclera nonicteric, conjunctivae were pale. Neck: Supple, no JVP, normal carotid upstroke bilaterally, no lymphadenopathy. Chest: Decreased breath sounds at the bases, few rhonchi, moderate expiratory wheezes, no chest wall tenderness, no intercostal retractions at rest. Heart: First heart sound is normal, second heart sounds normal, there is no gallop or murmur. Abdomen: Soft, nontender, nondistended, positive bowel sounds, no hepatosplenomegaly. Extremities: There is 1+ edema no calf tenderness DP +2 bilaterally. Neurologic examination: Patient is awake alert and oriented X 3, cranial nerves II-12 appear grossly intact. ASSESSMENT AND PLAN: 1. Acute hypoxemic respiratory failure due to bilateral patchy interstitial pneumonia due to COVID-19 pneumonia and sepsis (POA). Continue patient on Lovenox 40 mg subcu daily, Decadron 6 mg orally every day, Vitamin C 1000 mg orally once every day, zinc 220 mg once every day, vitamin D 1000 units once every day, completed course of Baricitinib, continue oxygen therapy on AirVo and nonrebreather. Continue Lasix 40 mg IV push daily. 2. Bilateral Covid pneumonia with ARDS. Continue with Airvo and nonrebreather, continue dexamethasone 6 mg orally every day, continue with supportive care. 3. Mild non-anion gap metabolic acidosis. Resolved. 4. Moderate protein calorie malnutrition secondary to decreased appetite and difficulty eating with oxygen mask. Continue Ensure 3 times daily. 5. Acute drug-induced hepatitis. Monitor the patient CMP in the next 24 hours. 6. DVT prophylaxis. Continue Lovenox 40 mg subcutaneously every 24 hours 7. GERD and GI prophylaxis. Continue patient on Protonix 40 mg oral twice da erin. 8. Patient is full code. 9. Guarded prognosis. DISCHARGE PLAN Home most likely with home care and oxygen therapy. Impression and plan of care have been directed as dictated by the signing physician. Viridiana Baker nurse practitioner acting as scribe for signing ph ysician. Objective - Vital Signs Vital signs: Vital Signs Temp 97.8 F 02/28/21 05:00 Pulse 110 H 02/28/21 05:00 Resp 18 02/28/21 05:00 BP 122/72 02/28/21 05:00 Pulse Ox 97 02/28/21 05:00 Intake & Output 02/27/21 02/28/21 02/28/21 18:59 06:59 18:59 Intake Total 1118 Output Total 2400 500 Balance -1282 -500 Weight 80.1 kg Intake: Oral 1118 Output: Urine 2400 500 Uretheral (Cheek) 400 Other: Voiding Method Indwelling Catheter Indwelling Catheter - Labs CBC & Chem 7: 02/25/21 06:02 02/27/21 08:24 Labs: Abnormal Lab Results - Last 24 Hours (Table) 02/27/21 Range/Units 08:24 Sodium 134 L (137-145) mmol/L BUN 37 H (9-20) mg/dL Glucose 131 H (74-99) mg/dL
--- NOTE | 2021-02-28 18:37 | P.PN ---
Subjective Progress Note Date: 02/28/21 Principal diagnosis: Dyspnea On 02/28/2021 patient seen in follow-up on selective care unit, is currently on Airvo at 40 L and FiO2 of 50% in addition to nonrebreather mask, he is maintaining O2 saturations between 90-94%, she is currently sitting up in the chair, does not appear to be in acute distress, although has exertional dyspnea and conversational dyspnea. Denies any fever or chills, his last chest x-ray was yesterday showed diffuse bilateral lung infiltrates stable in appearance. patient continues on Decadron 6 blood gram daily, Lovenox 40 mg daily, he continues on daily dose of Lasix 40 mg daily, no new labs today. Yesterday's labs have been reviewed, his inflammatory markers overall have been improving through the course of his hospitalization. Last d-dimer was 1.15. His pro calcitonin level has been negative 2. His electrolytes were unremarkable on y ester's labs, BUN was 37 and creatinine was 0.86. Objective - Vital Signs Vital signs: Vital Signs Temp 97.6 F 02/28/21 12:44 Pulse 106 H 02/28/21 12:44 Resp 18 02/28/21 12:44 BP 113/69 02/28/21 12:44 Pulse Ox 94 L 02/28/21 12:44 Intake & Output 02/27/21 02/28/21 02/28/21 18:59 06:59 18:59 Intake Total 1118 600 Output Total 2400 600 Balance -1282 0 Weight 80.1 kg Intake: Oral 1118 600 Output: Urine 2400 600 Uretheral (Cheek) 400 Other: Voiding Method Indwelling Catheter Indwelling Catheter Indwelling Catheter - Exam GENERAL EXAM: Alert, 56-year-old white male, on Airvo at 40 L of FiO2 of 50% in addition to nonrebreather mask comfortable in no apparent distress. HEAD: Normocephalic/atraumatic. EYES: Normal reaction of pupils, equal size. Conjunctiva pink, sclera white. NOSE: Clear with pink turbinates. THROAT: No erythema or exudates. NECK: No masses, no JVD, no thyroid enlargement, no adenopathy. CHEST: No chest wall deformity. Symmetrical expansion. LUNGS: Equal air entry with diffuse crackles CVS: Regular rate and rhythm, normal S1 and S2, no gallops, no murmurs, no rubs ABDOMEN: Soft, nontender. No hepatosplenomegaly, normal bowel sounds, no guarding or rigidity. EXTREMITIES: No clubbing, no edema, no cyanosis, 2+ pulses and upper and lower extremities. MUSCULOSKELETAL: Muscle strength and tone normal. SPINE: No scoliosis or deformity SKIN: No rashes CENTRAL NERVOUS SYSTEM: Alert and oriented -3. No focal deficits, tone is normal in all 4 extremities. PSYCHIATRIC: Alert and oriented -3. Appropriate affect. Intact judgment and insight. - Labs CBC & Chem 7: 02/25/21 06:02 02/27/21 08:24 Assessment and Plan Plan: Assessment: 1 acute COVID 19 related pneumonia with secondary respiratory failure. Currently on airvo 40 liters and 50% Fio2. Chest x-ray showing diffuse bilateral pulmonary infiltrates consistent with COVID 19 related pneumonia. No interval worsening in his chest x-ray findings. The inflammatory markers including the LDH and CRP are being monitored. D-dimer is also lower. The patient is still on Decadron 6 mg and the patient has completed Baricitinib. The patient remains on Lovenox for DVT prophylaxis. Chest x-ray findings are stable. , Since yesterday, the patient had some worsening shortness of breath and some setback as the patient got himself off the high flow oxygen. Currently is back on 40 L with an FiO2 of 50% along with that he is using 100% nonrebreather facemask and the patient is also demonstrating a stable chest x- ray. He is on anticoagulation. He is on Decadron. Repeat COVID 19 testing was again positive. 2 shortness of breath secondary to above 3 acute hypoxic respiratory failure secondary to above 4 hypertension Plan: Remains on Airvo and nonrebreather mask no worsening dyspnea Continue current medical treatment Continue Decadron, Patient has completed Baricitinib Continue current dose Lovenox Continue multivitamin cocktail Encourage deep breathing and coughing Continue Lasix IV for 1 more day Follow-up basic labs including CBC and CMP Follow-up LDH and CRP d-dimer Time with Patient: Less than 30
[2021-03-01] MEDS: BACLOFEN 10 MG TAB PO PRN ×2 (00:42→11:48)
[2021-03-01] MEDS: PANTOPRAZOLE 40 MG TABLET PO SCH ×2 (06:20→16:16)
--- NOTE | 2021-03-01 08:43 | P.PN ---
Subjective Progress Note Date: 03/01/21 HISTORY OF PRESENT ILLNESS: This is a 56-year-old male with a past medical history significant for hypertension and hypertensive cardiovascular disease, hyperlipidemia, history of tobacco use and dependence, presented to the emergency department at [facility] with increased coughing and increased shortness breath that started last and has been getting worse over the last few days, yesterday he was extremely short of breath and his oxygen saturation was in the low 70s, his tried to get him to the ER but eventually called 911 and the patient was brought into the ER at [facility] where he had a chest x-ray that did show evidence of bilateral patchy infiltrate suggestive of Covid pneumonia, his COVID-19 PCR was positive, patient was started on nonrebreather, and later on was seen in consultation by pulmonary medicine and he was placed on Airvo and was started on Bacitinib 4 mg po daily and the patient was admitted to the hospital for further evaluation and treatment. 02/05: A shunt is currently on AirVol. He has complained of feeling tired and complaining of gastric reflux. Protonix will be increased to 40 mg IV push twice daily. Patient is been seen by pulmonary medicine and started on Baricitinib, continued on dexamethasone 6 mg twice daily, Lovenox 40 mg daily. He has been afebrile, heart rate 92, blood pressure 137/86, pulse ox 97%. Repeat blood work reveals WBC 2.2, d-dimer 3.33, blood sugar 143. LDH 735, C-r eactive protein 15.5. Chest x-ray reveals chronic emphysematous and pulmonary fibrotic changes with bilateral multifocal reticular nodular opacities consistent with COVID-19. Perhaps slight improvement in the right lung base. Ultrasound of bilateral lower extremities negative for DVT. 02/06: Last evening, patient was transferred into the intensive care unit as he was on 15 L nonrebreather was transitioned over to AirVo 60 L 90% with nonrebreather on top. Pulse ox is currently running 84-87%. He has been afebrile, heart rate in the 80s and 90s, respiratory rate 29, blood pressure 131/82. Patient is requesting Cepacol lozenges and nasal spray added. Ensure 3 times daily also added, patient has decreased appetite and limited oral intake. Repeat blood work reveals WBC 4.9, hemoglobin 13.6. Platelet count 381. D- dimer 2.15. LDH 1685. C-reactive protein 5.6. Repeat chest x-ray revealed continue his Covid infiltrate superimposed on bollous emphysema. Slight improvement in aeration in the right upper lobe. Patient is continued on dexamethasone, Lovenox, vitamin supplements and Baricitinib. 02/07:patient remains in the intensive care unit. He is on nonrebreather mask as well as high flow AirVo with O2 at 60 L, FiO2 90%. patient remains afebrile, heart rate in the 70s, respiratory rate 26, blood pressure 127/79, pulse ox 86- 88%, pulse ox drops in the low 80s when patient ate's. He is on ensure 3 times daily. Patient is complaining of some cough and back pain when he coughs. He is less fatigued today. 02/08: Patient remains in intensive care unit currently on nonrebreather, as well as a high flow airflow oxygen still borderline at 89%, patient is eating his protein, hysterectomy 8 his breakfast, he has no chest pain at this time he continues to be extreme short of breath, he has no abdominal pain, he had lost some of the states, he has no headache, he has no hemoptysis, he has no pleurisy, he has no edema. 02/09: Patient sitting up in a chair his feeling a bit better. He continues to be on nonrebreather along with airflow 60 L, he denies any chest pain, his continues to be somewhat short of breath, he continues to struggle with breathing, has no abdominal pain, he had a good bowel movement yesterday, he is tolerating his food, patient is stable at this point in time, he will stay in the intensive care unit due to his oxygen requirement, chest x-ray showed bilateral diffuse infiltrate suggestive of Covid pneumonia, he continues to be on Decadron 6 mg orally twice every day, we'll continue conservative management continue supportive care continue Baricitinib daily for a total of 14 doses today is 08/10 02/10: Patient is feeling better today he continues to be on airVO and NRB, continues to require a lot of oxygen, sitting up and eating his breakfast, he has no chest pain, no pleurisy, he does competitive achiness in the back of his legs, he is current;y on Baricitinib Day #6 out of 14. 02/11: Patient is seen today in the ICU. He is on AirVo had 90% 60 L and nonrebreather is used as needed. Patient is more mobile in his room. He has been afebrile, heart rate 81 and 96, blood pressure 127/72 area pulse ox 87-95%. Repeat blood work reveals WBC 15.5. Electrolytes normal. BUN 27 creatinine 0.84. Blood sugar 145. Liver function tests were normal. Patient is on regular diet and protein supplements. He is continued on Baricitinib, oral dexamethasone, Lovenox and supplements. 02/12: Patient remains in intensive care unit. He is on AirVo plus nonrebreather but he is keeping NRB in place except for oral intake. He has b een afebrile, heart rate 89, respiratory rate 23-30, blood pressure 132/75, pulse ox 90%. CTA of the chest showed no pulmonary embolism. Small pericardial effusion. Extensive emphysematous changes and/or pulmonary fibrosis. Patient is on regular diet and protein supplements. No vomiting or diarrhea. WBC 14.2. Creatinine 0.76. Blood sugar 142. ALT 71. 02/13: Patient is currently on AirVo and nonrebreather with pulse ox 82-96%. He has been afebrile, heart rate in the 90s, respiratory rate 19-36. Blood pressure 132/84. WBC 17.9. Sodium 134. Blood sugar 125. Patient is continued on supplements, Baricitinib, dexamethasone and Lovenox. 02/14: Patient remains in the intensive care unit on airvo and nonrebreather. He states he was up in a chair for a little while yesterday. He still has coughing, no fever or chills. He is taking protein supplement. Patient has been afebrile, heart rate 97, blood pressure 139/88, respiratory rate 24, pulse ox 92%. WBC 17.6. Sodium 131. Patient is continued on supplements, Baricitinib, dexamethasone and Lovenox. 02/15: Patient remains in the intensive care unit on AirVo and nonrebreather with pulse ox of 94%. Patient's been afebrile, heart rate 86, respiratory rate 22, blood pressure 120/75. Review blood work reveals WBC 21. AST 82, ALT 229. Sodium 131, potassium 4.8, creatinine 0.88. Patient is complaining of oral pain, grinding his teeth. Patient is continued on supplements, Baricitinib, dexamethasone and Lovenox. 02/16: Patient moved out of the ICU, his currently in the telemetry unit, his monitor showing sinus tachycardia with PACs, he continues to be on airVo and nonrebreather his oxygen is about 93%, it does drop to 88-89% with activity and exertion, he continues to be generally weak, he has no chest pain at this time, he has no pleurisy, there is no hemoptysis, he has no abdominal pain, nausea or vomiting, he seems to be tolerating her treatment very well. 02/17: Patient is about the same he continues to be in a telemetry unit, he continues to have sinus tachycardia, he continues to be on same oxygen he continues to be about the same, he is currently maintained on Decadron as well as Baricitinib for a total of 14 doses, we will continue to monitor his liver function tests, and as he continues to have transaminitis., Patient denies any chest pain at this time he has no abdominal pain, nausea vomiting or diarrhea. 02/18: Patient is seen sitting up in a chair today. He is on AirVO nonrebreather with pulse ox 92%. His been afebrile, heart rate 112, blood pressure 128/73. Patient is currently on dexamethasone, Lovenox and vitamin supplements. He has completed his course of Baricitinib. Repeat blood work reveals WBC 31.2, hemoglobin 15, platelet count 601. Sodium 131, potassium 4.7, chloride 97, CO2 25, BUN 32 creatinine 0.8. Blood sugars are running between 117 and 130s. AST is 198, ALT 875. Alkaline phosphatase 82. 02/19: Patient is currently on AirVo only with pulse ox of 8792%. He has been afebrile, heart rate 107, blood pressure 114/77. Have any nausea vomiting, no diarrhea. He states he is feeling better from yesterday. No repeat chest x-ray is scheduled for today. Repeat blood work will be ordered for tomorrow. Patient is been monitored closely and followed by the pulmonary service since admission. Currently he is on 60 L oxygen via high flow nasal cannula with FiO2 of 68%. Slightly tachypneic and got short of breath when he talks. Labs reviewed WBC 23k, d-dimer 0.75, sodium slightly low 129, potassium slightly high at 5.3, liver enzymes slightly elevated, lactate dehydrogenase is elevated 1114. Poorcalcitonin is 0.19, was 0.08. Chest x-ray showing COPD with patchy bilateral Covid pneumonia. Patient currently kept on dexamethasone 6 mg daily, vitamin C, vitamin D and zinc. Also he is on Pepcid and Lovenox. 02/22/2021 Patient reports some improvement in his shortness of breath. Today following a T-max trying to wean him down with lowering oxygen requirement 60 down to 40 L per minute with FiO2 68 down to 50% this morning. Patient is to cardiac and more tachypneic during these attempts for now, we will keep monitoring. However he does not report any worsening dyspnea. Sodium improved to 134, potassium down to 5.0. He remains on dexamethasone and multiple vitamins. Also he is on Lovenox and Pepcid We will keep monitoring 02/23/2021 Patient today show significant improvement with drop of oxygen requirement down to 15 L/m, patient reports more easier breathing. No much coughing. WBC 20 2K, d-dimer is stable at 0.7. Potassium normal at 4.3. Lactate dehydrogenase still elevated but stable at 1023. Patient remains on the same treatment of dexamethasone, multiple vitamins, Lovenox and Pepcid 02/24/2021 Patient awake and alert, he feels generally weak, significantly dyspneic while talking. Looks more tired and lethargic. Patient is hypoxic requiring 15 L/m nonrebreather and interval of 40 L at 50%, he is tachypneic and tachycardic. Heart rate around 119. Chest x-ray: Chronic parenchymal changes with left mid lung and bibasilar opacities consistent with known covid 19 infection. No significant change. Patient remains on vitamin C, D and zinc, dexamethasone, Lovenox and Pepcid 02/25: Patient is on nonrebreather and AirVo pulse ox of 91%. He's been afebrile, heart rate 118, blood pressure 1 3472. Patient complains of feeling tired. Repeat chest x-ray ordered, Lasix at 40 mg IV every 12 hours, Mucinex ordered. WBC 20.1. Magnesium 2.5. LDH 1039, C-reactive protein 4.3, pro-calcitonin 0.16. Patient is continued on dexamethasone, Lovenox and vitamin supplements. 02/26: Pulse ox is running 89 and 99% with nonrebreather at 15 L and high flow nasal cannula at 15 L. He remains afebrile, heart rate 113, respiratory rate 24, blood pressure 117/72. No repeat blood work today. Patient states he slept well last night but he was having cramps yesterday most likely from diuresing. He did have 3000 ml urine out and Lasix decreased to once daily. Patient has less lower extremity edema and lower extremity ultrasound bilaterally ordered. Patient was complaining of back discomfort for which baclofen will be ordered. Repeat blood work and chest x-ray for tomorrow. Chest x-ray from yesterday reveals coarse basilar infiltrates unchanged from prior study. 02/27: Patient is now on 15 L nonrebreather, off AirVo.. His pulse ox is 95%. He's been afebrile, heart rate 114, respiratory rate 25, blood pressure 130/84. Patient has decreased lower extremity edema will be continued on Lasix 40 mg IV daily. He had a repeat Covid test done yesterday which was positive. Repeat chest x-ray reveals diffuse bilateral lung infiltrates stable. Venous Doppler bilateral lower extremity negative for DVT. 02/28: Patient is seen in follow-up today. He is resting and recliner. He has been afebrile, heart rate 110, blood pressure 122/72, respiratory rate 18-24, pulse ox 97% on high flow nasal cannula and AirVo. Repeat blood work reveals sodium 134, potassium 5.0, chloride 98, CO2 29, BUN 37 creatinine 0.86. Blood sugar 131. Patient is continued on vitamin supplements, dexamethasone, Lovenox. 03/01: The patient is now on nonrebreather only at 15 L with pulse ox of 95%. His been afebrile, heart rate 113, blood pressure 147/75. secured entrance monitor is a sinus rhythm. Patient's breathing status overall is improving but he still has significant shortness of breath with minimal activity. Patient continues to have cough with mild sputum production. We'll plan to remove Cheek catheter tomorrow morning. Cheek catheter was placed as patient was de-satting when he tried to stand to urinate. Urinalysis was also be obtained at that time. REVIEW OF SYSTEMS: Constitutional: Denies fever, chills, night sweats. No weight change. positive for weakness, reports fatigue no lethargy. Reports daytime sleepiness. HEENT: No headache. No nasal drainage or congestion. No epistaxis. Reports sore throat. Lungs: Continued shortness of breath with oxygen therapy slowly improving, positive for cough, positive for white sputum production. No wheezing. Reports dyspnea with minimal activity. Cardiovascular: No chest pain, no lower extremity edema. No palpitations. No paroxysmal nocturnal dyspnea. No orthopnea. No lightheadedness or dizziness. No syncopal episodes. Abdominal: denies abdominal pain. No nausea, vomiting. Denies diarrhea. No constipation. No bloody or tarry stools. Reports loss of appetite. Genitourinary: No dysuria, increased frequency, urgency. No urinary retention. Musculoskeletal: positive for myalgias. positive for generalized muscle weakn ess, no gait dysfunction, no frequent falls. Reports back pain. No neck pain. Integumentary: No wounds, no lesions. No rash or pruritus. No unusual bruising. Neurologic: No aphasia. No facial droop. No change in mentation. No head injury. No headache. No paralysis. No paresthesia. Psychiatric: No depression. No anxiety. Endocrine: Mildly abnormal blood sugars. PHYSICAL EXAMINATION: General: 56-year-old male sitting in recliner no acute respiratory distress at rest. Patient appears to be more comfortable. HEENT: Head is atraumatic, normocephalic, pupils were equal round, sclera nonicteric, conjunctivae were pale. Neck: Supple, no JVP, normal carotid upstroke bilaterally, no lymphadenopathy. Chest: Decreased breath sounds at the bases, few rhonchi, no chest wall tenderness, no intercostal retractions at rest. Heart: First heart sound is normal, second heart sounds normal, there is no gallop or murmur. Abdomen: Soft, nontender, nondistended, positive bowel sounds, no hepatosplenomegaly. Cheek catheter draining clear helga urine. Extremities: There is 1+ edema no calf tenderness DP +2 bilaterally. Neurologic examination: Patient is awake alert and oriented X 3, cranial nerves II-12 appear grossly intact. ASSESSMENT AND PLAN: 1. Acute hypoxemic respiratory failure due to bilateral patchy interstitial pneumonia due to COVID-19 pneumonia and sepsis (POA). Continue patient on Lovenox 40 mg subcu daily, Decadron 6 mg orally every day, Vitamin C 1000 mg orally once every day, zinc 220 mg once every day, vitamin D 1000 units once every day, completed course of Baricitinib, continue oxygen therapy on nonre breather. Continue Lasix 40 mg IV push daily. 2. Bilateral Covid pneumonia with ARDS. Continue with Airvo and nonrebreather, continue dexamethasone 6 mg orally every day, continue with supportive care. 3. Mild non-anion gap metabolic acidosis. Resolved. 4. Moderate protein calorie malnutrition secondary to decreased appetite and difficulty eating with oxygen mask. Continue Ensure 3 times daily. 5. Acute drug-induced hepatitis. Monitor the patient CMP in the next 24 hours. 6. DVT prophylaxis. Continue Lovenox 40 mg subcutaneously every 24 hours 7. GERD and GI prophylaxis. Continue patient on Protonix 40 mg oral twice daily. 8. Patient is full code. 9. Guarded prognosis. DISCHARGE PLAN Home most likely with home care and oxygen therapy. Impression and plan of care have been directed as dictated by the signing physician. Viridiana Baker nurse practitioner acting as scribe for signing physician. Objective - Vital Signs Vital signs: Vital Signs Temp 98.0 F 03/01/21 04:21 Pulse 113 H 03/01/21 04:21 Resp 18 03/01/21 04:21 BP 147/71 03/01/21 04:21 Pulse Ox 95 03/01/21 04:21 Intake & Output 02/28/21 03/01/21 03/01/21 18:59 06:59 18:59 Intake Total 600 Output Total 600 2325 Balance 0 -2325 Weight 80.3 kg Intake: Oral 600 Output: Urine 600 2325 Other: Voiding Method Indwelling Catheter Indwelling Catheter - Labs CBC & Chem 7: 02/25/21 06:02 02/27/21 08:24
[2021-03-01] MEDS: CHOLECALCIFEROL 25 MCG (1000 IU) TABLET PO SCH (09:17)
[2021-03-01] MEDS: guaiFENesin 600 MG TABLET.ER PO SCH ×2 (09:18→20:04)
[2021-03-01] MEDS: ASCORBIC ACID 500 MG TAB PO SCH (09:18)
[2021-03-01] MEDS: dexAMETHasone 2 MG TAB PO SCH (09:18)
[2021-03-01] MEDS: POTASSIUM CHLORIDE ER 20 MEQ TAB.ER PO SCH (09:18)
[2021-03-01] MEDS: MULTIVITAMINS, THERA 1 EACH TAB PO SCH (09:18)
[2021-03-01] MEDS: ZINC SULFATE 220 MG CAP PO SCH (09:18)
[2021-03-01] MEDS: FUROSEMIDE 10 MG/ML 4 ML VIAL IV SCH (09:19)
[2021-03-01] MEDS: ENOXAPARIN 40 MG/0.4 ML SYRINGE SQ SCH (09:19)
[2021-03-01 11:12] LABS: ALT 145 U/L (4-49); AST 35 U/L (17-59); African American GFR (CKD) >90 (>60 ml/min/1.73 sqM); Albumin 3.6 g/dL (3.5-5.0); Alkaline Phosphatase 80 U/L (38-126); Anion Gap 6 mmol/L; Blood Urea Nitrogen 38 mg/dL (9-20); C Reactive Protein 4.3 mg/dL (<1.0); Carbon Dioxide 29 mmol/L (22-30); Chloride 101 mmol/L (98-107); Glucose 94 mg/dL (74-99); LDH 958 U/L (313-618); Non-African American GFR(CKD) >90 (>60 ml/min/1.73 sqM); Potassium 4.5 mmol/L (3.5-5.1); Sodium 136 mmol/L (137-145); Total Bilirubin 0.5 mg/dL (0.2-1.3); Total Protein 6.3 g/dL (6.3-8.2)
[2021-03-01 11:29] LABS: Basophils % (A) 0 %; Eosinophils # (A) 0.1 k/uL (0-0.7); Eosinophils % (A) 1 %; HCT 41.2 % (39.0-53.0); HGB 13.7 gm/dL (13.0-17.5); Lymphocytes # (A) 0.9 k/uL (1.0-4.8); Lymphocytes % (A) 7 %; MCH 31.9 pg (25.0-35.0); MCHC 33.2 g/dL (31.0-37.0); Mean Platelet Volume 8.8; Monocytes # (A) 0.8 k/uL (0-1.0); Monocytes % (A) 7 %; Neutrophils # (A) 9.6 k/uL (1.3-7.7); Neutrophils % (A) 83 %; Platelet Count 169 k/uL (150-450); RBC 4.29 m/uL (4.30-5.90); WBC 11.5 k/uL (3.8-10.6)
--- NOTE | 2021-03-01 16:01 | P.PN ---
Subjective Progress Note Date: 03/01/21 02/26/2021, the patient is essentially the same. He slept all night on a high flow oxygen with a 40 L with an FiO2 of 50%. Earlier this morning as he was trying to get up, he desaturated and he subsequently had to put his 100% nonrebreather facemask on. It took them approximately an hour to build his oxygen back to above 90%. He is still having shortness of breath even at rest. Limited cough. No significant sputum production. He remains on Decadron 6 mg by mouth daily. Is also on Lovenox 40 mg subcu for DVT prophylaxis. His inflammatory markers were gradually improving. His LDH was down to 1039. LFTs are also improving. He is tolerating his diet. Is awake and alert. His been hospital for more than 3 weeks for COVID associated pneumonia. The patient is also producing excellent urine output. He is negative fluid balance of 1.8 L over the past 24 hours and the patient was started on Lasix and currently is taking 40 mg IV push daily Lasix. The inflammatory marker from today shows an LDH level of 1039 with a CRP of 4.3. The patient also was given Ambien overnight and the patient had an excellent night's sleep 02/27/2021, the patient is breathing is more labored this morning. Overnight, the patient was able to get himself off the high flow oxygen and he was using nonrebreather facemask and 100% FiO2 and he did that for several hours. As he got up to the bathroom, he became more short of breath. Currently is on a combination of both high flow oxygen at 40 L with an FiO2 of 50% and the patient is also on a nonrebreather facemask. He is a bit discouraged as the patient desaturated and he became quite short of breath. He was given Xanax. He is feeling better for now. His chest x-ray shows stable bilateral pulmonary infiltrates, worse on the left and I do not see any interval roll changer the past 1 week at least. He was given a dose of Lasix yesterday and he producing adequate amount of urine output. His sleep was good as the patient was getting Ambien overnight. He is also taking Xanax on an as needed basis. Labs from today is showing normal electrolytes, BUN of 37 with a creatinine of 0.86. Repeat Covid test was still positive. On 02/28/2021 patient seen in follow-up on selective care unit, is currently on Airvo at 40 L and FiO2 of 50% in addition to nonrebreather mask, he is maintaining O2 saturations between 90-94%, she is currently sitting up in the chair, does not appear to be in acute distress, although has exertional dyspnea and conversational dyspnea. Denies any fever or chills, his last chest x-ray was yesterday showed diffuse bilateral lung infiltrates stable in appearance. patient continues on Decadron 6 blood gram daily, Lovenox 40 mg daily, he continues on daily dose of Lasix 40 mg daily, no new labs today. Yesterday's labs have been reviewed, his inflammatory markers overall have been improving through the course of his hospitalization. Last d-dimer was 1.15. His pro calcitonin level has been negative 2. His electrolytes were unremarkable on yesterday's labs, BUN was 37 and creatinine was 0.86. 03/01/2021, the patient is on 15 L of nasal cannula in addition to 100% nonrebreather facemask and the pulse ox is above 90%. Airvo has been discontinued. His breathing is unlabored even at rest. He feels well and his oxidation slightly improved knowing that he was taken off the Airvo. He remains on Decadron 6 mg by mouth daily and is also on Lovenox 40 mg subcu for DVT prophylaxis. No other new complaints otherwise for now. His repeat COVID 19 testing came back positive. Otherwise, his d-dimer is low at 0.8. His LDH level has dropped down to 958, his CRP level is up to 4.3, electrolytes in cluding renal function tests have been within normal limits. The patient was advised of 11.5 with hemoglobin 13.7. Objective - Vital Signs Vital signs: Vital Signs Temp 97.1 F L 03/01/21 11:51 Pulse 100 03/01/21 11:51 Resp 20 03/01/21 09:00 BP 131/89 03/01/21 11:51 Pulse Ox 87 L 03/01/21 09:17 Intake & Output 02/28/21 03/01/21 03/01/21 18:59 06:59 18:59 Intake Total 600 240 Output Total 600 2325 1800 Balance 0 -2325 -1560 Weight 80.3 kg Intake: Oral 600 240 Output: Urine 600 2325 1800 Other: Voiding Method Indwelling Catheter Indwelling Catheter Indwelling Catheter - Exam Gen. appearance the patient is breathing comfortably Currently is on 15 L in addition to 100% nonrebreather facemask. Head exam was generally normal. There was no scleral icterus or corneal arcus. Mucous membranes were moist. Neck was supple and without jugular venous distension, thyromegaly, or carotid bruits. Carotids were easily palpable bilaterally. There was no adenopathy. Lungs sounds are diminished in the patient's crackles in the mid and lower lung talamantes bilaterally Cardiac exam revealed the PMI to be normally situated and sized. The rhythm was regular and no extrasystoles were noted during several minutes of auscultation. The first and second heart sounds were normal and physiologic splitting of the second heart sound was noted. There were no murmurs, rubs, clicks, or gallops. Abdominal exam revealed normal bowel sounds. The abdomen was soft, non-tender, and without masses, organomegaly, or appreciable enlargement of the abdominal aorta. Examination of the extremities revealed easily palpable radial, femoral and pedal pulses. There was no cyanosis, clubbing or edema. Examination of the skin revealed no evidence of significant rashes, suspicious appearing nevi or other concerning lesions. Neurologically, the patient is awake and alert and the patient does not have any focal neurological deficit. Cranial nerves are essentially intact. - Labs CBC & Chem 7: 03/01/21 08:40 03/01/21 08:40 Labs: Abnormal Lab Results - Last 24 Hours (Table) 03/01/21 03/01/21 03/01/21 Range/Units 08:40 08:40 08:40 WBC 11.5 H (3.8-10.6) k/uL RBC 4.29 L (4.30-5.90) m/uL Neutrophils # 9.6 H (1.3-7.7) k/uL Lymphocytes # 0.9 L (1.0-4.8) k/uL D-Dimer 0.89 H (<0.60) mg/L FEU Sodium 136 L (137-145) mmol/L BUN 38 H (9-20) mg/dL ALT 145 H (4-49) U/L Lactate Dehydrogenase 958 H (313-618) U/L C-Reactive Protein 4.3 H (<1.0) mg/dL Assessment and Plan Plan: 1 acute COVID 19 related pneumonia with secondary respiratory failure. Currently on airvo 40 liters and 50% Fio2. Chest x-ray showing diffuse bilateral pulmonary infiltrates consistent with COVID 19 related pneumonia. No interval worsening in his chest x-ray findings. The inflammatory markers including the LDH and CRP are being monitored. D-dimer is also lower. The patient is still on Decadron 6 mg and the patient has completed Baricitinib. The patient remains on Lovenox for DVT prophylaxis. Chest x-ray findings are stable. , The patient has been in the hospital for quite some time. The patient is currently off the Airvo and he is on 15 L of oxygen by nasal cannula. His also being supplemented with 100% nonrebreather facemask. Condition is stable. 2 shortness of breath secondary to above 3 acute hypoxic respiratory failure secondary to above 4 hypertension Plan Continue 15 L along with 100% nonrebreather Continue Decadron 6 mg every 24 hours Completed Baricitinib per protocol Lovenox 40 mg subcu for DVT prophylaxis Multivitamin cocktail for COVID 19 related infections Ambien 10 mg bedtime for sleep Lasix will be switched to 40 mg by mouth daily We'll continue to follow. We'll make further recommendations based on his progress.
[2021-03-02] MEDS: PANTOPRAZOLE 40 MG TABLET PO SCH ×2 (06:21→17:30)
[2021-03-02] MEDS: ENOXAPARIN 40 MG/0.4 ML SYRINGE SQ SCH (08:57)
[2021-03-02] MEDS: dexAMETHasone 2 MG TAB PO SCH (08:57)
[2021-03-02] MEDS: guaiFENesin 600 MG TABLET.ER PO SCH ×2 (08:57→19:38)
[2021-03-02] MEDS: ASCORBIC ACID 500 MG TAB PO SCH (08:57)
[2021-03-02] MEDS: CHOLECALCIFEROL 25 MCG (1000 IU) TABLET PO SCH (08:57)
[2021-03-02] MEDS: POTASSIUM CHLORIDE ER 20 MEQ TAB.ER PO SCH (08:58)
[2021-03-02] MEDS: MULTIVITAMINS, THERA 1 EACH TAB PO SCH (08:58)
[2021-03-02] MEDS: ZINC SULFATE 220 MG CAP PO SCH (08:58)
[2021-03-02] MEDS: FUROSEMIDE 40 MG TAB PO SCH (08:58)
[2021-03-02] MEDS: ALPRAZolam 0.25 MG TAB PO PRN (09:00)
[2021-03-02 14:31] LABS: Appearance,Urine Clear (Clear); Bilirubin,Urine Negative (Negative); Blood,Urine Trace (Negative); Color,Urine Light Yellow; Glucose,Urine (UA) Negative (Negative); Hyaline Casts,Urine 1 /lpf (0-2); Ketones,Urine Negative (Negative); Leukocyte Esterase,Urine Negative (Negative); Nitrite,Urine Negative (Negative); Protein,Urine Negative (Negative); RBC,Urine 4 /hpf (0-5); Specific Gravity,Urine 1.009 (1.001-1.035); Urobilinogen,Urine <2.0 mg/dL (<2.0); WBC,Urine <1 /hpf (0-5)
--- NOTE | 2021-03-02 14:48 | P.PN ---
Subjective Progress Note Date: 03/02/21 02/26/2021, the patient is essentially the same. He slept all night on a high flow oxygen with a 40 L with an FiO2 of 50%. Earlier this morning as he was trying to get up, he desaturated and he subsequently had to put his 100% nonrebreather facemask on. It took them approximately an hour to build his oxygen back to above 90%. He is still having shortness of breath even at rest. Limited cough. No significant sputum production. He remains on Decadron 6 mg by mouth daily. Is also on Lovenox 40 mg subcu for DVT prophylaxis. His inflammatory markers were gradually improving. His LDH was down to 1039. LFTs are also improving. He is tolerating his diet. Is awake and alert. His been hospital for more than 3 weeks for COVID associated pneumonia. The patient is also producing excellent urine output. He is negative fluid balance of 1.8 L over the past 24 hours and the patient was started on Lasix and currently is taking 40 mg IV push daily Lasix. The inflammatory marker from today shows an LDH level of 1039 with a CRP of 4.3. The patient also was given Ambien overnight and the patient had an excellent night's sleep 02/27/2021, the patient is breathing is more labored this morning. Overnight, the patient was able to get himself off the high flow oxygen and he was using nonrebreather facemask and 100% FiO2 and he did that for several hours. As he got up to the bathroom, he became more short of breath. Currently is on a combination of both high flow oxygen at 40 L with an FiO2 of 50% and the patient is also on a nonrebreather facemask. He is a bit discouraged as the patient desaturated and he became quite short of breath. He was given Xanax. He is feeling better for now. His chest x-ray shows stable bilateral pulmonary infiltrates, worse on the left and I do not see any interval meter changes records clerk the past 1 week at least. He was given a dose of Lasix yesterday and he producing adequate amount of urine output. His sleep was good as the patient was getting Ambien overnight. He is also taking Xanax on an as needed basis. Labs from today is showing normal electrolytes, BUN of 37 with a creatinine of 0.86. Repeat Covid test was still positive. On 02/28/2021 patient seen in follow-up on selective care unit, is currently on Airvo at 40 L and FiO2 of 50% in addition to nonrebreather mask, he is maintaining O2 saturations between 90-94%, she is currently sitting up in the chair, does not appear to be in acute distress, although has exertional dyspnea and conversational dyspnea. Denies any fever or chills, his last chest x-ray was yesterday showed diffuse bilateral lung infiltrates stable in appearance. patient continues on Decadron 6 blood gram daily, Lovenox 40 mg daily, he continues on daily dose of Lasix 40 mg daily, no new labs today. Yesterday's labs have been reviewed, his inflammatory markers overall have been improving through the course of his hospitalization. Last d-dimer was 1.15. His pro calcitonin level has been negative 2. His electrolytes were unremarkable on yesterday's labs, BUN was 37 and creatinine was 0.86. 03/01/2021, the patient is on 15 L of nasal cannula in addition to 100% nonrebreather facemask and the pulse ox is above 90%. Airvo has been discontinued. His breathing is unlabored even at rest. He feels well and his oxidation slightly improved knowing that he was taken off the Airvo. He remains on Decadron 6 mg by mouth daily and is also on Lovenox 40 mg subcu for DVT prophylaxis. No other new complaints otherwise for now. His repeat COVID 19 testing came back positive. Otherwise, his d-dimer is low at 0.8. His LDH level has dropped down to 958, his CRP level is up to 4.3, electrolytes in cluding renal function tests have been within normal limits. The patient was advised of 11.5 with hemoglobin 13.7. 03/02/2021, the patient remains essentially unchanged on the 100% fullface mask in addition to 15 L nasal cannula. No new complaints otherwise for now. Resting comfortably in bed. Breathing is labored specially with activity, and activities such as going back and forth to the bathroom will make this patient shortness of breath and hypoxic. Current d-dimer is at 0.8 from yesterday. No new electrolytes are labs from today. Urinalysis is negative. He remains essentially the same treatment. He remains on Decadron 6 mg by mouth daily. Is also on Lovenox 40 minutes subcu for DVT prophylaxis. No other significant events overnight. Most recent Doppler of the lower extremity from 02/26/2021 has been essentially within normal limits. Objective - Vital Signs Vital signs: Vital Signs Temp 97.1 F L 03/02/21 04:00 Pulse 103 H 03/02/21 11:44 Resp 18 03/02/21 11:44 BP 153/87 03/02/21 11:44 Pulse Ox 91 L 03/02/21 11:44 Intake & Output 03/01/21 03/02/21 03/02/21 18:59 06:59 18:59 Intake Total 540 118 Output Total 1800 750 Balance -1260 -750 118 Intake: Oral 540 118 Output: Urine 1800 750 Uretheral (Cheek) 150 Other: Voiding Method Indwelling Catheter Indwelling Catheter Indwelling Catheter - Exam Gen. appearance the patient is breathing comfortably Currently is on 15 L in addition to 100% nonrebreather facemask. Head exam was generally normal. There was no scleral icterus or corneal arcus. Mucous membranes were moist. Neck was supple and without jugular venous distension, thyromegaly, or carotid bruits. Carotids were easily palpable bilaterally. There was no adenopathy. Lungs sounds are diminished in the patient's crackles in the mid and lower lung talamantes bilaterally Cardiac exam revealed the PMI to be normally situated and sized. The rhythm was regular and no extrasystoles were noted during several minutes of auscultation. The first and second heart sounds were normal and physiologic splitting of the second heart sound was noted. There were no murmurs, rubs, clicks, or gallops. Abdominal exam revealed normal bowel sounds. The abdomen was soft, non-tender, and without masses, organomegaly, or appreciable enlargement of the abdominal aorta. Examination of the extremities revealed easily palpable radial, femoral and pedal pulses. There was no cyanosis, clubbing or edema. Examination of the skin revealed no evidence of significant rashes, suspicious appearing nevi or other concerning lesions. Neurologically, the patient is awake and alert and the patient does not have any focal neurological deficit. Cranial nerves are essentially intact. - Labs CBC & Chem 7: 03/01/21 08:40 03/01/21 08:40 Labs: Abnormal Lab Results - Last 24 Hours (Table) 03/02/21 Range/Units 14:15 Urine Blood Trace H (Negative) Assessment and Plan Plan: 1 acute COVID 19 related pneumonia with secondary respiratory failure. Currently on airvo 40 liters and 50% Fio2. Chest x-ray showing diffuse bilateral pulmonary infiltrates consistent with COVID 19 related pneumonia. No interval worsening in his chest x-ray findings. The inflammatory markers including the LDH and CRP are being monitored. D-dimer is also lower. The patient is still on Decadron 6 mg and the patient has completed Baricitinib. The patient remains on Lovenox for DVT prophylaxis. Chest x-ray findings are stable. , The patient has been in the hospital for quite some time. The shani magallon is currently off the Airvo and he is on 15 L of oxygen by nasal cannula. His also being supplemented with 100% nonrebreather facemask. Condition is stable. No interval meter changes records clerk the past 24 hours and the patient continues to be on same oxygen settings. 2 shortness of breath secondary to above 3 acute hypoxic respiratory failure secondary to above 4 hypertension Plan Continue 15 L along with 100% nonrebreather Continue Decadron 6 mg every 24 hours Completed Baricitinib per protocol Lovenox 40 mg subcu for DVT prophylaxis Multivitamin cocktail for COVID 19 related infections Ambien 10 mg bedtime for sleep Lasix will be switched to 40 mg by mouth daily We'll continue to follow. We'll make further recommendations based on his progress. No major changes on today's evaluation. The patient is essentially stable. 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 He remains on oxygen at 15 L along with 100% nonrebreather facemask.
[2021-03-02] MEDS: BACLOFEN 10 MG TAB PO PRN (18:44)
[2021-03-02] MEDS: ZOLPIDEM 5 MG TAB PO PRN (19:38)
[2021-03-03] MEDS: ALPRAZolam 0.25 MG TAB PO PRN (00:14)
[2021-03-03] MEDS: PANTOPRAZOLE 40 MG TABLET PO SCH ×2 (06:13→16:34)
[2021-03-03] MEDS: FUROSEMIDE 40 MG TAB PO SCH (09:35)
[2021-03-03] MEDS: dexAMETHasone 2 MG TAB PO SCH (09:35)
[2021-03-03] MEDS: ENOXAPARIN 40 MG/0.4 ML SYRINGE SQ SCH (09:36)
[2021-03-03] MEDS: MULTIVITAMINS, THERA 1 EACH TAB PO SCH (09:36)
[2021-03-03] MEDS: POTASSIUM CHLORIDE ER 20 MEQ TAB.ER PO SCH (09:36)
[2021-03-03] MEDS: ZINC SULFATE 220 MG CAP PO SCH (09:36)
[2021-03-03] MEDS: guaiFENesin 600 MG TABLET.ER PO SCH ×2 (09:36→20:50)
[2021-03-03] MEDS: CHOLECALCIFEROL 25 MCG (1000 IU) TABLET PO SCH (09:36)
[2021-03-03] MEDS: ASCORBIC ACID 500 MG TAB PO SCH (09:36)
--- NOTE | 2021-03-03 12:38 | P.PN ---
Subjective Progress Note Date: 03/03/21 Progress Note Date: 03/02/21 HISTORY OF PRESENT ILLNESS: This is a 56-year-old male with a past medical history significant for hypertension and hypertensive cardiovascular disease, hyperlipidemia, history of tobacco use and dependence, presented to the emergency department at [facility] with increased coughing and increased shortness breath that started last and has been getting worse over the last few days, yesterday he w as extremely short of breath and his oxygen saturation was in the low 70s, his tried to get him to the ER but eventually called 911 and the patient was brought into the ER at [facility] where he had a chest x-ray that did show evidence of bilateral patchy infiltrate suggestive of Covid pneumonia, his COVID-19 PCR was positive, patient was started on nonrebreather, and later on was seen in consultation by pulmonary medicine and he was placed on Airvo and was started on Bacitinib 4 mg po daily and the patient was admitted to the hospital for further evaluation and treatment. 02/05: A shunt is currently on AirVol. He has complained of feeling tired and complaining of gastric reflux. Protonix will be increased to 40 mg IV push twice daily. Patient is been seen by pulmonary medicine and started on Baricitinib, continued on dexamethasone 6 mg twice daily, Lovenox 40 mg daily. He has been afebrile, heart rate 92, blood pressure 137/86, pulse ox 97%. Repeat blood work reveals WBC 2.2, d-dimer 3.33, blood sugar 143. LDH 735, C- reactive protein 15.5. Chest x-ray reveals chronic emphysematous and pulmonary fibrotic changes with bilateral multifocal reticular nodular opacities consistent with COVID-19. Perhaps slight improvement in the right lung base. Ultrasound of bilateral lower extremities negative for DVT. 02/06: Last evening, patient was transferred into the intensive care unit as he was on 15 L nonrebreather was transitioned over to AirVo 60 L 90% with nonr ebreather on top. Pulse ox is currently running 84-87%. He has been afebrile, heart rate in the 80s and 90s, respiratory rate 29, blood pressure 131/82. Patient is requesting Cepacol lozenges and nasal spray added. Ensure 3 times daily also added, patient has decreased appetite and limited oral intake. Repeat blood work reveals WBC 4.9, hemoglobin 13.6. Platelet count 381. D- dimer 2.15. LDH 1685. C-reactive protein 5.6. Repeat chest x-ray revealed continue his Covid infiltrate superimposed on bollous emphysema. Slight improvement in aeration in the right upper lobe. Patient is continued on dexamethasone, Lovenox, vitamin supplements and Baricitinib. 02/07:patient remains in the intensive care unit. He is on nonrebreather mask as well as high flow AirVo with O2 at 60 L, FiO2 90%. patient remains afebrile, heart rate in the 70s, respiratory rate 26, blood pressure 127/79, pulse ox 86- 88%, pulse ox drops in the low 80s when patient ate's. He is on ensure 3 times daily. Patient is complaining of some cough and back pain when he coughs. He is less fatigued today. 02/08: Patient remains in intensive care unit currently on nonrebreather, as well as a high flow airflow oxygen still borderline at 89%, patient is eating his protein, hysterectomy 8 his breakfast, he has no chest pain at this time he continues to be extreme short of breath, he has no abdominal pain, he had lost some of the states, he has no headache, he has no hemoptysis, he has no pleurisy, he has no edema. 02/09: Patient sitting up in a chair his feeling a bit better. He continues to be on nonrebreather along with airflow 60 L, he denies any chest pain, his continues to be somewhat short of breath, he continues to struggle with breathing, has no abdominal pain, he had a good bowel movement yesterday, he is tolerating his food, patient is stable at this point in time, he will stay in the intensive care unit due to his oxygen requirement, chest x-ray showed bilateral diffuse infiltrate suggestive of Covid pneumonia, he continues to be on Decadron 6 mg orally twice every day, we'll continue conservative management continue supportive care continue Baricitinib daily for a total of 14 doses today is 08/10 02/10: Patient is feeling better today he continues to be on airVO and NRB, continues to require a lot of oxygen, sitting up and eating his breakfast, he has no chest pain, no pleurisy, he does competitive achiness in the back of his legs, he is current;y on Baricitinib Day #6 out of 14. 02/11: Patient is seen today in the ICU. He is on AirVo had 90% 60 L and nonrebreather is used as needed. Patient is more mobile in his room. He has been afebrile, heart rate 81 and 96, blood pressure 127/72 area pulse ox 87-95%. Repeat blood work reveals WBC 15.5. Electrolytes normal. BUN 27 creatinine 0.84. Blood sugar 145. Liver function tests were normal. Patient is on regular diet and protein supplements. He is continued on Baricitinib, oral dexamethasone, Lovenox and supplements. 02/12: Patient remains in intensive care unit. He is on AirVo plus nonrebreather but he is keeping NRB in place except for oral intake. He has been afebrile, heart rate 89, respiratory rate 23-30, blood pressure 132/75, pulse ox 90%. CTA of the chest showed no pulmonary embolism. Small pericardial effusion. Extensive emphysematous changes and/or pulmonary fibrosis. Patient is on regular diet and protein supplements. No vomiting or diarrhea. WBC 14.2. Creatinine 0.76. Blood sugar 142. ALT 71. 02/13: Patient is currently on AirVo and nonrebreather with pulse ox 82-96%. He has been afebrile, heart rate in the 90s, respiratory rate 19-36. Blood pressure 132/84. WBC 17.9. Sodium 134. Blood sugar 125. Patient is continued on supplements, Baricitinib, dexamethasone and Lovenox. 02/14: Patient remains in the intensive care unit on airvo and nonrebreather. He states he was up in a chair for a little while yesterday. He still has coughing, no fever or chills. He is taking protein supplement. Patient has been afebrile, heart rate 97, blood pressure 139/88, respiratory rate 24, pulse ox 92%. WBC 17.6. Sodium 131. Patient is continued on supplements, Baricitini b, dexamethasone and Lovenox. 02/15: Patient remains in the intensive care unit on AirVo and nonrebreather with pulse ox of 94%. Patient's been afebrile, heart rate 86, respiratory rate 22, blood pressure 120/75. Review blood work reveals WBC 21. AST 82, ALT 229. Sodium 131, potassium 4.8, creatinine 0.88. Patient is complaining of oral pain, grinding his teeth. Patient is continued on supplements, Baricitinib, dexamethasone and Lovenox. 02/16: Patient moved out of the ICU, his currently in the telemetry unit, his monitor showing sinus tachycardia with PACs, he continues to be on airVo and nonrebreather his oxygen is about 93%, it does drop to 88-89% with activity and exertion, he continues to be generally weak, he has no chest pain at this time, he has no pleurisy, there is no hemoptysis, he has no abdominal pain, nausea or vomiting, he seems to be tolerating her treatment very well. 02/17: Patient is about the same he continues to be in a telemetry unit, he continues to have sinus tachycardia, he continues to be on same oxygen he continues to be about the same, he is currently maintained on Decadron as well as Baricitinib for a total of 14 doses, we will continue to monitor his liver function tests, and as he continues to have transaminitis., Patient denies any chest pain at this time he has no abdominal pain, nausea vomiting or diarrhea. 02/18: Patient is seen sitting up in a chair today. He is on AirVO nonrebreather with pulse ox 92%. His been afebrile, heart rate 112, blood pressure 128/73. Patient is currently on dexamethasone, Lovenox and vitamin supplements. He has completed his course of Baricitinib. Repeat blood work reveals WBC 31.2, hemoglobin 15, platelet count 601. Sodium 131, potassium 4.7, chloride 97, CO2 25, BUN 32 creatinine 0.8. Blood sugars are running between 117 and 130s. AST is 198, ALT 875. Alkaline phosphatase 82. 02/19: Patient is currently on AirVo only with pulse ox of 8792%. He has been afebrile, heart rate 107, blood pressure 114/77. Have any nausea vomiting, no diarrhea. He states he is feeling better from yesterday. No repeat chest x-ray is scheduled for today. Repeat blood work will be ordered for tomorrow. Patient is been monitored closely and followed by the pulmonary service since admission. Currently he is on 60 L oxygen via high flow nasal cannula with FiO2 of 68%. Slightly tachypneic and got short of breath when he talks. Labs reviewed WBC 23k, d-dimer 0.75, sodium slightly low 129, potassium slightly high at 5.3, liver enzymes slightly elevated, lactate dehydrogenase is elevated 1114. Poorcalcitonin is 0.19, was 0.08. Chest x-ray showing COPD with patchy bilateral Covid pneumonia. Patient currently kept on dexamethasone 6 mg daily, vitamin C, vitamin D and zinc. Also he is on Pepcid and Lovenox. 02/22/2021 Patient reports some improvement in his shortness of breath. Today following a T-max trying to wean him down with lowering oxygen requirement 60 down to 40 L per minute with FiO2 68 down to 50% this morning. Patient is to cardiac and more tachypneic during these attempts for now, we will keep monitoring. However he does not report any worsening dyspnea. Sodium improved to 134, potassium down to 5.0. He remains on dexamethasone and multiple vitamins. Also he is on Lovenox and Pepcid We will keep monitoring 02/23/2021 Patient today show significant improvement with drop of oxygen requirement down to 15 L/m, patient reports more easier breathing. No much coughing. WBC 20 2K, d-dimer is stable at 0.7. Potassium normal at 4.3. Lactate dehydrogenase still elevated but stable at 1023. Patient remains on the same treatment of dexamethasone, multiple vitamins, Lovenox and Pepcid 02/24/2021 Patient awake and alert, he feels generally weak, significantly dyspneic while talking. Looks more tired and lethargic. Patient is hypoxic requiring 15 L/m nonrebreather and interval of 40 L at 50%, he is tachypneic and tachycardic. Heart rate around 119. Chest x-ray: Chronic parenchymal changes with left mid lung and bibasilar opacities consistent with known covid 19 infection. No significant change. Patient remains on vitamin C, D and zinc, dexamethasone, Lovenox and Pepcid 02/25: Patient is on nonrebreather and AirVo pulse ox of 91%. He's been afebril e, heart rate 118, blood pressure 1 3472. Patient complains of feeling tired. Repeat chest x-ray ordered, Lasix at 40 mg IV every 12 hours, Mucinex ordered. WBC 20.1. Magnesium 2.5. LDH 1039, C-reactive protein 4.3, pro-calcitonin 0.16. Patient is continued on dexamethasone, Lovenox and vitamin supplements. 02/26: Pulse ox is running 89 and 99% with nonrebreather at 15 L and high flow nasal cannula at 15 L. He remains afebrile, heart rate 113, respiratory rate 24, blood pressure 117/72. No repeat blood work today. Patient states he slept well last night but he was having cramps yesterday most likely from diuresing. He did have 3000 ml urine out and Lasix decreased to once daily. Patient has less lower extremity edema and lower extremity ultrasound bilaterally ordered. Patient was complaining of back discomfort for which baclofen will be ordered. Repeat blood work and chest x-ray for tomorrow. Chest x-ray from yesterday reveals coarse basilar infiltrates unchanged from prior study. 02/27: Patient is now on 15 L nonrebreather, off AirVo.. His pulse ox is 95%. He's been afebrile, heart rate 114, respiratory rate 25, blood pressure 130/84. Patient has decreased lower extremity edema will be continued on Lasix 40 mg IV daily. He had a repeat Covid test done yesterday which was positive. Repeat chest x-ray reveals diffuse bilateral lung infiltrates stable. Venous Doppler bilateral lower extremity negative for DVT. 02/28: Patient is seen in follow-up today. He is resting and recliner. He has been afebrile, heart rate 110, blood pressure 122/72, respiratory rate 18-24, pulse ox 97% on high flow nasal cannula and AirVo. Repeat blood work reveals sodium 134, potassium 5.0, chloride 98, CO2 29, BUN 37 creatinine 0.86. Blood sugar 131. Patient is continued on vitamin supplements, dexamethasone, Lovenox. 03/01: The patient is now on nonrebreather only at 15 L with pulse ox of 95%. His been afebrile, heart rate 113, blood pressure 147/75. radiation monitor is a sinus rhythm. Patient's breathing status overall is improving but he still has significant shortness of breath with minimal activity. Patient continues to have cough with mild sputum production. We'll plan to remove Cheek catheter tomorrow morning. Cheek catheter was placed as patient was de-satting when he tried to stand to urinate. Urinalysis was also be obtained at that time. 03/02: Patient continues to feel a bit better, he is currently on 15 L along with an nonrebreather, he denies any chest pain his less short of breath, he continues to emboly very carefully, his appetite is okay, he has no diarrhea, he has no pleurisy, he has no hemoptysis, the swelling in both lower extremities are better, we'll continue with supportive care, patient is complaining of increased constipation stool softener along with MiraLAX will be added. 03/03: Patient sitting up in bed is feeling better today, he still didn't have a bowel movement, MiraLAX will be admitted, along with the Senokot 2 tablet a day, continue activity, continue Decadron 6 mg orally once every day, continue to monitor the patient very closely, continue oxygen support with 15 L an nonrebreather as needed, patient appears to be a lot better today than he was yesterday we'll continue to monitor very closely. REVIEW OF SYSTEMS: Constitutional: Denies fever, chills, night sweats. No weight change. positive for weakness, reports fatigue no lethargy. Reports daytime sleepiness. HEENT: No headache. No nasal drainage or congestion. No epistaxis. Reports sore throat. Lungs: Continued shortness of breath with oxygen therapy slowly improving, positive for cough, positive for white sputum production. No wheezing. Reports dyspnea with minimal activity. Cardiovascular: No chest pain, no lower extremity edema. No palpitations. No paroxysmal nocturnal dyspnea. No orthopnea. No lightheadedness or dizziness. No syncopal episodes. Abdominal: denies abdominal pain. No nausea, vomiting. Denies diarrhea. No constipation. No bloody or tarry stools. Reports loss of appetite. Genitourinary: No dysuria, increased frequency, urgency. No urinary retention. Musculoskeletal: positive for myalgias. positive for generalized muscle weakness, no gait dysfunction, no frequent falls. Reports back pain. No neck pain. Integumentary: No wounds, no lesions. No rash or pruritus. No unusual bruising. Neurologic: No aphasia. No facial droop. No change in mentation. No head injury. No headache. No paralysis. No paresthesia. Psychiatric: No depression. No anxiety. Endocrine: Mildly abnormal blood sugars. PHYSICAL EXAMINATION: General: 56-year-old male sitting in recliner no acute respiratory distress at rest. Patient appears to be more comfortable. HEENT: Head is atraumatic, normocephalic, pupils were equal round, sclera nonicteric, conjunctivae were pale. Neck: Supple, no JVP, normal carotid upstroke bilaterally, no lymphadenopathy. Chest: Decreased breath sounds at the bases, few rhonchi, no chest wall tenderness, no intercostal retractions at rest. Heart: First heart sound is normal, second heart sounds normal, there is no ga llop or murmur. Abdomen: Soft, nontender, nondistended, positive bowel sounds, no hepatosplenomegaly. Cheek catheter draining clear helga urine. Extremities: There is 1+ edema no calf tenderness DP +2 bilaterally. Neurologic examination: Patient is awake alert and oriented X 3, cranial nerves II-12 appear grossly intact. ASSESSMENT AND PLAN: 1. Acute hypoxemic respiratory failure due to bilateral patchy interstitial pneumonia due to COVID-19 pneumonia and sepsis (POA). Continue patient on Lovenox 40 mg subcu daily, Decadron 6 mg orally every day, Vitamin C 1000 mg orally once every day, zinc 220 mg once every day, vitamin D 1000 units once every day, completed course of Baricitinib, continue oxygen therapy on nonrebreather. Continue Lasix 40 mg orally once every day. 2. Bilateral Covid pneumonia with ARDS. Continue with failure oxygen plus nonrebreather, continue dexamethasone 6 mg orally every day, continue with supportive care. 3. Mild non-anion gap metabolic acidosis. Resolved. 4. Moderate protein calorie malnutrition secondary to decreased appetite and difficulty eating with oxygen mask. Continue Ensure 3 times daily. 5. Acute drug-induced hepatitis. Monitor the patient CMP. 6. DVT prophylaxis. Continue Lovenox 40 mg subcutaneously every 24 hours 7. GERD and GI prophylaxis. Continue patient on Protonix 40 mg oral twice donna ly. 8. Constipation. Start the patient on Senokot 2 tablet at bedtime along with MiraLAX 17 g in 8 ounces water once every day. 9. Patient is full code. 10. Guarded prognosis. DISCHARGE PLAN Home most likely with home care and oxygen therapy. Objective - Vital Signs Vital signs: Vital Signs Temp 98.0 F 03/03/21 09:00 Pulse 104 H 03/03/21 09:00 Resp 22 03/03/21 09:00 BP 137/80 03/03/21 09:00 Pulse Ox 96 03/03/21 09:00 Intake & Output 03/02/21 03/03/21 03/03/21 18:59 06:59 18:59 Intake Total 236 240 120 Output Total 1475 350 250 Balance -1239 -110 -130 Intake: Oral 236 240 120 Output: Urine 1475 350 250 Other: Voiding Method Urinal Urinal Urinal # Voids 1 - Labs CBC & Chem 7: 03/01/21 08:40 03/01/21 08:40 Labs: Abnormal Lab Results - Last 24 Hours (Table) 03/02/21 Range/Units 14:15 Urine Blood Trace H (Negative)
[2021-03-03] MEDS: polyethylene glycoL 3350 17 GM POWD.PACK PO SCH (13:10)
--- NOTE | 2021-03-03 15:11 | P.PN ---
Subjective Progress Note Date: 03/03/21 02/26/2021, the patient is essentially the same. He slept all night on a high flow oxygen with a 40 L with an FiO2 of 50%. Earlier this morning as he was trying to get up, he desaturated and he subsequently had to put his 100% nonrebreather facemask on. It took them approximately an hour to build his oxygen back to above 90%. He is still having shortness of breath even at rest. Limited cough. No significant sputum production. He remains on Decadron 6 mg by mouth daily. Is also on Lovenox 40 mg subcu for DVT prophylaxis. His inflammatory markers were gradually improving. His LDH was down to 1039. LFTs are also improving. He is tolerating his diet. Is awake and alert. His been hospital for more than 3 weeks for COVID associated pneumonia. The patient is also producing excellent urine output. He is negative fluid balance of 1.8 L over the past 24 hours and the patient was started on Lasix and currently is taking 40 mg IV push daily Lasix. The inflammatory marker from today shows an LDH level of 1039 with a CRP of 4.3. The patient also was given Ambien overnight and the patient had an excellent night's sleep 02/27/2021, the patient is breathing is more labored this morning. Overnight, the patient was able to get himself off the high flow oxygen and he was using nonrebreather facemask and 100% FiO2 and he did that for several hours. As he got up to the bathroom, he became more short of breath. Currently is on a combination of both high flow oxygen at 40 L with an FiO2 of 50% and the patient is also on a nonrebreather facemask. He is a bit discouraged as the patient desaturated and he became quite short of breath. He was given Xanax. He is feeling better for now. His chest x-ray shows stable bilateral pulmonary infiltrates, worse on the left and I do not see any interval exchange underwriting consultant the past 1 week at least. He was given a dose of Lasix yesterday and he producing adequate amount of urine output. His sleep was good as the patient was getting Ambien overnight. He is also taking Xanax on an as needed basis. Labs from today is showing normal electrolytes, BUN of 37 with a creatinine of 0.86. Repeat Covid test was still positive. On 02/28/2021 patient seen in follow-up on selective care unit, is currently on Airvo at 40 L and FiO2 of 50% in addition to nonrebreather mask, he is maintaining O2 saturations between 90-94%, she is currently sitting up in the chair, does not appear to be in acute distress, although has exertional dyspnea and conversational dyspnea. Denies any fever or chills, his last chest x-ray was yesterday showed diffuse bilateral lung infiltrates stable in appearance. patient continues on Decadron 6 blood gram daily, Lovenox 40 mg daily, he continues on daily dose of Lasix 40 mg daily, no new labs today. Yesterday's labs have been reviewed, his inflammatory markers overall have been improving through the course of his hospitalization. Last d-dimer was 1.15. His pro calcitonin level has been negative 2. His electrolytes were unremarkable on yesterday's labs, BUN was 37 and creatinine was 0.86. 03/01/2021, the patient is on 15 L of nasal cannula in addition to 100% nonrebreather facemask and the pulse ox is above 90%. Airvo has been discontinued. His breathing is unlabored even at rest. He feels well and his oxidation slightly improved knowing that he was taken off the Airvo. He remains on Decadron 6 mg by mouth daily and is also on Lovenox 40 mg subcu for DVT prophylaxis. No other new complaints otherwise for now. His repeat COVID 19 testing came back positive. Otherwise, his d-dimer is low at 0.8. His LDH level has dropped down to 958, his CRP level is up to 4.3, electrolytes in cluding renal function tests have been within normal limits. The patient was advised of 11.5 with hemoglobin 13.7. 03/02/2021, the patient remains essentially unchanged on the 100% fullface mask in addition to 15 L nasal cannula. No new complaints otherwise for now. Resting comfortably in bed. Breathing is labored specially with activity, and activities such as going back and forth to the bathroom will make this patient shortness of breath and hypoxic. Current d-dimer is at 0.8 from yesterday. No new electrolytes are labs from today. Urinalysis is negative. He remains essentially the same treatment. He remains on Decadron 6 mg by mouth daily. Is also on Lovenox 40 minutes subcu for DVT prophylaxis. No other significant events overnight. Most recent Doppler of the lower extremity from 02/26/2021 has been essentially within normal limits. 03/03/21, the patient has no new complaints. Resting comfortably in his recliner on 15 L of oxygen by nasal cannula. He is also on 100% nonrebreather fullface mask. The patient is doing well. No specific complaints. The patient remains on Decadron 6 mg by mouth daily. The patient also remains on Lasix 40 mg by mouth daily and anticoagulation with Lovenox 40 mg subcu daily basis. Tolerating his diet. Communicating. Able to speak up for language is no signs of any infection. Current pulse ox is around 88-92% on the above-mentioned oxygen flow. Objective - Vital Signs Vital signs: Vital Signs Temp 98.0 F 03/03/21 09:00 Pulse 104 H 03/03/21 09:00 Resp 22 03/03/21 09:00 BP 137/80 03/03/21 09:00 Pulse Ox 96 03/03/21 09:00 Intake & Output 03/02/21 03/03/21 03/03/21 18:59 06:59 18:59 Intake Total 236 240 600 Output Total 1475 350 250 Balance -1239 -110 350 Intake: Oral 236 240 600 Output: Urine 1475 350 250 Other: Voiding Method Urinal Urinal Urinal # Voids 1 - Exam Gen. appearance the patient is breathing comfortably Currently is on 15 L in a ddition to 100% nonrebreather facemask. Head exam was generally normal. There was no scleral icterus or corneal arcus. Mucous membranes were moist. Neck was supple and without jugular venous distension, thyromegaly, or carotid bruits. Carotids were easily palpable bilaterally. There was no adenopathy. Lungs sounds are diminished in the patient's crackles in the mid and lower lung tal[place] bilaterally Cardiac exam revealed the PMI to be normally situated and sized. The rhythm was regular and no extrasystoles were noted during several minutes of auscultation. The first and second heart sounds were normal and physiologic splitting of the second heart sound was noted. There were no murmurs, rubs, clicks, or gallops. Abdominal exam revealed normal bowel sounds. The abdomen was soft, non-tender, a nd without masses, organomegaly, or appreciable enlargement of the abdominal aorta. Examination of the extremities revealed easily palpable radial, femoral and pedal pulses. There was no cyanosis, clubbing or edema. Examination of the skin revealed no evidence of significant rashes, suspicious appearing nevi or other concerning lesions. Neurologically, the patient is awake and alert and the patient does not have any focal neurological deficit. Cranial nerves are essentially intact. - Labs CBC & Chem 7: 03/01/21 08:40 03/01/21 08:40 Assessment and Plan Plan: 1 acute COVID 19 related pneumonia with secondary respiratory failure. The patient is currently off the Airvo and he is on 15 L of oxygen by nasal cannula. His also being supplemented with 100% nonrebreather facemask. Condition is stable. No interval exchange underwriting consultant the past 48 hours and the patient continues to be on same oxygen settings. 2 shortness of breath secondary to above 3 acute hypoxic respiratory failure secondary to above 4 hypertension Plan Continue 15 L along with 100% nonrebreather Continue Decadron 6 mg every 24 hours Completed Baricitinib per protocol Lovenox 40 mg subcu for DVT prophylaxis Multivitamin cocktail for COVID 19 related infections Ambien 10 mg bedtime for sleep Lasix will be switched to 40 mg by mouth daily We'll continue to follow. We'll make further recommendations based on his progress. No major changes on today's evaluation. The patient is essentially stable. 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 He remains on oxygen at 15 L along with 100% nonrebreather facemask.
[2021-03-03] MEDS: SENNOSIDES-DOCUSATE SODIUM 1 EACH TAB PO SCH (20:50)
[2021-03-03] MEDS: ZOLPIDEM 5 MG TAB PO PRN (20:51)
[2021-03-04] MEDS: PANTOPRAZOLE 40 MG TABLET PO SCH ×2 (06:35→16:54)
[2021-03-04 08:11] LABS: Basophils % (A) 0 %; Eosinophils # (A) 0.1 k/uL (0-0.7); Eosinophils % (A) 1 %; HCT 39.9 % (39.0-53.0); HGB 13.5 gm/dL (13.0-17.5); Lymphocytes # (A) 1.1 k/uL (1.0-4.8); Lymphocytes % (A) 9 %; MCHC 33.8 g/dL (31.0-37.0); MCV 94.7 fL (80.0-100.0); Mean Platelet Volume 7.9; Monocytes # (A) 0.8 k/uL (0-1.0); Monocytes % (A) 6 %; Neutrophils % (A) 82 %; Platelet Count 202 k/uL (150-450); RBC 4.22 m/uL (4.30-5.90); RDW 14.5 % (11.5-15.5); WBC 12.1 k/uL (3.8-10.6)
--- NOTE | 2021-03-04 08:30 | P.PN ---
Subjective Progress Note Date: 03/04/21 HISTORY OF PRESENT ILLNESS: This is a 56-year-old male with a past medical history significant for hypertension and hypertensive cardiovascular disease, hyperlipidemia, history of tobacco use and dependence, presented to the emergency department at [facility] with increased coughing and increased shortness breath that started last and has been getting worse over the last few days, yesterday he was extremely short of breath and his oxygen saturation was in the low 70s, his tried to get him to the ER but eventually called 911 and the patient was brought into the ER at [facility] where he had a chest x-ray that did show evidence of bilateral patchy infiltrate suggestive of Covid pneumonia, his COVID-19 PCR was positive, patient was started on nonrebreather, and later on was seen in consultation by pulmonary medicine and he was placed on Airvo and was started on Bacitinib 4 mg po daily and the patient was admitted to the hospital for further evaluation and treatment. 02/05: A shunt is currently on AirVol. He has complained of feeling tired and complaining of gastric reflux. Protonix will be increased to 40 mg IV push twice daily. Patient is been seen by pulmonary medicine and started on Baricitinib, continued on dexamethasone 6 mg twice daily, Lovenox 40 mg daily. He has been afebrile, heart rate 92, blood pressure 137/86, pulse ox 97%. Repeat blood work reveals WBC 2.2, d-dimer 3.33, blood sugar 143. LDH 735, C-r eactive protein 15.5. Chest x-ray reveals chronic emphysematous and pulmonary fibrotic changes with bilateral multifocal reticular nodular opacities consistent with COVID-19. Perhaps slight improvement in the right lung base. Ultrasound of bilateral lower extremities negative for DVT. 02/06: Last evening, patient was transferred into the intensive care unit as he was on 15 L nonrebreather was transitioned over to AirVo 60 L 90% with nonrebreather on top. Pulse ox is currently running 84-87%. He has been afebrile, heart rate in the 80s and 90s, respiratory rate 29, blood pressure 131/82. Patient is requesting Cepacol lozenges and nasal spray added. Ensure 3 times daily also added, patient has decreased appetite and limited oral intake. Repeat blood work reveals WBC 4.9, hemoglobin 13.6. Platelet count 381. D- dimer 2.15. LDH 1685. C-reactive protein 5.6. Repeat chest x-ray revealed continue his Covid infiltrate superimposed on bollous emphysema. Slight improvement in aeration in the right upper lobe. Patient is continued on dexamethasone, Lovenox, vitamin supplements and Baricitinib. 02/07:patient remains in the intensive care unit. He is on nonrebreather mask as well as high flow AirVo with O2 at 60 L, FiO2 90%. patient remains afebrile, heart rate in the 70s, respiratory rate 26, blood pressure 127/79, pulse ox 86- 88%, pulse ox drops in the low 80s when patient ate's. He is on ensure 3 times daily. Patient is complaining of some cough and back pain when he coughs. He is less fatigued today. 02/08: Patient remains in intensive care unit currently on nonrebreather, as well as a high flow airflow oxygen still borderline at 89%, patient is eating his protein, hysterectomy 8 his breakfast, he has no chest pain at this time he continues to be extreme short of breath, he has no abdominal pain, he had lost some of the states, he has no headache, he has no hemoptysis, he has no pleurisy, he has no edema. 02/09: Patient sitting up in a chair his feeling a bit better. He continues to be on nonrebreather along with airflow 60 L, he denies any chest pain, his continues to be somewhat short of breath, he continues to struggle with breathing, has no abdominal pain, he had a good bowel movement yesterday, he is tolerating his food, patient is stable at this point in time, he will stay in the intensive care unit due to his oxygen requirement, chest x-ray showed bilateral diffuse infiltrate suggestive of Covid pneumonia, he continues to be on Decadron 6 mg orally twice every day, we'll continue conservative management continue supportive care continue Baricitinib daily for a total of 14 doses today is 08/10 02/10: Patient is feeling better today he continues to be on airVO and NRB, continues to require a lot of oxygen, sitting up and eating his breakfast, he has no chest pain, no pleurisy, he does competitive achiness in the back of his legs, he is current;y on Baricitinib Day #6 out of 14. 02/11: Patient is seen today in the ICU. He is on AirVo had 90% 60 L and nonrebreather is used as needed. Patient is more mobile in his room. He has been afebrile, heart rate 81 and 96, blood pressure 127/72 area pulse ox 87-95%. Repeat blood work reveals WBC 15.5. Electrolytes normal. BUN 27 creatinine 0.84. Blood sugar 145. Liver function tests were normal. Patient is on regular diet and protein supplements. He is continued on Baricitinib, oral dexamethasone, Lovenox and supplements. 02/12: Patient remains in intensive care unit. He is on AirVo plus nonrebreather but he is keeping NRB in place except for oral intake. He has b een afebrile, heart rate 89, respiratory rate 23-30, blood pressure 132/75, pulse ox 90%. CTA of the chest showed no pulmonary embolism. Small pericardial effusion. Extensive emphysematous changes and/or pulmonary fibrosis. Patient is on regular diet and protein supplements. No vomiting or diarrhea. WBC 14.2. Creatinine 0.76. Blood sugar 142. ALT 71. 02/13: Patient is currently on AirVo and nonrebreather with pulse ox 82-96%. He has been afebrile, heart rate in the 90s, respiratory rate 19-36. Blood pressure 132/84. WBC 17.9. Sodium 134. Blood sugar 125. Patient is continued on supplements, Baricitinib, dexamethasone and Lovenox. 02/14: Patient remains in the intensive care unit on airvo and nonrebreather. He states he was up in a chair for a little while yesterday. He still has coughing, no fever or chills. He is taking protein supplement. Patient has been afebrile, heart rate 97, blood pressure 139/88, respiratory rate 24, pulse ox 92%. WBC 17.6. Sodium 131. Patient is continued on supplements, Baricitinib, dexamethasone and Lovenox. 02/15: Patient remains in the intensive care unit on AirVo and nonrebreather with pulse ox of 94%. Patient's been afebrile, heart rate 86, respiratory rate 22, blood pressure 120/75. Review blood work reveals WBC 21. AST 82, ALT 229. Sodium 131, potassium 4.8, creatinine 0.88. Patient is complaining of oral pain, grinding his teeth. Patient is continued on supplements, Baricitinib, dexamethasone and Lovenox. 02/16: Patient moved out of the ICU, his currently in the telemetry unit, his monitor showing sinus tachycardia with PACs, he continues to be on airVo and nonrebreather his oxygen is about 93%, it does drop to 88-89% with activity and exertion, he continues to be generally weak, he has no chest pain at this time, he has no pleurisy, there is no hemoptysis, he has no abdominal pain, nausea or vomiting, he seems to be tolerating her treatment very well. 02/17: Patient is about the same he continues to be in a telemetry unit, he continues to have sinus tachycardia, he continues to be on same oxygen he continues to be about the same, he is currently maintained on Decadron as well as Baricitinib for a total of 14 doses, we will continue to monitor his liver function tests, and as he continues to have transaminitis., Patient denies any chest pain at this time he has no abdominal pain, nausea vomiting or diarrhea. 02/18: Patient is seen sitting up in a chair today. He is on AirVO nonrebreather with pulse ox 92%. His been afebrile, heart rate 112, blood pressure 128/73. Patient is currently on dexamethasone, Lovenox and vitamin supplements. He has completed his course of Baricitinib. Repeat blood work reveals WBC 31.2, hemoglobin 15, platelet count 601. Sodium 131, potassium 4.7, chloride 97, CO2 25, BUN 32 creatinine 0.8. Blood sugars are running between 117 and 130s. AST is 198, ALT 875. Alkaline phosphatase 82. 02/19: Patient is currently on AirVo only with pulse ox of 8792%. He has been afebrile, heart rate 107, blood pressure 114/77. Have any nausea vomiting, no diarrhea. He states he is feeling better from yesterday. No repeat chest x-ray is scheduled for today. Repeat blood work will be ordered for tomorrow. Patient is been monitored closely and followed by the pulmonary service since admission. Currently he is on 60 L oxygen via high flow nasal cannula with FiO2 of 68%. Slightly tachypneic and got short of breath when he talks. Labs reviewed WBC 23k, d-dimer 0.75, sodium slightly low 129, potassium slightly high at 5.3, liver enzymes slightly elevated, lactate dehydrogenase is elevated 1114. Poorcalcitonin is 0.19, was 0.08. Chest x-ray showing COPD with patchy bilateral Covid pneumonia. Patient currently kept on dexamethasone 6 mg daily, vitamin C, vitamin D and zinc. Also he is on Pepcid and Lovenox. 02/22/2021 Patient reports some improvement in his shortness of breath. Today following a T-max trying to wean him down with lowering oxygen requirement 60 down to 40 L per minute with FiO2 68 down to 50% this morning. Patient is to cardiac and more tachypneic during these attempts for now, we will keep monitoring. However he does not report any worsening dyspnea. Sodium improved to 134, potassium down to 5.0. He remains on dexamethasone and multiple vitamins. Also he is on Lovenox and Pepcid We will keep monitoring 02/23/2021 Patient today show significant improvement with drop of oxygen requirement down to 15 L/m, patient reports more easier breathing. No much coughing. WBC 20 2K, d-dimer is stable at 0.7. Potassium normal at 4.3. Lactate dehydrogenase still elevated but stable at 1023. Patient remains on the same treatment of dexamethasone, multiple vitamins, Lovenox and Pepcid 02/24/2021 Patient awake and alert, he feels generally weak, significantly dyspneic while talking. Looks more tired and lethargic. Patient is hypoxic requiring 15 L/m nonrebreather and interval of 40 L at 50%, he is tachypneic and tachycardic. Heart rate around 119. Chest x-ray: Chronic parenchymal changes with left mid lung and bibasilar opacities consistent with known covid 19 infection. No significant change. Patient remains on vitamin C, D and zinc, dexamethasone, Lovenox and Pepcid 02/25: Patient is on nonrebreather and AirVo pulse ox of 91%. He's been afebrile, heart rate 118, blood pressure 1 3472. Patient complains of feeling tired. Repeat chest x-ray ordered, Lasix at 40 mg IV every 12 hours, Mucinex ordered. WBC 20.1. Magnesium 2.5. LDH 1039, C-reactive protein 4.3, pro-calcitonin 0.16. Patient is continued on dexamethasone, Lovenox and vitamin supplements. 02/26: Pulse ox is running 89 and 99% with nonrebreather at 15 L and high flow nasal cannula at 15 L. He remains afebrile, heart rate 113, respiratory rate 24, blood pressure 117/72. No repeat blood work today. Patient states he slept well last night but he was having cramps yesterday most likely from diuresing. He did have 3000 ml urine out and Lasix decreased to once daily. Patient has less lower extremity edema and lower extremity ultrasound bilaterally ordered. Patient was complaining of back discomfort for which baclofen will be ordered. Repeat blood work and chest x-ray for tomorrow. Chest x-ray from yesterday reveals coarse basilar infiltrates unchanged from prior study. 02/27: Patient is now on 15 L nonrebreather, off AirVo.. His pulse ox is 95%. He's been afebrile, heart rate 114, respiratory rate 25, blood pressure 130/84. Patient has decreased lower extremity edema will be continued on Lasix 40 mg IV daily. He had a repeat Covid test done yesterday which was positive. Repeat chest x-ray reveals diffuse bilateral lung infiltrates stable. Venous Doppler bilateral lower extremity negative for DVT. 02/28: Patient is seen in follow-up today. He is resting and recliner. He has been afebrile, heart rate 110, blood pressure 122/72, respiratory rate 18-24, pulse ox 97% on high flow nasal cannula and AirVo. Repeat blood work reveals sodium 134, potassium 5.0, chloride 98, CO2 29, BUN 37 creatinine 0.86. Blood sugar 131. Patient is continued on vitamin supplements, dexamethasone, Lovenox. 03/01: The patient is now on nonrebreather only at 15 L with pulse ox of 95%. His been afebrile, heart rate 113, blood pressure 147/75. athletic monitor is a sinus rhythm. Patient's breathing status overall is improving but he still has significant shortness of breath with minimal activity. Patient continues to have cough with mild sputum production. We'll plan to remove Cheek catheter tomorrow morning. Cheek catheter was placed as patient was de-satting when he tried to stand to urinate. Urinalysis was also be obtained at that time. 03/02: Patient continues to feel a bit better, he is currently on 15 L along with an nonrebreather, he denies any chest pain his less short of breath, he continues to emboly very carefully, his appetite is okay, he has no diarrhea, he has no pleurisy, he has no hemoptysis, the swelling in both lower extremities are better, we'll continue with supportive care, patient is complaining of increased constipation stool softener along with MiraLAX will be added. 03/03: Patient sitting up in bed is feeling better today, he still didn't have a bowel movement, MiraLAX will be admitted, along with the Senokot 2 tablet a day, continue activity, continue Decadron 6 mg orally once every day, continue to monitor the patient very closely, continue oxygen support with 15 L an nonrebreather as needed, patient appears to be a lot better today than he was yesterday we'll continue to monitor very closely. 03/04: Patient had a bowel movement yesterday after medications. He states his breathing is little bit better today. He's been on high flow nasal cannula 15 L an nonrebreather with pulse ox running between 91 and 95%. He has been afebrile, heart rate 109, blood pressure 124/76. Blood work this morning is pending at the time of this dictation. Patient is continued on Lovenox, dexamethasone oral and vitamin supplements. Patient is followed closely by pulmonary medicine. REVIEW OF SYSTEMS: Constitutional: Denies fever, chills, night sweats. No weight change. positive for weakness, reports fatigue no lethargy. Denies daytime sleepiness. HEENT: No headache. No nasal drainage or congestion. No epistaxis. Reports sore throat. Lungs: Continued shortness of breath with oxygen therapy slowly improving, positive for cough, positive for white sputum production. No wheezing. Reports dyspnea with minimal activity. Cardiovascular: No chest pain, no lower extremity edema. No palpitations. No paroxysmal nocturnal dyspnea. No orthopnea. No lightheadedness or dizziness. No syncopal episodes. Abdominal: denies abdominal pain. No nausea, vomiting. Denies diarrhea. No constipation. No bloody or tarry stools. Reports loss of appetite. Genitourinary: No dysuria, increased frequency, urgency. No urinary retention. Musculoskeletal: positive for myalgias. positive for generalized muscle weakness, no gait dysfunction, no frequent falls. Reports back pain. No neck pain. Integumentary: No wounds, no lesions. No rash or pruritus. No unusual bruising. Neurologic: No aphasia. No facial droop. No change in mentation. No head injury. No headache. No paralysis. No paresthesia. Psychiatric: No depression. No anxiety. Endocrine: Mildly abnormal blood sugars. PHYSICAL EXAMINATION: General: 56-year-old male sitting in recliner no acute respiratory distress at rest. Patient appears to be more comfortable. HEENT: Head is atraumatic, normocephalic, pupils were equal round, sclera nonicteric, conjunctivae were pale. Neck: Supple, no JVP, normal carotid upstroke bilaterally, no lymphadenopathy. Chest: Decreased breath sounds at the bases, few rhonchi, no chest wall tend erness, no intercostal retractions at rest. Heart: First heart sound is normal, second heart sounds normal, there is no gallop or murmur. Abdomen: Soft, nontender, nondistended, positive bowel sounds, no hepatosplenomegaly. Cheek catheter draining clear helga urine. Extremities: There is 1+ edema no calf tenderness DP +2 bilaterally. Neurologic examination: Patient is awake alert and oriented X 3, cranial nerves II-12 appear grossly intact. ASSESSMENT AND PLAN: 1. Acute hypoxemic respiratory failure due to bilateral patchy interstitial pneumonia due to COVID-19 pneumonia and sepsis (POA). Continue patient on Lovenox 40 mg subcu daily, Decadron 6 mg orally every day, Vitamin C 1000 mg orally once every day, zinc 220 mg once every day, vitamin D 1000 units once e very day, completed course of Baricitinib, continue oxygen therapy on nonrebreather. Continue Lasix 40 mg orally once every day. 2. Bilateral Covid pneumonia with ARDS. Continue with failure oxygen plus nonrebreather, continue dexamethasone 6 mg orally every day, continue with supportive care. 3. Mild non-anion gap metabolic acidosis. Resolved. 4. Moderate protein calorie malnutrition secondary to decreased appetite and difficulty eating with oxygen mask. Continue Ensure 3 times daily. 5. Acute drug-induced hepatitis. Monitor the patient CMP. 6. DVT prophylaxis. Continue Lovenox 40 mg subcutaneously every 24 hours 7. GERD and GI prophylaxis. Continue patient on Protonix 40 mg oral twice daily. 8. Constipation. 10 units Senokot 2 tablet at bedtime along with MiraLAX 17 g in 8 ounces water once every day. 9. Patient is full code. 10. Guarded prognosis. DISCHARGE PLAN Home most likely with home care and oxygen therapy. Impression and plan of care have been directed as dictated by the signing physician. Viridiana Baker nurse practitioner acting as scribe for signing physician. Objective - Vital Signs Vital signs: Vital Signs Temp 96.9 F L 03/03/21 21:10 Pulse 109 H 03/04/21 04:22 Resp 20 03/04/21 04:22 BP 124/76 03/04/21 04:22 Pulse Ox 91 L 03/04/21 04:22 Intake & Output 03/03/21 03/04/21 03/04/21 18:59 06:59 18:59 Intake Total 720 Output Total 1070 900 Balance -350 -900 Weight 77.7 kg Intake: Oral 720 Output: Urine 1070 900 Other: Voiding Method Urinal Urinal - Labs CBC & Chem 7: 03/04/21 07:33 03/01/21 08:40
[2021-03-04 08:35] LABS: ALT 86 U/L (4-49); AST 29 U/L (17-59); African American GFR (CKD) >90 (>60 ml/min/1.73 sqM); Albumin 3.7 g/dL (3.5-5.0); Alkaline Phosphatase 85 U/L (38-126); Anion Gap 6 mmol/L; Blood Urea Nitrogen 41 mg/dL (9-20); C Reactive Protein 2.6 mg/dL (<1.0); Calcium 9.7 mg/dL (8.4-10.2); Carbon Dioxide 32 mmol/L (22-30); Chloride 103 mmol/L (98-107); Glucose 110 mg/dL (74-99); LDH 900 U/L (313-618); Magnesium 2.5 mg/dL (1.6-2.3); Non-African American GFR(CKD) >90 (>60 ml/min/1.73 sqM); Potassium 5.1 mmol/L (3.5-5.1); Sodium 141 mmol/L (137-145); Total Bilirubin 0.5 mg/dL (0.2-1.3); Total Protein 6.4 g/dL (6.3-8.2)
[2021-03-04] MEDS: ENOXAPARIN 40 MG/0.4 ML SYRINGE SQ SCH (08:44)
[2021-03-04] MEDS: ASCORBIC ACID 500 MG TAB PO SCH (08:44)
[2021-03-04] MEDS: POTASSIUM CHLORIDE ER 20 MEQ TAB.ER PO SCH (08:44)
[2021-03-04] MEDS: FUROSEMIDE 40 MG TAB PO SCH (08:45)
[2021-03-04] MEDS: guaiFENesin 600 MG TABLET.ER PO SCH ×2 (08:45→20:40)
[2021-03-04] MEDS: ZINC SULFATE 220 MG CAP PO SCH (08:45)
[2021-03-04] MEDS: CHOLECALCIFEROL 25 MCG (1000 IU) TABLET PO SCH (08:45)
[2021-03-04] MEDS: dexAMETHasone 2 MG TAB PO SCH (08:46)
[2021-03-04] MEDS: MULTIVITAMINS, THERA 1 EACH TAB PO SCH (08:46)
[2021-03-04] MEDS: SENNOSIDES-DOCUSATE SODIUM 1 EACH TAB PO SCH ×2 (08:46→20:40)
[2021-03-04] MEDS: polyethylene glycoL 3350 17 GM POWD.PACK PO SCH (08:47)
[2021-03-04] MEDS: ALPRAZolam 0.25 MG TAB PO PRN (16:54)
[2021-03-04] MEDS: BACLOFEN 10 MG TAB PO PRN (16:54)
--- NOTE | 2021-03-04 16:58 | CT ---
EXAMINATION TYPE: CT angio chest DATE OF EXAM: 03/04/2021 COMPARISON: 02/11/2021 HISTORY: Shortness of breath. CT DLP: 355.8 mGycm Automated exposure control for dose reduction was used. CONTRAST: Performed with IV Contrast, patient injected with 100 mL of Isovue 370. There are 3-D post processed images. There is extensive bullous pulmonary emphysema. There is coarse honeycomb pattern throughout the lung [place]. Heart size is normal. There is small pericardial effusion. There is no pleural effusion. There is no mediastinal adenopathy. There are no hilar masses. There is normal contrast opacification of the pulmonary arteries. There are no filling defects. Upper abdominal soft tissues are intact. Th e bony thorax is intact. IMPRESSION: No evidence of pulmonary embolism. Advanced pulmonary emphysema and pulmonary fibrosis. No change com pared to old exam. Small pericardial effusion is slightly improved compared to old exam.
--- NOTE | 2021-03-04 18:15 | P.PN ---
Subjective Progress Note Date: 03/04/21 Principal diagnosis: Acute hypoxic respiratory failure secondary to COVID-19 pneumonia 02/09/2021, patient is essentially unchanged. Remains on Airvo at 60 L an FiO2 of 90% along with a nonrebreather facemask. Chest x-ray findings are essentially stable with diffuse bilateral pulmonary infiltrates, unchanged with daily comparison. He remains on a combination of Decadron and Baricitinib and the patient is also on Lovenox 40 mg subcu every 12 hours. Inflammatory markers from today was noted. There is a slight drop the LDH which is currently down to 1513. CRP is down to 1.8, and the d-dimer currently is at 13.9. No other significant events overnight. The patient continues to desaturate easily. No interval worsening shortness of breath. His condition is overall stable. We'll keep him on the same oxygen setting which is a Airvo at 60 L along with 100% nonrebreather facemask for now. He is tolerating his diet. No nausea. No vomiting. No altered mentation. She was given a dose of Lasix yesterday with excellent urine output and he has a negative fluid balance is. His IV fluids currently are KVO 02/10/2021, the patient's condition remains essentially unchanged. His condition is stable. He remains on high flow oxygen at 6 L with an FiO2 of 90% along with 100% nonrebreather facemask. Yesterday, while being transported to have a bowel movement, the patient desaturated and however following his saturation was able to overcome that his situation gradually improved and is currently above 90%. His white cell count is 14.8. His d-dimer is down to 10.9. The rest of the inflammatory markers are also improving and the patient has an LDH of 1395 and his CRP is down to 1.4. He remains on a combination of Decadron and Baricitinib. He is also on Lovenox for DVT prophylaxis. No other new complaints. No fever. He is tolerating his diet. No oropharyngeal candidiasis. Using incentive spirometer. No signs of any fluid overload. IV fluids are currently at KVO and the patient was given a dose of Lasix yesterday. 02/11/2021, patient remains in the ICU, remains on airvo, and 60% slow and 90% FiO2, his IV fluid is at KVO, patient remains marginal and his O2 saturation is barely in the low 90s. Patient tells me that his feeling better today, breathing easier. D-dimer was noted to be elevated, hence I recommended a CT angiogram of the chest, mostly because of the findings on the chest x-ray did not correlate with his profound degree of hypoxia and desaturation. WBC count today is 15.5 hemoglobin 13.9. D-dimer today is 10.98 electrolytes are normal renal profile is normal, in the meantime I'm going to recommend that we increase the dose of Lovenox. Venous Doppler on 02/05 was negative for deep vein thrombosis. 02/12/2021, patient remains in the ICU, remains on high flow oxygen, he is on airvo at 90% and 60 L flow, patient is basically about the same as yesterday, not much of a change, he does seem to be comfortable, his O2 saturation remains marginal in the low 90s. His CT angiogram of the chest was negative for pulm onary embolism. WBC count today is 14.2 hemoglobin 14.1. D-dimer was 10.98 yesterday. Again he had a negative CT angiogram of the chest. And negative Doppler of the legs. Electrolytes are normal renal profile is normal. Patient remains on the COVID-19 cocktail, he is also on Lovenox 40 mg subcu twice a day, he is still on baricitinib and on Decadron at 6 mg by mouth twice a day. He is on GI prophylaxis. Not quite ready to be transferred out of the ICU, but if he remains about the same, may transfer the patient out to the floor in the next 24 hours. 02/13/2021, patient remains in the ICU, remains on high oxygen, no change since yesterday, patient is feeling clinically a bit better, breathing easier, but his overall status is basically the same. O2 saturation remains very marginal in the low 90s. Patient is afebrile. He is hemodynamically stable. WBC count of 17.9 hemoglobin is 13.9, basic metabolic profile is normal renal profile is normal. CT angiogram showed no evidence of thrombus embolic disease. Patient remains on Lovenox 40 mg subcu twice a day 4 elevated d-dimer. Remains on baricitinib, and on the rest of the COVID-19 cocktail including Decadron 6 mg by mouth twice a day. Reevaluated today on 02/14/2021, patient is basically the same compared to yesterday and compared to the last few days. Remains on high flow oxygen, patient is on 90%, 60 L flow, and he is also on non-rebreather mask. O2 saturations remained marginal, patient is feeling better clinically. Not much of a change management facilitator the last couple of days. WBC count is the same as yesterday 17.6. CBC is relatively normal. Renal profile is normal. Liver enzymes are a bit elevated. Last LDH few days ago was 1395 and C-reactive protein 1.4. The patient is seen today 02/15/2021 in follow-up in the intensive care unit. He is currently still requiring AirVo high flow oxygen at 60 L and 90% FiO2 with a nonrebreather mask. He is doing about the same compared to yesterday. No worsening shortness of breath. His appetite remains good. Chest x-ray continues to show patchy basilar infiltrates. Unchanged. We count 21.0. Hemoglobin 14.7. Platelets 656. Lymphocytes 0.63. Sodium 131. Potassium 4.8. Creatinine 0.88. AST 86. ALT 229. He is continued on Baricitinib, Decadron, Lovenox vitamin supplements. No IV fluids currently. Reevaluated today on 02/16/2021, patient remains on high flow oxygen, he is presently on airvo at 85% and 60 L flow. O2 saturation is in the low 90s. Clinically the patient is feeling a bit better, breathing a bit easier, nonetheless he continues to remain on relatively high flow oxygen. Patient is noted to have leukocytosis today with WBC of 26.8 hemoglobin is 15.1. He is afebrile. And I am a bit concerned about his white count steadily going up. Chest x-ray 2 days ago continues to show bilateral infiltrates. I will recommend checking a broken stone in level on this patient, and if elevated may start him on antibiotics and discontinue baricitinib Reevaluated today on 02/17/21, patient remains on high flow oxygen. He is actually on 90% FiO2, 40 L flow, and his O2 saturation is ranging between 90-93% at best. Clinically however the patient tells me that his feeling better, breathing easier, he has a good appetite, and he is sleeping well. Pro- calcitonin level came back 0.08, hence the possibility of underlying bacterial pneumonia is very unlikely. Chest x-ray showed relatively no change in his bilateral infiltrates. Basically about the same. WBC count remains elevated at 26.3 hemoglobin 14.2 electrolytes and renal profile are normal 03/03/21, the patient has no new complaints. Resting comfortably in his recliner on 15 L of oxygen by nasal cannula. He is also on 100% nonrebreather fullface mask. The patient is doing well. No specific complaints. The patient remains on Decadron 6 mg by mouth daily. The patient also remains on Lasix 40 mg by mouth daily and anticoagulation with Lovenox 40 mg subcu daily basis. Tolerating his diet. Communicating. Able to speak up for language is no signs of any infection. Current pulse ox is around 88-92% on the above-mentioned oxygen flow. Reevaluated today on 03/04/21, patient is basically about the same, not much improvement noted over the last a few weeks. Remains on high flow oxygen at 15 L/m, O2 saturation is ranging anywhere between 89-95%. Patient seems to be quite dyspneic during my evaluation, hence I recommended a stat CT angiogram of the chest, and there was no evidence of thromboembolic disease, no evidence of pulmonary embolism. Patient remains on the COVID-19 cocktail remains on Decadron 6 mg by mouth daily remains on Lovenox 40 mg subcu daily remains on Lasix 40 mg by mouth daily and overall I believe the patient is not showing a dramatic improvement although he has been in the hospital for quite some time. Objective - Vital Signs Vital signs: Vital Signs Temp 96.6 F L 03/04/21 15:10 Pulse 122 H 03/04/21 15:10 Resp 24 03/04/21 15:10 BP 126/84 03/04/21 15:10 Pulse Ox 95 03/04/21 15:10 Intake & Output 03/03/21 03/04/21 03/04/21 18:59 06:59 18:59 Intake Total 720 720 Output Total 3278 650 0564 Balance -350 -900 -580 Weight 77.7 kg Intake: IV 20 Invasive Line 5 10 Invasive Line 6 10 Oral 720 700 Output: Urine 6515 419 2380 Other: Voiding Method Urinal Urinal Urinal # Voids 1 - Exam Physical Exam: Revealed a 56-year-old white male in no distress on high flow oxygen. Head: Atraumatic, normocephalic. HEENT:[Neck is supple.] [No neck masses.] [No thyromegaly.] [No JVD.] Lexi, EOMI, nonicteric, Chest: [Symmetrical chest expansion, crackles at the bases. No rhonchi no wheezes. Cardiac Exam: [Normal S1 and S2, no S3 gallop, no murmur.] Abdomen: [Soft, nontender, no megaly, no rebound, no guarding, normal bowel sounds.] Extremities: [No clubbing, no edema, no cyanosis.] Neurological Exam: Alert and oriented 3. [No focal neurologic deficit.] Psychiatric: Normal mood affect, normal mental status. - Labs CBC & Chem 7: 03/04/21 07:33 03/04/21 08:02 Labs: Abnormal Lab Results - Last 24 Hours (Table) 03/04/21 03/04/21 03/04/21 Range/Units 07:33 08:02 10:55 WBC 12.1 H (3.8-10.6) k/uL RBC 4.22 L (4.30-5.90) m/uL Neutrophils # 10.0 H (1.3-7.7) k/uL D-Dimer 1.02 H (<0.60) mg/L FEU Carbon Dioxide 32 H (22-30) mmol/L BUN 41 H (9-20) mg/dL Glucose 110 H (74-99) mg/dL Magnesium 2.5 H (1.6-2.3) mg/dL ALT 86 H (4-49) U/L Lactate Dehydrogenase 900 H (313-618) U/L C-Reactive Protein 2.6 H (<1.0) mg/dL Assessment and Plan Assessment: Acute hypoxic respiratory failure secondary to COVID-19 pneumonia Elevated inflammatory markers and d-dimer secondary to COVID-19 infection. Benign essential hypertension. Leukocytosis, no clear-cut evidence of bacterial infection Recommendation: Continue to titrate oxygen accordingly. Continue Decadron Finished a full course of baricitinib Continue Lovenox at 40 mg subcu daily, CT angiogram of the chest negative for pulmonary embolism We'll continue to follow. Time with Patient: Less than 30
[2021-03-04] MEDS: ZOLPIDEM 5 MG TAB PO PRN (20:40)
[2021-03-05] MEDS: PANTOPRAZOLE 40 MG TABLET PO SCH ×2 (06:16→17:47)
[2021-03-05] MEDS: ZINC SULFATE 220 MG CAP PO SCH (08:55)
[2021-03-05] MEDS: ASCORBIC ACID 500 MG TAB PO SCH (08:55)
[2021-03-05] MEDS: guaiFENesin 600 MG TABLET.ER PO SCH ×2 (08:55→20:07)
[2021-03-05] MEDS: ENOXAPARIN 40 MG/0.4 ML SYRINGE SQ SCH (08:56)
[2021-03-05] MEDS: POTASSIUM CHLORIDE ER 20 MEQ TAB.ER PO SCH (08:56)
[2021-03-05] MEDS: MULTIVITAMINS, THERA 1 EACH TAB PO SCH (08:56)
[2021-03-05] MEDS: polyethylene glycoL 3350 17 GM POWD.PACK PO SCH (08:56)
[2021-03-05] MEDS: SENNOSIDES-DOCUSATE SODIUM 1 EACH TAB PO SCH ×2 (08:56→20:07)
[2021-03-05] MEDS: CHOLECALCIFEROL 25 MCG (1000 IU) TABLET PO SCH (08:56)
[2021-03-05] MEDS: dexAMETHasone 2 MG TAB PO SCH (08:56)
[2021-03-05] MEDS: FUROSEMIDE 40 MG TAB PO SCH (08:56)
--- NOTE | 2021-03-05 15:30 | P.PN ---
Subjective Progress Note Date: 03/05/21 Principal diagnosis: Dyspnea On 02/28/2021 patient seen in follow-up on selective care unit, is currently on Airvo at 40 L and FiO2 of 50% in addition to nonrebreather mask, he is maintaining O2 saturations between 90-94%, she is currently sitting up in the chair, does not appear to be in acute distress, although has exertional dyspnea and conversational dyspnea. Denies any fever or chills, his last chest x-ray was yesterday showed diffuse bilateral lung infiltrates stable in appearance. patient continues on Decadron 6 blood gram daily, Lovenox 40 mg daily, he continues on daily dose of Lasix 40 mg daily, no new labs today. Yesterday's labs have been reviewed, his inflammatory markers overall have been improving through the course of his hospitalization. Last d-dimer was 1.15. His pro calcitonin level has been negative 2. His electrolytes were unremarkable on y esterday's labs, BUN was 37 and creatinine was 0.86. On 03/05/2021 patient seen in follow-up on selective care unit. He is currently on 8 L per high flow nasal cannula, and nonrebreather mask, and his pulse ox is 90-92%, he has been tolerating elevation to the bathroom, does have exertional dyspnea, but overall his FiO2 requirements have decreased when patient was previously on Airvo in addition to the nonrebreather mask. He is awake and alert, no altered mentation, he is oriented 3. No worsening dyspnea, occasional cough, no phlegm production. CT angiogram of the chest shows no evidence of pulmonary embolism, and previous pulmonary emphysema and pulmonary fibrosis. Small pericardial effusion slightly improved compared his old exam. Patient is currently on Decadron 6 mg daily, he is on COVID-19 vitamins, and prophylactic Lovenox 40 mg daily. Objective - Vital Signs Vital signs: Vital Signs Temp 97.7 F 03/05/21 12:00 Pulse 106 H 03/05/21 13:54 Resp 24 03/05/21 13:54 BP 126/85 03/05/21 12:00 Pulse Ox 92 L 03/05/21 12:00 Intake & Output 03/04/21 03/05/21 03/05/21 18:59 06:59 18:59 Intake Total 720 180 Output Total 1300 350 Balance -580 -350 180 Weight 78.4 kg Intake: IV 20 Invasive Line 5 10 Invasive Line 6 10 Oral 700 180 Output: Urine 1300 350 Other: Voiding Method Urinal Urinal Urinal # Voids 1 # Bowel Movements 1 - Exam GENERAL EXAM: Alert, 56-year-old white male, 8 L per high flow nasal cannula in addition to nonrebreather mask with a pulse ox of 90-92% HEAD: Normocephalic/atraumatic. EYES: Normal reaction of pupils, equal size. Conjunctiva pink, sclera white. NOSE: Clear with pink turbinates. THROAT: No erythema or exudates. NECK: No masses, no JVD, no thyroid enlargement, no adenopathy. CHEST: No chest wall deformity. Symmetrical expansion. LUNGS: Equal air entry with diffuse crackles CVS: Regular rate and rhythm, normal S1 and S2, no gallops, no murmurs, no rubs ABDOMEN: Soft, nontender. No hepatosplenomegaly, normal bowel sounds, no guarding or rigidity. EXTREMITIES: No clubbing, no edema, no cyanosis, 2+ pulses and upper and lower extremities. MUSCULOSKELETAL: Muscle strength and tone normal. SPINE: No scoliosis or deformity SKIN: No rashes CENTRAL NERVOUS SYSTEM: Alert and oriented -3. No focal deficits, tone is normal in all 4 extremities. PSYCHIATRIC: Alert and oriented -3. Appropriate affect. Intact judgment and insight. - Labs CBC & Chem 7: 03/04/21 07:33 03/04/21 08:02 Labs: Abnormal Lab Results - Last 24 Hours (Table) 03/04/21 Range/Units 10:55 Procalcitonin 0.11 H (0.02-0.09) ng/mL Assessment and Plan Plan: Assessment: #1. Acute COVID 19 related pneumonia with secondary respiratory failure. Currently on airvo 40 liters and 50% Fio2. Chest x-ray showing diffuse bilateral pulmonary infiltrates consistent with COVID 19 related pneumonia. No interval worsening in his chest x-ray findings. The inflammatory markers including the LDH and CRP are being monitored. D-dimer is also lower. The patient is still on Decadron 6 mg and the patient has completed Baricitinib. The patient remains on Lovenox for DVT prophylaxis. Chest x-ray findings are stable. , Since yesterday, the patient had some worsening shortness of breath and some setback as the patient got himself off the high flow oxygen. Currently is back on 40 L with an FiO2 of 50% along with that he is using 100% nonrebreather facemask and the patient is also demonstrating a stable chest x- ray. He is on anticoagulation. He is on Decadron. Repeat COVID 19 testing was again positive. #2. Acute on chronic shortness of breath secondary to above #3. Advanced pulmonary emphysema and pulmonary fibrosis as seen on the CT angiogram of the chest #4. Former smoker #5. Hypertension and hypertensive cardiovascular disease #6. Hyperlipidemia Plan: Continue weaning FiO2, patient is off Airvo and is currently on high flow nasal cannula and nonrebreather mask Making some headway in terms of FiO2 requirements, although still requiring high flow oxygen Tolerating ambulation Does not seem to be in any acute distress Continue current medical treatment Continue Decadron, Lovenox No evidence of pulmonary embolism on CT angiogram of the chest There is evidence of advanced pulmonary emphysema and pulmonary fibrosis on the CT angiogram of the chest ProCalcitonin was negative We'll continue to follow I performed a history & physical examination of the patient and discussed their management with my nurse practitioner, Shelby Eaton. I reviewed the nurse practitioner's note and agree with the documented findings and plan of care. Lung sounds are positive for dim with basilar crackles throughout the lung tal[place]antes. The findings and the impression was discussed with the patient. I attest to the documentation by the nurse practitioner. Time with Patient: Less than 30
--- NOTE | 2021-03-05 18:23 | P.PN ---
Subjective Progress Note Date: 03/05/21 Progress Note Date: 03/05/21 HISTORY OF PRESENT ILLNESS: This is a 56-year-old male with a past medical history significant for hypertension and hypertensive cardiovascular disease, hyperlipidemia, history of tobacco use and dependence, presented to the emergency department at [facility] with increased coughing and increased shortness breath that started last and has been getting worse over the last few days, yesterday he w as extremely short of breath and his oxygen saturation was in the low 70s, his tried to get him to the ER but eventually called 911 and the patient was brought into the ER at [facility] where he had a chest x-ray that did show evidence of bilateral patchy infiltrate suggestive of Covid pneumonia, his COVID-19 PCR was positive, patient was started on nonrebreather, and later on was seen in consultation by pulmonary medicine and he was placed on Airvo and was started on Bacitinib 4 mg po daily and the patient was admitted to the hospital for further evaluation and treatment. 02/05: A shunt is currently on AirVol. He has complained of feeling tired and complaining of gastric reflux. Protonix will be increased to 40 mg IV push twice daily. Patient is been seen by pulmonary medicine and started on Baricitinib, continued on dexamethasone 6 mg twice daily, Lovenox 40 mg daily. He has been afebrile, heart rate 92, blood pressure 137/86, pulse ox 97%. Repeat blood work reveals WBC 2.2, d-dimer 3.33, blood sugar 143. LDH 735, C- reactive protein 15.5. Chest x-ray reveals chronic emphysematous and pulmonary fibrotic changes with bilateral multifocal reticular nodular opacities consistent with COVID-19. Perhaps slight improvement in the right lung base. Ultrasound of bilateral lower extremities negative for DVT. 02/06: Last evening, patient was transferred into the intensive care unit as he was on 15 L nonrebreather was transitioned over to AirVo 60 L 90% with nonr ebreather on top. Pulse ox is currently running 84-87%. He has been afebrile, heart rate in the 80s and 90s, respiratory rate 29, blood pressure 131/82. Patient is requesting Cepacol lozenges and nasal spray added. Ensure 3 times daily also added, patient has decreased appetite and limited oral intake. Repeat blood work reveals WBC 4.9, hemoglobin 13.6. Platelet count 381. D- dimer 2.15. LDH 1685. C-reactive protein 5.6. Repeat chest x-ray revealed continue his Covid infiltrate superimposed on bollous emphysema. Slight improvement in aeration in the right upper lobe. Patient is continued on dexamethasone, Lovenox, vitamin supplements and Baricitinib. 02/07:patient remains in the intensive care unit. He is on nonrebreather mask as well as high flow AirVo with O2 at 60 L, FiO2 90%. patient remains afebrile, heart rate in the 70s, respiratory rate 26, blood pressure 127/79, pulse ox 86- 88%, pulse ox drops in the low 80s when patient ate's. He is on ensure 3 times daily. Patient is complaining of some cough and back pain when he coughs. He is less fatigued today. 02/08: Patient remains in intensive care unit currently on nonrebreather, as well as a high flow airflow oxygen still borderline at 89%, patient is eating his protein, hysterectomy 8 his breakfast, he has no chest pain at this time he continues to be extreme short of breath, he has no abdominal pain, he had lost some of the states, he has no headache, he has no hemoptysis, he has no pleurisy, he has no edema. 02/09: Patient sitting up in a chair his feeling a bit better. He continues to be on nonrebreather along with airflow 60 L, he denies any chest pain, his continues to be somewhat short of breath, he continues to struggle with breathing, has no abdominal pain, he had a good bowel movement yesterday, he is tolerating his food, patient is stable at this point in time, he will stay in the intensive care unit due to his oxygen requirement, chest x-ray showed bilateral diffuse infiltrate suggestive of Covid pneumonia, he continues to be on Decadron 6 mg orally twice every day, we'll continue conservative management continue supportive care continue Baricitinib daily for a total of 14 doses today is 08/10 02/10: Patient is feeling better today he continues to be on airVO and NRB, continues to require a lot of oxygen, sitting up and eating his breakfast, he has no chest pain, no pleurisy, he does competitive achiness in the back of his legs, he is current;y on Baricitinib Day #6 out of 14. 02/11: Patient is seen today in the ICU. He is on AirVo had 90% 60 L and nonrebreather is used as needed. Patient is more mobile in his room. He has been afebrile, heart rate 81 and 96, blood pressure 127/72 area pulse ox 87-95%. Repeat blood work reveals WBC 15.5. Electrolytes normal. BUN 27 creatinine 0.84. Blood sugar 145. Liver function tests were normal. Patient is on regular diet and protein supplements. He is continued on Baricitinib, oral dexamethasone, Lovenox and supplements. 02/12: Patient remains in intensive care unit. He is on AirVo plus nonrebreather but he is keeping NRB in place except for oral intake. He has been afebrile, heart rate 89, respiratory rate 23-30, blood pressure 132/75, pulse ox 90%. CTA of the chest showed no pulmonary embolism. Small pericardial effusion. Extensive emphysematous changes and/or pulmonary fibrosis. Patient is on regular diet and protein supplements. No vomiting or diarrhea. WBC 14.2. Creatinine 0.76. Blood sugar 142. ALT 71. 02/13: Patient is currently on AirVo and nonrebreather with pulse ox 82-96%. He has been afebrile, heart rate in the 90s, respiratory rate 19-36. Blood pressure 132/84. WBC 17.9. Sodium 134. Blood sugar 125. Patient is continued on supplements, Baricitinib, dexamethasone and Lovenox. 02/14: Patient remains in the intensive care unit on airvo and nonrebreather. He states he was up in a chair for a little while yesterday. He still has coughing, no fever or chills. He is taking protein supplement. Patient has been afebrile, heart rate 97, blood pressure 139/88, respiratory rate 24, pulse ox 92%. WBC 17.6. Sodium 131. Patient is continued on supplements, Baricitini b, dexamethasone and Lovenox. 02/15: Patient remains in the intensive care unit on AirVo and nonrebreather with pulse ox of 94%. Patient's been afebrile, heart rate 86, respiratory rate 22, blood pressure 120/75. Review blood work reveals WBC 21. AST 82, ALT 229. Sodium 131, potassium 4.8, creatinine 0.88. Patient is complaining of oral pain, grinding his teeth. Patient is continued on supplements, Baricitinib, dexamethasone and Lovenox. 02/16: Patient moved out of the ICU, his currently in the telemetry unit, his monitor showing sinus tachycardia with PACs, he continues to be on airVo and nonrebreather his oxygen is about 93%, it does drop to 88-89% with activity and exertion, he continues to be generally weak, he has no chest pain at this time, he has no pleurisy, there is no hemoptysis, he has no abdominal pain, nausea or vomiting, he seems to be tolerating her treatment very well. 02/17: Patient is about the same he continues to be in a telemetry unit, he continues to have sinus tachycardia, he continues to be on same oxygen he continues to be about the same, he is currently maintained on Decadron as well as Baricitinib for a total of 14 doses, we will continue to monitor his liver function tests, and as he continues to have transaminitis., Patient denies any chest pain at this time he has no abdominal pain, nausea vomiting or diarrhea. 02/18: Patient is seen sitting up in a chair today. He is on AirVO nonrebreather with pulse ox 92%. His been afebrile, heart rate 112, blood pressure 128/73. Patient is currently on dexamethasone, Lovenox and vitamin supplements. He has completed his course of Baricitinib. Repeat blood work reveals WBC 31.2, hemoglobin 15, platelet count 601. Sodium 131, potassium 4.7, chloride 97, CO2 25, BUN 32 creatinine 0.8. Blood sugars are running between 117 and 130s. AST is 198, ALT 875. Alkaline phosphatase 82. 02/19: Patient is currently on AirVo only with pulse ox of 8792%. He has been afebrile, heart rate 107, blood pressure 114/77. Have any nausea vomiting, no diarrhea. He states he is feeling better from yesterday. No repeat chest x-ray is scheduled for today. Repeat blood work will be ordered for tomorrow. Patient is been monitored closely and followed by the pulmonary service since admission. Currently he is on 60 L oxygen via high flow nasal cannula with FiO2 of 68%. Slightly tachypneic and got short of breath when he talks. Labs reviewed WBC 23k, d-dimer 0.75, sodium slightly low 129, potassium slightly high at 5.3, liver enzymes slightly elevated, lactate dehydrogenase is elevated 1114. Poorcalcitonin is 0.19, was 0.08. Chest x-ray showing COPD with patchy bilateral Covid pneumonia. Patient currently kept on dexamethasone 6 mg daily, vitamin C, vitamin D and zinc. Also he is on Pepcid and Lovenox. 02/22/2021 Patient reports some improvement in his shortness of breath. Today following a T-max trying to wean him down with lowering oxygen requirement 60 down to 40 L per minute with FiO2 68 down to 50% this morning. Patient is to cardiac and more tachypneic during these attempts for now, we will keep monitoring. However he does not report any worsening dyspnea. Sodium improved to 134, potassium down to 5.0. He remains on dexamethasone and multiple vitamins. Also he is on Lovenox and Pepcid We will keep monitoring 02/23/2021 Patient today show significant improvement with drop of oxygen requirement down to 15 L/m, patient reports more easier breathing. No much coughing. WBC 20 2K, d-dimer is stable at 0.7. Potassium normal at 4.3. Lactate dehydrogenase still elevated but stable at 1023. Patient remains on the same treatment of dexamethasone, multiple vitamins, Lovenox and Pepcid 02/24/2021 Patient awake and alert, he feels generally weak, significantly dyspneic while talking. Looks more tired and lethargic. Patient is hypoxic requiring 15 L/m nonrebreather and interval of 40 L at 50%, he is tachypneic and tachycardic. Heart rate around 119. Chest x-ray: Chronic parenchymal changes with left mid lung and bibasilar opacities consistent with known covid 19 infection. No significant change. Patient remains on vitamin C, D and zinc, dexamethasone, Lovenox and Pepcid 02/25: Patient is on nonrebreather and AirVo pulse ox of 91%. He's been afebril e, heart rate 118, blood pressure 1 3472. Patient complains of feeling tired. Repeat chest x-ray ordered, Lasix at 40 mg IV every 12 hours, Mucinex ordered. WBC 20.1. Magnesium 2.5. LDH 1039, C-reactive protein 4.3, pro-calcitonin 0.16. Patient is continued on dexamethasone, Lovenox and vitamin supplements. 02/26: Pulse ox is running 89 and 99% with nonrebreather at 15 L and high flow nasal cannula at 15 L. He remains afebrile, heart rate 113, respiratory rate 24, blood pressure 117/72. No repeat blood work today. Patient states he slept well last night but he was having cramps yesterday most likely from diuresing. He did have 3000 ml urine out and Lasix decreased to once daily. Patient has less lower extremity edema and lower extremity ultrasound bilaterally ordered. Patient was complaining of back discomfort for which baclofen will be ordered. Repeat blood work and chest x-ray for tomorrow. Chest x-ray from yesterday reveals coarse basilar infiltrates unchanged from prior study. 02/27: Patient is now on 15 L nonrebreather, off AirVo.. His pulse ox is 95%. He's been afebrile, heart rate 114, respiratory rate 25, blood pressure 130/84. Patient has decreased lower extremity edema will be continued on Lasix 40 mg IV daily. He had a repeat Covid test done yesterday which was positive. Repeat chest x-ray reveals diffuse bilateral lung infiltrates stable. Venous Doppler bilateral lower extremity negative for DVT. 02/28: Patient is seen in follow-up today. He is resting and recliner. He has been afebrile, heart rate 110, blood pressure 122/72, respiratory rate 18-24, pulse ox 97% on high flow nasal cannula and AirVo. Repeat blood work reveals sodium 134, potassium 5.0, chloride 98, CO2 29, BUN 37 creatinine 0.86. Blood sugar 131. Patient is continued on vitamin supplements, dexamethasone, Lovenox. 03/01: The patient is now on nonrebreather only at 15 L with pulse ox of 95%. His been afebrile, heart rate 113, blood pressure 147/75. engine monitor is a sinus rhythm. Patient's breathing status overall is improving but he still has significant shortness of breath with minimal activity. Patient continues to have cough with mild sputum production. We'll plan to remove Cheek catheter tomorrow morning. Cheek catheter was placed as patient was de-satting when he tried to stand to urinate. Urinalysis was also be obtained at that time. 03/02: Patient continues to feel a bit better, he is currently on 15 L along with an nonrebreather, he denies any chest pain his less short of breath, he continues to emboly very carefully, his appetite is okay, he has no diarrhea, he has no pleurisy, he has no hemoptysis, the swelling in both lower extremities are better, we'll continue with supportive care, patient is complaining of increased constipation stool softener along with MiraLAX will be added. 03/03: Patient sitting up in bed is feeling better today, he still didn't have a bowel movement, MiraLAX will be admitted, along with the Senokot 2 tablet a day, continue activity, continue Decadron 6 mg orally once every day, continue to monitor the patient very closely, continue oxygen support with 15 L an nonrebreather as needed, patient appears to be a lot better today than he was yesterday we'll continue to monitor very closely. 03/04: Patient had a bowel movement yesterday after medications. He states his breathing is little bit better today. He's been on high flow nasal cannula 15 L an nonrebreather with pulse ox running between 91 and 95%. He has been afebrile, heart rate 109, blood pressure 124/76. Blood work this morning is pending at the time of this dictation. Patient is continued on Lovenox, dexamethasone oral and vitamin supplements. Patient is followed closely by pulmonary medicine. 03/05: Patient sitting up in the chair continued to be on nonrebreather along with 8 L, he continues to be somewhat short of breath with minimum exertion, his computed tomography scan of the chest showed evidence of pulmonary fibrosis with severe emphysema without evidence of pulmonary embolism, he continues to be on Decadron, we'll continue to follow the patient very closely. REVIEW OF SYSTEMS: Constitutional: Denies fever, chills, night sweats. No weight change. positive for weakness, reports fatigue no lethargy. Denies daytime sleepiness. HEENT: No headache. No nasal drainage or congestion. No epistaxis. Reports sore throat. Lungs: Continued shortness of breath with oxygen therapy slowly improving, positive for cough, positive for white sputum production. No wheezing. Reports dyspnea with minimal activity. Cardiovascular: No chest pain, no lower extremity edema. No palpitations. No paroxysmal nocturnal dyspnea. No orthopnea. No lightheadedness or dizziness. No syncopal episodes. Abdominal: denies abdominal pain. No nausea, vomiting. Denies diarrhea. No constipation. No bloody or tarry stools. Reports loss of appetite. Genitourinary: No dysuria, increased frequency, urgency. No urinary retention. Musculoskeletal: positive for myalgias. positive for generalized muscle weakness, no gait dysfunction, no frequent falls. Reports back pain. No neck pain. Integumentary: No wounds, no lesions. No rash or pruritus. No unusual bruising. Neurologic: No aphasia. No facial droop. No change in mentation. No head injury. No headache. No paralysis. No paresthesia. Psychiatric: No depression. No anxiety. Endocrine: Mildly abnormal blood sugars. PHYSICAL EXAMINATION: General: 56-year-old male sitting in recliner no acute respiratory distress at rest. Patient appears to be more comfortable. HEENT: Head is atraumatic, normocephalic, pupils were equal round, sclera nonicteric, conjunctivae were pale. Neck: Supple, no JVP, normal carotid upstroke bilaterally, no lymphadenopathy. Chest: Decreased breath sounds at the bases, few rhonchi, no chest wall tenderness, no intercostal retractions at rest. Heart: First heart sound is normal, second heart sounds normal, there is no gallop or murmur. Abdomen: Soft, nontender, nondistended, positive bowel sounds, no hepatosplenomegaly. Cheek catheter draining clear helga urine. Extremities: There is 1+ edema no calf tenderness DP +2 bilaterally. Neurologic examination: Patient is awake alert and oriented X 3, cranial nerves II-12 appear grossly intact. ASSESSMENT AND PLAN: 1. Acute hypoxemic respiratory failure due to bilateral patchy interstitial pneumonia due to COVID-19 pneumonia and sepsis (POA). Continue patient on Lovenox 40 mg subcu daily, Decadron 6 mg orally every day, Vitamin C 1000 mg orally once every day, zinc 220 mg once every day, vitamin D 1000 units once every day, completed course of Baricitinib, continue oxygen therapy on nonrebreather. Continue Lasix 40 mg orally once every day. 2. Bilateral Covid pneumonia with ARDS. Continue with failure oxygen plus nonrebreather, continue dexamethasone 6 mg orally every day, continue with supportive care. 3. Mild non-anion gap metabolic acidosis. Resolved. 4. Moderate protein calorie malnutrition secondary to decreased appetite and difficulty eating with oxygen mask. Continue Ensure 3 times daily. 5. Acute drug-induced hepatitis. Monitor the patient CMP. 6. DVT prophylaxis. Continue Lovenox 40 mg subcutaneously every 24 hours 7. GERD and GI prophylaxis. Continue patient on Protonix 40 mg oral twice daily. 8. Constipation. 10 units Senokot 2 tablet at bedtime along with MiraLAX 17 g in 8 ounces water once every day. 9. Patient is full code. 10. Guarded prognosis. Objective - Vital Signs Vital signs: Vital Signs Temp 97.6 F 03/05/21 08:00 Pulse 114 H 03/05/21 08:00 Resp 24 03/05/21 08:00 BP 122/66 03/05/21 08:00 Pulse Ox 90 L 03/05/21 08:00 Intake & Output 03/04/21 03/05/21 03/05/21 18:59 06:59 18:59 Intake Total 720 180 Output Total 1300 350 Balance -580 -350 180 Weight 78.4 kg Intake: IV 20 Invasive Line 5 10 Invasive Line 6 10 Oral 700 180 Output: Urine 1300 350 Other: Voiding Method Urinal Urinal Urinal # Voids 1 # Bowel Movements 1 - Labs CBC & Chem 7: 03/04/21 07:33 03/04/21 08:02 Labs: Abnormal Lab Results - Last 24 Hours (Table) 03/04/21 03/04/21 Range/Units 10:55 10:55 D-Dimer 1.02 H (<0.60) mg/L FEU Procalcitonin 0.11 H (0.02-0.09) ng/mL
[2021-03-05] MEDS: SODIUM CHLORIDE 0.65% NASAL SPRAY 44 ML BTL NASAL PRN (20:07)
[2021-03-05] MEDS: ZOLPIDEM 5 MG TAB PO PRN (20:07)
[2021-03-06] MEDS: PANTOPRAZOLE 40 MG TABLET PO SCH ×2 (06:09→17:11)
[2021-03-06 07:49] LABS: Basophils % (A) 0 %; Eosinophils # (A) 0.1 k/uL (0-0.7); Eosinophils % (A) 1 %; HCT 40.4 % (39.0-53.0); HGB 13.3 gm/dL (13.0-17.5); Lymphocytes # (A) 1.1 k/uL (1.0-4.8); Lymphocytes % (A) 10 %; MCH 32.3 pg (25.0-35.0); MCHC 32.8 g/dL (31.0-37.0); MCV 98.4 fL (80.0-100.0); Mean Platelet Volume 7.8; Monocytes # (A) 0.7 k/uL (0-1.0); Monocytes % (A) 6 %; Neutrophils % (A) 81 %; Platelet Count 251 k/uL (150-450); RBC 4.11 m/uL (4.30-5.90); RDW 14.7 % (11.5-15.5)
[2021-03-06 08:06] LABS: ALT 77 U/L (4-49); AST 31 U/L (17-59); African American GFR (CKD) >90 (>60 ml/min/1.73 sqM); Albumin 3.5 g/dL (3.5-5.0); Alkaline Phosphatase 91 U/L (38-126); Anion Gap 7 mmol/L; Blood Urea Nitrogen 32 mg/dL (9-20); Calcium 9.2 mg/dL (8.4-10.2); Carbon Dioxide 31 mmol/L (22-30); Chloride 101 mmol/L (98-107); Glucose 109 mg/dL (74-99); Non-African American GFR(CKD) >90 (>60 ml/min/1.73 sqM); Potassium 4.2 mmol/L (3.5-5.1); Sodium 139 mmol/L (137-145); Total Bilirubin 0.7 mg/dL (0.2-1.3); Total Protein 6.3 g/dL (6.3-8.2)
[2021-03-06] MEDS: polyethylene glycoL 3350 17 GM POWD.PACK PO SCH (09:21)
[2021-03-06] MEDS: POTASSIUM CHLORIDE ER 20 MEQ TAB.ER PO SCH (09:21)
[2021-03-06] MEDS: MULTIVITAMINS, THERA 1 EACH TAB PO SCH (09:22)
[2021-03-06] MEDS: FUROSEMIDE 40 MG TAB PO SCH (09:22)
[2021-03-06] MEDS: ASCORBIC ACID 500 MG TAB PO SCH (09:22)
[2021-03-06] MEDS: SENNOSIDES-DOCUSATE SODIUM 1 EACH TAB PO SCH ×2 (09:22→20:02)
[2021-03-06] MEDS: guaiFENesin 600 MG TABLET.ER PO SCH ×2 (09:22→20:02)
[2021-03-06] MEDS: CHOLECALCIFEROL 25 MCG (1000 IU) TABLET PO SCH (09:22)
[2021-03-06] MEDS: ENOXAPARIN 40 MG/0.4 ML SYRINGE SQ SCH (09:22)
[2021-03-06] MEDS: ZINC SULFATE 220 MG CAP PO SCH (09:22)
[2021-03-06] MEDS: dexAMETHasone 2 MG TAB PO SCH (09:22)
--- NOTE | 2021-03-06 15:23 | P.PN ---
Subjective Progress Note Date: 03/06/21 HISTORY OF PRESENT ILLNESS: This is a 56-year-old male with a past medical history significant for hypertension and hypertensive cardiovascular disease, hyperlipidemia, history of tobacco use and dependence, presented to the emergency department at [facility] with increased coughing and increased shortness breath that started last and has been getting worse over the last few days, yesterday he was extremely short of breath and his oxygen saturation was in the low 70s, his tried to get him to the ER but eventually called 911 and the patient was brought into the ER at [facility] where he had a chest x-ray that did show evidence of bilateral patchy infiltrate suggestive of Covid pneumonia, his COVID-19 PCR was positive, patient was started on nonrebreather, and later on was seen in consultation by pulmonary medicine and he was placed on Airvo and was started on Bacitinib 4 mg po daily and the patient was admitted to the hospital for further evaluation and treatment. 02/05: A shunt is currently on AirVol. He has complained of feeling tired and complaining of gastric reflux. Protonix will be increased to 40 mg IV push twice daily. Patient is been seen by pulmonary medicine and started on Baricitinib, continued on dexamethasone 6 mg twice daily, Lovenox 40 mg daily. He has been afebrile, heart rate 92, blood pressure 137/86, pulse ox 97%. Repeat blood work reveals WBC 2.2, d-dimer 3.33, blood sugar 143. LDH 735, C-r eactive protein 15.5. Chest x-ray reveals chronic emphysematous and pulmonary fibrotic changes with bilateral multifocal reticular nodular opacities consistent with COVID-19. Perhaps slight improvement in the right lung base. Ultrasound of bilateral lower extremities negative for DVT. 02/06: Last evening, patient was transferred into the intensive care unit as he was on 15 L nonrebreather was transitioned over to AirVo 60 L 90% with nonrebreather on top. Pulse ox is currently running 84-87%. He has been afebrile, heart rate in the 80s and 90s, respiratory rate 29, blood pressure 131/82. Patient is requesting Cepacol lozenges and nasal spray added. Ensure 3 times daily also added, patient has decreased appetite and limited oral intake. Repeat blood work reveals WBC 4.9, hemoglobin 13.6. Platelet count 381. D- dimer 2.15. LDH 1685. C-reactive protein 5.6. Repeat chest x-ray revealed continue his Covid infiltrate superimposed on bollous emphysema. Slight improvement in aeration in the right upper lobe. Patient is continued on dexamethasone, Lovenox, vitamin supplements and Baricitinib. 02/07:patient remains in the intensive care unit. He is on nonrebreather mask as well as high flow AirVo with O2 at 60 L, FiO2 90%. patient remains afebrile, heart rate in the 70s, respiratory rate 26, blood pressure 127/79, pulse ox 86- 88%, pulse ox drops in the low 80s when patient ate's. He is on ensure 3 times daily. Patient is complaining of some cough and back pain when he coughs. He is less fatigued today. 02/08: Patient remains in intensive care unit currently on nonrebreather, as well as a high flow airflow oxygen still borderline at 89%, patient is eating his protein, hysterectomy 8 his breakfast, he has no chest pain at this time he continues to be extreme short of breath, he has no abdominal pain, he had lost some of the states, he has no headache, he has no hemoptysis, he has no pleurisy, he has no edema. 02/09: Patient sitting up in a chair his feeling a bit better. He continues to be on nonrebreather along with airflow 60 L, he denies any chest pain, his continues to be somewhat short of breath, he continues to struggle with breathing, has no abdominal pain, he had a good bowel movement yesterday, he is tolerating his food, patient is stable at this point in time, he will stay in the intensive care unit due to his oxygen requirement, chest x-ray showed bilateral diffuse infiltrate suggestive of Covid pneumonia, he continues to be on Decadron 6 mg orally twice every day, we'll continue conservative management continue supportive care continue Baricitinib daily for a total of 14 doses today is 08/10 02/10: Patient is feeling better today he continues to be on airVO and NRB, continues to require a lot of oxygen, sitting up and eating his breakfast, he has no chest pain, no pleurisy, he does competitive achiness in the back of his legs, he is current;y on Baricitinib Day #6 out of 14. 02/11: Patient is seen today in the ICU. He is on AirVo had 90% 60 L and nonrebreather is used as needed. Patient is more mobile in his room. He has been afebrile, heart rate 81 and 96, blood pressure 127/72 area pulse ox 87-95%. Repeat blood work reveals WBC 15.5. Electrolytes normal. BUN 27 creatinine 0.84. Blood sugar 145. Liver function tests were normal. Patient is on regular diet and protein supplements. He is continued on Baricitinib, oral dexamethasone, Lovenox and supplements. 02/12: Patient remains in intensive care unit. He is on AirVo plus nonrebreather but he is keeping NRB in place except for oral intake. He has b een afebrile, heart rate 89, respiratory rate 23-30, blood pressure 132/75, pulse ox 90%. CTA of the chest showed no pulmonary embolism. Small pericardial effusion. Extensive emphysematous changes and/or pulmonary fibrosis. Patient is on regular diet and protein supplements. No vomiting or diarrhea. WBC 14.2. Creatinine 0.76. Blood sugar 142. ALT 71. 02/13: Patient is currently on AirVo and nonrebreather with pulse ox 82-96%. He has been afebrile, heart rate in the 90s, respiratory rate 19-36. Blood pressure 132/84. WBC 17.9. Sodium 134. Blood sugar 125. Patient is continued on supplements, Baricitinib, dexamethasone and Lovenox. 02/14: Patient remains in the intensive care unit on airvo and nonrebreather. He states he was up in a chair for a little while yesterday. He still has coughing, no fever or chills. He is taking protein supplement. Patient has been afebrile, heart rate 97, blood pressure 139/88, respiratory rate 24, pulse ox 92%. WBC 17.6. Sodium 131. Patient is continued on supplements, Baricitinib, dexamethasone and Lovenox. 02/15: Patient remains in the intensive care unit on AirVo and nonrebreather with pulse ox of 94%. Patient's been afebrile, heart rate 86, respiratory rate 22, blood pressure 120/75. Review blood work reveals WBC 21. AST 82, ALT 229. Sodium 131, potassium 4.8, creatinine 0.88. Patient is complaining of oral pain, grinding his teeth. Patient is continued on supplements, Baricitinib, dexamethasone and Lovenox. 02/16: Patient moved out of the ICU, his currently in the telemetry unit, his monitor showing sinus tachycardia with PACs, he continues to be on airVo and nonrebreather his oxygen is about 93%, it does drop to 88-89% with activity and exertion, he continues to be generally weak, he has no chest pain at this time, he has no pleurisy, there is no hemoptysis, he has no abdominal pain, nausea or vomiting, he seems to be tolerating her treatment very well. 02/17: Patient is about the same he continues to be in a telemetry unit, he continues to have sinus tachycardia, he continues to be on same oxygen he continues to be about the same, he is currently maintained on Decadron as well as Baricitinib for a total of 14 doses, we will continue to monitor his liver function tests, and as he continues to have transaminitis., Patient denies any chest pain at this time he has no abdominal pain, nausea vomiting or diarrhea. 02/18: Patient is seen sitting up in a chair today. He is on AirVO nonrebreather with pulse ox 92%. His been afebrile, heart rate 112, blood pressure 128/73. Patient is currently on dexamethasone, Lovenox and vitamin supplements. He has completed his course of Baricitinib. Repeat blood work reveals WBC 31.2, hemoglobin 15, platelet count 601. Sodium 131, potassium 4.7, chloride 97, CO2 25, BUN 32 creatinine 0.8. Blood sugars are running between 117 and 130s. AST is 198, ALT 875. Alkaline phosphatase 82. 02/19: Patient is currently on AirVo only with pulse ox of 8792%. He has been afebrile, heart rate 107, blood pressure 114/77. Have any nausea vomiting, no diarrhea. He states he is feeling better from yesterday. No repeat chest x-ray is scheduled for today. Repeat blood work will be ordered for tomorrow. Patient is been monitored closely and followed by the pulmonary service since admission. Currently he is on 60 L oxygen via high flow nasal cannula with FiO2 of 68%. Slightly tachypneic and got short of breath when he talks. Labs reviewed WBC 23k, d-dimer 0.75, sodium slightly low 129, potassium slightly high at 5.3, liver enzymes slightly elevated, lactate dehydrogenase is elevated 1114. Poorcalcitonin is 0.19, was 0.08. Chest x-ray showing COPD with patchy bilateral Covid pneumonia. Patient currently kept on dexamethasone 6 mg daily, vitamin C, vitamin D and zinc. Also he is on Pepcid and Lovenox. 02/22/2021 Patient reports some improvement in his shortness of breath. Today following a T-max trying to wean him down with lowering oxygen requirement 60 down to 40 L per minute with FiO2 68 down to 50% this morning. Patient is to cardiac and more tachypneic during these attempts for now, we will keep monitoring. However he does not report any worsening dyspnea. Sodium improved to 134, potassium down to 5.0. He remains on dexamethasone and multiple vitamins. Also he is on Lovenox and Pepcid We will keep monitoring 02/23/2021 Patient today show significant improvement with drop of oxygen requirement down to 15 L/m, patient reports more easier breathing. No much coughing. WBC 20 2K, d-dimer is stable at 0.7. Potassium normal at 4.3. Lactate dehydrogenase still elevated but stable at 1023. Patient remains on the same treatment of dexamethasone, multiple vitamins, Lovenox and Pepcid 02/24/2021 Patient awake and alert, he feels generally weak, significantly dyspneic while talking. Looks more tired and lethargic. Patient is hypoxic requiring 15 L/m nonrebreather and interval of 40 L at 50%, he is tachypneic and tachycardic. Heart rate around 119. Chest x-ray: Chronic parenchymal changes with left mid lung and bibasilar opacities consistent with known covid 19 infection. No significant change. Patient remains on vitamin C, D and zinc, dexamethasone, Lovenox and Pepcid 02/25: Patient is on nonrebreather and AirVo pulse ox of 91%. He's been afebrile, heart rate 118, blood pressure 1 3472. Patient complains of feeling tired. Repeat chest x-ray ordered, Lasix at 40 mg IV every 12 hours, Mucinex ordered. WBC 20.1. Magnesium 2.5. LDH 1039, C-reactive protein 4.3, pro-calcitonin 0.16. Patient is continued on dexamethasone, Lovenox and vitamin supplements. 02/26: Pulse ox is running 89 and 99% with nonrebreather at 15 L and high flow nasal cannula at 15 L. He remains afebrile, heart rate 113, respiratory rate 24, blood pressure 117/72. No repeat blood work today. Patient states he slept well last night but he was having cramps yesterday most likely from diuresing. He did have 3000 ml urine out and Lasix decreased to once daily. Patient has less lower extremity edema and lower extremity ultrasound bilaterally ordered. Patient was complaining of back discomfort for which baclofen will be ordered. Repeat blood work and chest x-ray for tomorrow. Chest x-ray from yesterday reveals coarse basilar infiltrates unchanged from prior study. 02/27: Patient is now on 15 L nonrebreather, off AirVo.. His pulse ox is 95%. He's been afebrile, heart rate 114, respiratory rate 25, blood pressure 130/84. Patient has decreased lower extremity edema will be continued on Lasix 40 mg IV daily. He had a repeat Covid test done yesterday which was positive. Repeat chest x-ray reveals diffuse bilateral lung infiltrates stable. Venous Doppler bilateral lower extremity negative for DVT. 02/28: Patient is seen in follow-up today. He is resting and recliner. He has been afebrile, heart rate 110, blood pressure 122/72, respiratory rate 18-24, pulse ox 97% on high flow nasal cannula and AirVo. Repeat blood work reveals sodium 134, potassium 5.0, chloride 98, CO2 29, BUN 37 creatinine 0.86. Blood sugar 131. Patient is continued on vitamin supplements, dexamethasone, Lovenox. 03/01: The patient is now on nonrebreather only at 15 L with pulse ox of 95%. His been afebrile, heart rate 113, blood pressure 147/75. property assessment monitor is a sinus rhythm. Patient's breathing status overall is improving but he still has significant shortness of breath with minimal activity. Patient continues to have cough with mild sputum production. We'll plan to remove Cheek catheter tomorrow morning. Cheek catheter was placed as patient was de-satting when he tried to stand to urinate. Urinalysis was also be obtained at that time. 03/02: Patient continues to feel a bit better, he is currently on 15 L along with an nonrebreather, he denies any chest pain his less short of breath, he continues to emboly very carefully, his appetite is okay, he has no diarrhea, he has no pleurisy, he has no hemoptysis, the swelling in both lower extremities are better, we'll continue with supportive care, patient is complaining of increased constipation stool softener along with MiraLAX will be added. 03/03: Patient sitting up in bed is feeling better today, he still didn't have a bowel movement, MiraLAX will be admitted, along with the Senokot 2 tablet a day, continue activity, continue Decadron 6 mg orally once every day, continue to monitor the patient very closely, continue oxygen support with 15 L an nonrebreather as needed, patient appears to be a lot better today than he was yesterday we'll continue to monitor very closely. 03/04: Patient had a bowel movement yesterday after medications. He states his breathing is little bit better today. He's been on high flow nasal cannula 15 L an nonrebreather with pulse ox running between 91 and 95%. He has been afebrile, heart rate 109, blood pressure 124/76. Blood work this morning is pending at the time of this dictation. Patient is continued on Lovenox, dexamethasone oral and vitamin supplements. Patient is followed closely by pulmonary medicine. 03/05: Patient sitting up in the chair continued to be on nonrebreather along with 8 L, he continues to be somewhat short of breath with minimum exertion, his computed tomography scan of the chest showed evidence of pulmonary fibrosis with severe emphysema without evidence of pulmonary embolism, he continues to be on Decadron, we'll continue to follow the patient very closely. 03/06: Patient is continued on nonrebreather and 10 L high flow nasal cannula. He has been afebrile, heart rate in the low 100s, blood pressure 116/70. WBC 11 BUN 32 creatinine 0.87. Blood sugar 109. A LT 77. Patient has been stable with minimal improvement of his oxygenation and unable to wean down on oxygen therapy in order to go home. Discussed with the patient about long-term care facility and he is agreeable, we will plan for or Thursday of this week, social work is following. Is followed by pulmonary medicine. REVIEW OF SYSTEMS: Constitutional: Denies fever, chills, night sweats. No weight change. positive for weakness, reports fatigue no lethargy. Denies daytime sleepiness. HEENT: No headache. No nasal drainage or congestion. No epistaxis. Reports sore throat. Lungs: Continued shortness of breath with oxygen therapy slowly improving, positive for cough, positive for white sputum production. No wheezing. Reports dyspnea with minimal activity. Cardiovascular: No chest pain, no lower extremity edema. No palpitations. No paroxysmal nocturnal dyspnea. No orthopnea. No lightheadedness or dizziness. No syncopal episodes. Abdominal: denies abdominal pain. No nausea, vomiting. Denies diarrhea. No constipation. No bloody or tarry stools. Reports loss of appetite. Genitourinary: No dysuria, increased frequency, urgency. No urinary retention. Musculoskeletal: positive for myalgias. positive for generalized muscle weakness, no gait dysfunction, no frequent falls. Reports back pain. No neck pain. Integumentary: No wounds, no lesions. No rash. No unusual bruising. Neurologic: No aphasia. No facial droop. No change in mentation. No head injury. No headache. No paralysis. No paresthesia. Psychiatric: No depression. No anxiety. Endocrine: Mildly abnormal blood sugars. PHYSICAL EXAMINATION: General: 56-year-old male sitting in recliner no acute respiratory distress at rest. Patient appears to be more comfortable. HEENT: Head is atraumatic, normocephalic, pupils were equal round, sclera nonicteric, conjunctivae were pale. Neck: Supple, no JVP, normal carotid upstroke bilaterally, no lymphadenopathy. Chest: Decreased breath sounds at the bases, few rhonchi, no chest wall tenderness, no intercostal retractions at rest. Heart: First heart sound is normal, second heart sounds normal, there is no gallop or murmur. Abdomen: Soft, nontender, nondistended, positive bowel sounds, no hepatosplenomegaly. Cheke catheter draining clear helga urine. Extremities: There is 1+ edema no calf tenderness DP +2 bilaterally. Neurologic examination: Patient is awake alert and oriented X 3, cranial nerves II-12 appear grossly intact. ASSESSMENT AND PLAN: 1. Acute hypoxemic respiratory failure due to bilateral patchy interstitial pneumonia due to COVID-19 pneumonia and sepsis (POA). Continue patient on Lovenox 40 mg subcu daily, Decadron 6 mg orally every day, Vitamin C 1000 mg orally once every day, zinc 220 mg once every day, vitamin D 1000 units once every day, completed course of Baricitinib, continue oxygen therapy on nonrebreather and nasal cannula. Continue Lasix 40 mg orally once every day. 2. Bilateral Covid pneumonia with ARDS. Continue with failure oxygen plus nonrebreather, continue dexamethasone 6 mg orally every day, continue with supportive care. 3. Mild non-anion gap metabolic acidosis. Resolved. 4. Moderate protein calorie malnutrition secondary to decreased appetite and difficulty eating with oxygen mask. Continue Ensure 3 times daily. 5. Acute drug-induced hepatitis. Monitor the patient CMP. 6. DVT prophylaxis. Continue Lovenox 40 mg subcutaneously every 24 hours 7. GERD and GI prophylaxis. Continue patient on Protonix 40 mg oral twice daily. 8. Constipation. 10 units Senokot 2 tablet at bedtime along with MiraLAX 17 g in 8 ounces water once every day. 9. Patient is full code. 10. Guarded prognosis. DISCHARGE PLAN LTAC or Thursday Impression and plan of care have been directed as dictated by the signing physician. Viridiana Baker nurse practitioner acting as scribe for signing physician. Objective - Vital Signs Vital signs: Vital Signs Temp 97.5 F L 03/06/21 04:00 Pulse 106 H 03/06/21 12:00 Resp 20 03/06/21 12:00 BP 116/70 03/06/21 08:00 Pulse Ox 95 03/06/21 12:00 Intake & Output 03/05/21 03/06/21 03/06/21 18:59 06:59 18:59 Intake Total 180 125 Output Total 785 270 3915 Balance -520 -557 -287 Weight 77.5 kg Intake: Oral 180 125 Output: Urine 691 266 0109 Other: Voiding Method Urinal Urinal Urinal # Voids 2 # Bowel Movements 1 - Labs CBC & Chem 7: 03/06/21 07:20 03/06/21 07:20 Labs: Abnormal Lab Results - Last 24 Hours (Table) 03/06/21 03/06/21 Range/Units 07:20 07:20 WBC 11.0 H (3.8-10.6) k/uL RBC 4.11 L (4.30-5.90) m/uL Neutrophils # 9.0 H (1.3-7.7) k/uL Carbon Dioxide 31 H (22-30) mmol/L BUN 32 H (9-20) mg/dL Glucose 109 H (74-99) mg/dL ALT 77 H (4-49) U/L
--- NOTE | 2021-03-06 15:55 | P.PN ---
Subjective Progress Note Date: 03/06/21 Principal diagnosis: Dyspnea On 02/28/2021 patient seen in follow-up on selective care unit, is currently on Airvo at 40 L and FiO2 of 50% in addition to nonrebreather mask, he is maintaining O2 saturations between 90-94%, she is currently sitting up in the chair, does not appear to be in acute distress, although has exertional dyspnea and conversational dyspnea. Denies any fever or chills, his last chest x-ray was yesterday showed diffuse bilateral lung infiltrates stable in appearance. patient continues on Decadron 6 blood gram daily, Lovenox 40 mg daily, he continues on daily dose of Lasix 40 mg daily, no new labs today. Yesterday's labs have been reviewed, his inflammatory markers overall have been improving through the course of his hospitalization. Last d-dimer was 1.15. His pro calcitonin level has been negative 2. His electrolytes were unremarkable on y esterday's labs, BUN was 37 and creatinine was 0.86. On 03/05/2021 patient seen in follow-up on selective care unit. He is currently on 8 L per high flow nasal cannula, and nonrebreather mask, and his pulse ox is 90-92%, he has been tolerating elevation to the bathroom, does have exertional dyspnea, but overall his FiO2 requirements have decreased when patient was previously on Airvo in addition to the nonrebreather mask. He is awake and alert, no altered mentation, he is oriented 3. No worsening dyspnea, occasional cough, no phlegm production. CT angiogram of the chest shows no evidence of pulmonary embolism, and previous pulmonary emphysema and pulmonary fibrosis. Small pericardial effusion slightly improved compared his old exam. Patient is currently on Decadron 6 mg daily, he is on COVID-19 vitamins, and prophylactic Lovenox 40 mg daily. On 03/06/2021 patient is seen in follow-up on selective care unit, patient's clinical condition has essentially remained stable for several days, he is on 10 L per high flow nasal cannula and nonrebreather mask, his pulse ox is 94-95%, he is awake and alert, he still has exertional dyspnea, he desaturates with ambulation, it takes him a while to recover this morning he ambulated to the bathroom, became very tachypneic, desatted to 80%, and was placed on BiPAP support briefly, he has since recovered, he is back on high flow nasal cannula and nonrebreather mask, breathing fairly comfortable, no other acute events overnight,. No complaints of chest discomfort, nonproductive cough, occasional, he continues on Decadron 6 blood gram daily, he is on prophylactic dose Lovenox, he is on oral Lasix, cough medications, he is on COVID-19 vitamins. He is on when necessary Xanax for anxiety and breathlessness. His CT angiogram showed no evidence of pulmonary embolism and previously noted pulmonary emphysema and pulmonary fibrosis. He is tolerating oral intake, no nausea vomiting diarrhea, no abdominal pain. Today's labs have been reviewed his white blood cell count is 11, hemoglobin is 13.3, his electrolytes and renal profile are unremarkable. D-dimer is 1.02, pro calcitonin level is negative at 0.11. Objective - Vital Signs Vital signs: Vital Signs Temp 97.5 F L 03/06/21 04:00 Pulse 106 H 03/06/21 12:00 Resp 20 03/06/21 12:00 BP 116/70 03/06/21 08:00 Pulse Ox 95 03/06/21 12:00 Intake & Output 03/05/21 03/06/21 03/06/21 18:59 06:59 18:59 Intake Total 180 125 Output Total 093 198 0274 Balance -520 -600 -875 Weight 77.5 kg Intake: Oral 180 125 Output: Urine 762 166 2450 Other: Voiding Method Urinal Urinal Urinal # Voids 2 # Bowel Movements 1 - Exam GENERAL EXAM: Alert, 56-year-old white male, 10 L per high flow nasal cannula in addition to nonrebreather mask with a pulse ox of 90-92% HEAD: Normocephalic/atraumatic. EYES: Normal reaction of pupils, equal size. Conjunctiva pink, sclera white. NOSE: Clear with pink turbinates. THROAT: No erythema or exudates. NECK: No masses, no JVD, no thyroid enlargement, no adenopathy. CHEST: No chest wall deformity. Symmetrical expansion. LUNGS: Equal air entry with diffuse crackles CVS: Regular rate and rhythm, normal S1 and S2, no gallops, no murmurs, no rubs ABDOMEN: Soft, nontender. No hepatosplenomegaly, normal bowel sounds, no guarding or rigidity. EXTREMITIES: No clubbing, no edema, no cyanosis, 2+ pulses and upper and lower extremities. MUSCULOSKELETAL: Muscle strength and tone normal. SPINE: No scoliosis or deformity SKIN: No rashes CENTRAL NERVOUS SYSTEM: Alert and oriented -3. No focal deficits, tone is normal in all 4 extremities. PSYCHIATRIC: Alert and oriented -3. Appropriate affect. Intact judgment and insight. - Labs CBC & Chem 7: 03/06/21 07:20 03/06/21 07:20 Labs: Abnormal Lab Results - Last 24 Hours (Table) 03/06/21 03/06/21 Range/Units 07:20 07:20 WBC 11.0 H (3.8-10.6) k/uL RBC 4.11 L (4.30-5.90) m/uL Neutrophils # 9.0 H (1.3-7.7) k/uL Carbon Dioxide 31 H (22-30) mmol/L BUN 32 H (9-20) mg/dL Glucose 109 H (74-99) mg/dL ALT 77 H (4-49) U/L Assessment and Plan Plan: Assessment: #1. Acute COVID 19 related pneumonia with secondary respiratory failure. Currently on airvo 40 liters and 50% Fio2. Chest x-ray showing diffuse bilateral pulmonary infiltrates consistent with COVID 19 related pneumonia. No interval worsening in his chest x-ray findings. The inflammatory markers including the LDH and CRP are being monitored. D-dimer is also lower. The patient is still on Decadron 6 mg and the patient has completed Baricitinib. The patient remains on Lovenox for DVT prophylaxis. Chest x-ray findings are stable. Since yesterday, the patient had some worsening shortness of breath and some setback as the patient got himself off the high flow oxygen. Currently is back on 40 L with an FiO2 of 50% along with that he is using 100% nonrebreather facemask and the patient is also demonstrating a stable chest x-ray. He is on anticoagulation. He is on Decadron. Repeat COVID 19 testing was again positive. #2. Acute on chronic shortness of breath secondary to above #3. Advanced pulmonary emphysema and pulmonary fibrosis as seen on the CT angiogram of the chest #4. Former smoker #5. Hypertension and hypertensive cardiovascular disease #6. Hyperlipidemia Plan: Patient's clinical condition has essentially remained stable with periods of desaturation with exertion, and patient is still requiring high flow oxygen at 10 L and nonrebreather mask Vital signs have been stable No fever or chills No chest discomfort Remains on Decadron, prophylactic Lovenox CTA chest showed no evidence of pulmonary embolism Tolerating oral intake Vital signs have been stable Pro-calcitonin is negative He is tolerating ambulation He could be considered for LTAC placement today or tomorrow once the arrangements are complete I performed a history & physical examination of the patient and discussed their management with my nurse practitioner, Shelby Eaton. I reviewed the nurse practitioner's note and agree with the documented findings and plan of care. Lung sounds are positive for dim with basilar crackles throughout the lung [place]. The findings and the impression was discussed with the patient. I attest to the documentation by the nurse practitioner. Time with Patient: Less than 30
[2021-03-06] MEDS: BACLOFEN 10 MG TAB PO PRN (20:02)
[2021-03-06] MEDS: ZOLPIDEM 5 MG TAB PO PRN (20:02)
[2021-03-07] MEDS: BENZOCAINE/MENTHOL LOZENG 1 EACH LOZENGE MUCOUS MEM PRN (01:18)
[2021-03-07] MEDS: PANTOPRAZOLE 40 MG TABLET PO SCH ×2 (06:24→17:17)
--- NOTE | 2021-03-07 09:07 | P.PN ---
Subjective Progress Note Date: 03/07/21 HISTORY OF PRESENT ILLNESS: This is a 56-year-old male with a past medical history significant for hypertension and hypertensive cardiovascular disease, hyperlipidemia, history of tobacco use and dependence, presented to the emergency department at [facility] with increased coughing and increased shortness breath that started last and has been getting worse over the last few days, yesterday he was extremely short of breath and his oxygen saturation was in the low 70s, his tried to get him to the ER but eventually called 911 and the patient was brought into the ER at [facility] where he had a chest x-ray that did show evidence of bilateral patchy infiltrate suggestive of Covid pneumonia, his COVID-19 PCR was positive, patient was started on nonrebreather, and later on was seen in consultation by pulmonary medicine and he was placed on Airvo and was started on Bacitinib 4 mg po daily and the patient was admitted to the hospital for further evaluation and treatment. 02/05: A shunt is currently on AirVol. He has complained of feeling tired and complaining of gastric reflux. Protonix will be increased to 40 mg IV push twice daily. Patient is been seen by pulmonary medicine and started on Baricitinib, continued on dexamethasone 6 mg twice daily, Lovenox 40 mg daily. He has been afebrile, heart rate 92, blood pressure 137/86, pulse ox 97%. Repeat blood work reveals WBC 2.2, d-dimer 3.33, blood sugar 143. LDH 735, C-r eactive protein 15.5. Chest x-ray reveals chronic emphysematous and pulmonary fibrotic changes with bilateral multifocal reticular nodular opacities consistent with COVID-19. Perhaps slight improvement in the right lung base. Ultrasound of bilateral lower extremities negative for DVT. 02/06: Last evening, patient was transferred into the intensive care unit as he was on 15 L nonrebreather was transitioned over to AirVo 60 L 90% with nonrebreather on top. Pulse ox is currently running 84-87%. He has been afebrile, heart rate in the 80s and 90s, respiratory rate 29, blood pressure 131/82. Patient is requesting Cepacol lozenges and nasal spray added. Ensure 3 times daily also added, patient has decreased appetite and limited oral intake. Repeat blood work reveals WBC 4.9, hemoglobin 13.6. Platelet count 381. D- dimer 2.15. LDH 1685. C-reactive protein 5.6. Repeat chest x-ray revealed continue his Covid infiltrate superimposed on bollous emphysema. Slight improvement in aeration in the right upper lobe. Patient is continued on dexamethasone, Lovenox, vitamin supplements and Baricitinib. 02/07:patient remains in the intensive care unit. He is on nonrebreather mask as well as high flow AirVo with O2 at 60 L, FiO2 90%. patient remains afebrile, heart rate in the 70s, respiratory rate 26, blood pressure 127/79, pulse ox 86- 88%, pulse ox drops in the low 80s when patient ate's. He is on ensure 3 times daily. Patient is complaining of some cough and back pain when he coughs. He is less fatigued today. 02/08: Patient remains in intensive care unit currently on nonrebreather, as well as a high flow airflow oxygen still borderline at 89%, patient is eating his protein, hysterectomy 8 his breakfast, he has no chest pain at this time he continues to be extreme short of breath, he has no abdominal pain, he had lost some of the states, he has no headache, he has no hemoptysis, he has no pleurisy, he has no edema. 02/09: Patient sitting up in a chair his feeling a bit better. He continues to be on nonrebreather along with airflow 60 L, he denies any chest pain, his continues to be somewhat short of breath, he continues to struggle with breathing, has no abdominal pain, he had a good bowel movement yesterday, he is tolerating his food, patient is stable at this point in time, he will stay in the intensive care unit due to his oxygen requirement, chest x-ray showed bilateral diffuse infiltrate suggestive of Covid pneumonia, he continues to be on Decadron 6 mg orally twice every day, we'll continue conservative management continue supportive care continue Baricitinib daily for a total of 14 doses today is 08/10 02/10: Patient is feeling better today he continues to be on airVO and NRB, continues to require a lot of oxygen, sitting up and eating his breakfast, he has no chest pain, no pleurisy, he does competitive achiness in the back of his legs, he is current;y on Baricitinib Day #6 out of 14. 02/11: Patient is seen today in the ICU. He is on AirVo had 90% 60 L and nonrebreather is used as needed. Patient is more mobile in his room. He has been afebrile, heart rate 81 and 96, blood pressure 127/72 area pulse ox 87-95%. Repeat blood work reveals WBC 15.5. Electrolytes normal. BUN 27 creatinine 0.84. Blood sugar 145. Liver function tests were normal. Patient is on regular diet and protein supplements. He is continued on Baricitinib, oral dexamethasone, Lovenox and supplements. 02/12: Patient remains in intensive care unit. He is on AirVo plus nonrebreather but he is keeping NRB in place except for oral intake. He has b een afebrile, heart rate 89, respiratory rate 23-30, blood pressure 132/75, pulse ox 90%. CTA of the chest showed no pulmonary embolism. Small pericardial effusion. Extensive emphysematous changes and/or pulmonary fibrosis. Patient is on regular diet and protein supplements. No vomiting or diarrhea. WBC 14.2. Creatinine 0.76. Blood sugar 142. ALT 71. 02/13: Patient is currently on AirVo and nonrebreather with pulse ox 82-96%. He has been afebrile, heart rate in the 90s, respiratory rate 19-36. Blood pressure 132/84. WBC 17.9. Sodium 134. Blood sugar 125. Patient is continued on supplements, Baricitinib, dexamethasone and Lovenox. 02/14: Patient remains in the intensive care unit on airvo and nonrebreather. He states he was up in a chair for a little while yesterday. He still has coughing, no fever or chills. He is taking protein supplement. Patient has been afebrile, heart rate 97, blood pressure 139/88, respiratory rate 24, pulse ox 92%. WBC 17.6. Sodium 131. Patient is continued on supplements, Baricitinib, dexamethasone and Lovenox. 02/15: Patient remains in the intensive care unit on AirVo and nonrebreather with pulse ox of 94%. Patient's been afebrile, heart rate 86, respiratory rate 22, blood pressure 120/75. Review blood work reveals WBC 21. AST 82, ALT 229. Sodium 131, potassium 4.8, creatinine 0.88. Patient is complaining of oral pain, grinding his teeth. Patient is continued on supplements, Baricitinib, dexamethasone and Lovenox. 02/16: Patient moved out of the ICU, his currently in the telemetry unit, his monitor showing sinus tachycardia with PACs, he continues to be on airVo and nonrebreather his oxygen is about 93%, it does drop to 88-89% with activity and exertion, he continues to be generally weak, he has no chest pain at this time, he has no pleurisy, there is no hemoptysis, he has no abdominal pain, nausea or vomiting, he seems to be tolerating her treatment very well. 02/17: Patient is about the same he continues to be in a telemetry unit, he continues to have sinus tachycardia, he continues to be on same oxygen he continues to be about the same, he is currently maintained on Decadron as well as Baricitinib for a total of 14 doses, we will continue to monitor his liver function tests, and as he continues to have transaminitis., Patient denies any chest pain at this time he has no abdominal pain, nausea vomiting or diarrhea. 02/18: Patient is seen sitting up in a chair today. He is on AirVO nonrebreather with pulse ox 92%. His been afebrile, heart rate 112, blood pressure 128/73. Patient is currently on dexamethasone, Lovenox and vitamin supplements. He has completed his course of Baricitinib. Repeat blood work reveals WBC 31.2, hemoglobin 15, platelet count 601. Sodium 131, potassium 4.7, chloride 97, CO2 25, BUN 32 creatinine 0.8. Blood sugars are running between 117 and 130s. AST is 198, ALT 875. Alkaline phosphatase 82. 02/19: Patient is currently on AirVo only with pulse ox of 8792%. He has been afebrile, heart rate 107, blood pressure 114/77. Have any nausea vomiting, no diarrhea. He states he is feeling better from yesterday. No repeat chest x-ray is scheduled for today. Repeat blood work will be ordered for tomorrow. Patient is been monitored closely and followed by the pulmonary service since admission. Currently he is on 60 L oxygen via high flow nasal cannula with FiO2 of 68%. Slightly tachypneic and got short of breath when he talks. Labs reviewed WBC 23k, d-dimer 0.75, sodium slightly low 129, potassium slightly high at 5.3, liver enzymes slightly elevated, lactate dehydrogenase is elevated 1114. Poorcalcitonin is 0.19, was 0.08. Chest x-ray showing COPD with patchy bilateral Covid pneumonia. Patient currently kept on dexamethasone 6 mg daily, vitamin C, vitamin D and zinc. Also he is on Pepcid and Lovenox. 02/22/2021 Patient reports some improvement in his shortness of breath. Today following a T-max trying to wean him down with lowering oxygen requirement 60 down to 40 L per minute with FiO2 68 down to 50% this morning. Patient is to cardiac and more tachypneic during these attempts for now, we will keep monitoring. However he does not report any worsening dyspnea. Sodium improved to 134, potassium down to 5.0. He remains on dexamethasone and multiple vitamins. Also he is on Lovenox and Pepcid We will keep monitoring 02/23/2021 Patient today show significant improvement with drop of oxygen requirement down to 15 L/m, patient reports more easier breathing. No much coughing. WBC 20 2K, d-dimer is stable at 0.7. Potassium normal at 4.3. Lactate dehydrogenase still elevated but stable at 1023. Patient remains on the same treatment of dexamethasone, multiple vitamins, Lovenox and Pepcid 02/24/2021 Patient awake and alert, he feels generally weak, significantly dyspneic while talking. Looks more tired and lethargic. Patient is hypoxic requiring 15 L/m nonrebreather and interval of 40 L at 50%, he is tachypneic and tachycardic. Heart rate around 119. Chest x-ray: Chronic parenchymal changes with left mid lung and bibasilar opacities consistent with known covid 19 infection. No significant change. Patient remains on vitamin C, D and zinc, dexamethasone, Lovenox and Pepcid 02/25: Patient is on nonrebreather and AirVo pulse ox of 91%. He's been afebrile, heart rate 118, blood pressure 1 3472. Patient complains of feeling tired. Repeat chest x-ray ordered, Lasix at 40 mg IV every 12 hours, Mucinex ordered. WBC 20.1. Magnesium 2.5. LDH 1039, C-reactive protein 4.3, pro-calcitonin 0.16. Patient is continued on dexamethasone, Lovenox and vitamin supplements. 02/26: Pulse ox is running 89 and 99% with nonrebreather at 15 L and high flow nasal cannula at 15 L. He remains afebrile, heart rate 113, respiratory rate 24, blood pressure 117/72. No repeat blood work today. Patient states he slept well last night but he was having cramps yesterday most likely from diuresing. He did have 3000 ml urine out and Lasix decreased to once daily. Patient has less lower extremity edema and lower extremity ultrasound bilaterally ordered. Patient was complaining of back discomfort for which baclofen will be ordered. Repeat blood work and chest x-ray for tomorrow. Chest x-ray from yesterday reveals coarse basilar infiltrates unchanged from prior study. 02/27: Patient is now on 15 L nonrebreather, off AirVo.. His pulse ox is 95%. He's been afebrile, heart rate 114, respiratory rate 25, blood pressure 130/84. Patient has decreased lower extremity edema will be continued on Lasix 40 mg IV daily. He had a repeat Covid test done yesterday which was positive. Repeat chest x-ray reveals diffuse bilateral lung infiltrates stable. Venous Doppler bilateral lower extremity negative for DVT. 02/28: Patient is seen in follow-up today. He is resting and recliner. He has been afebrile, heart rate 110, blood pressure 122/72, respiratory rate 18-24, pulse ox 97% on high flow nasal cannula and AirVo. Repeat blood work reveals sodium 134, potassium 5.0, chloride 98, CO2 29, BUN 37 creatinine 0.86. Blood sugar 131. Patient is continued on vitamin supplements, dexamethasone, Lovenox. 03/01: The patient is now on nonrebreather only at 15 L with pulse ox of 95%. His been afebrile, heart rate 113, blood pressure 147/75. monitoring and evaluation advisor is a sinus rhythm. Patient's breathing status overall is improving but he still has significant shortness of breath with minimal activity. Patient continues to have cough with mild sputum production. We'll plan to remove Cheek catheter tomorrow morning. Cheek catheter was placed as patient was de-satting when he tried to stand to urinate. Urinalysis was also be obtained at that time. 03/02: Patient continues to feel a bit better, he is currently on 15 L along with an nonrebreather, he denies any chest pain his less short of breath, he continues to emboly very carefully, his appetite is okay, he has no diarrhea, he has no pleurisy, he has no hemoptysis, the swelling in both lower extremities are better, we'll continue with supportive care, patient is complaining of increased constipation stool softener along with MiraLAX will be added. 03/03: Patient sitting up in bed is feeling better today, he still didn't have a bowel movement, MiraLAX will be admitted, along with the Senokot 2 tablet a day, continue activity, continue Decadron 6 mg orally once every day, continue to monitor the patient very closely, continue oxygen support with 15 L an nonrebreather as needed, patient appears to be a lot better today than he was yesterday we'll continue to monitor very closely. 03/04: Patient had a bowel movement yesterday after medications. He states his breathing is little bit better today. He's been on high flow nasal cannula 15 L an nonrebreather with pulse ox running between 91 and 95%. He has been afebrile, heart rate 109, blood pressure 124/76. Blood work this morning is pending at the time of this dictation. Patient is continued on Lovenox, dexamethasone oral and vitamin supplements. Patient is followed closely by pulmonary medicine. 03/05: Patient sitting up in the chair continued to be on nonrebreather along with 8 L, he continues to be somewhat short of breath with minimum exertion, his computed tomography scan of the chest showed evidence of pulmonary fibrosis with severe emphysema without evidence of pulmonary embolism, he continues to be on Decadron, we'll continue to follow the patient very closely. 03/06: Patient is continued on nonrebreather and 10 L high flow nasal cannula. He has been afebrile, heart rate in the low 100s, blood pressure 116/70. WBC 11 BUN 32 creatinine 0.87. Blood sugar 109. A LT 77. Patient has been stable with minimal improvement of his oxygenation and unable to wean down on oxygen therapy in order to go home. Discussed with the patient about long-term care facility and he is agreeable, we will plan for or Thursday of this week, social work is following. Is followed by pulmonary medicine. 03/07: Patient has been afebrile, heart rate 110, blood pressure 120/73 and pulse ox of 94% on high flow nasal cannula 6 L nonrebreather. Patient is sleeping in recliner weakens easily to verbal stimuli. No new concerns. Patient has been followed closely by pulmonary medicine and cleared for discharge to LTAC once arrangements are completed. Social work is following closely and trying to make arrangements for discharge today. REVIEW OF SYSTEMS: Constitutional: Denies fever, chills, night sweats. No weight change. positive for weakness, reports fatigue no lethargy. Denies daytime sleepiness. HEENT: No headache. No nasal drainage or congestion. No epistaxis. Reports sore throat. Lungs: Continued shortness of breath with oxygen therapy slowly improving, positive for cough, positive for white sputum production. No wheezing. Reports dyspnea with minimal activity. Cardiovascular: No chest pain, no lower extremity edema. No palpitations. No paroxysmal nocturnal dyspnea. No orthopnea. No lightheadedness or dizziness. No syncopal episodes. Abdominal: denies abdominal pain. No nausea, vomiting. Denies diarrhea. No c onstipation. No bloody or tarry stools. Reports loss of appetite. Genitourinary: No dysuria, increased frequency, urgency. No urinary retention. Musculoskeletal: positive for myalgias. positive for generalized muscle weakness, no gait dysfunction, no frequent falls. Reports back pain. No neck pain. Integumentary: No wounds, no lesions. No rash. No unusual bruising. Neurologic: No aphasia. No facial droop. No change in mentation. No head injury. No headache. No paralysis. No paresthesia. Psychiatric: No depression. No anxiety. Endocrine: Mildly abnormal blood sugars. PHYSICAL EXAMINATION: General: 56-year-old male sitting in recliner no acute respiratory distress at rest. Patient appears to be comfortable. HEENT: Head is atraumatic, normocephalic, pupils were equal round, sclera nonicteric, conjunctivae were pale. Neck: Supple, no JVP, normal carotid upstroke bilaterally, no lymphadenopathy. Chest: Decreased breath sounds at the bases, few rhonchi, no chest wall tenderness, no intercostal retractions at rest. Heart: First heart sound is normal, second heart sounds normal, there is no gallop or murmur. Abdomen: Soft, nontender, nondistended, positive bowel sounds, no hepatosplenomegaly. Cheek catheter draining clear helga urine. Extremities: There is 1+ edema no calf tenderness DP +2 bilaterally. Neurologic examination: Patient is awake alert and oriented X 3, cranial nerves II-12 appear grossly intact. ASSESSMENT AND PLAN: 1. Acute hypoxemic respiratory failure due to bilateral patchy interstitial pneumonia due to COVID-19 pneumonia and sepsis (POA). Continue patient on Lovenox 40 mg subcu daily, Decadron 6 mg orally every day, Vitamin C 1000 mg orally once every day, zinc 220 mg once every day, vitamin D 1000 units once every day, completed course of Baricitinib, continue oxygen therapy on nonrebreather and nasal cannula. Continue Lasix 40 mg orally once every day. 2. Bilateral Covid pneumonia with ARDS. Continue with failure oxygen plus nonrebreather, continue dexamethasone 6 mg orally every day, continue with supportive care. 3. Mild non-anion gap metabolic acidosis. Resolved. 4. Moderate protein calorie malnutrition secondary to decreased appetite and difficulty eating with oxygen mask. Continue Ensure 3 times daily. 5. Acute drug-induced hepatitis. Monitor the patient CMP. 6. Underlying emphysema and pulmonary fibrosis. 7. History of tobacco use and dependence. 8. GERD and GI prophylaxis. Continue patient on Protonix 40 mg oral twice daily. 9. Constipation. Continue Senokot 2 tablet at bedtime along with MiraLAX 17 g in 8 ounces water once every day. 10. DVT prophylaxis. Continue Lovenox 40 mg subcutaneously every 24 hours Patient is full code. Guarded prognosis. DISCHARGE PLAN LTAC or Thursday Impression and plan of care have been directed as dictated by the signing physician. Viridiana Baker nurse practitioner acting as scribe for signing physician. Objective - Vital Signs Vital signs: Vital Signs Temp 97.6 F 03/07/21 04:00 Pulse 110 H 03/07/21 04:00 Resp 20 03/07/21 04:00 BP 128/73 03/07/21 04:00 Pulse Ox 93 L 03/07/21 04:00 Intake & Output 03/06/21 03/07/21 03/07/21 18:59 06:59 18:59 Intake Total 361 Output Total 1000 1100 Balance -639 -1100 Weight 77.2 kg Intake: Oral 361 Output: Urine 1000 1100 Other: Voiding Method Urinal Urinal # Voids 2 # Bowel Movements 1 - Labs CBC & Chem 7: 03/06/21 07:20 12 07:20 Labs: Abnormal Lab Results - Last 24 Hours (Table) 03/06/21 03/06/21 Range/Units 07:20 07:20 WBC 11.0 H (3.8-10.6) k/uL RBC 4.11 L (4.30-5.90) m/uL Neutrophils # 9.0 H (1.3-7.7) k/uL Carbon Dioxide 31 H (22-30) mmol/L BUN 32 H (9-20) mg/dL Glucose 109 H (74-99) mg/dL ALT 77 H (4-49) U/L
[2021-03-07] MEDS: ENOXAPARIN 40 MG/0.4 ML SYRINGE SQ SCH (09:43)
[2021-03-07] MEDS: CHOLECALCIFEROL 25 MCG (1000 IU) TABLET PO SCH (09:43)
[2021-03-07] MEDS: SENNOSIDES-DOCUSATE SODIUM 1 EACH TAB PO SCH ×2 (09:44→20:57)
[2021-03-07] MEDS: ALPRAZolam 0.25 MG TAB PO PRN ×2 (09:44→20:57)
[2021-03-07] MEDS: ZINC SULFATE 220 MG CAP PO SCH (09:44)
[2021-03-07] MEDS: MULTIVITAMINS, THERA 1 EACH TAB PO SCH (09:44)
[2021-03-07] MEDS: POTASSIUM CHLORIDE ER 20 MEQ TAB.ER PO SCH (09:44)
[2021-03-07] MEDS: polyethylene glycoL 3350 17 GM POWD.PACK PO SCH (09:45)
[2021-03-07] MEDS: dexAMETHasone 2 MG TAB PO SCH (09:45)
[2021-03-07] MEDS: FUROSEMIDE 40 MG TAB PO SCH (09:45)
[2021-03-07] MEDS: guaiFENesin 600 MG TABLET.ER PO SCH ×2 (09:45→20:57)
[2021-03-07] MEDS: ASCORBIC ACID 500 MG TAB PO SCH (09:46)
--- NOTE | 2021-03-07 17:52 | P.PN ---
Subjective Progress Note Date: 03/07/21 Principal diagnosis: Dyspnea On 02/28/2021 patient seen in follow-up on selective care unit, is currently on Airvo at 40 L and FiO2 of 50% in addition to nonrebreather mask, he is maintaining O2 saturations between 90-94%, she is currently sitting up in the chair, does not appear to be in acute distress, although has exertional dyspnea and conversational dyspnea. Denies any fever or chills, his last chest x-ray was yesterday showed diffuse bilateral lung infiltrates stable in appearance. patient continues on Decadron 6 blood gram daily, Lovenox 40 mg daily, he continues on daily dose of Lasix 40 mg daily, no new labs today. Yesterday's labs have been reviewed, his inflammatory markers overall have been improving through the course of his hospitalization. Last d-dimer was 1.15. His pro calcitonin level has been negative 2. His electrolytes were unremarkable on y esterday's labs, BUN was 37 and creatinine was 0.86. On 03/05/2021 patient seen in follow-up on selective care unit. He is currently on 8 L per high flow nasal cannula, and nonrebreather mask, and his pulse ox is 90-92%, he has been tolerating elevation to the bathroom, does have exertional dyspnea, but overall his FiO2 requirements have decreased when patient was previously on Airvo in addition to the nonrebreather mask. He is awake and alert, no altered mentation, he is oriented 3. No worsening dyspnea, occasional cough, no phlegm production. CT angiogram of the chest shows no evidence of pulmonary embolism, and previous pulmonary emphysema and pulmonary fibrosis. Small pericardial effusion slightly improved compared his old exam. Patient is currently on Decadron 6 mg daily, he is on COVID-19 vitamins, and prophylactic Lovenox 40 mg daily. On 03/06/2021 patient is seen in follow-up on selective care unit, patient's clinical condition has essentially remained stable for several days, he is on 10 L per high flow nasal cannula and nonrebreather mask, his pulse ox is 94-95%, he is awake and alert, he still has exertional dyspnea, he desaturates with ambulation, it takes him a while to recover this morning he ambulated to the bathroom, became very tachypneic, desatted to 80%, and was placed on BiPAP support briefly, he has since recovered, he is back on high flow nasal cannula and nonrebreather mask, breathing fairly comfortable, no other acute events overnight,. No complaints of chest discomfort, nonproductive cough, occasional, he continues on Decadron 6 blood gram daily, he is on prophylactic dose Lovenox, he is on oral Lasix, cough medications, he is on COVID-19 vitamins. He is on when necessary Xanax for anxiety and breathlessness. His CT angiogram showed no evidence of pulmonary embolism and previously noted pulmonary emphysema and pulmonary fibrosis. He is tolerating oral intake, no nausea vomiting diarrhea, no abdominal pain. Today's labs have been reviewed his white blood cell count is 11, hemoglobin is 13.3, his electrolytes and renal profile are unremarkable. D-dimer is 1.02, pro calcitonin level is negative at 0.11. On 03/07/2021 patient seen in follow-up on selective care unit, patient is currently on 6 L per high flow nasal cannula and 100% nonrebreather mask. Any attempt to discontinue nonrebreather mask results in desaturation. However patient does not tolerate higher flow through his nasal cannula possibly related to his previous history of septal deviation and obstruction. Patient's O2 saturations are better with nonrebreather mask, otherwise clinically he is unchanged, he is awake and alert, in no acute distress, he does get short of breath and desaturated with ambulation, he recovers with rest. He has been ambulating to the bathroom and back, tolerates it fairly well, he is currently sitting up in the recliner, occasional cough, no chest pain, he remains on Decadron 6 mg daily, he is on COVID-19 vitamins, and prophylactic Lovenox. Patient has been using the nasal saline rinses. His most recent CT angiogram of the chest from 03/04/2021 showed no evidence of pulmonary embolism. Denies any acute distress, he is tolerating oral intake. Denies any nausea vomiting or diarrhea. His pro calcitonin level from 03/04/2021 to show no growth. Objective - Vital Signs Vital signs: Vital Signs Temp 97.6 F 03/07/21 04:00 Pulse 109 H 03/07/21 16:00 Resp 18 03/07/21 16:00 BP 94/56 03/07/21 16:00 Pulse Ox 93 L 03/07/21 12:13 Intake & Output 03/06/21 03/07/21 03/07/21 18:59 06:59 18:59 Intake Total 361 125 Output Total 1000 1100 500 Balance -639 -1100 -375 Weight 77.2 kg Intake: Oral 361 125 Output: Urine 1000 1100 500 Other: Voiding Method Urinal Urinal # Voids 2 # Bowel Movements 1 - Exam GENERAL EXAM: Alert, 56-year-old white male, 6 L per high flow nasal cannula in addition to nonrebreather mask with a pulse ox of 93% HEAD: Normocephalic/atraumatic. EYES: Normal reaction of pupils, equal size. Conjunctiva pink, sclera white. NOSE: Clear with pink turbinates. THROAT: No erythema or exudates. NECK: No masses, no JVD, no thyroid enlargement, no adenopathy. CHEST: No chest wall deformity. Symmetrical expansion. LUNGS: Equal air entry with diffuse crackles CVS: Regular rate and rhythm, normal S1 and S2, no gallops, no murmurs, no rubs ABDOMEN: Soft, nontender. No hepatosplenomegaly, normal bowel sounds, no guard ing or rigidity. EXTREMITIES: No clubbing, no edema, no cyanosis, 2+ pulses and upper and lower extremities. MUSCULOSKELETAL: Muscle strength and tone normal. SPINE: No scoliosis or deformity SKIN: No rashes CENTRAL NERVOUS SYSTEM: Alert and oriented -3. No focal deficits, tone is normal in all 4 extremities. PSYCHIATRIC: Alert and oriented -3. Appropriate affect. Intact judgment and insight. - Labs CBC & Chem 7: 03/06/21 07:20 03/06/21 07:20 Assessment and Plan Plan: Assessment: #1. Acute COVID 19 related pneumonia with secondary respiratory failure. Currently on airvo 40 liters and 50% Fio2. Chest x-ray showing diffuse bilateral pulmonary infiltrates consistent with COVID 19 related pneumonia. No interval worsening in his chest x-ray findings. The inflammatory markers including the LDH and CRP are being monitored. D-dimer is also lower. The patient is still on Decadron 6 mg and the patient has completed Baricitinib. The patient remains on Lovenox for DVT prophylaxis. Chest x-ray findings are stable. Since yesterday, the patient had some worsening shortness of breath and some setback as the patient got himself off the high flow oxygen. Currently is back on 40 L with an FiO2 of 50% along with that he is using 100% nonrebreather facemask and the patient is also demonstrating a stable chest x-ray. He is on anticoagulation. He is on Decadron. Repeat COVID 19 testing was again positive. #2. Acute on chronic shortness of breath secondary to above #3. Advanced pulmonary emphysema and pulmonary fibrosis as seen on the CT angiogram of the chest #4. Former smoker #5. Hypertension and hypertensive cardiovascular disease #6. Hyperlipidemia Plan: Patient is currently on 6 L high flow nasal cannula and nonrebreather mask Patient's O2 saturations are better with nonrebreather mask possibly related to history of septal deviation No fever or chills No chest discomfort Remains on Decadron, prophylactic Lovenox CTA chest showed no evidence of pulmonary embolism Vital signs have been stable, no fever or chills No signs of infection Patient has been tolerating ambulation, clinically his condition has remained stable We will try the patient on Airvo at 40 L and FiO2 40% Patient could be considered for LTAC placement today or tomorrow I performed a history & physical examination of the patient and discussed their management with my nurse practitioner, Shelby Eaton. I reviewed the nurse practitioner's note and agree with the documented findings and plan of care. Lung sounds are positive for dim with basilar crackles throughout the lung [place]. The findings and the impression was discussed with the patient. I attest to the documentation by the nurse practitioner. Time with Patient: Less than 30
[2021-03-08] MEDS: PANTOPRAZOLE 40 MG TABLET PO SCH ×2 (06:14→17:00)
[2021-03-08] MEDS: guaiFENesin 600 MG TABLET.ER PO SCH ×2 (08:54→21:20)
[2021-03-08] MEDS: ALPRAZolam 0.25 MG TAB PO PRN ×2 (08:54→21:19)
[2021-03-08] MEDS: ZINC SULFATE 220 MG CAP PO SCH (08:54)
[2021-03-08] MEDS: SENNOSIDES-DOCUSATE SODIUM 1 EACH TAB PO SCH ×2 (08:54→21:20)
[2021-03-08] MEDS: dexAMETHasone 2 MG TAB PO SCH (08:54)
[2021-03-08] MEDS: POTASSIUM CHLORIDE ER 20 MEQ TAB.ER PO SCH (08:54)
[2021-03-08] MEDS: MULTIVITAMINS, THERA 1 EACH TAB PO SCH (08:54)
[2021-03-08] MEDS: ASCORBIC ACID 500 MG TAB PO SCH (08:55)
[2021-03-08] MEDS: FUROSEMIDE 40 MG TAB PO SCH (08:55)
[2021-03-08] MEDS: polyethylene glycoL 3350 17 GM POWD.PACK PO SCH ×2 (08:55→09:14)
[2021-03-08] MEDS: ENOXAPARIN 40 MG/0.4 ML SYRINGE SQ SCH (08:55)
[2021-03-08] MEDS: CHOLECALCIFEROL 25 MCG (1000 IU) TABLET PO SCH (08:55)
--- NOTE | 2021-03-08 09:37 | P.PN ---
Subjective Progress Note Date: 03/08/21 HISTORY OF PRESENT ILLNESS: This is a 56-year-old male with a past medical history significant for hypertension and hypertensive cardiovascular disease, hyperlipidemia, history of tobacco use and dependence, presented to the emergency department at [facility] with increased coughing and increased shortness breath that started last and has been getting worse over the last few days, yesterday he was extremely short of breath and his oxygen saturation was in the low 70s, his tried to get him to the ER but eventually called 911 and the patient was brought into the ER at [facility] where he had a chest x-ray that did show evidence of bilateral patchy infiltrate suggestive of Covid pneumonia, his COVID-19 PCR was positive, patient was started on nonrebreather, and later on was seen in consultation by pulmonary medicine and he was placed on Airvo and was started on Bacitinib 4 mg po daily and the patient was admitted to the hospital for further evaluation and treatment. 02/05: A shunt is currently on AirVol. He has complained of feeling tired and complaining of gastric reflux. Protonix will be increased to 40 mg IV push twice daily. Patient is been seen by pulmonary medicine and started on Baricitinib, continued on dexamethasone 6 mg twice daily, Lovenox 40 mg daily. He has been afebrile, heart rate 92, blood pressure 137/86, pulse ox 97%. Repeat blood work reveals WBC 2.2, d-dimer 3.33, blood sugar 143. LDH 735, C-r eactive protein 15.5. Chest x-ray reveals chronic emphysematous and pulmonary fibrotic changes with bilateral multifocal reticular nodular opacities consistent with COVID-19. Perhaps slight improvement in the right lung base. Ultrasound of bilateral lower extremities negative for DVT. 02/06: Last evening, patient was transferred into the intensive care unit as he was on 15 L nonrebreather was transitioned over to AirVo 60 L 90% with nonrebreather on top. Pulse ox is currently running 84-87%. He has been afebrile, heart rate in the 80s and 90s, respiratory rate 29, blood pressure 131/82. Patient is requesting Cepacol lozenges and nasal spray added. Ensure 3 times daily also added, patient has decreased appetite and limited oral intake. Repeat blood work reveals WBC 4.9, hemoglobin 13.6. Platelet count 381. D- dimer 2.15. LDH 1685. C-reactive protein 5.6. Repeat chest x-ray revealed continue his Covid infiltrate superimposed on bollous emphysema. Slight improvement in aeration in the right upper lobe. Patient is continued on dexamethasone, Lovenox, vitamin supplements and Baricitinib. 02/07:patient remains in the intensive care unit. He is on nonrebreather mask as well as high flow AirVo with O2 at 60 L, FiO2 90%. patient remains afebrile, heart rate in the 70s, respiratory rate 26, blood pressure 127/79, pulse ox 86- 88%, pulse ox drops in the low 80s when patient ate's. He is on ensure 3 times daily. Patient is complaining of some cough and back pain when he coughs. He is less fatigued today. 02/08: Patient remains in intensive care unit currently on nonrebreather, as well as a high flow airflow oxygen still borderline at 89%, patient is eating his protein, hysterectomy 8 his breakfast, he has no chest pain at this time he continues to be extreme short of breath, he has no abdominal pain, he had lost some of the states, he has no headache, he has no hemoptysis, he has no pleurisy, he has no edema. 02/09: Patient sitting up in a chair his feeling a bit better. He continues to be on nonrebreather along with airflow 60 L, he denies any chest pain, his continues to be somewhat short of breath, he continues to struggle with breathing, has no abdominal pain, he had a good bowel movement yesterday, he is tolerating his food, patient is stable at this point in time, he will stay in the intensive care unit due to his oxygen requirement, chest x-ray showed bilateral diffuse infiltrate suggestive of Covid pneumonia, he continues to be on Decadron 6 mg orally twice every day, we'll continue conservative management continue supportive care continue Baricitinib daily for a total of 14 doses today is 08/10 02/10: Patient is feeling better today he continues to be on airVO and NRB, continues to require a lot of oxygen, sitting up and eating his breakfast, he has no chest pain, no pleurisy, he does competitive achiness in the back of his legs, he is current;y on Baricitinib Day #6 out of 14. 02/11: Patient is seen today in the ICU. He is on AirVo had 90% 60 L and nonrebreather is used as needed. Patient is more mobile in his room. He has been afebrile, heart rate 81 and 96, blood pressure 127/72 area pulse ox 87-95%. Repeat blood work reveals WBC 15.5. Electrolytes normal. BUN 27 creatinine 0.84. Blood sugar 145. Liver function tests were normal. Patient is on regular diet and protein supplements. He is continued on Baricitinib, oral dexamethasone, Lovenox and supplements. 02/12: Patient remains in intensive care unit. He is on AirVo plus nonrebreather but he is keeping NRB in place except for oral intake. He has b een afebrile, heart rate 89, respiratory rate 23-30, blood pressure 132/75, pulse ox 90%. CTA of the chest showed no pulmonary embolism. Small pericardial effusion. Extensive emphysematous changes and/or pulmonary fibrosis. Patient is on regular diet and protein supplements. No vomiting or diarrhea. WBC 14.2. Creatinine 0.76. Blood sugar 142. ALT 71. 02/13: Patient is currently on AirVo and nonrebreather with pulse ox 82-96%. He has been afebrile, heart rate in the 90s, respiratory rate 19-36. Blood pressure 132/84. WBC 17.9. Sodium 134. Blood sugar 125. Patient is continued on supplements, Baricitinib, dexamethasone and Lovenox. 02/14: Patient remains in the intensive care unit on airvo and nonrebreather. He states he was up in a chair for a little while yesterday. He still has coughing, no fever or chills. He is taking protein supplement. Patient has been afebrile, heart rate 97, blood pressure 139/88, respiratory rate 24, pulse ox 92%. WBC 17.6. Sodium 131. Patient is continued on supplements, Baricitinib, dexamethasone and Lovenox. 02/15: Patient remains in the intensive care unit on AirVo and nonrebreather with pulse ox of 94%. Patient's been afebrile, heart rate 86, respiratory rate 22, blood pressure 120/75. Review blood work reveals WBC 21. AST 82, ALT 229. Sodium 131, potassium 4.8, creatinine 0.88. Patient is complaining of oral pain, grinding his teeth. Patient is continued on supplements, Baricitinib, dexamethasone and Lovenox. 02/16: Patient moved out of the ICU, his currently in the telemetry unit, his monitor showing sinus tachycardia with PACs, he continues to be on airVo and nonrebreather his oxygen is about 93%, it does drop to 88-89% with activity and exertion, he continues to be generally weak, he has no chest pain at this time, he has no pleurisy, there is no hemoptysis, he has no abdominal pain, nausea or vomiting, he seems to be tolerating her treatment very well. 02/17: Patient is about the same he continues to be in a telemetry unit, he continues to have sinus tachycardia, he continues to be on same oxygen he continues to be about the same, he is currently maintained on Decadron as well as Baricitinib for a total of 14 doses, we will continue to monitor his liver function tests, and as he continues to have transaminitis., Patient denies any chest pain at this time he has no abdominal pain, nausea vomiting or diarrhea. 02/18: Patient is seen sitting up in a chair today. He is on AirVO nonrebreather with pulse ox 92%. His been afebrile, heart rate 112, blood pressure 128/73. Patient is currently on dexamethasone, Lovenox and vitamin supplements. He has completed his course of Baricitinib. Repeat blood work reveals WBC 31.2, hemoglobin 15, platelet count 601. Sodium 131, potassium 4.7, chloride 97, CO2 25, BUN 32 creatinine 0.8. Blood sugars are running between 117 and 130s. AST is 198, ALT 875. Alkaline phosphatase 82. 02/19: Patient is currently on AirVo only with pulse ox of 8792%. He has been afebrile, heart rate 107, blood pressure 114/77. Have any nausea vomiting, no diarrhea. He states he is feeling better from yesterday. No repeat chest x-ray is scheduled for today. Repeat blood work will be ordered for tomorrow. Patient is been monitored closely and followed by the pulmonary service since admission. Currently he is on 60 L oxygen via high flow nasal cannula with FiO2 of 68%. Slightly tachypneic and got short of breath when he talks. Labs reviewed WBC 23k, d-dimer 0.75, sodium slightly low 129, potassium slightly high at 5.3, liver enzymes slightly elevated, lactate dehydrogenase is elevated 1114. Poorcalcitonin is 0.19, was 0.08. Chest x-ray showing COPD with patchy bilateral Covid pneumonia. Patient currently kept on dexamethasone 6 mg daily, vitamin C, vitamin D and zinc. Also he is on Pepcid and Lovenox. 02/22/2021 Patient reports some improvement in his shortness of breath. Today following a T-max trying to wean him down with lowering oxygen requirement 60 down to 40 L per minute with FiO2 68 down to 50% this morning. Patient is to cardiac and more tachypneic during these attempts for now, we will keep monitoring. However he does not report any worsening dyspnea. Sodium improved to 134, potassium down to 5.0. He remains on dexamethasone and multiple vitamins. Also he is on Lovenox and Pepcid We will keep monitoring 02/23/2021 Patient today show significant improvement with drop of oxygen requirement down to 15 L/m, patient reports more easier breathing. No much coughing. WBC 20 2K, d-dimer is stable at 0.7. Potassium normal at 4.3. Lactate dehydrogenase still elevated but stable at 1023. Patient remains on the same treatment of dexamethasone, multiple vitamins, Lovenox and Pepcid 02/24/2021 Patient awake and alert, he feels generally weak, significantly dyspneic while talking. Looks more tired and lethargic. Patient is hypoxic requiring 15 L/m nonrebreather and interval of 40 L at 50%, he is tachypneic and tachycardic. Heart rate around 119. Chest x-ray: Chronic parenchymal changes with left mid lung and bibasilar opacities consistent with known covid 19 infection. No significant change. Patient remains on vitamin C, D and zinc, dexamethasone, Lovenox and Pepcid 02/25: Patient is on nonrebreather and AirVo pulse ox of 91%. He's been afebrile, heart rate 118, blood pressure 1 3472. Patient complains of feeling tired. Repeat chest x-ray ordered, Lasix at 40 mg IV every 12 hours, Mucinex ordered. WBC 20.1. Magnesium 2.5. LDH 1039, C-reactive protein 4.3, pro-calcitonin 0.16. Patient is continued on dexamethasone, Lovenox and vitamin supplements. 02/26: Pulse ox is running 89 and 99% with nonrebreather at 15 L and high flow nasal cannula at 15 L. He remains afebrile, heart rate 113, respiratory rate 24, blood pressure 117/72. No repeat blood work today. Patient states he slept well last night but he was having cramps yesterday most likely from diuresing. He did have 3000 ml urine out and Lasix decreased to once daily. Patient has less lower extremity edema and lower extremity ultrasound bilaterally ordered. Patient was complaining of back discomfort for which baclofen will be ordered. Repeat blood work and chest x-ray for tomorrow. Chest x-ray from yesterday reveals coarse basilar infiltrates unchanged from prior study. 02/27: Patient is now on 15 L nonrebreather, off AirVo.. His pulse ox is 95%. He's been afebrile, heart rate 114, respiratory rate 25, blood pressure 130/84. Patient has decreased lower extremity edema will be continued on Lasix 40 mg IV daily. He had a repeat Covid test done yesterday which was positive. Repeat chest x-ray reveals diffuse bilateral lung infiltrates stable. Venous Doppler bilateral lower extremity negative for DVT. 02/28: Patient is seen in follow-up today. He is resting and recliner. He has been afebrile, heart rate 110, blood pressure 122/72, respiratory rate 18-24, pulse ox 97% on high flow nasal cannula and AirVo. Repeat blood work reveals sodium 134, potassium 5.0, chloride 98, CO2 29, BUN 37 creatinine 0.86. Blood sugar 131. Patient is continued on vitamin supplements, dexamethasone, Lovenox. 03/01: The patient is now on nonrebreather only at 15 L with pulse ox of 95%. His been afebrile, heart rate 113, blood pressure 147/75. front desk monitor is a sinus rhythm. Patient's breathing status overall is improving but he still has significant shortness of breath with minimal activity. Patient continues to have cough with mild sputum production. We'll plan to remove Cheek catheter tomorrow morning. Cheek catheter was placed as patient was de-satting when he tried to stand to urinate. Urinalysis was also be obtained at that time. 03/02: Patient continues to feel a bit better, he is currently on 15 L along with an nonrebreather, he denies any chest pain his less short of breath, he continues to emboly very carefully, his appetite is okay, he has no diarrhea, he has no pleurisy, he has no hemoptysis, the swelling in both lower extremities are better, we'll continue with supportive care, patient is complaining of increased constipation stool softener along with MiraLAX will be added. 03/03: Patient sitting up in bed is feeling better today, he still didn't have a bowel movement, MiraLAX will be admitted, along with the Senokot 2 tablet a day, continue activity, continue Decadron 6 mg orally once every day, continue to monitor the patient very closely, continue oxygen support with 15 L an nonrebreather as needed, patient appears to be a lot better today than he was yesterday we'll continue to monitor very closely. 03/04: Patient had a bowel movement yesterday after medications. He states his breathing is little bit better today. He's been on high flow nasal cannula 15 L an nonrebreather with pulse ox running between 91 and 95%. He has been afebrile, heart rate 109, blood pressure 124/76. Blood work this morning is pending at the time of this dictation. Patient is continued on Lovenox, dexamethasone oral and vitamin supplements. Patient is followed closely by pulmonary medicine. 03/05: Patient sitting up in the chair continued to be on nonrebreather along with 8 L, he continues to be somewhat short of breath with minimum exertion, his computed tomography scan of the chest showed evidence of pulmonary fibrosis with severe emphysema without evidence of pulmonary embolism, he continues to be on Decadron, we'll continue to follow the patient very closely. 03/06: Patient is continued on nonrebreather and 10 L high flow nasal cannula. He has been afebrile, heart rate in the low 100s, blood pressure 116/70. WBC 11 BUN 32 creatinine 0.87. Blood sugar 109. A LT 77. Patient has been stable with minimal improvement of his oxygenation and unable to wean down on oxygen therapy in order to go home. Discussed with the patient about long-term care facility and he is agreeable, we will plan for or Thursday of this week, social work is following. Is followed by pulmonary medicine. 03/07: Patient has been afebrile, heart rate 110, blood pressure 120/73 and pulse ox of 94% on high flow nasal cannula 6 L nonrebreather. Patient is sleeping in recliner weakens easily to verbal stimuli. No new concerns. Patient has been followed closely by pulmonary medicine and cleared for discharge to LTAC once arrangements are completed. Social work is following closely and trying to make arrangements for discharge today. 03/08: Patient was not discharged to LTAC they will not accept a patient with nonrebreather. In concern that he does not get good oxygenation due to deviated symptoms when using a nasal cannula device. He states that yesterday he got up to the commode chair which was right next to his chair and it took him 3 hours to recuperate. He asked whether an ENT doctor could come in and do a procedure on his nose for the deviated septum but this is not an option. He remains on a nonrebreather as well as AirVo 40 L and FiO2 of 40% with pulse ox of 94%. Heart rate 110, blood pressure 105/72. Patient's been afebrile. We will start we aning off dexamethasone. REVIEW OF SYSTEMS: Constitutional: Denies fever, chills, night sweats. No weight change. positive for weakness, reports fatigue no lethargy. Denies daytime sleepiness. HEENT: No headache. No nasal drainage or congestion. No epistaxis. Reports sore throat. Lungs: Continued shortness of breath with oxygen therapy slowly improving, positive for cough, positive for white sputum production. No wheezing. Reports dyspnea with minimal activity. Cardiovascular: No chest pain, no lower extremity edema. No palpitations. No paroxysmal nocturnal dyspnea. No orthopnea. No lightheadedness or dizziness. No syncopal episodes. Abdominal: denies abdominal pain. No nausea, vomiting. Denies diarrhea. No constipation. No bloody or tarry stools. Reports loss of appetite. Genitourinary: No dysuria, increased frequency, urgency. No urinary retention. Musculoskeletal: positive for myalgias. positive for generalized muscle weakness, no gait dysfunction, no frequent falls. Reports back pain. No neck pain. Integumentary: No wounds, no lesions. No rash. Neurologic: No aphasia. No facial droop. No change in mentation. No head injury. No headache. No paralysis. No paresthesia. Psychiatric: No depression. No anxiety. Endocrine: Mildly abnormal blood sugars. PHYSICAL EXAMINATION: General: 56-year-old male sitting in recliner no acute respiratory distress at rest. Patient appears to be comfortable. Patient is currently on nonrebreather and AirVo. HEENT: Head is atraumatic, normocephalic, pupils were equal round, sclera nonicteric, conjunctivae were pale. Neck: Supple, no JVP, normal carotid upstroke bilaterally, no lymphadenopathy. Chest: Decreased breath sounds at the bases, few rhonchi, no chest wall tenderness, no intercostal retractions at rest. Heart: First heart sound is normal, second heart sounds normal, there is no gallop or murmur. Abdomen: Soft, nontender, nondistended, positive bowel sounds, no hepatosplenomegaly. Extremities: There is 1+ edema no calf tenderness DP +2 bilaterally. Neurologic examination: Patient is awake alert and oriented X 3, cranial nerves II-12 appear grossly intact. ASSESSMENT AND PLAN: 1. Acute hypoxemic respiratory failure due to bilateral patchy interstitial pneumonia due to COVID-19 pneumonia and sepsis (POA). Continue patient on Lovenox 40 mg subcu daily, Decadron 6 mg orally every day be discontinued and start 4 mg daily for 7 days and then 2 mg daily. Continue Vitamin C 1000 mg orally once every day, zinc 220 mg once every day, vitamin D 1000 units once every day, completed course of Baricitinib, continue oxygen therapy on nonrebreather and nasal cannula. Continue Lasix 40 mg orally once every day. 2. Bilateral Covid pneumonia with ARDS. Continue with failure oxygen plus nonrebreather, continue dexamethasone 6 mg orally every day, continue with supportive care. 3. Mild non-anion gap metabolic acidosis. Resolved. 4. Moderate protein calorie malnutrition secondary to decreased appetite and difficulty eating with oxygen mask. Continue Ensure 3 times daily. 5. Acute drug-induced hepatitis. Monitor the patient CMP. 6. Underlying emphysema and pulmonary fibrosis. 7. History of tobacco use and dependence. 8. GERD and GI prophylaxis. Continue patient on Protonix 40 mg oral twice daily. 9. Constipation. Continue Senokot 2 tablet at bedtime along with MiraLAX 17 g in 8 ounces water once every day. 10. DVT prophylaxis. Continue Lovenox 40 mg subcutaneously every 24 hours Patient is full code. Guarded prognosis. DISCHARGE PLAN LTAC once patient is off NRB Impression and plan of care have been directed as dictated by the signing physician. Viridiana Baker nurse practitioner acting as scribe for signing physician. Objective - Vital Signs Vital signs: Vital Signs Temp 97.4 F L 03/07/21 20:00 Pulse 110 H 03/08/21 04:00 Resp 24 03/08/21 04:00 BP 105/72 03/08/21 04:00 Pulse Ox 94 L 03/08/21 04:00 Intake & Output 03/07/21 03/08/21 03/08/21 18:59 06:59 18:59 Intake Total 569 Output Total 500 Balance 69 Weight 77.2 kg Intake: Oral 569 Output: Urine 500 Other: # Voids 1 # Bowel Movements 1 - Labs CBC & Chem 7: 03/06/21 07:20 03/06/21 07:20
[2021-03-08] MEDS: ZOLPIDEM 5 MG TAB PO PRN (21:20)
[2021-03-08] MEDS: BACLOFEN 10 MG TAB PO PRN (21:27)
[2021-03-09] MEDS: BACLOFEN 10 MG TAB PO PRN (04:00)
[2021-03-09] MEDS: PANTOPRAZOLE 40 MG TABLET PO SCH ×2 (06:39→16:35)
[2021-03-09] MEDS: polyethylene glycoL 3350 17 GM POWD.PACK PO SCH (09:39)
[2021-03-09] MEDS: ASCORBIC ACID 500 MG TAB PO SCH (09:39)
[2021-03-09] MEDS: ZINC SULFATE 220 MG CAP PO SCH (09:39)
[2021-03-09] MEDS: CHOLECALCIFEROL 25 MCG (1000 IU) TABLET PO SCH (09:39)
[2021-03-09] MEDS: FUROSEMIDE 40 MG TAB PO SCH (09:39)
[2021-03-09] MEDS: guaiFENesin 600 MG TABLET.ER PO SCH ×2 (09:39→22:12)
[2021-03-09] MEDS: dexAMETHasone 4 MG TAB PO SCH (09:39)
[2021-03-09] MEDS: ENOXAPARIN 40 MG/0.4 ML SYRINGE SQ SCH (09:39)
[2021-03-09] MEDS: SENNOSIDES-DOCUSATE SODIUM 1 EACH TAB PO SCH ×2 (09:40→22:12)
[2021-03-09] MEDS: POTASSIUM CHLORIDE ER 20 MEQ TAB.ER PO SCH (09:40)
[2021-03-09] MEDS: MULTIVITAMINS, THERA 1 EACH TAB PO SCH (09:40)
[2021-03-09] MEDS ORDERED: ACETAMINOPHEN TAB 325 MG TAB PO PRN (10:14)
--- NOTE | 2021-03-09 10:17 | P.PN ---
Subjective Progress Note Date: 03/09/21 Progress Note Date: 03/09/21 HISTORY OF PRESENT ILLNESS: This is a 56-year-old male with a past medical history significant for hypertension and hypertensive cardiovascular disease, hyperlipidemia, history of tobacco use and dependence, presented to the emergency department at [facility] with increased coughing and increased shortness breath that started last and has been getting worse over the last few days, yesterday he w as extremely short of breath and his oxygen saturation was in the low 70s, his tried to get him to the ER but eventually called 911 and the patient was brought into the ER at [facility] where he had a chest x-ray that did show evidence of bilateral patchy infiltrate suggestive of Covid pneumonia, his COVID-19 PCR was positive, patient was started on nonrebreather, and later on was seen in consultation by pulmonary medicine and he was placed on Airvo and was started on Bacitinib 4 mg po daily and the patient was admitted to the hospital for further evaluation and treatment. 02/05: A shunt is currently on AirVol. He has complained of feeling tired and complaining of gastric reflux. Protonix will be increased to 40 mg IV push twice daily. Patient is been seen by pulmonary medicine and started on Baricitinib, continued on dexamethasone 6 mg twice daily, Lovenox 40 mg daily. He has been afebrile, heart rate 92, blood pressure 137/86, pulse ox 97%. Repeat blood work reveals WBC 2.2, d-dimer 3.33, blood sugar 143. LDH 735, C- reactive protein 15.5. Chest x-ray reveals chronic emphysematous and pulmonary fibrotic changes with bilateral multifocal reticular nodular opacities consistent with COVID-19. Perhaps slight improvement in the right lung base. Ultrasound of bilateral lower extremities negative for DVT. 02/06: Last evening, patient was transferred into the intensive care unit as he was on 15 L nonrebreather was transitioned over to AirVo 60 L 90% with nonr ebreather on top. Pulse ox is currently running 84-87%. He has been afebrile, heart rate in the 80s and 90s, respiratory rate 29, blood pressure 131/82. Patient is requesting Cepacol lozenges and nasal spray added. Ensure 3 times daily also added, patient has decreased appetite and limited oral intake. Repeat blood work reveals WBC 4.9, hemoglobin 13.6. Platelet count 381. D- dimer 2.15. LDH 1685. C-reactive protein 5.6. Repeat chest x-ray revealed continue his Covid infiltrate superimposed on bollous emphysema. Slight improvement in aeration in the right upper lobe. Patient is continued on dexamethasone, Lovenox, vitamin supplements and Baricitinib. 02/07:patient remains in the intensive care unit. He is on nonrebreather mask as well as high flow AirVo with O2 at 60 L, FiO2 90%. patient remains afebrile, heart rate in the 70s, respiratory rate 26, blood pressure 127/79, pulse ox 86- 88%, pulse ox drops in the low 80s when patient ate's. He is on ensure 3 times daily. Patient is complaining of some cough and back pain when he coughs. He is less fatigued today. 02/08: Patient remains in intensive care unit currently on nonrebreather, as well as a high flow airflow oxygen still borderline at 89%, patient is eating his protein, hysterectomy 8 his breakfast, he has no chest pain at this time he continues to be extreme short of breath, he has no abdominal pain, he had lost some of the states, he has no headache, he has no hemoptysis, he has no pleurisy, he has no edema. 02/09: Patient sitting up in a chair his feeling a bit better. He continues to be on nonrebreather along with airflow 60 L, he denies any chest pain, his continues to be somewhat short of breath, he continues to struggle with breathing, has no abdominal pain, he had a good bowel movement yesterday, he is tolerating his food, patient is stable at this point in time, he will stay in the intensive care unit due to his oxygen requirement, chest x-ray showed bilateral diffuse infiltrate suggestive of Covid pneumonia, he continues to be on Decadron 6 mg orally twice every day, we'll continue conservative management continue supportive care continue Baricitinib daily for a total of 14 doses today is 08/10 02/10: Patient is feeling better today he continues to be on airVO and NRB, continues to require a lot of oxygen, sitting up and eating his breakfast, he has no chest pain, no pleurisy, he does competitive achiness in the back of his legs, he is current;y on Baricitinib Day #6 out of 14. 02/11: Patient is seen today in the ICU. He is on AirVo had 90% 60 L and nonrebreather is used as needed. Patient is more mobile in his room. He has been afebrile, heart rate 81 and 96, blood pressure 127/72 area pulse ox 87-95%. Repeat blood work reveals WBC 15.5. Electrolytes normal. BUN 27 creatinine 0.84. Blood sugar 145. Liver function tests were normal. Patient is on regular diet and protein supplements. He is continued on Baricitinib, oral dexamethasone, Lovenox and supplements. 02/12: Patient remains in intensive care unit. He is on AirVo plus nonrebreather but he is keeping NRB in place except for oral intake. He has been afebrile, heart rate 89, respiratory rate 23-30, blood pressure 132/75, pulse ox 90%. CTA of the chest showed no pulmonary embolism. Small pericardial effusion. Extensive emphysematous changes and/or pulmonary fibrosis. Patient is on regular diet and protein supplements. No vomiting or diarrhea. WBC 14.2. Creatinine 0.76. Blood sugar 142. ALT 71. 02/13: Patient is currently on AirVo and nonrebreather with pulse ox 82-96%. He has been afebrile, heart rate in the 90s, respiratory rate 19-36. Blood pressure 132/84. WBC 17.9. Sodium 134. Blood sugar 125. Patient is continued on supplements, Baricitinib, dexamethasone and Lovenox. 02/14: Patient remains in the intensive care unit on airvo and nonrebreather. He states he was up in a chair for a little while yesterday. He still has coughing, no fever or chills. He is taking protein supplement. Patient has been afebrile, heart rate 97, blood pressure 139/88, respiratory rate 24, pulse ox 92%. WBC 17.6. Sodium 131. Patient is continued on supplements, Baricitini b, dexamethasone and Lovenox. 02/15: Patient remains in the intensive care unit on AirVo and nonrebreather with pulse ox of 94%. Patient's been afebrile, heart rate 86, respiratory rate 22, blood pressure 120/75. Review blood work reveals WBC 21. AST 82, ALT 229. Sodium 131, potassium 4.8, creatinine 0.88. Patient is complaining of oral pain, grinding his teeth. Patient is continued on supplements, Baricitinib, dexamethasone and Lovenox. 02/16: Patient moved out of the ICU, his currently in the telemetry unit, his monitor showing sinus tachycardia with PACs, he continues to be on airVo and nonrebreather his oxygen is about 93%, it does drop to 88-89% with activity and exertion, he continues to be generally weak, he has no chest pain at this time, he has no pleurisy, there is no hemoptysis, he has no abdominal pain, nausea or vomiting, he seems to be tolerating her treatment very well. 02/17: Patient is about the same he continues to be in a telemetry unit, he continues to have sinus tachycardia, he continues to be on same oxygen he continues to be about the same, he is currently maintained on Decadron as well as Baricitinib for a total of 14 doses, we will continue to monitor his liver function tests, and as he continues to have transaminitis., Patient denies any chest pain at this time he has no abdominal pain, nausea vomiting or diarrhea. 02/18: Patient is seen sitting up in a chair today. He is on AirVO nonrebreather with pulse ox 92%. His been afebrile, heart rate 112, blood pressure 128/73. Patient is currently on dexamethasone, Lovenox and vitamin supplements. He has completed his course of Baricitinib. Repeat blood work reveals WBC 31.2, hemoglobin 15, platelet count 601. Sodium 131, potassium 4.7, chloride 97, CO2 25, BUN 32 creatinine 0.8. Blood sugars are running between 117 and 130s. AST is 198, ALT 875. Alkaline phosphatase 82. 02/19: Patient is currently on AirVo only with pulse ox of 8792%. He has been afebrile, heart rate 107, blood pressure 114/77. Have any nausea vomiting, no diarrhea. He states he is feeling better from yesterday. No repeat chest x-ray is scheduled for today. Repeat blood work will be ordered for tomorrow. Patient is been monitored closely and followed by the pulmonary service since admission. Currently he is on 60 L oxygen via high flow nasal cannula with FiO2 of 68%. Slightly tachypneic and got short of breath when he talks. Labs reviewed WBC 23k, d-dimer 0.75, sodium slightly low 129, potassium slightly high at 5.3, liver enzymes slightly elevated, lactate dehydrogenase is elevated 1114. Poorcalcitonin is 0.19, was 0.08. Chest x-ray showing COPD with patchy bilateral Covid pneumonia. Patient currently kept on dexamethasone 6 mg daily, vitamin C, vitamin D and zinc. Also he is on Pepcid and Lovenox. 02/22/2021 Patient reports some improvement in his shortness of breath. Today following a T-max trying to wean him down with lowering oxygen requirement 60 down to 40 L per minute with FiO2 68 down to 50% this morning. Patient is to cardiac and more tachypneic during these attempts for now, we will keep monitoring. However he does not report any worsening dyspnea. Sodium improved to 134, potassium down to 5.0. He remains on dexamethasone and multiple vitamins. Also he is on Lovenox and Pepcid We will keep monitoring 02/23/2021 Patient today show significant improvement with drop of oxygen requirement down to 15 L/m, patient reports more easier breathing. No much coughing. WBC 20 2K, d-dimer is stable at 0.7. Potassium normal at 4.3. Lactate dehydrogenase still elevated but stable at 1023. Patient remains on the same treatment of dexamethasone, multiple vitamins, Lovenox and Pepcid 02/24/2021 Patient awake and alert, he feels generally weak, significantly dyspneic while talking. Looks more tired and lethargic. Patient is hypoxic requiring 15 L/m nonrebreather and interval of 40 L at 50%, he is tachypneic and tachycardic. Heart rate around 119. Chest x-ray: Chronic parenchymal changes with left mid lung and bibasilar opacities consistent with known covid 19 infection. No significant change. Patient remains on vitamin C, D and zinc, dexamethasone, Lovenox and Pepcid 02/25: Patient is on nonrebreather and AirVo pulse ox of 91%. He's been afebril e, heart rate 118, blood pressure 1 3472. Patient complains of feeling tired. Repeat chest x-ray ordered, Lasix at 40 mg IV every 12 hours, Mucinex ordered. WBC 20.1. Magnesium 2.5. LDH 1039, C-reactive protein 4.3, pro-calcitonin 0.16. Patient is continued on dexamethasone, Lovenox and vitamin supplements. 02/26: Pulse ox is running 89 and 99% with nonrebreather at 15 L and high flow nasal cannula at 15 L. He remains afebrile, heart rate 113, respiratory rate 24, blood pressure 117/72. No repeat blood work today. Patient states he slept well last night but he was having cramps yesterday most likely from diuresing. He did have 3000 ml urine out and Lasix decreased to once daily. Patient has less lower extremity edema and lower extremity ultrasound bilaterally ordered. Patient was complaining of back discomfort for which baclofen will be ordered. Repeat blood work and chest x-ray for tomorrow. Chest x-ray from yesterday reveals coarse basilar infiltrates unchanged from prior study. 02/27: Patient is now on 15 L nonrebreather, off AirVo.. His pulse ox is 95%. He's been afebrile, heart rate 114, respiratory rate 25, blood pressure 130/84. Patient has decreased lower extremity edema will be continued on Lasix 40 mg IV daily. He had a repeat Covid test done yesterday which was positive. Repeat chest x-ray reveals diffuse bilateral lung infiltrates stable. Venous Doppler bilateral lower extremity negative for DVT. 02/28: Patient is seen in follow-up today. He is resting and recliner. He has been afebrile, heart rate 110, blood pressure 122/72, respiratory rate 18-24, pulse ox 97% on high flow nasal cannula and AirVo. Repeat blood work reveals sodium 134, potassium 5.0, chloride 98, CO2 29, BUN 37 creatinine 0.86. Blood sugar 131. Patient is continued on vitamin supplements, dexamethasone, Lovenox. 03/01: The patient is now on nonrebreather only at 15 L with pulse ox of 95%. His been afebrile, heart rate 113, blood pressure 147/75. monitor worker is a sinus rhythm. Patient's breathing status overall is improving but he still has significant shortness of breath with minimal activity. Patient continues to have cough with mild sputum production. We'll plan to remove Cheek catheter tomorrow morning. Cheek catheter was placed as patient was de-satting when he tried to stand to urinate. Urinalysis was also be obtained at that time. 03/02: Patient continues to feel a bit better, he is currently on 15 L along with an nonrebreather, he denies any chest pain his less short of breath, he continues to emboly very carefully, his appetite is okay, he has no diarrhea, he has no pleurisy, he has no hemoptysis, the swelling in both lower extremities are better, we'll continue with supportive care, patient is complaining of increased constipation stool softener along with MiraLAX will be added. 03/03: Patient sitting up in bed is feeling better today, he still didn't have a bowel movement, MiraLAX will be admitted, along with the Senokot 2 tablet a day, continue activity, continue Decadron 6 mg orally once every day, continue to monitor the patient very closely, continue oxygen support with 15 L an nonrebreather as needed, patient appears to be a lot better today than he was yesterday we'll continue to monitor very closely. 03/04: Patient had a bowel movement yesterday after medications. He states his breathing is little bit better today. He's been on high flow nasal cannula 15 L an nonrebreather with pulse ox running between 91 and 95%. He has been afebrile, heart rate 109, blood pressure 124/76. Blood work this morning is pending at the time of this dictation. Patient is continued on Lovenox, dexamethasone oral and vitamin supplements. Patient is followed closely by pulmonary medicine. 03/05: Patient sitting up in the chair continued to be on nonrebreather along with 8 L, he continues to be somewhat short of breath with minimum exertion, his computed tomography scan of the chest showed evidence of pulmonary fibrosis with severe emphysema without evidence of pulmonary embolism, he continues to be on Decadron, we'll continue to follow the patient very closely. 03/06: Patient is continued on nonrebreather and 10 L high flow nasal cannula. He has been afebrile, heart rate in the low 100s, blood pressure 116/70. WBC 11 BUN 32 creatinine 0.87. Blood sugar 109. A LT 77. Patient has been stable with minimal improvement of his oxygenation and unable to wean down on oxygen therapy in order to go home. Discussed with the patient about long-term care facility and he is agreeable, we will plan for or Thursday of this week, social work is following. Is followed by pulmonary medicine. 03/07: Patient has been afebrile, heart rate 110, blood pressure 120/73 and pulse ox of 94% on high flow nasal cannula 6 L nonrebreather. Patient is sleeping in recliner weakens easily to verbal stimuli. No new concerns. Patient has been followed closely by pulmonary medicine and cleared for discharge to LTAC once arrangements are completed. Social work is following closely and trying to make arrangements for discharge today. 03/08: Patient was not discharged to LTAC they will not accept a patient with no nrebreather. In concern that he does not get good oxygenation due to deviated symptoms when using a nasal cannula device. He states that yesterday he got up to the commode chair which was right next to his chair and it took him 3 hours to recuperate. He asked whether an ENT doctor could come in and do a procedure on his nose for the deviated septum but this is not an option. He remains on a nonrebreather as well as AirVo 40 L and FiO2 of 40% with pulse ox of 94%. Heart rate 110, blood pressure 105/72. Patient's been afebrile. We will start weaning off dexamethasone. 03/09: Patient is sitting up in the recliner continues to struggle a lot with his oxygen currently on nonrebreather along with AirVo at 67%, patient was not accepted at LTAC due to the fact that he has been using the nonrebreather, patient is not able to keep his oxidation above 88% without the nonrebreather at this point, we'll discuss with pulmonary medicine, continue to use the nasal saline spray to open up his airways, patient does appear to have a significant degree of the symptom is not getting enough oxygen through his nose, we will continue to follow the patient very closely, prognosis continues to be very guarded, patient is also complaining of significant cramps in his chest wall and abdominal wall due to respiratory failure and possible hypokalemia we will order stat labs including magnesium and potassium along with a CBC as well, follow-up with the patient very closely. REVIEW OF SYSTEMS: Constitutional: Denies fever, chills, night sweats. No weight change. positive for weakness, reports fatigue no lethargy. Denies daytime sleepiness. HEENT: No headache. No nasal drainage or congestion. No epistaxis. Reports sore throat. Lungs: Continued shortness of breath with oxygen therapy slowly improving, positive for cough, positive for white sputum production. No wheezing. Reports dyspnea with minimal activity. Cardiovascular: No chest pain, no lower extremity edema. No palpitations. No paroxysmal nocturnal dyspnea. No orthopnea. No lightheadedness or dizziness. No syncopal episodes. Abdominal: denies abdominal pain. No nausea, vomiting. Denies diarrhea. No constipation. No bloody or tarry stools. Reports loss of appetite. Genitourinary: No dysuria, increased frequency, urgency. No urinary retention. Musculoskeletal: positive for myalgias. positive for generalized muscle weakness, no gait dysfunction, no frequent falls. Reports back pain. No neck pain. Integumentary: No wounds, no lesions. No rash. Neurologic: No aphasia. No facial droop. No change in mentation. No head injury. No headache. No paralysis. No paresthesia. Psychiatric: No depression. No anxiety. Endocrine: Mildly abnormal blood sugars. PHYSICAL EXAMINATION: General: 56-year-old male sitting in recliner no acute respiratory distress at rest. Patient appears to be comfortable. Patient is currently on nonrebreather and AirVo. HEENT: Head is atraumatic, normocephalic, pupils were equal round, sclera nonicteric, conjunctivae were pale. Neck: Supple, no JVP, normal carotid upstroke bilaterally, no lymphadenopathy. Chest: Decreased breath sounds at the bases, few rhonchi, no chest wall tenderness, no intercostal retractions at rest. Heart: First heart sound is normal, second heart sounds normal, there is no gallop or murmur. Abdomen: Soft, nontender, nondistended, positive bowel sounds, no hepatosplenomegaly. Extremities: There is no edema no calf tenderness DP +2 bilaterally. Neurologic examination: Patient is awake alert and oriented X 3, cranial nerves II-12 appear grossly intact, significant proximal muscle weakness in the upper and lower extremities due to possible steroid-induced myopathy. ASSESSMENT AND PLAN: 1. Acute hypoxemic respiratory failure due to bilateral patchy interstitial pneumonia due to COVID-19 pneumonia and sepsis (POA). Continue patient on Lovenox 40 mg subcu daily, Decadron 4 mg orally once every day. Continue Vitamin C 1000 mg orally once every day, zinc 220 mg once every day, vitamin D 1000 units once every day, completed course of Baricitinib, continue oxygen therapy withAirVo 67% as well as nonrebreather, continue and decrease Lasix 20 m g once every day. 2. Bilateral Covid pneumonia with ARDS and pulmonary fibrosis with severe emphy sema. Continue with Airvo oxygen plus nonrebreather, continue dexamethasone 4 mg orally every day, continue with supportive care. 3. Mild non-anion gap metabolic acidosis. Resolved. 4. Moderate protein calorie malnutrition secondary to decreased appetite and difficulty eating with oxygen mask. Continue Ensure 3 times daily. 5. Acute drug-induced hepatitis. Resolved.Repeat CMP. 6. Underlying emphysema and pulmonary fibrosis. Continue oxygen support, continue with current management. 7. History of tobacco use and dependence. Patient has quit. 8. GERD and GI prophylaxis. Continue patient on Protonix 40 mg oral twice daily. 9. Constipation. Continue Senokot 2 tablet at bedtime along with MiraLAX 17 g in 8 ounces water once every day. 10. DVT prophylaxis. Continue Lovenox 40 mg subcutaneously every 24 hours . 11. Steroid-induced myopathy with proximal muscle weakness. Patient will need to be seen in consultation by physical therapy for increased physical activity. 12. Patient is full code. 13. Guarded prognosis. DISCHARGE PLAN LTAC once patient is off NRB Objective - Vital Signs Vital signs: Vital Signs Temp 98.5 F 03/09/21 04:00 Pulse 124 H 03/09/21 08:00 Resp 18 03/09/21 08:00 BP 118/84 03/09/21 04:00 Pulse Ox 92 L 03/09/21 04:00 Intake & Output 03/08/21 03/09/21 03/09/21 18:59 06:59 18:59 Intake Total 472 480 Output Total 1250 800 Balance -778 -800 480 Weight 107.8 kg Intake: Oral 472 480 Output: Urine 1250 800 Other: Voiding Method Urinal # Voids 1 # Bowel Movements 1 - Labs CBC & Chem 7: 03/06/21 07:20 03/06/21 07:20
[2021-03-09] MEDS ORDERED: ALPRAZolam 0.25 MG TAB PO STA (10:32)
[2021-03-09] MEDS: BACLOFEN 10 MG TAB PO SCH ×2 (10:37→22:13)
[2021-03-09 12:10] LABS: Basophils % (A) 0 %; Eosinophils # (A) 0.1 k/uL (0-0.7); Eosinophils % (A) 1 %; HCT 41.1 % (39.0-53.0); HGB 13.7 gm/dL (13.0-17.5); Lymphocytes # (A) 1.2 k/uL (1.0-4.8); Lymphocytes % (A) 9 %; MCH 32.4 pg (25.0-35.0); MCHC 33.3 g/dL (31.0-37.0); MCV 97.3 fL (80.0-100.0); Mean Platelet Volume 7.5; Monocytes # (A) 0.7 k/uL (0-1.0); Monocytes % (A) 6 %; Neutrophils # (A) 10.5 k/uL (1.3-7.7); Neutrophils % (A) 83 %; Platelet Count 382 k/uL (150-450); RBC 4.23 m/uL (4.30-5.90); RDW 15.4 % (11.5-15.5); WBC 12.6 k/uL (3.8-10.6)
[2021-03-09 12:20] LABS: ALT 58 U/L (4-49); AST 26 U/L (17-59); African American GFR (CKD) >90 (>60 ml/min/1.73 sqM); Albumin 3.8 g/dL (3.5-5.0); Alkaline Phosphatase 80 U/L (38-126); Anion Gap 9 mmol/L; Blood Urea Nitrogen 38 mg/dL (9-20); Calcium 9.7 mg/dL (8.4-10.2); Carbon Dioxide 30 mmol/L (22-30); Chloride 96 mmol/L (98-107); Glucose 85 mg/dL (74-99); Non-African American GFR(CKD) >90 (>60 ml/min/1.73 sqM); Potassium 4.3 mmol/L (3.5-5.1); Sodium 135 mmol/L (137-145); Total Bilirubin 0.6 mg/dL (0.2-1.3); Total Protein 6.4 g/dL (6.3-8.2)
[2021-03-09] MEDS: ALPRAZolam 0.25 MG TAB PO SCH (22:12)
[2021-03-09] MEDS: ZOLPIDEM 5 MG TAB PO SCH (22:13)
[2021-03-10] MEDS: PANTOPRAZOLE 40 MG TABLET PO SCH ×2 (06:23→16:13)
--- NOTE | 2021-03-10 07:22 | XR ---
EXAMINATION TYPE: XR chest 1V DATE OF EXAM: 03/10/2021 6:40 AM COMPARISON:Chest radiographs from 02/27/2021 CLINICAL INDICATION:Male, 56 years old with history of COVID-19 Pulmonary Fibrosis; TECHNIQUE: Portable AP radiograph of the chest.. FINDINGS: Lungs/Pleura: Similar multifocal airspace opacities superimposed on chronic interstitial lung changes . No evidence of pneumothorax or pleural effusion. Pulmonary vascularity: Unremarkable. Heart/mediastinum: Cardiomediastinal silhouette is unremarkable. Musculoskeletal: No acute osseous pathology. IMPRESSION: Similar multifocal opacities superimposed on chronic interstitial lung changes as seen on 02/27/2021.
[2021-03-10] MEDS: SENNOSIDES-DOCUSATE SODIUM 1 EACH TAB PO SCH ×2 (08:47→22:06)
[2021-03-10] MEDS: MULTIVITAMINS, THERA 1 EACH TAB PO SCH (08:47)
[2021-03-10] MEDS: guaiFENesin 600 MG TABLET.ER PO SCH ×2 (08:47→22:06)
[2021-03-10] MEDS: POTASSIUM CHLORIDE ER 20 MEQ TAB.ER PO SCH (08:47)
[2021-03-10] MEDS: ASCORBIC ACID 500 MG TAB PO SCH (08:47)
[2021-03-10] MEDS: CHOLECALCIFEROL 25 MCG (1000 IU) TABLET PO SCH (08:47)
[2021-03-10] MEDS: BACLOFEN 10 MG TAB PO SCH ×3 (08:47→22:07)
[2021-03-10] MEDS: dexAMETHasone 4 MG TAB PO SCH (08:48)
[2021-03-10] MEDS: ENOXAPARIN 40 MG/0.4 ML SYRINGE SQ SCH (08:48)
[2021-03-10] MEDS: FUROSEMIDE 20 MG TAB PO SCH (08:48)
[2021-03-10] MEDS: ZINC SULFATE 220 MG CAP PO SCH (08:48)
[2021-03-10] MEDS: ALPRAZolam 0.25 MG TAB PO SCH ×2 (08:48→22:06)
[2021-03-10] MEDS: polyethylene glycoL 3350 17 GM POWD.PACK PO SCH (08:48)
--- NOTE | 2021-03-10 11:52 | P.PN ---
Subjective Progress Note Date: 03/10/21 Progress Note Date: 03/10/21 HISTORY OF PRESENT ILLNESS: This is a 56-year-old male with a past medical history significant for hypertension and hypertensive cardiovascular disease, hyperlipidemia, history of tobacco use and dependence, presented to the emergency department at [facility] with increased coughing and increased shortness breath that started last and has been getting worse over the last few days, yesterday he w as extremely short of breath and his oxygen saturation was in the low 70s, his tried to get him to the ER but eventually called 911 and the patient was brought into the ER at [facility] where he had a chest x-ray that did show evidence of bilateral patchy infiltrate suggestive of Covid pneumonia, his COVID-19 PCR was positive, patient was started on nonrebreather, and later on was seen in consultation by pulmonary medicine and he was placed on Airvo and was started on Bacitinib 4 mg po daily and the patient was admitted to the hospital for further evaluation and treatment. 02/05: A shunt is currently on AirVol. He has complained of feeling tired and complaining of gastric reflux. Protonix will be increased to 40 mg IV push twice daily. Patient is been seen by pulmonary medicine and started on Baricitinib, continued on dexamethasone 6 mg twice daily, Lovenox 40 mg daily. He has been afebrile, heart rate 92, blood pressure 137/86, pulse ox 97%. Repeat blood work reveals WBC 2.2, d-dimer 3.33, blood sugar 143. LDH 735, C- reactive protein 15.5. Chest x-ray reveals chronic emphysematous and pulmonary fibrotic changes with bilateral multifocal reticular nodular opacities consistent with COVID-19. Perhaps slight improvement in the right lung base. Ultrasound of bilateral lower extremities negative for DVT. 02/06: Last evening, patient was transferred into the intensive care unit as he was on 15 L nonrebreather was transitioned over to AirVo 60 L 90% with nonr ebreather on top. Pulse ox is currently running 84-87%. He has been afebrile, heart rate in the 80s and 90s, respiratory rate 29, blood pressure 131/82. Patient is requesting Cepacol lozenges and nasal spray added. Ensure 3 times daily also added, patient has decreased appetite and limited oral intake. Repeat blood work reveals WBC 4.9, hemoglobin 13.6. Platelet count 381. D- dimer 2.15. LDH 1685. C-reactive protein 5.6. Repeat chest x-ray revealed continue his Covid infiltrate superimposed on bollous emphysema. Slight improvement in aeration in the right upper lobe. Patient is continued on dexamethasone, Lovenox, vitamin supplements and Baricitinib. 02/07:patient remains in the intensive care unit. He is on nonrebreather mask as well as high flow AirVo with O2 at 60 L, FiO2 90%. patient remains afebrile, heart rate in the 70s, respiratory rate 26, blood pressure 127/79, pulse ox 86- 88%, pulse ox drops in the low 80s when patient ate's. He is on ensure 3 times daily. Patient is complaining of some cough and back pain when he coughs. He is less fatigued today. 02/08: Patient remains in intensive care unit currently on nonrebreather, as well as a high flow airflow oxygen still borderline at 89%, patient is eating his protein, hysterectomy 8 his breakfast, he has no chest pain at this time he continues to be extreme short of breath, he has no abdominal pain, he had lost some of the states, he has no headache, he has no hemoptysis, he has no pleurisy, he has no edema. 02/09: Patient sitting up in a chair his feeling a bit better. He continues to be on nonrebreather along with airflow 60 L, he denies any chest pain, his continues to be somewhat short of breath, he continues to struggle with breathing, has no abdominal pain, he had a good bowel movement yesterday, he is tolerating his food, patient is stable at this point in time, he will stay in the intensive care unit due to his oxygen requirement, chest x-ray showed bilateral diffuse infiltrate suggestive of Covid pneumonia, he continues to be on Decadron 6 mg orally twice every day, we'll continue conservative management continue supportive care continue Baricitinib daily for a total of 14 doses today is 08/10 02/10: Patient is feeling better today he continues to be on airVO and NRB, continues to require a lot of oxygen, sitting up and eating his breakfast, he has no chest pain, no pleurisy, he does competitive achiness in the back of his legs, he is current;y on Baricitinib Day #6 out of 14. 02/11: Patient is seen today in the ICU. He is on AirVo had 90% 60 L and nonrebreather is used as needed. Patient is more mobile in his room. He has been afebrile, heart rate 81 and 96, blood pressure 127/72 area pulse ox 87-95%. Repeat blood work reveals WBC 15.5. Electrolytes normal. BUN 27 creatinine 0.84. Blood sugar 145. Liver function tests were normal. Patient is on regular diet and protein supplements. He is continued on Baricitinib, oral dexamethasone, Lovenox and supplements. 02/12: Patient remains in intensive care unit. He is on AirVo plus nonrebreather but he is keeping NRB in place except for oral intake. He has been afebrile, heart rate 89, respiratory rate 23-30, blood pressure 132/75, pulse ox 90%. CTA of the chest showed no pulmonary embolism. Small pericardial effusion. Extensive emphysematous changes and/or pulmonary fibrosis. Patient is on regular diet and protein supplements. No vomiting or diarrhea. WBC 14.2. Creatinine 0.76. Blood sugar 142. ALT 71. 02/13: Patient is currently on AirVo and nonrebreather with pulse ox 82-96%. He has been afebrile, heart rate in the 90s, respiratory rate 19-36. Blood pressure 132/84. WBC 17.9. Sodium 134. Blood sugar 125. Patient is continued on supplements, Baricitinib, dexamethasone and Lovenox. 02/14: Patient remains in the intensive care unit on airvo and nonrebreather. He states he was up in a chair for a little while yesterday. He still has coughing, no fever or chills. He is taking protein supplement. Patient has been afebrile, heart rate 97, blood pressure 139/88, respiratory rate 24, pulse ox 92%. WBC 17.6. Sodium 131. Patient is continued on supplements, Baricitini b, dexamethasone and Lovenox. 02/15: Patient remains in the intensive care unit on AirVo and nonrebreather with pulse ox of 94%. Patient's been afebrile, heart rate 86, respiratory rate 22, blood pressure 120/75. Review blood work reveals WBC 21. AST 82, ALT 229. Sodium 131, potassium 4.8, creatinine 0.88. Patient is complaining of oral pain, grinding his teeth. Patient is continued on supplements, Baricitinib, dexamethasone and Lovenox. 02/16: Patient moved out of the ICU, his currently in the telemetry unit, his monitor showing sinus tachycardia with PACs, he continues to be on airVo and nonrebreather his oxygen is about 93%, it does drop to 88-89% with activity and exertion, he continues to be generally weak, he has no chest pain at this time, he has no pleurisy, there is no hemoptysis, he has no abdominal pain, nausea or vomiting, he seems to be tolerating her treatment very well. 02/17: Patient is about the same he continues to be in a telemetry unit, he continues to have sinus tachycardia, he continues to be on same oxygen he continues to be about the same, he is currently maintained on Decadron as well as Baricitinib for a total of 14 doses, we will continue to monitor his liver function tests, and as he continues to have transaminitis., Patient denies any chest pain at this time he has no abdominal pain, nausea vomiting or diarrhea. 02/18: Patient is seen sitting up in a chair today. He is on AirVO nonrebreather with pulse ox 92%. His been afebrile, heart rate 112, blood pressure 128/73. Patient is currently on dexamethasone, Lovenox and vitamin supplements. He has completed his course of Baricitinib. Repeat blood work reveals WBC 31.2, hemoglobin 15, platelet count 601. Sodium 131, potassium 4.7, chloride 97, CO2 25, BUN 32 creatinine 0.8. Blood sugars are running between 117 and 130s. AST is 198, ALT 875. Alkaline phosphatase 82. 02/19: Patient is currently on AirVo only with pulse ox of 8792%. He has been afebrile, heart rate 107, blood pressure 114/77. Have any nausea vomiting, no diarrhea. He states he is feeling better from yesterday. No repeat chest x-ray is scheduled for today. Repeat blood work will be ordered for tomorrow. Patient is been monitored closely and followed by the pulmonary service since admission. Currently he is on 60 L oxygen via high flow nasal cannula with FiO2 of 68%. Slightly tachypneic and got short of breath when he talks. Labs reviewed WBC 23k, d-dimer 0.75, sodium slightly low 129, potassium slightly high at 5.3, liver enzymes slightly elevated, lactate dehydrogenase is elevated 1114. Poorcalcitonin is 0.19, was 0.08. Chest x-ray showing COPD with patchy bilateral Covid pneumonia. Patient currently kept on dexamethasone 6 mg daily, vitamin C, vitamin D and zinc. Also he is on Pepcid and Lovenox. 02/22/2021 Patient reports some improvement in his shortness of breath. Today following a T-max trying to wean him down with lowering oxygen requirement 60 down to 40 L per minute with FiO2 68 down to 50% this morning. Patient is to cardiac and more tachypneic during these attempts for now, we will keep monitoring. However he does not report any worsening dyspnea. Sodium improved to 134, potassium down to 5.0. He remains on dexamethasone and multiple vitamins. Also he is on Lovenox and Pepcid We will keep monitoring 02/23/2021 Patient today show significant improvement with drop of oxygen requirement down to 15 L/m, patient reports more easier breathing. No much coughing. WBC 20 2K, d-dimer is stable at 0.7. Potassium normal at 4.3. Lactate dehydrogenase still elevated but stable at 1023. Patient remains on the same treatment of dexamethasone, multiple vitamins, Lovenox and Pepcid 02/24/2021 Patient awake and alert, he feels generally weak, significantly dyspneic while talking. Looks more tired and lethargic. Patient is hypoxic requiring 15 L/m nonrebreather and interval of 40 L at 50%, he is tachypneic and tachycardic. Heart rate around 119. Chest x-ray: Chronic parenchymal changes with left mid lung and bibasilar opacities consistent with known covid 19 infection. No significant change. Patient remains on vitamin C, D and zinc, dexamethasone, Lovenox and Pepcid 02/25: Patient is on nonrebreather and AirVo pulse ox of 91%. He's been afebril e, heart rate 118, blood pressure 1 3472. Patient complains of feeling tired. Repeat chest x-ray ordered, Lasix at 40 mg IV every 12 hours, Mucinex ordered. WBC 20.1. Magnesium 2.5. LDH 1039, C-reactive protein 4.3, pro-calcitonin 0.16. Patient is continued on dexamethasone, Lovenox and vitamin supplements. 02/26: Pulse ox is running 89 and 99% with nonrebreather at 15 L and high flow nasal cannula at 15 L. He remains afebrile, heart rate 113, respiratory rate 24, blood pressure 117/72. No repeat blood work today. Patient states he slept well last night but he was having cramps yesterday most likely from diuresing. He did have 3000 ml urine out and Lasix decreased to once daily. Patient has less lower extremity edema and lower extremity ultrasound bilaterally ordered. Patient was complaining of back discomfort for which baclofen will be ordered. Repeat blood work and chest x-ray for tomorrow. Chest x-ray from yesterday reveals coarse basilar infiltrates unchanged from prior study. 02/27: Patient is now on 15 L nonrebreather, off AirVo.. His pulse ox is 95%. He's been afebrile, heart rate 114, respiratory rate 25, blood pressure 130/84. Patient has decreased lower extremity edema will be continued on Lasix 40 mg IV daily. He had a repeat Covid test done yesterday which was positive. Repeat chest x-ray reveals diffuse bilateral lung infiltrates stable. Venous Doppler bilateral lower extremity negative for DVT. 02/28: Patient is seen in follow-up today. He is resting and recliner. He has been afebrile, heart rate 110, blood pressure 122/72, respiratory rate 18-24, pulse ox 97% on high flow nasal cannula and AirVo. Repeat blood work reveals sodium 134, potassium 5.0, chloride 98, CO2 29, BUN 37 creatinine 0.86. Blood sugar 131. Patient is continued on vitamin supplements, dexamethasone, Lovenox. 03/01: The patient is now on nonrebreather only at 15 L with pulse ox of 95%. His been afebrile, heart rate 113, blood pressure 147/75. engine monitor is a sinus rhythm. Patient's breathing status overall is improving but he still has significant shortness of breath with minimal activity. Patient continues to have cough with mild sputum production. We'll plan to remove Cheek catheter tomorrow morning. Cheek catheter was placed as patient was de-satting when he tried to stand to urinate. Urinalysis was also be obtained at that time. 03/02: Patient continues to feel a bit better, he is currently on 15 L along with an nonrebreather, he denies any chest pain his less short of breath, he continues to emboly very carefully, his appetite is okay, he has no diarrhea, he has no pleurisy, he has no hemoptysis, the swelling in both lower extremities are better, we'll continue with supportive care, patient is complaining of increased constipation stool softener along with MiraLAX will be added. 03/03: Patient sitting up in bed is feeling better today, he still didn't have a bowel movement, MiraLAX will be admitted, along with the Senokot 2 tablet a day, continue activity, continue Decadron 6 mg orally once every day, continue to monitor the patient very closely, continue oxygen support with 15 L an nonrebreather as needed, patient appears to be a lot better today than he was yesterday we'll continue to monitor very closely. 03/04: Patient had a bowel movement yesterday after medications. He states his breathing is little bit better today. He's been on high flow nasal cannula 15 L an nonrebreather with pulse ox running between 91 and 95%. He has been afebrile, heart rate 109, blood pressure 124/76. Blood work this morning is pending at the time of this dictation. Patient is continued on Lovenox, dexamethasone oral and vitamin supplements. Patient is followed closely by pulmonary medicine. 03/05: Patient sitting up in the chair continued to be on nonrebreather along with 8 L, he continues to be somewhat short of breath with minimum exertion, his computed tomography scan of the chest showed evidence of pulmonary fibrosis with severe emphysema without evidence of pulmonary embolism, he continues to be on Decadron, we'll continue to follow the patient very closely. 03/06: Patient is continued on nonrebreather and 10 L high flow nasal cannula. He has been afebrile, heart rate in the low 100s, blood pressure 116/70. WBC 11 BUN 32 creatinine 0.87. Blood sugar 109. A LT 77. Patient has been stable with minimal improvement of his oxygenation and unable to wean down on oxygen therapy in order to go home. Discussed with the patient about long-term care facility and he is agreeable, we will plan for or Thursday of this week, social work is following. Is followed by pulmonary medicine. 03/07: Patient has been afebrile, heart rate 110, blood pressure 120/73 and pulse ox of 94% on high flow nasal cannula 6 L nonrebreather. Patient is sleeping in recliner weakens easily to verbal stimuli. No new concerns. Patient has been followed closely by pulmonary medicine and cleared for discharge to LTAC once arrangements are completed. Social work is following closely and trying to make arrangements for discharge today. 03/08: Patient was not discharged to LTAC they will not accept a patient with no nrebreather. In concern that he does not get good oxygenation due to deviated symptoms when using a nasal cannula device. He states that yesterday he got up to the commode chair which was right next to his chair and it took him 3 hours to recuperate. He asked whether an ENT doctor could come in and do a procedure on his nose for the deviated septum but this is not an option. He remains on a nonrebreather as well as AirVo 40 L and FiO2 of 40% with pulse ox of 94%. Heart rate 110, blood pressure 105/72. Patient's been afebrile. We will start weaning off dexamethasone. 03/09: Patient is sitting up in the recliner continues to struggle a lot with his oxygen currently on nonrebreather along with AirVo at 67%, patient was not accepted at LTAC due to the fact that he has been using the nonrebreather, patient is not able to keep his oxidation above 88% without the nonrebreather at this point, we'll discuss with pulmonary medicine, continue to use the nasal saline spray to open up his airways, patient does appear to have a significant degree of the symptom is not getting enough oxygen through his nose, we will continue to follow the patient very closely, prognosis continues to be very guarded, patient is also complaining of significant cramps in his chest wall and abdominal wall due to respiratory failure and possible hypokalemia we will order stat labs including magnesium and potassium along with a CBC as well, follow-up with the patient very closely. 03/10: Patient is sitting up in the recliner he is feeling better is currently on AirVo 67% no NRB continue to try to wean his oxygen saturation down in order for him to be accepted at LTAC patient denies any chest pain at this time he continues to be actually be short of breath, he is being followed by pulmonary medicine, continue supportive care continue to do so done due to steroid-induced myopathy continue physical therapy evaluation. REVIEW OF SYSTEMS: Constitutional: Denies fever, chills, night sweats. No weight change. positive for weakness, reports fatigue no lethargy. Denies daytime sleepiness. HEENT: No headache. No nasal drainage or congestion. No epistaxis. Reports sore throat. Lungs: Continued shortness of breath with oxygen therapy slowly improving, positive for cough, positive for white sputum production. No wheezing. Reports dyspnea with minimal activity. Cardiovascular: No chest pain, no lower extremity edema. No palpitations. No paroxysmal nocturnal dyspnea. No orthopnea. No lightheadedness or dizziness. No syncopal episodes. Abdominal: denies abdominal pain. No nausea, vomiting. Denies diarrhea. No constipation. No bloody or tarry stools. Reports loss of appetite. Genitourinary: No dysuria, increased frequency, urgency. No urinary retention. Musculoskeletal: positive for myalgias. positive for generalized muscle weakness, no gait dysfunction, no frequent falls. Reports back pain. No neck pain. Integumentary: No wounds, no lesions. No rash. Neurologic: No aphasia. No facial droop. No change in mentation. No head injury. No headache. No paralysis. No paresthesia. Psychiatric: No depression. No anxiety. Endocrine: Mildly abnormal blood sugars. PHYSICAL EXAMINATION: General: 56-year-old male sitting in recliner no acute respiratory distress at rest. Patient appears to be comfortable. Patient is currently on nonrebreather and AirVo. HEENT: Head is atraumatic, normocephalic, pupils were equal round, sclera nonicteric, conjunctivae were pale. Neck: Supple, no JVP, normal carotid upstroke bilaterally, no lymphadenopathy. Chest: Decreased breath sounds at the bases, few rhonchi, no chest wall tenderness, no intercostal retractions at rest. Heart: First heart sound is normal, second heart sounds normal, there is no gallop or murmur. Abdomen: Soft, nontender, nondistended, positive bowel sounds, no hepatosplenomegaly. Extremities: There is no edema no calf tenderness DP +2 bilaterally. Neurologic examination: Patient is awake alert and oriented X 3, cranial nerves II-12 appear grossly intact, significant proximal muscle weakness in the upper and lower extremities due to possible steroid-induced myopathy. ASSESSMENT AND PLAN: 1. Acute hypoxemic respiratory failure due to bilateral patchy interstitial pneumonia due to COVID-19 pneumonia and sepsis (POA). Continue patient on Lovenox 40 mg subcu daily, Decadron 4 mg orally once every day. Continue Vitamin C 1000 mg orally once every day, zinc 220 mg once every day, vitamin D 1000 units once every day, completed course of Baricitinib, continue oxygen therapy withAirVo 67% continue and decrease Lasix 20 mg once every day. 2. Bilateral Covid pneumonia with ARDS and pulmonary fibrosis with severe emphysema. Continue with Airvo oxygen plus nonrebreather, continue dexamethasone 4 mg orally every day, continue with supportive care. 3. Mild non-anion gap metabolic acidosis. Resolved. 4. Moderate protein calorie malnutrition secondary to decreased appetite and difficulty eating with oxygen mask. Continue Ensure 3 times daily. 5. Acute drug-induced hepatitis. Resolved.Repeat CMP. 6. Underlying emphysema and pulmonary fibrosis. Continue oxygen support, continue with current management. 7. History of tobacco use and dependence. Patient has quit. 8. GERD and GI prophylaxis. Continue patient on Protonix 40 mg oral twice daily. 9. Constipation. Continue Senokot 2 tablet at bedtime along with MiraLAX 17 g in 8 ounces water once every day. 10. DVT prophylaxis. Continue Lovenox 40 mg subcutaneously every 24 hours . 11. Steroid-induced myopathy with proximal muscle weakness. Patient will need to be seen in consultation by physical therapy for increased physical activity. 12. Patient is full code. 13. Guarded prognosis. DISCHARGE PLAN LTAC once patient is off NRB Objective - Vital Signs Vital signs: Vital Signs Temp 98.1 F 03/10/21 08:00 Pulse 116 H 03/10/21 08:00 Resp 18 03/10/21 08:00 BP 139/78 03/10/21 08:00 Pulse Ox 92 L 03/10/21 04:00 Intake & Output 03/09/21 03/10/21 03/10/21 18:59 06:59 18:59 Intake Total 960 Output Total 1200 500 Balance -240 -500 Weight 107.8 kg Intake: Oral 960 Output: Urine 1200 500 Other: Voiding Method Urinal # Bowel Movements 1 - Labs CBC & Chem 7: 03/09/21 11:37 12 11:37 Labs: Abnormal Lab Results - Last 24 Hours (Table) 03/09/21 03/09/21 Range/Units 11:37 11:37 WBC 12.6 H (3.8-10.6) k/uL RBC 4.23 L (4.30-5.90) m/uL Neutrophils # 10.5 H (1.3-7.7) k/uL Sodium 135 L (137-145) mmol/L Chloride 96 L (98-107) mmol/L BUN 38 H (9-20) mg/dL ALT 58 H (4-49) U/L
[2021-03-10] MEDS: ZOLPIDEM 5 MG TAB PO SCH (22:06)
[2021-03-11] MEDS: PANTOPRAZOLE 40 MG TABLET PO SCH ×2 (06:15→17:24)
--- NOTE | 2021-03-11 07:46 | P.DS ---
Providers Date of admission: 02/04/21 11:55 Expected date of discharge: 03/13/21 Attending physician: Monisha Alford Consults: 02/04/21 11:55 Consult Physician Stat Consulting Provider: Moustapha Robins Consult Reason/Comments: COVID pneumonia Do you want consulting provider notified?: Already Contacted Primary care physician: Monisha Alford [facility] Course: HISTORY OF PRESENT ILLNESS: This is a 56-year-old male with a past medical history significant for hypertension and hypertensive cardiovascular disease, hyperlipidemia, history of tobacco use and dependence, presented to the emergency department at [facility] with increased coughing and increased shortness breath that started last and has been getting worse over the last few days, yesterday he was extremely short of breath and his oxygen saturation was in the low 70s, his tried to get him to the ER but eventually called 911 and the patient was brought into the ER at [facility] where he had a chest x-ray that did show evidence of bilateral patchy infiltrate suggestive of Covid pneumonia, his COVID-19 PCR was positive, patient was started on nonrebreather, and later on was seen in consultation by pulmonary medicine and he was placed on Airvo and was started on Bacitinib 4 mg po daily and the patient was admitted to the hospital for further evaluation and treatment. 02/05: A shunt is currently on AirVol. He has complained of feeling tired and complaining of gastric reflux. Protonix will be increased to 40 mg IV push twice daily. Patient is been seen by pulmonary medicine and started on Baricitinib, continued on dexamethasone 6 mg twice daily, Lovenox 40 mg daily. He has been afebrile, heart rate 92, blood pressure 137/86, pulse ox 97%. Repeat blood work reveals WBC 2.2, d-dimer 3.33, blood sugar 143. LDH 735, C- reactive protein 15.5. Chest x-ray reveals chronic emphysematous and pulmonary fibrotic changes with bilateral multifocal reticular nodular opacities consistent with COVID-19. Perhaps slight improvement in the right lung base. Ultrasound of bilateral lower extremities negative for DVT. 02/06: Last evening, patient was transferred into the intensive care unit as he was on 15 L nonrebreather was transitioned over to AirVo 60 L 90% with nonrebreather on top. Pulse ox is currently running 84-87%. He has been afeb rile, heart rate in the 80s and 90s, respiratory rate 29, blood pressure 131/82. Patient is requesting Cepacol lozenges and nasal spray added. Ensure 3 times daily also added, patient has decreased appetite and limited oral intake. Repeat blood work reveals WBC 4.9, hemoglobin 13.6. Platelet count 381. D- dimer 2.15. LDH 1685. C-reactive protein 5.6. Repeat chest x-ray revealed continue his Covid infiltrate superimposed on bollous emphysema. Slight improvement in aeration in the right upper lobe. Patient is continued on dexamethasone, Lovenox, vitamin supplements and Baricitinib. 02/07:patient remains in the intensive care unit. He is on nonrebreather mask as well as high flow AirVo with O2 at 60 L, FiO2 90%. patient remains afebrile, heart rate in the 70s, respiratory rate 26, blood pressure 127/79, pulse ox 86- 88%, pulse ox drops in the low 80s when patient ate's. He is on ensure 3 times daily. Patient is complaining of some cough and back pain when he coughs. He is less fatigued today. 02/08: Patient remains in intensive care unit currently on nonrebreather, as well as a high flow airflow oxygen still borderline at 89%, patient is eating his protein, hysterectomy 8 his breakfast, he has no chest pain at this time he continues to be extreme short of breath, he has no abdominal pain, he had lost some of the states, he has no headache, he has no hemoptysis, he has no pleurisy, he has no edema. 02/09: Patient sitting up in a chair his feeling a bit better. He continues to be on nonrebreather along with airflow 60 L, he denies any chest pain, his continues to be somewhat short of breath, he continues to struggle with breathing, has no abdominal pain, he had a good bowel movement yesterday, he is tolerating his food, patient is stable at this point in time, he will stay in the intensive care unit due to his oxygen requirement, chest x-ray showed bilateral diffuse infiltrate suggestive of Covid pneumonia, he continues to be on Decadron 6 mg orally twice every day, we'll continue conservative management continue supportive care continue Baricitinib daily for a total of 14 doses today is 08/10 02/10: Patient is feeling better today he continues to be on airVO and NRB, continues to require a lot of oxygen, sitting up and eating his breakfast, he has no chest pain, no pleurisy, he does competitive achiness in the back of his legs, he is current;y on Baricitinib Day #6 out of 14. 02/11: Patient is seen today in the ICU. He is on AirVo had 90% 60 L and nonrebreather is used as needed. Patient is more mobile in his room. He has been afebrile, heart rate 81 and 96, blood pressure 127/72 area pulse ox 87-95%. Repeat blood work reveals WBC 15.5. Electrolytes normal. BUN 27 creatinine 0.84. Blood sugar 145. Liver function tests were normal. Patient is on regular diet and protein supplements. He is continued on Baricitinib, oral dexamethasone, Lovenox and supplements. 02/12: Patient remains in intensive care unit. He is on AirVo plus nonrebreather but he is keeping NRB in place except for oral intake. He has been afebrile, heart rate 89, respiratory rate 23-30, blood pressure 132/75, pulse ox 90%. CTA of the chest showed no pulmonary embolism. Small pericardial effusion. Extensive emphysematous changes and/or pulmonary fibrosis. Patient is on regular diet and protein supplements. No vomiting or diarrhea. WBC 14.2. Creatinine 0.76. Blood sugar 142. ALT 71. 02/13: Patient is currently on AirVo and nonrebreather with pulse ox 82-96%. He has been afebrile, heart rate in the 90s, respiratory rate 19-36. Blood pr essure 132/84. WBC 17.9. Sodium 134. Blood sugar 125. Patient is continued on supplements, Baricitinib, dexamethasone and Lovenox. 02/14: Patient remains in the intensive care unit on airvo and nonrebreather. He states he was up in a chair for a little while yesterday. He still has coughing, no fever or chills. He is taking protein supplement. Patient has been afebrile, heart rate 97, blood pressure 139/88, respiratory rate 24, pulse ox 92%. WBC 17.6. Sodium 131. Patient is continued on supplements, Baricitinib, dexamethasone and Lovenox. 02/15: Patient remains in the intensive care unit on AirVo and nonrebreather with pulse ox of 94%. Patient's been afebrile, heart rate 86, respiratory rate 22, blood pressure 120/75. Review blood work reveals WBC 21. AST 82, ALT 229. Sodium 131, potassium 4.8, creatinine 0.88. Patient is complaining of oral pain, grinding his teeth. Patient is continued on supplements, Baricitinib, dexamethasone and Lovenox. 02/16: Patient moved out of the ICU, his currently in the telemetry unit, his monitor showing sinus tachycardia with PACs, he continues to be on airVo and nonrebreather his oxygen is about 93%, it does drop to 88-89% with activity and exertion, he continues to be generally weak, he has no chest pain at this time, he has no pleurisy, there is no hemoptysis, he has no abdominal pain, nausea or vomiting, he seems to be tolerating her treatment very well. 02/17: Patient is about the same he continues to be in a telemetry unit, he continues to have sinus tachycardia, he continues to be on same oxygen he continues to be about the same, he is currently maintained on Decadron as well as Baricitinib for a total of 14 doses, we will continue to monitor his liver function tests, and as he continues to have transaminitis., Patient denies any chest pain at this time he has no abdominal pain, nausea vomiting or diarrhea. 02/18: Patient is seen sitting up in a chair today. He is on AirVO nonrebreather with pulse ox 92%. His been afebrile, heart rate 112, blood pressure 128/73. Patient is currently on dexamethasone, Lovenox and vitamin supplements. He has completed his course of Baricitinib. Repeat blood work reveals WBC 31.2, hemoglobin 15, platelet count 601. Sodium 131, potassium 4.7, chloride 97, CO2 25, BUN 32 creatinine 0.8. Blood sugars are running between 117 and 130s. AST is 198, ALT 875. Alkaline phosphatase 82. 02/19: Patient is currently on AirVo only with pulse ox of 8792%. He has been afebrile, heart rate 107, blood pressure 114/77. Have any nausea vomiting, no diarrhea. He states he is feeling better from yesterday. No repeat chest x-ray is scheduled for today. Repeat blood work will be ordered for tomorrow. Patient is been monitored closely and followed by the pulmonary service since admission. Currently he is on 60 L oxygen via high flow nasal cannula with FiO2 of 68%. Slightly tachypneic and got short of breath when he talks. Labs reviewed WBC 23k, d-dimer 0.75, sodium slightly low 129, potassium slightly high at 5.3, liver enzymes slightly elevated, lactate dehydrogenase is elevated 1114. Poorcalcitonin is 0.19, was 0.08. Chest x-ray showing COPD with patchy bilateral Covid pneumonia. Patient currently kept on dexamethasone 6 mg daily, vitamin C, vitamin D and zinc. Also he is on Pepcid and Lovenox. 02/22/2021 Patient reports some improvement in his shortness of breath. Today following a T-max trying to wean him down with lowering oxygen requirement 60 down to 40 L per minute with FiO2 68 down to 50% this morning. Patient is to cardiac and more tachypneic during these attempts for now, we will keep monitoring. However he does not report any worsening dyspnea. Sodium improved to 134, potassium down to 5.0. He remains on dexamethasone and multiple vitamins. Also he is on Lovenox and Pepcid We will keep monitoring 02/23/2021 Patient today show significant improvement with drop of oxygen requirement down to 15 L/m, patient reports more easier breathing. No much coughing. WBC 20 2K, d-dimer is stable at 0.7. Potassium normal at 4.3. Lactate dehydrogenase still elevated but stable at 1023. Patient remains on the same treatment of dexamethasone, multiple vitamins, Lovenox and Pepcid 02/24/2021 Patient awake and alert, he feels generally weak, significantly dyspneic while talking. Looks more tired and lethargic. Patient is hypoxic requiring 15 L/m nonrebreather and interval of 40 L at 50%, he is tachypneic and tachycardic. Heart rate around 119. Chest x-ray: Chronic parenchymal changes with left mid lung and bibasilar opacities consistent with known covid 19 infection. No significant change. Patient remains on vitamin C, D and zinc, dexamethasone, Lovenox and Pepcid 02/25: Patient is on nonrebreather and AirVo pulse ox of 91%. He's been afebrile, heart rate 118, blood pressure 1 3472. Patient complains of feeling tired. Repeat chest x-ray ordered, Lasix at 40 mg IV every 12 hours, Mucinex ordered. WBC 20.1. Magnesium 2.5. LDH 1039, C-reactive protein 4.3, pro-calcitonin 0.16. Patient is continued on dexamethasone, Lovenox and vitamin supplements. 02/26: Pulse ox is running 89 and 99% with nonrebreather at 15 L and high flow nasal cannula at 15 L. He remains afebrile, heart rate 113, respiratory rate 24, blood pressure 117/72. No repeat blood work today. Patient states he slept well last night but he was having cramps yesterday most likely from diuresing. He did have 3000 ml urine out and Lasix decreased to once daily. Patient has less lower extremity edema and lower extremity ultrasound bilaterally ordered. Patient was complaining of back discomfort for which baclofen will be ordered. Repeat blood work and chest x-ray for tomorrow. Chest x-ray from yesterday reveals coarse basilar infiltrates unchanged from prior study. 02/27: Patient is now on 15 L nonrebreather, off AirVo.. His pulse ox is 95%. He's been afebrile, heart rate 114, respiratory rate 25, blood pressure 130/84. Patient has decreased lower extremity edema will be continued on Lasix 40 mg IV daily. He had a repeat Covid test done yesterday which was positive. Repeat chest x-ray reveals diffuse bilateral lung infiltrates stable. Venous Doppler bilateral lower extremity negative for DVT. 02/28: Patient is seen in follow-up today. He is resting and recliner. He has been afebrile, heart rate 110, blood pressure 122/72, respiratory rate 18-24, pulse ox 97% on high flow nasal cannula and AirVo. Repeat blood work reveals sodium 134, potassium 5.0, chloride 98, CO2 29, BUN 37 creatinine 0.86. Blood sugar 131. Patient is continued on vitamin supplements, dexamethasone, Lovenox. 03/01: The patient is now on nonrebreather only at 15 L with pulse ox of 95%. His been afebrile, heart rate 113, blood pressure 147/75. acute care occupational therapist is a sinus rhythm. Patient's breathing status overall is improving but he still has significant shortness of breath with minimal activity. Patient continues to have cough with mild sputum production. We'll plan to remove Cheek catheter tomorrow morning. Cheek catheter was placed as patient was de-satting when he tried to stand to urinate. Urinalysis was also be obtained at that time. 03/02: Patient continues to feel a bit better, he is currently on 15 L along with an nonrebreather, he denies any chest pain his less short of breath, he continues to emboly very carefully, his appetite is okay, he has no diarrhea, he has no pleurisy, he has no hemoptysis, the swelling in both lower extremities are better, we'll continue with supportive care, patient is complaining of increased constipation stool softener along with MiraLAX will be added. 03/03: Patient sitting up in bed is feeling better today, he still didn't have a bowel movement, MiraLAX will be admitted, along with the Senokot 2 tablet a day, continue activity, continue Decadron 6 mg orally once every day, continue to monitor the patient very closely, continue oxygen support with 15 L an nonrebreather as needed, patient appears to be a lot better today than he was yesterday we'll continue to monitor very closely. 03/04: Patient had a bowel movement yesterday after medications. He states his breathing is little bit better today. He's been on high flow nasal cannula 15 L an nonrebreather with pulse ox running between 91 and 95%. He has been afebrile, heart rate 109, blood pressure 124/76. Blood work this morning is pending at the time of this dictation. Patient is continued on Lovenox, dexamethasone oral and vitamin supplements. Patient is followed closely by pulmonary medicine. 03/05: Patient sitting up in the chair continued to be on nonrebreather along with 8 L, he continues to be somewhat short of breath with minimum exertion, his computed tomography scan of the chest showed evidence of pulmonary fibrosis with severe emphysema without evidence of pulmonary embolism, he continues to be on Decadron, we'll continue to follow the patient very closely. 03/06: Patient is continued on nonrebreather and 10 L high flow nasal cannula. He has been afebrile, heart rate in the low 100s, blood pressure 116/70. WBC 11 BUN 32 creatinine 0.87. Blood sugar 109. A LT 77. Patient has been stable with minimal improvement of his oxygenation and unable to wean down on oxygen therapy in order to go home. Discussed with the patient about long-term care facility and he is agreeable, we will plan for or Thursday of this week, social work is following. Is followed by pulmonary medicine. 03/07: Patient has been afebrile, heart rate 110, blood pressure 120/73 and pulse ox of 94% on high flow nasal cannula 6 L nonrebreather. Patient is sleeping in recliner weakens easily to verbal stimuli. No new concerns. Patient has been followed closely by pulmonary medicine and cleared for discharge to LTAC once arrangements are completed. Social work is following closely and trying to make arrangements for discharge today. 03/08: Patient was not discharged to LTAC they will not accept a patient with nonrebreather. In concern that he does not get good oxygenation due to deviated symptoms when using a nasal cannula device. He states that yesterday he got up to the commode chair which was right next to his chair and it took him 3 hours to recuperate. He asked whether an ENT doctor could come in and do a procedure on his nose for the deviated septum but this is not an option. He remains on a nonrebreather as well as AirVo 40 L and FiO2 of 40% with pulse ox of 94%. Heart rate 110, blood pressure 105/72. Patient's been afebrile. We will start weaning off dexamethasone. 03/09: Patient is sitting up in the recliner continues to struggle a lot with his oxygen currently on nonrebreather along with AirVo at 67%, patient was not accepted at LTAC due to the fact that he has been using the nonrebreather, patient is not able to keep his oxidation above 88% without the nonrebreather at this point, we'll discuss with pulmonary medicine, continue to use the nasal antolin ine spray to open up his airways, patient does appear to have a significant degree of the symptom is not getting enough oxygen through his nose, we will continue to follow the patient very closely, prognosis continues to be very guarded, patient is also complaining of significant cramps in his chest wall and abdominal wall due to respiratory failure and possible hypokalemia we will order stat labs including magnesium and potassium along with a CBC as well, follow-up with the patient very closely. 03/10: Patient is sitting up in the recliner he is feeling better is currently on AirVo 67% no NRB continue to try to wean his oxygen saturation down in order for him to be accepted at LTAC patient denies any chest pain at this time he continues to be actually be short of breath, he is being followed by pulmonary medicine, continue supportive care continue to do so done due to steroid-induced myopathy continue physical therapy evaluation. 03/11: Patient is now on AirVo only and without the nonrebreather with pulse ox of 88-90%. He's been afebrile, heart rate 115, blood pressure 144/76. At this point, it appears the patient will qualify for LTAC as he is no longer on the nonrebreather. Social work has been updated. Patient is very anxious to be moving on and looking forward to transfer. 03/12: No significant change in patient's condition. He is still on AirVo at 70% FiO2 and 55 L. We are waiting for insurance authorization for LTAC. Social work is following closely. No changes in his medications. 03/13: Patient is on high flow nasal cannula 55 L, FiO2 of 70%. Pulse ox is running 90%. No new concerns. Patient is waiting for insurance authorization to go to LTAC is obtained today. DISCHARGE DIAGNOSES 1. Acute hypoxemic respiratory failure due to bilateral patchy interstitial pneumonia due to COVID-19 pneumonia and sepsis (POA). 2. Bilateral Covid pneumonia with ARDS and pulmonary fibrosis with severe emphysema. 3. Mild non-anion gap metabolic acidosis. Resolved. 4. Moderate protein calorie malnutrition secondary to decreased appetite and difficulty eating with oxygen mask. 5. Acute drug-induced hepatitis. 6. Underlying emphysema and pulmonary fibrosis. 7. History of tobacco use and dependence. 8. GERD and GI prophylaxis. 9. Constipation. 10. DVT prophylaxis. 11. Steroid-induced myopathy with proximal muscle weakness. DISCHARGE PLAN LTAC today Impression and plan of care have been directed as dictated by the signing physician. Viridiana Baker nurse practitioner acting as scribe for signing physician. Patient Condition at Discharge: Stable Plan - Discharge Summary New Discharge Prescriptions: New Zolpidem [Ambien] 5 mg PO HS PRN #3 tab PRN Reason: Insomnia Sodium Chloride 0.65% Nasal [Deep Sea (Saline)] 2 spray NASAL QID PRN ml PRN Reason: Dry Nasal Passages Baclofen [Lioresal] 5 mg PO TID PRN tab PRN Reason: Muscle Spasm Enoxaparin [Lovenox] 40 mg SQ DAILY each polyethylene glycoL 3350 [Miralax] 17 gm PO DAILY packet ALPRAZolam [Xanax] 0.25 mg PO BID PRN #6 tab PRN Reason: Anxiety dexAMETHasone ORAL [Hexadrol] 4 mg PO DAILY #5 tab Potassium Chloride ER [K-Dur 10] 10 meq PO DAILY #30 tab Benzocaine/Menthol Lozeng [Cepacol lozenge] 1 each MUCOUS MEM Q4HR PRN lozenge PRN Reason: sore throat Sodium Chloride 0.65% Nasal [Deep Sea (Saline)] 2 spray NASAL QID PRN ml PRN Reason: Congestion guaiFENesin [Mucinex] 1,200 mg PO Q12HR tablet Pantoprazole [Protonix] 40 mg PO AC-BID tab Sennosides-Docusate Sodium [Senokot-S] 1 each PO BID tab Furosemide [Lasix] 20 mg PO DAILY tab Continue Acetaminophen Tab [Tylenol] 1,000 mg PO Q4H PRN PRN Reason: Fever Ascorbic Acid [Vitamin C] 1,000 mg PO DAILY Cholecalciferol (Vitamin D3) [Vitamin D3 (125 MCG = 5,000 IU)] 125 mcg PO DAILY Multivit-Min/FA/Lycopen/Lutein [Centrum Silver Men Tablet] 1 tab PO DAILY Zinc 50 mg PO DAILY Discontinued Ibuprofen [Motrin Ib] 800 mg PO Q4H PRN PRN Reason: Fever Discharge Medication List Acetaminophen Tab [Tylenol] 1,000 mg PO Q4H PRN 02/04/21 [History] Ascorbic Acid [Vitamin C] 1,000 mg PO DAILY 02/04/21 [History] Cholecalciferol (Vitamin D3) [Vitamin D3 (125 MCG = 5,000 IU)] 125 mcg PO DAILY 02/04/21 [History] Multivit-Min/FA/Lycopen/Lutein [Centrum Silver Men Tablet] 1 tab PO DAILY 02/04/21 [History] Zinc 50 mg PO DAILY 02/04/21 [History] ALPRAZolam [Xanax] 0.25 mg PO BID PRN #6 tab 03/07/21 [Rx] Baclofen [Lioresal] 5 mg PO TID PRN tab 03/07/21 [Rx] Benzocaine/Menthol Lozeng [Cepacol lozenge] 1 each MUCOUS MEM Q4HR PRN lozenge 03/07/21 [Rx] Enoxaparin [Lovenox] 40 mg SQ DAILY each 03/07/21 [Rx] Pantoprazole [Protonix] 40 mg PO AC-BID tab 03/07/21 [Rx] Sennosides-Docusate Sodium [Senokot-S] 1 each PO BID tab 03/07/21 [Rx] Sodium Chloride 0.65% Nasal [Deep Sea (Saline)] 2 spray NASAL QID PRN ml 03/07/21 [Rx] Sodium Chloride 0.65% Nasal [Deep Sea (Saline)] 2 spray NASAL QID PRN ml 03/07/21 [Rx] Zolpidem [Ambien] 5 mg PO HS PRN #3 tab 03/07/21 [Rx] guaiFENesin [Mucinex] 1,200 mg PO Q12HR tablet 03/07/21 [Rx] polyethylene glycoL 3350 [Miralax] 17 gm PO DAILY packet 03/07/21 [Rx] Furosemide [Lasix] 20 mg PO DAILY tab 03/11/21 [Rx] Potassium Chloride ER [K-Dur 10] 10 meq PO DAILY #30 tab 03/11/21 [Rx] dexAMETHasone ORAL [Hexadrol] 4 mg PO DAILY #5 tab 03/11/21 [Rx] Follow up Appointment(s)/Referral(s): Monisha Alford MD [Primary Care Provider] - 1 Week (AFTER DISCHARGE FROM LTAC) Discharge/Stand Alone Forms: Personal Team Leader/Research Psychologist Discharge Disposition: PATIENT OBSERVER [facility]
[2021-03-11] MEDS: ALPRAZolam 0.25 MG TAB PO SCH ×2 (08:56→21:10)
[2021-03-11] MEDS: BACLOFEN 10 MG TAB PO SCH ×3 (08:57→21:10)
[2021-03-11] MEDS: CHOLECALCIFEROL 25 MCG (1000 IU) TABLET PO SCH (08:57)
[2021-03-11] MEDS: ZINC SULFATE 220 MG CAP PO SCH (08:58)
[2021-03-11] MEDS: POTASSIUM CHLORIDE ER 20 MEQ TAB.ER PO SCH (08:58)
[2021-03-11] MEDS: FUROSEMIDE 20 MG TAB PO SCH (08:58)
[2021-03-11] MEDS: dexAMETHasone 4 MG TAB PO SCH (08:58)
[2021-03-11] MEDS: ASCORBIC ACID 500 MG TAB PO SCH (08:58)
[2021-03-11] MEDS: SENNOSIDES-DOCUSATE SODIUM 1 EACH TAB PO SCH ×2 (08:58→21:10)
[2021-03-11] MEDS: MULTIVITAMINS, THERA 1 EACH TAB PO SCH (08:58)
[2021-03-11] MEDS: ENOXAPARIN 40 MG/0.4 ML SYRINGE SQ SCH (08:59)
[2021-03-11] MEDS: guaiFENesin 600 MG TABLET.ER PO SCH ×2 (08:59→20:45)
[2021-03-11] MEDS: polyethylene glycoL 3350 17 GM POWD.PACK PO SCH (09:00)
[2021-03-11] MEDS: BENZOCAINE/MENTHOL LOZENG 1 EACH LOZENGE MUCOUS MEM PRN ×2 (11:33→21:10)
[2021-03-11 11:43] VITALS: BMI 32.1
[2021-03-11] MEDS: ZOLPIDEM 5 MG TAB PO SCH (21:10)
[2021-03-12] MEDS: BENZOCAINE/MENTHOL LOZENG 1 EACH LOZENGE MUCOUS MEM PRN ×3 (03:20→22:24)
[2021-03-12] MEDS: PANTOPRAZOLE 40 MG TABLET PO SCH ×2 (06:40→16:24)
[2021-03-12] MEDS: ALPRAZolam 0.25 MG TAB PO SCH ×2 (09:09→22:23)
[2021-03-12] MEDS: FUROSEMIDE 20 MG TAB PO SCH (09:10)
[2021-03-12] MEDS: MULTIVITAMINS, THERA 1 EACH TAB PO SCH (09:10)
[2021-03-12] MEDS: dexAMETHasone 4 MG TAB PO SCH (09:10)
[2021-03-12] MEDS: ASCORBIC ACID 500 MG TAB PO SCH (09:10)
[2021-03-12] MEDS: BACLOFEN 10 MG TAB PO SCH ×3 (09:10→22:23)
[2021-03-12] MEDS: ZINC SULFATE 220 MG CAP PO SCH (09:10)
[2021-03-12] MEDS: SENNOSIDES-DOCUSATE SODIUM 1 EACH TAB PO SCH ×2 (09:10→22:23)
[2021-03-12] MEDS: CHOLECALCIFEROL 25 MCG (1000 IU) TABLET PO SCH (09:10)
[2021-03-12] MEDS: POTASSIUM CHLORIDE ER 20 MEQ TAB.ER PO SCH (09:10)
[2021-03-12] MEDS: guaiFENesin 600 MG TABLET.ER PO SCH ×2 (09:10→22:25)
[2021-03-12] MEDS: ENOXAPARIN 40 MG/0.4 ML SYRINGE SQ SCH (09:11)
[2021-03-12] MEDS: polyethylene glycoL 3350 17 GM POWD.PACK PO SCH (09:11)
[2021-03-12] MEDS: ZOLPIDEM 5 MG TAB PO SCH (22:24)
[2021-03-13] MEDS: PANTOPRAZOLE 40 MG TABLET PO SCH (06:35)
[2021-03-13] MEDS: BENZOCAINE/MENTHOL LOZENG 1 EACH LOZENGE MUCOUS MEM PRN (06:36)
[2021-03-13] MEDS: dexAMETHasone 4 MG TAB PO SCH (10:54)
[2021-03-13] MEDS: SENNOSIDES-DOCUSATE SODIUM 1 EACH TAB PO SCH (10:54)
[2021-03-13] MEDS: CHOLECALCIFEROL 25 MCG (1000 IU) TABLET PO SCH (10:54)
[2021-03-13] MEDS: ALPRAZolam 0.25 MG TAB PO SCH (10:54)
[2021-03-13] MEDS: ASCORBIC ACID 500 MG TAB PO SCH (10:54)
[2021-03-13] MEDS: ZINC SULFATE 220 MG CAP PO SCH (10:54)
[2021-03-13] MEDS: POTASSIUM CHLORIDE ER 20 MEQ TAB.ER PO SCH (10:55)
[2021-03-13] MEDS: ENOXAPARIN 40 MG/0.4 ML SYRINGE SQ SCH (10:55)
[2021-03-13] MEDS: MULTIVITAMINS, THERA 1 EACH TAB PO SCH (10:55)
[2021-03-13] MEDS: FUROSEMIDE 20 MG TAB PO SCH (10:55)
[2021-03-13] MEDS: BACLOFEN 10 MG TAB PO SCH (10:55)
[2021-03-13] MEDS: guaiFENesin 600 MG TABLET.ER PO SCH (10:55)
[2021-03-13] MEDS: polyethylene glycoL 3350 17 GM POWD.PACK PO SCH (10:56)
[2021-03-13 11:16] VITALS: BP 123/68; PULSE 114; TEMP 98
[2021-03-13 11:21] VITALS: RESP 28
--- NOTE | 2021-03-13 13:55 | P.PN ---
Subjective Progress Note Date: 03/12/21 HISTORY OF PRESENT ILLNESS: This is a 56-year-old male with a past medical history significant for hypertension and hypertensive cardiovascular disease, hyperlipidemia, history of tobacco use and dependence, presented to the emergency department at [facility] with increased coughing and increased shortness breath that started last and has been getting worse over the last few days, yesterday he was extremely short of breath and his oxygen saturation was in the low 70s, his tried to get him to the ER but eventually called 911 and the patient was brought into the ER at [facility] where he had a chest x-ray that did show evidence of bilateral patchy infiltrate suggestive of Covid pneumonia, his COVID-19 PCR was positive, patient was started on nonrebreather, and later on was seen in consultation by pulmonary medicine and he was placed on Airvo and was started on Bacitinib 4 mg po daily and the patient was admitted to the hospital for further evaluation and treatment. 02/05: A shunt is currently on AirVol. He has complained of feeling tired and complaining of gastric reflux. Protonix will be increased to 40 mg IV push twice daily. Patient is been seen by pulmonary medicine and started on Baricitinib, continued on dexamethasone 6 mg twice daily, Lovenox 40 mg daily. He has been afebrile, heart rate 92, blood pressure 137/86, pulse ox 97%. Repeat blood work reveals WBC 2.2, d-dimer 3.33, blood sugar 143. LDH 735, C-r eactive protein 15.5. Chest x-ray reveals chronic emphysematous and pulmonary fibrotic changes with bilateral multifocal reticular nodular opacities consistent with COVID-19. Perhaps slight improvement in the right lung base. Ultrasound of bilateral lower extremities negative for DVT. 02/06: Last evening, patient was transferred into the intensive care unit as he was on 15 L nonrebreather was transitioned over to AirVo 60 L 90% with nonrebreather on top. Pulse ox is currently running 84-87%. He has been afebrile, heart rate in the 80s and 90s, respiratory rate 29, blood pressure 131/82. Patient is requesting Cepacol lozenges and nasal spray added. Ensure 3 times daily also added, patient has decreased appetite and limited oral intake. Repeat blood work reveals WBC 4.9, hemoglobin 13.6. Platelet count 381. D- dimer 2.15. LDH 1685. C-reactive protein 5.6. Repeat chest x-ray revealed continue his Covid infiltrate superimposed on bollous emphysema. Slight improvement in aeration in the right upper lobe. Patient is continued on dexamethasone, Lovenox, vitamin supplements and Baricitinib. 02/07:patient remains in the intensive care unit. He is on nonrebreather mask as well as high flow AirVo with O2 at 60 L, FiO2 90%. patient remains afebrile, heart rate in the 70s, respiratory rate 26, blood pressure 127/79, pulse ox 86- 88%, pulse ox drops in the low 80s when patient ate's. He is on ensure 3 times daily. Patient is complaining of some cough and back pain when he coughs. He is less fatigued today. 02/08: Patient remains in intensive care unit currently on nonrebreather, as well as a high flow airflow oxygen still borderline at 89%, patient is eating his protein, hysterectomy 8 his breakfast, he has no chest pain at this time he continues to be extreme short of breath, he has no abdominal pain, he had lost some of the states, he has no headache, he has no hemoptysis, he has no pleurisy, he has no edema. 02/09: Patient sitting up in a chair his feeling a bit better. He continues to be on nonrebreather along with airflow 60 L, he denies any chest pain, his continues to be somewhat short of breath, he continues to struggle with breathing, has no abdominal pain, he had a good bowel movement yesterday, he is tolerating his food, patient is stable at this point in time, he will stay in the intensive care unit due to his oxygen requirement, chest x-ray showed bilateral diffuse infiltrate suggestive of Covid pneumonia, he continues to be on Decadron 6 mg orally twice every day, we'll continue conservative management continue supportive care continue Baricitinib daily for a total of 14 doses today is 08/10 02/10: Patient is feeling better today he continues to be on airVO and NRB, continues to require a lot of oxygen, sitting up and eating his breakfast, he has no chest pain, no pleurisy, he does competitive achiness in the back of his legs, he is current;y on Baricitinib Day #6 out of 14. 02/11: Patient is seen today in the ICU. He is on AirVo had 90% 60 L and nonrebreather is used as needed. Patient is more mobile in his room. He has been afebrile, heart rate 81 and 96, blood pressure 127/72 area pulse ox 87-95%. Repeat blood work reveals WBC 15.5. Electrolytes normal. BUN 27 creatinine 0.84. Blood sugar 145. Liver function tests were normal. Patient is on regular diet and protein supplements. He is continued on Baricitinib, oral dexamethasone, Lovenox and supplements. 02/12: Patient remains in intensive care unit. He is on AirVo plus nonrebreather but he is keeping NRB in place except for oral intake. He has b een afebrile, heart rate 89, respiratory rate 23-30, blood pressure 132/75, pulse ox 90%. CTA of the chest showed no pulmonary embolism. Small pericardial effusion. Extensive emphysematous changes and/or pulmonary fibrosis. Patient is on regular diet and protein supplements. No vomiting or diarrhea. WBC 14.2. Creatinine 0.76. Blood sugar 142. ALT 71. 02/13: Patient is currently on AirVo and nonrebreather with pulse ox 82-96%. He has been afebrile, heart rate in the 90s, respiratory rate 19-36. Blood pressure 132/84. WBC 17.9. Sodium 134. Blood sugar 125. Patient is continued on supplements, Baricitinib, dexamethasone and Lovenox. 02/14: Patient remains in the intensive care unit on airvo and nonrebreather. He states he was up in a chair for a little while yesterday. He still has coughing, no fever or chills. He is taking protein supplement. Patient has been afebrile, heart rate 97, blood pressure 139/88, respiratory rate 24, pulse ox 92%. WBC 17.6. Sodium 131. Patient is continued on supplements, Baricitinib, dexamethasone and Lovenox. 02/15: Patient remains in the intensive care unit on AirVo and nonrebreather with pulse ox of 94%. Patient's been afebrile, heart rate 86, respiratory rate 22, blood pressure 120/75. Review blood work reveals WBC 21. AST 82, ALT 229. Sodium 131, potassium 4.8, creatinine 0.88. Patient is complaining of oral pain, grinding his teeth. Patient is continued on supplements, Baricitinib, dexamethasone and Lovenox. 02/16: Patient moved out of the ICU, his currently in the telemetry unit, his monitor showing sinus tachycardia with PACs, he continues to be on airVo and nonrebreather his oxygen is about 93%, it does drop to 88-89% with activity and exertion, he continues to be generally weak, he has no chest pain at this time, he has no pleurisy, there is no hemoptysis, he has no abdominal pain, nausea or vomiting, he seems to be tolerating her treatment very well. 02/17: Patient is about the same he continues to be in a telemetry unit, he continues to have sinus tachycardia, he continues to be on same oxygen he continues to be about the same, he is currently maintained on Decadron as well as Baricitinib for a total of 14 doses, we will continue to monitor his liver function tests, and as he continues to have transaminitis., Patient denies any chest pain at this time he has no abdominal pain, nausea vomiting or diarrhea. 02/18: Patient is seen sitting up in a chair today. He is on AirVO nonrebreather with pulse ox 92%. His been afebrile, heart rate 112, blood pressure 128/73. Patient is currently on dexamethasone, Lovenox and vitamin supplements. He has completed his course of Baricitinib. Repeat blood work reveals WBC 31.2, hemoglobin 15, platelet count 601. Sodium 131, potassium 4.7, chloride 97, CO2 25, BUN 32 creatinine 0.8. Blood sugars are running between 117 and 130s. AST is 198, ALT 875. Alkaline phosphatase 82. 02/19: Patient is currently on AirVo only with pulse ox of 8792%. He has been afebrile, heart rate 107, blood pressure 114/77. Have any nausea vomiting, no diarrhea. He states he is feeling better from yesterday. No repeat chest x-ray is scheduled for today. Repeat blood work will be ordered for tomorrow. Patient is been monitored closely and followed by the pulmonary service since admission. Currently he is on 60 L oxygen via high flow nasal cannula with FiO2 of 68%. Slightly tachypneic and got short of breath when he talks. Labs reviewed WBC 23k, d-dimer 0.75, sodium slightly low 129, potassium slightly high at 5.3, liver enzymes slightly elevated, lactate dehydrogenase is elevated 1114. Poorcalcitonin is 0.19, was 0.08. Chest x-ray showing COPD with patchy bilateral Covid pneumonia. Patient currently kept on dexamethasone 6 mg daily, vitamin C, vitamin D and zinc. Also he is on Pepcid and Lovenox. 02/22/2021 Patient reports some improvement in his shortness of breath. Today following a T-max trying to wean him down with lowering oxygen requirement 60 down to 40 L per minute with FiO2 68 down to 50% this morning. Patient is to cardiac and more tachypneic during these attempts for now, we will keep monitoring. However he does not report any worsening dyspnea. Sodium improved to 134, potassium down to 5.0. He remains on dexamethasone and multiple vitamins. Also he is on Lovenox and Pepcid We will keep monitoring 02/23/2021 Patient today show significant improvement with drop of oxygen requirement down to 15 L/m, patient reports more easier breathing. No much coughing. WBC 20 2K, d-dimer is stable at 0.7. Potassium normal at 4.3. Lactate dehydrogenase still elevated but stable at 1023. Patient remains on the same treatment of dexamethasone, multiple vitamins, Lovenox and Pepcid 02/24/2021 Patient awake and alert, he feels generally weak, significantly dyspneic while talking. Looks more tired and lethargic. Patient is hypoxic requiring 15 L/m nonrebreather and interval of 40 L at 50%, he is tachypneic and tachycardic. Heart rate around 119. Chest x-ray: Chronic parenchymal changes with left mid lung and bibasilar opacities consistent with known covid 19 infection. No significant change. Patient remains on vitamin C, D and zinc, dexamethasone, Lovenox and Pepcid 02/25: Patient is on nonrebreather and AirVo pulse ox of 91%. He's been afebrile, heart rate 118, blood pressure 1 3472. Patient complains of feeling tired. Repeat chest x-ray ordered, Lasix at 40 mg IV every 12 hours, Mucinex ordered. WBC 20.1. Magnesium 2.5. LDH 1039, C-reactive protein 4.3, pro-calcitonin 0.16. Patient is continued on dexamethasone, Lovenox and vitamin supplements. 02/26: Pulse ox is running 89 and 99% with nonrebreather at 15 L and high flow nasal cannula at 15 L. He remains afebrile, heart rate 113, respiratory rate 24, blood pressure 117/72. No repeat blood work today. Patient states he slept well last night but he was having cramps yesterday most likely from diuresing. He did have 3000 ml urine out and Lasix decreased to once daily. Patient has less lower extremity edema and lower extremity ultrasound bilaterally ordered. Patient was complaining of back discomfort for which baclofen will be ordered. Repeat blood work and chest x-ray for tomorrow. Chest x-ray from yesterday reveals coarse basilar infiltrates unchanged from prior study. 02/27: Patient is now on 15 L nonrebreather, off AirVo.. His pulse ox is 95%. He's been afebrile, heart rate 114, respiratory rate 25, blood pressure 130/84. Patient has decreased lower extremity edema will be continued on Lasix 40 mg IV daily. He had a repeat Covid test done yesterday which was positive. Repeat chest x-ray reveals diffuse bilateral lung infiltrates stable. Venous Doppler bilateral lower extremity negative for DVT. 02/28: Patient is seen in follow-up today. He is resting and recliner. He has been afebrile, heart rate 110, blood pressure 122/72, respiratory rate 18-24, pulse ox 97% on high flow nasal cannula and AirVo. Repeat blood work reveals sodium 134, potassium 5.0, chloride 98, CO2 29, BUN 37 creatinine 0.86. Blood sugar 131. Patient is continued on vitamin supplements, dexamethasone, Lovenox. 03/01: The patient is now on nonrebreather only at 15 L with pulse ox of 95%. His been afebrile, heart rate 113, blood pressure 147/75. ekg monitor tech is a sinus rhythm. Patient's breathing status overall is improving but he still has significant shortness of breath with minimal activity. Patient continues to have cough with mild sputum production. We'll plan to remove Cheek catheter tomorrow morning. Cheek catheter was placed as patient was de-satting when he tried to stand to urinate. Urinalysis was also be obtained at that time. 03/02: Patient continues to feel a bit better, he is currently on 15 L along with an nonrebreather, he denies any chest pain his less short of breath, he continues to emboly very carefully, his appetite is okay, he has no diarrhea, he has no pleurisy, he has no hemoptysis, the swelling in both lower extremities are better, we'll continue with supportive care, patient is complaining of increased constipation stool softener along with MiraLAX will be added. 03/03: Patient sitting up in bed is feeling better today, he still didn't have a bowel movement, MiraLAX will be admitted, along with the Senokot 2 tablet a day, continue activity, continue Decadron 6 mg orally once every day, continue to monitor the patient very closely, continue oxygen support with 15 L an nonrebreather as needed, patient appears to be a lot better today than he was yesterday we'll continue to monitor very closely. 03/04: Patient had a bowel movement yesterday after medications. He states his breathing is little bit better today. He's been on high flow nasal cannula 15 L an nonrebreather with pulse ox running between 91 and 95%. He has been afebrile, heart rate 109, blood pressure 124/76. Blood work this morning is pending at the time of this dictation. Patient is continued on Lovenox, dexamethasone oral and vitamin supplements. Patient is followed closely by pulmonary medicine. 03/05: Patient sitting up in the chair continued to be on nonrebreather along with 8 L, he continues to be somewhat short of breath with minimum exertion, his computed tomography scan of the chest showed evidence of pulmonary fibrosis with severe emphysema without evidence of pulmonary embolism, he continues to be on Decadron, we'll continue to follow the patient very closely. 03/06: Patient is continued on nonrebreather and 10 L high flow nasal cannula. He has been afebrile, heart rate in the low 100s, blood pressure 116/70. WBC 11 BUN 32 creatinine 0.87. Blood sugar 109. A LT 77. Patient has been stable with minimal improvement of his oxygenation and unable to wean down on oxygen therapy in order to go home. Discussed with the patient about long-term care facility and he is agreeable, we will plan for or Thursday of this week, social work is following. Is followed by pulmonary medicine. 03/07: Patient has been afebrile, heart rate 110, blood pressure 120/73 and pulse ox of 94% on high flow nasal cannula 6 L nonrebreather. Patient is sleeping in recliner weakens easily to verbal stimuli. No new concerns. Patient has been followed closely by pulmonary medicine and cleared for discharge to LTAC once arrangements are completed. Social work is following closely and trying to make arrangements for discharge today. 03/08: Patient was not discharged to LTAC they will not accept a patient with nonrebreather. In concern that he does not get good oxygenation due to deviated symptoms when using a nasal cannula device. He states that yesterday he got up to the commode chair which was right next to his chair and it took him 3 hours to recuperate. He asked whether an ENT doctor could come in and do a procedure on his nose for the deviated septum but this is not an option. He remains on a nonrebreather as well as AirVo 40 L and FiO2 of 40% with pulse ox of 94%. Heart rate 110, blood pressure 105/72. Patient's been afebrile. We will start we aning off dexamethasone. 03/09: Patient is sitting up in the recliner continues to struggle a lot with his oxygen currently on nonrebreather along with AirVo at 67%, patient was not accepted at LTAC due to the fact that he has been using the nonrebreather, patient is not able to keep his oxidation above 88% without the nonrebreather at this point, we'll discuss with pulmonary medicine, continue to use the nasal saline spray to open up his airways, patient does appear to have a significant degree of the symptom is not getting enough oxygen through his nose, we will continue to follow the patient very closely, prognosis continues to be very guarded, patient is also complaining of significant cramps in his chest wall and abdominal wall due to respiratory failure and possible hypokalemia we will order stat labs including magnesium and potassium along with a CBC as well, follow-up with the patient very closely. 03/10: Patient is sitting up in the recliner he is feeling better is currently on AirVo 67% no NRB continue to try to wean his oxygen saturation down in order for him to be accepted at LTAC patient denies any chest pain at this time he continues to be actually be short of breath, he is being followed by pulmonary medicine, continue supportive care continue to do so done due to steroid-induced myopathy continue physical therapy evaluation. 03/11: Patient is now on AirVo only and without the nonrebreather with pulse ox of 88-90%. He's been afebrile, heart rate 115, blood pressure 144/76. At this point, it appears the patient will qualify for LTAC as he is no longer on the nonrebreather. Social work has been updated. Patient is very anxious to be moving on and looking forward to transfer. 03/12: No significant change in patient's condition. He is still on AirVo at 70% FiO2 and 55 L. We are waiting for insurance authorization for LTAC. Social work is following closely. No changes in his medications. REVIEW OF SYSTEMS: Constitutional: Denies fever, chills, night sweats. No weight change. Denies for weakness, denies fatigue no lethargy. Denies daytime sleepiness. HEENT: No headache. No nasal drainage or congestion. No epistaxis. Reports sore throat. Lungs: Continued shortness of breath with oxygen therapy slowly improving, positive for cough, positive for white sputum production. No wheezing. Reports dyspnea with minimal activity. Cardiovascular: No chest pain, no lower extremity edema. No palpitations. No paroxysmal nocturnal dyspnea. No orthopnea. No lightheadedness or dizziness. No syncopal episodes. Abdominal: denies abdominal pain. No nausea, vomiting. Denies diarrhea. No constipation. No bloody or tarry stools. Reports loss of appetite. Genitourinary: No dysuria, increased frequency, urgency. No urinary retention. Musculoskeletal: positive for myalgias. positive for generalized muscle w eakness, no gait dysfunction, no frequent falls. Reports back pain. No neck pain. Integumentary: No wounds, no lesions. No rash. Neurologic: No aphasia. No facial droop. No change in mentation. No head injury. No headache. No paralysis. No paresthesia. Psychiatric: No depression. No anxiety. Endocrine: Mildly abnormal blood sugars. PHYSICAL EXAMINATION: General: 56-year-old male sitting in recliner no acute respiratory distress at rest. Patient appears to be comfortable. Patient is currently on AirVo only . HEENT: Head is atraumatic, normocephalic, pupils were equal round, sclera nonicteric, conjunctivae were pale. Neck: Supple, no JVP, normal carotid upstroke bilaterally, no lymphadenopathy. Chest: Decreased breath sounds at the bases, few rhonchi, no chest wall tenderness, no intercostal retractions at rest. Heart: First heart sound is normal, second heart sounds normal, there is no gallop or murmur. Abdomen: Soft, nontender, nondistended, positive bowel sounds, no hepatosplenomegaly. Extremities: There is no edema no calf tenderness DP +2 bilaterally. Neurologic examination: Patient is awake alert and oriented X 3, cranial nerves II-12 appear grossly intact, significant proximal muscle weakness in the upper and lower extremities due to possible steroid-induced myopathy. ASSESSMENT AND PLAN: 1. Acute hypoxemic respiratory failure due to bilateral patchy interstitial pneumonia due to COVID-19 pneumonia and sepsis (POA). Continue patient on Lovenox 40 mg subcu daily, Decadron 4 mg orally once every day. Continue Vitamin C 1000 mg orally once every day, zinc 220 mg once every day, vitamin D 1000 units once every day, completed course of Baricitinib, continue oxygen therapy with AirVo, and decrease Lasix 20 mg once every day. 2. Bilateral Covid pneumonia with ARDS and pulmonary fibrosis with severe emphysema. Continue with Airvo, continue dexamethasone 4 mg orally every day, continue with supportive care. 3. Mild non-anion gap metabolic acidosis. Resolved. 4. Moderate protein calorie malnutrition secondary to decreased appetite and difficulty eating with oxygen mask. Continue Ensure 3 times daily. 5. Acute drug-induced hepatitis. Resolved. 6. Underlying emphysema and pulmonary fibrosis. Continue oxygen support, continue with current management. 7. History of tobacco use and dependence. Patient has quit. 8. GERD and GI prophylaxis. Continue patient on Protonix 40 mg oral twice daily. 9. Constipation. Continue Senokot 2 tablet at bedtime along with MiraLAX 17 g in 8 ounces water once every day. 10. DVT prophylaxis. Continue Lovenox 40 mg subcutaneously every 24 hours . 11. Steroid-induced myopathy with proximal muscle weakness. Patient will need to be seen in consultation by physical therapy for increased physical activity. 12. Patient is full code. 13. Guarded prognosis. DISCHARGE PLAN LTAC once arrangements are completed Impression and plan of care have been directed as dictated by the signing physician. Viridiana Baker nurse practitioner acting as scribe for signing physician. Objective - Vital Signs Vital signs: Vital Signs Temp 97.5 F L 03/12/21 08:00 Pulse 118 H 03/12/21 11:24 Resp 22 03/12/21 08:00 BP 133/86 03/12/21 11:24 Pulse Ox 92 L 03/12/21 11:24 Intake & Output 03/11/21 03/12/21 03/12/21 18:59 06:59 18:59 Intake Total 20 10 Output Total 500 750 Balance -500 -730 10 Weight 107.3 kg 76.2 kg Intake: IV 20 10 Invasive Line 6 20 10 Output: Urine 500 750 Other: Voiding Method Urinal Urinal # Voids 1 1 # Bowel Movements 1 1 - Labs CBC & Chem 7: 03/09/21 11:37 03/09/21 11:37
[2021-03-17] MEDS ORDERED: dexAMETHasone 2 MG TAB PO SCH (09:00)
== END 2021-03-13 17:00 | DRG 871 ==
LOC: EC 10:01 → 2SICU 11:55 → 4SSUR 15:10 → 2SICU 02-05 16:57 → 3SCARD 02-15 11:31
PROVIDERS: ADMIT Internal Medicine; ATTEND Internal Medicine
PROC: 5A0955A Assistance with Respiratory Ventilation, Greater than 96 Consecutive Hours, High Flow/Velocity Cannula (ICD-10-PCS; principal; 2021-02-04)
PROC: XW0DXM6 Introduction of Baricitinib into Mouth and Pharynx, External Approach, New Technology Group 6 (ICD-10-PCS; 2021-02-04)
DX: A41.89 Other specified sepsis (principal); J12.82 Pneumonia due to coronavirus disease 2019; J96.01 Acute respiratory failure with hypoxia; U07.1 COVID-19; E44.0 Moderate protein-calorie malnutrition; E87.2 Acidosis; G72.0 Drug-induced myopathy; I31.3 Pericardial effusion (noninflammatory); J44.0 Chronic obstructive pulmonary disease with (acute) lower respiratory infection; D72.810 Lymphocytopenia; E78.5 Hyperlipidemia, unspecified; F41.9 Anxiety disorder, unspecified; I11.9 Hypertensive heart disease without heart failure; J34.2 Deviated nasal septum; J43.9 Emphysema, unspecified; J84.10 Pulmonary fibrosis, unspecified; K21.9 Gastro-esophageal reflux disease without esophagitis; K59.00 Constipation, unspecified; K75.9 Inflammatory liver disease, unspecified; T38.0X5A Adverse effect of glucocorticoids and synthetic analogues, initial encounter; Z79.01 Long term (current) use of anticoagulants; Z79.899 Other long term (current) drug therapy; Z86.11 Personal history of tuberculosis; Z87.891 Personal history of nicotine dependence; M54.9 Dorsalgia, unspecified; R79.89 Other specified abnormal findings of blood chemistry; K71.2 Toxic liver disease with acute hepatitis; T50.995A Adverse effect of other drugs, medicaments and biological substances, initial encounter; Y92.9 Unspecified place or not applicable
CPT/HCPCS: 36410; 36415; 36600; 71045; 71275; 76937; 80048; 80053; 81001; 82805; 83605; 83615; 83735; 83880; 84145; 84484; 85025; 85379; 85610; 85730; 86140; 87635; 93005; 93970; 94760; 96374; 99291